=== PATIENT | female | born 1945 | race Caucasian/White ===

== ENCOUNTER 2020-03-12 11:27 | Outpatient (REF) | payer MEDICARE, MEDICAID, SELFPAY ==
--- NOTE | 2020-03-12 11:31 | MM_ITS ---
EXAMINATION: MM SCREENING DIGITAL BREAST TOMOSYNTHESIS, BILATERAL CLINICAL INFORMATION: Screening. Asymptomatic. The lifetime risk of breast cancer based on the Tyrer-Cuzick Model is 3.0%. COMPARISON: Mammography: March 07, 2019 and studies dating back to November 25, 2009 TECHNIQUE: Digital breast tomosynthesis is performed in both the craniocaudal and mediolateral oblique views along with computer-aided detection (CAD). Synthesized 2D images are generated from the tomosynthesis. FINDINGS: There are scattered areas of fibroglandular density (ACR BI-RADS breast composition Category b). No new abnormal dominant mass or suspicious grouping of microcalcifications identified. Postsurgical changes seen about the upper outer aspect of the left breast. A few stable densities are noted within the right breast. MM/MM tomosynthesis screening BI IMPRESSION: There are no significant changes from prior study. ASSESSMENT: BI-RADS 2: Benign RECOMMENDATION: Routine annual mammography screening. This patient's information was entered into a reminder system with a target due date for their next mammogram.
== END 2020-03-12 11:28 | disposition home or self-care (01) ==
LOC: HO.MAMMO 11:27
PROVIDERS: Visit Provider Internal Medicine
DX: Z12.31 Encounter for screening mammogram for malignant neoplasm of breast (principal)
CPT/HCPCS: 77063; 77067

== ENCOUNTER 2020-04-02 09:04 | Outpatient (REF) | payer MEDICARE, MEDICAID, SELFPAY ==
[2020-04-02 11:41] LABS: Anion Gap 12 (12-20); Blood Urea Nitrogen 16 mg/dL (9-16); Calcium 8.9 mg/dL (8.4-10.2); Carbon Dioxide 30 mmol/L (22-29); Chloride 102 mmol/L (96-108); Estimated Glomerular Filt Rate > 60; Glucose Random 88 mg/dL (60-115); Potassium 4.3 mmol/l (3.3-5.1); Sodium 140 mmol/L (135-145)
== END 2020-04-02 09:05 | disposition home or self-care (01) ==
LOC: HO.HMGCLDS 09:04
PROVIDERS: PCP Internal Medicine; Visit Provider Internal Medicine
DX: E66.9 Obesity, unspecified (principal); I10 Essential (primary) hypertension; K21.9 Gastro-esophageal reflux disease without esophagitis
CPT/HCPCS: 80048

== ENCOUNTER 2020-04-12 11:23 | Outpatient (REF) | payer MEDICARE, MEDICAID, SELFPAY ==
--- NOTE | 2020-04-12 11:23 | XR_ITS ---
EXAMINATION: XR PELVIS CLINICAL INFORMATION: Pelvis and right hip. COMPARISON: 12/14/2019 and 02/06/2019. TECHNIQUE: AP pelvis and single view of the right hip. FINDINGS: There is no evidence of acute fracture or diastasis of the pelvis. Patient is status post right total hip arthroplasty with femoral and acetabular components in position and unchanged since study of 12/14/2019. No acute fracture is appreciated. Left hip joint space unremarkable. A surgical suture line is seen about the left lower quadrant. Degenerative disc disease is seen at the L5-S1 level. XR/XR pelvis 1-2V IMPRESSION: No change in appearance of right total hip arthroplasty. No evidence of acute fracture or diastasis of the pelvis.
== END 2020-04-12 11:24 | disposition home or self-care (01) ==
LOC: HO.HOSX 11:23
PROVIDERS: Visit Provider Orthopaedic Surgery
DX: M25.551 Pain in right hip (principal); Z79.899 Other long term (current) drug therapy; Z87.891 Personal history of nicotine dependence
CPT/HCPCS: 72170; 99212

== ENCOUNTER 2020-08-20 10:01 | Outpatient (REF) | payer MEDICARE, MEDICAID, SELFPAY | END 2020-08-20 10:02 | disposition home or self-care (01) | LOC: HO.HMGCLDS 10:01 | PROVIDERS: Visit Provider Internal Medicine | DX: Z20.822 Contact with and (suspected) exposure to COVID-19 (principal) | CPT/HCPCS: C9803; U0003; U0005 ==

== ENCOUNTER 2021-01-16 06:05 | Outpatient (REF) | payer MEDICARE, MEDICAID, SELFPAY ==
[2021-01-16 11:10] LABS: MANUAL DIFF FLAG NO
[2021-01-16 11:11] LABS: Basophils Percent Auto 0.6 % (0-2); Eosinophils Absolute Auto 0.2 X10*3/uL (0.0-0.4); Eosinophils Percent Auto 2.8 % (0-4); Hematocrit 38.9 % (37-47); Hemoglobin 12.3 g/dl (12.0-16.0); Imm Gran Abs Auto 0.04 X10*3/uL (0.00-0.03); Imm Gran Pct Auto 0.6 % (0.0-0.4); Lymphocytes Absolute Auto 1.3 X10*3/uL (1.2-4.9); Lymphocytes Percent Auto 18.5 % (20-40); Mean Corpuscular HGB Conc 31.6 g/dl (31.0-35.0); Mean Corpuscular Hemoglobin 30.1 pg (27.0-33.0); Mean Corpuscular Volume 95.1 fL (80-98); Monocytes Absolute Auto 0.5 X10*3/uL (0.1-1.2); Neutrophils Absolute Auto 4.7 X10*3/uL (2.0-8.3); Neutrophils Percent Auto 69.5 % (45-73); Platelet Count 322 X10*3/uL (160-400); Red Blood Count 4.09 X10*6/uL (4.20-5.50); Red Cell Distribution Width 13.4 % (11.0-16.0); White Blood Count 6.8 X10*3/uL (4.8-10.8)
[2021-01-16 11:58] LABS: Alanine Aminotransferase < 6 U/L (0-31); Alkaline Phosphatase 112 U/L (39-117); Anion Gap 12 (12-20); Aspartate Amino Transferase 13 U/L (5-31); Bilirubin Total 0.3 mg/dL (0.0-1.0); Blood Urea Nitrogen 15 mg/dL (9-16); Calcium 8.6 mg/dL (8.4-10.2); Carbon Dioxide 30 mmol/L (22-29); Chloride 102 mmol/L (96-108); Estimated Glomerular Filt Rate > 60; Glucose Random 83 mg/dL (60-115); Potassium 3.4 mmol/L (3.3-5.1); Sodium 141 mmol/L (135-145); Total Protein 6.4 g/dL (6.5-8.0)
== END 2021-01-16 06:06 | disposition home or self-care (01) ==
LOC: HO.HMGCLDS 06:05
PROVIDERS: PCP Internal Medicine; Visit Provider Internal Medicine
DX: Z01.818 Encounter for other preprocedural examination (principal); K21.9 Gastro-esophageal reflux disease without esophagitis; I10 Essential (primary) hypertension
CPT/HCPCS: 36415; 80053; 85025

== ENCOUNTER 2021-01-20 07:02 | Day surgery (SDC) | payer MEDICARE, MEDICAID, SELFPAY ==
[2021-01-14 16:27] VITALS: BMI 46.8
--- NOTE | 2021-01-16 07:49 | MHC.SHP ---
Pre-Procedural Eval Section A Date of Service: 01/16/21 The patient is an INPATIENT: No Changes since office visit: No Cold of Flu in the past 2 weeks, No New Medical Problems, No Changes in Medication and No Patient answered all questions The History & Physical has been completed within 30 days and I have reviewed it.: Yes Section B Chief Complaint: Cataract Right Eye Allergies: Allergies Allergy/AdvReac Type Severity Reaction Status Date / Time sucralfate [Carafate] Allergy Unknown hives Verified 01/14/21 16:25 Plan Diagnosis/Plan: Unchanged I have reviewed the history and physical and performed a pertinent physical examination on my patient. No changes have occurred unless specified.
--- NOTE | 2021-01-17 08:20 | P.CONAN_ITS ---
Documented by User: Rosario Ramirez NP 01/17/21 08:21 HPI - Anesthesia Eval Consult details Narrative: 75yo F for Right Cataract Extraction IOL Insertion PCP cleared No previous cataract on record PMFSH Active Problems Active Problems: All Active Problems (Updated 01/14/21 @ 15:25 by Kayla Smith MD) Morbid obesity due to excess calories (Acute) Pre-op evaluation (Acute) Hip pain, right (Acute) Nail fungus (Acute) Obesity (Acute) Chronic GERD (Acute) Depression, major, recurrent (Acute) Hypertension, essential (Acute) Past Medical History Medical History Chronic GERD Depression, major, recurrent Hip pain, right Hypertension, essential Nail fungus Family History Family History Father No problems noted. Mother Alzheimer's disease Maternal Grandmother Cancer Maternal Grandfather No problems noted. Paternal Grandfather No problems noted. Paternal Grandmother No problems noted. Maternal Aunt Cancer Sister No problems noted. Son No problems noted. Daughter No problems noted. Surgical History Surgical History History of bilateral tubal ligation History of tonsillectomy History of total hip arthroplasty Social History Social History Housing: Other (mobile home) Housing Other:: Mobile Home Are you a primary adult live in caregiver to a significant other at home: No Do you presently have visiting nurse or other home services: No Alcohol intake: never Patient Tobacco Use Status: Former Tobacco user Quit Date: 10 yrs ago Tobacco use type: Cigarette Years Smoked: 40 years Use of substances other than those prescribed or required for medical reasons: No Have you been hit, kicked, punched, or otherwise hurt by someone within the past year? If so, by whom?: No Are you DNR?: No Advance Directives: No Advance Directives Information Provided: No Advance Directives on File: No Recently lost weight without trying: No Eating poorly because of decreased appetite: No Nutrition Risks: No Nutritional Risk Patient : No Current occupational status: retired and other Current occupation: right handed Meds Allergies Allergy/AdvReac Type Severity Reaction Status Date / Time sucralfate [Carafate] Allergy Unknown hives Verified 01/14/21 16:25 Home Medications Medication Instructions Recorded Confirmed Last Taken Type aripiprazole 10 mg tablet (Abilify) 10 mg PO DAILY 04/02/20 01/14/21 01/20/21 History ascorbic acid (vitamin C) 1,000 mg 2 g PO DAILY tab 04/02/20 01/14/21 Unknown History tablet bupropion HCl 300 mg 24 hr tablet, 300 mg PO QAM 04/02/20 01/14/21 01/20/21 History extended release (Wellbutrin XL) calcium [calcium citrate] PO DAILY 04/02/20 01/14/21 Unknown History cholecalciferol (vitamin D3) 50 50 mcg PO DAILY 04/02/20 01/14/21 Unknown History mcg (2,000 unit) capsule ferrous sulfate 325 mg (65 mg 325 mg PO DAILY 04/02/20 01/14/21 Unknown History iron) tablet (Feosol) multivitamin (Daily Multi-Vitamin) 1 tab PO DAILY 04/02/20 01/14/21 Unknown History pantoprazole 40 mg tablet,delayed 40 mg PO DAILY 04/02/20 01/14/21 Unknown History release primidone 50 mg tablet 50 mg PO BEDTIME 04/02/20 01/14/21 Unknown History escitalopram oxalate 20 mg tablet 20 mg PO DAILY 07/30/20 01/14/21 01/20/21 History (Lexapro) Exam Exam Date and Time: January 17, 2021 0820 Height,Weight and Vital Signs: Height 5 ft Weight 108.862 kg Assessment and Plan Assessment Anesthesia Assessment: Chart Reviewed Documented by User: Carmen Higuera MD 01/20/21 08:52 [facility] Past Medical History Medical History Chronic GERD Depression, major, recurrent Hip pain, right Hypertension, essential Nail fungus Family History Family History Father No problems noted. Mother Alzheimer's disease Maternal Grandmother Cancer Maternal Grandfather No problems noted. Paternal Grandfather No problems noted. Paternal Grandmother No problems noted. Maternal Aunt Cancer Sister No problems noted. Son No problems noted. Daughter No problems noted. Family history of problems with anesthesia: No Surgical History Surgical History History of bilateral tubal ligation History of tonsillectomy History of total hip arthroplasty History of Problems with Anesthesia: No Social History Social History Housing: Other (mobile home) Housing Other:: Mobile Home Are you a primary adult live in caregiver to a significant other at home: No Do you presently have visiting nurse or other home services: No Alcohol intake: never Patient Tobacco Use Status: Former Tobacco user Quit Date: 10 yrs ago Tobacco use type: Cigarette Years Smoked: 40 years Use of substances other than those prescribed or required for medical reasons: No Have you been hit, kicked, punched, or otherwise hurt by someone within the past year? If so, by whom?: No Are you DNR?: No Advance Directives: No Advance Directives Information Provided: No Advance Directives on File: No Recently lost weight without trying: No Eating poorly because of decreased appetite: No Nutrition Risks: No Nutritional Risk Patient : No Current occupational status: retired and other Current occupation: right handed Meds Allergies Allergy/AdvReac Type Severity Reaction Status Date / Time sucralfate [Carafate] Allergy Unknown hives Verified 01/14/21 16:25 Home Medications Medication Instructions Recorded Confirmed Last Taken Type aripiprazole 10 mg tablet (Abilify) 10 mg PO DAILY 04/02/20 01/14/21 01/20/21 History ascorbic acid (vitamin C) 1,000 mg 2 g PO DAILY tab 04/02/20 01/14/21 Unknown History tablet bupropion HCl 300 mg 24 hr tablet, 300 mg PO QAM 04/02/20 01/14/21 01/20/21 History extended release (Wellbutrin XL) calcium [calcium citrate] PO DAILY 04/02/20 01/14/21 Unknown History cholecalciferol (vitamin D3) 50 50 mcg PO DAILY 04/02/20 01/14/21 Unknown History mcg (2,000 unit) capsule ferrous sulfate 325 mg (65 mg 325 mg PO DAILY 04/02/20 01/14/21 Unknown History iron) tablet (Feosol) multivitamin (Daily Multi-Vitamin) 1 tab PO DAILY 04/02/20 01/14/21 Unknown History pantoprazole 40 mg tablet,delayed 40 mg PO DAILY 04/02/20 01/14/21 Unknown History release primidone 50 mg tablet 50 mg PO BEDTIME 04/02/20 01/14/21 Unknown History escitalopram oxalate 20 mg tablet 20 mg PO DAILY 07/30/20 01/14/21 01/20/21 History (Lexapro) Exam Height,Weight and Vital Signs: Height 5 ft Weight 108.862 kg Vital Signs Temp Pulse Resp BP Pulse Ox 01/20/21 08:03 97.7 F 57 18 173/65 H 96 Airway Mallampati Class: II TM Dist: >3cm Neck ROM: Full Loose/Missing/Broken Teeth: Yes (No teeth) Heart: RRR Lungs: CTAB Assessment and Plan Assessment Anesthesia Assessment: Anesthesia Plan Discussed Final Anesthetic Review Family History of Problems with Anesthesia: No History of Problems with Anesthesia: No NPO: Yes ASA Class: III Final Preanesthetic Review: No Changes in Pt Med Stat, Meds/Allgs Chart Reviewed, Consent Obtained/Reviewed and Anes Risks/Benef Reviewed Patient Risk: Intermediate Procedure Risk: Low Assessment/Block/Sedation in SS: Assess/Block/Sedation-SS Anesthetic Plan Anesthetic Plan: MAC: Disposition: Standard PACU
[2021-01-20 08:03] VITALS: BP 173/65; PULSE 57; RESP 18; TEMP 36.5; O2SAT 96
[2021-01-20] MEDS: Tetracaine HCl/PF 0.5% Oph Sol 4 ML DROPS 1 DROP EYE-RIGHT (08:06)
[2021-01-20] MEDS: Tropicamide 1 % Ophth Sol 3 ML BTL 1 DROP EYE-RIGHT ×3 (08:07→08:14)
[2021-01-20] MEDS: Phenylephrine HCL 2.5% Oph SoL 2 ML BOTTLE 1 DROP EYE-RIGHT ×3 (08:10→08:16)
[2021-01-20] MEDS: Lactated Ringers 500 ML 50 ML IV (08:21)
--- NOTE | 2021-01-20 09:07 | HO.PNOPHT ---
Ophthalmology Procedure Procedure Date of Service: 01/20/21 Ophthalmology Viscoelastic: Ubaldo Mejiat Dual Pack Pro Ophthalmology Lenses: TECBECCA [id number] (21) Procedure Notes: PREOPERATIVE DIAGNOSIS: Decreased visual acuity right eye secondary to cataract POSTOPERATIVE DIAGNOSIS: Same PROCEDURE: Right cataract extraction with intraocular lens insertion SURGEON: Kirk Melara M.D. ANESTHESIA: Topical/MAC ESTIMATED BLOOD LOSS: None COMPLICATIONS: None After obtaining informed consent, the patient was brought to the operating room suite and placed in the supine position. After adequate sedation per anesthesia, topical drops of Tetracaine were given to the right eye. The eye was then prepped and draped in the usual sterile fashion. The operating room microscope was then positioned over the operative eye and a lid speculum placed. A paracentesis was created. Viscoelastic was then instilled into the anterior chamber. A three plane incision was then created temporally, utilizing a 2.85 mm keratome. Capsulotomy forceps were then utilized to create a circular tear capsulotomy. Hydrodissection and hydrodelineation were carried out until adequate mobilization of the nucleus occurred. Phacoemulsification was then utilized to remove the dense central nucleus followed by removal of the cortical material utilizing the automated aspiration irrigation unit. Viscoelastic was instilled into the posterior capsular bag followed by placement of a posterior chamber intraocular lens without difficulty. The residual Viscoelastic was then removed utilizing the automated IA machine. The wound was checked and found to be watertight. The patient tolerated the procedure well and the lid speculum was removed. Intracameral injection of Vigamox 0.1 mL followed by a subtenon injection of Kenalog-40 0.2 mL were administered. The patient will be seen in the a.m.
[2021-01-20 09:30] VITALS: BP 136/71; PULSE 55; RESP 16; TEMP 36.2; O2SAT 96
== END 2021-01-20 09:37 | disposition home or self-care (01) ==
PROVIDERS: PCP Internal Medicine; Visit Provider Ophthalmology
PROC: (CPT 66985; principal; 2021-01-20 09:10)
DX: H25.11 Age-related nuclear cataract, right eye (principal); H52.4 Presbyopia; I10 Essential (primary) hypertension; F32.9 Major depressive disorder, single episode, unspecified; Z87.891 Personal history of nicotine dependence; Z79.899 Other long term (current) drug therapy
CPT/HCPCS: 66984; J2250; J3010; J3300; V2632

== ENCOUNTER 2021-02-03 06:40 | Day surgery (SDC) | payer MEDICARE, MEDICAID, SELFPAY ==
[2021-01-14 16:30] VITALS: BMI 46.8
--- NOTE | 2021-01-29 13:17 | MHC.SHP ---
Pre-Procedural Eval Section A Date of Service: 01/29/21 The patient is an INPATIENT: No Changes since office visit: No Cold of Flu in the past 2 weeks, No New Medical Problems, No Changes in Medication and No Patient answered all questions The History & Physical has been completed within 30 days and I have reviewed it.: Yes Section B Chief Complaint: Cataract Left Eye Allergies: Allergies Allergy/AdvReac Type Severity Reaction Status Date / Time sucralfate [Carafate] Allergy Unknown hives Verified 01/14/21 16:25 Plan Diagnosis/Plan: Unchanged I have reviewed the history and physical and performed a pertinent physical examination on my patient. No changes have occurred unless specified.
--- NOTE | 2021-01-31 08:34 | P.CONAN_ITS ---
Documented by User: Rosario Ramirez NP 01/31/21 08:35 HPI - Anesthesia Eval Consult details Narrative: 75yo F for Left Cataract Extraction IOL Insertion PCP cleared R eye 01/20/21 with MAC: Fent 50, Midaz 2 PMFSH Active Problems Active Problems: All Active Problems (Updated 01/14/21 @ 15:25 by Kayla Smith MD) Obesity (Acute) Pre-op evaluation (Acute) Morbid obesity due to excess calories (Acute) Hip pain, right (Acute) Nail fungus (Acute) Chronic GERD (Acute) Depression, major, recurrent (Acute) Hypertension, essential (Acute) Past Medical History Medical History Chronic GERD Depression, major, recurrent Hip pain, right Hypertension, essential Nail fungus Family History Family History Father No problems noted. Mother Alzheimer's disease Maternal Grandmother Cancer Maternal Grandfather No problems noted. Paternal Grandfather No problems noted. Paternal Grandmother No problems noted. Maternal Aunt Cancer Sister No problems noted. Son No problems noted. Daughter No problems noted. Family history of problems with anesthesia: No Surgical History Surgical History (Updated 01/28/21 @ 15:11 by Shobha Barker RN) History of bilateral tubal ligation History of cataract extraction History of tonsillectomy History of total hip arthroplasty History of Problems with Anesthesia: No Social History Social History Housing: Other (mobile home) Housing Other:: Mobile Home Are you a primary progressive care unit registered nurse to a significant other at home: No Do you presently have visiting nurse or other home services: No Alcohol intake: never Patient Tobacco Use Status: Former Tobacco user Quit Date: 10 yrs ago Tobacco use type: Cigarette Years Smoked: 40 years Use of substances other than those prescribed or required for medical reasons: No Have you been hit, kicked, punched, or otherwise hurt by someone within the past year? If so, by whom?: No Are you DNR?: No Advance Directives: No Advance Directives Information Provided: No Advance Directives on File: No Recently lost weight without trying: No Eating poorly because of decreased appetite: No Nutrition Risks: No Nutritional Risk Patient : No Current occupational status: retired and other Current occupation: right handed Meds Allergies Allergy/AdvReac Type Severity Reaction Status Date / Time sucralfate [Carafate] Allergy Unknown hives Verified 01/14/21 16:25 Home Medications Medication Instructions Recorded Confirmed Last Taken Type aripiprazole 10 mg tablet (Abilify) 10 mg PO DAILY 04/02/20 01/14/21 01/20/21 History ascorbic acid (vitamin C) 1,000 mg 2 g PO DAILY tab 04/02/20 01/14/21 Unknown History tablet bupropion HCl 300 mg 24 hr tablet, 300 mg PO QAM 04/02/20 01/14/21 01/20/21 History extended release (Wellbutrin XL) calcium [calcium citrate] PO DAILY 04/02/20 01/14/21 Unknown History cholecalciferol (vitamin D3) 50 50 mcg PO DAILY 04/02/20 01/14/21 Unknown History mcg (2,000 unit) capsule ferrous sulfate 325 mg (65 mg 325 mg PO DAILY 04/02/20 01/14/21 Unknown History iron) tablet (Feosol) multivitamin (Daily Multi-Vitamin) 1 tab PO DAILY 04/02/20 01/14/21 Unknown History pantoprazole 40 mg tablet,delayed 40 mg PO DAILY 04/02/20 01/14/21 Unknown History release primidone 50 mg tablet 50 mg PO BEDTIME 04/02/20 01/14/21 Unknown History escitalopram oxalate 20 mg tablet 20 mg PO DAILY 07/30/20 01/14/21 01/20/21 History (Lexapro) Exam Exam Date and Time: January 31, 2021 0834 Height,Weight and Vital Signs: Height 5 ft Weight 108.862 kg Assessment and Plan Assessment Anesthesia Assessment: Chart Reviewed Final Anesthetic Review Family History of Problems with Anesthesia: No History of Problems with Anesthesia: No Documented by User: Jose Luis Elizabeth MD 02/03/21 07:07 [facility] Past Medical History Medical History Chronic GERD Depression, major, recurrent Hip pain, right Hypertension, essential Nail fungus Family History Family History Father No problems noted. Mother Alzheimer's disease Maternal Grandmother Cancer Maternal Grandfather No problems noted. Paternal Grandfather No problems noted. Paternal Grandmother No problems noted. Maternal Aunt Cancer Sister No problems noted. Son No problems noted. Daughter No problems noted. Surgical History Surgical History (Updated 01/28/21 @ 15:11 by Shobha Barker RN) History of bilateral tubal ligation History of cataract extraction History of tonsillectomy History of total hip arthroplasty Social History Social History Housing: Other (mobile home) Housing Other:: Mobile Home Are you a primary progressive care unit registered nurse to a significant other at home: No Do you presently have visiting nurse or other home services: No Alcohol intake: never Patient Tobacco Use Status: Former Tobacco user Quit Date: 10 yrs ago Tobacco use type: Cigarette Years Smoked: 40 years Use of substances other than those prescribed or required for medical reasons: No Have you been hit, kicked, punched, or otherwise hurt by someone within the past year? If so, by whom?: No Are you DNR?: No Advance Directives: No Advance Directives Information Provided: No Advance Directives on File: No Recently lost weight without trying: No Eating poorly because of decreased appetite: No Nutrition Risks: No Nutritional Risk Patient : No Current occupational status: retired and other Current occupation: right handed Meds Allergies Allergy/AdvReac Type Severity Reaction Status Date / Time sucralfate [Carafate] Allergy Unknown hives Verified 01/14/21 16:25 Home Medications Medication Instructions Recorded Confirmed Last Taken Type aripiprazole 10 mg tablet (Abilify) 10 mg PO DAILY 04/02/20 01/14/21 01/20/21 History ascorbic acid (vitamin C) 1,000 mg 2 g PO DAILY tab 04/02/20 01/14/21 Unknown History tablet bupropion HCl 300 mg 24 hr tablet, 300 mg PO QAM 04/02/20 01/14/21 01/20/21 History extended release (Wellbutrin XL) calcium [calcium citrate] PO DAILY 04/02/20 01/14/21 Unknown History cholecalciferol (vitamin D3) 50 50 mcg PO DAILY 04/02/20 01/14/21 Unknown History mcg (2,000 unit) capsule ferrous sulfate 325 mg (65 mg 325 mg PO DAILY 04/02/20 01/14/21 Unknown History iron) tablet (Feosol) multivitamin (Daily Multi-Vitamin) 1 tab PO DAILY 04/02/20 01/14/21 Unknown History pantoprazole 40 mg tablet,delayed 40 mg PO DAILY 04/02/20 01/14/21 Unknown History release primidone 50 mg tablet 50 mg PO BEDTIME 04/02/20 01/14/21 Unknown History escitalopram oxalate 20 mg tablet 20 mg PO DAILY 07/30/20 01/14/21 01/20/21 History (Lexapro) Exam Airway Mallampati Class: III TM Dist: >3cm Neck ROM: Full Denture: Upper and Lower Heart: [id number] Lungs: cta b/l Assessment and Plan Assessment Anesthesia Assessment: Anesthesia Plan Discussed Final Anesthetic Review NPO: Yes ASA Class: III Final Preanesthetic Review: No Changes in Pt Med Stat, Meds/Allgs Chart Reviewed, Consent Obtained/Reviewed and Anes Risks/Benef Reviewed Patient Risk: Intermediate Procedure Risk: Low Assessment/Block/Sedation in SS: Assess/Block/Sedation-SS Anesthetic Plan Anesthetic Plan: MAC: and Agree w/ Assess. and Plan Disposition: Standard PACU
[2021-02-03 06:59] VITALS: BP 160/68; PULSE 63; RESP 16; TEMP 36.1; O2SAT 98
[2021-02-03] MEDS: Tetracaine HCl/PF 0.5% Oph Sol 4 ML DROPS 1 DROP EYE-LEFT (07:05)
[2021-02-03] MEDS: Lactated Ringers 500 ML 50 ML IV (07:06)
[2021-02-03] MEDS: Tropicamide 1 % Ophth Sol 3 ML BTL 1 DROP EYE-LEFT ×3 (07:07→07:20)
[2021-02-03] MEDS: Phenylephrine HCL 2.5% Oph SoL 2 ML BOTTLE 1 DROP EYE-LEFT ×3 (07:11→07:23)
--- NOTE | 2021-02-03 08:24 | HO.PNOPHT ---
Ophthalmology Procedure Procedure Date of Service: 02/03/21 Ophthalmology Viscoelastic: Healon Duet Dual Pack Pro Ophthalmology Lenses: TECNIS [id number] (21.5) Procedure Notes: PREOPERATIVE DIAGNOSIS: Decreased visual acuity left eye secondary to cataract POSTOPERATIVE DIAGNOSIS: Same PROCEDURE: Left cataract extraction with intraocular lens insertion SURGEON: Kirk Melara M.D. ANESTHESIA: Topical/MAC ESTIMATED BLOOD LOSS: None COMPLICATIONS: None After obtaining informed consent, the patient was brought to the operation room suite and placed in the supine position. After adequate sedation per anesthesia, topical drops of Tetracaine were given to the left eye. The eye was then prepped and draped in the usual sterile fashion. The operating room microscope was then positioned over the operative eye and a lid speculum placed. A paracentesis was created. Viscoelastic was then instilled into the anterior chamber. A three plane incision was then created temporally, utilizing a 2.85 mm keratome. Capsulotomy forceps were then utilized to create a circular tear capsulotomy. Hydrodissection and hydrodelineation were carried out until adequate mobilization of the nucleus occurred. Phacoemulsification was then utilized to remove the dense central nucleus followed by removal of the cortical material utilizing the automated aspiration irrigation unit. Viscoat elastic was instilled into the posterior capsular bag followed by placement of a posterior chamber intraocular lens without difficulty. The residual Viscoat elastic was then removed utilizing the automated IA machine. The wound was check and found to be watertight. The patient tolerated the procedure well and the lid speculum was removed. Intracameral injection of Vigamox 0.1 mL followed by a subtenon injection of Kenalog-40 0.2 mL were administered. The patient will be seen in the a.m.
[2021-02-03 08:44] VITALS: BP 150/72; PULSE 53; RESP 12; TEMP 36.1; O2SAT 98
== END 2021-02-03 08:57 | disposition home or self-care (01) ==
PROVIDERS: PCP Internal Medicine; Visit Provider Ophthalmology
PROC: (CPT 66985; principal; 2021-02-03 08:20)
DX: H25.12 Age-related nuclear cataract, left eye (principal)
CPT/HCPCS: 66984; J2250; J3010; J3300; V2632

== ENCOUNTER 2021-03-14 07:16 | Outpatient (REF) | payer MEDICARE, MEDICAID, SELFPAY ==
--- NOTE | ~2021-03-14 | MM_ITS ---
EXAMINATION: MM SCREENING DIGITAL BREAST TOMOSYNTHESIS, BILATERAL CLINICAL INFORMATION: Screening. Asymptomatic. The lifetime risk of breast cancer based on the Tyrer-Cuzick Model is 2%. COMPARISON: Mammography: 03/12/2020, 03/07/2019, 02/26/2018 TECHNIQUE: Digital breast tomosynthesis is performed in both the craniocaudal and mediolateral oblique views along with computer-aided detection (CAD). Synthesized 2D images are generated from the tomosynthesis. FINDINGS: There are scattered areas of fibroglandular density (ACR BI-RADS breast composition Category b). There are no significant masses, abnormal calcifications, or other abnormalities. Parenchymal pattern is similar to prior studies. There is a biopsy clip marker again seen central lower left breast the axilla and skin contours are unremarkable. No significant changes. MM/MM tomosynthesis screening BI IMPRESSION: No mammographic evidence of malignancy. ASSESSMENT: BI-RADS 2: Benign RECOMMENDATION: Routine annual mammography screening. This patient's information was entered into a reminder system with a target due date for their next mammogram.
== END 2021-03-14 07:17 | disposition home or self-care (01) ==
LOC: HO.MAMMO 07:16
PROVIDERS: Visit Provider Internal Medicine
DX: Z12.31 Encounter for screening mammogram for malignant neoplasm of breast (principal)
CPT/HCPCS: 77063; 77067

== ENCOUNTER 2021-05-08 08:21 | Outpatient (REF) | payer MEDICARE, MEDICAID, SELFPAY | END 2021-05-08 08:22 | disposition home or self-care (01) | LOC: HO.HMGCLDS 08:21 | PROVIDERS: Visit Provider Internal Medicine | DX: Z20.822 Contact with and (suspected) exposure to COVID-19 (principal) | CPT/HCPCS: C9803; U0003; U0005 ==

== ENCOUNTER 2021-05-19 06:29 | Outpatient (REF) | payer MEDICARE, MEDICAID, SELFPAY ==
[2021-05-19 12:18] LABS: Anion Gap 11 (12-20); Blood Urea Nitrogen 19 mg/dL (9-16); Carbon Dioxide 32 mmol/L (22-29); Chloride 103 mmol/L (96-108); Estimated Glomerular Filt Rate > 60; Potassium 3.7 mmol/L (3.3-5.1); Sodium 142 mmol/L (135-145)
== END 2021-05-19 06:30 | disposition home or self-care (01) ==
LOC: HO.HMGCLDS 06:29
PROVIDERS: PCP Internal Medicine; Visit Provider Internal Medicine
DX: K21.9 Gastro-esophageal reflux disease without esophagitis (principal); E66.01 Morbid (severe) obesity due to excess calories; I10 Essential (primary) hypertension
CPT/HCPCS: 36415; 80051; 82565; 84520

== ENCOUNTER → 2021-09-11 10:41 | Outpatient (BNVA) | payer MEDICARE, MEDICAID, SELFPAY | PROVIDERS: PCP Internal Medicine; Visit Provider Physician Assistant | DX: E66.01 Morbid (severe) obesity due to excess calories (principal); Z98.84 Bariatric surgery status | CPT/HCPCS: 99212 ==

== ENCOUNTER 2021-09-15 06:35 | Outpatient (REF) | payer MEDICARE, MEDICAID, SELFPAY ==
[2021-09-15 11:20] LABS: MANUAL DIFF FLAG NO
[2021-09-15 11:28] LABS: Basophils Percent Auto 0.4 % (0-2); Eosinophils Absolute Auto 0.1 X10*3/uL (0.0-0.4); Eosinophils Percent Auto 0.9 % (0-4); Hematocrit 40.9 % (37.0-47.0); Hemoglobin 12.7 g/dl (12.0-16.0); Imm Gran Abs Auto 0.02 X10*3/uL (0.00-0.03); Imm Gran Pct Auto 0.4 % (0.0-0.4); Lymphocytes Absolute Auto 1.5 X10*3/uL (1.2-4.9); Lymphocytes Percent Auto 27.5 % (20-40); Mean Corpuscular HGB Conc 31.1 g/dl (31.0-35.0); Mean Corpuscular Hemoglobin 30.2 pg (27.0-33.0); Mean Corpuscular Volume 97.1 fL (80.0-98.0); Mean Platelet Volume 9.4 fL (9.4-12.3); Monocytes Absolute Auto 0.4 X10*3/uL (0.1-1.2); Neutrophils Absolute Auto 3.5 x10*3/uL (2.0-8.3); Neutrophils Percent Auto 62.8 % (45-73); Platelet Count 296 X10*3/uL (160-400); Red Blood Count 4.21 X10*6/uL (4.20-5.50); Red Cell Distribution Width 13.8 % (11.0-16.0); White Blood Count 5.5 X10*3/uL (4.8-10.8)
[2021-09-15 11:42] LABS: Estimated Average Glucose 103 mg/dL; Hemoglobin A1c % 5.2 %
[2021-09-15 11:50] LABS: Alanine Aminotransferase 11 U/L (0-31); Alkaline Phosphatase 99 U/L (39-117); Anion Gap 16 (12-20); Aspartate Amino Transferase 19 U/L (5-31); Bilirubin Total 0.3 mg/dL (0.0-1.0); Blood Urea Nitrogen 26 mg/dL (9-16); Calcium 9.4 mg/dL (8.4-10.2); Carbon Dioxide 30 mmol/L (22-29); Chloride 98 mmol/L (96-108); Cholesterol 175 mg/dL; Estimated Glomerular Filt Rate > 60; Glucose Fasting 88 mg/dL (60-99); HDL Cholesterol 55 mg/dL; Iron 42 mcg/dL (30-160); LDL Cholesterol Calculated 91 mg/dl; Percent Iron Saturation 14 % (15-50); Potassium 3.6 mmol/L (3.3-5.1); Sodium 140 mmol/L (135-145); Total Iron Binding Capacity 300 mcg/dL (228-428); Total Protein 6.7 g/dL (6.5-8.0); Triglycerides 148 mg/dL; Unsaturated Iron Binding 258 ug/dL
[2021-09-15 11:58] LABS: Ferritin 233 ng/mL (10-250); Insulin 6 uU/mL (2-29); TSH reflex Free T4 1.12 uIU/mL (0.32-4.0); Vitamin D 25-OH Total 20.6 ng/mL (>30)
[2021-09-15 12:18] LABS: Folate > 20.0 ng/mL (> or = 4.0); Vitamin B12 1052 pg/mL (200-900)
[2021-09-16 12:42] LABS: Calcium (PTHI) 9.1 mg/dL (8.6-10.4); PTHI 77 pg/mL (16-77)
[2021-09-18 00:03] LABS: Zinc 69 mcg/dL (60-130)
[2021-09-18 22:37] LABS: Vitamin A 65 mcg/dL (38-98)
[2021-09-22 04:41] LABS: Vitamin B1 34 nmol/L (8-30)
== END 2021-09-15 06:36 | disposition home or self-care (01) ==
LOC: HO.HMGCLDS 06:35
PROVIDERS: PCP Internal Medicine; Visit Provider Physician Assistant
DX: Z00.01 Encounter for general adult medical examination with abnormal findings (principal); E66.01 Morbid (severe) obesity due to excess calories; K21.9 Gastro-esophageal reflux disease without esophagitis; I10 Essential (primary) hypertension; F33.9 Major depressive disorder, recurrent, unspecified; Z98.84 Bariatric surgery status; Z91.14 Patient's other noncompliance with medication regimen
CPT/HCPCS: 36415; 80053; 80061; 82306; 82607; 82728; 82746; 83036; 83525; 83540; 83970; 84425; 84443; 84590; 84630; 85025; 86140

== ENCOUNTER → 2021-09-19 12:51 | Outpatient (BNVA) | payer MEDICARE, MEDICAID, SELFPAY | PROVIDERS: PCP Internal Medicine; Referring Provider Internal Medicine; Visit Provider Nurse Practitioner | DX: Z12.11 Encounter for screening for malignant neoplasm of colon (principal); Z80.0 Family history of malignant neoplasm of digestive organs | CPT/HCPCS: 99202 ==

== ENCOUNTER 2021-10-03 14:38 | Emergency (ER) | payer MEDICARE, MEDICAID, SELFPAY ==
[2021-10-03 16:06] VITALS: BP 138/61; PULSE 71; RESP 16; TEMP 36.8; O2SAT 96; BMI 41.0
--- NOTE | 2021-10-03 20:44 | PC.NURSE ---
Jerman ROCHA called for pt in the waiting room, but no response.
== END 2021-10-03 20:46 | disposition left against medical advice (07) ==
LOC: HO.ED 20:46
PROVIDERS: Emergency Provider Emergency Medicine; PCP Internal Medicine
DX: L02.415 Cutaneous abscess of right lower limb (principal)
CPT/HCPCS: 99281

== ENCOUNTER → 2021-10-10 09:57 | Outpatient (BNVA) | payer MEDICARE, MEDICAID, SELFPAY | PROVIDERS: PCP Internal Medicine; Visit Provider Physician Assistant | DX: E66.01 Morbid (severe) obesity due to excess calories (principal); Z68.42 Body mass index [BMI] 45.0-49.9, adult; Z98.84 Bariatric surgery status | CPT/HCPCS: 99212 ==

== ENCOUNTER 2021-10-14 13:55 | Outpatient (REF) | payer MEDICARE, MEDICAID, SELFPAY | END 2021-10-14 13:56 | disposition home or self-care (01) | LOC: HO.LNP 13:55 | PROVIDERS: Visit Provider Emergency Medicine | DX: T14.8XXA Other injury of unspecified body region, initial encounter (principal) | CPT/HCPCS: 87071; 87077; 87186; 87205 ==

== ENCOUNTER 2021-10-21 11:30 | Outpatient (REF) | payer MEDICARE, MEDICAID, SELFPAY ==
--- NOTE | ~2021-10-21 | XR_ITS ---
EXAMINATION: XR HIP, RIGHT CLINICAL INFORMATION: Pain right hip. COMPARISON: AP pelvis 04/12/2020 TECHNIQUE: Two views of the right hip. FINDINGS: There is a total right hip prosthesis with the prosthetic components in satisfactory alignment. No periprosthetic loosening or fracture seen. Rest the visualized right hip is normal. There is hypertrophic bony changes along the greater and lesser trochanter. XR/XR hip RT min 2V IMPRESSION: Total right hip arthroplasty with prosthetic components in satisfactory alignment. Hypertrophic bony changes are seen along the greater and lesser trochanter.
[2021-10-21 13:56] LABS: Cholesterol 172 mg/dL; Estimated Glomerular Filt Rate > 60; HDL Cholesterol 52 mg/dL; LDL Cholesterol Calculated 89 mg/dl; Triglycerides 155 mg/dL
[2021-10-21 14:12] LABS: TSH reflex Free T4 0.73 uIU/mL (0.32-4.0)
[2021-10-21 14:28] LABS: Vitamin B12 1269 pg/mL (200-900)
== END 2021-10-21 11:31 | disposition home or self-care (01) ==
LOC: HO.HMGCX 11:30
PROVIDERS: PCP Internal Medicine; Visit Provider Internal Medicine
DX: Z00.01 Encounter for general adult medical examination with abnormal findings (principal); M25.551 Pain in right hip; E66.01 Morbid (severe) obesity due to excess calories; F33.9 Major depressive disorder, recurrent, unspecified; I10 Essential (primary) hypertension; K21.9 Gastro-esophageal reflux disease without esophagitis
CPT/HCPCS: 36415; 73502; 80061; 82565; 82607; 84443

== ENCOUNTER → 2021-11-07 08:18 | Outpatient (BNVA) | payer MEDICARE, MEDICAID, SELFPAY | PROVIDERS: PCP Internal Medicine; Visit Provider Surgery | DX: M25.551 Pain in right hip (principal); E66.9 Obesity, unspecified; Z68.42 Body mass index [BMI] 45.0-49.9, adult | CPT/HCPCS: 99202 ==

== ENCOUNTER → 2021-11-14 09:16 | Outpatient (BNVA) | payer MEDICARE, MEDICAID, SELFPAY | PROVIDERS: PCP Internal Medicine; Visit Provider Physician Assistant | DX: E66.01 Morbid (severe) obesity due to excess calories (principal); Z68.41 Body mass index [BMI] 40.0-44.9, adult; Z98.84 Bariatric surgery status | CPT/HCPCS: 99212 ==

== ENCOUNTER 2021-11-18 09:33 | Outpatient (REF) | payer MEDICARE, MEDICAID, SELFPAY ==
--- NOTE | ~2021-11-18 | CT_ITS ---
EXAMINATION: CT PELVIS WITHOUT CONTRAST CLINICAL INFORMATION: Enterococcus as the cause of diseases classified elsewhere. COMPARISON: Prior CT from 2010. TECHNIQUE: Helical scanning was performed with submillimeter collimation through the pelvis. Sagittal and coronal multiplanar 2-D reconstructions were obtained. CONTRAST: None DLP: 1314 mGy-cm FINDINGS: PELVIC ORGANS: There is diverticulosis without CT evidence of acute diverticulitis. Rectal and perirectal fat are clear. Urinary bladder not well visualized, partially obscured by beam-hardening artifact from right hip prosthesis. There is diverticulosis of the sigmoid colon without evidence of acute diverticulitis. There are surgical suture lines. No CT evidence of obstruction or dehiscence. 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 Right hip prosthesis device in place causing metal artifact. Mild DJD left hip. No CT evidence of a fracture. There are compression fractures of lower lumbar vertebrae included at the margin of the study, indeterminate age. SOFT TISSUES: There is a small anterior abdominal wall hernia measuring 1.4 cm containing fat only. OTHERS: There are heavy vascular calcifications. Appendix visualized normal in diameter. There is no CT evidence of loculated fluid collection, abscess or other findings to explain patient's symptoms. CT/CT pelvis wo con IMPRESSION: *Right hip prosthesis device in place, there is metal artifact, image distortion by beam-hardening artifact, no evidence of volume forming fluid collection or abscess or other reason to explain patient's symptoms. *Diverticulosis without evidence of acute diverticulitis. *Partial compression fractures of L3, L4 and L5, indeterminate age, degenerative changes of the SI joints and left hip. *Suture line colonic anastomosis, no evidence of obstruction or dehiscence. *Normal appendix.
== END 2021-11-18 09:34 | disposition home or self-care (01) ==
LOC: HO.CT 09:33
PROVIDERS: Absent Provider Orthopaedic Surgery; PCP Internal Medicine; Visit Provider Surgery
DX: M25.551 Pain in right hip (principal); B95.2 Enterococcus as the cause of diseases classified elsewhere; E66.9 Obesity, unspecified
CPT/HCPCS: 72192

== ENCOUNTER → 2021-11-21 13:17 | Outpatient (BNVA) | payer MEDICARE, MEDICAID, SELFPAY | PROVIDERS: PCP Internal Medicine; Visit Provider Surgery | DX: M25.551 Pain in right hip (principal); B95.2 Enterococcus as the cause of diseases classified elsewhere; Z96.641 Presence of right artificial hip joint | CPT/HCPCS: 99212 ==

== ENCOUNTER 2021-11-28 07:45 | Outpatient (REF) | payer MEDICARE, MEDICAID, SELFPAY ==
--- NOTE | ~2021-11-28 | XR_ITS ---
EXAMINATION: XR HIP, RIGHT CLINICAL INFORMATION: Right hip pain. COMPARISON: None TECHNIQUE: AP pelvis and 2 views right hip. FINDINGS: AP PELVIS: There is a total right hip prosthesis. The left hip joint space is maintained. SI joints are symmetrical and normal. There is mild osteopenia. AP and frog-leg views right hip reveal right hip prosthesis in good alignment. There is no periprosthetic fracture seen. There is no periprosthetic loosening. The soft tissues are normal. XR/XR hip RT w PEL1V IMPRESSION: Total right hip prosthesis in satisfactory alignment. There is no periprosthetic fracture or loosening seen on this exam. The left hip joint and rest of the pelvis is unremarkable. There is mild osteopenia.
== END 2021-11-28 07:46 | disposition home or self-care (01) ==
LOC: HO.HOSX 07:45
PROVIDERS: Visit Provider Physician Assistant
DX: Z96.641 Presence of right artificial hip joint (principal); B95.2 Enterococcus as the cause of diseases classified elsewhere
CPT/HCPCS: 73502; 99212

== ENCOUNTER 2021-11-28 10:26 | Outpatient (REF) | payer MEDICARE, MEDICAID, SELFPAY ==
[2021-11-28 10:42] LABS: MANUAL DIFF FLAG NO
[2021-11-28 11:04] LABS: Basophils Percent Auto 0.4 % (0-2); Eosinophils Absolute Auto 0.1 X10*3/uL (0.0-0.4); Eosinophils Percent Auto 1.5 % (0-4); Hematocrit 40.5 % (37.0-47.0); Hemoglobin 12.6 g/dl (12.0-16.0); Imm Gran Abs Auto 0.01 X10*3/uL (0.00-0.03); Imm Gran Pct Auto 0.2 % (0.0-0.4); Lymphocytes Absolute Auto 1.5 X10*3/uL (1.2-4.9); Lymphocytes Percent Auto 28.2 % (20-40); Mean Corpuscular HGB Conc 31.1 g/dl (31.0-35.0); Mean Corpuscular Hemoglobin 30.2 pg (27.0-33.0); Mean Corpuscular Volume 97.1 fL (80.0-98.0); Mean Platelet Volume 8.8 fL (9.4-12.3); Monocytes Absolute Auto 0.5 X10*3/uL (0.1-1.2); Monocytes Percent Auto 9.4 % (2-11); Neutrophils Absolute Auto 3.2 x10*3/uL (2.0-8.3); Neutrophils Percent Auto 60.3 % (45-73); Platelet Count 265 X10*3/uL (160-400); Red Blood Count 4.17 X10*6/uL (4.20-5.50); Red Cell Distribution Width 13.3 % (11.0-16.0); White Blood Count 5.2 X10*3/uL (4.8-10.8)
[2021-11-28 11:45] LABS: Erythrocyte Sedimentation Rate 23 MM/HR (0-20)
[2021-12-01 14:32] LABS: CRP High Sensitivity >10.0 mg/L
== END 2021-11-28 10:27 | disposition home or self-care (01) ==
LOC: HO.LAB 10:26
PROVIDERS: PCP Internal Medicine; Visit Provider Physician Assistant
DX: Z96.649 Presence of unspecified artificial hip joint (principal); B95.2 Enterococcus as the cause of diseases classified elsewhere
CPT/HCPCS: 36415; 85025; 85652; 86141

== ENCOUNTER → 2021-12-02 09:19 | Outpatient (BNVA) | payer MEDICARE, MEDICAID, SELFPAY | PROVIDERS: PCP Internal Medicine; Visit Provider Physician Assistant | DX: Z96.649 Presence of unspecified artificial hip joint (principal); B95.2 Enterococcus as the cause of diseases classified elsewhere | CPT/HCPCS: 99212 ==

== ENCOUNTER → 2021-12-08 08:48 | Outpatient (BNVA) | payer MEDICARE, MEDICAID, SELFPAY | PROVIDERS: PCP Internal Medicine; Visit Provider Orthopaedic Surgery | DX: Z96.649 Presence of unspecified artificial hip joint (principal); S71.001A Unspecified open wound, right hip, initial encounter; S71.101A Unspecified open wound, right thigh, initial encounter | CPT/HCPCS: 99212 ==

== ENCOUNTER 2021-12-24 07:40 | Day surgery (SDC) | payer MEDICARE, MEDICAID, SELFPAY ==
--- NOTE | 2021-12-23 11:55 | P.CONAN_ITS ---
Documented by User: Rosario Ramirez NP 12/23/21 11:56 HPI - Anesthesia Eval Consult details Narrative: 76yo F for Right Debridement Soft Tissue of hip PMFSH Active Problems Active Problems: All Active Problems (Updated 12/08/21 @ 16:34 by Kishor Roldan MD) Open wound of right hip and thigh (Acute) Traumatic seroma of right thigh (Acute) Postprocedural seroma of skin and subcutaneous tissue following other procedure (Acute) History of total hip arthroplasty (Acute) Enterococcus faecalis infection (Acute) Abscess (Acute) Hip pain, right (Acute) Family history of colon cancer (Acute) S/P gastric bypass (Acute) Colon cancer screening (Acute) Encounter for general adult medical examination with abnormal findings (Acute) Obesity (Acute) Pre-op evaluation (Acute) Morbid obesity due to excess calories (Acute) Hip pain, right (Acute) Nail fungus (Acute) Chronic GERD (Acute) Depression, major, recurrent (Acute) Hypertension, essential (Acute) Past Medical History Medical History Chronic GERD Depression, major, recurrent Hip pain, right Hypertension, essential Nail fungus Family History Family History Father No problems noted. Mother Alzheimer's disease Maternal Grandmother Cancer Maternal Grandfather No problems noted. Paternal Grandfather No problems noted. Paternal Grandmother No problems noted. Maternal Aunt Cancer Sister Colon cancer Son No problems noted. Daughter No problems noted. Family history of problems with anesthesia: No Surgical History Surgical History History of bilateral tubal ligation History of cataract extraction History of tonsillectomy History of total hip arthroplasty History of Problems with Anesthesia: No Social History Social History Housing: Other (mobile home) Housing Other:: Mobile Home Are you a primary director of home care hospice to a significant other at home: No Do you presently have visiting nurse or other home services: No Alcohol intake: never Patient Tobacco Use Status: Former Tobacco user Quit Date: 10 yrs ago Tobacco use type: Cigarette Years Smoked: 40 years Current occupational status: retired and other Current occupation: right handed Cognitive needs: No Hearing needs: No Vision needs: No Meds Allergies Allergy/AdvReac Type Severity Reaction Status Date / Time sucralfate [Carafate] Allergy Unknown hives Verified 11/28/21 09:40 Home Medications Medication Instructions Recorded Confirmed Last Taken Type aripiprazole 10 mg tablet (Abilify) 10 mg PO DAILY 04/02/20 11/21/21 01/20/21 History ascorbic acid (vitamin C) 1,000 mg 2 g PO DAILY 04/02/20 11/21/21 Unknown History tablet bupropion HCl 300 mg 24 hr tablet, 300 mg PO QAM 04/02/20 11/21/21 01/20/21 History extended release (Wellbutrin XL) calcium [calcium citrate] PO DAILY 04/02/20 11/21/21 Unknown History cholecalciferol (vitamin D3) 50 50 mcg PO DAILY 04/02/20 11/21/21 Unknown History mcg (2,000 unit) capsule ferrous sulfate 325 mg (65 mg 325 mg PO DAILY 04/02/20 11/21/21 Unknown History iron) tablet (Feosol) multivitamin (Daily Multi-Vitamin 1 tab PO DAILY 04/02/20 11/21/21 Unknown History tablet) primidone 50 mg tablet 50 mg PO BEDTIME 04/02/20 11/21/21 Unknown History escitalopram oxalate 20 mg tablet 20 mg PO DAILY 07/30/20 11/21/21 01/20/21 History (Lexapro) bupropion HCl 150 mg 24 hr tablet, 150 mg PO QAM 08/06/21 11/21/21 Unknown History extended release metformin 500 mg tablet 500 mg PO DAILY 08/06/21 11/21/21 Unknown History propranolol 60 mg capsule,24 60 mg PO DAILY 09/19/21 11/21/21 Unknown History hr,extended release hydroxyzine HCl 25 mg tablet 25 mg PO BID 11/14/21 11/21/21 Unknown History Exam Exam Date and Time: December 23, 2021 1155 Pertinent Lab Results Pertinent Lab Results: Laboratory Tests 09/15/21 10/21/21 11/28/21 06:53 11:48 10:39 WBC 5.2 Hgb 12.6 Hct 40.5 Plt Count 265 Sodium 140 Potassium 3.6 Chloride 98 Carbon Dioxide 30 H BUN 26 H Creatinine 0.81 Assessment and Plan Assessment Anesthesia Assessment: Chart Reviewed Final Anesthetic Review Family History of Problems with Anesthesia: No History of Problems with Anesthesia: No Documented by User: Kishor Palomo MD 12/24/21 15:54 [facility] Past Medical History Medical History Chronic GERD Depression, major, recurrent Hip pain, right Hypertension, essential Nail fungus Functional capacity: independent ambulation Family History Family History Father No problems noted. Mother Alzheimer's disease Maternal Grandmother Cancer Maternal Grandfather No problems noted. Paternal Grandfather No problems noted. Paternal Grandmother No problems noted. Maternal Aunt Cancer Sister Colon cancer Son No problems noted. Daughter No problems noted. Surgical History Surgical History History of bilateral tubal ligation History of cataract extraction History of tonsillectomy History of total hip arthroplasty Social History Social History Housing: Other (mobile home) Housing Other:: Mobile Home Are you a primary director of home care hospice to a significant other at home: No Do you presently have visiting nurse or other home services: No Alcohol intake: never Patient Tobacco Use Status: Former Tobacco user Quit Date: 10 yrs ago Tobacco use type: Cigarette Years Smoked: 40 years Current occupational status: retired and other Current occupation: right handed Cognitive needs: No Hearing needs: No Vision needs: No Meds Allergies Allergy/AdvReac Type Severity Reaction Status Date / Time sucralfate [Carafate] Allergy Unknown hives Verified 11/28/21 09:40 Home Medications Medication Instructions Recorded Confirmed Last Taken Type aripiprazole 10 mg tablet (Abilify) 10 mg PO DAILY 04/02/20 11/21/21 01/20/21 History ascorbic acid (vitamin C) 1,000 mg 2 g PO DAILY 04/02/20 11/21/21 Unknown History tablet bupropion HCl 300 mg 24 hr tablet, 300 mg PO QAM 04/02/20 11/21/21 01/20/21 History extended release (Wellbutrin XL) calcium [calcium citrate] PO DAILY 04/02/20 11/21/21 Unknown History cholecalciferol (vitamin D3) 50 50 mcg PO DAILY 04/02/20 11/21/21 Unknown History mcg (2,000 unit) capsule ferrous sulfate 325 mg (65 mg 325 mg PO DAILY 04/02/20 11/21/21 Unknown History iron) tablet (Feosol) multivitamin (Daily Multi-Vitamin 1 tab PO DAILY 04/02/20 11/21/21 Unknown History tablet) primidone 50 mg tablet 50 mg PO BEDTIME 04/02/20 11/21/21 Unknown History escitalopram oxalate 20 mg tablet 20 mg PO DAILY 07/30/20 11/21/21 01/20/21 History (Lexapro) bupropion HCl 150 mg 24 hr tablet, 150 mg PO QAM 08/06/21 11/21/21 Unknown History extended release metformin 500 mg tablet 500 mg PO DAILY 08/06/21 11/21/21 Unknown History propranolol 60 mg capsule,24 60 mg PO DAILY 09/19/21 11/21/21 Unknown History hr,extended release hydroxyzine HCl 25 mg tablet 25 mg PO BID 11/14/21 11/21/21 Unknown History Exam Airway Mallampati Class: III TM Dist: >3cm Neck ROM: Full Loose/Missing/Broken Teeth: Yes Heart: S1,S2 Lungs: distant breath sounds Assessment and Plan Assessment Anesthesia Assessment: Anesthesia Plan Discussed Final Anesthetic Review NPO: Yes ASA Class: III Final Preanesthetic Review: Meds/Allgs Chart Reviewed, Consent Obtained/Reviewed and Anes Risks/Benef Reviewed Patient Risk: Intermediate Procedure Risk: Intermediate Anesthetic Plan Anesthetic Plan: GA Disposition: Standard PACU
[2021-12-24] VITALS (8 sets, daily range): BP systolic 101–149; BP diastolic 36–79; PULSE 49–63; RESP 16–19; TEMP 36.2–36.8; O2SAT 97–100; BMI 45.1
[2021-12-24] MEDS: Lactated Ringers 1,000 ML 100 ML IVCONT (08:16)
--- NOTE | 2021-12-24 09:33 | MHC.SHP ---
Pre-Procedural Eval Section A Date of Service: 12/24/21 The patient is an INPATIENT: No Changes since office visit: Yes Patient answered all questions; No Cold of Flu in the past 2 weeks, No New Medical Problems and No Changes in Medication The History & Physical has been completed within 30 days and I have reviewed it.: Yes Section B Chief Complaint: Unspecified open wound, right hip, initial encount Allergies: Allergies Allergy/AdvReac Type Severity Reaction Status Date / Time sucralfate [Carafate] Allergy Unknown hives Verified 11/28/21 09:40 Plan I have reviewed the history and physical and performed a pertinent physical examination on my patient. No changes have occurred unless specified.
--- NOTE | 2021-12-24 11:20 | PM.OP ---
Brief Operative Note Date of Service: 12/24/21 Pre-op diagnosis: right hip seroma Post-op diagnosis: same Procedure: Right hip seroma excision Implants: none Surgeon: Kishor Roldan MD Anesthesia: GETA and local Was an Welder Setter Resistance Machine used for this Procedure?: Yes Welder Setter Resistance Machine: Candelaria Mcintosh Estimated blood loss (mL): 100 IV fluids (mL): 1,000 Pathology: other Condition: stable Disposition: PACU
--- NOTE | 2021-12-30 09:40 | P.OP_ITS ---
Operative Note Operative Note Date of Service: 12/24/21 Narrative: Date of Service: 12/24/21 Pre-op diagnosis: right hip seroma Post-op diagnosis: same Procedure: Right hip seroma excision Implants: none Surgeon: Kishor Roldan MD Anesthesia: GETA and local Was an Outside Repairer Special used for this Procedure?: Yes Outside Repairer Special: Candelaria Mcintosh Estimated blood loss (mL): 100 IV fluids (mL): 1,000 Pathology: other Condition: stable Disposition: PACU Procedure in detail: Patient was brought to the operating room and placed in the left lateral position on the surgical table. She was prepped and draped in standard sterile fashion and a time out was called to identify proper site, proper procedure and IV antibiotics per weight were administered. I began by incising the sinus tract proximally and distally for a total inc length of 3-4 cm. I explored the sinus tract. There was necrotic fat expressed and it tracked posterior to the greater trochanter. The tensor fascia was intact. There was no joint fluid. There was no penetration into the joint. It did, however, track into the deep posterior c ompartment of the gluteus. I irrigated with 6 liters of saline. In the skin, superficial to the trochanter, I debrided with cautery and a sharp knife. I removed the skin superficially around the sinus tract. Once I was satisfied with the extent of debridement I closed the subcutaneous fat with absorbable suture and the skin with nylon. There was no evidence of infection and there was no evidence of joint involvement. Patient was placed in sterile dressing and extubated and brought to the recovery room in stable condition.
== END 2021-12-24 13:53 | disposition home or self-care (01) ==
PROVIDERS: PCP Internal Medicine; Visit Provider Orthopaedic Surgery
PROC: (CPT 11043; principal; 2021-12-24 09:30)
DX: S71.001A Unspecified open wound, right hip, initial encounter (principal); S71.101A Unspecified open wound, right thigh, initial encounter; L76.34 Postprocedural seroma of skin and subcutaneous tissue following other procedure; Y83.8 Other surgical procedures as the cause of abnormal reaction of the patient, or of later complication, without mention of misadventure at the time of the procedure; Y92.9 Unspecified place or not applicable; M25.551 Pain in right hip; Z96.641 Presence of right artificial hip joint; I10 Essential (primary) hypertension; K21.9 Gastro-esophageal reflux disease without esophagitis; F33.9 Major depressive disorder, recurrent, unspecified; Z79.899 Other long term (current) drug therapy; Z88.8 Allergy status to other drugs, medicaments and biological substances; Z87.891 Personal history of nicotine dependence; Z98.84 Bariatric surgery status
CPT/HCPCS: 11043; 87071; 87205; J0690; J2250; J2405; J2795; J3010

== ENCOUNTER → 2022-01-01 09:47 | Outpatient (BNVA) | payer MEDICARE, MEDICAID, SELFPAY | PROVIDERS: PCP Internal Medicine; Visit Provider Physician Assistant | DX: T81.30XA Disruption of wound, unspecified, initial encounter (principal); S71.001D Unspecified open wound, right hip, subsequent encounter; S71.101D Unspecified open wound, right thigh, subsequent encounter; Z96.641 Presence of right artificial hip joint | CPT/HCPCS: 12020; 99212 ==

== ENCOUNTER 2022-01-28 07:54 | Outpatient (RCR) | payer MEDICARE, SELFPAY | END 2022-02-05 11:10 | disposition home or self-care (01) | LOC: HO.WCC 07:54 | PROVIDERS: PCP Internal Medicine; Visit Provider Physician Assistant | DX: Z09 Encounter for follow-up examination after completed treatment for conditions other than malignant neoplasm (principal); Z96.641 Presence of right artificial hip joint; Z87.891 Personal history of nicotine dependence; Z87.2 Personal history of diseases of the skin and subcutaneous tissue | CPT/HCPCS: 99212 ==

== ENCOUNTER → 2022-02-12 08:48 | Outpatient (BNVA) | payer MEDICARE, SELFPAY | PROVIDERS: PCP Internal Medicine; Visit Provider Physician Assistant | DX: Z48.817 Encounter for surgical aftercare following surgery on the skin and subcutaneous tissue (principal); S71.001D Unspecified open wound, right hip, subsequent encounter; S71.101D Unspecified open wound, right thigh, subsequent encounter; Z96.649 Presence of unspecified artificial hip joint | CPT/HCPCS: 99212 ==

== ENCOUNTER 2022-03-24 07:16 | Outpatient (REF) | payer MEDICARE, SELFPAY ==
--- NOTE | ~2022-03-24 | MM_ITS ---
EXAMINATION: MM SCREENING DIGITAL BREAST TOMOSYNTHESIS, BILATERAL CLINICAL INFORMATION: Screening. Asymptomatic. COMPARISON: Mammography: 03/14/2021, 03/12/2020, 03/07/2019 TECHNIQUE: Digital breast tomosynthesis is performed in both the craniocaudal and mediolateral oblique views along with computer-aided detection (CAD). Synthesized 2D images are generated from the tomosynthesis. Additional right cleavage view is provided. FINDINGS: There are scattered areas of fibroglandular density (ACR BI-RADS breast composition Category b). Parenchymal pattern borders on predominantly fatty. Background stromal and fibroglandular densities are stable. There is no interval mass or developing density or architectural abnormality. No abnormal calcifications. Biopsy clip marker again seen mid central left breast. There are stable loosely grouped calcifications anterior upper outer left breast. The axilla are unremarkable. No significant changes. MM/MM tomosynthesis screening BI IMPRESSION: No mammographic evidence of malignancy. ASSESSMENT: BI-RADS 2: Benign RECOMMENDATION: Routine annual mammography screening. This patient's information was entered into a reminder system with a target due date for their next mammogram.
== END 2022-03-24 07:17 | disposition home or self-care (01) ==
LOC: HO.MAMMO 07:16
PROVIDERS: PCP Internal Medicine; Visit Provider Internal Medicine
DX: Z12.31 Encounter for screening mammogram for malignant neoplasm of breast (principal)
CPT/HCPCS: 77063; 77067

== ENCOUNTER → 2022-03-31 11:19 | Outpatient (BNVA) | payer MEDICARE, MEDICAID, SELFPAY | PROVIDERS: PCP Internal Medicine; Visit Provider Surgery Vascular Surgery | DX: I83.11 Varicose veins of right lower extremity with inflammation (principal) | CPT/HCPCS: 99202 ==

== ENCOUNTER 2022-05-02 01:47 | Emergency (ER) | payer MEDICARE, MEDICAID, SELFPAY ==
--- NOTE | 2022-05-02 | ECG_ITS ---
Test Reason : SOB Blood Pressure : / mmHG Vent. Rate : 085 BPM Atrial Rate : 085 BPM P-R Int : 156 ms QRS Dur : 124 ms QT Int : 360 ms P-R-T Axes : 052 095 020 degrees QTc Int : 428 ms Sinus rhythm with Premature atrial complexes Right bundle branch block Abnormal ECG When compared with ECG of 23-JUL-2017 08:01, Premature atrial complexes are now Present Right bundle branch block is now Present Referred By: Generic ED Physician Electronically Signed By:Eric Flores
[2022-05-02 01:53] VITALS: BP 152/55; PULSE 85; RESP 16; TEMP 36.7; O2SAT 95; BMI 51.7
[2022-05-02 02:00] VITALS: BP 149/81; PULSE 86; RESP 24; O2SAT 92
--- NOTE | 2022-05-02 02:07 | ED.SOB ---
HPI - SOB/Dyspnea General Chief Complaint: Dyspnea Stated Complaint: Sob Time Seen by Provider: 05/02/22 02:06 Source: patient Mode of arrival: ambulatory History of Present Illness HPI Narrative: Patient with no significant lung condition obese patient has been sick for last 5 days coughing mostly dry no fever wheezing on arrival saturating 91% at room air no fever no chills no other family member sick nasal congested. No chest pain or palpitation patient has chronic leg edema Related Data Home Medications Medication Instructions Recorded Confirmed aripiprazole 10 mg tablet (Abilify) 10 mg PO DAILY 04/02/20 01/28/22 ascorbic acid (vitamin C) 1,000 mg 2 g PO DAILY 04/02/20 01/28/22 tablet bupropion HCl 300 mg 24 hr tablet, 300 mg PO QAM 04/02/20 01/28/22 extended release (Wellbutrin XL) calcium [calcium citrate] PO DAILY 04/02/20 01/28/22 cholecalciferol (vitamin D3) 50 50 mcg PO DAILY 04/02/20 01/28/22 mcg (2,000 unit) capsule ferrous sulfate 325 mg (65 mg 325 mg PO DAILY 04/02/20 01/28/22 iron) tablet (Feosol) multivitamin (Daily Multi-Vitamin 1 tab PO DAILY 04/02/20 01/28/22 tablet) primidone 50 mg tablet 50 mg PO BEDTIME 04/02/20 01/28/22 escitalopram oxalate 20 mg tablet 20 mg PO DAILY 07/30/20 01/28/22 (Lexapro) bupropion HCl 150 mg 24 hr tablet, 150 mg PO QAM 08/06/21 01/28/22 extended release metformin 500 mg tablet 500 mg PO DAILY 08/06/21 01/28/22 propranolol 60 mg capsule,24 60 mg PO DAILY 09/19/21 01/28/22 hr,extended release hydroxyzine HCl 25 mg tablet 25 mg PO BID 11/14/21 01/28/22 Previous Rx's Medication Instructions Recorded pantoprazole 40 mg tablet,delayed 40 mg PO DAILY 90 days #90 tabs 10/20/21 release moxifloxacin 400 mg tablet 400 mg PO DAILY 7 days #7 tabs 10/21/21 hydrochlorothiazide 25 mg tablet 25 mg PO DAILY 90 days #90 tabs 10/27/21 albuterol sulfate 90 mcg/actuation 2 puff inhalation Q4-6H PRN 05/02/22 aerosol inhaler (ProAir HFA) shortness of breath or wheezing #8.5 grams codeine 10 mg-guaifenesin 100 mg/5 10 ml PO Q6H PRN cough #237 mL 05/02/22 mL oral liquid prednisone 20 mg tablet 40 mg PO DAILY #10 tabs 05/02/22 Allergies Allergy/AdvReac Type Severity Reaction Status Date / Time sucralfate [Carafate] Allergy Unknown hives Verified 03/31/22 11:26 Review of Systems Review of Systems: Yes all other systems are reviewed and are negative PMFSH Past Medical History Medical History Chronic GERD Depression, major, recurrent Hip pain, right Hypertension, essential Nail fungus Surgical History History of bilateral tubal ligation History of cataract extraction History of tonsillectomy History of total hip arthroplasty S/P gastric bypass Family History Family History Father No problems noted. Mother Alzheimer's disease Maternal Grandmother Cancer Maternal Grandfather No problems noted. Paternal Grandfather No problems noted. Paternal Grandmother No problems noted. Maternal Aunt Cancer Sister Colon cancer Son No problems noted. Daughter No problems noted. Social History Social History Housing: Other (mobile home) Housing Other:: Mobile Home Are you a primary director of career resources to a significant other at home: No Do you presently have visiting nurse or other home services: No Alcohol intake: never Patient Tobacco Use Status: Former Tobacco user Quit Date: 10 yrs ago Tobacco use type: Cigarette Years Smoked: 40 years Smoked in Last 30 Days: No e-Cigarette/Vaping Use: Never Used Use of substances other than those prescribed or required for medical reasons: No Advance Directives: No Advance Directives Information Provided: No Current occupational status: retired and other Current occupation: right handed Cognitive needs: No Hearing needs: No Vision needs: No Physical Exam Vital Signs: Vital Signs: Last Vital Signs Temp 99.0 F 05/02/22 04:00 Pulse 99 05/02/22 04:00 Resp 20 05/02/22 04:00 BP 151/83 H 05/02/22 04:00 Pulse Ox 91 L 05/02/22 04:00 O2 Del Method 05/02/22 04:00 BMI result Body Mass Index 51.7 Appearance: Alert. Oriented X3. Frequent cough obese Eyes: PERRLA, No Nystagmus ENT: Pharynx normal. Oral Mucosa moist Neck: Normal inspection. Neck supple. CVS: Normal heart rate and rhythm. Pulses normal. Respiratory: No respiratory distress. Equal air entry bilateral, prolonged expiration with rhonchi no rales Abdomen: Soft and nontender. Bowel sounds are present, no mass palpable, no CVA tenderness Skin: Skin warm and dry. Normal skin color. Normal skin turgor. Extremities: 3+ lower extremity edema. No calf tenderness Neuro: Oriented X 3. No motor deficit. No sensory deficit.No cerebellar signs , cranial nerves II-XII intact Medications Administered Discontinued Medications Generic Name Dose Route Start Last Admin Trade Name Freq PRN Reason Stop Dose Admin Albuterol Sulfate 2.5 mg/ 0 mg 05/02/22 02:15 05/02/22 02:23 Albuterol/Ipratropium 3 ml INHALE 05/02/22 02:16 1 each ONCE ONE Administration Methylprednisolone Sodium Succinate 125 mg 05/02/22 02:17 05/02/22 02:22 Methylprednisolone Sod Succ 125 Mg/2 Ml Vial IVPUSH 05/02/22 02:18 125 mg ONCE ONE Administration Medical Decision Making Medical Decision Making [facility] Narrative: Patient influenza a with bronchitis feeling much better after nebulizing treatment saturating 92% at room air will discharge patient home on albuterol prednisone and cough syrup Lab Data [facility] Lab Attestation statement: I reviewed the patient's lab results. Result Diagrams: 05/02/22 02:22 05/02/22 02:14 Labs: Lab Results 05/02/22 05/02/22 05/02/22 Range/Units 02:14 02:14 02:21 WBC (4.8-10.8) X10*3/uL RBC (4.20-5.50) X10*6/uL Hgb (12.0-16.0) g/dl Hct (37.0-47.0) % MCV (80.0-98.0) fL MCH (27.0-33.0) pg MCHC (31.0-35.0) g/dl RDW (11.0-16.0) % Plt Count (160-400) X10*3/uL MPV (9.4-12.3) fL Immature Gran % (Auto) (0.0-0.4) % Neut % (Auto) (45-73) % Lymph % (Auto) (20-40) % [place] % (Auto) (2-11) % Eos % (Auto) (0-4) % Baso % (Auto) (0-2) % Lymph # (Auto) (1.2-4.9) X10*3/uL [place] # (Auto) (0.1-1.2) X10*3/uL Eos # (Auto) (0.0-0.4) X10*3/uL Baso # (Auto) (0.0-0.2) X10*3/uL Abs Immat Gran (auto) (0.00-0.03) X10*3/uL Absolute Neuts (auto) (2.0-8.3) x10*3/uL Absolute Nucleated RBC (0.0-0.012) X10*3/uL Nucleated RBC % (auto) (0.0-0.2) /100WBC Sodium 142 (135-145) mmol/L Potassium 4.1 (3.3-5.1) mmol/L Chloride 102 (96-108) mmol/L Carbon Dioxide 32 H (22-29) mmol/L Anion Gap 12 (12-20) BUN 18 H (9-16) mg/dL Creatinine 0.78 (0.5-1.4) mg/dL Estim Creat Clear Calc 74.1 Estimated GFR > 60 Random Glucose 104 (60-115) mg/dL Calcium 8.8 D (8.4-10.2) mg/dL Total Bilirubin 0.5 (0.0-1.0) mg/dL AST 26 (5-31) U/L ALT 20 (0-31) U/L Alkaline Phosphatase 115 (39-117) U/L Troponin I High Sens 5.3 (<3.5-17.0) ng/L B-Natriuretic Peptide (<100) pg/mL Total Protein 6.8 (6.5-8.0) g/dL Albumin 4.1 (3.5-5.0) g/dL Influenza Type A (PCR) POSITIVE A (Negative) Influenza Type B (PCR) NEGATIVE (Negative) RSV RNA Qual (PCR) NEGATIVE (Negative) SARS-CoV-2 RNA (RT-PCR) NEGATIVE (Negative) 05/02/22 05/02/22 Range/Units 02:22 02:22 WBC 7.6 (4.8-10.8) X10*3/uL RBC 4.26 (4.20-5.50) X10*6/uL Hgb 12.6 (12.0-16.0) g/dl Hct 40.6 (37.0-47.0) % MCV 95.3 (80.0-98.0) fL MCH 29.6 (27.0-33.0) pg MCHC 31.0 (31.0-35.0) g/dl RDW 13.7 (11.0-16.0) % Plt Count 235 (160-400) X10*3/uL MPV 8.2 L (9.4-12.3) fL Immature Gran % (Auto) 0.4 (0.0-0.4) % Neut % (Auto) 81.4 H (45-73) % Lymph % (Auto) 12.1 L (20-40) % [place] % (Auto) 5.6 (2-11) % Eos % (Auto) 0.4 (0-4) % Baso % (Auto) 0.1 (0-2) % Lymph # (Auto) 0.9 L (1.2-4.9) X10*3/uL [place] # (Auto) 0.4 (0.1-1.2) X10*3/uL Eos # (Auto) 0.0 (0.0-0.4) X10*3/uL Baso # (Auto) 0.0 (0.0-0.2) X10*3/uL Abs Immat Gran (auto) 0.03 (0.00-0.03) X10*3/uL Absolute Neuts (auto) 6.2 (2.0-8.3) x10*3/uL Absolute Nucleated RBC 0.000 (0.0-0.012) X10*3/uL Nucleated RBC % (auto) 0.0 (0.0-0.2) /100WBC Sodium (135-145) mmol/L Potassium (3.3-5.1) mmol/L Chloride (96-108) mmol/L Carbon Dioxide (22-29) mmol/L Anion Gap (12-20) BUN (9-16) mg/dL Creatinine (0.5-1.4) mg/dL Estim Creat Clear Calc Estimated GFR Random Glucose (60-115) mg/dL Calcium (8.4-10.2) mg/dL Total Bilirubin (0.0-1.0) mg/dL AST (5-31) U/L ALT (0-31) U/L Alkaline Phosphatase (39-117) U/L Troponin I High Sens (<3.5-17.0) ng/L B-Natriuretic Peptide 89 (<100) pg/mL Total Protein (6.5-8.0) g/dL Albumin (3.5-5.0) g/dL Influenza Type A (PCR) (Negative) Influenza Type B (PCR) (Negative) RSV RNA Qual (PCR) (Negative) SARS-CoV-2 RNA (RT-PCR) (Negative) Discharge Plan Discharge Clinical Impression: Influenza A, Acute bronchitis Patient Disposition: Home, Self-Care Instructions: Influenza (ED), Acute Bronchitis (ED) Additional Instructions: Social distancing advise Inhaler and prednisone as prescribed Cough syrup as prescribed Follow-up with PCP if not better Prescriptions: New codeine-guaifenesin 10-100 mg/5 mL liquid 10 ml PO Q6H PRN (Reason: cough) Qty: 237 0RF prednisone 20 mg tablet 40 mg PO DAILY Qty: 10 0RF albuterol sulfate [ProAir HFA] 90 mcg/actuation HFA aerosol inhaler 2 puff inhalation Q4-6H PRN (Reason: shortness of breath or wheezing) Qty: 8.5 0RF No Action pantoprazole 40 mg tablet,delayed release (DR/EC) 40 mg PO DAILY 90 Days Qty: 90 1RF hydrochlorothiazide 25 mg tablet 25 mg PO DAILY 90 Days Qty: 90 1RF escitalopram oxalate [Lexapro] 20 mg tablet 20 mg PO DAILY bupropion HCl [Wellbutrin XL] 300 mg tablet extended release 24 hr 300 mg PO QAM aripiprazole [Abilify] 10 mg tablet 10 mg PO DAILY ascorbic acid (vitamin C) 1,000 mg tablet 2 g PO DAILY cholecalciferol (vitamin D3) 50 mcg (2,000 unit) capsule 50 mcg PO DAILY ferrous sulfate [Feosol] 325 mg (65 mg iron) tablet 325 mg PO DAILY calcium PO DAILY multivitamin [Daily Multi-Vitamin] Tablet 1 tab PO DAILY primidone 50 mg tablet 50 mg PO BEDTIME bupropion HCl 150 mg tablet extended release 24 hr 150 mg PO QAM metformin 500 mg tablet 500 mg PO DAILY moxifloxacin 400 mg tablet 400 mg PO DAILY 7 Days Qty: 7 0RF propranolol 60 mg capsule,extended release 24 hr 60 mg PO DAILY hydroxyzine HCl 25 mg tablet 25 mg PO BID
[2022-05-02 02:21] VITALS: PULSE 88; RESP 28; O2SAT 94
--- NOTE | 2022-05-02 02:25 | PC.NURSE ---
PT A&Ox4, reports increase SOB, non productive cough for five days now. Denies any pain. O2 sat 92% on RA, RR 24. LS wheezing. Respiratory at bedside. IV placed, meds given as documented, labs obtained and sent to lab.
[2022-05-02 02:26] LABS: MANUAL DIFF FLAG NO
[2022-05-02 02:27] LABS: Basophils Percent Auto 0.1 % (0-2); Eosinophils Percent Auto 0.4 % (0-4); Hematocrit 40.6 % (37.0-47.0); Hemoglobin 12.6 g/dl (12.0-16.0); Imm Gran Abs Auto 0.03 X10*3/uL (0.00-0.03); Imm Gran Pct Auto 0.4 % (0.0-0.4); Lymphocytes Absolute Auto 0.9 X10*3/uL (1.2-4.9); Lymphocytes Percent Auto 12.1 % (20-40); Mean Corpuscular Hemoglobin 29.6 pg (27.0-33.0); Mean Corpuscular Volume 95.3 fL (80.0-98.0); Mean Platelet Volume 8.2 fL (9.4-12.3); Monocytes Absolute Auto 0.4 X10*3/uL (0.1-1.2); Monocytes Percent Auto 5.6 % (2-11); Neutrophils Absolute Auto 6.2 x10*3/uL (2.0-8.3); Neutrophils Percent Auto 81.4 % (45-73); Platelet Count 235 X10*3/uL (160-400); Red Blood Count 4.26 X10*6/uL (4.20-5.50); Red Cell Distribution Width 13.7 % (11.0-16.0); White Blood Count 7.6 X10*3/uL (4.8-10.8)
[2022-05-02 02:37] LABS: Alanine Aminotransferase 20 U/L (0-31); Albumin Level 4.1 g/dL (3.5-5.0); Alkaline Phosphatase 115 U/L (39-117); Anion Gap 12 (12-20); Aspartate Amino Transferase 26 U/L (5-31); Bilirubin Total 0.5 mg/dL (0.0-1.0); Blood Urea Nitrogen 18 mg/dL (9-16); Calcium 8.8 mg/dL (8.4-10.2); Carbon Dioxide 32 mmol/L (22-29); Chloride 102 mmol/L (96-108); Creatinine Clr Calc Pharmacy 74.1; Estimated Glomerular Filt Rate > 60; Glucose Random 104 mg/dL (60-115); Potassium 4.1 mmol/L (3.3-5.1); Sodium 142 mmol/L (135-145); Total Protein 6.8 g/dL (6.5-8.0)
[2022-05-02 02:41] LABS: Troponin-I High Sensitivity 5.3 ng/L (<3.5-17.0)
[2022-05-02 02:47] LABS: B Type Natriuretic Peptide 89 pg/mL (<100)
[2022-05-02 03:06] LABS: Influenza A PCR POSITIVE (Negative); Influenza B PCR NEGATIVE (Negative); Resp Syncy Virus RNA Qual PCR NEGATIVE (Negative); SARS COV2 PCR INHOUSE NEGATIVE (Negative)
[2022-05-02 03:42] VITALS: PULSE 99; RESP 26; O2SAT 91
[2022-05-02 04:00] VITALS: BP 151/83; PULSE 99; RESP 20; TEMP 37.2; O2SAT 91
--- NOTE | 2022-05-02 04:12 | PC.NURSE ---
PT states she has a sore bottom, requested to sit at edge of stretcher with staff assist. PT states she wants to go home. Daughter at bedside.
== END 2022-05-02 04:48 | disposition home or self-care (01) ==
PROVIDERS: Emergency Provider Internal Medicine; PCP Internal Medicine
DX: J11.1 Influenza due to unidentified influenza virus with other respiratory manifestations (principal); J20.9 Acute bronchitis, unspecified; R06.02 Shortness of breath; R60.0 Localized edema; Z20.822 Contact with and (suspected) exposure to COVID-19; I10 Essential (primary) hypertension; Z79.84 Long term (current) use of oral hypoglycemic drugs; Z79.899 Other long term (current) drug therapy; Z87.891 Personal history of nicotine dependence
CPT/HCPCS: 0241U; 36415; 71045; 80053; 83880; 84484; 85025; 93005; 94640; 96374; 99284; 99285; J2930

== ENCOUNTER 2022-05-15 12:29 | Outpatient (REF) | payer MEDICARE, MEDICAID, SELFPAY ==
--- NOTE | ~2022-05-15 | US_ITS ---
EXAMINATION: US LOWER EXTREMITY VENOUS (REFLUX EXAM), BILATERAL CLINICAL INDICATION: Varicose vein COMPARISON: None. TECHNIQUE: Color flow triplex imaging and compression Doppler was performed to evaluate both the deep and the superficial systems bilaterally. To evaluate the superficial system, the examination was performed in the upright position. Color-flow Doppler ultrasound and compression ultrasound were utilized. In addition, maneuvers were utilized to demonstrate reflux. FINDINGS: 1. DEEP VENOUS ULTRASOUND OF THE RIGHT LOWER EXTREMITY: Common Femoral Vein: Compressible, normal respiratory variation and augmented flow. Femoral Vein: Compressible, normal color flow and augmentation. Popliteal Vein: Compressible, normal augmentation. Deep Reflux: There is no evidence of reflux in the deep system in either the common femoral vein or the popliteal vein. There is no evidence of a Rodríguez's cyst. 2. SUPERFICIAL ULTRASOUND WITH DOPPLER OF RIGHT LOWER EXTREMITY: GREAT SAPHENOUS VEIN: Saphenofemoral Junction: 0.6 cm; Reflux: 0 ms Proximal Thigh: 0.7 cm; Reflux: 0 ms Mid Thigh: 0.5 cm; Reflux: 0 ms Above Knee: 0.5 cm; Reflux: 0 ms At Knee: 0.5 cm; Reflux: 0 ms Below Knee: 0.4 cm; Reflux: 0 ms Mid Calf: 0.4 cm; Reflux: 736 ms Ankle: 0.4 cm; Reflux: 0 ms DUPLICATED MEDIAL GREAT SAPHENOUS VEIN: Diameter: None Imaged Reflux: NA DUPLICATED LATERAL GREAT SAPHENOUS VEIN: Diameter: None Imaged Reflux: NA SMALL SAPHENOUS VEIN: Proximal: 0.2 cm; Reflux: 0 ms Distal: 0.2 cm; Reflux: 0 ms VEIN OF GIACOMINI: None Imaged. PERFORATORS: Location: None Imaged Size: NA Reflux: NA VARICOSITIES: Location: None Imaged Size: NA Reflux: NA 3. DEEP VENOUS ULTRASOUND OF THE LEFT LOWER EXTREMITY: Common Femoral Vein: Compressible, normal respiratory variation and augmented flow. Femoral Vein: Compressible, normal color flow and augmentation. Popliteal Vein: Compressible, normal augmentation. Deep Reflux: There is no evidence of reflux in the deep system in either the common femoral vein or the popliteal vein. Incidental note is made of 5.2 cm complex fluid collection in the left popliteal fossa. 4. SUPERFICIAL ULTRASOUND WITH DOPPLER OF LEFT LOWER EXTREMITY: GREAT SAPHENOUS VEIN: Saphenofemoral Junction: 1.0 cm; Reflux: 0 ms Proximal Thigh: 0.5 cm; Reflux: 0 ms Mid Thigh: 0.4 cm; Reflux: 0 ms Above Knee: 0.4 cm; Reflux: 0 ms At Knee: 0.4 cm; Reflux: 0 ms Below Knee: 0.3 cm; Reflux: 0 ms Mid Calf: 0.3 cm; Reflux: 0 ms Ankle: 0.2 cm; Reflux: 0 ms DUPLICATED MEDIAL GREAT SAPHENOUS VEIN: Diameter: None Imaged Reflux: NA DUPLICATED LATERAL GREAT SAPHENOUS VEIN: Diameter: None Imaged Reflux: NA SMALL SAPHENOUS VEIN: Proximal: 0.4 cm; Reflux: 0 ms Distal: 0.3 cm; Reflux: 0 ms VEIN OF GIACOMINI: None Imaged. PERFORATORS: Location: None Imaged Size: NA Reflux: NA VARICOSITIES: Location: None Imaged Size: NA Reflux: NA US/US venous duplex LE BI IMPRESSION: 1. Right mid calf reflux. 2. No left lower extremity DVT. 3. No right small saphenous vein reflux. 4. Left popliteal fossa complex fluid collection.
== END 2022-05-15 12:30 | disposition home or self-care (01) ==
LOC: HO.US 12:29
PROVIDERS: PCP Internal Medicine; Visit Provider Surgery Vascular Surgery
DX: I83.11 Varicose veins of right lower extremity with inflammation (principal)
CPT/HCPCS: 93970

== ENCOUNTER → 2022-05-26 10:07 | Outpatient (BNVA) | payer MEDICARE, MEDICAID, SELFPAY | PROVIDERS: PCP Internal Medicine; Visit Provider Surgery Vascular Surgery | DX: I83.11 Varicose veins of right lower extremity with inflammation (principal); I89.0 Lymphedema, not elsewhere classified | CPT/HCPCS: 99212 ==

== ENCOUNTER → 2022-05-27 12:47 | Outpatient (REF) | payer MEDICARE, MEDICAID, SELFPAY ==
--- NOTE | 2022-05-27 12:51 | CA_ITS ---
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 Normal LV systolic function with grade 2 diastolic dysfunction 2. Moderate calcific aortic and moderate mitral and calcification noted with normal cardiac valvular Doppler 3. Upper limits of normal RV systolic pressure 4. No pericardial effusion Findings Left Ventricle Normal left ventricular size, thickness, and systolic function. The visually estimated ejection fraction is between 65-70%. Spectral Doppler is indicative of a pseudonormal filling pattern. E/E prime ratio is >15, consistent with elevated filling pressures. Evidence suggests grade II (moderate) diastolic dysfunction. Right Ventricle Normal right ventricular cavity size and systolic function. Atria The left atrium is likely dilated. Interatrial shunt cannot be excluded. The right atrium is normal in size. Aortic Valve There is moderate calcification of the aortic valve. There is mild thickening of the aortic valve. There is no aortic valve stenosis. There is no aortic valve regurgitation. Mitral Valve There is mild anterior and moderate posterior mitral leaflet thickening. There is moderate mitral annular calcification. There is trace mitral valve regurgitation. There is no mitral valve stenosis. Pulmonic Valve The pulmonic valve was not well visualized. Tricuspid Valve Likely normal tricuspid valve structure and function. There is mild tricuspid valve regurgitation. Normal right atrial pressure. There is no evidence of pulmonary hypertension. Great Vessels All visible segments of the aorta are normal in size. The pulmonary artery was not well visualized. Venous The inferior vena cava is normal in size and collapses greater than 50% with inspiration. Pericardium/Pleural There is no evidence of pericardial effusion. Prior Study Comparison No significant change compared to prior study dated: 09/19/2016. Measurements 2D Linear Measurements IVSd: 1.14 0.6-0.9/0.6-1.0 cm LVIDd: 4.48 3.9-5.3/4.2-5.9 cm LVIDd Index: 2.14 2.4-3.2/2.2-3.1 cm/m2 LVIDs: 2.86 2.0-3.6 cm LVPWd: 0.79 0.7-1.1 cm LA Diam: 4.20 2.7-3.8/3.0-4.0 cm LAIDs Index: 2.01 1.5-2.3 cm/m2 LV Mass: 180.53 67-162/88-224 g LV Mass Index: 86.38 43-95/49-115 g/m2 LVOT Diam: 2.10 3.0+(-)1.3 cm 2D Systolic Function EF 4C: 75.10 >55% EF 2C: 66.40 >55% EF BiP: 70.20 >55% Mitral Valve MV Pk E: 1.41 MV PK A: 0.98 MV Decel Time: 192.00 E/A: 1.40 E'Lateral: 8.49 E'Medial: 9.03 E/E' Med: 15.60 E/E' Lat: 16.60 PHT: 56.00 MVA PHT: 3.93 Decel [place]: 7.34 Aortic Valve AoV Pk Son: 1.78 AoV Mn Son: 1.23 AoV VTI: 0.38 AoV Pk Grad: 13.00 Aov Mn Grad: 7.00 KRISTOFER Cont.VTI: 2.77 LVOT LVOT Pk Son: 1.38 LVOT Mn Son: 0.94 LVOT VTI: 0.30 LVOT Pk Grad: 8.00 LVOT Mn Grad: 4.00 LVOT Diam: 2.10 LVOT Area: 3.46 Diastolic Function MV Pk E: 1.41 MV Pk A: 0.98 E/A: 1.40 E'Medial: 9.03 E/E' Med: 15.60 E' Laterial: 8.49 E/E' Lat: 16.60 Tricuspid Valve TR Pk Son: 2.86 TR Pk Grad: 33.00 RA Press: 3.00 RVSP: 36.00 Great Vessels Aorta Sinus of Valsalva: 3.20 2.0-3.5 cm Ao Asc: 3.60 2.1-3.4 cm Pulmonary Veins Pulm Vein S/D 1.20 Pulmonary Valve PV Pk Son: 0.83 Peak PV Grad: 3.00 Updated in Other Vendor System with Status of Final Edgar Payton MD electronically signed on 05/28/2022 9:08:47 AM with status of Final
== END ==
LOC: HO.CARD 12:47
PROVIDERS: PCP Internal Medicine; Visit Provider Internal Medicine
DX: I49.1 Atrial premature depolarization (principal); I45.10 Unspecified right bundle-branch block; I10 Essential (primary) hypertension
CPT/HCPCS: 93306

== ENCOUNTER 2022-06-08 12:51 | Emergency (ER) | payer MEDICARE, MEDICAID, SELFPAY ==
--- NOTE | 2022-06-08 13:59 | ED.SKABFB ---
HPI - Skin/Abscess/Foreign Bdy General Chief complaint: Extremity Problem <Maria Guadalupe Pisano NP - Last Filed: 06/08/22 14:02> Stated complaint: r leg infection <Maria Guadalupe Pisano NP - Last Filed: 06/08/22 14:02> Time Seen by Provider: 06/08/22 21:20 <Maria Guadalupe Pisano NP - Last Filed: 06/08/22 14:02> Source: patient <Royal Torres MD - Last Filed: 06/08/22 22:40> Mode of arrival: ambulatory <Royal Torres MD - Last Filed: 06/08/22 22:40> Limitations: no limitations <Royal Torres MD - Last Filed: 06/08/22 22:40> History of Present Illness HPI narrative: 76 yo female with history of COPD, lymphedema, HTN, GERD here with right leg swelling, pain, drainage x 3 weeks. Went to 3 days ago and started on cephalexin which she has been taking. Patient does have some slight swelling to the left leg but right is much more swollen and painful with drainage. Patient had a venous ultrasound on May 15 which was negative for DVT. Patient was seen by nurse today at home was cut to go to a hospital for further evaluation. Patient does have a scheduled with wound clinic next week no fever no chills according to patient her leg condition is same for long time but serous discharge is new <Royal Torres MD - Last Filed: 06/08/22 22:40> Related Data Home medications: Home Medications Medication Instructions Recorded Confirmed aripiprazole 10 mg tablet (Abilify) 10 mg PO DAILY 04/02/20 06/05/22 ascorbic acid (vitamin C) 1,000 mg 2 g PO DAILY 04/02/20 06/05/22 tablet bupropion HCl 300 mg 24 hr tablet, 300 mg PO QAM 04/02/20 06/05/22 extended release (Wellbutrin XL) calcium [calcium citrate] PO DAILY 04/02/20 06/05/22 cholecalciferol (vitamin D3) 50 50 mcg PO DAILY 04/02/20 06/05/22 mcg (2,000 unit) capsule ferrous sulfate 325 mg (65 mg 325 mg PO DAILY 04/02/20 06/05/22 iron) tablet (Feosol) multivitamin (Daily Multi-Vitamin 1 tab PO DAILY 04/02/20 06/05/22 tablet) primidone 50 mg tablet 50 mg PO BEDTIME 04/02/20 06/05/22 escitalopram oxalate 20 mg tablet 20 mg PO DAILY 07/30/20 06/05/22 (Lexapro) bupropion HCl 150 mg 24 hr tablet, 150 mg PO QAM 08/06/21 06/05/22 extended release metformin 500 mg tablet 500 mg PO DAILY 08/06/21 06/05/22 propranolol 60 mg capsule,24 60 mg PO DAILY 09/19/21 06/05/22 hr,extended release hydroxyzine HCl 25 mg tablet 25 mg PO BID 11/14/21 06/05/22 Previous Rx's Medication Instructions Recorded pantoprazole 40 mg tablet,delayed 40 mg PO DAILY 90 days #90 tabs 10/20/21 release furosemide 20 mg tablet (Lasix) 20 mg PO DAILY 10 days #10 tabs 06/02/22 cephalexin 500 mg capsule 500 mg PO TID #30 caps 06/05/22 doxycycline hyclate 100 mg tablet 100 mg PO BID #20 tabs 06/08/22 hydrochlorothiazide 25 mg tablet 25 mg PO DAILY 90 days #90 tabs 06/08/22 <Maria Guadalupe Pisano NP - Last Filed: 06/08/22 14:02> Allergies/Adverse reactions: Allergies Allergy/AdvReac Type Severity Reaction Status Date / Time sucralfate [Carafate] Allergy Unknown hives Verified 06/05/22 08:07 <Maria Guadalupe Pisano NP - Last Filed: 06/08/22 14:02> Review of Systems Review of Systems: Yes all other systems are reviewed and are negative <Royal Torres MD - Last Filed: 06/08/22 22:40> PMFSH Past Medical History Medical History: Medical History Chronic GERD Depression, major, recurrent Hip pain, right Hypertension, essential Nail fungus <Maria Guadalupe Pisano NP - Last Filed: 06/08/22 14:02> Surgical History: Surgical History History of bilateral tubal ligation History of cataract extraction History of tonsillectomy History of total hip arthroplasty S/P gastric bypass <Maria Guadalupe Pisano NP - Last Filed: 06/08/22 14:02> Family History Family History: Family History Father No problems noted. Mother Alzheimer's disease Maternal Grandmother Cancer Maternal Grandfather No problems noted. Paternal Grandfather No problems noted. Paternal Grandmother No problems noted. Maternal Aunt Cancer Sister Colon cancer Son No problems noted. Daughter No problems noted. <Maria Guadalupe Pisano NP - Last Filed: 06/08/22 14:02> Social History Social History: Social History Housing: Other Housing Other:: Mobile Home Are you a primary primary care nurse to a significant other at home: No Do you presently have visiting nurse or other home services: No Alcohol intake: never Patient Tobacco Use Status: Former Tobacco user Quit Date: 10 yrs ago Tobacco use type: Cigarette Years Smoked: 40 years Smoked in Last 30 Days: No e-Cigarette/Vaping Use: Currently Using Advance Directives: No Advance Directives Information Provided: Yes service: No Current occupational status: retired and other Current occupation: right handed Cognitive needs: No Hearing needs: No Vision needs: No <Maria Guadalupe Pisano NP - Last Filed: 06/08/22 14:02> Physical Exam Vital Signs: Vital Signs: Last Vital Signs Temp 98.2 F 06/08/22 22:31 Pulse 101 H 06/08/22 22:31 Resp 20 06/08/22 22:31 BP 151/70 H 06/08/22 22:31 Pulse Ox 96 06/08/22 22:31 O2 Del Method 06/08/22 22:31 BMI result Body Mass Index 54.3 <Maria Guadalupe Pisano NP - Last Filed: 06/08/22 14:02> Vital Signs: Last Vital Signs Temp 98.2 F 06/08/22 22:31 Pulse 101 H 06/08/22 22:31 Resp 20 06/08/22 22:31 BP 151/70 H 06/08/22 22:31 Pulse Ox 96 06/08/22 22:31 O2 Del Method 06/08/22 22:31 BMI result Body Mass Index 54.3 <Royal Torres MD - Last Filed: 06/08/22 22:40> Appearance: Alert. Oriented X3. No acute distress. ENT: Pharynx normal. Oral Mucosa moist Neck: Normal inspection. Neck supple. CVS: Normal heart rate and rhythm. Pulses normal. Respiratory: No respiratory distress. Equal air entry bilateral, no wheezing/rales/rhonchi Abdomen: Soft and nontender. Bowel sounds are present, no mass palpable, no CVA tenderness Skin: Skin warm and dry. Normal skin color. Normal skin turgor. Extremities: Nonpitting lymphedema with serous discharge No calf tenderness Neuro: Oriented X 3. No motor deficit. <Royal Torres MD - Last Filed: 06/08/22 22:40> Course Course Course Narrative: This is rapid medical exam. Deferred additional HPI, ROS, PE to primary provider. 76 yo female with history of COPD, lymphedema, HTN, GERD here with right leg swelling, pain, drainage x 3 weeks. Went to 3 days ago and started on cephalexin which she has been taking. Patient does have some slight swelling to the left leg but right is much more swollen and painful with drainage. Patient had a venous ultrasound on May 15 which was negative for DVT. Will need labs, covid screen. VSS <Maria Guadalupe Pisano NP - Last Filed: 06/08/22 14:02> Medical Decision Making Medical Decision Making [facility] Narrative: Patient with normal labs negative lactic acid level seems discharge no foul smelling need outpatient wound care patient has a scheduled visit with wound clinic this week. At this time there is no signs of significant increased infection will add doxycycline because of the serous discharge advised to follow with wound clinic <Royal Torres MD - Last Filed: 06/08/22 22:40> Lab Data [facility] Lab Attestation statement: I reviewed the patient's lab results. <Royal Torres MD - Last Filed: 06/08/22 22:40> Result Diagrams: 06/08/22 16:15 06/08/22 16:15 <Maria Guadalupe Pisano NP - Last Filed: 06/08/22 14:02> Labs: Lab Results 06/08/22 06/08/22 06/08/22 Range/Units 16:15 16:15 16:15 WBC 6.4 (4.8-10.8) X10*3/uL RBC 4.00 L (4.20-5.50) X10*6/uL Hgb 12.0 (12.0-16.0) g/dl Hct 39.1 (37.0-47.0) % MCV 97.8 (80.0-98.0) fL MCH 30.0 (27.0-33.0) pg MCHC 30.7 L (31.0-35.0) g/dl RDW 14.3 (11.0-16.0) % Plt Count 280 (160-400) X10*3/uL MPV 8.3 L (9.4-12.3) fL Immature Gran % (Auto) 0.3 (0.0-0.4) % Neut % (Auto) 70.1 (45-73) % Lymph % (Auto) 20.7 (20-40) % [place] % (Auto) 7.0 (2-11) % Eos % (Auto) 1.6 (0-4) % Baso % (Auto) 0.3 (0-2) % Lymph # (Auto) 1.3 (1.2-4.9) X10*3/uL [place] # (Auto) 0.5 (0.1-1.2) X10*3/uL Eos # (Auto) 0.1 (0.0-0.4) X10*3/uL Baso # (Auto) 0.0 (0.0-0.2) X10*3/uL Abs Immat Gran (auto) 0.02 (0.00-0.03) X10*3/uL Absolute Neuts (auto) 4.5 (2.0-8.3) x10*3/uL Absolute Nucleated RBC 0.000 (0.0-0.012) X10*3/uL Nucleated RBC % (auto) 0.0 (0.0-0.2) /100WBC Sodium 142 (135-145) mmol/L Potassium 4.2 (3.3-5.1) mmol/L Chloride 107 (96-108) mmol/L Carbon Dioxide 27 (22-29) mmol/L Anion Gap 12 (12-20) BUN 14 (9-16) mg/dL Creatinine 0.74 (0.5-1.4) mg/dL Estim Creat Clear Calc 74.3 Estimated GFR > 60 Random Glucose 91 (60-115) mg/dL Lactic Acid 0.9 (0.5-2.0) mmol/L Calcium 8.7 (8.4-10.2) mg/dL Total Bilirubin 0.4 (0.0-1.0) mg/dL Direct Bilirubin < 0.2 (0.0-0.5) mg/dL AST 14 (5-31) U/L ALT 9 (0-31) U/L Alkaline Phosphatase 100 (39-117) U/L Total Protein 6.8 (6.5-8.0) g/dL Albumin 3.9 (3.5-5.0) g/dL COVID-19 ([facility]) (Negative) COVID-19 Clin Com 06/08/22 Range/Units 16:15 WBC (4.8-10.8) X10*3/uL RBC (4.20-5.50) X10*6/uL Hgb (12.0-16.0) g/dl Hct (37.0-47.0) % MCV (80.0-98.0) fL MCH (27.0-33.0) pg MCHC (31.0-35.0) g/dl RDW (11.0-16.0) % Plt Count (160-400) X10*3/uL MPV (9.4-12.3) fL Immature Gran % (Auto) (0.0-0.4) % Neut % (Auto) (45-73) % Lymph % (Auto) (20-40) % [place] % (Auto) (2-11) % Eos % (Auto) (0-4) % Baso % (Auto) (0-2) % Lymph # (Auto) (1.2-4.9) X10*3/uL [place] # (Auto) (0.1-1.2) X10*3/uL Eos # (Auto) (0.0-0.4) X10*3/uL Baso # (Auto) (0.0-0.2) X10*3/uL Abs Immat Gran (auto) (0.00-0.03) X10*3/uL Absolute Neuts (auto) (2.0-8.3) x10*3/uL Absolute Nucleated RBC (0.0-0.012) X10*3/uL Nucleated RBC % (auto) (0.0-0.2) /100WBC Sodium (135-145) mmol/L Potassium (3.3-5.1) mmol/L Chloride (96-108) mmol/L Carbon Dioxide (22-29) mmol/L Anion Gap (12-20) BUN (9-16) mg/dL Creatinine (0.5-1.4) mg/dL Estim Creat Clear Calc Estimated GFR Random Glucose (60-115) mg/dL Lactic Acid (0.5-2.0) mmol/L Calcium (8.4-10.2) mg/dL Total Bilirubin (0.0-1.0) mg/dL Direct Bilirubin (0.0-0.5) mg/dL AST (5-31) U/L ALT (0-31) U/L Alkaline Phosphatase (39-117) U/L Total Protein (6.5-8.0) g/dL Albumin (3.5-5.0) g/dL COVID-19 ([facility]) Negative (Negative) COVID-19 Clin Com See Note <Maria Guadalupe Pisano, [employer] - Last Filed: 06/08/22 14:02> Lab Results 06/08/22 06/08/22 06/08/22 Range/Units 16:15 16:15 16:15 WBC 6.4 (4.8-10.8) X10*3/uL RBC 4.00 L (4.20-5.50) X10*6/uL Hgb 12.0 (12.0-16.0) g/dl Hct 39.1 (37.0-47.0) % MCV 97.8 (80.0-98.0) fL MCH 30.0 (27.0-33.0) pg MCHC 30.7 L (31.0-35.0) g/dl RDW 14.3 (11.0-16.0) % Plt Count 280 (160-400) X10*3/uL MPV 8.3 L (9.4-12.3) fL Immature Gran % (Auto) 0.3 (0.0-0.4) % Neut % (Auto) 70.1 (45-73) % Lymph % (Auto) 20.7 (20-40) % [place] % (Auto) 7.0 (2-11) % Eos % (Auto) 1.6 (0-4) % Baso % (Auto) 0.3 (0-2) % Lymph # (Auto) 1.3 (1.2-4.9) X10*3/uL [place] # (Auto) 0.5 (0.1-1.2) X10*3/uL Eos # (Auto) 0.1 (0.0-0.4) X10*3/uL Baso # (Auto) 0.0 (0.0-0.2) X10*3/uL Abs Immat Gran (auto) 0.02 (0.00-0.03) X10*3/uL Absolute Neuts (auto) 4.5 (2.0-8.3) x10*3/uL Absolute Nucleated RBC 0.000 (0.0-0.012) X10*3/uL Nucleated RBC % (auto) 0.0 (0.0-0.2) /100WBC Sodium 142 (135-145) mmol/L Potassium 4.2 (3.3-5.1) mmol/L Chloride 107 (96-108) mmol/L Carbon Dioxide 27 (22-29) mmol/L Anion Gap 12 (12-20) BUN 14 (9-16) mg/dL Creatinine 0.74 (0.5-1.4) mg/dL Estim Creat Clear Calc 74.3 Estimated GFR > 60 Random Glucose 91 (60-115) mg/dL Lactic Acid 0.9 (0.5-2.0) mmol/L Calcium 8.7 (8.4-10.2) mg/dL Total Bilirubin 0.4 (0.0-1.0) mg/dL Direct Bilirubin < 0.2 (0.0-0.5) mg/dL AST 14 (5-31) U/L ALT 9 (0-31) U/L Alkaline Phosphatase 100 (39-117) U/L Total Protein 6.8 (6.5-8.0) g/dL Albumin 3.9 (3.5-5.0) g/dL COVID-19 ([facility]) (Negative) COVID-19 Clin Com 06/08/22 Range/Units 16:15 WBC (4.8-10.8) X10*3/uL RBC (4.20-5.50) X10*6/uL Hgb (12.0-16.0) g/dl Hct (37.0-47.0) % MCV (80.0-98.0) fL MCH (27.0-33.0) pg MCHC (31.0-35.0) g/dl RDW (11.0-16.0) % Plt Count (160-400) X10*3/uL MPV (9.4-12.3) fL Immature Gran % (Auto) (0.0-0.4) % Neut % (Auto) (45-73) % Lymph % (Auto) (20-40) % [place] % (Auto) (2-11) % Eos % (Auto) (0-4) % Baso % (Auto) (0-2) % Lymph # (Auto) (1.2-4.9) X10*3/uL [place] # (Auto) (0.1-1.2) X10*3/uL Eos # (Auto) (0.0-0.4) X10*3/uL Baso # (Auto) (0.0-0.2) X10*3/uL Abs Immat Gran (auto) (0.00-0.03) X10*3/uL Absolute Neuts (auto) (2.0-8.3) x10*3/uL Absolute Nucleated RBC (0.0-0.012) X10*3/uL Nucleated RBC % (auto) (0.0-0.2) /100WBC Sodium (135-145) mmol/L Potassium (3.3-5.1) mmol/L Chloride (96-108) mmol/L Carbon Dioxide (22-29) mmol/L Anion Gap (12-20) BUN (9-16) mg/dL Creatinine (0.5-1.4) mg/dL Estim Creat Clear Calc Estimated GFR Random Glucose (60-115) mg/dL Lactic Acid (0.5-2.0) mmol/L Calcium (8.4-10.2) mg/dL Total Bilirubin (0.0-1.0) mg/dL Direct Bilirubin (0.0-0.5) mg/dL AST (5-31) U/L ALT (0-31) U/L Alkaline Phosphatase (39-117) U/L Total Protein (6.5-8.0) g/dL Albumin (3.5-5.0) g/dL COVID-19 ([facility]) Negative (Negative) COVID-19 Clin Com See Note <Royal Torres MD - Last Filed: 06/08/22 22:40> Discharge Plan Discharge Clinical Impression: Lymphedema <Maria Guadalupe Pisano NP - Last Filed: 06/08/22 14:02> Patient Disposition: Home, Self-Care <Maria Guadalupe Pisano NP - Last Filed: 06/08/22 14:02> Instructions: Lymphedema (ED) <Maria Guadalupe Pisano NP - Last Filed: 06/08/22 14:02> Additional Instructions: Continue Keflex start taking doxycycline 1 capsule twice a day Follow-up with wound clinic as scheduled next week dressing as adv <Maria Guadalupe Pisano NP - Last Filed: 06/08/22 14:02> Prescriptions: New doxycycline hyclate 100 mg tablet 100 mg PO BID Qty: 20 0RF No Action pantoprazole 40 mg tablet,delayed release (DR/EC) 40 mg PO DAILY 90 Days Qty: 90 1RF furosemide [Lasix] 20 mg tablet 20 mg PO DAILY 10 Days Qty: 10 0RF hydrochlorothiazide 25 mg tablet 25 mg PO DAILY 90 Days Qty: 90 1RF escitalopram oxalate [Lexapro] 20 mg tablet 20 mg PO DAILY bupropion HCl [Wellbutrin XL] 300 mg tablet extended release 24 hr 300 mg PO QAM aripiprazole [Abilify] 10 mg tablet 10 mg PO DAILY ascorbic acid (vitamin C) 1,000 mg tablet 2 g PO DAILY cholecalciferol (vitamin D3) 50 mcg (2,000 unit) capsule 50 mcg PO DAILY ferrous sulfate [Feosol] 325 mg (65 mg iron) tablet 325 mg PO DAILY calcium PO DAILY multivitamin [Daily Multi-Vitamin] Tablet 1 tab PO DAILY primidone 50 mg tablet 50 mg PO BEDTIME bupropion HCl 150 mg tablet extended release 24 hr 150 mg PO QAM metformin 500 mg tablet 500 mg PO DAILY cephalexin 500 mg capsule 500 mg PO TID Qty: 30 0RF propranolol 60 mg capsule,extended release 24 hr 60 mg PO DAILY hydroxyzine HCl 25 mg tablet 25 mg PO BID <Maria Guadalupe Pisano NP - Last Filed: 06/08/22 14:02> Interventions: ED Discharge Assessment Last Done: 06/08/22 22:35 <Maria Guadalupe Pisano NP - Last Filed: 06/08/22 14:02>
[2022-06-08 14:00] VITALS: BP 131/80; PULSE 83; RESP 18; TEMP 36.3; O2SAT 97
[2022-06-08 14:23] VITALS: BP 131/80; PULSE 83; RESP 18; TEMP 36.3; O2SAT 97; BMI 54.3
[2022-06-08 16:21] LABS: MANUAL DIFF FLAG NO
[2022-06-08 16:22] LABS: Basophils Percent Auto 0.3 % (0-2); Eosinophils Absolute Auto 0.1 X10*3/uL (0.0-0.4); Eosinophils Percent Auto 1.6 % (0-4); Hematocrit 39.1 % (37.0-47.0); Imm Gran Abs Auto 0.02 X10*3/uL (0.00-0.03); Imm Gran Pct Auto 0.3 % (0.0-0.4); Lymphocytes Absolute Auto 1.3 X10*3/uL (1.2-4.9); Lymphocytes Percent Auto 20.7 % (20-40); Mean Corpuscular HGB Conc 30.7 g/dl (31.0-35.0); Mean Corpuscular Volume 97.8 fL (80.0-98.0); Mean Platelet Volume 8.3 fL (9.4-12.3); Monocytes Absolute Auto 0.5 X10*3/uL (0.1-1.2); Neutrophils Absolute Auto 4.5 x10*3/uL (2.0-8.3); Neutrophils Percent Auto 70.1 % (45-73); Platelet Count 280 X10*3/uL (160-400); Red Cell Distribution Width 14.3 % (11.0-16.0); White Blood Count 6.4 X10*3/uL (4.8-10.8)
[2022-06-08 16:38] LABS: Lactic Acid 0.9 mmol/L (0.5-2.0)
[2022-06-08 16:39] LABS: Alanine Aminotransferase 9 U/L (0-31); Albumin Level 3.9 g/dL (3.5-5.0); Alkaline Phosphatase 100 U/L (39-117); Anion Gap 12 (12-20); Aspartate Amino Transferase 14 U/L (5-31); Bilirubin Direct < 0.2 mg/dL (0.0-0.5); Bilirubin Total 0.4 mg/dL (0.0-1.0); Blood Urea Nitrogen 14 mg/dL (9-16); Calcium 8.7 mg/dL (8.4-10.2); Carbon Dioxide 27 mmol/L (22-29); Chloride 107 mmol/L (96-108); Creatinine Clr Calc Pharmacy 74.3; Estimated Glomerular Filt Rate > 60; Glucose Random 91 mg/dL (60-115); Potassium 4.2 mmol/L (3.3-5.1); Sodium 142 mmol/L (135-145); Total Protein 6.8 g/dL (6.5-8.0)
[2022-06-08 16:40] LABS: COVID-19 Test Negative (Negative); IDNOW Serial# BCCEAD1C
[2022-06-08 22:31] VITALS: BP 151/70; PULSE 101; RESP 20; TEMP 36.8; O2SAT 96
== END 2022-06-08 22:36 | disposition home or self-care (01) ==
PROVIDERS: Nurse Practitioner Family; Emergency Provider Internal Medicine; PCP Internal Medicine
DX: I89.0 Lymphedema, not elsewhere classified (principal); Z20.822 Contact with and (suspected) exposure to COVID-19; Z20.828 Contact with and (suspected) exposure to other viral communicable diseases; Z79.899 Other long term (current) drug therapy
CPT/HCPCS: 80048; 80076; 83605; 85025; 87040; 87635; 99283; 99284

== ENCOUNTER → 2022-06-09 10:08 | Outpatient (BNVA) | payer MEDICARE, MEDICAID, SELFPAY | PROVIDERS: PCP Internal Medicine; Referring Provider Internal Medicine; Visit Provider Internal Medicine | DX: I45.10 Unspecified right bundle-branch block (principal); I89.0 Lymphedema, not elsewhere classified; I35.9 Nonrheumatic aortic valve disorder, unspecified; I34.81 Nonrheumatic mitral (valve) annulus calcification | CPT/HCPCS: 99202 ==

== ENCOUNTER 2022-06-11 12:33 | Outpatient (RCR) | payer MEDICARE, MEDICAID, SELFPAY | END 2022-07-16 16:00 | disposition home or self-care (01) | LOC: HO.WCC 12:33 | PROVIDERS: PCP Internal Medicine; Visit Provider Surgery | DX: I87.333 Chronic venous hypertension (idiopathic) with ulcer and inflammation of bilateral lower extremity (principal); L97.812 Non-pressure chronic ulcer of other part of right lower leg with fat layer exposed; L97.822 Non-pressure chronic ulcer of other part of left lower leg with fat layer exposed; Q82.0 Hereditary lymphedema; Z87.891 Personal history of nicotine dependence | CPT/HCPCS: 11042; 11045; 97597; 99212; 99213 ==

== ENCOUNTER → 2022-06-12 08:55 | Outpatient (REF) | payer MEDICARE, MEDICAID, SELFPAY | LOC: HO.SL 08:55 | PROVIDERS: PCP Internal Medicine; Visit Provider Internal Medicine | DX: G47.33 Obstructive sleep apnea (adult) (pediatric) (principal) | CPT/HCPCS: 95806 ==

== ENCOUNTER 2022-07-08 03:07 | Emergency (ER) | payer MEDICARE, MEDICAID, SELFPAY ==
--- NOTE | ~2022-07-08 | XR_ITS ---
EXAMINATION: XR CHEST CLINICAL INFORMATION: Shortness of breath COMPARISON: 05/02/2022 TECHNIQUE: Frontal view of the chest was obtained. FINDINGS: The lungs are clear with no focal consolidation. No evidence of pneumothorax, pulmonary edema, or pleural effusions. Cardiac size is within normal limits. Calcification is present at the aortic arch. No acute osseous findings are seen. XR/XR chest 1V IMPRESSION: No acute cardiopulmonary findings.
[2022-07-08 03:20] VITALS: BP 158/83; PULSE 62; RESP 20; O2SAT 95; BMI 50.8
[2022-07-08 04:14] LABS: Influenza A PCR NEGATIVE (Negative); Influenza B PCR NEGATIVE (Negative); Resp Syncy Virus RNA Qual PCR NEGATIVE (Negative); SARS COV2 PCR INHOUSE NEGATIVE (Negative)
--- NOTE | 2022-07-08 05:12 | ED.SOB ---
HPI - SOB/Dyspnea General Chief Complaint: Upper Respiratory Symptoms Stated Complaint: Sob Time Seen by Provider: 07/08/22 05:09 Source: patient Mode of arrival: ambulatory Limitations: no limitations History of Present Illness HPI Narrative: Patient 76 years old obese with history of hypertension no known coronary artery disease status post bariatric surgery in the past has been using CPAP many years for restless leg syndrome says test was negative for sleep studies comes here for increased shortness of breath and wheezing for last 4 5 days was seen [facility] who started her on prednisone patient is still wheezing and coughing. Patient has similar episode in April when she was given prednisone and inhaler at that. No history of asthma or COPD Related Data Home Medications Medication Instructions Recorded Confirmed aripiprazole 10 mg tablet (Abilify) 10 mg PO DAILY 04/02/20 06/19/22 ascorbic acid (vitamin C) 1,000 mg 2 g PO DAILY 04/02/20 06/19/22 tablet bupropion HCl 300 mg 24 hr tablet, 300 mg PO QAM 04/02/20 06/19/22 extended release (Wellbutrin XL) calcium [calcium citrate] PO DAILY 04/02/20 06/19/22 cholecalciferol (vitamin D3) 50 50 mcg PO DAILY 04/02/20 06/19/22 mcg (2,000 unit) capsule ferrous sulfate 325 mg (65 mg 325 mg PO DAILY 04/02/20 06/19/22 iron) tablet (Feosol) multivitamin (Daily Multi-Vitamin 1 tab PO DAILY 04/02/20 06/19/22 tablet) primidone 50 mg tablet 50 mg PO BEDTIME 04/02/20 06/19/22 escitalopram oxalate 20 mg tablet 20 mg PO DAILY 07/30/20 06/19/22 (Lexapro) bupropion HCl 150 mg 24 hr tablet, 150 mg PO QAM 08/06/21 06/19/22 extended release metformin 500 mg tablet 500 mg PO DAILY 08/06/21 06/19/22 propranolol 60 mg capsule,24 60 mg PO DAILY 09/19/21 06/19/22 hr,extended release lorazepam 0.5 mg tablet 0.5 mg PO ONCE PRN 06/24/22 Previous Rx's Medication Instructions Recorded pantoprazole 40 mg tablet,delayed 40 mg PO DAILY 90 days #90 tabs 06/13/22 release hydrochlorothiazide 25 mg tablet 25 mg PO DAILY 90 days #90 tabs 06/08/22 albuterol sulfate 90 mcg/actuation 1 inh inhalation QID PRN shortness 06/19/22 aerosol inhaler (ProAir HFA) of breath or wheezing 30 days #18 grams oxycodone-acetaminophen 5 mg-325 1 tab PO BID PRN pain 15 days #30 06/23/22 mg tablet (Percocet) tabs benzonatate 200 mg capsule 200 mg PO TID PRN cough #30 caps 07/08/22 cefpodoxime 200 mg tablet 200 mg PO BID #20 tabs 07/08/22 Allergies Allergy/AdvReac Type Severity Reaction Status Date / Time sucralfate [Carafate] Allergy Unknown hives Verified 06/19/22 15:10 Review of Systems Review of Systems: Yes all other systems are reviewed and are negative [facility] Past Medical History Medical History Chronic GERD Depression, major, recurrent Hip pain, right Hypertension, essential Nail fungus Surgical History History of bilateral tubal ligation History of cataract extraction History of tonsillectomy History of total hip arthroplasty S/P gastric bypass Family History Family History Father No problems noted. Mother Alzheimer's disease Maternal Grandmother Cancer Maternal Grandfather No problems noted. Paternal Grandfather No problems noted. Paternal Grandmother No problems noted. Maternal Aunt Cancer Sister Colon cancer Son No problems noted. Daughter No problems noted. Social History Social History Housing: Other Housing Other:: Mobile Home Are you a primary lead caregiver to a significant other at home: No Do you presently have visiting nurse or other home services: No Alcohol intake: never Patient Tobacco Use Status: Former Tobacco user Quit Date: 2012 Smoked: 40 +/- e-Cigarette/Vaping Use: Currently Using Advance Directives: No Advance Directives Information Provided: No service: No Current occupational status: retired and other Current occupation: right handed Cognitive needs: No Hearing needs: No Vision needs: No Physical Exam Vital Signs: Vital Signs: Last Vital Signs Temp 97.6 F 07/08/22 05:29 Pulse 74 07/08/22 05:41 Resp 22 H 07/08/22 05:41 BP 159/81 H 07/08/22 05:29 Pulse Ox 95 07/08/22 06:15 O2 Del Method 07/08/22 06:15 BMI result Body Mass Index 50.8 Appearance: Alert. Oriented X3. Obese Eyes: PERRLA, No Nystagmus ENT: Pharynx normal. Oral Mucosa moist Neck: Normal inspection. Neck supple. CVS: Normal heart rate and rhythm. Pulses normal. Respiratory: No respiratory distress. Equal air entry bilateral, bilateral wheezing crackles at bases Abdomen: Soft and nontender. Bowel sounds are present, no mass palpable, no CVA tenderness Skin: Skin warm and dry. Normal skin color. Normal skin turgor. Extremities: 2+ nonpitting lower extremity edema. No calf tenderness Neuro: Oriented X 3. No motor deficit. Medications Administered Discontinued Medications Generic Name Dose Route Start Last Admin Trade Name Mattiq PRN Reason Stop Dose Admin Albuterol Sulfate 2.5 mg/ 0 mg 07/08/22 05:19 07/08/22 05:[address] 0.5 mg INHALE 07/08/22 05:20 1 each ONCE ONE Administration Medical Decision Making Medical Decision Making [facility] Narrative: Patient with acute on chronic bronchitis sleep apnea been sick for last 2 months post COVID on prednisone and inhaler will add doxycycline will discharge patient home advised to follow with PCP patient is saturating 95% at room air Differential Diagnosis Pneumonia/sleep apnea/CHF Lab Data [facility] Lab Attestation statement: I reviewed the patient's lab results. 07/08/22 05:33 07/08/22 05:33 Labs: Lab Results 07/08/22 07/08/22 07/08/22 Range/Units 03:33 05:33 05:33 WBC 7.2 (4.8-10.8) X10*3/uL RBC 4.11 L (4.20-5.50) X10*6/uL Hgb 12.2 (12.0-16.0) g/dl Hct 39.5 (37.0-47.0) % MCV 96.1 (80.0-98.0) fL MCH 29.7 (27.0-33.0) pg MCHC 30.9 L (31.0-35.0) g/dl RDW 13.7 (11.0-16.0) % Plt Count 283 (160-400) X10*3/uL MPV 8.0 L (9.4-12.3) fL Immature Gran % (Auto) 0.7 H (0.0-0.4) % Neut % (Auto) 62.0 (45-73) % Lymph % (Auto) 29.9 (20-40) % [place] % (Auto) 6.1 (2-11) % Eos % (Auto) 1.0 (0-4) % Baso % (Auto) 0.3 (0-2) % Lymph # (Auto) 2.2 (1.2-4.9) X10*3/uL [place] # (Auto) 0.4 (0.1-1.2) X10*3/uL Eos # (Auto) 0.1 (0.0-0.4) X10*3/uL Baso # (Auto) 0.0 (0.0-0.2) X10*3/uL Abs Immat Gran (auto) 0.05 H (0.00-0.03) X10*3/uL Absolute Neuts (auto) 4.5 (2.0-8.3) x10*3/uL Absolute Nucleated RBC 0.000 (0.0-0.012) X10*3/uL Nucleated RBC % (auto) 0.0 (0.0-0.2) /100WBC Sodium 142 (135-145) mmol/L Potassium 3.6 (3.3-5.1) mmol/L Chloride 102 (96-108) mmol/L Carbon Dioxide 32 H (22-29) mmol/L Anion Gap 12 (12-20) BUN 20 H (9-16) mg/dL Creatinine 0.87 (0.5-1.4) mg/dL Estim Creat Clear Calc 65.6 Estimated GFR > 60 Random Glucose 87 (60-115) mg/dL Calcium 8.7 (8.4-10.2) mg/dL Total Bilirubin 0.4 (0.0-1.0) mg/dL AST 24 (5-31) U/L ALT 24 (0-31) U/L Alkaline Phosphatase 91 (39-117) U/L Troponin I High Sens (<3.5-17.0) ng/L B-Natriuretic Peptide (<100) pg/mL Total Protein 6.6 (6.5-8.0) g/dL Albumin 3.8 (3.5-5.0) g/dL Urine Color Urine Appearance Urine pH (5.0-9.0) Ur Specific Jesse (1.005-1.025) Urine Protein (Neg-Trace) mg/dL Urine Glucose (UA) (Negative) mg/dL Urine Ketones (Negative) mg/dL Urine Blood (Negative) Urine Nitrite (Negative) Ur Leukocyte Esterase (Negative) Urine RBC (0-2) /HPF Urine WBC (0-5) /HPF Ur Squamous Epith Cells (0-2) /HPF Urine Bacteria (None Seen) Hyaline Casts (0-2) /LPF Influenza Type A (PCR) NEGATIVE (Negative) Influenza Type B (PCR) NEGATIVE (Negative) RSV RNA Qual (PCR) NEGATIVE (Negative) SARS-CoV-2 RNA (RT-PCR) NEGATIVE (Negative) 07/08/22 07/08/22 07/08/22 Range/Units 05:33 05:33 05:38 WBC (4.8-10.8) X10*3/uL RBC (4.20-5.50) X10*6/uL Hgb (12.0-16.0) g/dl Hct (37.0-47.0) % MCV (80.0-98.0) fL MCH (27.0-33.0) pg MCHC (31.0-35.0) g/dl RDW (11.0-16.0) % Plt Count (160-400) X10*3/uL MPV (9.4-12.3) fL Immature Gran % (Auto) (0.0-0.4) % Neut % (Auto) (45-73) % Lymph % (Auto) (20-40) % [place] % (Auto) (2-11) % Eos % (Auto) (0-4) % Baso % (Auto) (0-2) % Lymph # (Auto) (1.2-4.9) X10*3/uL [place] # (Auto) (0.1-1.2) X10*3/uL Eos # (Auto) (0.0-0.4) X10*3/uL Baso # (Auto) (0.0-0.2) X10*3/uL Abs Immat Gran (auto) (0.00-0.03) X10*3/uL Absolute Neuts (auto) (2.0-8.3) x10*3/uL Absolute Nucleated RBC (0.0-0.012) X10*3/uL Nucleated RBC % (auto) (0.0-0.2) /100WBC Sodium (135-145) mmol/L Potassium (3.3-5.1) mmol/L Chloride (96-108) mmol/L Carbon Dioxide (22-29) mmol/L Anion Gap (12-20) BUN (9-16) mg/dL Creatinine (0.5-1.4) mg/dL Estim Creat Clear Calc Estimated GFR Random Glucose (60-115) mg/dL Calcium (8.4-10.2) mg/dL Total Bilirubin (0.0-1.0) mg/dL AST (5-31) U/L ALT (0-31) U/L Alkaline Phosphatase (39-117) U/L Troponin I High Sens < 3.5 (<3.5-17.0) ng/L B-Natriuretic Peptide 78 (<100) pg/mL Total Protein (6.5-8.0) g/dL Albumin (3.5-5.0) g/dL Urine Color Yellow Urine Appearance Clear Urine pH 5.5 (5.0-9.0) Ur Specific Jesse >= 1.030 H (1.005-1.025) Urine Protein Trace (Neg-Trace) mg/dL Urine Glucose (UA) Negative (Negative) mg/dL Urine Ketones Trace (Negative) mg/dL Urine Blood Negative (Negative) Urine Nitrite Negative (Negative) Ur Leukocyte Esterase Small (1+) H (Negative) Urine RBC 0-2 (0-2) /HPF Urine WBC 6-10 H (0-5) /HPF Ur Squamous Epith Cells 0-2 (0-2) /HPF Urine Bacteria None Seen (None Seen) Hyaline Casts 0-2 (0-2) /LPF Influenza Type A (PCR) (Negative) Influenza Type B (PCR) (Negative) RSV RNA Qual (PCR) (Negative) SARS-CoV-2 RNA (RT-PCR) (Negative) Discharge Plan Discharge Clinical Impression: Acute bronchitis Patient Disposition: Home, Self-Care Instructions: Acute Bronchitis (ED) Additional Instructions: Continue use inhaler every 4 hours as needed Continue prednisone as prescribed Antibiotics as prescribed Follow-up with PCP if not better Prescriptions: New cefpodoxime 200 mg tablet 200 mg PO BID Qty: 20 0RF Rx Instructions: must administer with a meal/food benzonatate 200 mg capsule 200 mg PO TID PRN (Reason: cough) Qty: 30 0RF No Action pantoprazole 40 mg tablet,delayed release (DR/EC) 40 mg PO DAILY 90 Days Qty: 90 1RF hydrochlorothiazide 25 mg tablet 25 mg PO DAILY 90 Days Qty: 90 1RF oxycodone-acetaminophen [Percocet] 5-325 mg tablet 1 tab PO BID PRN (Reason: pain) 15 Days Qty: 30 0RF Rx Instructions: Partial Fill upon patient request. escitalopram oxalate [Lexapro] 20 mg tablet 20 mg PO DAILY bupropion HCl [Wellbutrin XL] 300 mg tablet extended release 24 hr 300 mg PO QAM aripiprazole [Abilify] 10 mg tablet 10 mg PO DAILY ascorbic acid (vitamin C) 1,000 mg tablet 2 g PO DAILY cholecalciferol (vitamin D3) 50 mcg (2,000 unit) capsule 50 mcg PO DAILY ferrous sulfate [Feosol] 325 mg (65 mg iron) tablet 325 mg PO DAILY calcium PO DAILY multivitamin [Daily Multi-Vitamin] Tablet 1 tab PO DAILY primidone 50 mg tablet 50 mg PO BEDTIME bupropion HCl 150 mg tablet extended release 24 hr 150 mg PO QAM metformin 500 mg tablet 500 mg PO DAILY lorazepam 0.5 mg tablet 0.5 mg PO ONCE PRN albuterol sulfate [ProAir HFA] 90 mcg/actuation HFA aerosol inhaler 1 inh inhalation QID PRN (Reason: shortness of breath or wheezing) 30 Days Qty: 18 0RF propranolol 60 mg capsule,extended release 24 hr 60 mg PO DAILY
[2022-07-08 05:29] VITALS: BP 159/81; PULSE 69; RESP 18; TEMP 36.4; O2SAT 95
[2022-07-08 05:38] VITALS: PULSE 69; RESP 22; O2SAT 95
[2022-07-08 05:38] LABS: Basophils Percent Auto 0.3 % (0-2); Eosinophils Absolute Auto 0.1 X10*3/uL (0.0-0.4); Hematocrit 39.5 % (37.0-47.0); Hemoglobin 12.2 g/dl (12.0-16.0); Imm Gran Abs Auto 0.05 X10*3/uL (0.00-0.03); Imm Gran Pct Auto 0.7 % (0.0-0.4); Lymphocytes Absolute Auto 2.2 X10*3/uL (1.2-4.9); Lymphocytes Percent Auto 29.9 % (20-40); MANUAL DIFF FLAG NO; Mean Corpuscular HGB Conc 30.9 g/dl (31.0-35.0); Mean Corpuscular Hemoglobin 29.7 pg (27.0-33.0); Mean Corpuscular Volume 96.1 fL (80.0-98.0); Monocytes Absolute Auto 0.4 X10*3/uL (0.1-1.2); Monocytes Percent Auto 6.1 % (2-11); Neutrophils Absolute Auto 4.5 x10*3/uL (2.0-8.3); Platelet Count 283 X10*3/uL (160-400); Red Blood Count 4.11 X10*6/uL (4.20-5.50); Red Cell Distribution Width 13.7 % (11.0-16.0); White Blood Count 7.2 X10*3/uL (4.8-10.8)
[2022-07-08 05:41] VITALS: PULSE 74; RESP 22; O2SAT 95
--- NOTE | 2022-07-08 05:42 | PC.NURSE ---
pt is receiving a updraft at this time. sat wnl. vitals stable.
[2022-07-08 05:47] LABS: Appearance Urine Clear; Color Urine Yellow; Glucose Urine UA Negative (Negative); Leukocyte Esterase Urine Small (1+) (Negative); Nitrite Urine Negative (Negative); PH 5.5 (5.0-9.0); Specific Gravity - Urine >= 1.030 (1.005-1.025); UMIC TRIGGER UACC YES; Urine Blood Negative (Negative); Urine Ketones Trace mg/dL (Negative); Urine Protein Trace mg/dL (Neg-Trace)
[2022-07-08 05:52] LABS: Bacteria Urine None Seen (None Seen); Hyaline Casts Urine 0-2 /LPF (0-2); RBC Urine 0-2 /HPF (0-2); Squamous Epithelial Cell Urine 0-2 /HPF (0-2); UACC Culture Trigger YES
[2022-07-08 05:54] LABS: Alanine Aminotransferase 24 U/L (0-31); Albumin Level 3.8 g/dL (3.5-5.0); Alkaline Phosphatase 91 U/L (39-117); Anion Gap 12 (12-20); Aspartate Amino Transferase 24 U/L (5-31); Bilirubin Total 0.4 mg/dL (0.0-1.0); Blood Urea Nitrogen 20 mg/dL (9-16); Calcium 8.7 mg/dL (8.4-10.2); Carbon Dioxide 32 mmol/L (22-29); Chloride 102 mmol/L (96-108); Creatinine Clr Calc Pharmacy 65.6; Estimated Glomerular Filt Rate > 60; Glucose Random 87 mg/dL (60-115); Potassium 3.6 mmol/L (3.3-5.1); Sodium 142 mmol/L (135-145); Total Protein 6.6 g/dL (6.5-8.0)
[2022-07-08 05:59] LABS: Troponin-I High Sensitivity < 3.5 ng/L (<3.5-17.0)
[2022-07-08 06:00] LABS: B Type Natriuretic Peptide 78 pg/mL (<100)
[2022-07-08 06:15] VITALS: O2SAT 95
[2022-07-08] MEDS: guaiFEN/Codeine SF 200/20/10ML 10 ML LIQUID PO (06:50)
== END 2022-07-08 06:54 | disposition home or self-care (01) ==
PROVIDERS: Emergency Provider Internal Medicine; PCP Internal Medicine
DX: J42 Unspecified chronic bronchitis (principal); R06.02 Shortness of breath; Z20.822 Contact with and (suspected) exposure to COVID-19; Z20.828 Contact with and (suspected) exposure to other viral communicable diseases; I10 Essential (primary) hypertension; Z98.84 Bariatric surgery status; Z87.891 Personal history of nicotine dependence; Z79.899 Other long term (current) drug therapy; Z79.84 Long term (current) use of oral hypoglycemic drugs
CPT/HCPCS: 0241U; 36415; 71045; 80053; 81001; 83880; 84484; 85025; 87086; 94640; 99284

== ENCOUNTER → 2022-08-12 14:11 | Outpatient (BNVA) | payer MEDICARE, MEDICAID, SELFPAY | PROVIDERS: PCP Internal Medicine; Visit Provider Internal Medicine | DX: G47.34 Idiopathic sleep related nonobstructive alveolar hypoventilation (principal); J44.9 Chronic obstructive pulmonary disease, unspecified; J98.4 Other disorders of lung; I87.303 Chronic venous hypertension (idiopathic) without complications of bilateral lower extremity; I89.0 Lymphedema, not elsewhere classified; E66.01 Morbid (severe) obesity due to excess calories; Z68.43 Body mass index [BMI] 50.0-59.9, adult | CPT/HCPCS: 99202 ==

== ENCOUNTER 2022-08-14 08:39 | Day surgery (SDC) | payer MEDICARE, MEDICAID, SELFPAY ==
[2022-08-14 09:15] VITALS: BP 147/77; PULSE 66; RESP 18; TEMP 36.4; O2SAT 98; BMI 47.8
--- NOTE | 2022-08-14 09:50 | HO.ANESPROP2 ---
[facility] Active Problems Active Problems: All Active Problems (Updated 08/12/22 @ 17:06 by Oriana Smith MD) Nocturnal hypoxemia (Acute) COPD (chronic obstructive pulmonary disease) (Acute) Restrictive lung disease (Acute) Lymphedema (Acute) Stasis edema of both lower extremities (Acute) Pain management contract agreement (Acute) Open wound of right lower leg with complication (Acute) Post-COVID chronic dyspnea (Acute) Ex-smoker (Acute) Shortness of breath (Acute) Mitral annular calcification (Acute) Aortic valve calcification (Acute) Lymphedema (Acute) Morbid obesity due to excess calories (Acute) Right bundle branch block (Acute) Premature atrial contractions (Acute) Peripheral vascular disease (Acute) Cough (Acute) Influenza A H1N1 infection (Acute) Hospital discharge follow-up (Acute) Cellulitis of right leg (Acute) S/P gastric bypass (Acute) Varicose veins of right lower extremity with inflammation (Acute) Edema (Acute) Medicare annual wellness visit, subsequent (Acute) Open wound of right hip and thigh (Acute) Traumatic seroma of right thigh (Acute) Postprocedural seroma of skin and subcutaneous tissue following other procedure (Acute) History of total hip arthroplasty (Acute) Enterococcus faecalis infection (Acute) Abscess (Acute) Hip pain, right (Acute) Family history of colon cancer (Acute) Colon cancer screening (Acute) Encounter for general adult medical examination with abnormal findings (Acute) Obesity (Acute) Pre-op evaluation (Acute) Morbid obesity due to excess calories (Acute) Hip pain, right (Acute) Nail fungus (Acute) Chronic GERD (Acute) Depression, major, recurrent (Acute) Hypertension, essential (Acute) Past Medical History Medical History (Updated 08/12/22 @ 17:06 by Oriana Smith MD) Chronic GERD COPD (chronic obstructive pulmonary disease) Depression, major, recurrent Hip pain, right Hypertension, essential Lymphedema Nail fungus Nocturnal hypoxemia Restrictive lung disease Stasis edema of both lower extremities Family History Family History Father No problems noted. Mother Alzheimer's disease Maternal Grandmother Cancer Maternal Grandfather No problems noted. Paternal Grandfather No problems noted. Paternal Grandmother No problems noted. Maternal Aunt Cancer Sister Colon cancer Son No problems noted. Daughter No problems noted. Family history of problems with anesthesia: No Surgical History Surgical History History of bilateral tubal ligation History of cataract extraction History of tonsillectomy History of total hip arthroplasty S/P gastric bypass History of Problems with Anesthesia: No Social History Social History Housing: Other Housing Other:: Mobile Home Are you a primary animal care worker to a significant other at home: No Do you presently have visiting nurse or other home services: No Alcohol intake: never Patient Tobacco Use Status: Former Tobacco user Quit Date: 2012 Years Smoked: 40 +/- e-Cigarette/Vaping Use: Currently Using Are you DNR?: No Advance Directives: No Advance Directives Information Provided: Yes service: No Current occupational status: retired and other Current occupation: right handed Cognitive needs: No Hearing needs: No Vision needs: No Meds Allergies Allergy/AdvReac Type Severity Reaction Status Date / Time sucralfate [Carafate] Allergy Unknown hives Verified 08/12/22 16:37 Active Medications: Current Medications Lactated Ringer's (Lr) 1,000 mls @ 50 mls/hr IVCONT .Q20H [facility] Home Medications Medication Instructions Recorded Confirmed Last Taken Type aripiprazole 10 mg tablet (Abilify) 10 mg PO DAILY 04/02/20 08/14/22 01/20/21 History ascorbic acid (vitamin C) 1,000 mg 2 g PO DAILY 04/02/20 08/14/22 Unknown History tablet bupropion HCl 300 mg 24 hr tablet, 300 mg PO QAM 04/02/20 08/14/22 01/20/21 History extended release (Wellbutrin XL) calcium [calcium citrate] 1 tab PO DAILY 04/02/20 08/14/22 Unknown History cholecalciferol (vitamin D3) 50 50 mcg PO DAILY 04/02/20 08/14/22 Unknown History mcg (2,000 unit) capsule ferrous sulfate 325 mg (65 mg 325 mg PO DAILY 04/02/20 08/14/22 Unknown History iron) tablet (Feosol) multivitamin (Daily Multi-Vitamin 1 tab PO DAILY 04/02/20 08/14/22 Unknown History tablet) primidone 50 mg tablet 50 mg PO BEDTIME 04/02/20 08/14/22 Unknown History escitalopram oxalate 20 mg tablet 20 mg PO DAILY 07/30/20 08/14/22 01/20/21 History (Lexapro) bupropion HCl 150 mg 24 hr tablet, 150 mg PO QAM 08/06/21 08/14/22 Unknown History extended release metformin 500 mg tablet 500 mg PO DAILY 08/06/21 08/14/22 Unknown History propranolol 60 mg capsule,24 60 mg PO DAILY 09/19/21 08/14/22 Unknown History hr,extended release lorazepam 0.5 mg tablet 0.5 mg PO ONCE PRN Anxiety 06/24/22 08/14/22 Unknown History Exam Exam Date and Time: August 14, 2022 0950 Height,Weight and Vital Signs: Height 5 ft Weight 111.13 kg Last Vital Signs Temp 97.5 F 08/14/22 09:15 Pulse 66 08/14/22 09:15 Resp 18 08/14/22 09:15 BP 147/77 H 08/14/22 09:15 Pulse Ox 98 08/14/22 09:15 O2 Del Method Room Air 08/14/22 09:15 Airway Mallampati Class: II (edentulous) TM Dist: >3cm Neck ROM: Full Heart: rrr Lungs: cta Assessment and Plan Assessment Anesthesia Assessment: Anesthesia Plan Discussed and Chart Reviewed Final Anesthetic Review Family History of Problems with Anesthesia: No History of Problems with Anesthesia: No NPO: Yes ASA Class: III Final Preanesthetic Review: No Changes in Pt Med Stat, Meds/Allgs Chart Reviewed and Consent Obtained/Reviewed Patient Risk: Intermediate Procedure Risk: Intermediate Anesthetic Plan Anesthetic Plan: MAC: Disposition: Standard PACU
--- NOTE | 2022-08-14 09:51 | MHC.SHP ---
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 Relevant Family History (Specify if Yes): Yes Relevant Social History: Tobacco Use (Former smoker) Present Medications: see Short Stay Collaborative assessment Medical History: Significant History (Chronic GERD Depression, major, recurrent Hip pain, right Hypertension, essential Nail fungus) History of Previous Operations: Relevant previous surgery/procedure and date(s) (Chronic GERD Depression, major, recurrent Hip pain, right Hypertension, essential Nail fungus) Allergies: Allergies Allergy/AdvReac Type Severity Reaction Status Date / Time sucralfate [Carafate] Allergy Unknown hives Verified 08/12/22 16:37 Review of Systems Sugical H&P ROS: Negative: Constitution, Cardiovascular, Respiratory and Gastrointestinal Exam Surgical H&P Exam: Normal: Heart, Normal: Lungs, Normal: Extremities and Normal: Abdomen Plan Diagnosis/Plan: Unchanged I have reviewed the history and physical and performed a pertinent physical examination on my patient. No changes have occurred unless specified. Time Spent With Patient Time: Total time managing care of this patient today ____ minutes.
[2022-08-14] MEDS: Lactated Ringers 1,000 ML 50 ML IVCONT (09:56)
--- NOTE | 2022-08-14 11:54 | W.PM.OPN ---
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 Colon polyps, diverticulosis, hemorrhoids Endoscopist:? Paulo Gary MD Anesthesia:?MAC Consent: Indications for the procedure and potential complications of bleeding, perforation, reaction to medications and missed diagnosis were discussed with the patient and informed consent was obtained. Instrument: Olympus PCF H 190 L variable stiffness pediatric colonoscope Monitoring: Vital signs and clinical assessment, intermittent blood pressure monitoring, continuous EKG monitoring, Pulse oximetry and Carbon Dioxide monitoring were done throughout the procedure. Please see anesthesia flowsheet. Colon withdrawl time was 20 minutes. Procedure: The patient was placed in the left lateral decubitis position and pre-procedure medications were administered. After a digital rectal examination of the ano-rectum, the video colonoscope was inserted into the rectum and advanced through the colon to the cecum. The colonoscope was slowly withdrawn in a retrograde panoramic fashion and the colon mucosa was carefully examined including a retroflexed view of the rectum. Findings and interventions are described below. Procedure Difficulty: Without difficulty Findings: Terminal Ileum: Not evaluated Cecum: Normal Ascending Colon: A 10-12 mm sessile polyp in the proximal AC removed with a hot snare Transverse Colon: A 10-12 mm sessile polyp removed with a hot snare Descending Colon: Moderate diverticulosis Sigmoid Colon: A 10 mm sessile polyp - removed with a cold snare and polyp was not retrieved. Moderate diverticulosis Rectum: Normal Ano-rectum: Moderate internal hemorrhoids and perianal skin tags Colon preparation: Excellent Impression and Post Procedure Diagnosis: Colonoscopy Findings: Three medium sized polyps removed Moderate diverticulosis seen in the left colon Moderate hemorrhoids on retroflexed exam. Plan: Await pathology results Patient has an appointment on 08/28/22 in the GI [facility] with Jodie Brown NP. 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 Above findings were reviewed with the patient and colon polyps and diverticulosis handouts were given in the discharge area
[2022-08-14 11:59] VITALS: BP 100/75; PULSE 55; RESP 16; TEMP 36.6; O2SAT 95
[2022-08-14 12:14] VITALS: BP 124/66; PULSE 68; RESP 16; O2SAT 97
--- NOTE | 2022-08-14 12:14 | ECG_ITS ---
Test Reason : AFIB Blood Pressure : / mmHG Vent. Rate : 059 BPM Atrial Rate : 059 BPM P-R Int : 178 ms QRS Dur : 142 ms QT Int : 430 ms P-R-T Axes : 043 044 -17 degrees QTc Int : 425 ms Sinus bradycardia Right bundle branch block T wave abnormality, consider inferior ischemia Abnormal ECG When compared with ECG of 02-MAY-2022 02:03, Premature atrial complexes are no longer Present Referred By: Jose Luis Elizabeth Electronically Signed By:Eric Flores
--- NOTE | 2022-08-14 12:17 | PC.NURSE ---
appreciated irregularity in md mirza. Robiiri to bedside and see following ecg order. otherwise patient asymptomatic
[2022-08-14 12:29] VITALS: BP 128/59; PULSE 81; RESP 16; O2SAT 96
[2022-08-14 12:45] VITALS: BP 117/51; PULSE 60; RESP 20; TEMP 36.3; O2SAT 97
== END 2022-08-14 12:35 | disposition home or self-care (01) ==
PROVIDERS: PCP Internal Medicine; Visit Provider Internal Medicine Gastroenterology
PROC: 0DJD8ZZ Inspection of Lower Intestinal Tract, Via Natural or Artificial Opening Endoscopic (ICD-10-PCS; CPT 45378; principal; 2022-08-14 10:10)
DX: Z12.11 Encounter for screening for malignant neoplasm of colon (principal); Z80.0 Family history of malignant neoplasm of digestive organs; Z15.09 Genetic susceptibility to other malignant neoplasm; D12.2 Benign neoplasm of ascending colon; D12.3 Benign neoplasm of transverse colon; K63.5 Polyp of colon; K57.30 Diverticulosis of large intestine without perforation or abscess without bleeding; K64.8 Other hemorrhoids; K21.9 Gastro-esophageal reflux disease without esophagitis; I10 Essential (primary) hypertension; F33.9 Major depressive disorder, recurrent, unspecified; J44.9 Chronic obstructive pulmonary disease, unspecified; I89.0 Lymphedema, not elsewhere classified; J98.4 Other disorders of lung; E66.01 Morbid (severe) obesity due to excess calories; Z68.42 Body mass index [BMI] 45.0-49.9, adult; Z79.899 Other long term (current) drug therapy; Z88.8 Allergy status to other drugs, medicaments and biological substances; Z87.891 Personal history of nicotine dependence; Z98.84 Bariatric surgery status
CPT/HCPCS: 45385; 88305; 93005

== ENCOUNTER → 2022-08-20 07:50 | Outpatient (REF) | payer MEDICARE, MEDICAID, SELFPAY ==
--- NOTE | 2022-08-20 07:52 | CA_ITS ---
Acquisition Time: 2022-08-20 08:16:38 Total Exercise Time: 00:01:39 Test Indications: ABN EKG, RBBB Medications: SEE H Protocol: RIVKA Max HR: 162 BPM 111% of Pred: 145 BPM Max BP: 164/068 mmHG Max Work Load: 3.9 METS Exercise stress test exercise 1 min 39 sec of Rivka protocol, with request to stop due to moderate SOB, no chest discomfort, with freq PACs and short atrial runs and non-conductive PACs in recovery, with normotensive reponse to exercise, with non-diagnostic EKGs due to artifact and suboptimal heart rate. In recovery breathing improved Test reviewed with Dr. Payton. Will order a pharmacological stress test for further evaluation. Referred By: Bruce Jimenez Overread By: INEZ VUONG
== END ==
LOC: HO.CARD 07:50
PROVIDERS: PCP Internal Medicine; Visit Provider Internal Medicine
DX: I25.10 Atherosclerotic heart disease of native coronary artery without angina pectoris (principal)
CPT/HCPCS: 93017

== ENCOUNTER → 2022-08-28 08:01 | Outpatient (BNVA) | payer MEDICARE, MEDICAID, SELFPAY | PROVIDERS: PCP Internal Medicine; Visit Provider Nurse Practitioner | DX: D12.6 Benign neoplasm of colon, unspecified (principal) | CPT/HCPCS: 99212 ==

== ENCOUNTER 2022-09-11 13:45 | Outpatient (REF) | payer MEDICARE, MEDICAID, SELFPAY ==
--- NOTE | 2022-09-11 14:41 | PFT_ITS ---
Forced vital capacity 64%, FEV1 73%, FEV1/FVC ratio is 84. [id number] 93%. MVV 75%. Post bronchodilator therapy, there is no change. Total lung capacity 84% and residual volume 90%. Diffusion capacity 87% CONCLUSION: Based on the decreased FVC and FEV1 volumes, there is indication of [id number] restrictive pattern. However, the total lung capacity and residual volume are normal and diffusion capacity is normal. So decreased flow volumes may be just due to decreased effort. Except for possible mild to moderate restrictive disorder, there is no other significant abnormality. Clinical correlation should be used. MD DORON [place]/MODL / [id number]
== END 2022-09-11 13:46 | disposition home or self-care (01) ==
LOC: HO.RESP 13:45
PROVIDERS: PCP Internal Medicine; Visit Provider Internal Medicine
DX: G47.34 Idiopathic sleep related nonobstructive alveolar hypoventilation (principal); J44.9 Chronic obstructive pulmonary disease, unspecified; J98.4 Other disorders of lung; I87.303 Chronic venous hypertension (idiopathic) without complications of bilateral lower extremity
CPT/HCPCS: 94010; 94727; 94729

== ENCOUNTER → 2022-09-17 09:14 | Outpatient (REF) | payer MEDICARE, MEDICAID, SELFPAY ==
--- NOTE | ~2022-09-17 | NM_ITS ---
Lexiscan Myocardial perfusion study Indication: Abnormal echocardiogram, RBBB, assess for ischemia Technique: The patient was brought in for a Lexiscan perfusion study on 09/17/2022 and was injected 0.4 mg of Lexiscan intravenously. Within a minute of this injection 40 mCi of sestamibi was given intravenously. Images were obtained using the SPECT gamma camera interlaced with the gating device. Images were obtained in supine position. Resting perfusion study was performed on 09/18/2022. Patient was administered 40 mCi of sestamibi intravenously at rest. Images were then obtained in supine position. Images were processed with the software and compared side to side in short axis, horizontal long axis and vertical long axis views. Total DLP 136mGy-cm. Findings: Raw acquisition reviewed. The stress perfusion study showed no significant perfusion abnormality. Both uncorrected as well as CT attenuation corrected images were reviewed. The gated study shows normal LV systolic function with calculated LVEF of 73%. LV cavity is normal in size. The gated study shows normal wall thickening and contraction of segments. Resting study shows no significant perfusion abnormality. Gating at rest reveals normal wall motion with ejection fraction at 71%. The findings are consistent with no clear reversible or fixed perfusion defects. NM/NM cardiolite stress test Impression: 1. Myocardial perfusion imaging study shows likely normal myocardial perfusion. 2. Gated LVEF is > 70% during stress and rest. 3. Transient ischemic dilatation not present. EKG component of the test reported separately.
--- NOTE | 2022-09-17 09:20 | CA_ITS ---
Acquisition Time: 2022-09-17 09:46:23 Total Exercise Time: 00:02:00 Test Indications: Abnormal ECG, ABN ECHO, SOB Medications: Protocol: LEXISCAN Max HR: 104 BPM 71% of Pred: 145 BPM Max BP: 136/058 mmHG Max Work Load: 1.0 METS Pharmacological stress test with Lexiscan injection while sitting and kicking her legs, without anginal sympotoms, with isolated PVCs and PACs and short atrial runs, with normotensive response to injection, with nondiagnostic EKG for ischemia. Nuclear images pending. Test reviewed with Dr. Jimenez. Referred By: Sandrita Gomez Overread By: SANDRITA GOMEZ
== END ==
LOC: HO.CARD 09:14
PROVIDERS: PCP Internal Medicine; Visit Provider Nurse Practitioner Family
DX: R94.39 Abnormal result of other cardiovascular function study (principal)
CPT/HCPCS: 78452; 93017; A9500; J0280; J2785

== ENCOUNTER → 2022-10-08 08:39 | Outpatient (BNVA) | payer MEDICARE, MEDICAID, SELFPAY | PROVIDERS: PCP Internal Medicine; Referring Provider Internal Medicine; Visit Provider Internal Medicine | DX: I45.10 Unspecified right bundle-branch block (principal); I89.0 Lymphedema, not elsewhere classified; I35.9 Nonrheumatic aortic valve disorder, unspecified; I34.81 Nonrheumatic mitral (valve) annulus calcification; E66.01 Morbid (severe) obesity due to excess calories; Z68.42 Body mass index [BMI] 45.0-49.9, adult | CPT/HCPCS: 99212 ==

== ENCOUNTER 2022-10-16 09:00 | Outpatient (RCR) | payer MEDICARE, MEDICAID, SELFPAY | END 2023-01-25 16:00 | disposition home or self-care (01) | LOC: HO.WCC 09:00 | PROVIDERS: PCP Internal Medicine; Visit Provider Surgery | DX: L97.112 Non-pressure chronic ulcer of right thigh with fat layer exposed (principal); Q82.0 Hereditary lymphedema; Z79.84 Long term (current) use of oral hypoglycemic drugs; Z79.899 Other long term (current) drug therapy; Z87.891 Personal history of nicotine dependence; Z96.641 Presence of right artificial hip joint | CPT/HCPCS: 11043; 17250; 87070; 87073; 87205; 97597; 99212; 99213 ==

== ENCOUNTER → 2022-10-27 08:51 | Outpatient (BNVA) | payer MEDICARE, MEDICAID, SELFPAY | PROVIDERS: PCP Internal Medicine; Visit Provider Internal Medicine | DX: J98.4 Other disorders of lung (principal); G47.34 Idiopathic sleep related nonobstructive alveolar hypoventilation | CPT/HCPCS: 94618; 99212 ==

== ENCOUNTER 2022-11-16 10:14 | Outpatient (AMB) | payer MEDICARE, MEDICAID, SELFPAY ==
--- NOTE | 2022-11-16 10:44 | MHC.OFFVIS ---
Intake Intake Visit Reasons: OV-RT hip Debridement check Intake Note: Mayra is a 77 year old female who presents today for a follow up of her right hip. Right ANASTACIO I&D 12/24/21. Patient reports that she has an open wound on the right hip since september. She reports that she is having draining from the the wound as well, the fluid has been clear but today it appeared brown in color. She has been seen at wound care where she has had the wound packed. She is not currently on any ABX. Allergies sucralfate [Carafate] Allergy (Unknown, Verified 10/27/22 09:08) hives HPI OV-RT hip Debridement check HPI Details Mayra is a 77 year old woman who presents for a wound check of her right hip. She has a Hx of right ANASTACIO I&D, DOS: 12/24/21. She says in 09/2022 she developed an open wound on her hip that has been draining clear fluid. She denies ay hip pain. She denies any fever or chills. She is not taking Abx at this time. [facility] Medical History Chronic GERD COPD (chronic obstructive pulmonary disease) Depression, major, recurrent Hip pain, right Hypertension, essential Lymphedema Nail fungus Nocturnal hypoxemia Restrictive lung disease Stasis edema of both lower extremities Surgical History History of bilateral tubal ligation History of cataract extraction History of tonsillectomy History of total hip arthroplasty S/P gastric bypass Family History Father No problems noted. Mother Alzheimer's disease Maternal Grandmother Cancer Maternal Grandfather No problems noted. Paternal Grandfather No problems noted. Paternal Grandmother No problems noted. Maternal Aunt Cancer Sister Colon cancer Son No problems noted. Daughter No problems noted. Social History Housing: Other Housing Other:: Mobile Home Are you a primary patient centered care specialist to a significant other at home: No Do you presently have visiting nurse or other home services: No Alcohol intake: never Patient Tobacco Use Status: Former Tobacco user Quit Date: 2012 Years Smoked: 40 +/- e-Cigarette/Vaping Use: Currently Using service: No Current occupational status: retired and other Current occupation: right handed Cognitive needs: No Hearing needs: No Vision needs: No Review of Systems Const All systems reviewed & are unremarkable except as noted in HPI and below Physical Exam Const General: no acute distress and alert Orientation/consciousness: patient oriented x3 Neuro General: patient oriented x3 Extrem Other: Right Hip: Dime-sized seroma over right hip, continues to drain Psych Appearance: grossly normal Affect: normal affect Attitude: cooperative Assessment & Plan Assessment & Plan (1) Open wound of right hip and thigh: Code(s): S71.001A - Unspecified open wound, right hip, initial encounter; S71.101A - Unspecified open wound, right thigh, initial encounter Plan: This is a 77 year old woman with a right hip seroma, S/P right ANASTACIO I&D, DOS: 12/24/21. This continues to drain but she has no signs or symptoms of infection. This is chronic and I operated on this once without sustained benefit although at the time it seemed like it was helpful. I think the most appropriate next step would be to have general surgery involvement to treat this seroma. Intraoperatively I can aspirate the hip to ensure no ongoing infection but this has not and is not presenting as an infection would. I discussed this with her. I will reach out of my general surgery colleagues and contact the patient with a timeline. I did discuss the risks of surgery as well as the benefits and alternatives. She expressed understanding. (2) History of total hip arthroplasty: Comment: 02/26/15 right total hip - dr roldan, 03/15/2015 R hip ANASTACIO revision Code(s): Z96.649 - Presence of unspecified artificial hip joint Plan Scribed for Kishor Roldan MD by Max Antoine, medical dosimetrist, on 11/16/22 at 11:00 AM, EST. Coding Level of Care Code Est Pt Level 4 (80567) Diagnoses Open wound of right hip and thigh S71.001A; S71.101A History of total hip arthroplasty Z96.649
== END 2022-11-16 11:02 | disposition home or self-care (01) ==
PROVIDERS: PCP Internal Medicine; Visit Provider Orthopaedic Surgery
DX: S71.001A Unspecified open wound, right hip, initial encounter (principal); S71.101A Unspecified open wound, right thigh, initial encounter; Z96.649 Presence of unspecified artificial hip joint
CPT/HCPCS: 99214

== ENCOUNTER → 2022-11-16 10:14 | Outpatient (BNVA) | payer MEDICARE, MEDICAID, SELFPAY | PROVIDERS: PCP Internal Medicine; Visit Provider Orthopaedic Surgery | DX: S71.001A Unspecified open wound, right hip, initial encounter (principal); X58.XXXA Exposure to other specified factors, initial encounter; Y93.9 Activity, unspecified; Y92.9 Unspecified place or not applicable; Y99.8 Other external cause status; M25.551 Pain in right hip; Z96.641 Presence of right artificial hip joint | CPT/HCPCS: 99212 ==

== ENCOUNTER 2022-12-11 09:43 | Outpatient (AMB) | payer MEDICARE, MEDICAID, SELFPAY ==
[2022-12-11 09:57] VITALS: BMI 47.3
--- NOTE | 2022-12-11 09:57 | MHC.OFFVIS ---
Intake Vital Signs 12/11/22 09:57 Height 5 ft Weight 242 lb BMI 47.3 Intake Visit Reasons: OV - Right ANASTACIO I&D 12/24/21 - Gen Surg Discussion Intake Note: Mayra is a 77 year old female who presents today for a follow up of her right hip. Right ANASTACIO I&D 12/24/21. At patients last appointment treatment for seroma was to refer to general surgery. States she has been seen with general surgery due to no one reaching out to her . She presents today to discuss further care. Allergies sucralfate [Carafate] Allergy (Unknown, Verified 12/11/22 10:03) hives HPI OV - Right ANASTACIO I&D 12/24/21 - Gen Surg Discussion HPI Details Mayra is a 77 year old woman who presents for a wound check of her right hip. She has a Hx of right ANASTACIO I&D, DOS: 12/24/21. At her last appointment we discussed having general surgery involvement to treat this seroma, while intraoperatively I can aspirate the hip to ensure no ongoing infection. She says she has not been seen or contacted by general surgery since her last appointment. She says her wound continues to drain She denies any hip pain. She denies any fever or chills. She is not taking Abx at this time. [facility] Medical History Chronic GERD COPD (chronic obstructive pulmonary disease) Depression, major, recurrent Hip pain, right Hypertension, essential Lymphedema Nail fungus Nocturnal hypoxemia Restrictive lung disease Stasis edema of both lower extremities Surgical History History of bilateral tubal ligation History of cataract extraction History of tonsillectomy History of total hip arthroplasty S/P gastric bypass Family History Father No problems noted. Mother Alzheimer's disease Maternal Grandmother Cancer Maternal Grandfather No problems noted. Paternal Grandfather No problems noted. Paternal Grandmother No problems noted. Maternal Aunt Cancer Sister Colon cancer Son No problems noted. Daughter No problems noted. Social History Housing: Other Housing Other:: Mobile Home Are you a primary adult caregiver to a significant other at home: No Do you presently have visiting nurse or other home services: No Alcohol intake: never Patient Tobacco Use Status: Former Tobacco user Quit Date: 2012 Years Smoked: 40 +/- e-Cigarette/Vaping Use: Currently Using service: No Current occupational status: retired and other Current occupation: right handed Cognitive needs: No Hearing needs: No Vision needs: No Review of Systems Const All systems reviewed & are unremarkable except as noted in HPI and below Physical Exam Vital Signs: BMI result Body Mass Index 47.3 Const General: no acute distress and alert Orientation/consciousness: patient oriented x3 Neuro General: patient oriented x3 Extrem Other: Right Hip: Dime-sized seroma over right hip, continues to drain Psych Appearance: grossly normal Affect: normal affect Attitude: cooperative Assessment & Plan Assessment & Plan (1) Open wound of right hip and thigh: Code(s): S71.001A - Unspecified open wound, right hip, initial encounter; S71.101A - Unspecified open wound, right thigh, initial encounter Plan: This is a 77 year old woman with a right hip seroma, S/P right ANASTACIO I&D, DOS: 12/24/21. This continues to drain but she has no signs or symptoms of infection. This is chronic and I operated on this once without sustained benefit although at the time it seemed like it was helpful. I have spoken with my colleagues in general surgery and she should be seen by Dr. Mosquera sometime next week. Intraoperatively I can aspirate the hip to ensure no ongoing infection but this has not and is not presenting as an infection would. I discussed this with her, and she is in agreement. She will continue to follow with wound care. She can contact the clinic if she is not contacted by general surgery in the next few days. (2) History of total hip arthroplasty: Comment: 02/26/15 right total hip - dr rodlan, 03/15/2015 R hip ANASTACIO revision Code(s): Z96.649 - Presence of unspecified artificial hip joint Plan Scribed for Kishor Roldan MD by Max Antoine, medical research assistant, on 12/11/22 at 10:15 AM, EST. Coding Level of Care Code Est Pt Level 3 (68586) Diagnoses Open wound of right hip and thigh S71.001A; S71.101A History of total hip arthroplasty Z96.649
== END 2022-12-11 10:22 | disposition home or self-care (01) ==
PROVIDERS: PCP Internal Medicine; Visit Provider Orthopaedic Surgery
DX: S71.001A Unspecified open wound, right hip, initial encounter (principal); S71.101A Unspecified open wound, right thigh, initial encounter; Z96.641 Presence of right artificial hip joint
CPT/HCPCS: 99213

== ENCOUNTER → 2022-12-11 09:43 | Outpatient (BNVA) | payer MEDICARE, MEDICAID, SELFPAY | PROVIDERS: PCP Internal Medicine; Visit Provider Orthopaedic Surgery | DX: S71.001D Unspecified open wound, right hip, subsequent encounter (principal); S71.101D Unspecified open wound, right thigh, subsequent encounter; Z96.649 Presence of unspecified artificial hip joint | CPT/HCPCS: 99212 ==

== ENCOUNTER 2022-12-17 10:18 | Outpatient (AMB) | payer MEDICARE, MEDICAID, SELFPAY ==
--- NOTE | 2022-12-17 10:33 | A.OFFVIS_ITS ---
Intake Vital Signs 12/17/22 10:39 Height 5 ft Weight 245 lb BMI 47.8 BP 153/71 H Blood Pressure Location Lt brachial Position Sitting Pulse 73 Intake Visit Reasons: seroma right hip Intake Note: Patient is seen in office for evaluation and treatment of a seroma of the right hip. Patient c/o: had hip replacement 8 yrs ago, started leaking on 09/29 is seen wound care one a week, has nurse come in and change dressing/packing every other day, denies redness, nausea, vomit, or other concerns, currently not on antibiotics Implementation Manager Required: No Accompanied by: Self / Same As Patient Allergies sucralfate [Carafate] Allergy (Unknown, Verified 12/17/22 10:33) hives Medication List - Last Reconciled 12/17/22 by Vini Mosquera MD albuterol sulfate 90 mcg/actuation (ProAir HFA) 1 inh inhalation QID PRN 30 days aripiprazole 10 mg PO DAILY ascorbic acid (vitamin C) 2 grams PO DAILY bupropion HCl (Wellbutrin XL) 300 mg PO QAM bupropion HCl 150 mg PO QAM calcium (calcium citrate) 1 tab PO DAILY cholecalciferol (vitamin D3) 50 mcg PO DAILY escitalopram oxalate (Lexapro) 20 mg PO DAILY ferrous sulfate (Feosol) 325 mg PO DAILY hydrochlorothiazide 25 mg PO DAILY 90 days lorazepam 0.5 mg PO ONCE PRN metformin 500 mg PO DAILY multivitamin (Daily Multi-Vitamin tablet) 1 tab PO DAILY pantoprazole 40 mg PO DAILY 90 days primidone 50 mg PO BEDTIME propranolol ER 60 mg PO DAILY HPI HPI Comments History of Present Illness Details 77-year-old female patient status post right hip replacement approximately 8 years ago presenting now with a chronic wound of the right hip approximately 4-5 months duration. This was previously debrided by Dr. Roldan last year breast subsequently returned. She is currently [facility] with [facility] nurses changing the dressings on a daily basis. Current dressings include silver alginate and ABD dressings. She feels the wound has not improved in several months. [facility] Medical History Chronic GERD COPD (chronic obstructive pulmonary disease) Depression, major, recurrent Hip pain, right Hypertension, essential Lymphedema Nail fungus Nocturnal hypoxemia Restrictive lung disease Stasis edema of both lower extremities Surgical History History of bilateral tubal ligation History of cataract extraction History of tonsillectomy History of total hip arthroplasty S/P gastric bypass Family History Father No problems noted. Mother Alzheimer's disease Maternal Grandmother Cancer Maternal Grandfather No problems noted. Paternal Grandfather No problems noted. Paternal Grandmother No problems noted. Maternal Aunt Cancer Sister Colon cancer Son No problems noted. Daughter No problems noted. Social History Housing: Other Housing Other:: Mobile Home Are you a primary dog day care attendant to a significant other at home: No Do you presently have visiting nurse or other home services: No Alcohol intake: never Patient Tobacco Use Status: Former Tobacco user Quit Date: 2012 Years Smoked: 40 +/- e-Cigarette/Vaping Use: Currently Using service: No Current occupational status: retired and other Current occupation: right handed Cognitive needs: No Hearing needs: No Vision needs: No Review of Systems Const All systems reviewed & are unremarkable except as noted in HPI and below Musc Reports joint swelling Skin/Breast Reports skin ulcer and Reports sores Physical Exam Vital Signs: Last Vital Signs Pulse 73 12/17/22 10:39 BP 153/71 H 12/17/22 10:39 BMI result Body Mass Index 47.8 Const General: no acute distress Nutritional Appearance: well nourished Orientation/consciousness: patient oriented x3 Limitations: no limitations HEENT Head: Yes normocephalic and Yes atraumatic Ears: hearing grossly normal bilaterally Resp Effort & Inspection: normal respiratory effort, no audible wheezes, no cough and no respiratory distress GI Inspection: Yes normal to inspection and Yes Abdominal panniculus present Palpation (GI): Soft to palpation Skin Other: Warm, dry, no rashes Neuro General: patient oriented x3 Extrem Other: Right hip with an open wound measuring approximately 1.5 cm in diameter with granulation tissue noted at the surface. Gentle probing with a cotton swab reveals a tract which extends upward and slightly anterior measured 6 cm deep. The track appears narrow and no foreign body is palpable at the base. Upper/lower leg/hip images: 1. Site of open wound right hip Assessment & Plan Assessment & Plan (1) Open wound of right lower leg with complication: Code(s): S81.801A - Unspecified open wound, right lower leg, initial encounter Plan 77-year-old female patient with a persistently draining ulcer of the right hip not responding to local wound care. Patient has previously undergone debridement with some healing however the wound subsequently returned at the same location. Hip infection is not a consideration at this time. I discussed the options including wide debridement with wound VAC placement to allow healing from the bottom up. She would require admission to the hospital for several days following the surgery. She was subsequently be discharged to home with a portable unit. Dressings were need to be changed 3 times weekly with visiting nurses. After discussion of the procedure, risks, and alternatives, she consents to debridement of right hip wound and wound VAC placement. This will be scheduled at her earliest convenience. Coding Level of Care Code New Pt Level 4 (34754) Diagnoses Open wound of right lower leg with complication S81.801A
[2022-12-17 10:39] VITALS: BP 153/71; PULSE 73; BMI 47.8
== END 2022-12-17 11:27 | disposition home or self-care (01) ==
PROVIDERS: PCP Internal Medicine; Referring Provider Orthopaedic Surgery; Visit Provider Surgery
DX: S81.801A Unspecified open wound, right lower leg, initial encounter (principal); L89.219 Pressure ulcer of right hip, unspecified stage
CPT/HCPCS: 99214

== ENCOUNTER → 2022-12-17 10:18 | Outpatient (BNVA) | payer MEDICARE, MEDICAID, SELFPAY | PROVIDERS: PCP Internal Medicine; Referring Provider Orthopaedic Surgery; Visit Provider Surgery ==

== ENCOUNTER 2023-01-25 06:17 | Inpatient (IN) | payer MEDICARE, MEDICAID, SELFPAY ==
[2023-01-18 12:07] VITALS: BP 143/66; PULSE 61; RESP 18; O2SAT 96; BMI 47.6
--- NOTE | 2023-01-18 12:16 | P.CONAN_ITS ---
Documented by User: Rosario Ramirez NP 01/18/23 12:31 HPI - Anesthesia Eval Consult details Narrative: 77yo F for Right Debridement of hip wound w/ wound vac placement s/p Total Hip 2014 and revision s/p hip debridement 2021 with GA-ETT 7 Cardiology eval 10/2022 post testing. Stable for 2 year f/u. Pulmo eval 10/2022 for SOB. R/t deconditioning. PFT and 6 min walk test WNL. PRN f/u only No recent illness No CP. SOB at baseline r/t weight/deconditioning GERD well controlled on ppi Non nicotine vape daily PMFSH Active Problems Active Problems: All Active Problems (Updated 01/18/23 @ 11:58 by Azalia Paiz RN) Tubular adenoma of colon (Acute) Abnormal stress ECG with treadmill (Acute) Pain management contract agreement (Acute) Open wound of right lower leg with complication (Acute) Post-COVID chronic dyspnea (Acute) Ex-smoker (Acute) Shortness of breath (Acute) Mitral annular calcification (Acute) Aortic valve calcification (Acute) Lymphedema (Acute) Morbid obesity due to excess calories (Acute) Right bundle branch block (Acute) Premature atrial contractions (Acute) Peripheral vascular disease (Acute) Cough (Acute) Influenza A H1N1 infection (Acute) Hospital discharge follow-up (Acute) Cellulitis of right leg (Acute) Varicose veins of right lower extremity with inflammation (Acute) Edema (Acute) Medicare annual wellness visit, subsequent (Acute) Open wound of right hip and thigh (Acute) Traumatic seroma of right thigh (Acute) Postprocedural seroma of skin and subcutaneous tissue following other procedure (Acute) Enterococcus faecalis infection (Acute) Abscess (Acute) Hip pain, right (Acute) Family history of colon cancer (Acute) Colon cancer screening (Acute) Encounter for general adult medical examination with abnormal findings (Acute) Morbid obesity due to excess calories (Acute) Pre-op evaluation (Acute) Obesity (Acute) Nocturnal hypoxemia (Acute) COPD (chronic obstructive pulmonary disease) (Acute) Restrictive lung disease (Acute) Lymphedema (Acute) Stasis edema of both lower extremities (Acute) S/P gastric bypass (Acute) History of total hip arthroplasty (Acute) Hip pain, right (Acute) Nail fungus (Acute) Chronic GERD (Acute) Depression, major, recurrent (Acute) Hypertension, essential (Acute) Past Medical History Medical History (Updated 01/18/23 @ 11:58 by Azalia Paiz RN) Arthritis Renal calculi Post-influenza syndrome Tremor Peripheral vascular disease Right bundle branch block (RBBB) Aortic valve calcification Mitral annular calcification Nocturnal hypoxemia COPD (chronic obstructive pulmonary disease) Restrictive lung disease Lymphedema Stasis edema of both lower extremities Hip pain, right Nail fungus Chronic GERD Depression, major, recurrent Hypertension, essential Family History Family History Father No problems noted. Mother Alzheimer's disease Maternal Grandmother Cancer Maternal Grandfather No problems noted. Paternal Grandfather No problems noted. Paternal Grandmother No problems noted. Maternal Aunt Cancer Sister Colon cancer Son No problems noted. Daughter No problems noted. Family history of problems with anesthesia: No (Sister long to wake) Surgical History Surgical History (Updated 01/18/23 @ 11:59 by Azalia Paiz RN) History of surgery H/O colonoscopy S/P gastric bypass History of cataract extraction History of total hip arthroplasty History of bilateral tubal ligation History of tonsillectomy History of Problems with Anesthesia: No Social History Social History Household Members Other:: daughter Housing: Other Housing Other:: mobile home Are you a primary healthcare representative to a significant other at home: No Do you presently have visiting nurse or other home services: Yes (VNA, fuel assistance) Alcohol intake: never Patient Tobacco Use Status: Former Tobacco user Quit Date: age 67 Tobacco use type: Cigarette Years Smoked: 38 e-Cigarette/Vaping Use: Currently Using Use of substances other than those prescribed or required for medical reasons: No Have you been hit, kicked, punched, or otherwise hurt by someone within the past year? If so, by whom?: No Are you DNR?: No Advance Directives: Yes Advance Directives Information Provided: Yes Advance Directives on File: Yes Advance Directives Date on File: 03/13/15 Recently lost weight without trying: No Eating poorly because of decreased appetite: No Nutrition Risks: Surgical patient >75years Poor oral hygiene: No (edentulous-no dentures) service: No Current occupational status: retired and other Current occupation: right handed Cognitive needs: No Hearing needs: No Vision needs: No Meds Allergies Allergy/AdvReac Type Severity Reaction Status Date / Time sucralfate [Carafate] Allergy Intermediate hives Verified 01/18/23 12:06 NSAIDS (Non-Steroidal AdvReac Intermediate cannot Verified 01/18/23 12:32 Anti-Inflamma take due to gastric bypass history Home Medications Medication Instructions Recorded Confirmed Last Taken Type ascorbic acid (vitamin C) 1,000 mg 1,000 mg PO QAM 04/02/20 01/18/23 01/24/23 History tablet bupropion HCl 300 mg 24 hr tablet, 300 mg PO QAM 04/02/20 01/18/23 01/24/23 History extended release (Wellbutrin XL) cholecalciferol (vitamin D3) 50 50 mcg PO QPM 04/02/20 01/18/23 01/24/23 History mcg (2,000 unit) capsule ferrous sulfate 325 mg (65 mg 325 mg PO QPM 04/02/20 01/18/23 Unknown History iron) tablet (Feosol) multivitamin (Daily Multi-Vitamin 1 tab PO QPM 04/02/20 01/18/23 01/24/23 History tablet) primidone 50 mg tablet 50 mg PO BEDTIME 04/02/20 01/18/23 01/24/23 History escitalopram oxalate 20 mg tablet 20 mg PO QAM 07/30/20 01/18/23 01/24/23 History (Lexapro) bupropion HCl 150 mg 24 hr tablet, 150 mg PO QAM 08/06/21 01/18/23 01/24/23 History extended release metformin 500 mg tablet 500 mg PO QPM weight loss 08/06/21 01/18/23 01/24/23 History propranolol 60 mg capsule,24 60 mg PO BEDTIME 09/19/21 01/18/23 01/24/23 History hr,extended release lorazepam 0.5 mg tablet 0.5 mg PO DAILY PRN Anxiety 06/24/22 01/18/23 01/24/23 History aripiprazole 10 mg tablet 10 mg PO QAM 12/17/22 01/18/23 01/24/23 History calcium cit 250 mg-mag 40 mg-D3 1 tab PO QAM 01/18/23 01/18/23 01/24/23 History 125 unit-zinc 3.75 mg-copra processor-fortino tablet (Calcium Citrate Plus) hydrochlorothiazide 25 mg tablet 25 mg PO QAM 01/18/23 01/18/23 01/24/23 History pantoprazole 40 mg tablet,delayed 40 mg PO QPM 01/18/23 01/18/23 01/24/23 History release Exam Exam Date and Time: January 18, 2023 1216 Height,Weight and Vital Signs: Height 5 ft Weight 110.677 kg Last Vital Signs Pulse 61 01/18/23 12:07 Resp 18 01/18/23 12:07 BP 143/66 H 01/18/23 12:07 Pulse Ox 96 01/18/23 12:07 O2 Del Method Room Air 01/18/23 12:07 Narrative Narrative: Per 10/2022 Cardiac Office visit Note: Recent EKG with sinus rhythm at 85/Min; premature atrial complexes; right bundle-branch block pattern. In the prior EKG from 2018, no clear evidence of right bundle-branch block. Echocardiogram with LVEF of 65-70%; grade 2 diastolic dysfunction; moderate aortic valve calcification but no significant dysfunction; moderate mitral annular calcification. Myocardial perfusion imaging study shows likely normal perfusion. Gated LVEF > 70% during stress and rest. Home sleep study is negative for SOULEYMANE. PFT 09/2022 Forced vital capacity 64%, FEV1 73%, FEV1/FVC ratio is 84. SAY07-75 93%. MVV 75%. Post bronchodilator therapy, there is no change. Total lung capacity 84% and residual volume 90%. Diffusion capacity 87% CONCLUSION: Based on the decreased FVC and FEV1 volumes, there is indication of [id number] restrictive pattern. However, the total lung capacity and residual volume are normal and diffusion capacity is normal. So decreased flow volumes may be just due to decreased effort. Except for possible mild to moderate restrictive disorder, there is no other significant abnormality. Clinical correlation should be used. Airway Mallampati Class: I TM Dist: >3cm Neck ROM: Full Loose/Missing/Broken Teeth: Yes (endentulous) Heart: RRR Lungs: CTAB Assessment and Plan Assessment Anesthesia Assessment: Anesthesia Plan Discussed and PAT Visit Final Anesthetic Review Family History of Problems with Anesthesia: No (Sister long to wake) History of Problems with Anesthesia: No Documented by User: Sandip Cowart MD 01/25/23 07:25 [facility] Past Medical History Medical History (Updated 01/18/23 @ 11:58 by Azalia Paiz RN) Arthritis Renal calculi Post-influenza syndrome Tremor Peripheral vascular disease Right bundle branch block (RBBB) Aortic valve calcification Mitral annular calcification Nocturnal hypoxemia COPD (chronic obstructive pulmonary disease) Restrictive lung disease Lymphedema Stasis edema of both lower extremities Hip pain, right Nail fungus Chronic GERD Depression, major, recurrent Hypertension, essential Family History Family History Father No problems noted. Mother Alzheimer's disease Maternal Grandmother Cancer Maternal Grandfather No problems noted. Paternal Grandfather No problems noted. Paternal Grandmother No problems noted. Maternal Aunt Cancer Sister Colon cancer Son No problems noted. Daughter No problems noted. Surgical History Surgical History (Updated 01/18/23 @ 11:59 by Azalia Paiz RN) History of surgery H/O colonoscopy S/P gastric bypass History of cataract extraction History of total hip arthroplasty History of bilateral tubal ligation History of tonsillectomy Social History Social History Household Members Other:: daughter Housing: Other Housing Other:: mobile home Are you a primary healthcare representative to a significant other at home: No Do you presently have visiting nurse or other home services: Yes (VNA, fuel assistance) Alcohol intake: never Patient Tobacco Use Status: Former Tobacco user Quit Date: age 67 Tobacco use type: Cigarette Years Smoked: 38 e-Cigarette/Vaping Use: Currently Using Use of substances other than those prescribed or required for medical reasons: No Have you been hit, kicked, punched, or otherwise hurt by someone within the past year? If so, by whom?: No Are you DNR?: No Advance Directives: Yes Advance Directives Information Provided: Yes Advance Directives on File: Yes Advance Directives Date on File: 03/13/15 Recently lost weight without trying: No Eating poorly because of decreased appetite: No Nutrition Risks: Surgical patient >75years Poor oral hygiene: No (edentulous-no dentures) service: No Current occupational status: retired and other Current occupation: right handed Cognitive needs: No Hearing needs: No Vision needs: No Meds Allergies Allergy/AdvReac Type Severity Reaction Status Date / Time sucralfate [Carafate] Allergy Intermediate hives Verified 01/18/23 12:06 NSAIDS (Non-Steroidal AdvReac Intermediate cannot Verified 01/18/23 12:32 Anti-Inflamma take due to gastric bypass history Home Medications Medication Instructions Recorded Confirmed Last Taken Type ascorbic acid (vitamin C) 1,000 mg 1,000 mg PO QAM 04/02/20 01/18/23 01/24/23 History tablet bupropion HCl 300 mg 24 hr tablet, 300 mg PO QAM 04/02/20 01/18/23 01/24/23 History extended release (Wellbutrin XL) cholecalciferol (vitamin D3) 50 50 mcg PO QPM 04/02/20 01/18/23 01/24/23 History mcg (2,000 unit) capsule ferrous sulfate 325 mg (65 mg 325 mg PO QPM 04/02/20 01/18/23 Unknown History iron) tablet (Feosol) multivitamin (Daily Multi-Vitamin 1 tab PO QPM 04/02/20 01/18/23 01/24/23 History tablet) primidone 50 mg tablet 50 mg PO BEDTIME 04/02/20 01/18/23 01/24/23 History escitalopram oxalate 20 mg tablet 20 mg PO QAM 07/30/20 01/18/23 01/24/23 History (Lexapro) bupropion HCl 150 mg 24 hr tablet, 150 mg PO QAM 08/06/21 01/18/23 01/24/23 History extended release metformin 500 mg tablet 500 mg PO QPM weight loss 08/06/21 01/18/23 01/24/23 History propranolol 60 mg capsule,24 60 mg PO BEDTIME 09/19/21 01/18/23 01/24/23 History hr,extended release lorazepam 0.5 mg tablet 0.5 mg PO DAILY PRN Anxiety 06/24/22 01/18/23 01/24/23 History aripiprazole 10 mg tablet 10 mg PO QAM 12/17/22 01/18/23 01/24/23 History calcium cit 250 mg-mag 40 mg-D3 1 tab PO QAM 01/18/23 01/18/23 01/24/23 History 125 unit-zinc 3.75 mg-copra processor-fortino tablet (Calcium Citrate Plus) hydrochlorothiazide 25 mg tablet 25 mg PO QAM 01/18/23 01/18/23 01/24/23 History pantoprazole 40 mg tablet,delayed 40 mg PO QPM 01/18/23 01/18/23 01/24/23 History release Assessment and Plan Final Anesthetic Review NPO: Yes ASA Class: IV Final Preanesthetic Review: No Changes in Pt Med Stat, Meds/Allgs Chart Reviewed, Consent Obtained/Reviewed and Anes Risks/Benef Reviewed Patient Risk: High Procedure Risk: Intermediate Anesthetic Plan Anesthetic Plan: GA and Agree w/ Assess. and Plan Disposition: Standard PACU
[2023-01-18 13:34] LABS: Hematocrit 37.4 % (37.0-47.0); Hemoglobin 11.6 g/dl (12.0-16.0); Mean Corpuscular Hemoglobin 30.1 pg (27.0-33.0); Mean Corpuscular Volume 96.9 fL (80.0-98.0); Mean Platelet Volume 8.7 fL (9.4-12.3); Platelet Count 308 X10*3/uL (160-400); Red Blood Count 3.86 X10*6/uL (4.20-5.50); Red Cell Distribution Width 13.4 % (11.0-16.0); White Blood Count 7.3 X10*3/uL (4.8-10.8)
[2023-01-18 14:48] LABS: Anion Gap 13 (12-20); Blood Urea Nitrogen 12 mg/dL (9-16); Calcium 9.5 mg/dL (8.4-10.2); Carbon Dioxide 30 mmol/L (22-29); Chloride 103 mmol/L (96-108); Creatinine Clr Calc Pharmacy 72.1; Estimated Glomerular Filt Rate > 60; Glucose Random 92 mg/dL (60-115); Potassium 4.5 mmol/L (3.3-5.1); Sodium 141 mmol/L (135-145)
[2023-01-25] VITALS (12 sets, daily range): BP systolic 114–148; BP diastolic 46–70; PULSE 47–75; RESP 16–20; TEMP 36.1–36.5; O2SAT 94–100; BMI 50.4
--- OUTSIDE RECORDS SUMMARY | 2023-01-25 06:20 | XMS_ITS | Continuity of Care Document ---
Author Name Unknown Organization [facility] Address [address] [place] [address]- Care Team Providers Care Correctional Counselor Name Role Phone Luis SHELDON, Kayla Primary Care Physician [phone] Encounter [facility] [place] Date(s): 07/10/22 - 12/07/[address] [address]- Encounter Diagnosis Hereditary lymphedema(Final) - Discharge Disposition: A-D/C Home Attending Physician: Kayla Smith MD Admitting Physician: Kayla Smith MD Referring Physician: Kayla Smith MD Patient Care team information Care Team Personnel Name: Kayla Smith MD Position: [facility] Physician - Primary Care Member Role: PCP Address: Address: [address] [place] [address]- Care Team Related Persons Name: VAN DIETZ Address: home [address] [place] [address]
--- OUTSIDE RECORDS SUMMARY | 2023-01-25 06:20 | XMS_ITS | Continuity of Care Document ---
Author Name Unknown Organization [facility] Address [address] [place] [address]- Care Team Providers Care Rolling Machine Operator Name Role Phone Luis SHELDON, Kayla Primary Care Physician Encounter [facility] [place] Date(s): 07/10/22 - 08/09/[address] [address]- Attending Physician: Admtr, Ar8 Admitting Physician: Admtr, Ar8 Referring Physician: Admtr, Ar8 Patient Care team information Care Team Personnel Name: Kalya Smith MD Position: [facility] Physician (General Medicine) Member Role: PCP Address: Address: [address] [place] [address]- Care Team Related Persons Name: VAN DIETZ Address: home [address] [place] [id number]
--- OUTSIDE RECORDS SUMMARY | 2023-01-25 06:20 | XMS_ITS | Continuity of Care Document ---
Author Name Unknown Organization [facility] Address [address] [place] [address]- Care Team Providers Care Global Compensation Manager Name Role Phone Luis SHELDON, Kayla Primary Care Physician [place] [facility] [place] 10/07/22 - 11/06/[address] [address]- Attending Physician: Ramon Reyna Admitting Physician: Admanita, Ar8 Referring Physician: Admtr, Ar8 Patient Care team information Care Team Personnel Name: Kayla Smith MD Position: [facility] Physician - Primary Care Member Role: PCP Address: Address: [address] [place] [address]- Care Team Related Persons Name: VAN DIETZ Address: home [address] [place] [id number]
--- OUTSIDE RECORDS SUMMARY | 2023-01-25 06:20 | XMS_ITS | Continuity of Care Document ---
Author Name Unknown Organization [facility] Address [address] [address]- Care Team Providers Care Coat Checker Name Role Phone Luis SHELDON, Kayla Primary Care Physician [phone] Encounter [facility] Date(s): 06/18/22 - 07/18/22 [facility] [address] [place] [address]- Patient Care team information Care Team Personnel Name: Luis SHELDON, Kayla Position: [facility] Physician (General Medicine) Member Role: PCP Address: Address: [address] [place] [address]- Care Team Related Persons Name: VAN DIETZ Address: home [address] [place] [address]
--- OUTSIDE RECORDS SUMMARY | 2023-01-25 06:20 | XMS_ITS | Continuity of Care Document ---
Author Name Unknown Organization [facility] Address [address] [place] [address]- Care Team Providers Care Electrical Assembler Name Role Phone Luis SHELDON, Kayla Primary Care Physician En[place] [facility] [place] Date(s): 08/26/22 - 09/25/[address] [address]- Attending Physician: Ramon Reyna Admitting Physician: Ramon Reyna Referring Physician: Admtr, Ar8 Patient Care team information Care Team Personnel Name: Luis SHELDON, Kayla Position: [facility] Physician (General Medicine) Member Role: PCP Address: Address: [address] [place] [address]- Care Team Related Persons Name: VAN DIETZ Address: home [address] [place] [id number]
--- NOTE | 2023-01-25 06:24 | ECG_ITS ---
Test Reason : PRE OP Blood Pressure : / mmHG Vent. Rate : 054 BPM Atrial Rate : 054 BPM P-R Int : 176 ms QRS Dur : 138 ms QT Int : 442 ms P-R-T Axes : 040 051 000 degrees QTc Int : 419 ms Sinus bradycardia Right bundle branch block Abnormal ECG When compared with ECG of 14-AUG-2022 12:27, No significant change was found Referred By: Jose Luis Elizabeth Electronically Signed By:NATHALIA GARZA
--- NOTE | 2023-01-25 06:25 | PHA.MEDREC ---
Pharmacy Consult ? Medication Reconciliation Pharmacy has completed the medication reconciliation. Reviewed med rec done by nursing
[2023-01-25] MEDS: Lactated Ringers 1,000 ML 100 ML IVCONT ×3 (06:52→22:28)
--- NOTE | 2023-01-25 07:23 | P.CONAN_ITS ---
[facility] Active Problems Active Problems: All Active Problems (Updated 01/18/23 @ 11:58 by Azalia Paiz RN) Tubular adenoma of colon (Acute) Abnormal stress ECG with treadmill (Acute) Pain management contract agreement (Acute) Open wound of right lower leg with complication (Acute) Post-COVID chronic dyspnea (Acute) Ex-smoker (Acute) Shortness of breath (Acute) Mitral annular calcification (Acute) Aortic valve calcification (Acute) Lymphedema (Acute) Morbid obesity due to excess calories (Acute) Right bundle branch block (Acute) Premature atrial contractions (Acute) Peripheral vascular disease (Acute) Cough (Acute) Influenza A H1N1 infection (Acute) Hospital discharge follow-up (Acute) Cellulitis of right leg (Acute) Varicose veins of right lower extremity with inflammation (Acute) Edema (Acute) Medicare annual wellness visit, subsequent (Acute) Open wound of right hip and thigh (Acute) Traumatic seroma of right thigh (Acute) Postprocedural seroma of skin and subcutaneous tissue following other procedure (Acute) Enterococcus faecalis infection (Acute) Abscess (Acute) Hip pain, right (Acute) Family history of colon cancer (Acute) Colon cancer screening (Acute) Encounter for general adult medical examination with abnormal findings (Acute) Morbid obesity due to excess calories (Acute) Pre-op evaluation (Acute) Obesity (Acute) Nocturnal hypoxemia (Acute) COPD (chronic obstructive pulmonary disease) (Acute) Restrictive lung disease (Acute) Lymphedema (Acute) Stasis edema of both lower extremities (Acute) S/P gastric bypass (Acute) History of total hip arthroplasty (Acute) Hip pain, right (Acute) Nail fungus (Acute) Chronic GERD (Acute) Depression, major, recurrent (Acute) Hypertension, essential (Acute) Past Medical History Medical History Arthritis Renal calculi Post-influenza syndrome Tremor Peripheral vascular disease Right bundle branch block (RBBB) Aortic valve calcification Mitral annular calcification Nocturnal hypoxemia COPD (chronic obstructive pulmonary disease) Restrictive lung disease Lymphedema Stasis edema of both lower extremities Hip pain, right Nail fungus Chronic GERD Depression, major, recurrent Hypertension, essential Family History Family History Father No problems noted. Mother Alzheimer's disease Maternal Grandmother Cancer Maternal Grandfather No problems noted. Paternal Grandfather No problems noted. Paternal Grandmother No problems noted. Maternal Aunt Cancer Sister Colon cancer Son No problems noted. Daughter No problems noted. Family history of problems with anesthesia: No (Sister long to wake) Surgical History Surgical History History of surgery H/O colonoscopy S/P gastric bypass History of cataract extraction History of total hip arthroplasty History of bilateral tubal ligation History of tonsillectomy History of Problems with Anesthesia: No Social History Social History Household Members Other:: daughter Housing: Other Housing Other:: mobile home Are you a primary animal care technician to a significant other at home: No Do you presently have visiting nurse or other home services: Yes ([facility], fuel assistance) Alcohol intake: never Patient Tobacco Use Status: Former Tobacco user Quit Date: age 67 Tobacco use type: Cigarette Years Smoked: 38 e-Cigarette/Vaping Use: Currently Using Use of substances other than those prescribed or required for medical reasons: No Have you been hit, kicked, punched, or otherwise hurt by someone within the past year? If so, by whom?: No Are you DNR?: No Advance Directives: Yes Advance Directives Information Provided: Yes Advance Directives on File: Yes Advance Directives Date on File: 03/13/15 Recently lost weight without trying: No Eating poorly because of decreased appetite: No Nutrition Risks: Surgical patient >75years Poor oral hygiene: No (edentulous-no dentures) service: No Current occupational status: retired and other Current occupation: right handed Cognitive needs: No Hearing needs: No Vision needs: No Meds Allergies Allergy/AdvReac Type Severity Reaction Status Date / Time sucralfate [Carafate] Allergy Intermediate hives Verified 01/18/23 12:06 NSAIDS (Non-Steroidal AdvReac Intermediate cannot Verified 01/18/23 12:32 Anti-Inflamma take due to gastric bypass history Active Medications: Current Medications Albuterol Sulfate (Albuterol Sulfate (0.083%) 2.5 Mg/3 Ml Vial.Neb) 2.5 mg INHALE ONCE PRN PRN Reason: Shortness of Breath/Wheezing Lactated Ringer's (Lr) 1,000 mls @ 100 mls/hr IVCONT .Q10H [facility] Last Admin: 01/25/23 06:52 Dose: 100 mls/hr Home Medications Medication Instructions Recorded Confirmed Last Taken Type ascorbic acid (vitamin C) 1,000 mg 1,000 mg PO QAM 04/02/20 01/18/23 01/24/23 Hi story tablet bupropion HCl 300 mg 24 hr tablet, 300 mg PO QAM 04/02/20 01/18/23 01/24/23 History extended release (Wellbutrin XL) cholecalciferol (vitamin D3) 50 50 mcg PO QPM 04/02/20 01/18/23 01/24/23 History mcg (2,000 unit) capsule ferrous sulfate 325 mg (65 mg 325 mg PO QPM 04/02/20 01/18/23 Unknown History iron) tablet (Feosol) multivitamin (Daily Multi-Vitamin 1 tab PO QPM 04/02/20 01/18/23 01/24/23 History tablet) primidone 50 mg tablet 50 mg PO BEDTIME 04/02/20 01/18/23 01/24/23 History escitalopram oxalate 20 mg tablet 20 mg PO QAM 07/30/20 01/18/23 01/24/23 History (Lexapro) bupropion HCl 150 mg 24 hr tablet, 150 mg PO QAM 08/06/21 01/18/23 01/24/23 History extended release metformin 500 mg tablet 500 mg PO QPM weight loss 08/06/21 01/18/23 01/24/23 History propranolol 60 mg capsule,24 60 mg PO BEDTIME 09/19/21 01/18/23 01/24/23 History hr,extended release lorazepam 0.5 mg tablet 0.5 mg PO DAILY PRN Anxiety 06/24/22 01/18/23 01/24/23 History aripiprazole 10 mg tablet 10 mg PO QAM 12/17/22 01/18/23 01/24/23 History calcium cit 250 mg-mag 40 mg-D3 1 tab PO QAM 01/18/23 01/18/23 01/24/23 History 125 unit-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 tablet (Calcium Citrate Plus) hydrochlorothiazide 25 mg tablet 25 mg PO QAM 01/18/23 01/18/2323 History pantoprazole 40 mg tablet,delayed 40 mg PO QPM 01/18/23 01/18/23 01/24/23 History release Exam Exam Date and Time: January 25, 2023722 Height,Weight and Vital Signs: Height 5 ft Weight 110.677 kg Last Vital Signs Temp 96.9 F 01/25/23 06:51 Pulse 51 01/25/23 06:51 Resp 16 01/25/23 06:51 BP 148/60 H 01/25/23 06:51 Pulse Ox 97 01/25/23 06:51 O2 Del Method Room Air 01/25/23 06:51 Pertinent Lab Results Pertinent Lab Results: Laboratory Tests 01/18/23 12:52 WBC 7.3 RBC 3.86 L Hgb 11.6 L Hct 37.4 MCV 96.9 MCH 30.1 MCHC 31.0 RDW 13.4 Plt Count 308 MPV 8.7 L Absolute Nucleated RBC 0.000 Nucleated RBC % (auto) 0.0 Sodium 141 Potassium 4.5 D Chloride 103 Carbon Dioxide 30 H Anion Gap 13 BUN 12 Creatinine 0.75 Estim Creat Clear Calc 72.1 Estimated GFR > 60 Random Glucose 92 Calcium 9.5 D Airway Mallampati Class: I TM Dist: >3cm Neck ROM: Full Denture: Upper and Lower Heart: RRR Lungs: CTA Assessment and Plan Final Anesthetic Review Family History of Problems with Anesthesia: No (Sister long to wake) History of Problems with Anesthesia: No ASA Class: III Final Preanesthetic Review: Meds/Allgs Chart Reviewed, Consent Obtained/Reviewed and Anes Risks/Benef Reviewed Patient Risk: Intermediate Procedure Risk: Low Anesthetic Plan Anesthetic Plan: GA Disposition: Standard PACU
--- NOTE | 2023-01-25 07:29 | P.HPSUR_ITS ---
Pre-Procedural Eval Section A Date of Service: 01/25/23 The patient is an INPATIENT: No Changes since office visit: Yes Patient answered all questions; No Cold of Flu in the past 2 weeks, No New Medical Problems and No Changes in Medication The History & Physical has been completed within 30 days and I have reviewed it.: No Section B Chief Complaint: Unspecified open wound, right lower leg, initial e Details of Present Illness: no change in right hip wound Relevant Family History (Specify if Yes): No Relevant Social History: None Present Medications: see Short Stay Collaborative assessment Medical History: Significant History ( COPD, lymphedema, restrictive lung disease, status post total hip arthroplasty right) History of Previous Operations: Relevant previous surgery/procedure and date(s) ( total hip arthroplasty) Allergies: Allergies Allergy/AdvReac Type Severity Reaction Status Date / Time sucralfate [Carafate] Allergy Intermediate hives Verified 01/18/23 12:06 NSAIDS (Non-Steroidal AdvReac Intermediate cannot Verified 01/18/23 12:32 Anti-Inflamma take due to gastric bypass history Review of Systems Sugical H&P ROS: Negative: Constitution, Cardiovascular, Respiratory, Neurological, Psychiatric, Hem-Onc, Allergic/Immunologic, Gastrointestinal, Genitourinary, Musculoskeletal, Integumentary, Endocrine and Eyes/Ears/N ose/Throat Exam Surgical H&P Exam: Normal: HEENT, Normal: Heart, Normal: Lungs, Normal: Extremities, Normal: Abdomen and Normal: Neurological and Significant Findings: Skin ( open wound right hip) Plan Diagnosis/Plan: Unchanged I have reviewed the history and physical and performed a pertinent physical examination on my patient. No changes have occurred unless specified. Time Spent With Patient Time: Total time managing care of this patient today ____ minutes.
[2023-01-25] MEDS: ceFAZolin Sodium/Dextrose,Iso 2 GM/50 ML PIGGYBACK IV (07:32)
[2023-01-25] MEDS: Acetaminophen 1,000 MG/100 ML PIGGYBACK 400 MG IV ×3 (08:00→17:29)
--- NOTE | 2023-01-25 08:50 | P.OP_ITS ---
Operative Note Operative Note Date of Service: 01/25/23 Narrative: Preoperative diagnosis:Nonhealing wound right hip Postoperative diagnosis: same Procedure: wide debridement nonhealing wound right hip, wound VAC placement Surgeon: Vini Mosquera MD Dean Of Graduate Studies: RYAN Thomas Anesthesia: general endotracheal Indications for procedure: 77-year-old female patient with a prior history of right hip replacement now with a nonhealing wound of the right hip. Patient was found to have a deep wound extending approximately 15 cm into this deep subcutaneous tissue heading towards the right hip. No foreign body could be identified within the open wound. Operative findings: Deep nonhealing ulcer with the apparent fistulous track extending towards hip but without any fragment of bone or foreign body at base. Specimen: Skin ulceration right hip Estimated blood loss: 25 mL Complications: none Procedure details: patient was brought to the OR placed in a supine position. After administering general anesthesia patient's right hip was prepped with Betadine and draped in a sterile fashion. A surgical time-out was called the consent confirmed. Patient received preoperative antibiotics and Venodyne boots were in place. Local anesthesia was infiltrated around the previous open wound. Elliptical incision was then created with a scalpel carried out through subcutaneous tissue. Electrocautery was then used to dissect around the fistulous track extending down approximately 15 cm into the deep subcutaneous tissue towards the right hip. A curette was then used to clean any non vital tissue within the fistulous track. This was then suctioned and irrigated with copious amounts of saline solution. Stasis was assured using electrocautery. A 15 cm long by 7 cm wide and 3 cm deep black sponge was then created and inserted into the deep ulcer. The op site was then covered over the spine and this was connected to the wound VAC with continuous 125 mmHg suction. Patient tolerated the procedure well presented sponge, instrument, needle counts reported as correct. The patient was transferred to PACU in stable condition.
[2023-01-25 11:50] LABS: Glucose, Whole Blood 117 mg/dL (60-115)
--- NOTE | 2023-01-25 12:25 | HO.PM.IMCN ---
History of Present Illness Data of Consult Service Date: 01/25/23 Requesting physician: Vini Mosquera Primary Care Provider: MD TARUN Valverde Reason for consult: medical management 77 year old female with history of COPD, restrictive lung disease secondary to morbid obesty with BMI >50, htn, mood disorder, chronic venous stasis dermatitis, lymphedema, PVD, RBBB, admitted to general surgery with consult placed to hospitalist service for medical H&P. The patient is s/p debridement of nonhealing wound of the right hip. She reports pain is well controlled and has no complaints at this time. She is a former smoker quit 10 years ago and denies any alcohol use or illicit drug use. Vital stable at this time, no hypoxia. Review of Systems Review of Systems: General: No fevers, malaise, unintentional weight loss HEENT: No blurred vision, diplopia. No sore throat, nasal congestion, rhinorrhea, sinus pain, ear pain Cardiovascular: No chest pain, palpitations, or leg edema Respiratory: No shortness of breath, wheezing, cough GI: No abdominal pain, nausea, vomiting, diarrhea, constipation, melena, hematochezia : No dysuria, hematuria, increased urinary frequency, decreased urinary output MSK: No myalgia, back pain Neuro: No headaches, weakness, paresthesias Skin: No rashes or lesions [facility] Medical History Arthritis Renal calculi Post-influenza syndrome Tremor Peripheral vascular disease Right bundle branch block (RBBB) Aortic valve calcification Mitral annular calcification Nocturnal hypoxemia COPD (chronic obstructive pulmonary disease) Restrictive lung disease Lymphedema Stasis edema of both lower extremities Hip pain, right Nail fungus Chronic GERD Depression, major, recurrent Hypertension, essential Family History Father No problems noted. Mother Alzheimer's disease Maternal Grandmother Cancer Maternal Grandfather No problems noted. Paternal Grandfather No problems noted. Paternal Grandmother No problems noted. Maternal Aunt Cancer Sister Colon cancer Son No problems noted. Daughter No problems noted. Surgical History History of surgery H/O colonoscopy S/P gastric bypass History of cataract extraction History of total hip arthroplasty History of bilateral tubal ligation History of tonsillectomy Social History Household Members: Children Household Members Other:: daughter Housing: House Housing Other:: mobile home Are you a primary healthcare network pricing consultant to a significant other at home: No Do you presently have visiting nurse or other home services: Yes Alcohol intake: never Patient Tobacco Use Status: Former Tobacco user Quit Date: age 67 Tobacco use type: Cigarette Years Smoked: 38 Smoked in Last 30 Days: No e-Cigarette/Vaping Use: Currently Using Patient Interested in Nicotine Replacement: No Patient Given Instructions on How to Stop Smoking: No Second Hand Smoke Exposure: No Use of substances other than those prescribed or required for medical reasons: No Currently Displaying Signs/Symptoms of Drug Intoxication Withdrawal: No Any prior treatment program specific to substance use: No Have you been hit, kicked, punched, or otherwise hurt by someone within the past year? If so, by whom?: No Do you feel safe in your current relationship?: Yes Is there a partner from a previous relationship who is making you feel unsafe now?: No Are you made to feel afraid or neglected: No Are you DNR?: No Advance Directives: Yes Advance Directives Information Provided: Yes Advance Directives on File: Yes Advance Directives Date on File: 03/13/15 Do you have thoughts of harming others: None Do you have a plan to hurt others: No Plan Recently lost weight without trying: No Eating poorly because of decreased appetite: No Nutrition Risks: No Nutritional Risk Patient : No : No Poor oral hygiene: No service: No Current occupational status: retired and other Current occupation: right handed Cognitive needs: No Hearing needs: No Vision needs: No Meds Allergies Allergy/AdvReac Type Severity Reaction Status Date / Time sucralfate [Carafate] Allergy Intermediate hives Verified 01/18/23 12:06 NSAIDS (Non-Steroidal AdvReac Intermediate cannot Verified 01/18/23 12:32 Anti-Inflamma take due to gastric bypass history Active Medications: Current Medications Albuterol Sulfate (Albuterol Sulfate 90 Mcg 8 Gm Inhaler) 1 puff INHALE QID PRN PRN Reason: shortness of breath or wheezing Aripiprazole (Aripiprazole 10 Mg Tablet) 10 mg PO DAILY [facility] Bupropion HCl (Bupropion Hcl Xl 150 Mg Tab.Er.24h) 150 mg PO DAILY [facility] Bupropion HCl (Bupropion Hcl Xl 300 Mg Tab.Er.24h) 300 mg PO DAILY [facility] Dextrose (Dextrose 50 % 25 Gm/50 Ml Syringe) 25 gm IVPUSH Q15M PRN; Protocol PRN Reason: per Hypoglycemia Standing Ord. Escitalopram Oxalate (Escitalopram Oxalate 20 Mg Tablet) 20 mg PO DAILY [facility] Glucose (Glucose Gel 15 Gm Gel..Gram.) 15 gm PO Q15M PRN; Protocol PRN Reason: per Hypoglycemia Standing Ord. Hydrochlorothiazide (Hydrochlorothiazide 25 Mg Tablet) 25 mg PO DAILY [facility]; Protocol Hydromorphone HCl (Hydromorphone Hcl 0.5 Mg/0.5 Ml Syringe) 0.5 mg IVPUSH Q3H PRN; Protocol PRN Reason: Pain, Severe (Pain Scale 7-10) Lactated Ringer's (Lr) 1,000 mls @ 100 mls/hr IVCONT .Q10H [facility] Last Admin: 01/25/23 06:52 Dose: 100 mls/hr Acetaminophen (Ofirmev) 1,000 mg in 100 mls @ 400 mls/hr IV Q6H [facility] Stop: 01/26/23 05:38 Insulin Human Lispro (Insulin Lispro 100 Unit/Ml 3 Ml Vial) 0 unit SUBCUT QIDACHS [facility]; Protocol Stop: 01/26/23 07:52 Last Admin: 01/25/23 11:54 Dose: Not Given Lorazepam (Lorazepam 0.5 Mg Tablet) 0.5 mg PO DAILY PRN PRN Reason: Anxiety Multivitamins/Vitamin C (Multivitamin Tablet) 1 tab PO BEDTIME [facility] Omeprazole (Omeprazole 20 Mg Capsule.Dr) 20 mg PO DAILY@1630 [facility] Ondansetron HCl (Ondansetron Hcl 4 Mg/2 Ml Vial) 4 mg IVPUSH QID PRN PRN Reason: Nausea Oxycodone HCl (Oxycodone Hcl Immed Release 5 Mg Tablet) 5 mg PO Q6H PRN PRN Reason: Pain, Moderate(Pain Scale 4-6) Primidone (Primidone 50 Mg Tablet) 50 mg PO BEDTIME [facility] Propranolol HCl (Propranolol Hcl La 60 Mg Cap.Sa.24h) 60 mg PO BEDTIME [facility]; Protocol Vitamin D (Cholecalciferol (Vitamin D3) 25 Mcg Tablet) 50 mcg PO BEDTIME [facility] Home Medications Medication Instructions Recorded Confirmed Last Taken Type ascorbic acid (vitamin C) 1,000 mg 1,000 mg PO QAM 04/02/20 01/18/23 01/24/23 History tablet bupropion HCl 300 mg 24 hr tablet, 300 mg PO QAM 04/02/20 01/18/23 01/24/23 History extended release (Wellbutrin XL) cholecalciferol (vitamin D3) 50 50 mcg PO QPM 04/02/20 01/18/23 01/24/23 History mcg (2,000 unit) capsule ferrous sulfate 325 mg (65 mg 325 mg PO QPM 04/02/20 01/18/23 Unknown History iron) tablet (Feosol) multivitamin (Daily Multi-Vitamin 1 tab PO QPM 04/02/20 01/18/23 01/24/23 History tablet) primidone 50 mg tablet 50 mg PO BEDTIME 04/02/20 01/18/23 01/24/23 History escitalopram oxalate 20 mg tablet 20 mg PO QAM 07/30/20 01/18/23 01/24/23 History (Lexapro) bupropion HCl 150 mg 24 hr tablet, 150 mg PO QAM 08/06/21 01/18/23 01/24/23 History extended release metformin 500 mg tablet 500 mg PO QPM weight loss 08/06/21 01/18/23 01/24/23 History propranolol 60 mg capsule,24 60 mg PO BEDTIME 09/19/21 01/18/23 01/24/23 History hr,extended release lorazepam 0.5 mg tablet 0.5 mg PO DAILY PRN Anxiety 06/24/22 01/18/23 01/24/23 History aripiprazole 10 mg tablet 10 mg PO QAM 12/17/22 01/18/23 01/24/23 History calcium cit 250 mg-mag 40 mg-D3 1 tab PO QAM 01/18/23 01/18/23 01/24/23 History 125 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 (Calcium Citrate Plus) hydrochlorothiazide 25 mg tablet 25 mg PO QAM 01/18/23 01/18/23 01/24/23 History pantoprazole 40 mg tablet,delayed 40 mg PO QPM 01/18/23 01/18/23 01/24/23 History release Physical Exam Vital Signs and Narrative: Vital Signs: Last Vital Signs Temp 97.2 F 01/25/23 10:05 Pulse 50 01/25/23 10:35 Resp 20 01/25/23 10:35 BP 128/57 L 01/25/23 10:35 Pulse Ox 100 01/25/23 10:35 O2 Del Method Room Air 01/25/23 10:35 O2 Flow Rate 2 01/25/23 09:35 BMI result Body Mass Index 50.4 Constitutional - Awake and Alert, No apparent distress Eyes - PERRLA, EOMI Cardiovascular - S1S2, RRR, No edema Respiratory - Normal lung expansion, Normal respiratory effort, No respiratory distress, CTA bilaterally Gastrointestinal - NT / ND; +BS; No rebound or guarding Extremities - no calf tenderness bilaterally, no swelling Skin - Warm/Dry. Chronic venous stasis dermatitis bilateral lower extremities Neurological - Alert & oriented x3 Psychological - Appropriate affect Results Labs 01/18/23 12:52 01/18/23 12:52 Labs: Laboratory Results - last 24 hr 01/25/23 11:39 POC Glucose 117 H Assessment and Plan (1) Open wound of right lower leg with complication: Status: Acute Plan 77 year old female with history of COPD, restrictive lung disease secondary to morbid obesty with BMI >50, htn, mood disorder, chronic venous stasis dermatitis, lymphedema, PVD, RBBB, admitted to general surgery with consult placed to hospitalist service for medical H&P. # nonhealing wound right hip -plan per General surgery # COPD/RLD -no acute exacerbation, no hypoxia postoperatively -continue albuterol p.r.n., not on maintenance medications -Encourage IS # mood disorder unspecified -no SI/HI -continue home meds # lymphedema/chronic venous stasis dermatitis -requesting Kunal stockings which are ordered # hypertension -blood pressure stable -resume antihypertensives # morbid obesity with BMI greater than 50 -weight loss efforts encouraged with healthy diet and regular exercise as tolerated -hold metformin, resume on dc (on to manage weight gain r/t psychiatric meds, not diabetic) Thank you for allowing me to participate in this consult. Signing off at this time. Please do not hesitate to call for further questions. Time Spent With Patient Time: Total time managing care of this patient today ____ minutes.
[2023-01-25] MEDS: hydroCHLOROthiazide 25 MG TABLET PO (12:44)
--- NOTE | 2023-01-25 13:40 | MHC.CM.PN ---
PT REPORTS SHE LIVES WITH HER DAUGHTER AND IS INDEPENDENT WITH CARE PT HAS A CANE FOR DME AND SAYS SHE IS ACTIVE WITH [facility] FOR PENITENTIARY/WOUND CARE PT SAYS SHE HAS A HCP SHE COMPLETED WITH AN ATTY NAMING HER DAUGHTER, [id number], HER PRIMARY AGENT PCP: [facility] DELIVERED DCP: HOME RESUME [facility] VIA [facility]SP[facility]
[2023-01-25 17:03] LABS: Glucose, Whole Blood 83 mg/dL (60-115)
[2023-01-25] MEDS: Omeprazole 20 MG CAPSULE.DR PO (17:29)
[2023-01-25] MEDS: Propranolol HCL LA 60 MG CAP.SA.24H PO (19:17)
[2023-01-25] MEDS: Multivitamin TABLET 1 TAB PO (19:17)
[2023-01-25] MEDS: Primidone 50 MG TABLET PO (19:17)
[2023-01-25] MEDS: Cholecalciferol (Vitamin D3) 25 MCG TABLET 50 MCG PO (19:17)
[2023-01-25 21:28] LABS: Glucose, Whole Blood 123 mg/dL (60-115)
[2023-01-26 03:30] VITALS: BP 138/62; PULSE 54; RESP 18; TEMP 36.2; O2SAT 93
[2023-01-26 07:12] VITALS: BP 157/89; PULSE 69; RESP 18; TEMP 36.1; O2SAT 96
[2023-01-26 07:22] LABS: MANUAL DIFF FLAG NO
[2023-01-26 07:26] LABS: Basophils Percent Auto 0.4 % (0-2); Eosinophils Absolute Auto 0.1 X10*3/uL (0.0-0.4); Eosinophils Percent Auto 1.3 % (0-4); Hematocrit 35.5 % (37.0-47.0); Hemoglobin 10.9 g/dl (12.0-16.0); Imm Gran Abs Auto 0.01 X10*3/uL (0.00-0.03); Imm Gran Pct Auto 0.2 % (0.0-0.4); Lymphocytes Absolute Auto 1.5 X10*3/uL (1.2-4.9); Lymphocytes Percent Auto 28.8 % (20-40); Mean Corpuscular HGB Conc 30.7 g/dl (31.0-35.0); Mean Corpuscular Hemoglobin 29.8 pg (27.0-33.0); Mean Platelet Volume 8.9 fL (9.4-12.3); Monocytes Absolute Auto 0.4 X10*3/uL (0.1-1.2); Neutrophils Absolute Auto 3.3 x10*3/uL (2.0-8.3); Neutrophils Percent Auto 62.3 % (45-73); Platelet Count 240 X10*3/uL (160-400); Red Blood Count 3.66 X10*6/uL (4.20-5.50); Red Cell Distribution Width 13.7 % (11.0-16.0); White Blood Count 5.3 X10*3/uL (4.8-10.8)
[2023-01-26 07:40] LABS: Glucose, Whole Blood 101 mg/dL (60-115)
--- NOTE | 2023-01-26 07:48 | PM.PNGS ---
Subjective Subjective Date of Service: 01/26/23 Interval history: Feels well ; denies pain in the right hip. Wound vac in place without airleak. Physical Exam Vital Signs: Vital Signs: Last Vital Signs Temp 97.0 F 01/26/23 07:12 Pulse 69 01/26/23 07:12 Resp 18 01/26/23 07:12 BP 157/89 H 01/26/23 07:12 Pulse Ox 96 01/26/23 07:12 O2 Del Method Room Air 01/26/23 07:12 O2 Flow Rate 2 01/25/23 09:35 BMI result Body Mass Index 50.4 Const: General: comfortable Nutritional Appearance: well nourished Orientation/consciousness: patient oriented x3 Limitations: no limitations Resp: Effort & Inspection: normal respiratory effort Neuro: General: patient oriented x3 Extrem: Other: Right hip wound vac dressing remains intact without leak. Small amount of bloody discharge noted in chamber. Objective Data Active Medications Albuterol Sulfate (Albuterol Sulfate 90 Mcg 8 Gm Inhaler) 1 puff INHALE QID PRN PRN Reason: shortness of breath or wheezing Aripiprazole (Aripiprazole 10 Mg Tablet) 10 mg PO DAILY [facility] Last Admin: 01/25/23 12:44 Dose: Not Given Documented By: DARSHAN Non-Admin Reason: pt took at home Bupropion HCl (Bupropion Hcl Xl 150 Mg Tab.Er.24h) 150 mg PO DAILY [facility] Last Admin: 01/25/23 12:44 Dose: Not Given Documented By: COTLILLIE Non-Admin Reason: pt took at home Bupropion HCl (Bupropion Hcl Xl 300 Mg Tab.Er.24h) 300 mg PO DAILY [facility] Last Admin: 01/25/23 12:44 Dose: Not Given Documented By: COTLILLIE Non-Admin Reason: pt took at home Dextrose (Dextrose 50 % 25 Gm/50 Ml Syringe) 25 gm IVPUSH Q15M PRN; Protocol PRN Reason: per Hypoglycemia Standing Ord. Escitalopram Oxalate (Escitalopram Oxalate 20 Mg Tablet) 20 mg PO DAILY [facility] Last Admin: 01/25/23 12:43 Dose: Not Given Documented By: COTEMA Non-Admin Reason: pt took at home Glucose (Glucose Gel 15 Gm Gel..Gram.) 15 gm PO Q15M PRN; Protocol PRN Reason: per Hypoglycemia Standing Ord. Hydrochlorothiazide (Hydrochlorothiazide 25 Mg Tablet) 25 mg PO DAILY [facility]; Protocol Last Admin: 01/25/23 12:44 Dose: 25 mg Documented By: DARSHAN Hydromorphone HCl (Hydromorphone Hcl 0.5 Mg/0.5 Ml Syringe) 0.5 mg IVPUSH Q3H PRN; Protocol PRN Reason: Pain, Severe (Pain Scale 7-10) Insulin Human Lispro (Insulin Lispro 100 Unit/Ml 3 Ml Vial) 0 unit SUBCUT QIDACHS [facility]; Protocol Stop: 01/26/23 07:52 Last Admin: 01/26/23 07:47 Dose: Not Given Documented By: DARSHAN Non-Admin Reason: No Insulin Coverage Lorazepam (Lorazepam 0.5 Mg Tablet) 0.5 mg PO DAILY PRN PRN Reason: Anxiety Multivitamins/Vitamin C (Multivitamin Tablet) 1 tab PO BEDTIME [facility] Last Admin: 01/25/23 19:17 Dose: 1 tab Documented By: TAMAR Omeprazole (Omeprazole 20 Mg Capsule.Dr) 20 mg PO DAILY@1630 [facility] Last Admin: 01/25/23 17:29 Dose: 20 mg Documented By: DARSHAN Ondansetron HCl (Ondansetron Hcl 4 Mg/2 Ml Vial) 4 mg IVPUSH QID PRN PRN Reason: Nausea Oxycodone HCl (Oxycodone Hcl Immed Release 5 Mg Tablet) 5 mg PO Q6H PRN PRN Reason: Pain, Moderate(Pain Scale 4-6) Primidone (Primidone 50 Mg Tablet) 50 mg PO BEDTIME [facility] Last Admin: 01/25/23 19:17 Dose: 50 mg Documented By: TAMAR Propranolol HCl (Propranolol Hcl La 60 Mg Cap.Sa.24h) 60 mg PO BEDTIME [facility]; Protocol Last Admin: 01/25/23 19:17 Dose: 60 mg Documented By: TAMAR Vitamin D (Cholecalciferol (Vitamin D3) 25 Mcg Tablet) 50 mcg PO BEDTIME [facility] Last Admin: 01/25/23 19:17 Dose: 50 mcg Documented By: TAMAR Labs 01/26/23 06:01 01/18/23 12:52 Labs: Laboratory Results - last 24 hr 01/25/23 01/25/23 01/25/23 11:39 16:51 21:22 MCV MCH MCHC RDW Plt Count MPV Immature Gran % (Auto) Neut % (Auto) Lymph % (Auto) [place]ade % (Auto) Eos % (Auto) Baso % (Auto) Lymph # (Auto) [place] # (Auto) Eos # (Auto) Baso # (Auto) Abs Immat Gran (auto) Absolute Neuts (auto) Absolute Nucleated RBC Nucleated RBC % (auto) POC Glucose 117 H 83 123 H 01/26/23 01/26/23 06:01 07:14 MCV 97.0 MCH 29.8 MCHC 30.7 L RDW 13.7 Plt Count 240 MPV 8.9 L Immature Gran % (Auto) 0.2 Neut % (Auto) 62.3 Lymph % (Auto) 28.8 Meade % (Auto) 7.0 Eos % (Auto) 1.3 Baso % (Auto) 0.4 Lymph # (Auto) 1.5 Meade # (Auto) 0.4 Eos # (Auto) 0.1 Baso # (Auto) 0.0 Abs Immat Gran (auto) 0.01 Absolute Neuts (auto) 3.3 Absolute Nucleated RBC 0.000 Nucleated RBC % (auto) 0.0 POC Glucose 101 Procedures Date of Service Date of Service: 01/26/23 Progress Note: A&P Assessment and plan (1) Open wound of right hip and thigh: Status: Acute Plan Patient tolerated the right hip wound debridement well and the wound vac dressing remains intact without leak. Plan dressing change tomorrow with possible discharge to home. She will need portable wound vac for home with planned vac change on Wednesday, Wednesday, and Fridays with VNA. Time Spent With Patient Time: Total time managing care of this patient today ____ minutes. Quality Stroke Does the patient have a stroke diagnosis?: No VTE Prior VTE?: No VTE Risk Level:: Surgical - moderate VTE Device Contraindication: N/A - Device Ordered VTE Drug Contraindication: Treatment Not Indicated (bloody discharge from wound vac. )
[2023-01-26 07:56] LABS: Anion Gap 12 (12-20); Blood Urea Nitrogen 11 mg/dL (9-16); Calcium 8.6 mg/dL (8.4-10.2); Carbon Dioxide 30 mmol/L (22-29); Chloride 104 mmol/L (96-108); Creatinine Clr Calc Pharmacy 82.3; Estimated Glomerular Filt Rate > 60; Glucose Random 89 mg/dL (60-115); Potassium 3.8 mmol/L (3.3-5.1); Sodium 142 mmol/L (135-145)
[2023-01-26] MEDS: ARIPiprazole 10 MG TABLET PO (08:03)
[2023-01-26] MEDS: hydroCHLOROthiazide 25 MG TABLET PO (08:03)
[2023-01-26] MEDS: Escitalopram Oxalate 20 MG TABLET PO (08:03)
[2023-01-26] MEDS: buPROPion HCl XL 300 MG TAB.ER.24H PO (08:03)
[2023-01-26] MEDS: buPROPion HCl XL 150 MG TAB.ER.24H PO (08:03)
[2023-01-26 11:36] LABS: Glucose, Whole Blood 112 mg/dL (60-115)
--- NOTE | 2023-01-26 11:54 | HO.POSTANES ---
Post Anesthesia Evaluation Post Anesthesia Evaluation Date of Service: 01/26/23 Vital Signs: Vital Signs Temp Pulse Resp BP Pulse Ox O2 Del Method 01/26/23 07:12 97.0 F 69 18 157/89 H 96 Room Air 01/26/23 03:30 97.2 F 54 18 138/62 93 Room Air Anesthesia: General Mental Status: Awake Pain Control: Satisfactory Nausea/Vomiting: None Hydration: Adequate Anesthesia-Related Issues: No Anes. Related Issues
--- NOTE | 2023-01-26 12:51 | MHC.CM.PN ---
DP Wound vac at home. A referral has been sent to [facility]. The Surgical PA is completing the Order form. NA has been sent updated clinical information for [facility]. Discharge is anticipated tomorrow. A family member will provide transport home at discharge.
[2023-01-26 16:00] VITALS: BP 124/60; PULSE 77; RESP 18; TEMP 36.7; O2SAT 95
[2023-01-26] MEDS: Omeprazole 20 MG CAPSULE.DR PO (16:08)
[2023-01-26 16:44] LABS: Glucose, Whole Blood 95 mg/dL (60-115)
[2023-01-26 20:00] VITALS: BP 129/58; PULSE 83; RESP 18; TEMP 36.3; O2SAT 94
[2023-01-26] MEDS: Primidone 50 MG TABLET PO (20:06)
[2023-01-26] MEDS: Multivitamin TABLET 1 TAB PO (20:06)
[2023-01-26] MEDS: Propranolol HCL LA 60 MG CAP.SA.24H PO (20:06)
[2023-01-26] MEDS: Cholecalciferol (Vitamin D3) 25 MCG TABLET 50 MCG PO (20:06)
[2023-01-26 21:22] LABS: Glucose, Whole Blood 97 mg/dL (60-115)
[2023-01-27 03:24] VITALS: BP 120/57; PULSE 70; RESP 16; TEMP 36.1; O2SAT 95
[2023-01-27 07:11] LABS: Glucose, Whole Blood 93 mg/dL (60-115)
[2023-01-27 07:23] VITALS: BP 132/60; PULSE 73; RESP 18; TEMP 36.8; O2SAT 96
[2023-01-27] MEDS: buPROPion HCl XL 150 MG TAB.ER.24H PO (08:19)
[2023-01-27] MEDS: ARIPiprazole 10 MG TABLET PO (08:19)
[2023-01-27] MEDS: hydroCHLOROthiazide 25 MG TABLET PO (08:19)
[2023-01-27] MEDS: buPROPion HCl XL 300 MG TAB.ER.24H PO (08:19)
[2023-01-27] MEDS: Escitalopram Oxalate 20 MG TABLET PO (08:19)
[2023-01-27 11:19] LABS: Glucose, Whole Blood 87 mg/dL (60-115)
--- NOTE | 2023-01-27 11:27 | PM.PNGS ---
Subjective Subjective Date of Service: 01/27/23 Interval history: Feels well. Denies pain. Want to go home. Physical Exam Vital Signs: Vital Signs: Last Vital Signs Temp 98.3 F 01/27/23 07:23 Pulse 73 01/27/23 07:23 Resp 18 01/27/23 07:23 BP 132/60 01/27/23 07:23 Pulse Ox 96 01/27/23 07:23 O2 Del Method Room Air 01/27/23 07:23 O2 Flow Rate 2 01/25/23 09:35 BMI result Body Mass Index 50.4 Const: General: comfortable, no acute distress and alert Orientation/consciousness: patient oriented x3 Resp: Effort & Inspection: normal respiratory effort Skin: Other: right hip wound clean with small amount of granulation at base Neuro: General: patient oriented x3 and moves all extremities Objective Data Active Medications Albuterol Sulfate (Albuterol Sulfate 90 Mcg 8 Gm Inhaler) 1 puff INHALE QID PRN PRN Reason: shortness of breath or wheezing Aripiprazole (Aripiprazole 10 Mg Tablet) 10 mg PO DAILY [facility] Last Admin: 01/27/23 08:19 Dose: 10 mg Documented By: ALEXANDRO Bupropion HCl (Bupropion Hcl Xl 150 Mg Tab.Er.24h) 150 mg PO DAILY [facility] Last Admin: 01/27/23 08:19 Dose: 150 mg Documented By: ALEXANDRO Bupropion HCl (Bupropion Hcl Xl 300 Mg Tab.Er.24h) 300 mg PO DAILY [facility] Last Admin: 01/27/23 08:19 Dose: 300 mg Documented By: ALEXANDRO Dextrose (Dextrose 50 % 25 Gm/50 Ml Syringe) 25 gm IVPUSH Q15M PRN; Protocol PRN Reason: per Hypoglycemia Standing Ord. Escitalopram Oxalate (Escitalopram Oxalate 20 Mg Tablet) 20 mg PO DAILY [facility] Last Admin: 01/27/23 08:19 Dose: 20 mg Documented By: ALEXANDRO Glucose (Glucose Gel 15 Gm Gel..Gram.) 15 gm PO Q15M PRN; Protocol PRN Reason: per Hypoglycemia Standing Ord. Hydrochlorothiazide (Hydrochlorothiazide 25 Mg Tablet) 25 mg PO DAILY [facility]; Protocol Last Admin: 01/27/23 08:19 Dose: 25 mg Documented By: ALEXANDRO Hydromorphone HCl (Hydromorphone Hcl 0.5 Mg/0.5 Ml Syringe) 0.5 mg IVPUSH Q3H PRN; Protocol PRN Reason: Pain, Severe (Pain Scale 7-10) Lorazepam (Lorazepam 0.5 Mg Tablet) 0.5 mg PO DAILY PRN PRN Reason: Anxiety Multivitamins/Vitamin C (Multivitamin Tablet) 1 tab PO BEDTIME [facility] Last Admin: 01/26/23 20:06 Dose: 1 tab Documented By: MAIK Omeprazole (Omeprazole 20 Mg Capsule.Dr) 20 mg PO DAILY@1630 [facility] Last Admin: 01/26/23 16:08 Dose: 20 mg Documented By: COTEMA Ondansetron HCl (Ondansetron Hcl 4 Mg/2 Ml Vial) 4 mg IVPUSH QID PRN PRN Reason: Nausea Oxycodone HCl (Oxycodone Hcl Immed Release 5 Mg Tablet) 5 mg PO Q6H PRN PRN Reason: Pain, Moderate(Pain Scale 4-6) Primidone (Primidone 50 Mg Tablet) 50 mg PO BEDTIME [facility] Last Admin: 01/26/23 20:06 Dose: 50 mg Documented By: MAIK Propranolol HCl (Propranolol Hcl La 60 Mg Cap.Sa.24h) 60 mg PO BEDTIME [facility]; Protocol Last Admin: 01/26/23 20:06 Dose: 60 mg Documented By: MAIK Vitamin D (Cholecalciferol (Vitamin D3) 25 Mcg Tablet) 50 mcg PO BEDTIME [facility] Last Admin: 01/26/23 20:06 Dose: 50 mcg Documented By: MAIK Labs 01/26/23 06:01 01/26/23 06:01 Labs: Laboratory Results - last 24 hr 01/26/23 01/26/23 01/26/23 11:31 16:40 20:43 POC Glucose 112 95 97 01/27/23 01/27/23 07:03 11:14 POC Glucose 93 87 Procedures Date of Service Date of Service: 01/27/23 Progress Note: A&P Assessment and plan (1) Open wound of right lower leg with complication: Status: Acute Plan Wound vac with serosanguineous drainage. Wound vac dressing changed; wound clean and beginning to granulate. Stable for dc to home with home unit, VNA services for MWF dressing changes. Patient comfortable with plan. F/u in office in 1-2 weeks. Time Spent With Patient Time: Total time managing care of this patient today ____ minutes. Quality Stroke Does the patient have a stroke diagnosis?: No VTE Prior VTE?: No VTE Risk Level:: Surgical - moderate VTE Device Contraindication: N/A - Device Ordered VTE Drug Contraindication: Treatment Not Indicated (bloody discharge from wound vac. )
--- NOTE | 2023-01-27 11:30 | P.F2F_ITS ---
Service Date Service Date: 01/27/23 Encounter Date of encounter: 01/27/23 Reasons for Services Signs and symptoms assessed: right hip wound appearance, wound vac drainage, hip pain Reason for penitentiary: wound care Homebound: Leaving the home is medically contraindicated at this time without the asist of a device and/or another person due th the listed conditions above and below. Reason homebound: weakness related to hospital stay and unable to drive Homebound supporting statement: Ms. Rodriguez is s/p wide debridement of non healing right hip wound with wound vac placement. The wound remains clean and is beginning to granulate. She will need wound vac dressing changes MWF. Certification: Based on the above findings, I certify that this patient is confined to the home and needs intermittent penitentiary care, physical therapy and/or speech therapy, or continues to need occupational therapy. The patient is under my care, and I have initiated the establishment of the plan of care. The patient will be followed by a physician who will periodically review the plan of care. Time Spent With Patient Time: Total time managing care of this patient today ____ minutes.
--- NOTE | 2023-01-27 13:10 | MHC.CM.PN ---
IMM 01/25/23 Patient with non healing rt hip wound is discharged today with a wound vac from [facility]. [facility] will provide home services. The patient will be seen Wednesday for next VAC change. Patient has arranged for family to provide transport home.
--- NOTE | 2023-01-27 13:59 | P.DS_ITS ---
DS: Providers Provider Date of Service: 01/27/23 Date of admission: 01/25/23 06:17 Date of discharge: 01/27/23 Primary care physician: Kayla Smith MD Attending physician on admission: Vini Mosquera Consults: 01/25/23 11:24 Consult to Hospitalist Routine Comment: Consulting Provider: Hospitalist Reason For Exam: Diabetes, COPD Med management Attending physician on discharge: Vini Mosquera DS: Diagnosis Discharge Diagnosis (1) Open wound of right lower leg with complication: Status: Acute DS: Summary Hospital Course Hospital Course: HPI AT ADMISSION: 77-year-old female patient with a prior history of right hip replacement now with a nonhealing wound of the right hip. Patient was found to have a deep wound extending approximately 15 cm into this deep subcutaneous tissue heading towards the right hip. No foreign body could be identified within the open wound. She now presents for debridement and wound vac placement. HOSPITAL COURSE: oN 01/25/23, wide debridement nonhealing wound right hip, wound VAC placement by Dr. Mosquera without complication. She was found to have a deep nonhealing ulcer with the apparent fistulous track extending towards hip but without any fragment of bone or foreign body at base. She tolerated the procedure well. She was admitted post operatively. She was doing well and remain ed hemodynamically stable post op and had minimal pain. The wound vac dressing was changed on POD #2 and the wound was clean and beginning to granulate. She tolerated the dressing change well. Arrangements were made for home VNA for dressing changes MWF. She was stable for discharge to home on 01/27/23 with VNA services for wound vac dressing changes. She is to follow up in the office in 1- 2 weeks. Status at Discharge Functional status at discharge: independent ambulation Overall status at discharge: patient is progressing back to baseline Time Spent with Patient Time attestation: Total time managing care of this patient today ____ minutes. Discharge coordination time: Less than 30 minutes Quality: Safe Use of Opioids Does Pt have an Active Cancer Diagnosis on the Problem List?: No Quality: Stroke Does the patient have a stroke diagnosis?: No Physical Exam Vital Signs: Vital Signs: Last Vital Signs Temp 98.3 F 01/27/23 07:23 Pulse 73 01/27/23 07:23 Resp 18 09/20/23 07:23 BP 132/60 01/27/23 07:23 Pulse Ox 96 01/27/23 07:23 O2 Del Method Room Air 01/27/23 07:23 O2 Flow Rate 2 01/25/23 09:35 BMI result Body Mass Index 50.4 Const: General: no acute distress and alert Orientation/consciousness: patient oriented x3 Resp: Effort & Inspection: normal respiratory effort Skin: Other: right hip wound clean, some granulation tissue of wound base Neuro: General: patient oriented x3 DS: Data Data Completed and Pending Completed studies during hospitalization [Text1]: 01/25/23 08:38 Surgical [PTH] Routine Skin and subcutaneous tissue, right hip, excision: Skin and subcutaneous tissue with robust granulation tissue formation, focal ulceration, abscess formation and fibrosis; negative for malignancy. Labs on day of discharge: Laboratory Results - last 24 hr 01/26/23 01/26/23 01/27/23 16:40 20:43 07:03 POC Glucose 95 97 93 01/27/23 11:14 POC Glucose 87 Discharge Plan Discharge Anticipated Discharge Date/Time: 01/27/23 12:40 Patient Disposition: Home Health Service Discharge Diagnosis: non healing wound right hip, s/p wide debridement Referrals: [facility] [Outside] - 1 Week Kayla Smith MD [Primary Care Provider] - 1 Week Vini Mosquera MD [Physician] - 1 Week Discharge Medications: Continued albuterol sulfate [ProAir HFA] 90 mcg/actuation HFA aerosol inhaler 1 inh inhalation QID PRN (Reason: shortness of breath or wheezing) 30 Days Qty: 18 2RF Calcium Citrate Plus [id number] [id number] Tablet 1 tab PO QAM pantoprazole 40 mg tablet,delayed release (DR/EC) 40 mg PO QPM hydrochlorothiazide 25 mg tablet 25 mg PO QAM escitalopram oxalate [Lexapro] 20 mg tablet 20 mg PO QAM bupropion HCl [Wellbutrin XL] 300 mg tablet extended release 24 hr 300 mg PO QAM ascorbic acid (vitamin C) 1,000 mg tablet 1,000 mg PO QAM cholecalciferol (vitamin D3) 50 mcg (2,000 unit) capsule 50 mcg PO QPM ferrous sulfate [Feosol] 325 mg (65 mg iron) tablet 325 mg PO QPM multivitamin [Daily Multi-Vitamin] Tablet 1 tab PO QPM primidone 50 mg tablet 50 mg PO BEDTIME bupropion HCl 150 mg tablet extended release 24 hr 150 mg PO QAM metformin 500 mg tablet 500 mg PO QPM lorazepam 0.5 mg tablet 0.5 mg PO DAILY PRN (Reason: Anxiety) propranolol 60 mg capsule,extended release 24 hr 60 mg PO BEDTIME aripiprazole 10 mg tablet 10 mg PO QAM Discharge Orders: Discharge Order (Routine); Ordered 01/27/23 Ordered By: Lorin Love Diet: Advance to usual diet Activity on Discharge: As tolerated Stand Alone Forms: Patient Portal Discharge page Activity Restrictions/Additional Instructions: Follow up in office in a week. ([phone]) Wound vac: dressing change three times a week; M W and as needed. Call Your Doctor If: ? ? -Your temperature exceeds 101.5? F? ? ? -You experience excessive pain or swelling ? ? -You have an unexpected reaction to medication ? ? -You experience continued vomiting/nausea Care Plan Goals: Wound healing Health Concerns: non healing wound right hip s/p wide excisional debridement, wound vac placement Plan of Treatment: wound vac therapy office follow up in 1 week Assessment: Doing well Discharge Date/Time: 01/27/23 14:04
== END 2023-01-27 14:04 | disposition home health service (06) | DRG 902 ==
LOC: HO.SSSA 06:18 → HO.S3 10:37
PROVIDERS: Nurse Practitioner; Admitting Provider Surgery; PCP Internal Medicine; Visit Provider Surgery
PROC: 0JBL0ZZ Excision of Right Upper Leg Subcutaneous Tissue and Fascia, Open Approach (ICD-10-PCS; principal; 2023-01-25 07:30)
DX: T81.31XA Disruption of external operation (surgical) wound, not elsewhere classified, initial encounter (principal); L97.819 Non-pressure chronic ulcer of other part of right lower leg with unspecified severity; Z68.43 Body mass index [BMI] 50.0-59.9, adult; E66.01 Morbid (severe) obesity due to excess calories; I87.2 Venous insufficiency (chronic) (peripheral); F39 Unspecified mood [affective] disorder; I10 Essential (primary) hypertension; J44.9 Chronic obstructive pulmonary disease, unspecified; Y83.8 Other surgical procedures as the cause of abnormal reaction of the patient, or of later complication, without mention of misadventure at the time of the procedure; Z87.891 Personal history of nicotine dependence; Z98.84 Bariatric surgery status; Z79.84 Long term (current) use of oral hypoglycemic drugs; Z79.899 Other long term (current) drug therapy
CPT/HCPCS: 36415; 80048; 82947; 85025; 85027; 88304; 88305; 93005; J0131; J0690

== ENCOUNTER → 2023-01-25 06:17 | Outpatient (BNV) | payer MEDICARE, MEDICAID, SELFPAY | PROVIDERS: Admitting Provider Surgery; PCP Internal Medicine; Visit Provider Surgery | DX: S81.801A Unspecified open wound, right lower leg, initial encounter (principal); Z48.00 Encounter for change or removal of nonsurgical wound dressing | CPT/HCPCS: 11042; 11045; 99232; 99238; G0180 ==

== ENCOUNTER → 2023-01-25 06:17 | Outpatient (BNV) | payer MEDICARE, MEDICAID, SELFPAY | PROVIDERS: Admitting Provider Surgery; PCP Internal Medicine; Visit Provider Physician Assistant | DX: S81.801A Unspecified open wound, right lower leg, initial encounter (principal) | CPT/HCPCS: 99222 ==

== ENCOUNTER 2023-02-02 08:45 | Outpatient (AMB) | payer MEDICARE, SELFPAY ==
--- NOTE | 2023-02-02 08:47 | MHC.PC.OV ---
Vital Signs 02/02/23 08:56 Height 5 ft Weight 248 lb BMI 48.4 BP 138/66 Blood Pressure Location Rt brachial Position Sitting Pulse 83 Pulse Source Pulse Oximeter Pulse Oximetry (%) 93 Oxygen Delivery Method Room Air Intake Visit Reasons: Annual Physical Allergies sucralfate [Carafate] Allergy (Intermediate, Verified 02/02/23 08:57) hives NSAIDS (Non-Steroidal Anti-Inflamma Adverse Reaction (Intermediate, Verified 02/02/23 08:57) cannot take due to gastric bypass history Medication List - Last Reconciled 02/02/23 by Kayla Smith MD aripiprazole 10 mg PO QAM ascorbic acid (vitamin C) 1,000 mg PO QAM bupropion HCl (Wellbutrin XL) 300 mg PO QAM bupropion HCl 150 mg PO QAM calcium gqo-rsx-V5-Zn-door puller-fortino [id number] ms-mt-tbqq-mg (Calcium Citrate Plus) 1 tab PO QAM cholecalciferol (vitamin D3) 50 mcg PO QPM escitalopram oxalate (Lexapro) 20 mg PO QAM ferrous sulfate (Feosol) 325 mg PO QPM hydrochlorothiazide 25 mg PO QAM lorazepam 0.5 mg PO DAILY PRN metformin 500 mg PO QPM multivitamin (Daily Multi-Vitamin tablet) 1 tab PO QPM oxycodone-acetaminophen 5-325 mg (Percocet) 1 tab PO Q8H PRN 7 days pantoprazole 40 mg PO QPM primidone 50 mg PO BEDTIME propranolol ER 60 mg PO BEDTIME Tobacco use date assessed: 02/02/23 Fall risk assessment: No Falls in past year Last assessed Fall Risk: 02/02/23 Dental Screening Dental Screen Date: 02/02/23 Did you have a dental visit in the last 12 months?: No Did you have a dental problem in the last 6 months where you did not have access to dental care?: No Was dental information given to patient?: Patient declined HPI Annual Physical HPI Details Patient is 77-year-old female came in today for physical examination Recently patient had wound VAC placed right hip area due to nonhealing 15 cm long wound which was oozing clear fluid. She is now caring the VAC machine with her everywhere. Patient says that we in his coming 3 times a week to change the sponge which is extremely painful. She has no pain medication for that. I have prescribed Percocet for the patient she may take that an hour before her VNA visit. Patient is seeing a psychiatrist for her psychiatric care She has seen Dr. Luna for peripheral vascular disease and currently using leg pumps which is helping her with her lymphedema She is seeing a specialist periodically for that management. Which is a lymphedema specialist She is also seeing neurologist for her chronic tremors and is taking primidone and propranolol through their office. Currently patient is taking iron supplement she is to continue that. Hydrochlorothiazide and pantoprazole is from PCP office for blood pressure and GERD management. Mammogram appointment is coming in March Colonoscopy was 2 months ago, she has a sister who because of colon cancer. Last hemoglobin was 10.9 checked on January 26 2023. BMI is elevated at 48.4, patient is morbidly obese and is trying to lose weight which is very difficult for her. She says metformin was prescribed by her psychiatrist as the antidepressant it she is taking causes weight gain. But it has not helped her she will talk to them to stop that medication. Follow-up 3 months [facility] Medical History Arthritis Renal calculi Post-influenza syndrome Tremor Peripheral vascular disease Right bundle branch block (RBBB) Aortic valve calcification Mitral annular calcification Nocturnal hypoxemia COPD (chronic obstructive pulmonary disease) Restrictive lung disease Lymphedema Stasis edema of both lower extremities Hip pain, right Nail fungus Chronic GERD Depression, major, recurrent Hypertension, essential Surgical History History of surgery H/O colonoscopy S/P gastric bypass History of cataract extraction History of total hip arthroplasty History of bilateral tubal ligation History of tonsillectomy Family History Father No problems noted. Mother Alzheimer's disease Maternal Grandmother Cancer Maternal Grandfather No problems noted. Paternal Grandfather No problems noted. Paternal Grandmother No problems noted. Maternal Aunt Cancer Sister Colon cancer Son No problems noted. Daughter No problems noted. Social History Household Members: Children Household Members Other:: daughter Housing: House Housing Other:: mobile home Are you a primary career development director to a significant other at home: No Do you presently have visiting nurse or other home services: Yes Alcohol intake: never Patient Tobacco Use Status: Former Tobacco user Quit Date: age 67 Tobacco use type: Cigarette Years Smoked: 38 e-Cigarette/Vaping Use: Currently Using Second Hand Smoke Exposure: No Advance Directives Date on File: 03/13/15 service: No Current occupational status: retired and other Current occupation: right handed Cognitive needs: No Hearing needs: No Vision needs: No Questionnaire Thrive Questionnaire Date Thrive assessed: 01/25/23 AUDIT C Alcohol Use Questionnaire (AUDIT-C) 1. How often do you have a drink containing alcohol?: Never 3. How often do you have six or more drinks on one occasion?: Never Total Score: 0 Score Reviewed/Action Taken: Yes GERMÁN-7 AMB Questionnaire GERMÁN-7 Date GERMÁN - 7 assessed: 06/19/22 Source: Developed by Drs. Francisco Mendoza, Edyta Moctezuma, Kam Mills and colleagues, with an educational desi from [employer]. Review of Systems Const Denies chills, Denies fever(s) and Denies headache(s) Eyes Denies blurry vision ENT Denies headache(s), Denies nasal discharge, Denies nasal obstruction, Denies odynophagia and Denies sinus pain Card Denies chest pain at rest and Denies chest pain with activity Resp Denies cough and Denies hemoptysis GI Denies diarrhea, Denies odynophagia, Denies vomiting and Denies hematemesis Reports as per HPI Skin/Breast Reports as per HPI Neuro Denies Neuro-related abnormal movements, Denies Abnormal speech present and Denies headache(s) Psych Denies mood swings and Denies paranoia Endo Reports as per HPI Valeriy/Lymph Reports as per HPI Aller/Immun Reports as per HPI Physical exam (Primary Care) Vital Signs: Last Vital Signs Pulse 83 02/02/23 08:56 BP 138/66 02/02/23 08:56 Pulse Ox 93 02/02/23 08:56 Oxygen Delivery Method Room Air 02/02/23 08:56 BMI result Body Mass Index 48.4 Tobacco/Smoking Status: Tobacco use Status Tobacco use date assessed 02/02/23 02/02/23 08:59 Patient Tobacco Use Status Former Tobacco user 02/02/23 08:47 Tobacco use type Cigarette 02/02/23 08:47 e-Cigarette/Vaping Use Currently Using 02/02/23 08:47 Thrive Assessment: Date of Thrive Assessment Date Thrive assessed 01/25/23 02/02/23 08:47 Const General: cooperative, comfortable and no acute distress Orientation/consciousness: patient oriented x3 HENMT Head: Yes normocephalic and Yes atraumatic Eyes General: appearance normal, both eyes and all related structures Pupils: Equal, round and reactive pupils present EOM: EOMs intact bilaterally Neck Neck: Yes supple and No lymphadenopathy Thyroid: Thyroid normal Lymphatic: no lymphadenopathy noted Resp Effort & Inspection: normal respiratory effort and able to speak in complete sentences Auscultation: clear to auscultation bilaterally Cardio Heart sounds: S1 normal heart sound present and S2 normal heart sound present GI Palpation (GI): Soft to palpation and nontender Auscultation: normal bowel sounds Skin General skin exam: elasticity normal and turgor normal Neuro General: patient oriented x3 Cranial nerves: Yes Equal, round and reactive pupils present Speech: No Abnormal speech present Extrem General: Yes normal exam except as noted and No edema Assessment and Plan Assessment & Plan (1) Encounter for general adult medical examination with abnormal findings: Code(s): Z00.01 - Encounter for general adult medical examination with abnormal findings (2) COPD (chronic obstructive pulmonary disease): Comment: PATIENT DOES HAVE HISTORY OF INTERMITTENT COUGH AND WHEEZING. DUE TO HER PAST HISTORY OF SMOKING I THINK SHE IS GOOD CANDIDATE FOR HAVING COPD. THAT MAY EXPLAIN MILD NOCTURNAL HYPOXEMIA . PATIENT IS SCHEDULED FOR COMPLETE PULMONARY FUNCTION TEST. TX ; SHE DOES HAVE ALBUTEROL INHALER ON HAND ADVISE THAT SHE MAY USE 2 PUFFS Q 4-6 HOURS P.R.N.. Code(s): J44.9 - Chronic obstructive pulmonary disease, unspecified Qualifiers: COPD type: emphysema Emphysema type: other Qualified Code(s): J43.8 - Other emphysema (3) Lymphedema: Comment: CHRONIC LYMPHEDEMA OF THE LOWER EXTREMITIES ALONG WITH CHRONIC VENOUS STASIS OF LOWER EXTREMITIES. Code(s): I89.0 - Lymphedema, not elsewhere classified (4) Depression, major, recurrent: Code(s): F33.9 - Major depressive disorder, recurrent, unspecified Qualifiers: Active/Remission status: in partial remission Qualified Code(s): F33.41 - Major depressive disorder, recurrent, in partial remission (5) Hypertension, essential: Code(s): I10 - Essential (primary) hypertension (6) Chronic GERD: Code(s): K21.9 - Gastro-esophageal reflux disease without esophagitis (7) Peripheral vascular disease: Code(s): I73.9 - Peripheral vascular disease, unspecified (8) Morbid obesity due to excess calories: Code(s): E66.01 - Morbid (severe) obesity due to excess calories (9) Anemia: Code(s): D64.9 - Anemia, unspecified Qualifiers: Anemia type: iron deficiency Iron deficiency anemia type: chronic blood loss Qualified Code(s): D50.0 - Iron deficiency anemia secondary to blood loss (chronic) Plan Patient is 77-year-old female came in today for physical examination Recently patient had wound VAC placed right hip area due to nonhealing 15 cm long wound which was oozing clear fluid. She is now caring the VAC machine with her everywhere. Patient says that we in his coming 3 times a week to change the sponge which is extremely painful. She has no pain medication for that. I have prescribed Percocet for the patient she may take that an hour before her VNA visit. Patient is seeing a psychiatrist for her psychiatric care She has seen Dr. Luna for peripheral vascular disease and currently using leg pumps which is helping her with her lymphedema She is seeing a specialist periodically for that management. Which is a lymphedema specialist She is also seeing neurologist for her chronic tremors and is taking primidone and propranolol through their office. Currently patient is taking iron supplement she is to continue that. Hydrochlorothiazide and pantoprazole is from PCP office for blood pressure and GERD management. Mammogram appointment is coming in March Colonoscopy was 2 months ago, she has a sister who because of colon cancer. Last hemoglobin was 10.9 checked on January 26 2023. BMI is elevated at 48.4, patient is morbidly obese and is trying to lose weight which is very difficult for her. She says metformin was prescribed by her psychiatrist as the antidepressant it she is taking causes weight gain. But it has not helped her she will talk to them to stop that medication. Follow-up 3 months Orders: Orders Complete Blood Count Auto Diff Today D64.9 - Anemia, unspecified, E66.01 - Morbid (severe) obesity due to excess calories, F33.9 - Major depressive disorder, recurrent, unspecified, I10 - Essential (primary) hypertension, I73.9 - Peripheral vascular disease, unspecified, I89.0 - Lymphedema, not elsewhere classified, J44.9 - Chronic obstructive pulmonary disease, unspecified, K21.9 - Gastro-esophageal reflux disease without esophagitis, Z00.01 - Encounter for general adult medical examination with abnormal findings Comprehensive Met. Panel Today D64.9 - Anemia, unspecified, E66.01 - Morbid (severe) obesity due to excess calories, F33.9 - Major depressive disorder, recurrent, unspecified, I10 - Essential (primary) hypertension, I73.9 - Peripheral vascular disease, unspecified, I89.0 - Lymphedema, not elsewhere classified, J44.9 - Chronic obstructive pulmonary disease, unspecified, K21.9 - Gastro-esophageal reflux disease without esophagitis, Z00.01 - Encounter for general adult medical examination with abnormal findings Medications: New oxycodone-acetaminophen 5-325 mg (Percocet) Partial Fill upon patient request. 1 tab PO Q8H PRN 21 tabs 0RF pain 7 days Coding Level of Care Code Est Pt Prev Care >65y(14320) Diagnoses Encounter for general adult medical examination with abnormal findings Z00.01 Other emphysema J43.8 COPD type: emphysema Emphysema type: other Lymphedema I89.0 Recurrent major depressive disorder, in partial remission F33.41 Active/Remission status: in partial remission Hypertension, essential I10 Chronic GERD K21.9 Peripheral vascular disease I73.9 Morbid obesity due to excess calories E66.01 Iron deficiency anemia due to chronic blood loss D50.0 Anemia type: iron deficiency Iron deficiency anemia type: chronic blood loss
[2023-02-02 08:56] VITALS: BP 138/66; PULSE 83; O2SAT 93; BMI 48.4
== END 2023-02-02 09:25 | disposition home or self-care (01) ==
PROVIDERS: Visit Provider Internal Medicine
DX: Z00.01 Encounter for general adult medical examination with abnormal findings (principal); J43.8 Other emphysema; F33.41 Major depressive disorder, recurrent, in partial remission; I10 Essential (primary) hypertension; K21.9 Gastro-esophageal reflux disease without esophagitis; I73.9 Peripheral vascular disease, unspecified; E66.01 Morbid (severe) obesity due to excess calories; I89.0 Lymphedema, not elsewhere classified; D50.0 Iron deficiency anemia secondary to blood loss (chronic)
CPT/HCPCS: 99397

== ENCOUNTER 2023-02-05 09:39 | Outpatient (AMB) | payer MEDICARE, MEDICAID, SELFPAY ==
--- NOTE | 2023-02-05 09:56 | MHC.OFFVIS ---
Intake Vital Signs 02/05/23 10:13 Height 5 ft Weight 245 lb 8 oz BMI 47.9 BP 179/78 H Blood Pressure Location Lt brachial Position Sitting Pulse 83 Intake Visit Reasons: S/P debridement Rt hip wound w/wound vac placement Intake Note: Patient is seen in office for debridement of right hip wound vac placement. Patient c/o: has nurse coming in 3 times a day to change the wound vac, some redness around the area, denies pain Roof Designer Required: No Accompanied by: Self / Same As Patient Allergies sucralfate [Carafate] Allergy (Intermediate, Verified 02/05/23 10:13) hives NSAIDS (Non-Steroidal Anti-Inflamma Adverse Reaction (Intermediate, Verified 02/05/23 10:13) cannot take due to gastric bypass history Medication List - Last Reconciled 02/05/23 by Vini Mosquera MD aripiprazole 10 mg PO QAM ascorbic acid (vitamin C) 1,000 mg PO QAM bupropion HCl (Wellbutrin XL) 300 mg PO QAM bupropion HCl 150 mg PO QAM calcium lva-mke-O1-Zn-copying machine repairer-fortino [id number] mi-di-xass-mg (Calcium Citrate Plus) 1 tab PO QAM cholecalciferol (vitamin D3) 50 mcg PO QPM escitalopram oxalate (Lexapro) 20 mg PO QAM ferrous sulfate (Feosol) 325 mg PO QPM hydrochlorothiazide 25 mg PO QAM lorazepam 0.5 mg PO DAILY PRN metformin 500 mg PO QPM multivitamin (Daily Multi-Vitamin tablet) 1 tab PO QPM oxycodone-acetaminophen 5-325 mg (Percocet) 1 tab PO Q8H PRN 7 days pantoprazole 40 mg PO QPM primidone 50 mg PO BEDTIME propranolol ER 60 mg PO BEDTIME HPI HPI Comments History of Present Illness Details 77-year-old female patient with a nonhealing wound of the right hip status post wide debridement and wound VAC placement returning today for wound check. She feels well and is tolerating the wound VAC without significant problems. She is ambulating well and denies any fever or chills. [facility] Medical History (Updated 02/05/23 @ 11:30 by Vini Mosquera MD) Arthritis Renal calculi Post-influenza syndrome Tremor Peripheral vascular disease Right bundle branch block (RBBB) Aortic valve calcification Mitral annular calcification Nocturnal hypoxemia COPD (chronic obstructive pulmonary disease) Restrictive lung disease Lymphedema Stasis edema of both lower extremities Hip pain, right Nail fungus Chronic GERD Depression, major, recurrent Hypertension, essential Surgical History History of surgery on lower extremity (01/25/23) History of surgery H/O colonoscopy S/P gastric bypass History of cataract extraction History of total hip arthroplasty History of bilateral tubal ligation History of tonsillectomy Family History Father No problems noted. Mother Alzheimer's disease Maternal Grandmother Cancer Maternal Grandfather No problems noted. Paternal Grandfather No problems noted. Paternal Grandmother No problems noted. Maternal Aunt Cancer Sister Colon cancer Son No problems noted. Daughter No problems noted. Social History Household Members: Children Household Members Other:: daughter Housing: House Housing Other:: mobile home Are you a primary healthcare advisory services manager to a significant other at home: No Do you presently have visiting nurse or other home services: Yes Alcohol intake: never Patient Tobacco Use Status: Former Tobacco user Quit Date: age 67 Tobacco use type: Cigarette Years Smoked: 38 e-Cigarette/Vaping Use: Currently Using Second Hand Smoke Exposure: No Advance Directives Date on File: 03/13/15 service: No Current occupational status: retired and other Current occupation: right handed Cognitive needs: No Hearing needs: No Vision needs: No Physical Exam Vital Signs: Last Vital Signs Pulse 83 02/05/23 10:13 BP 179/78 H 02/05/23 10:13 BMI result Body Mass Index 47.9 Const General: comfortable Nutritional Appearance: well nourished Orientation/consciousness: patient oriented x3 Limitations: no limitations Resp Effort & Inspection: normal respiratory effort Neuro General: patient oriented x3 Extrem Other: Right hip wound VAC dressing was changed. The current ulcer measures 7 cm high x 3 cm wide x 9 cm deep, with excellent granulation tissue noted throughout the wound. The wound VAC was reapplied with the black sponge and connected to 125 mmHg suction continuous. She tolerated the dressing change very well. No debridement was required. Assessment & Plan Assessment & Plan (1) Open wound of right lower leg with complication: Code(s): S81.801A - Unspecified open wound, right lower leg, initial encounter Plan 77-year-old female patient with a nonhealing wound of the right hip. Current measurements are 7 x 3 x 9 cm. There is excellent granulation tissue noted at the wound base. She will continue with the wound VAC dressing changes performed by VNA return approximately 2 weeks for reexamination. Coding Level of Care Code Est Pt Level 3 (84115) Diagnoses Open wound of right lower leg with complication S81.801A
[2023-02-05 10:13] VITALS: BP 179/78; PULSE 83; BMI 47.9
== END 2023-02-05 10:31 | disposition home or self-care (01) ==
PROVIDERS: PCP Internal Medicine; Visit Provider Surgery
DX: S81.801A Unspecified open wound, right lower leg, initial encounter (principal)
CPT/HCPCS: 97605; 99213

== ENCOUNTER → 2023-02-05 09:39 | Outpatient (BNVA) | payer MEDICARE, MEDICAID, SELFPAY | PROVIDERS: PCP Internal Medicine; Visit Provider Surgery | DX: S81.801D Unspecified open wound, right lower leg, subsequent encounter (principal) | CPT/HCPCS: 97605; 99212 ==

== ENCOUNTER 2023-02-24 14:21 | Outpatient (AMB) | payer MEDICARE, MEDICAID, SELFPAY ==
[2023-02-24 14:31] VITALS: BP 134/66; PULSE 76; O2SAT 96; BMI 48.5
--- NOTE | 2023-02-24 14:31 | A.OFFPC_ITS ---
Vital Signs 02/24/23 14:31 Height 5 ft Weight 248 lb 4 oz BMI 48.5 BP 134/66 Blood Pressure Location Rt brachial Position Sitting Pulse 76 Pulse Source Pulse Oximeter Pulse Oximetry (%) 96 Oxygen Delivery Method Room Air Intake Visit Reasons: Discuss Pain~ Allergies sucralfate [Carafate] Allergy (Intermediate, Verified 02/24/23 14:31) hives NSAIDS (Non-Steroidal Anti-Inflamma Adverse Reaction (Intermediate, Verified 02/24/23 14:31) cannot take due to gastric bypass history Medication List - Last Reconciled 02/24/23 by Kayla Smith MD aripiprazole 10 mg PO QAM ascorbic acid (vitamin C) 1,000 mg PO QAM bupropion HCl (Wellbutrin XL) 300 mg PO QAM bupropion HCl 150 mg PO QAM calcium xzv-tga-I8-Zn-helicopter specialist-fortino [id number] hz-cj-qova-mg (Calcium Citrate Plus) 1 tab PO QAM cholecalciferol (vitamin D3) 50 mcg PO QPM escitalopram oxalate (Lexapro) 20 mg PO QAM ferrous sulfate (Feosol) 325 mg PO QPM hydrochlorothiazide 25 mg PO QAM lorazepam 0.5 mg PO DAILY PRN multivitamin (Daily Multi-Vitamin tablet) 1 tab PO QPM oxycodone-acetaminophen 5-325 mg (Percocet) 1 tab PO Q8H PRN 7 days pantoprazole 40 mg PO QPM primidone 50 mg PO BEDTIME propranolol ER 60 mg PO BEDTIME Tobacco use date assessed: 02/24/23 Fall risk assessment: No Falls in past year Last assessed Fall Risk: 02/24/23 Dental Screening Dental Screen Date: 02/24/23 Did you have a dental visit in the last 12 months?: No Did you have a dental problem in the last 6 months where you did not have access to dental care?: No Was dental information given to patient?: Patient declined HPI Discuss Pain~ HPI Details Patient is 77-year-old female came in today to talk about pain management Patient has severe pain the regular lumbar area for the past 5 days She is having difficulty laying down flat, she has visiting nurses come over 3 times a day to change the drain right hip area and they are having difficulty as patient is not able to lay down. I have prescribed Percocet to be taken especially when the nurses are coming, she may take that at night as well to sleep Twenty-one tablets sent , she is already aware of side effects and has taken it in the past. Baclofen 10 mg sent to be taken up to 2 times a day, patient was notified that medication will make her very tired and if she feels dizzy and weak she should stop the medication. She has to be very careful ambulating use the walker if possible. [facility] Medical History Arthritis Renal calculi Post-influenza syndrome Tremor Peripheral vascular disease Right bundle branch block (RBBB) Aortic valve calcification Mitral annular calcification Nocturnal hypoxemia COPD (chronic obstructive pulmonary disease) Restrictive lung disease Lymphedema Stasis edema of both lower extremities Hip pain, right Nail fungus Chronic GERD Depression, major, recurrent Hypertension, essential Surgical History History of surgery on lower extremity (01/25/23) History of surgery H/O colonoscopy S/P gastric bypass History of cataract extraction History of total hip arthroplasty History of bilateral tubal ligation History of tonsillectomy Family History Father No problems noted. Mother Alzheimer's disease Maternal Grandmother Cancer Maternal Grandfather No problems noted. Paternal Grandfather No problems noted. Paternal Grandmother No problems noted. Maternal Aunt Cancer Sister Colon cancer Son No problems noted. Daughter No problems noted. Social History Household Members: Children Household Members Other:: daughter Housing: House Housing Other:: mobile home Are you a primary home care scheduler to a significant other at home: No Do you presently have visiting nurse or other home services: Yes Alcohol intake: never Patient Tobacco Use Status: Former Tobacco user Quit Date: age 67 Tobacco use type: Cigarette Years Smoked: 38 e-Cigarette/Vaping Use: Currently Using Second Hand Smoke Exposure: No Advance Directives Date on File: 03/13/15 service: No Current occupational status: retired and other Current occupation: right handed Cognitive needs: No Hearing needs: No Vision needs: No Questionnaire Thrive Questionnaire Date Thrive assessed: 01/25/23 AUDIT C Alcohol Use Questionnaire (AUDIT-C) 1. How often do you have a drink containing alcohol?: Never 3. How often do you have six or more drinks on one occasion?: Never Total Score: 0 Score Reviewed/Action Taken: Yes GERMÁN-7 AMB Questionnaire GERMÁN-7 Date GERMÁN - 7 assessed: 06/19/22 Source: Developed by Drs. Francisco Mendoza, Edyta Moctezuma, Kam Mills and colleagues, with an educational desi from [employer]. Review of Systems Const Denies chills and Denies fever(s) ENT Denies epistaxis and Denies nasal discharge Card Denies chest pain Resp Denies chest congestion, Denies cough and Denies hemoptysis GI Denies diarrhea and Denies nausea Skin/Breast Denies rash Neuro Reports no additional complaints Psych Reports no additional complaints Endo Reports no additional complaints Physical exam (Primary Care) Vital Signs: Last Vital Signs Pulse 76 02/24/23 14:31 BP 134/66 02/24/23 14:31 Pulse Ox 96 02/24/23 14:31 Oxygen Delivery Method Room Air 02/24/23 14:31 BMI result Body Mass Index 48.5 Tobacco/Smoking Status: Tobacco use Status Tobacco use date assessed 02/24/23 02/24/23 14:32 Patient Tobacco Use Status Former Tobacco user 02/24/23 14:32 Tobacco use type Cigarette 02/24/23 14:32 e-Cigarette/Vaping Use Currently Using 02/24/23 14:32 Thrive Assessment: Date of Thrive Assessment Date Thrive assessed 01/25/23 02/24/23 14:32 Const Other: Patient looks uncomfortable, sitting leaning to 1 side General: cooperative Orientation/consciousness: patient oriented x3 HENMT Head: Yes normocephalic Neck Neck: Yes supple Resp Effort & Inspection: normal respiratory effort, no cough and no stridor Cardio Rhythm: regular rhythm Heart sounds: S1 normal heart sound present and S2 normal heart sound present Skin General skin exam: turgor normal Neuro General: patient oriented x3, tone normal and moves all extremities Assessment and Plan Assessment & Plan (1) Thoracolumbar back pain: Code(s): M54.50 - Low back pain, unspecified; M54.6 - Pain in thoracic spine (2) Morbid obesity due to excess calories: Code(s): E66.01 - Morbid (severe) obesity due to excess calories (3) Open wound of right lower leg with complication: Code(s): S81.801A - Unspecified open wound, right lower leg, initial encounter Qualifiers: Encounter type: sequela Qualified Code(s): S81.801S - Unspecified open wound, right lower leg, sequela (4) Pain management: Code(s): R52 - Pain, unspecified Plan Patient is 77-year-old female came in today to talk about pain management Patient has severe pain the regular lumbar area for the past 5 days It started when patient tried to sit down in her daughter's car which is very low, currently patient's car has broke down and she is waiting for repair Patient is morbidly obese and it is difficult for her to carry her weight She is having difficulty laying down flat, she has visiting nurses come over 3 times a day to change the drain right hip area and they are having difficulty as patient is not able to lay down. I have prescribed Percocet to be taken especially when the nurses are coming, she may take that at night as well to sleep Twenty-one tablets sent , she is already aware of side effects and has taken it in the past. Baclofen 10 mg sent to be taken up to 2 times a day, patient was notified that medication will make her very tired and if she feels dizzy and weak she should stop the medication. She has to be very careful ambulating use the walker if possible. Medications: New baclofen 10 mg PO BID 15 days 30 tabs 0RF Refilled oxycodone-acetaminophen 5-325 mg (Percocet) Partial Fill upon patient request. 1 tab PO Q8H 7 days PRN 21 tabs 0RF pain Coding Level of Care Code Est Pt Level 3 (49561) Diagnoses Thoracolumbar back pain M54.50; M54.6 Morbid obesity due to excess calories E66.01 Open wound of right lower leg with complication, sequela S81.801S Encounter type: sequela Pain management R52
== END 2023-02-24 15:50 | disposition home or self-care (01) ==
PROVIDERS: PCP Internal Medicine; Visit Provider Internal Medicine
DX: M54.50 Low back pain, unspecified (principal); M54.6 Pain in thoracic spine; E66.01 Morbid (severe) obesity due to excess calories; Z68.42 Body mass index [BMI] 45.0-49.9, adult; S81.801S Unspecified open wound, right lower leg, sequela; R52 Pain, unspecified
CPT/HCPCS: 99213

== ENCOUNTER 2023-03-09 06:37 | Outpatient (REF) | payer MEDICARE, MEDICAID, SELFPAY ==
[2023-03-09 11:10] LABS: MANUAL DIFF FLAG NO
[2023-03-09 11:27] LABS: Basophils Percent Auto 0.5 % (0-2); Eosinophils Absolute Auto 0.2 X10*3/uL (0.0-0.4); Eosinophils Percent Auto 2.6 % (0-4); Hematocrit 38.8 % (37.0-47.0); Hemoglobin 11.8 g/dl (12.0-16.0); Imm Gran Abs Auto 0.03 X10*3/uL (0.00-0.03); Imm Gran Pct Auto 0.5 % (0.0-0.4); Lymphocytes Absolute Auto 1.3 X10*3/uL (1.2-4.9); Lymphocytes Percent Auto 22.9 % (20-40); Mean Corpuscular HGB Conc 30.4 g/dl (31.0-35.0); Mean Corpuscular Hemoglobin 29.8 pg (27.0-33.0); Mean Platelet Volume 8.9 fL (9.4-12.3); Monocytes Absolute Auto 0.4 X10*3/uL (0.1-1.2); Monocytes Percent Auto 6.9 % (2-11); Neutrophils Absolute Auto 3.8 x10*3/uL (2.0-8.3); Neutrophils Percent Auto 66.6 % (45-73); Platelet Count 345 X10*3/uL (160-400); Red Blood Count 3.96 X10*6/uL (4.20-5.50); Red Cell Distribution Width 14.1 % (11.0-16.0); White Blood Count 5.7 X10*3/uL (4.8-10.8)
[2023-03-09 11:34] LABS: Alanine Aminotransferase 7 U/L (0-31); Albumin Level 3.9 g/dL (3.5-5.0); Alkaline Phosphatase 105 U/L (39-117); Anion Gap 15 (12-20); Aspartate Amino Transferase 16 U/L (5-31); Bilirubin Total 0.2 mg/dL (0.0-1.0); Blood Urea Nitrogen 14 mg/dL (9-16); Calcium 9.5 mg/dL (8.4-10.2); Carbon Dioxide 29 mmol/L (22-29); Chloride 101 mmol/L (96-108); Estimated Glomerular Filt Rate > 60; Glucose Random 92 mg/dL (60-115); Potassium 4.3 mmol/L (3.3-5.1); Sodium 141 mmol/L (135-145)
== END 2023-03-09 06:38 | disposition home or self-care (01) ==
LOC: HO.HMGCLDS 06:37
PROVIDERS: PCP Internal Medicine; Visit Provider Internal Medicine
DX: Z00.01 Encounter for general adult medical examination with abnormal findings (principal); J44.9 Chronic obstructive pulmonary disease, unspecified; I89.0 Lymphedema, not elsewhere classified; F33.9 Major depressive disorder, recurrent, unspecified; I10 Essential (primary) hypertension; K21.9 Gastro-esophageal reflux disease without esophagitis; I73.9 Peripheral vascular disease, unspecified; E66.01 Morbid (severe) obesity due to excess calories; D64.9 Anemia, unspecified
CPT/HCPCS: 36415; 80053; 85025

== ENCOUNTER 2023-03-11 13:23 | Outpatient (AMB) | payer MEDICARE, MEDICAID, SELFPAY ==
--- NOTE | 2023-03-11 13:28 | A.OFFVIS_ITS ---
Intake Vital Signs 3 03/11/23 13:47 Height 5 ft Weight 248 lb 2 oz BMI 48.5 BP 195/88 H Blood Pressure Location Lt brachial Position Sitting Pulse 87 Intake Visit Reasons: Follow up debridement Rt hip wound w/wound vac Intake Note: Patient is seen in office for follow up visit, post debridement of the right hip/wound vac change. Patient c/o: VNA coming in 3 times a day, incision is smaller Produce Team Member Required: No Accompanied by: Self / Same As Patient Allergies sucralfate [Carafate] Allergy (Intermediate, Verified 03/11/23 13:47) hives NSAIDS (Non-Steroidal Anti-Inflamma Adverse Reaction (Intermediate, Verified 03/11/23 13:47) cannot take due to gastric bypass history Medication List - Last Reconciled 03/11/23 by Vini Mosquera MD aripiprazole 10 mg PO QAM ascorbic acid (vitamin C) 1,000 mg PO QAM baclofen 10 mg PO BID 15 days bupropion HCl (Wellbutrin XL) 300 mg PO QAM bupropion HCl 150 mg PO QAM calcium uib-kdm-T2-Zn-copyist-fortino [phone] im-px-zlos-mg (Calcium Citrate Plus) 1 tab PO QAM cholecalciferol (vitamin D3) 50 mcg PO QPM escitalopram oxalate (Lexapro) 20 mg PO QAM ferrous sulfate (Feosol) 325 mg PO QPM hydrochlorothiazide 25 mg PO QAM lorazepam 0.5 mg PO DAILY PRN multivitamin (Daily Multi-Vitamin tablet) 1 tab PO QPM oxycodone-acetaminophen 5-325 mg (Percocet) 1 tab PO Q8H PRN 7 days pantoprazole 40 mg PO QPM primidone 50 mg PO BEDTIME propranolol ER 60 mg PO BEDTIME sennosides-docusate sodium 8.6-50 mg (Senna Plus) 2 tab-caps (2 x 8.6-50 mg) PO BEDTIME PRN 90 days HPI HPI Comments 2 History of Present Illness0 Details 77-year-old female patient with a nonhea ling wound of the right hip status post wide debridement and wound VAC placement returning today for wound check. She feels well and is tolerating the wound VAC without significant problems. She is ambulating well and denies any fever or chills. She feels the wound VAC is working well and the wounds are nearly closed. [facility] Medical History Arthritis Renal calculi Post-influenza syndrome Tremor Peripheral vascular disease Right bundle branch block (RBBB) Aortic valve calcification Mitral annular calcification Nocturnal hypoxemia COPD (chronic obstructive pulmonary disease) Restrictive lung disease Lymphedema Stasis edema of both lower extremities Hip pain, right Nail fungus Chronic GERD Depression, major, recurrent Hypertension, essential Surgical History History of surgery on lower extremity (01/25/23) History of surgery H/O colonoscopy S/P gastric bypass History of cataract extraction History of total hip arthroplasty History of bilateral tubal ligation History of tonsillectomy Family History Father No problems noted. Mother Alzheimer's disease Maternal Grandmother Cancer Maternal Grandfather No problems noted. Paternal Grandfather No problems noted. Paternal Grandmother No problems noted. Maternal Aunt Cancer Sister Colon cancer Son No problems noted. Daughter No problems noted. Social History Household Members: Children Household Members Other:: daughter Housing: House Housing Other:: mobile home Are you a primary lawn care professional to a significant other at home: No Do you presently have visiting nurse or other home services: Yes Alcohol intake: never Patient Tobacco Use Status: Former Tobacco user Quit Date: age 67 Tobacco use type: Cigarette Years Smoked: 38 e-Cigarette/Vaping Use: Currently Using Second Hand Smoke Exposure: No Advance Directives Date on File: 03/13/15 service: No Current occupational status: retired and other Current occupation: right handed Cognitive needs: No Hearing needs: No Vision needs: No Physical Exam Const General: comfortable Nutritional Appearance: well nourished Orientation/consciousness: patient oriented x3 Limitations: no limitations Resp Effort & Inspection: normal respiratory effort Neuro General: patient oriented x3 Extrem Other: Right hip wound VAC dressing was changed. The current ulcer measures 2 x 2 by 1 cm deep with excellent granulation tissue noted throughout the wound. Probing of the wound with a cotton swab reveals no deeper track. The wound VAC was reapplied with the black sponge and connected to 125 mmHg suction continuous. She tolerated the dressing change very well. No debridement was required. Upper/lower leg/hip images: 2 1. Wound VAC site Assessment & Plan Assessment & Plan (1) Open wound of right lower leg with complication: Code(s): S81.801A - Unspecified open wound, right lower leg, initial encounter Qualifiers: Encounter type: sequela Qualified Code(s): S81.801S - Unspecified open wound, right lower leg, sequela Plan 77-year-old female patient with a nonhealing wound of the right hip. Current measurements are 2 x 2 x 1 cm. There is excellent granulation tissue noted at the wound base. She will continue with the wound VAC dressing changes performed by VNA return approximately 3 weeks for reexamination. Coding Level of Care Code Est Pt Level 3 (90117) Diagnoses Open wound of right lower leg with complication, sequela S81.801S Encounter type: sequela
[2023-03-11 13:47] VITALS: BP 195/88; PULSE 87; BMI 48.5
== END 2023-03-11 13:51 | disposition home or self-care (01) ==
PROVIDERS: PCP Internal Medicine; Visit Provider Surgery
DX: S81.801A Unspecified open wound, right lower leg, initial encounter (principal)
CPT/HCPCS: 97605; 99213

== ENCOUNTER → 2023-03-11 13:23 | Outpatient (BNVA) | payer MEDICARE, MEDICAID, SELFPAY | PROVIDERS: PCP Internal Medicine; Visit Provider Surgery | DX: L97.819 Non-pressure chronic ulcer of other part of right lower leg with unspecified severity (principal) | CPT/HCPCS: 97605; 99212 ==

== ENCOUNTER 2023-03-24 08:00 | Outpatient (AMB) | payer MEDICARE, MEDICAID, SELFPAY ==
[2023-03-24 08:13] VITALS: BP 120/78; PULSE 66; O2SAT 95
--- NOTE | 2023-03-24 08:13 | AM.OFFWIN_ITS ---
Intake Vital Signs 03/24/23 08:13 Weight 240 lb BP 120/78 Blood Pressure Location Lt brachial Position Sitting Pulse 66 Pulse Source Pulse Oximeter Pulse Oximetry (%) 95 Oxygen Delivery Method Room Air Intake Visit Reasons: EST/right side cracked ribs (lobby) Intake Note: Patient here for possible right rib crack. she states she turned and moved the wrong way two days ago and has been in pain since. Patient Tobacco Use Status: Former Tobacco user Quit Date: age 67 Allergies sucralfate [Carafate] Allergy (Intermediate, Verified 03/24/23 08:23) hives NSAIDS (Non-Steroidal Anti-Inflamma Adverse Reaction (Intermediate, Verified 03/24/23 08:23) cannot take due to gastric bypass history Medication List - Last Reconciled 03/24/23 by Pardeep Omalley MD aripiprazole 10 mg PO QAM ascorbic acid (vitamin C) 1,000 mg PO QAM baclofen 10 mg PO BID 15 days bupropion HCl (Wellbutrin XL) 300 mg PO QAM bupropion HCl 150 mg PO QAM calcium pzm-wkd-O6-Zn-helicopter dispatcher-fortino [id number] mv-fe-xbbg-mg (Calcium Citrate Plus) 1 tab PO QAM cholecalciferol (vitamin D3) 50 mcg PO QPM escitalopram oxalate (Lexapro) 20 mg PO QAM ferrous sulfate (Feosol) 325 mg PO QPM hydrochlorothiazide 25 mg PO QAM lorazepam 0.5 mg PO DAILY PRN multivitamin (Daily Multi-Vitamin tablet) 1 tab PO QPM oxycodone-acetaminophen 5-325 mg (Percocet) 1 tab PO Q8H PRN 7 days pantoprazole 40 mg PO QPM primidone 50 mg PO BEDTIME propranolol ER 60 mg PO BEDTIME sennosides-docusate sodium 8.6-50 mg (Senna Plus) 2 tab-caps (2 x 8.6-50 mg) PO BEDTIME PRN 90 days Do you need a note to return to daycare/school/sports/work: No HPI EST/right side cracked ribs (lobby) HPI Details 77-year-old female presents to the [facility] for a sick visit. Patient is reporting pain on the right side of her chest. Symptoms started after she bumped a large box that she was carrying to the door. This happened a few days ago. Pain on taking a deep breath. No visible bruising. [facility] Medical History Arthritis Renal calculi Post-influenza syndrome Tremor Peripheral vascular disease Right bundle branch block (RBBB) Aortic valve calcification Mitral annular calcification Nocturnal hypoxemia COPD (chronic obstructive pulmonary disease) Restrictive lung disease Lymphedema Stasis edema of both lower extremities Hip pain, right Nail fungus Chronic GERD Depression, major, recurrent Hypertension, essential Surgical History History of surgery on lower extremity (01/25/23) History of surgery H/O colonoscopy S/P gastric bypass History of cataract extraction History of total hip arthroplasty History of bilateral tubal ligation History of tonsillectomy Family History Father No problems noted. Mother Alzheimer's disease Maternal Grandmother Cancer Maternal Grandfather No problems noted. Paternal Grandfather No problems noted. Paternal Grandmother No problems noted. Maternal Aunt Cancer Sister Colon cancer Son No problems noted. Daughter No problems noted. Social History Household Members: Children Household Members Other:: daughter Housing: House Housing Other:: mobile home Are you a primary career development counselor to a significant other at home: No Do you presently have visiting nurse or other home services: Yes Alcohol intake: never Patient Tobacco Use Status: Former Tobacco user Quit Date: age 67 Tobacco use type: Cigarette Years Smoked: 38 e-Cigarette/Vaping Use: Currently Using Second Hand Smoke Exposure: No Advance Directives Date on File: 03/13/15 service: No Current occupational status: retired and other Current occupation: right handed Cognitive needs: No Hearing needs: No Vision needs: No Physical Exam Vital Signs: Last Vital Signs Pulse 66 03/24/23 08:13 BP 120/78 03/24/23 08:13 Pulse Ox 95 03/24/23 08:13 Oxygen Delivery Method Room Air 03/24/23 08:13 Const General: cooperative and healthy appearing Nutritional Appearance: well nourished Orientation/consciousness: patient oriented x3 Limitations: no limitations HEENT Head: Yes normal to inspection Eyes General: appearance normal, both eyes and all related structures Neck Neck: Yes normal visual inspection Chest Other: Discomfort on palpation over the right side of the chest. No specific tender area. Resp Effort & Inspection: normal respiratory effort Neuro General: patient oriented x3 Assessment & Plan Assessment & Plan (1) Contusion of rib: Code(s): S20.219A - Contusion of unspecified front wall of thorax, initial encounter Plan X-ray images were personally reviewed by me. No fractures noted. Fyzs-naz-dsyt ter anti-inflammatories suggested. Reassurance. Orders: Orders XR ribs RT min 3V w CXR1V Today S20.219A - Contusion of unspecified front wall of thorax, initial encounter Coding Level of Care Code Est Pt Level 4 (73414) Diagnoses Contusion of rib S20.219A
== END 2023-03-24 08:59 | disposition home or self-care (01) ==
PROVIDERS: PCP Internal Medicine; Visit Provider Internal Medicine
DX: S20.219A Contusion of unspecified front wall of thorax, initial encounter (principal)
CPT/HCPCS: 99214

== ENCOUNTER 2023-03-24 08:23 | Outpatient (REF) | payer MEDICARE, MEDICAID, SELFPAY ==
--- NOTE | ~2023-03-24 | XR_ITS ---
EXAMINATION: XR RIBS, RIGHT CLINICAL INFORMATION: Contusion of unspecified front wall of thorax, initial encounter COMPARISON: Chest radiograph 07/08/2022 TECHNIQUE: Single view chest and 3 views of the right ribs were obtained. FINDINGS: Lungs are clear. No consolidation, pneumothorax, or pleural effusion. The cardiomediastinal silhouette and pulmonary vasculature are normal. The aorta is unfolded. Old healed left-sided rib fractures are seen. No right-sided rib fractures are identified.. XR/XR ribs RT min 3V w CXR1V IMPRESSION: No acute intrathoracic disease. Old healed left-sided rib fractures.
== END 2023-03-24 08:24 | disposition home or self-care (01) ==
LOC: HO.HMGCX 08:23
PROVIDERS: PCP Internal Medicine; Visit Provider Internal Medicine
DX: S20.211A Contusion of right front wall of thorax, initial encounter (principal)
CPT/HCPCS: 71101

== ENCOUNTER 2023-03-30 07:20 | Outpatient (REF) | payer MEDICARE, MEDICAID, SELFPAY ==
--- NOTE | ~2023-03-30 | MM_ITS ---
EXAMINATION: MM SCREENING DIGITAL BREAST TOMOSYNTHESIS, BILATERAL CLINICAL INFORMATION: Screening. Asymptomatic. COMPARISON: Mammography: 03/24/2022, 03/14/2021, 03/12/2020, 03/07/2019 TECHNIQUE: Digital breast tomosynthesis is performed in both the craniocaudal and mediolateral oblique views along with computer-aided detection (CAD). Synthesized 2D images are generated from the tomosynthesis. FINDINGS: There are scattered areas of fibroglandular density (ACR BI-RADS breast composition Category b). Biopsy clip marker again seen mid central left breast. There are stable loosely grouped calcifications anterior upper outer left breast. There are no suspicious masses, suspicious grouped calcifications, or areas of architectural distortion in either breast. The parenchymal pattern is stable from prior exams. MM/MM tomosynthesis screening BI IMPRESSION: No mammographic evidence of malignancy. ASSESSMENT: BI-RADS BI-RADS 2 - Benign Findings RECOMMENDATION: Routine annual mammography screening. 1 year F/U This examination should not preclude the clinical evaluation of a suspicious palpable abnormality. This patient's information was entered into a reminder system with a target due date for their next mammogram.
== END 2023-03-30 07:21 | disposition home or self-care (01) ==
LOC: HO.MAMMO 07:20
PROVIDERS: PCP Internal Medicine; Visit Provider Internal Medicine
DX: Z12.31 Encounter for screening mammogram for malignant neoplasm of breast (principal)
CPT/HCPCS: 77063; 77067

== ENCOUNTER → 2023-03-30 07:30 | Outpatient (BNV) | payer MEDICARE, MEDICAID, SELFPAY | PROVIDERS: PCP Internal Medicine; Visit Provider Radiology Diagnostic Radiology | DX: Z12.31 Encounter for screening mammogram for malignant neoplasm of breast (principal) | CPT/HCPCS: 77063; 77067 ==

== ENCOUNTER → 2023-04-08 09:34 | Outpatient (BNVA) | payer MEDICARE, MEDICAID, SELFPAY | PROVIDERS: PCP Internal Medicine; Visit Provider Surgery | DX: Z48.00 Encounter for change or removal of nonsurgical wound dressing (principal); T14.8XXD Other injury of unspecified body region, subsequent encounter | CPT/HCPCS: 99211 ==

== ENCOUNTER 2023-05-13 09:25 | Outpatient (AMB) | payer MEDICARE, MEDICAID, SELFPAY ==
--- NOTE | 2023-05-13 09:34 | MHC.OFFVIS ---
Intake Vital Signs 05/13/23 09:36 Height 5 ft Weight 233 lb 2 oz BMI 45.5 BP 146/84 H Blood Pressure Location Lt brachial Position Sitting Pulse 78 Intake Visit Reasons: 4 wk follow up debridement Intake Note: Patient is seen in office for one month follow up visit, following open wound right lower leg. Pt c/o: no longer has a wound vac for aprox one month, wound is complete healed, denies any concerns or changes VNA notes:05/11/23 Ground Support Agent Required: No Accompanied by: Self / Same As Patient Allergies sucralfate [Carafate] Allergy (Intermediate, Verified 05/13/23 09:35) hives NSAIDS (Non-Steroidal Anti-Inflamma Adverse Reaction (Intermediate, Verified 05/13/23 09:35) cannot take due to gastric bypass history Medication List - Last Reconciled 05/13/23 by Vini Mosquera MD aripiprazole 10 mg PO QAM ascorbic acid (vitamin C) 1,000 mg PO QAM bupropion HCl (Wellbutrin XL) 300 mg PO QAM bupropion HCl 150 mg PO QAM calcium iyr-djl-A9-Zn-copper roller handler printing-fortino [id number] gu-it-qeai-mg (Calcium Citrate Plus) 1 tab PO QAM cholecalciferol (vitamin D3) 50 mcg PO QPM escitalopram oxalate (Lexapro) 20 mg PO QAM ferrous sulfate (Feosol) 325 mg PO QPM hydrochlorothiazide 25 mg PO QAM lorazepam 0.5 mg PO DAILY PRN multivitamin (Daily Multi-Vitamin tablet) 1 tab PO QPM pantoprazole 40 mg PO QPM primidone 50 mg PO BEDTIME propranolol ER 60 mg PO BEDTIME sennosides-docusate sodium 8.6-50 mg (Senna Plus) 2 tab-caps (2 x 8.6-50 mg) PO BEDTIME PRN 90 days HPI HPI Comments History of Present Illness Details Patient returns for final wound check of her right hip. She has been discharge from the VNA as the wound has completely closed and there are is no longer an open wound. She denies any pain redness or discharge from the wound. [facility] Medical History Arthritis Renal calculi Post-influenza syndrome Tremor Peripheral vascular disease Right bundle branch block (RBBB) Aortic valve calcification Mitral annular calcification Nocturnal hypoxemia COPD (chronic obstructive pulmonary disease) Restrictive lung disease Lymphedema Stasis edema of both lower extremities Hip pain, right Nail fungus Chronic GERD Depression, major, recurrent Hypertension, essential Surgical History History of surgery on lower extremity (01/25/23) History of surgery H/O colonoscopy S/P gastric bypass History of cataract extraction History of total hip arthroplasty History of bilateral tubal ligation History of tonsillectomy Family History Father No problems noted. Mother Alzheimer's disease Maternal Grandmother Cancer Maternal Grandfather No problems noted. Paternal Grandfather No problems noted. Paternal Grandmother No problems noted. Maternal Aunt Cancer Sister Colon cancer Son No problems noted. Daughter No problems noted. Social History Household Members: Children Household Members Other:: daughter Housing: House Housing Other:: mobile home Are you a primary geriatric personal care aide to a significant other at home: No Do you presently have visiting nurse or other home services: Yes Alcohol intake: never Patient Tobacco Use Status: Former Tobacco user Quit Date: age 67 Tobacco use type: Cigarette Years Smoked: 38 e-Cigarette/Vaping Use: Currently Using Second Hand Smoke Exposure: No Advance Directives Date on File: 03/13/15 service: No Current occupational status: retired and other Current occupation: right handed Cognitive needs: No Hearing needs: No Vision needs: No Review of Systems Const All systems reviewed & are unremarkable except as noted in HPI and below Physical Exam Vital Signs: Last Vital Signs Pulse 78 05/13/23 09:36 BP 146/84 H 05/13/23 09:36 BMI result Body Mass Index 45.5 Const General: comfortable Nutritional Appearance: well nourished Orientation/consciousness: patient oriented x3 Limitations: no limitations Resp Effort & Inspection: normal respiratory effort Neuro General: patient oriented x3 Extrem Other: Right hip wound is now completely closed with some skin retraction noted at the previous wound site. No ulceration discharge is appreciated. There is no tenderness to palpation. Assessment & Plan Assessment & Plan (1) Open wound of right lower leg with complication: Code(s): S81.801A - Unspecified open wound, right lower leg, initial encounter Qualifiers: Encounter type: sequela Qualified Code(s): S81.801S - Unspecified open wound, right lower leg, sequela Plan Patient returns following debridement of a large area of ulceration of the right hip. Wounds are now completely healed. She should follow up as needed. Coding Level of Care Code Est Pt Level 3 (12902) Diagnoses Open wound of right lower leg with complication, sequela S81.801S Encounter type: sequela
[2023-05-13 09:36] VITALS: BP 146/84; PULSE 78; BMI 45.5
== END 2023-05-13 09:38 | disposition home or self-care (01) ==
PROVIDERS: PCP Internal Medicine; Visit Provider Surgery
DX: S81.801A Unspecified open wound, right lower leg, initial encounter (principal)
CPT/HCPCS: 99213

== ENCOUNTER → 2023-05-13 09:25 | Outpatient (BNVA) | payer MEDICARE, MEDICAID, SELFPAY | PROVIDERS: PCP Internal Medicine; Visit Provider Surgery | DX: S81.801S Unspecified open wound, right lower leg, sequela (principal) | CPT/HCPCS: 99212 ==

== ENCOUNTER 2023-05-18 09:30 | Outpatient (AMB) | payer MEDICARE, MEDICAID, SELFPAY ==
[2023-05-18 09:41] VITALS: BP 128/76; PULSE 62; O2SAT 93; BMI 46.5
--- NOTE | 2023-05-18 09:41 | A.OFFPC_ITS ---
Vital Signs 05/18/23 09:41 Height 5 ft Weight 238 lb 4 oz BMI 46.5 BP 128/76 Blood Pressure Location Lt brachial Position Sitting Pulse 62 Pulse Source Pulse Oximeter Pulse Oximetry (%) 93 Oxygen Delivery Method Room Air Intake Visit Reasons: 3 month fu Allergies sucralfate [Carafate] Allergy (Intermediate, Verified 05/18/23 09:57) hives NSAIDS (Non-Steroidal Anti-Inflamma Adverse Reaction (Intermediate, Verified 05/18/23 09:57) cannot take due to gastric bypass history Medication List - Last Reconciled 05/18/23 by Kayla Smith MD aripiprazole 10 mg PO QAM ascorbic acid (vitamin C) 1,000 mg PO QAM bupropion HCl (Wellbutrin XL) 300 mg PO QAM bupropion HCl 150 mg PO QAM calcium acs-uch-Z5-Zn-type copyist-fortino [phone] id-xo-qooa-mg (Calcium Citrate Plus) 1 tab PO QAM cholecalciferol (vitamin D3) 50 mcg PO QPM escitalopram oxalate (Lexapro) 20 mg PO QAM ferrous sulfate (Feosol) 325 mg PO QPM hydrochlorothiazide 25 mg PO QAM lorazepam 0.5 mg PO DAILY PRN multivitamin (Daily Multi-Vitamin tablet) 1 tab PO QPM pantoprazole 40 mg PO QPM propranolol ER 60 mg PO BEDTIME Tobacco use date assessed: 05/18/23 Fall risk assessment: No Falls in past year Last assessed Fall Risk: 05/18/23 Dental Screening Dental Screen Date: 05/18/23 Did you have a dental visit in the last 12 months?: No Did you have a dental problem in the last 6 months where you did not have access to dental care?: No Was dental information given to patient?: No HPI 3 month fu HPI Details Patient is 77-year-old female came in today for regular follow-up appointment on blood pressure. Her blood pressure is 128/76 patient is taking hydrochlorothiazide 25 mg and tolerating. She is also on pantoprazole 40 mg for chronic GERD. Symptoms are stable She is also seeing neurologist and is taking primidone and propranolol through their office for tremors. Metformin is through her psychiatrist to aid as a weight loss medication Patient also suffer from major depression and bipolar disorder, taking Abilify and Wellbutrin She says that she has been taking this medication for years and usually have a virtual visit with the psych med prescriber. She recently had right multiple rib fracture I see that she is due for bone density which I have ordered She continued to feel difficulty breathing patient has seen Dr. Smith last year in summer but does not have any follow-up appointment She does have COPD and sleep apnea but does not want to take the CPAP machine. I have encouraged her to call Dr. Smith's office and book a follow-up appointment. I have ordered chest x-ray to follow-up on the rib fracture. Labs are needed before next visit patient already have appointment in August Only medication from PCP office is hydrochlorothiazide and pantoprazole. Patient is morbidly obese and having difficulty losing weight REPLACED BY [facility] Medical History Arthritis Renal calculi Post-influenza syndrome Tremor Peripheral vascular disease Right bundle branch block (RBBB) Aortic valve calcification Mitral annular calcification Nocturnal hypoxemia COPD (chronic obstructive pulmonary disease) Restrictive lung disease Lymphedema Stasis edema of both lower extremities Hip pain, right Nail fungus Chronic GERD Depression, major, recurrent Hypertension, essential Surgical History History of surgery on lower extremity (01/25/23) History of surgery H/O colonoscopy S/P gastric bypass History of cataract extraction History of total hip arthroplasty History of bilateral tubal ligation History of tonsillectomy Family History Father No problems noted. Mother Alzheimer's disease Maternal Grandmother Cancer Maternal Grandfather No problems noted. Paternal Grandfather No problems noted. Paternal Grandmother No problems noted. Maternal Aunt Cancer Sister Colon cancer Son No problems noted. Daughter No problems noted. Social History Household Members: Children Household Members Other:: daughter Housing: House Housing Other:: mobile home Are you a primary personal care service provider to a significant other at home: No Do you presently have visiting nurse or other home services: Yes Alcohol intake: never Patient Tobacco Use Status: Former Tobacco user Quit Date: age 67 Tobacco use type: Cigarette Years Smoked: 38 e-Cigarette/Vaping Use: Currently Using Second Hand Smoke Exposure: No Advance Directives Date on File: 03/13/15 service: No Current occupational status: retired and other Current occupation: right handed Cognitive needs: No Hearing needs: No Vision needs: No Questionnaire Thrive Questionnaire Date Thrive assessed: 01/25/23 AUDIT C Alcohol Use Questionnaire (AUDIT-C) 1. How often do you have a drink containing alcohol?: Never 3. How often do you have six or more drinks on one occasion?: Never Total Score: 0 Score Reviewed/Action Taken: Yes GERMÁN-7 AMB Questionnaire GERMÁN-7 Date GERMÁN - 7 assessed: 06/19/22 Feeling nervous, anxious, or on edge: 0 = Not at all Not being able to stop or control worryin = Not at all Worrying too much about different things: 0 = Not at all Trouble relaxin = Not at all Being so restless that it is hard to sit still: 0 = Not at all Becoming easily annoyed or irritable: 0 = Not at all Feeling afraid as if something awful might happen: 0 = Not at all Total GERMÁN-7 score (0-4 normal; 5-9 mild; 10-14 moderate; 15-21 severe): 0 Source: Developed by Drs. Francisco Mendoza, Edyta Moctezuma, Kam Mills and colleagues, with an educational desi from [employer]. GERMÁN-7 Assessment Billing GERMÁN-7 Assessment Tool: GERMÁN-7 Assessment 49029 Review of Systems Const Denies chills and Denies fever(s) ENT Denies epistaxis and Denies nasal discharge Card Denies chest pain Resp Denies chest congestion, Denies cough and Denies hemoptysis GI Denies diarrhea and Denies nausea Skin/Breast Denies rash Neuro Reports no additional complaints Psych Reports no additional complaints Endo Reports no additional complaints Physical exam (Primary Care) Vital Signs: Last Vital Signs Pulse 62 05/18/23 09:41 BP 128/76 05/18/23 09:41 Pulse Ox 93 05/18/23 09:41 Oxygen Delivery Method Room Air 05/18/23 09:41 BMI result Body Mass Index 46.5 Tobacco/Smoking Status: Tobacco use Status Tobacco use date assessed 05/18/23 05/18/23 09:42 Patient Tobacco Use Status Former Tobacco user 05/18/23 09:42 Tobacco use type Cigarette 05/18/23 09:42 e-Cigarette/Vaping Use Currently Using 05/18/23 09:42 Thrive Assessment: Date of Thrive Assessment Date Thrive assessed 01/25/23 05/18/23 09:42 Const General: cooperative, comfortable and no acute distress Orientation/consciousness: patient oriented x3 HENMT Head: Yes normocephalic Eyes General: appearance normal, both eyes and all related structures Neck Neck: Yes supple Resp Effort & Inspection: normal respiratory effort, no cough and no stridor Cardio Rhythm: regular rhythm Heart sounds: S1 normal heart sound present and S2 normal heart sound present Skin General skin exam: turgor normal Neuro General: patient oriented x3, tone normal and moves all extremities Extrem Right lower extremity: no edema Left lower extremity: no edema Assessment and Plan Assessment & Plan (1) Hypertension, essential: Code(s): I10 - Essential (primary) hypertension (2) COPD (chronic obstructive pulmonary disease): Comment: PATIENT DOES HAVE HISTORY OF INTERMITTENT COUGH AND WHEEZING. DUE TO HER PAST HISTORY OF SMOKING I THINK SHE IS GOOD CANDIDATE FOR HAVING COPD. THAT MAY EXPLAIN MILD NOCTURNAL HYPOXEMIA . PATIENT IS SCHEDULED FOR COMPLETE PULMONARY FUNCTION TEST. TX ; SHE DOES HAVE ALBUTEROL INHALER ON HAND ADVISE THAT SHE MAY USE 2 PUFFS Q 4-6 HOURS P.R.N.. Code(s): J44.9 - Chronic obstructive pulmonary disease, unspecified Qualifiers: COPD type: emphysema Emphysema type: other Qualified Code(s): J43.8 - Other emphysema (3) Lymphedema: Comment: CHRONIC LYMPHEDEMA OF THE LOWER EXTREMITIES ALONG WITH CHRONIC VENOUS STASIS OF LOWER EXTREMITIES. Code(s): I89.0 - Lymphedema, not elsewhere classified (4) Right rib fracture: Code(s): S22.31XA - Fracture of one rib, right side, initial encounter for closed fracture Qualifiers: Encounter type: sequela Rib fracture type: multiple ribs Fracture type: closed Qualified Code(s): S22.41XS - Multiple fractures of ribs, right side, sequela (5) Morbid obesity due to excess calories: Comment: THIS HAS BEEN A CHRONIC PROBLEM IN HER CASE, HE IS TRYING TO LOSE WEIGHT SLOWLY. MOST OF HER OBESITY IS DUE TO STASIS EDEMA AND LYMPHEDEMA OF THE LOWER EXTREMITIES. Code(s): E66.01 - Morbid (severe) obesity due to excess calories (6) Menopause: Code(s): Z78.0 - Asymptomatic menopausal state (7) Peripheral vascular disease: Code(s): I73.9 - Peripheral vascular disease, unspecified (8) Anemia: Code(s): D64.9 - Anemia, unspecified Qualifiers: Anemia type: iron deficiency Iron deficiency anemia type: chronic blood loss Qualified Code(s): D50.0 - Iron deficiency anemia secondary to blood loss (chronic) (9) Depression, major, recurrent: Code(s): F33.9 - Major depressive disorder, recurrent, unspecified Qualifiers: Active/Remission status: in partial remission Qualified Code(s): F33.41 - Major depressive disorder, recurrent, in partial remission (10) Chronic GERD: Code(s): K21.9 - Gastro-esophageal reflux disease without esophagitis Plan Patient is 77-year-old female came in today for regular follow-up appointment on blood pressure. Her blood pressure is 128/76 patient is taking hydrochlorothiazide 25 mg and tolerating. She is also on pantoprazole 40 mg for chronic GERD. Symptoms are stable She is also seeing neurologist and is taking primidone and propranolol through their office for tremors. Metformin is through her psychiatrist to aid as a weight loss medication Patient also suffer from major depression and bipolar disorder, taking Abilify and Wellbutrin She says that she has been taking this medication for years and usually have a virtual visit with the psych med prescriber. She recently had right multiple rib fracture I see that she is due for bone density which I have ordered She continued to feel difficulty breathing patient has seen Dr. Smith last year in summer but does not have any follow-up appointment She does have COPD and sleep apnea but does not want to take the CPAP machine. I have encouraged her to call Dr. Smith's office and book a follow-up appointment. I have ordered chest x-ray to follow-up on the rib fracture. Labs are needed before next visit patient already have appointment in August Only medication from PCP office is hydrochlorothiazide and pantoprazole. Patient is morbidly obese and having difficulty losing weight Orders: Orders XR DEXA axial skeleton Today Z78.0 - Asymptomatic menopausal state Comprehensive Met. Panel Today D64.9 - Anemia, unspecified, E66.01 - Morbid (severe) obesity due to excess calories, I10 - Essential (primary) hypertension, I73.9 - Peripheral vascular disease, unspecified, I89.0 - Lymphedema, not elsewhere classified, J44.9 - Chronic obstructive pulmonary disease, unspecified XR chest 2V Today S22.31XA - Fracture of one rib, right side, initial encounter for closed fracture Complete Blood Count Auto Diff Today D64.9 - Anemia, unspecified, E66.01 - Morbid (severe) obesity due to excess calories, I10 - Essential (primary) hypertension, I73.9 - Peripheral vascular disease, unspecified, I89.0 - Lymphedema, not elsewhere classified, J44.9 - Chronic obstructive pulmonary disease, unspecified LDL Cholesterol Direct Today D64.9 - Anemia, unspecified, E66.01 - Morbid (severe) obesity due to excess calories, I10 - Essential (primary) hypertension, I73.9 - Peripheral vascular disease, unspecified, I89.0 - Lymphedema, not elsewhere classified, J44.9 - Chronic obstructive pulmonary disease, unspecified Coding Level of Care Code Est Pt Level 4 (13146) Diagnoses Hypertension, essential I10 Other emphysema J43.8 COPD type: emphysema Emphysema type: other Lymphedema I89.0 Closed fracture of multiple ribs of right side, sequela S22.41XS Encounter type: sequela Rib fracture type: multiple ribs Fracture type: closed Morbid obesity due to excess calories E66.01 Menopause Z78.0 Peripheral vascular disease I73.9 Iron deficiency anemia due to chronic blood loss D50.0 Anemia type: iron deficiency Iron deficiency anemia type: chronic blood loss Recurrent major depressive disorder, in partial remission F33.41 Active/Remission status: in partial remission Chronic GERD K21.9 Additional Codes GERMÁN-7 Assessment Billing - GERMÁN-7 Assessment Tool: GERMÁN-7 Assessment [id number] ([id number])
== END 2023-05-18 12:36 | disposition home or self-care (01) ==
PROVIDERS: PCP Internal Medicine; Visit Provider Internal Medicine
DX: J43.8 Other emphysema (principal); E66.01 Morbid (severe) obesity due to excess calories; I73.9 Peripheral vascular disease, unspecified; F33.41 Major depressive disorder, recurrent, in partial remission; Z68.42 Body mass index [BMI] 45.0-49.9, adult; I10 Essential (primary) hypertension; I89.0 Lymphedema, not elsewhere classified; S22.41XS Multiple fractures of ribs, right side, sequela; Z78.0 Asymptomatic menopausal state; D50.0 Iron deficiency anemia secondary to blood loss (chronic); K21.9 Gastro-esophageal reflux disease without esophagitis
CPT/HCPCS: 99214

== ENCOUNTER 2023-05-18 10:18 | Outpatient (REF) | payer MEDICARE, MEDICAID, SELFPAY ==
--- NOTE | ~2023-05-18 | XR_ITS ---
EXAMINATION: XR CHEST CLINICAL INFORMATION: Fracture of one right rib. COMPARISON: Chest x-ray 03/24/2023 TECHNIQUE: 2 views of the chest were obtained. FINDINGS: The lungs are well-expanded and clear of acute pneumonic process. There is soft tissue density along the left lateral chest wall from healed fourth and fifth left rib fractures. No additional bony abnormality seen. There is exaggerated thoracic kyphosis with old compressed T8 fracture. XR/XR chest 2V IMPRESSION: 1. No acute cardiopulmonary process seen. 2. Old healed left fourth and fifth rib fractures. Exaggerated thoracic kyphosis with likely old compressed T8 fracture. The compression fracture is new since 01/28/2018. If patient has back pain this could be followed with a bone scan.
== END 2023-05-18 10:19 | disposition home or self-care (01) ==
LOC: HO.HMGCX 10:18
PROVIDERS: PCP Internal Medicine; Visit Provider Internal Medicine
DX: S22.31XA Fracture of one rib, right side, initial encounter for closed fracture (principal)
CPT/HCPCS: 71046

== ENCOUNTER 2023-05-24 13:30 | Outpatient (AMB) | payer MEDICARE, MEDICAID, SELFPAY ==
[2023-05-24 13:47] VITALS: BP 140/82; PULSE 73; O2SAT 96; BMI 46.3
--- NOTE | 2023-05-24 13:47 | MHC.OFFVIS ---
Intake Vital Signs 05/24/23 13:47 Height 5 ft Weight 236 lb 15.951 oz BMI 46.3 BP 140/82 H Blood Pressure Location Lt brachial Position Sitting Pulse 73 Pulse Source Pulse Oximeter Pulse Oximetry (%) 96 Oxygen Delivery Method Room Air Intake Visit Reasons: shortness of breath Intake Note: pt is here for follow up and states she has been short of breath about a week, ago, but she is having issues with pulled muscles and this is causing her difficulty with coughing hard. Compressor Battery Pellets Required: No Allergies sucralfate [Carafate] Allergy (Intermediate, Verified 05/24/23 14:38) hives NSAIDS (Non-Steroidal Anti-Inflamma Adverse Reaction (Intermediate, Verified 05/24/23 14:38) cannot take due to gastric bypass history Medication List - Last Reconciled 05/24/23 by Oriana Smith MD aripiprazole 10 mg PO QAM ascorbic acid (vitamin C) 1,000 mg PO QAM bupropion HCl (Wellbutrin XL) 300 mg PO QAM bupropion HCl 150 mg PO QAM calcium dcv-seo-Q4-Zn-photocopier technician-fortino [id number] op-rs-cpux-mg (Calcium Citrate Plus) 1 tab PO QAM cholecalciferol (vitamin D3) 50 mcg PO QPM escitalopram oxalate (Lexapro) 20 mg PO QAM ferrous sulfate (Feosol) 325 mg PO QPM hydrochlorothiazide 25 mg PO QAM lorazepam 0.5 mg PO DAILY PRN multivitamin (Daily Multi-Vitamin tablet) 1 tab PO QPM pantoprazole 40 mg PO QPM propranolol ER 60 mg PO BEDTIME ropinirole 0.25 mg PO BEDTIME sennosides-docusate sodium 8.6-50 mg (Senexon-S) 2 tabs PO BEDTIME PRN Do you need a note to return to daycare/school/sports/work: No HPI shortness of breath HPI Details 77 years old very pleasant female, who is morbidly obese, Comes in for follow-up after 6 months. Main complaint is getting short of breath on walking in the house. Denies wheezing but does get intermittent bouts of cough. She has had low back strain , with tightness of the back and chest which makes her breathing somewhat worse. Patient does have mild nocturnal hypoxemia but did not want to use oxygen. On her last visit 6 minutes walk test in the office was normal. [facility] Medical History Arthritis Renal calculi Post-influenza syndrome Tremor Peripheral vascular disease Right bundle branch block (RBBB) Aortic valve calcification Mitral annular calcification Nocturnal hypoxemia COPD (chronic obstructive pulmonary disease) Restrictive lung disease Lymphedema Stasis edema of both lower extremities Hip pain, right Nail fungus Chronic GERD Depression, major, recurrent Hypertension, essential Surgical History History of surgery on lower extremity (01/25/23) History of surgery H/O colonoscopy S/P gastric bypass History of cataract extraction History of total hip arthroplasty History of bilateral tubal ligation History of tonsillectomy Family History Father No problems noted. Mother Alzheimer's disease Maternal Grandmother Cancer Maternal Grandfather No problems noted. Paternal Grandfather No problems noted. Paternal Grandmother No problems noted. Maternal Aunt Cancer Sister Colon cancer Son No problems noted. Daughter No problems noted. Social History Household Members: Children Household Members Other:: daughter Housing: House Housing Other:: mobile home Are you a primary home care companion to a significant other at home: No Do you presently have visiting nurse or other home services: Yes Alcohol intake: never Patient Tobacco Use Status: Former Tobacco user Quit Date: age 67 Tobacco use type: Cigarette Years Smoked: 38 e-Cigarette/Vaping Use: Currently Using Second Hand Smoke Exposure: No Advance Directives Date on File: 03/13/15 service: No Current occupational status: retired and other Current occupation: right handed Cognitive needs: No Hearing needs: No Vision needs: No Review of Systems Const All systems reviewed & are unremarkable except as noted in HPI and below Eyes Reports no additional complaints ENT Reports no additional complaints Card Reports leg edema and Reports dyspnea Resp Reports as per HPI and Reports dyspnea GI Reports no additional complaints Reports no additional complaints Musc Reports back pain and Reports arthralgias (Mild) Skin/Breast Reports system reviewed and no additional complaints, except as documented Neuro Reports no additional complaints Psych Reports anxiety Endo Reports no additional complaints Valeriy/Lymph Reports no additional complaints Physical Exam Vital Signs: Last Vital Signs Pulse 73 05/24/23 13:47 BP 140/82 H 05/24/23 13:47 Pulse Ox 96 05/24/23 13:47 Oxygen Delivery Method Room Air 05/24/23 13:47 BMI result Body Mass Index 46.3 Const Other: Patient is grossly obese. Her obesity is mainly abdominal and of lower extremities. General: comfortable, no acute distress, alert and awake Orientation/consciousness: patient oriented x3 HEENT Head: Yes normal to inspection General nose exam: No nasal polyps present and No nasal discharge present Face and sinus: Yes sinuses nontender Mouth: oropharynx normal Throat: Yes posterior oropharynx normal (Oropharynx is only slightly crowded, Mallampati class 2) Eyes General: appearance normal, both eyes and all related structures Neck Neck: Yes normal visual inspection, Yes no lymphadenopathy, Yes trachea midline and Yes no JVD Thyroid: Thyroid normal Chest Chest palpation & inspection: normal inspection of the chest, normal palpation of entire chest wall and no tenderness Resp Effort & Inspection: normal respiratory effort Auscultation: clear to auscultation bilaterally, no crackles and no wheezes Percussion: other (Breath sounds are slightly distant but no wheezes or rhonchi are heard) Cardio Palpation: PMI not normal (PMI is not palpable) Rate: regular rate Rhythm: regular rhythm Heart sounds: no gallops and no murmurs GI Palpation (GI): Soft to palpation, Tenderness to palpation present (GI), No hepatosplenomegaly present and Palpable mass present Auscultation: normal bowel sounds Back/Spine/Pelvis Thoracic/Lumbar Spine: thoracic and lumbar spine normal to inspection and thoraco-lumbar ROM limited Neuro General: patient oriented x3 and no focal motor deficits Cranial nerves: Yes CN's II-XII intact bilaterally Extrem General: Yes normal to inspection, Yes no calf tenderness and Yes edema (There is massive edema of both lower extremities. Has compressive stockings) Psych Appearance: grossly normal and well kempt Speech and movement: Normal speech and movement present Assessment & Plan Assessment & Plan (1) Morbid obesity due to excess calories: Comment: THIS HAS BEEN A CHRONIC PROBLEM IN HER CASE, HE IS TRYING TO LOSE WEIGHT SLOWLY. MOST OF HER OBESITY IS DUE TO STASIS EDEMA AND LYMPHEDEMA OF THE LOWER EXTREMITIES. Code(s): E66.01 - Morbid (severe) obesity due to excess calories Plan: Again talked about her weight issue, She has not in any position to lose weight. (2) Nocturnal hypoxemia: Comment: MINIMAL NOCTURNAL HYPOXEMIA WAS RECORDED ON HOME-BASED SLEEP STUDY. O2 SAT BELOW 88% FOR 8 MINUTES. 6 MINUTE WALK TEST WAS DONE ON LAST VIST . RESTING O2 SAT 96% LOWEST O2 SAT AFTER WALKING 92%. SO SHE DOES NOT HAVE EXERCISE INDUCED HYPOXEMIA. Code(s): G47.34 - Idiopathic sleep related nonobstructive alveolar hypoventilation Plan: DOES NOT NEED TO USE PORTABLE OXYGEN. ALSO SHE DOES NOT WANT TO USE O2 AT NIGHT (3) Restrictive lung disease: Comment: BECAUSE OF HER MORBID OBESITY , SHE HAS A MINIMAL DEGREE OF RESTRICTIVE PATTERN, OTHERWISE PULMONARY FUNCTION TEXT IS BASICALLY NORMAL. TX : ADVISED TO DO DEEP BREATHING EXERCISES 2 TO 3 TIMES A DAY, ADVISED TO LOSE WEIGHT SLOWLY. DOES NOT NEED TO USE ANY BD INHALORS REVISIT TO ME ONLY P.R.N.. Code(s): J98.4 - Other disorders of lung Plan: AGAIN EXPLAINED ABOUT DOING DEEP BREATHING EXERCISES. I HAVE GIVEN HER INCENTIVE SPIROMETRY DEVICE AND INSTRUCTED HER TO DO DEEP BREATHING EXERCISES 10 EFFORTS AT LEAST 3 TIMES A DAY. (4) COPD (chronic obstructive pulmonary disease): Comment: PATIENT DOES HAVE HISTORY OF INTERMITTENT COUGH AND WHEEZING. DUE TO HER PAST HISTORY OF SMOKING I THINK SHE IS GOOD CANDIDATE FOR HAVING COPD. THAT MAY EXPLAIN MILD NOCTURNAL HYPOXEMIA . PATIENT WAS SCHEDULED FOR COMPLETE PULMONARY FUNCTION TEST, BUT DID NOT COME FOR THE TEST. TX ; SHE DOES HAVE ALBUTEROL INHALER ON HAND ADVISE THAT SHE MAY USE 2 PUFFS Q 4-6 HOURS P.R.N.. Code(s): J44.9 - Chronic obstructive pulmonary disease, unspecified Qualifiers: COPD type: emphysema Emphysema type: other Qualified Code(s): J43.8 - Other emphysema Plan: ABOVE (5) Stasis edema of both lower extremities: Comment: CHRONIC STASIS EDEMA OF LOWER EXTREMITIES. HAS HAD CHRONIC SEEPING OF FLUID FROM THE LEGS, WHICH IS NOW CONTROLLED WITH USE OF COMPRESSIVE STOCKINGS. Code(s): I87.303 - Chronic venous hypertension (idiopathic) without complications of bilateral lower extremity Plan: CONTINUE TO USE COMPRESSIVE STOCKINGS. Coding Level of Care Code Est Pt Level 3 (16789) Diagnoses Morbid obesity due to excess calories E66.01 Nocturnal hypoxemia G47.34 Restrictive lung disease J98.4 Other emphysema J43.8 COPD type: emphysema Emphysema type: other Stasis edema of both lower extremities I87.303
== END 2023-05-24 14:21 | disposition home or self-care (01) ==
PROVIDERS: PCP Internal Medicine; Visit Provider Internal Medicine
DX: E66.01 Morbid (severe) obesity due to excess calories (principal); G47.34 Idiopathic sleep related nonobstructive alveolar hypoventilation; J98.4 Other disorders of lung; J43.8 Other emphysema; I87.303 Chronic venous hypertension (idiopathic) without complications of bilateral lower extremity
CPT/HCPCS: 99213

== ENCOUNTER → 2023-05-24 13:30 | Outpatient (BNVA) | payer MEDICARE, MEDICAID, SELFPAY | PROVIDERS: PCP Internal Medicine; Visit Provider Internal Medicine | DX: G47.34 Idiopathic sleep related nonobstructive alveolar hypoventilation (principal); J98.4 Other disorders of lung; J43.8 Other emphysema; E66.01 Morbid (severe) obesity due to excess calories; I87.303 Chronic venous hypertension (idiopathic) without complications of bilateral lower extremity | CPT/HCPCS: 99212 ==

== ENCOUNTER 2023-06-03 08:56 | Outpatient (REF) | payer MEDICARE, MEDICAID, SELFPAY ==
--- NOTE | ~2023-06-03 | MM_ITS ---
EXAMINATION: BONE DENSITOMETRY CLINICAL INDICATION: Asymptomatic menopausal state. COMPARISON: Baseline BD dated 10/13/2012. TECHNIQUE: Using a [employer] DXA System (software version: 13.1) manufactured by [employer], dual-energy x-ray absorptiometry was performed of the lumbar spine and left hip. The images are of good technical quality. Summary results are attached. FINDINGS: AP SPINE L1-L4: Current: BMD 0.893 g/cm2, Z-score -1.8, T-score -2.4, osteopenia, 8.6% decrease from baseline (<5% change is not significant). Baseline: BMD 0.977 g/cm2. LEFT FEMUR, NECK: Current: BMD 0.609 g/cm2, Z-score -1.9, T-score -3.1, osteoporosis. Baseline: BMD 0.650 g/cm2. LEFT FEMUR, TOTAL: Current: BMD 0.601 g/cm2, Z-score -2.3, T-score -3.2, osteoporosis, 21.6% decrease from baseline (<5% change is not significant). Baseline: BMD 0.767 g/cm2. IDENTIFIED RISK FACTORS: History of adult fracture. Osteoporosis. Height loss. Menopause. HISTORY OF FRACTURE: Other. MEDICATIONS: Calcium supplement and/or multivitamin. Vitamin D. MM/XR DEXA axial skeleton IMPRESSION: 1. DIAGNOSIS: Osteoporosis based on the lowest T-score value of -3.2 in the total femur applying World Health Organization criteria. 2. 10-YEAR FRACTURE RISK PREDICTION, FRAX: According to the guidelines, FRAX calculation should only be performed on patients in the osteopenia bone density category.?Therefore, FRAX was not performed on this patient.? 3. Treatment Recommendations: NOF guidelines recommend consideration for treatment in postmenopausal women and men age 50 and older presenting with the following: -A hip or vertebral (clinical or morphometric) fracture. -T-score less than or equal to -2.5 at the femoral neck or spine after appropriate evaluation to exclude secondary causes. -Low bone mass at the hip or spine and a 10-year fracture probability by FRAX of greater than or equal to 3% for hip fracture or greater than or equal to 20% for major osteoporotic fracture based on the [place] adapted WHO algorithm. 4. Other Recommendations: All treatment decisions require clinical judgment and consideration of individual patient factors, including patient preferences, comorbidities, previous drug use, risk factors not captured in the FRAX model (e.g. frailty, falls, vitamin D deficiency, increased bone turnover, interval significant decline in bone density) and possible under or overestimation of fracture risk by FRAX. Additional medical evaluation for secondary cause of low bone mineral density may be appropriate. FUTURE SCAN RECOMMENDATION: People with diagnosed cases of osteoporosis or at high risk for fracture should have regular bone mineral density tests. For patients eligible for Medicare, routine testing is allowed once every 2 years. The testing frequency can be increased to one year for patients who have rapidly progressing disease, those who are receiving or discontinuing medical therapy to restore bone mass, or have additional risk factors.
== END 2023-06-03 08:57 | disposition home or self-care (01) ==
LOC: HO.MAMMO 08:56
PROVIDERS: PCP Internal Medicine; Visit Provider Internal Medicine
DX: Z13.820 Encounter for screening for osteoporosis (principal); Z78.0 Asymptomatic menopausal state
CPT/HCPCS: 77080

== ENCOUNTER 2023-08-02 11:35 | Outpatient (REF) | payer MEDICARE, MEDICAID, SELFPAY ==
[2023-08-02 13:55] LABS: MANUAL DIFF FLAG NO
[2023-08-02 14:02] LABS: Basophils Percent Auto 0.3 % (0-2); Eosinophils Absolute Auto 0.1 X10*3/uL (0.0-0.4); Eosinophils Percent Auto 1.5 % (0-4); Hematocrit 41.5 % (37.0-47.0); Imm Gran Abs Auto 0.02 X10*3/uL (0.00-0.03); Imm Gran Pct Auto 0.3 % (0.0-0.4); Lymphocytes Absolute Auto 1.6 X10*3/uL (1.2-4.9); Lymphocytes Percent Auto 26.4 % (20-40); Mean Corpuscular HGB Conc 31.3 g/dl (31.0-35.0); Mean Corpuscular Volume 98.8 fL (80.0-98.0); Mean Platelet Volume 9.8 fL (9.4-12.3); Monocytes Absolute Auto 0.4 X10*3/uL (0.1-1.2); Monocytes Percent Auto 6.6 % (2-11); Neutrophils Absolute Auto 3.8 x10*3/uL (2.0-8.3); Neutrophils Percent Auto 64.9 % (45-73); Platelet Count 257 X10*3/uL (160-400); Red Cell Distribution Width 12.9 % (11.0-16.0); White Blood Count 5.9 X10*3/uL (4.8-10.8)
[2023-08-02 14:09] LABS: Alanine Aminotransferase 13 U/L (0-31); Albumin Level 4.1 g/dL (3.5-5.0); Alkaline Phosphatase 112 U/L (39-117); Anion Gap 12 (12-20); Aspartate Amino Transferase 17 U/L (5-31); Bilirubin Total 0.2 mg/dL (0.0-1.0); Blood Urea Nitrogen 17 mg/dL (9-16); Calcium 9.2 mg/dL (8.4-10.2); Carbon Dioxide 32 mmol/L (22-29); Chloride 102 mmol/L (96-108); Estimated Glomerular Filt Rate > 60; Glucose Random 95 mg/dL (60-115); Potassium 4.3 mmol/L (3.3-5.1); Sodium 142 mmol/L (135-145); Total Protein 7.1 g/dL (6.5-8.0)
[2023-08-03 12:38] LABS: LDL Cholesterol Direct 51 mg/dL (<100)
== END 2023-08-02 11:36 | disposition home or self-care (01) ==
LOC: HO.HMGCLDS 11:35
PROVIDERS: PCP Internal Medicine; Visit Provider Internal Medicine
DX: D64.9 Anemia, unspecified (principal); I73.9 Peripheral vascular disease, unspecified; E66.01 Morbid (severe) obesity due to excess calories; J44.9 Chronic obstructive pulmonary disease, unspecified; I89.0 Lymphedema, not elsewhere classified; I10 Essential (primary) hypertension
CPT/HCPCS: 36415; 80053; 83721; 85025

== ENCOUNTER 2023-08-10 08:33 | Outpatient (AMB) | payer MEDICARE, MEDICAID, SELFPAY ==
[2023-08-10 08:39] VITALS: BP 132/78; PULSE 54; O2SAT 100; BMI 43.4
--- NOTE | 2023-08-10 08:39 | A.OFFPC_ITS ---
Vital Signs 08/10/23 08:39 Height 5 ft Weight 222 lb 6 oz BMI 43.4 BP 132/78 Blood Pressure Location Lt brachial Position Sitting Pulse 54 Pulse Source Pulse Oximeter Pulse Oximetry (%) 100 Oxygen Delivery Method Room Air Intake Visit Reasons: 4 month follow up Allergies sucralfate [Carafate] Allergy (Intermediate, Verified 08/10/23 08:39) hives NSAIDS (Non-Steroidal Anti-Inflamma Adverse Reaction (Intermediate, Verified 08/10/23 08:39) cannot take due to gastric bypass history Medication List - Last Reconciled 08/10/23 by Kayla Smith MD alendronate (Fosamax) 70 mg PO QWEEK 90 days aripiprazole 10 mg PO QAM ascorbic acid (vitamin C) 1,000 mg PO QAM bupropion HCl (Wellbutrin XL) 300 mg PO QAM bupropion HCl 150 mg PO QAM calcium gpg-[id number]-Zn-electron microscopist-fortino [id number] aa-ts-pvqq-mg (Calcium Citrate Plus) 1 tab PO QAM cholecalciferol (vitamin D3) 50 mcg PO QPM escitalopram oxalate (Lexapro) 20 mg PO QAM ferrous sulfate (Feosol) 325 mg PO QPM hydrochlorothiazide 25 mg PO QAM lorazepam 0.5 mg PO DAILY PRN multivitamin (Daily Multi-Vitamin tablet) 1 tab PO QPM pantoprazole 40 mg PO QPM propranolol ER 60 mg PO BEDTIME ropinirole 0.25 mg PO BEDTIME sennosides-docusate sodium 8.6-50 mg (Senexon-S) 2 tabs PO BEDTIME PRN Tobacco use date assessed: 08/10/23 Fall risk assessment: No Falls in past year Last assessed Fall Risk: 08/10/23 Dental Screening Dental Screen Date: 08/10/23 Did you have a dental visit in the last 12 months?: No Did you have a dental problem in the last 6 months where you did not have access to dental care?: No Was dental information given to patient?: No HPI 4 month follow up HPI Details Patient is 77-year-old female came in today for follow-up appointment Sister had Merino syndrome she has Patient is wondering if she has a gene, she is having difficulty moving her bowel for the past 1 month there is a change in bowel consistency. She does not know when she had last colonoscopy Referral placed to gastroenterology urgently Labs were done recently patient is no longer anemic Ribs have healed Her chest is clear on examination today Hypertension: patient is taking hydrochlorothiazide 25 mg and tolerating. She is on pantoprazole 40 mg for chronic GERD. Symptoms are stable She is seeing neurologist and is taking primidone and propranolol through their office for tremors. Metformin is through her psychiatrist to aid as a weight loss medication Patient also suffer from major depression and bipolar disorder, taking Abilify and Wellbutrin She says that she has been taking this medication for years and usually have a virtual visit with the psych med prescriber. Sleep apnea and COPD management through usability specialist Dr. Smith Only medication from PCP office is hydrochlorothiazide and pantoprazole. Patient is morbidly obese and having difficulty losing weight She has annual checkup scheduled for February she will return then or earlier if needed [facility] Medical History Arthritis Renal calculi Post-influenza syndrome Tremor Peripheral vascular disease Right bundle branch block (RBBB) Aortic valve calcification Mitral annular calcification Nocturnal hypoxemia COPD (chronic obstructive pulmonary disease) Restrictive lung disease Lymphedema Stasis edema of both lower extremities Hip pain, right Nail fungus Chronic GERD Depression, major, recurrent Hypertension, essential Surgical History History of surgery on lower extremity (01/25/23) History of surgery H/O colonoscopy S/P gastric bypass History of cataract extraction History of total hip arthroplasty History of bilateral tubal ligation History of tonsillectomy Family History Father No problems noted. Mother Alzheimer's disease Maternal Grandmother Cancer Maternal Grandfather No problems noted. Paternal Grandfather No problems noted. Paternal Grandmother No problems noted. Maternal Aunt Cancer Sister Colon cancer Son No problems noted. Daughter No problems noted. Social History Household Members: Children Household Members Other:: daughter Housing: House Housing Other:: mobile home Are you a primary acute care nurse practitioner to a significant other at home: No Do you presently have visiting nurse or other home services: Yes Alcohol intake: never Patient Tobacco Use Status: Former Tobacco user Quit Date: age 67 Tobacco use type: Cigarette Years Smoked: 38 e-Cigarette/Vaping Use: Currently Using Second Hand Smoke Exposure: No Advance Directives Date on File: 03/13/15 service: No Current occupational status: retired and other Current occupation: right handed Cognitive needs: No Hearing needs: No Vision needs: No Questionnaire PHQ-9 Over the last 2 weeks, how often have you been bothered by any of the following problems? 1. Little interest or pleasure in doing things: not at all 2. Feeling down, depressed, or hopeless: not at all 3. Trouble falling or staying asleep, or sleeping too much: several days 4. Feeling tired or having little energy: not at all 5. Poor appetite or overeating: several days 6. Feeling bad about yourself - or that you are a failure or have let yourself or your family down: not at all 7. Trouble concentrating on things, such as reading the newspaper or watching television: not at all 8. Moving or speaking so slowly that other people could have noticed. Or the opposite - being so fidgety or restless that you have been moving around a lot more than usual: not at all 9. Thoughts that you would be better off or of hurting yourself in some way: not at all Total score: 2 Depression Screening Interpretation: Negative Depression Screening Done: Yes 73419 - PHQ-9 Billing: Yes Source: Developed by Drs. Francisco Mendoza, Edyta Moctezuma, Kam Mills and colleagues, with an educational desi from [employer]. Thrive Questionnaire Date Thrive assessed: 08/10/23 I am a: Patient What is your living situation today?: I have a steady place to live Within the past 12 months, did the food you bought not last and you didn't have the money to get more?: Never true Within the past 12 months, did you worry whether your food would run out before you got money to buy more?: Never true Do you have trouble paying for medicines?: No Do you have trouble getting transportation to medical appointments?: No Do you have trouble paying your heating and electricity bill?: No Do you have trouble taking care of your child, family member or friend?: No Do you have trouble with day-to-day activities such as bathing, preparing meals, shopping, managing finances, etc.?: No Are you currently unemployed and looking for a job?: No Are you interested in more education?: No Please select the resources that you would like help with: None Currently or been in a relationship where the following occur: no concerns reported THRIVE Score: 0 AUDIT C Alcohol Use Questionnaire (AUDIT-C) 1. How often do you have a drink containing alcohol?: Never 3. How often do you have six or more drinks on one occasion?: Never Total Score: 0 Score Reviewed/Action Taken: Yes GERMÁN-7 AMB Questionnaire GERMÁN-7 Date GERMÁN - 7 assessed: 08/10/23 Feeling nervous, anxious, or on edge: 0 = Not at all Not being able to stop or control worryin = Not at all Worrying too much about different things: 0 = Not at all Trouble relaxin = Not at all Being so restless that it is hard to sit still: 0 = Not at all Becoming easily annoyed or irritable: 0 = Not at all Feeling afraid as if something awful might happen: 0 = Not at all Total GERMÁN-7 score (0-4 normal; 5-9 mild; 10-14 moderate; 15-21 severe): 0 Source: Developed by Drs. Francisco Mendoza, Edyta Moctezuma, Kam Mills and colleagues, with an educational desi from [employer]. GERMÁN-7 Assessment Billing GERMÁN-7 Assessment Tool: GERMÁN-7 Assessment 92646 Review of Systems Const Denies chills and Denies fever(s) ENT Denies epistaxis and Denies nasal discharge Card Denies chest pain Resp Denies chest congestion, Denies cough and Denies hemoptysis GI Denies diarrhea and Denies nausea Skin/Breast Denies rash Neuro Reports no additional complaints Psych Reports no additional complaints Endo Reports no additional complaints Physical exam (Primary Care) Vital Signs: Last Vital Signs Pulse 54 08/10/23 08:39 BP 132/78 08/10/23 08:39 Pulse Ox 100 08/10/23 08:39 Oxygen Delivery Method Room Air 08/10/23 08:39 BMI result Body Mass Index 43.4 Tobacco/Smoking Status: Tobacco use Status Tobacco use date assessed 08/10/23 08/10/23 08:43 Patient Tobacco Use Status Former Tobacco user 08/10/23 08:43 Tobacco use type Cigarette 08/10/23 08:43 e-Cigarette/Vaping Use Currently Using 08/10/23 08:43 PHQ-9: PHQ-9 Score PHQ-9: Total score 2 08/10/23 11:23 Depression Screening Interpretation: Negative Thrive Assessment: Date of Thrive Assessment Date Thrive assessed 08/10/23 08/10/23 11:23 Currently or been in a relationship where the following occur: no concerns reported Const General: cooperative, comfortable and no acute distress Orientation/consciousness: patient oriented x3 HENMT Head: Yes normocephalic Eyes General: appearance normal, both eyes and all related structures Neck Neck: Yes supple Resp Effort & Inspection: normal respiratory effort, no cough and no stridor Cardio Rhythm: regular rhythm Heart sounds: S1 normal heart sound present and S2 normal heart sound present Skin General skin exam: turgor normal Neuro General: patient oriented x3, tone normal and moves all extremities Assessment and Plan Assessment & Plan (1) Hypertension, essential: Code(s): I10 - Essential (primary) hypertension (2) COPD (chronic obstructive pulmonary disease): Comment: PATIENT DOES HAVE HISTORY OF INTERMITTENT COUGH AND WHEEZING. DUE TO HER PAST HISTORY OF SMOKING I THINK SHE IS GOOD CANDIDATE FOR HAVING COPD. THAT MAY EXPLAIN MILD NOCTURNAL HYPOXEMIA . PATIENT WAS SCHEDULED FOR COMPLETE PULMONARY FUNCTION TEST, BUT DID NOT COME FOR THE TEST. TX ; SHE DOES HAVE ALBUTEROL INHALER ON HAND ADVISE THAT SHE MAY USE 2 PUFFS Q 4-6 HOURS P.R.N.. Code(s): J44.9 - Chronic obstructive pulmonary disease, unspecified Qualifiers: COPD type: emphysema Emphysema type: other Qualified Code(s): J43.8 - Other emphysema (3) Lymphedema: Comment: CHRONIC LYMPHEDEMA OF THE LOWER EXTREMITIES ALONG WITH CHRONIC VENOUS STASIS OF LOWER EXTREMITIES. Code(s): I89.0 - Lymphedema, not elsewhere classified (4) Morbid obesity due to excess calories: Comment: THIS HAS BEEN A CHRONIC PROBLEM IN HER CASE, HE IS TRYING TO LOSE WEIGHT SLOWLY. MOST OF HER OBESITY IS DUE TO STASIS EDEMA AND LYMPHEDEMA OF THE LOWER EXTREMITIES. Code(s): E66.01 - Morbid (severe) obesity due to excess calories (5) Menopause: Code(s): Z78.0 - Asymptomatic menopausal state (6) Peripheral vascular disease: Code(s): I73.9 - Peripheral vascular disease, unspecified (7) Anemia: Code(s): D64.9 - Anemia, unspecified Qualifiers: Anemia type: iron deficiency Iron deficiency anemia type: chronic blood loss Qualified Code(s): D50.0 - Iron deficiency anemia secondary to blood loss (chronic) (8) Depression, major, recurrent: Code(s): F33.9 - Major depressive disorder, recurrent, unspecified Qualifiers: Active/Remission status: in partial remission Qualified Code(s): F33.41 - Major depressive disorder, recurrent, in partial remission (9) Chronic GERD: Code(s): K21.9 - Gastro-esophageal reflux disease without esophagitis (10) Change in bowel movement: Code(s): R19.8 - Other specified symptoms and signs involving the digestive system and ab domen Plan Patient is 77-year-old female came in today for follow-up appointment Sister had Merino syndrome she has Patient is wondering if she has a gene, she is having difficulty moving her bowel for the past 1 month there is a change in bowel consistency. She does not know when she had last colonoscopy Referral placed to gastroenterology urgently Labs were done recently patient is no longer anemic Ribs have healed Her chest is clear on examination today Hypertension: patient is taking hydrochlorothiazide 25 mg and tolerating. She is on pantoprazole 40 mg for chronic GERD. Symptoms are stable She is seeing neurologist and is taking primidone and propranolol through their office for tremors. Metformin is through her psychiatrist to aid as a weight loss medication Patient also suffer from major depression and bipolar disorder, taking Abilify and Wellbutrin She says that she has been taking this medication for years and usually have a virtual visit with the psych med prescriber. Sleep apnea and COPD management through usability specialist Dr. Smith Only medication from PCP office is hydrochlorothiazide and pantoprazole. Patient is morbidly obese and having difficulty losing weight She has annual checkup scheduled for February she will return then or earlier if needed Orders: Referrals Gastroenterology Referral R19.8 - Other specified symptoms and signs involving the digestive system and abdomen Coding Level of Care Code Est Pt Level 4 (05916) Diagnoses Hypertension, essential I10 Other emphysema J43.8 COPD type: emphysema Emphysema type: other Lymphedema I89.0 Morbid obesity due to excess calories E66.01 Menopause Z78.0 Peripheral vascular disease I73.9 Iron deficiency anemia due to chronic blood loss D50.0 Anemia type: iron deficiency Iron deficiency anemia type: chronic blood loss Recurrent major depressive disorder, in partial remission F33.41 Active/Remission status: in partial remission Chronic GERD K21.9 Change in bowel movement R19.8 Additional Codes GERMÁN-7 Assessment Billing - GERMÁN-7 Assessment Tool: GERMÁN-7 Assessment [id number] ([id number])
== END 2023-08-10 09:43 | disposition home or self-care (01) ==
PROVIDERS: PCP Internal Medicine; Visit Provider Internal Medicine
DX: I73.9 Peripheral vascular disease, unspecified (principal); Z68.41 Body mass index [BMI] 40.0-44.9, adult; J43.8 Other emphysema; E66.01 Morbid (severe) obesity due to excess calories; F33.41 Major depressive disorder, recurrent, in partial remission; I10 Essential (primary) hypertension; I89.0 Lymphedema, not elsewhere classified; Z78.0 Asymptomatic menopausal state; D50.0 Iron deficiency anemia secondary to blood loss (chronic); K21.9 Gastro-esophageal reflux disease without esophagitis; R19.8 Other specified symptoms and signs involving the digestive system and abdomen
CPT/HCPCS: 99214

== ENCOUNTER 2023-08-12 09:21 | Outpatient (AMB) | payer MEDICARE, MEDICAID, SELFPAY ==
[2023-08-12 09:24] VITALS: BP 132/51; PULSE 51; BMI 43.1
--- NOTE | 2023-08-12 09:24 | MHC.OFFVIS ---
Intake Vital Signs 08/12/23 09:24 Height 5 ft Weight 220 lb 7.396 oz BMI 43.1 BP 132/51 L Blood Pressure Location Rt brachial Position Sitting Pulse 51 Intake Visit Reasons: Constipation Intake Note: Mayra presents to in office visit today for constipation. CC: Patient returns to office today referred by PCP for bowel changes for the past 1 month, having difficulty moving bowel. Patient states that she has to push really hard and still get very small amount of stool out, which is also thin stringy ribbon like. She states that she sometimes take stool softener or laxative but still has to strain really hard to have a BM. Urgent Care Physician Required: No Accompanied by: Self / Same As Patient Allergies sucralfate [Carafate] Allergy (Intermediate, Verified 08/12/23 09:30) hives NSAIDS (Non-Steroidal Anti-Inflamma Adverse Reaction (Intermediate, Verified 08/12/23 09:30) cannot take due to gastric bypass history HPI Constipation HPI Details Assessment & Plan (1) Tubular adenoma of colon: Comment: 2022= 2 large TA is repeat in 3 years Code(s): D12.6 - Benign neoplasm of colon, unspecified Plan: Procedure needs to be repeated in 3 years due the size of the tubular adenomas. Also because of sister of colorectal cancer. The procedure was well tolerated. The results were explained and the patient is agreeable to the follow-up interval as stated. The bowel pattern has returned to normal. Education was provided to tell any 1st degree relatives about their findings to be sure that they are screened by age 45. Educated that they will be put on a recall list when it is time for their repeat scope but should they move out of state or away from the hospital they will need to remember along with their primary to repeat the procedure in a timely fashion to avoid any adverse complicatio TODAYS VISIT She was fearful that this was r/t CRC given her sisters hx of Bowling. This started about a month ago with severe CIC and she has to strain hard to push it out. She has tried colace and exlax but still has to strain to pass soft stool. She admits that when she uses these laxatives her stool is softer but it was never hard to start with an this does not seem to improve her evacuation. Her prior BM's were normal and formed and daily. About the same time she started wt watchers, but she is eating more fiber with the zero point foods. She is s/p gastric bypass. Her mother had thyroid problems. Started Fosamax at the same time and this could be the cause, or illness preceding this. No recent surgeries. She is not a good fluid drinker but this is not changed. She drinks 4 c coffee a day caffeine. I did educate her that this could be dehydrated her. Getting TSH, abd XR, small bowel follow through and trial of motegrity as she has failed prune juice, miralax, senna, lactulose, ex lax, fiber and colace. ROV 3 weeks. [facility] Medical History Arthritis Renal calculi Post-influenza syndrome Tremor Peripheral vascular disease Right bundle branch block (RBBB) Aortic valve calcification Mitral annular calcification Nocturnal hypoxemia COPD (chronic obstructive pulmonary disease) Restrictive lung disease Lymphedema Stasis edema of both lower extremities Hip pain, right Nail fungus Chronic GERD Depression, major, recurrent Hypertension, essential Surgical History History of surgery on lower extremity (01/25/23) History of surgery H/O colonoscopy S/P gastric bypass History of cataract extraction History of total hip arthroplasty History of bilateral tubal ligation History of tonsillectomy Family History Father No problems noted. Mother Alzheimer's disease Maternal Grandmother Cancer Maternal Grandfather No problems noted. Paternal Grandfather No problems noted. Paternal Grandmother No problems noted. Maternal Aunt Cancer Sister Colon cancer Son No problems noted. Daughter No problems noted. Social History Household Members: Children Household Members Other:: daughter Housing: House Housing Other:: mobile home Are you a primary ambulatory care to a significant other at home: No Do you presently have visiting nurse or other home services: Yes Alcohol intake: never Patient Tobacco Use Status: Former Tobacco user Quit Date: age 67 Tobacco use type: Cigarette Years Smoked: 38 e-Cigarette/Vaping Use: Currently Using Second Hand Smoke Exposure: No Advance Directives Date on File: 03/13/15 service: No Current occupational status: retired and other Current occupation: right handed Cognitive needs: No Hearing needs: No Vision needs: No Review of Systems Const Denies fatigue, Denies fever(s), Denies night sweats, Denies poor appetite and Denies weight loss ENT Reports Normal hearing present, Denies dental pain, Denies dysphagia, Denies hearing loss, Denies mouth pain, Denies odynophagia, Denies throat swelling, Denies tongue swelling and Reports other (Dentition adequate) Card Reports no additional complaints Resp Reports no additional complaints GI Details: Denies abdominal pain, Denies melena, Denies bloating, Denies hematochezia, Reports constipation, Denies GI cramping, Denies dysphagia, Denies excessive flatus, Denies early satiety, Denies heartburn, Denies diarrhea, Denies nausea, Denies odynophagia, Denies vomiting and Denies hematemesis Skin/Breast Denies pruritus, Denies lesions, Denies rash and Denies jaundice Neuro Reports Normal hearing present and Denies Abnormal speech present Endo Denies fatigue Aller/Immun Denies throat swelling and Denies tongue swelling Physical Exam Vital Signs: Last Vital Signs Pulse 51 08/12/23 09:24 BP 132/51 L 08/12/23 09:24 BMI result Body Mass Index 43.1 Const General: cooperative, no acute distress, well developed and well groomed Nutritional Appearance: well nourished and obese morbidly obese Orientation/consciousness: oriented to person, oriented to place and oriented to time Limitations: No language barrier HEENT Head: Yes normocephalic and Yes atraumatic Eyes General: appearance normal, both eyes and all related structures Pupils: Equal, round and reactive pupils present Neck Neck: Yes normal visual inspection and Yes no lymphadenopathy Thyroid: Thyroid normal Resp Effort & Inspection: normal respiratory effort and able to speak in complete sentences Auscultation: clear to auscultation bilaterally Cardio Rate: regular rate Rhythm: regular rhythm Heart sounds: Normal, physiologic split S2 sound present Peripheral pulses: radial pulses present and posterior tibial pulses present GI Inspection: No distended, Yes Abdominal panniculus present and Yes obesity Palpation (GI): Soft to palpation, nontender, no guarding, not rigid and No hepatosplenomegaly present Percussion: Yes normal to percussion Auscultation: normal bowel sounds Rectal Exam - Female: deferred Skin General skin exam: no rashes or lesions noted, turgor normal, skin not dry, no jaundice, No spider nevi and no striae Rashes: no rashes Nails: normal Neuro General: oriented to person, oriented to place and oriented to time Cranial nerves: Yes Equal, round and reactive pupils present and Yes Normal hearing present Speech: No Abnormal speech present Extrem General: Yes normal to inspection, No clubbing, No cyanosis and No edema Psych Appearance: grossly normal and well kempt Mental Status: mental status grossly normal Speech and movement: Normal speech and movement present Affect: normal affect Attitude: cooperative Thought process: Normal thought process present and not confabulating Thought content: Normal thought content present Insight: Fair insight present (Psych) Judgement: Fair judgement present (Psych) Assessment & Plan Assessment & Plan (1) Constipation: Code(s): K59.00 - Constipation, unspecified Plan She was fearful that this was r/t CRC given her sisters hx of Bowling. This started about a month ago with severe CIC and she has to strain hard to push it out. She has tried colace and exlax but still has to strain to pass soft stool. She admits that when she uses these laxatives her stool is softer but it was never hard to start with an this does not seem to improve her evacuation. Her prior BM's were normal and formed and daily. About the same time she started wt watchers, but she is eating more fiber with the zero point foods. She is s/p gastric bypass. Her mother had thyroid problems. Started Fosamax at the same time and this could be the cause, or illness preceding this. No recent surgeries. She is not a good fluid drinker but this is not changed. She drinks 4 c coffee a day caffeine. I did educate her that this could be dehydrated her. Getting TSH, abd XR, small bowel follow through and trial of motegrity as she has failed prune juice, miralax, senna, lactulose, ex lax, fiber and colace. ROV 3 weeks. Orders: Orders XR abdomen w decubitus Today K59.00 - Constipation, unspecified TSH reflex Free T4 Today K59.00 - Constipation, unspecified FL upper GI small bowel Today K59.00 - Constipation, unspecified Medications: New prucalopride (Motegrity) 1 mg PO DAILY 30 tabs 3RF K59.00 - Constipation, unspecified Coding Level of Care Code Est Pt Level 3 (93026) Diagnoses Constipation K59.00
== END 2023-08-12 09:59 | disposition home or self-care (01) ==
PROVIDERS: PCP Internal Medicine; Visit Provider Nurse Practitioner
DX: K59.00 Constipation, unspecified (principal)
CPT/HCPCS: 99213

== ENCOUNTER 2023-08-12 09:21 | Outpatient (REF) | payer MEDICARE, MEDICAID, SELFPAY ==
--- NOTE | ~2023-08-12 | XR_ITS ---
EXAMINATION: XR ABDOMEN WITH DECUBITUS VIEWS CLINICAL INDICATION: Constipation COMPARISON: None available. TECHNIQUE: 4 views FINDINGS: Numerous clips to the upper abdomen and central abdomen consistent previous surgery. The bowel gas pattern is notable for top normal small bowel loops centrally without bowel wall thickening or air fluid levels. No evidence for any ileus or obstruction. No unusual soft tissue calcifications are noted. The bones are unremarkable. Right hip arthroplasty changes noted. XR/XR abdomen w decubitus IMPRESSION: Nonspecific bowel gas pattern as above. No evidence for obstruction.
[2023-08-12 11:52] LABS: TSH reflex Free T4 0.65 uIU/mL (0.32-4.0)
== END 2023-08-12 09:22 | disposition home or self-care (01) ==
LOC: HO.XRAY 09:21
PROVIDERS: PCP Internal Medicine; Visit Provider Nurse Practitioner
DX: K59.00 Constipation, unspecified (principal)
CPT/HCPCS: 36415; 74021; 84443; 99212

== ENCOUNTER 2023-09-01 08:39 | Outpatient (AMB) | payer MEDICARE, MEDICAID, SELFPAY ==
[2023-09-01 08:41] VITALS: BP 143/69; PULSE 80; BMI 42.5
--- NOTE | 2023-09-01 08:41 | MHC.OFFVIS ---
Vital Signs 09/01/23 08:41 Height 5 ft Weight 217 lb 13.067 oz BMI 42.5 BP 143/69 H Blood Pressure Location Rt brachial Position Sitting Pulse 80 Intake Visit Reasons: 3 weeks CIC Intake Note: Mayra presents to in office visit today in follow up off constipation, lab, anc X-ray. CC: Patient states that she is doing better and not having to strain as much to have a BM. Denies any new Gi concerns today. Lubricating Machine Tender Required: No Accompanied by: Self / Same As Patient Allergies sucralfate [Carafate] Allergy (Intermediate, Verified 09/01/23 08:48) hives NSAIDS (Non-Steroidal Anti-Inflamma Adverse Reaction (Intermediate, Verified 09/01/23 08:48) cannot take due to gastric bypass history HPI HPI 3 weeks CIC: Details: Assessment & Plan (1) Constipation: Code(s): K59.00 - Constipation, unspecified Plan She was fearful that this was r/t CRC given her sisters hx of Bowling. This started about a month ago with severe CIC and she has to strain hard to push it out. She has tried colace and exlax but still has to strain to pass soft stool. She admits that when she uses these laxatives her stool is softer but it was never hard to start with an this does not seem to improve her evacuation. Her prior BM's were normal and formed and daily. About the same time she started wt watchers, but she is eating more fiber with the zero point foods. She is s/p gastric bypass. Her mother had thyroid problems. Started Fosamax at the same time and this could be the cause, or illness preceding this. No recent surgeries. She is not a good fluid drinker but this is not changed. She drinks 4 c coffee a day caffeine. I did educate her that this could be dehydrated her. Getting TSH, abd XR, small bowel follow through and trial of motegrity as she has failed prune juice, miralax, senna, lactulose, ex lax, fiber and colace. ROV 3 weeks. Orders: Orders XR abdomen w decubitus Today K59.00 - Constipation, unspecified TSH reflex Free T4 Today K59.00 - Constipation, unspecified FL upper GI small bowel Today K59.00 - Constipation, unspecified Medications: New prucalopride (Motegrity) 1 mg PO DAILY 30 tabs 3RF K59.00 - Constipation, unspecified Laboratory Tests 08/12/23 10:16 TSH 0.65 LABS: X-RAY OF THE ABDOMEN 08/12/23 FINDINGS: Numerous clips to the upper abdomen and central abdomen consistent previous surgery. The bowel gas pattern is notable for top normal small bowel loops centrally without bowel wall thickening or air fluid levels. No evidence for any ileus or obstruction. No unusual soft tissue calcifications are noted. The bones are unremarkable. Right hip arthroplasty changes noted. XR/XR abdomen w decubitus IMPRESSION: Nonspecific bowel gas pattern as above. No evidence for obstruction. UPPER GI WITH SMALL-BOWEL FOLLOW-THROUGH October 12, 2023 scheduled TODAY'S VISIT She is doing better with the motegrity, but still has to push. Will increase from 1mg to 2mg. She has the barium swallow scheduled in October, and I will see her after this study to go over it and to evaluate the increased dose. ROV after barium swallow. [facility] Medical History Arthritis Renal calculi Post-influenza syndrome Tremor Peripheral vascular disease Right bundle branch block (RBBB) Aortic valve calcification Mitral annular calcification Nocturnal hypoxemia COPD (chronic obstructive pulmonary disease) Restrictive lung disease Lymphedema Stasis edema of both lower extremities Hip pain, right Nail fungus Chronic GERD Depression, major, recurrent Hypertension, essential Surgical History History of surgery on lower extremity (01/25/23) History of surgery H/O colonoscopy S/P gastric bypass History of cataract extraction History of total hip arthroplasty History of bilateral tubal ligation History of tonsillectomy Family History Father No problems noted. Mother Alzheimer's disease Maternal Grandmother Cancer Maternal Grandfather No problems noted. Paternal Grandfather No problems noted. Paternal Grandmother No problems noted. Maternal Aunt Cancer Sister Colon cancer Son No problems noted. Daughter No problems noted. Social History Household Members: Children Household Members Other:: daughter Housing: House Housing Other:: mobile home Are you a primary managed care analyst to a significant other at home: No Do you presently have visiting nurse or other home services: Yes Alcohol intake: never Patient Tobacco Use Status: Former Tobacco user Quit Date: age 67 Tobacco use type: Cigarette Years Smoked: 38 e-Cigarette/Vaping Use: Currently Using Second Hand Smoke Exposure: No Advance Directives Date on File: 03/13/15 service: No Current occupational status: retired and other Current occupation: right handed Cognitive needs: No Hearing needs: No Vision needs: No Review of Systems ENT Reports Normal hearing present Neuro Reports Normal hearing present and Denies Abnormal speech present Physical Exam Vital Signs: Last Vital Signs Pulse 80 09/01/23 08:41 BP 143/69 H 09/01/23 08:41 BMI result Body Mass Index 42.5 Const General: cooperative, no acute distress, well developed and well groomed Nutritional Appearance: well nourished and obese Orientation/consciousness: oriented to person, oriented to place and oriented to time Limitations: No language barrier HEENT Head: Yes normocephalic and Yes atraumatic Eyes General: appearance normal, both eyes and all related structures Pupils: Equal, round and reactive pupils present Neck Neck: Yes normal visual inspection and Yes no lymphadenopathy Thyroid: Thyroid normal Resp Effort & Inspection: normal respiratory effort and able to speak in complete sentences Auscultation: clear to auscultation bilaterally Cardio Rate: regular rate Rhythm: regular rhythm Heart sounds: Normal, physiologic split S2 sound present Peripheral pulses: radial pulses present and posterior tibial pulses present GI Inspection: No distended, Yes Abdominal panniculus present and Yes obesity Palpation (GI): Soft to palpation, nontender, no guarding, not rigid and No hepatosplenomegaly present Percussion: Yes normal to percussion Auscultation: normal bowel sounds Rectal Exam - Female: deferred Skin General skin exam: no rashes or lesions noted, turgor normal, skin not dry, no jaundice, No spider nevi and no striae Rashes: no rashes Nails: normal Neuro General: oriented to person, oriented to place and oriented to time Cranial nerves: Yes Equal, round and reactive pupils present and Yes Normal hearing present Speech: No Abnormal speech present Extrem General: Yes normal to inspection, No clubbing, No cyanosis and No edema Psych Thought process: Normal thought process present and not confabulating Thought content: Normal thought content present Insight: Good insight present (Psych) Judgement: Good judgement present (Psych) Results Reviewed Results Reviewed: 08/12/23 10:16 TSH 0.65 LABS: X-RAY OF THE ABDOMEN 08/12/23 FINDINGS: Numerous clips to the upper abdomen and central abdomen consistent previous surgery. The bowel gas pattern is notable for top normal small bowel loops centrally without bowel wall thickening or air fluid levels. No evidence for any ileus or obstruction. No unusual soft tissue calcifications are noted. The bones are unremarkable. Right hip arthroplasty changes noted. XR/XR abdomen w decubitus IMPRESSION: Nonspecific bowel gas pattern as above. No evidence for obstruction. Assessment & Plan Assessment & Plan (1) Constipation: Code(s): K59.00 - Constipation, unspecified Category: Medical Plan She is doing better with the motegrity, but still has to push. Will increase from 1mg to 2mg. She has the barium swallow scheduled in October, and I will see her after this study to go over it and to evaluate the increased dose. ROV after barium swallow. She continues on her pantoprazole 40 mg once a day and this seems to be controlling her GERD. Medications: New prucalopride (Motegrity) 2 mg PO DAILY 30 tabs 6RF K59.00 - Constipation, unspecified Discontinued prucalopride (Motegrity) Discontinued Reason: Doctor's Order 1 mg PO DAILY 30 tabs 3RF K59.00 - Constipation, unspecified Coding Level of Care Code Est Pt Level 3 (83742) Diagnoses Constipation K59.00
== END 2023-09-01 09:04 | disposition home or self-care (01) ==
PROVIDERS: PCP Internal Medicine; Visit Provider Nurse Practitioner
DX: K59.00 Constipation, unspecified (principal)
CPT/HCPCS: 99213

== ENCOUNTER → 2023-09-01 08:39 | Outpatient (BNVA) | payer MEDICARE, MEDICAID, SELFPAY | PROVIDERS: PCP Internal Medicine; Visit Provider Nurse Practitioner | DX: K59.00 Constipation, unspecified (principal) | CPT/HCPCS: 99212 ==

== ENCOUNTER 2023-09-03 10:53 | Outpatient (AMB) | payer MEDICARE, MEDICAID, SELFPAY ==
--- NOTE | 2023-09-03 11:17 | A.OFFVIS_ITS ---
Vital Signs 3 09/03/23 11:26 Height 5 ft Weight 218 lb 4 oz BMI 42.6 BP 197/88 H Blood Pressure Location Lt brachial Position Sitting Pulse 76 Intake Visit Reasons: wound is leaking Intake Note: Patient is seen in office for wound check , post right lower leg debridment. Patient c/o: leaking for the past 4 days, changing dressing 3 times daily, is on antbx since Wednesday, redness, painful when pressing on it Health Information Internship Required: No Accompanied by: Self / Same As Patient Allergies sucralfate [Carafate] Allergy (Intermediate, Verified 09/03/23 11:22) hives NSAIDS (Non-Steroidal Anti-Inflamma Adverse Reaction (Intermediate, Verified 09/03/23 11:22) cannot take due to gastric bypass history Medication List - Last Reconciled 09/03/23 by Vini Mosquera MD [2 inch cloth tape As directed] [4x4 sterile gauze pads As directed] alendronate (Fosamax) 70 mg PO QWEEK 90 days aripiprazole 10 mg PO QAM ascorbic acid (vitamin C) 1,000 mg PO QAM bupropion HCl XL (Wellbutrin XL) 300 mg PO QAM bupropion HCl XL 150 mg PO QAM calcium lbx-mit-H4-Zn-[employer] helicopter-fortino [id number] ln-cy-tefm-mg (Calcium Citrate Plus) 1 tab PO QAM cephalexin 500 mg PO BID cholecalciferol (vitamin D3) 50 mcg PO QPM escitalopram oxalate (Lexapro) 20 mg PO QAM ferrous sulfate (Feosol) 325 mg PO QPM hydrochlorothiazide 25 mg PO QAM lorazepam 0.5 mg PO DAILY PRN multivitamin (Daily Multi-Vitamin tablet) 1 tab PO QPM pantoprazole 40 mg PO QPM propranolol ER 60 mg PO BEDTIME prucalopride (Motegrity) 2 mg PO DAILY ropinirole 0.25 mg PO BEDTIME sennosides-docusate sodium 8.6-50 mg (Senexon-S) 2 tabs PO BEDTIME PRN HPI Comments Details: 77-year-old female patient returning for re-evaluation of a right hip lesion. She reports that the lesion was healed until approximately 4 days ago when she began to swelling and pain. She initially thought it was due to sitting on a chair with an arm rest which was rubbing against her hip. She has had discharge for the past 4 days which requires dressing changes approximately 4 times daily. Discharge is mainly clear liquid. She denies any fever or chills. [facility] Medical History Arthritis Renal calculi Post-influenza syndrome Tremor Peripheral vascular disease Right bundle branch block (RBBB) Aortic valve calcification Mitral annular calcification Nocturnal hypoxemia COPD (chronic obstructive pulmonary disease) Restrictive lung disease Lymphedema Stasis edema of both lower extremities Hip pain, right Nail fungus Chronic GERD Depression, major, recurrent Hypertension, essential Surgical History History of surgery on lower extremity (01/25/23) History of surgery H/O colonoscopy S/P gastric bypass History of cataract extraction History of total hip arthroplasty History of bilateral tubal ligation History of tonsillectomy Family History Father No problems noted. Mother Alzheimer's disease Maternal Grandmother Cancer Maternal Grandfather No problems noted. Paternal Grandfather No problems noted. Paternal Grandmother No problems noted. Maternal Aunt Cancer Sister Colon cancer Son No problems noted. Daughter No problems noted. Social History Household Members: Children Household Members Other:: daughter Housing: House Housing Other:: mobile home Are you a primary long term acute care registered nurse to a significant other at home: No Do you presently have visiting nurse or other home services: Yes Alcohol intake: never Patient Tobacco Use Status: Former Tobacco user Quit Date: age 67 Tobacco use type: Cigarette Years Smoked: 38 e-Cigarette/Vaping Use: Currently Using Second Hand Smoke Exposure: No Advance Directives Date on File: 03/13/15 service: No Current occupational status: retired and other Current occupation: right handed Cognitive needs: No Hearing needs: No Vision needs: No Review of Systems Const All systems reviewed & are unremarkable except as noted in HPI and below Physical Exam Const General: comfortable Nutritional Appearance: well nourished Orientation/consciousness: patient oriented x3 Limitations: no limitations Resp Effort & Inspection: normal respiratory effort Neuro General: patient oriented x3 Extrem Other: Right hip wound is now open in the central portion of the scar tissue. There is extensive amount of scar noted. Gentle probing with a cotton swab reveals approximately 2 cm deep wound. No deeper tract could be identified. No evidence of an underlying abscess. Wound was packed with a 2 x 2 gauze followed by fluff gauze and paper tape. Upper/lower leg/hip images: 2 1. Site of open wound Assessment & Plan Assessment & Plan (1) Wound, open, hip or thigh with complication: Code(s): S71.009A - Unspecified open wound, unspecified hip, initial encounter; S71.109A - Unspecified open wound, unspecified thigh, initial encounter Category: Medical Qualifiers: Encounter type: initial encounter Laterality: right Qualified Code(s): S71.001A - Unspecified open wound, right hip, initial encounter; S71.101A - Unspecified open wound, right thigh, initial encounter Plan Patient with an open wound which developed in the site of previously healed right hip wound. There was extensive scar tissue in this location and it may have been irritated by her chair rubbing against the scar tissue. Probing of the wound reveals a 2 cm deep pocket. This was packed with gauze and covered with dry sterile dressings. She will return in 2 weeks for reassessment. If there remains an open pocket she may require returned to the OR for further debridement. Patient expressed understanding and agrees with the plan. She will need dressing change material including 4 x 4 gauze and tape. Medications: New 2 [4x4 sterile gauze pads] As directed 1 ea 0RF S71.001A - Unspecified open wound, right hip, initial encounter [2 inch cloth tape] As directed 1 ea 0RF S71.001A - Unspecified open wound, right hip, initial encounter Coding Level of Care Code Est Pt Level 3 (42356) Diagnoses Open wound of right hip and thigh with complication, initial encounter S71.001A; S71.101A Encounter type: initial encounter Laterality: right
[2023-09-03 11:26] VITALS: BP 197/88; PULSE 76; BMI 42.6
== END 2023-09-03 11:35 | disposition home or self-care (01) ==
PROVIDERS: PCP Internal Medicine; Visit Provider Surgery
DX: S71.001A Unspecified open wound, right hip, initial encounter (principal); S71.101A Unspecified open wound, right thigh, initial encounter
CPT/HCPCS: 99214

== ENCOUNTER → 2023-09-03 10:53 | Outpatient (BNVA) | payer MEDICARE, MEDICAID, SELFPAY | PROVIDERS: PCP Internal Medicine; Visit Provider Surgery | DX: S71.001D Unspecified open wound, right hip, subsequent encounter (principal); S71.101D Unspecified open wound, right thigh, subsequent encounter; X58.XXXD Exposure to other specified factors, subsequent encounter | CPT/HCPCS: 99212 ==

== ENCOUNTER 2023-09-21 08:54 | Outpatient (AMB) | payer MEDICARE, MEDICAID, SELFPAY ==
--- NOTE | 2023-09-21 09:01 | A.OFFVIS_ITS ---
Vital Signs 09/21/23 09:08 Height 5 ft Weight 212 lb 15.465 oz BMI 41.6 BP 130/80 Blood Pressure Location Lt brachial Position Sitting Intake Visit Reasons: 2 week follow up wound is leaking Intake Note: Patient is seen in office for 2 weeks follow up visit, post right lower leg debridment. Patient c/o: continued discharge, less than last visit, changind dressing 3 times a day, redness around the area Associate Veterinarian Required: No Accompanied by: Self / Same As Patient Allergies sucralfate [Carafate] Allergy (Intermediate, Verified 09/21/23 09:07) hives NSAIDS (Non-Steroidal Anti-Inflamma Adverse Reaction (Intermediate, Verified 09/21/23 09:07) cannot take due to gastric bypass history Medication List - Last Reconciled 09/21/23 by Vini Mosquera MD [2 inch cloth tape As directed] [4x4 sterile gauze pads As directed] alendronate (Fosamax) 70 mg PO QWEEK 90 days aripiprazole 10 mg PO QAM ascorbic acid (vitamin C) 1,000 mg PO QAM bupropion HCl XL (Wellbutrin XL) 300 mg PO QAM bupropion HCl XL 150 mg PO QAM calcium rxc-hrl-P5-Zn-music copyist-fortino [phone] ig-rq-dcfx-mg (Calcium Citrate Plus) 1 tab PO QAM cephalexin 500 mg PO BID cholecalciferol (vitamin D3) 50 mcg PO QPM escitalopram oxalate (Lexapro) 20 mg PO QAM ferrous sulfate (Feosol) 325 mg PO QPM hydrochlorothiazide 25 mg PO QAM lorazepam 0.5 mg PO DAILY PRN multivitamin (Daily Multi-Vitamin tablet) 1 tab PO QPM pantoprazole 40 mg PO QPM propranolol ER 60 mg PO BEDTIME prucalopride (Motegrity) 2 mg PO DAILY ropinirole 0.25 mg PO BEDTIME sennosides-docusate sodium 8.6-50 mg (Senexon-S) 2 tabs PO BEDTIME PRN HPI Comments Details: 77-year-old female patient returning for re-evaluation of a right hip lesion. She reports that the lesion was healed until approximately 2 weeks ago when she began to swelling and pain. She initially thought it was due to sitting on a c hair with an arm rest which was rubbing against her hip. She was evaluated and found to have a small tract below the skin with surrounding scar tissue. No deep tract could be identified. The wound was packed with gauze dry sterile dressings. No deeper infection could be identified. Since her last visit the pocket seems smaller with the overlying skin is more excoriated from moisture. She denies any fever or chills. Discharge is clear to brownish in color. [facility] Medical History Arthritis Renal calculi Post-influenza syndrome Tremor Peripheral vascular disease Right bundle branch block (RBBB) Aortic valve calcification Mitral annular calcification Nocturnal hypoxemia COPD (chronic obstructive pulmonary disease) Restrictive lung disease Lymphedema Stasis edema of both lower extremities Hip pain, right Nail fungus Chronic GERD Depression, major, recurrent Hypertension, essential Surgical History History of surgery on lower extremity (01/25/23) History of surgery H/O colonoscopy S/P gastric bypass History of cataract extraction History of total hip arthroplasty History of bilateral tubal ligation History of tonsillectomy Family History Father No problems noted. Mother Alzheimer's disease Maternal Grandmother Cancer Maternal Grandfather No problems noted. Paternal Grandfather No problems noted. Paternal Grandmother No problems noted. Maternal Aunt Cancer Sister Colon cancer Son No problems noted. Daughter No problems noted. Social History Household Members: Children Household Members Other:: daughter Housing: House Housing Other:: mobile home Are you a primary special needs caregiver to a significant other at home: No Do you presently have visiting nurse or other home services: Yes Alcohol intake: never Patient Tobacco Use Status: Former Tobacco user Quit Date: age 67 Tobacco use type: Cigarette Years Smoked: 38 e-Cigarette/Vaping Use: Currently Using Second Hand Smoke Exposure: No Advance Directives Date on File: 03/13/15 service: No Current occupational status: retired and other Current occupation: right handed Cognitive needs: No Hearing needs: No Vision needs: No Review of Systems Const All systems reviewed & are unremarkable except as noted in HPI and below Physical Exam Vital Signs: Last Vital Signs BP 130/80 09/21/23 09:08 BMI result Body Mass Index 41.6 Const General: comfortable Nutritional Appearance: well nourished Orientation/consciousness: patient oriented x3 Limitations: no limitations Resp Effort & Inspection: normal respiratory effort Neuro General: patient oriented x3 Extrem Other: Right hip wound is now open in the central portion of the scar tissue. There is extensive amount of scar noted. Gentle probing with a cotton swab reveals approximately 1.5 cm deep wound. No deeper tract could be identified. No evidence of an underlying abscess. Wound was packed with a 2 x 2 gauze followed by fluff gauze and paper tape. Assessment & Plan Assessment & Plan (1) Wound, open, hip or thigh with complication: Code(s): S71.009A - Unspecified open wound, unspecified hip, initial encounter; S71.109A - Unspecified open wound, unspecified thigh, initial encounter Category: Medical Qualifiers: Encounter type: initial encounter Laterality: right Qualified Code(s): S71.001A - Unspecified open wound, right hip, initial encounter; S71.101A - Unspecified open wound, right thigh, initial encounter Plan 77-year-old female patient with a chronic wound of the right hip which was previouslysed until approximately 2 weeks ago when once again opened. She has continue drainage with extensive scar tissue noted. I recommended a wide local excision of the scar tissue with primary closure of the wound. After a di scussion of the procedure, alternatives and risks, she consents to the surgery. Coding Level of Care Code Est Pt Level 3 (33579) Diagnoses Open wound of right hip and thigh with complication, initial encounter S71.001A; S71.101A Encounter type: initial encounter Laterality: right
[2023-09-21 09:08] VITALS: BP 130/80; BMI 41.6
== END 2023-09-21 09:14 | disposition home or self-care (01) ==
PROVIDERS: PCP Internal Medicine; Visit Provider Surgery
DX: S71.001A Unspecified open wound, right hip, initial encounter (principal); S71.101A Unspecified open wound, right thigh, initial encounter
CPT/HCPCS: 99213

== ENCOUNTER → 2023-09-21 08:54 | Outpatient (BNVA) | payer MEDICARE, MEDICAID, SELFPAY | PROVIDERS: PCP Internal Medicine; Visit Provider Surgery | DX: S71.101A Unspecified open wound, right thigh, initial encounter (principal); S71.001A Unspecified open wound, right hip, initial encounter | CPT/HCPCS: 99212 ==

== ENCOUNTER 2023-09-22 08:54 | Outpatient (AMB) | payer MEDICARE, MEDICAID, SELFPAY ==
[2023-09-22 09:13] VITALS: BP 120/70; PULSE 55; O2SAT 98; BMI 41.3
--- NOTE | 2023-09-22 09:13 | A.OFFVIS_ITS ---
Vital Signs 09/22/23 09:13 Height 5 ft Weight 211 lb 10.3 oz BMI 41.3 BP 120/70 Blood Pressure Location Lt brachial Position Sitting Pulse 55 Pulse Source Monitor Pulse Oximetry (%) 98 Oxygen Delivery Method Room Air Intake Visit Reasons: Pre-op/Wide excision Rt hip scar/Dr. Mosquera 10/19 Allergies sucralfate [Carafate] Allergy (Intermediate, Verified 09/21/23 09:07) hives NSAIDS (Non-Steroidal Anti-Inflamma Adverse Reaction (Intermediate, Verified 09/21/23 09:07) cannot take due to gastric bypass history Medication List - Last Reconciled 09/22/23 by Bruce Jimenez MD [2 inch cloth tape As directed] [4x4 sterile gauze pads As directed] alendronate (Fosamax) 70 mg PO QWEEK 90 days aripiprazole 10 mg PO QAM ascorbic acid (vitamin C) 1,000 mg PO QAM bupropion HCl XL (Wellbutrin XL) 300 mg PO QAM bupropion HCl XL 150 mg PO QAM calcium [id number]-Zn-fluoroscope operator-fortino [id number] fp-au-[id number]-mg (Calcium Citrate Plus) 1 tab PO QAM cholecalciferol (vitamin D3) 50 mcg PO QPM escitalopram oxalate (Lexapro) 20 mg PO QAM ferrous sulfate (Feosol) 325 mg PO QPM hydrochlorothiazide 25 mg PO QAM lorazepam 0.5 mg PO DAILY PRN multivitamin (Daily Multi-Vitamin tablet) 1 tab PO QPM pantoprazole 40 mg PO QPM propranolol ER 60 mg PO BEDTIME prucalopride (Motegrity) 2 mg PO DAILY ropinirole 0.25 mg PO BEDTIME sennosides-docusate sodium 8.6-50 mg (Senexon-S) 2 tabs PO BEDTIME PRN HPI Comments Details: Mayra returns for follow up. Seen last year regarding an abnormal EKG/echocardiogram. No history of any coronary artery disease or myocardial infarction or cardiomyopathy or in fact any cardiac issues whatsoever. She does not get any clear-cut anginal-type symptoms. Some shortness of breath with activity but she is also overweight. It seems that she has lymphedema issues. Otherwise, there is a history of bariatric surgery in the past. Also she was apparently using CPAP many years ago for restless leg syndrome. Since last seen, no new concerns. She plans to go for excision of right hip scar under general anesthesia and hence here for preoperative evaluation. [facility] Medical History Arthritis Renal calculi Post-influenza syndrome Tremor Peripheral vascular disease Right bundle branch block (RBBB) Aortic valve calcification Mitral annular calcification Nocturnal hypoxemia COPD (chronic obstructive pulmonary disease) Restrictive lung disease Lymphedema Stasis edema of both lower extremities Hip pain, right Nail fungus Chronic GERD Depression, major, recurrent Hypertension, essential Surgical History History of surgery on lower extremity (01/25/23) History of surgery H/O colonoscopy S/P gastric bypass History of cataract extraction History of total hip arthroplasty History of bilateral tubal ligation History of tonsillectomy Family History Father No problems noted. Mother Alzheimer's disease Maternal Grandmother Cancer Maternal Grandfather No problems noted. Paternal Grandfather No problems noted. Paternal Grandmother No problems noted. Maternal Aunt Cancer Sister Colon cancer Son No problems noted. Daughter No problems noted. Social History Household Members: Children Household Members Other:: daughter Housing: House Housing Other:: mobile home Are you a primary healthcare manager to a significant other at home: No Do you presently have visiting nurse or other home services: Yes Alcohol intake: never Patient Tobacco Use Status: Former Tobacco user Quit Date: age 67 Tobacco use type: Cigarette Years Smoked: 38 e-Cigarette/Vaping Use: Currently Using Second Hand Smoke Exposure: No Advance Directives Date on File: 03/13/15 service: No Current occupational status: retired and other Current occupation: right handed Cognitive needs: No Hearing needs: No Vision needs: No Review of Systems Const Denies weakness ENT Denies dizziness Card Denies chest pain, Denies chest pain with activity, Denies syncope, Denies rapid heart rate, Denies pedal edema, Denies edema, Denies leg edema, Denies ligh theadedness, Denies palpitations, Denies dyspnea, Denies dyspnea on exertion and Denies orthopnea Resp Denies cough, Denies dyspnea and Denies dyspnea on exertion GI Denies hematochezia and Denies change in stool character Musc Denies abnormal gait, Denies muscle cramps, Denies muscle weakness, Denies numbness, Denies radiating pain into limb and Denies tingling Neuro Denies Abnormal speech present, Denies abnormal gait, Denies dizziness, Denies syncope, Denies numbness, Denies tingling and Denies weakness Endo Denies palpitations Physical Exam Vital Signs: Last Vital Signs Pulse 55 09/22/23 09:13 BP 120/70 09/22/23 09:13 Pulse Ox 98 09/22/23 09:13 Oxygen Delivery Method Room Air 09/22/23 09:13 BMI result Body Mass Index 41.3 Const General: comfortable and no acute distress Orientation/consciousness: patient oriented x3 HEENT Other: Unremarkable Head: Yes normal to inspection Neck Neck: Yes normal visual inspection Chest Chest palpation & inspection: normal inspection of the chest Resp Auscultation: clear to auscultation bilaterally Cardio Palpation: normal PMI Heart sounds: S1 normal heart sound present, S2 normal heart sound present, no gallops, Murmur heart sound present systolic early, I/ and at the right sternal border and no rubs GI Palpation (GI): Soft to palpation Back/Spine/Pelvis Other: unremarkable Skin General skin exam: no rashes or lesions noted Neuro General: patient oriented x3 Speech: No Abnormal speech present Extrem Other: 3+ edema lower extremities with chronic changes General: Yes normal to inspection Psych Mental Status: mental status grossly normal Office Procedures EKG Details: EKG with sinus bradycardia at 55/Min; right bundle-branch block pattern. [id number], Complete Assessment & Plan Assessment & Plan (1) Right bundle branch block: Code(s): I45.10 - Unspecified right bundle-branch block Category: Medical (2) Morbid obesity due to excess calories: Code(s): E66.01 - Morbid (severe) obesity due to excess calories Category: Medical (3) Lymphedema: Code(s): I89.0 - Lymphedema, not elsewhere classified Category: Medical (4) Aortic valve calcification: Code(s): I35.9 - Nonrheumatic aortic valve disorder, unspecified Category: Medical (5) Mitral annular calcification: Code(s): I34.81 - Nonrheumatic mitral (valve) annulus calcification Category: Medical (6) Preoperative cardiovascular examination: Code(s): Z01.810 - Encounter for preprocedural cardiovascular examination Category: Medical Plan Cardiac studies reviewed. Echocardiogram with LVEF of 65-70%; grade 2 diastolic dysfunction; moderate aortic valve calcification but no significant dysfunction; moderate mitral annular calcification. Myocardial perfusion imaging study shows likely normal perfusion. Gated LVEF > 70% during stress and rest. Home sleep study is negative for SOULEYMANE. In the absence of any symptoms, no specific management. Risk factor modification as much able. Doubt if she can lose any weight. Otherwise, blood pressure seems stable today. With regard to planned surgery, may proceed as planned. Intermediate risk. Follow-up in 1 year. Orders: Orders CA echo transthoracic complete 1 Year I35.9 - Nonrheumatic aortic valve disorder, unspecified Coding Level of Care Code Est Pt Level 4 (49733) Diagnoses Right bundle branch block I45.10 Morbid obesity due to excess calories E66.01 Lymphedema I89.0 Aortic valve calcification I35.9 Mitral annular calcification I34.81 Preoperative cardiovascular examination Z01.810 CPT Codes EKG - CPT: 72035-[id number], Complete ([id number])
== END 2023-09-22 09:35 | disposition home or self-care (01) ==
PROVIDERS: PCP Internal Medicine; Visit Provider Internal Medicine
DX: I45.10 Unspecified right bundle-branch block (principal); E66.01 Morbid (severe) obesity due to excess calories; I89.0 Lymphedema, not elsewhere classified; I35.9 Nonrheumatic aortic valve disorder, unspecified; I34.81 Nonrheumatic mitral (valve) annulus calcification; Z01.810 Encounter for preprocedural cardiovascular examination
CPT/HCPCS: 93010; 99214

== ENCOUNTER → 2023-09-22 08:54 | Outpatient (BNVA) | payer MEDICARE, MEDICAID, SELFPAY | PROVIDERS: PCP Internal Medicine; Visit Provider Internal Medicine | DX: Z01.810 Encounter for preprocedural cardiovascular examination (principal); I45.10 Unspecified right bundle-branch block; I89.0 Lymphedema, not elsewhere classified; I35.9 Nonrheumatic aortic valve disorder, unspecified; I34.81 Nonrheumatic mitral (valve) annulus calcification; E66.01 Morbid (severe) obesity due to excess calories; Z68.41 Body mass index [BMI] 40.0-44.9, adult | CPT/HCPCS: 93005; 99212 ==

== ENCOUNTER 2023-10-12 08:10 | Outpatient (REF) | payer MEDICARE, MEDICAID, SELFPAY ==
--- NOTE | ~2023-10-12 | FL_ITS ---
EXAMINATION: XR UPPER GI SERIES WITH SMALL BOWEL FOLLOW-THROUGH CLINICAL INFORMATION: Constipation. History of gastric bypass. COMPARISON: Upper GI 2018. TECHNIQUE: Fluoroscopic air contrast upper GI examination was performed utilizing standard techniques with thin and thick barium and effervescent granules. Numerous spot images were obtained. This was followed by small bowel follow-through using overhead images. 30 minutes, with intermittent fluoroscopic visualization and spotting of the terminal ileum and any suspicious areas. FINDINGS: UPPER GI EXAMINATION: Dual and single contrast images of the esophagus demonstrate normal caliber, contour, and mucosal pattern. No evidence of stricture, mass, or ulcerations identified. Esophageal peristalsis is moderately disorganized. Mild cricopharyngeal achalasia present. There is mild to moderate narrowing of the GE junction above the hiatal hernia. A small type I hiatal hernia is present. No significant gastroesophageal reflux was seen during the course of the examination and on reflux views. Dual contrast and single contrast images of the stomach demonstrated a contour consistent with prior history of a Mario Alberto-en-Y gastric bypass. The gastrojejunostomy is widely patent. No evidence of mass or ulcerations. Contrast freely passed into the Mario Alberto limb without difficulty. No reflux into the excluded stomach or duodenal sweep. SMALL BOWEL FOLLOW-THROUGH: Manager Military supine abdomen in radiograph demonstrates right hip replacement which appears to have been revised for loosening. No current acute finding. Enthesophyte atrophic changes are present throughout the bilateral greater trochanters and iliac wings. Arthritic changes are present throughout the spine, most severe in the lumbar region. There are several chronic appearing compression deformities. There are surgical clips in the left lower quadrant and left upper quadrant. Mild linear scarring is noted in both lung bases. The heart is prominent and may be enlarged.1 The are no dilated small bowel segments. Contrast is seen in the colon up to the splenic flexure at the end of the examination, by 10 minutes. No masses or strictures are seen. No significant thickening of the valvulae conniventes. Normal peristalsis of the small bowel is evident. There is a small ileal diverticulum in the terminal ileal region. TI otherwise has a normal appearance. FLUOROSCOPY TIME: 4 minutes 12 seconds Number of Spot Images: 10 Number of Cine: 8 DOSE AREA PRODUCT: 3253 uGy-m2 (microgray-meter squared) FL/FL upper GI w air w SBFT IMPRESSION: 1. Mild cricopharyngeal achalasia. 2. Esophageal dysmotility, rather marked. 3. Mild to moderate narrowing of the GE junction above the hiatal hernia that may represents achalasia. A benign short segment stricture cannot be ruled out. Recommend correlation with EGD. 4. Small type I hiatal hernia. 5. Status post Mario Alberto-en-Y gastric bypass. The gastrojejunostomy is widely patent. No complication evident. No reflux into the excluded duodenum or stomach 6. No dilated small bowel segments. No masses or strictures are seen. 7. Contrast is seen in the colon up to the splenic flexure within 10 minutes. This is slightly more brisk than would be expected, although of unsure etiology in the setting of gastric bypass. This procedure was performed by Terrence Stephens PA-C, and supervised by Dr. Em
== END 2023-10-12 08:11 | disposition home or self-care (01) ==
LOC: HO.XRAY 08:10
PROVIDERS: PCP Internal Medicine; Visit Provider Nurse Practitioner
DX: K59.00 Constipation, unspecified (principal)
CPT/HCPCS: 74246; 74248

== ENCOUNTER → 2023-10-12 08:12 | Outpatient (BNV) | payer MEDICARE, MEDICAID, SELFPAY | PROVIDERS: PCP Internal Medicine; Visit Provider Physician Assistant Surgical | DX: K59.00 Constipation, unspecified (principal); Z98.84 Bariatric surgery status | CPT/HCPCS: 74246 ==

== ENCOUNTER 2023-10-19 08:27 | Outpatient (AMB) | payer MEDICARE, MEDICAID, SELFPAY ==
--- NOTE | 2023-10-19 08:33 | MHC.OFFVIS ---
Vital Signs 10/19/23 08:34 Height 5 ft Weight 205 lb BMI 40.0 BP 108/48 L Blood Pressure Location Rt brachial Position Sitting Respiration 66 H Intake Visit Reasons: 2 month follow up Intake Note: Mayra returns to in office 2 months follow up of constipation. CC: Patient states that she is doing better and that the Motegrity has been working. Per patient is not normal but it's close . 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 Will increase from 1mg to 2mg. She has the barium swallow scheduled in October, and I will see her after this study to go over it and to evaluate the increased dose. ROV after barium swallow. She continues on her pantoprazole 40 mg once a day and this seems to be controlling her GERD. Medications: New prucalopride (Motegrity) 2 mg PO DAILY 30 tabs 6RF K59.00 - Constipation, unspecified Discontinued prucalopride (Motegrity) Discontinued Reason: Doctor's Order 1 mg PO DAILY 30 tabs 3RF K59.00 - Constipation, unspecified UPPER GI WITH SMALL-BOWEL FOLLOW-THROUGH 10/15/23 FINDINGS: UPPER GI EXAMINATION: Dual and single contrast images of the esophagus demonstrate normal caliber, contour, and mucosal pattern. No evidence of stricture, mass, or ulcerations identified. Esophageal peristalsis is moderately disorganized. Mild cricopharyngeal achalasia present. There is mild to moderate narrowing of the GE junction above the hiatal hernia. A small type I hiatal hernia is present. No significant gastroesophageal reflux was seen during the course of the examination and on reflux views. Dual contrast and single contrast images of the stomach demonstrated a contour consistent with prior history of a Mario Alberto-en-Y gastric bypass. The gastrojejunostomy is widely patent. No evidence of mass or ulcerations. Contrast freely passed into the Mario Alberto limb without difficulty. No reflux into the excluded stomach or duodenal sweep. SMALL BOWEL FOLLOW-THROUGH: Straight Pin Making Machine Operator supine abdomen in radiograph demonstrates right hip replacement which appears to have been revised for loosening. No current acute finding. Enthesophyte atrophic changes are present throughout the bilateral greater trochanters and iliac wings. Arthritic changes are present throughout the spine, most severe in the lumbar region. There are several chronic appearing compression deformities. There are surgical clips in the left lower quadrant and left upper quadrant. Mild linear scarring is noted in both lung bases. The heart is prominent and may be enlarged.1 The are no dilated small bowel segments. Contrast is seen in the colon up to the splenic flexure at the end of the examination, by 10 minutes. No masses or strictures are seen. No significant thickening of the valvulae conniventes. Normal peristalsis of the small bowel is evident. There is a small ileal diverticulum in the terminal ileal region. TI otherwise has a normal appearance. FLUOROSCOPY TIME: 4 minutes 12 seconds Number of Spot Images: 10 Number of Cine: 8 DOSE AREA PRODUCT: 3253 uGy-m2 (microgray-meter squared) FL/FL upper GI w air w SBFT IMPRESSION: 1. Mild cricopharyngeal achalasia. 2. Esophageal dysmotility, rather marked. 3. Mild to moderate narrowing of the GE junction above the hiatal hernia that may represents achalasia. A benign short segment stricture cannot be ruled out. Recommend correlation with EGD. 4. Small type I hiatal hernia. 5. Status post Mario Alberto-en-Y gastric bypass. The gastrojejunostomy is widely patent. No complication evident. No reflux into the excluded duodenum or stomach 6. No dilated small bowel segments. No masses or strictures are seen. 7. Contrast is seen in the colon up to the splenic flexure within 10 minutes. This is slightly more brisk than would be expected, although of unsure etiology in the setting of gastric bypass. TODAY'S VISIT She finds she is having some more trouble swallowing things tend to get hung up right above the sternal notch which correlates well with the question of cricopharyngeal achalasia on the barium swallow. I think were going to get an endoscopy because there also was a question some thickening at the GE junction. She does not have any problems with subjective heartburn, but it is possible she has a stricture that needs dilation. It is also possible that this is a variant of presbyesophagus which would be more difficult to treat. We reviewed safe swallowing precautions which she generally follows because she does not have any teeth. She finds the Motegrity 2 mg has made her stooling ?almost normal. ? this is the best result we have had so far so she is happy with continuing this treatment. She also occasionally uses her senna which is acceptable. She continues on her pantoprazole 40 mg once a day. Return office visit in 6 months and of course I will see her after the endoscopy. [facility] Medical History Preoperative cardiovascular examination Change in bowel movement Traumatic seroma of right thigh Hip pain, right Postprocedural seroma of skin and subcutaneous tissue following other procedure Open wound of right hip and thigh Peripheral vascular disease Right rib fracture Menopause Pain management Pain management contract agreement Open wound of right lower leg with complication Shortness of breath Cough Edema Influenza A H1N1 infection Hospital discharge follow-up Cellulitis of right leg Varicose veins of right lower extremity with inflammation Enterococcus faecalis infection Abscess Hip pain, right Obesity Lymphedema Morbid obesity due to excess calories Pre-op evaluation Colon cancer screening Encounter for general adult medical examination with abnormal findings Medicare annual wellness visit, subsequent Family history of anesthesia complication Back pain Arthritis Renal calculi Post-influenza syndrome Tremor Peripheral vascular disease Right bundle branch block (RBBB) Aortic valve calcification Mitral annular calcification Nocturnal hypoxemia COPD (chronic obstructive pulmonary disease) Restrictive lung disease Stasis edema of both lower extremities Nail fungus Chronic GERD Depression, major, recurrent Hypertension, essential Surgical History History of total hip arthroplasty S/P gastric bypass History of surgery on lower extremity (01/25/23) History of surgery H/O colonoscopy History of cataract extraction History of bilateral tubal ligation History of tonsillectomy Family History Father No problems noted. Mother Alzheimer's disease Maternal Grandmother Cancer Maternal Grandfather No problems noted. Paternal Grandfather No problems noted. Paternal Grandmother No problems noted. Maternal Aunt Cancer Sister Colon cancer Son No problems noted. Daughter No problems noted. Social History Household Members: Children Household Members Other:: daughter Housing: House Housing Other:: mobile home Are you a primary resident care spec to a significant other at home: No Do you presently have visiting nurse or other home services: No Alcohol intake: never Patient Tobacco Use Status: Former Tobacco user Tobacco use type: Cigarette Years Smoked: 40 e-Cigarette/Vaping Use: Currently Using Second Hand Smoke Exposure: No Advance Directives Date on File: 03/13/15 service: No Current occupational status: retired and other Current occupation: right handed Cognitive needs: No Hearing needs: No Vision needs: No Review of Systems Const Denies fatigue, Denies fever(s), Denies night sweats, Denies poor appetite and Denies weight loss ENT Reports Normal hearing present, Denies dental pain, Reports dysphagia, Denies hearing loss, Denies mouth pain, Denies odynophagia, Denies throat swelling, Denies tongue swelling and Reports other (Dentition adequate) Card Reports no additional complaints Resp Reports no additional complaints GI Details: Denies abdominal pain, Denies melena, Denies bloating, Denies hematochezia, Reports constipation, Denies GI cramping, Reports dysphagia, Denies excessive flatus, Denies early satiety, Reports heartburn, Denies diarrhea, Denies nausea, Denies odynophagia, Denies vomiting and Denies hematemesis Skin/Breast Denies pruritus, Denies lesions, Denies rash and Denies jaundice Neuro Reports Normal hearing present and Denies Abnormal speech present Endo Denies fatigue Aller/Immun Denies throat swelling and Denies tongue swelling Physical Exam Vital Signs: Last Vital Signs Resp 66 H 10/19/23 08:34 BP 108/48 L 10/19/23 08:34 BMI result Body Mass Index 40.0 Const General: cooperative, no acute distress, well developed and well groomed Nutritional Appearance: well nourished and obese Orientation/consciousness: oriented to person, oriented to place and oriented to time Limitations: No language barrier HEENT Head: Yes normocephalic and Yes atraumatic Eyes General: appearance normal, both eyes and all related structures Pupils: Equal, round and reactive pupils present Neck Neck: Yes normal visual inspection and Yes no lymphadenopathy Thyroid: Thyroid normal Resp Effort & Inspection: normal respiratory effort and able to speak in complete sentences Auscultation: clear to auscultation bilaterally Cardio Rate: regular rate Rhythm: regular rhythm Heart sounds: Normal, physiologic split S2 sound present Peripheral pulses: radial pulses present and posterior tibial pulses present GI Inspection: No distended, Yes Abdominal panniculus present and Yes obesity Palpation (GI): Soft to palpation, nontender, no guarding, not rigid and No hepatosplenomegaly present Percussion: Yes normal to percussion Auscultation: normal bowel sounds Rectal Exam - Female: deferred Skin General skin exam: no rashes or lesions noted, turgor normal, skin not dry, no jaundice, No spider nevi and no striae Rashes: no rashes Nails: normal Neuro General: oriented to person, oriented to place and oriented to time Cranial nerves: Yes Equal, round and reactive pupils present and Yes Normal hearing present Speech: No Abnormal speech present Extrem General: Yes normal to inspection, No clubbing, No cyanosis and No edema Psych Appearance: grossly normal and well kempt Mental Status: mental status grossly normal Speech and movement: Normal speech and movement present Affect: normal affect Attitude: cooperative Thought process: Normal thought process present and not confabulating Thought content: Normal thought content present Insight: Fair insight present (Psych) and Limited insight present (Psych) Judgement: Fair judgement present (Psych) and Limited judgement present (Psych) Results Reviewed Results Reviewed: UPPER GI WITH SMALL-BOWEL FOLLOW-THROUGH 10/15/23 FINDINGS: UPPER GI EXAMINATION: Dual and single contrast images of the esophagus demonstrate normal caliber, contour, and mucosal pattern. No evidence of stricture, mass, or ulcerations identified. Esophageal peristalsis is moderately disorganized. Mild cricopharyngeal achalasia present. There is mild to moderate narrowing of the GE junction above the hiatal hernia. A small type I hiatal hernia is present. No significant gastroesophageal reflux was seen during the course of the examination and on reflux views. Dual contrast and single contrast images of the stomach demonstrated a contour consistent with prior history of a Mario Alberto-en-Y gastric bypass. The gastrojejunostomy is widely patent. No evidence of mass or ulcerations. Contrast freely passed into the Mario Alberto limb without difficulty. No reflux into the excluded stomach or duodenal sweep. SMALL BOWEL FOLLOW-THROUGH: Straight Pin Making Machine Operator supine abdomen in radiograph demonstrates right hip replacement which appears to have been revised for loosening. No current acute finding. Enthesophyte atrophic changes are present throughout the bilateral greater trochanters and iliac wings. Arthritic changes are present throughout the spine, most severe in the lumbar region. There are several chronic appearing compression deformities. There are surgical clips in the left lower quadrant and left upper quadrant. Mild linear scarring is noted in both lung bases. The heart is prominent and may be enlarged.1 The are no dilated small bowel segments. Contrast is seen in the colon up to the splenic flexure at the end of the examination, by 10 minutes. No masses or strictures are seen. No significant thickening of the valvulae conniventes. Normal peristalsis of the small bowel is evident. There is a small ileal diverticulum in the terminal ileal region. TI otherwise has a normal appearance. FLUOROSCOPY TIME: 4 minutes 12 seconds Number of Spot Images: 10 Number of Cine: 8 DOSE AREA PRODUCT: 3253 uGy-m2 (microgray-meter squared) FL/FL upper GI w air w SBFT IMPRESSION: 1. Mild cricopharyngeal achalasia. 2. Esophageal dysmotility, rather marked. 3. Mild to moderate narrowing of the GE junction above the hiatal hernia that may represents achalasia. A benign short segment stricture cannot be ruled out. Recommend correlation with EGD. 4. Small type I hiatal hernia. 5. Status post Mario Alberto-en-Y gastric bypass. The gastrojejunostomy is widely patent. No complication evident. No reflux into the excluded duodenum or stomach 6. No dilated small bowel segments. No masses or strictures are seen. 7. Contrast is seen in the colon up to the splenic flexure within 10 minutes. This is slightly more brisk than would be expected, although of unsure etiology in the setting of gastric bypass. Assessment & Plan Assessment & Plan (1) Constipation: Code(s): K59.00 - Constipation, unspecified Category: Medical (2) Oropharyngeal dysphagia: Code(s): R13.12 - Dysphagia, oropharyngeal phase Category: Medical (3) Chronic GERD: Code(s): K21.9 - Gastro-esophageal reflux disease without esophagitis Category: Medical Plan She finds she is having some more trouble swallowing things tend to get hung up right above the sternal notch which correlates well with the question of cricopharyngeal achalasia on the barium swallow. I think were going to get an endoscopy because there also was a question some thickening at the GE junction. She does not have any problems with subjective heartburn, but it is possible she has a stricture that needs dilation. It is also possible that this is a variant of presbyesophagus which would be more difficult to treat. We reviewed safe swallowing precautions which she generally follows because she does not have any teeth. She finds the Motegrity 2 mg has made her stooling ?almost normal. ? this is the best result we have had so far so she is happy with continuing this treatment. She also occasionally uses her senna which is acceptable. She continues on her pantoprazole 40 mg once a day. Return office visit in 6 months and of course I will see her after the endoscopy. Orders: Orders EGD with [facility]ouch - GI Use Only Today R13.12 - Dysphagia, oropharyngeal phase Medications: New pantoprazole 40 mg PO QAM 30 tabs 6RF K21.9 - Gastro-esophageal reflux disease without esophagitis Refilled prucalopride (Motegrity) 2 mg PO DAILY 30 tabs 6RF K59.00 - Constipation, unspecified sennosides-docusate sodium 8.6-50 mg (Senexon-S) 2 tabs PO BEDTIME PRN 180 tabs 0RF constipation Coding Level of Care Code Est Pt Level 3 (51056) Diagnoses Constipation K59.00 Oropharyngeal dysphagia R13.12 Chronic GERD K21.9
[2023-10-19 08:34] VITALS: BP 108/48; RESP 66; BMI 40.0
== END 2023-10-19 09:31 | disposition home or self-care (01) ==
PROVIDERS: PCP Internal Medicine; Visit Provider Nurse Practitioner
DX: K59.00 Constipation, unspecified (principal); R13.12 Dysphagia, oropharyngeal phase; K21.9 Gastro-esophageal reflux disease without esophagitis
CPT/HCPCS: 99213

== ENCOUNTER → 2023-10-19 08:27 | Outpatient (BNVA) | payer MEDICARE, MEDICAID, SELFPAY | PROVIDERS: PCP Internal Medicine; Visit Provider Nurse Practitioner | DX: K59.00 Constipation, unspecified (principal); K21.9 Gastro-esophageal reflux disease without esophagitis; R13.12 Dysphagia, oropharyngeal phase | CPT/HCPCS: 99212 ==

== ENCOUNTER 2023-10-20 05:44 | Day surgery (SDC) | payer MEDICARE, MEDICAID, SELFPAY ==
[2023-10-12 12:06] VITALS: BMI 43.3
[2023-10-12 12:09] VITALS: BP 123/58; PULSE 66; RESP 20; O2SAT 97
--- NOTE | 2023-10-12 12:18 | P.CONAN_ITS ---
Documented by User: Rosario Ramirez NP 10/12/23 12:24 HPI - Anesthesia Eval Consult details Narrative: 77yo F for Right Wide Local Excision of hip scar s/p hip debridement 01/2023 with GA-ETT 7 s/p Total Hip 2014 and revision Cardiology optimized 09/2023. Follows [facility] cardiology Pulmo eval 05/2023 for f/u. PFT and 6 min walk test WNL at previous visit. No recent illness No CP. SOB at baseline r/t weight/deconditioning GERD well controlled on ppi Non nicotine vape daily PMFSH Active Problems Active Problems: All Active Problems Preoperative cardiovascular examination (Acute) Wound, open, hip or thigh with complication (Acute) Constipation (Acute) Change in bowel movement (Acute) Right rib fracture (Acute) Menopause (Acute) Pain management (Acute) Thoracolumbar back pain (Acute) Anemia (Acute) Tubular adenoma of colon (Acute) Abnormal stress ECG with treadmill (Acute) Pain management contract agreement (Acute) Open wound of right lower leg with complication (Acute) Post-COVID chronic dyspnea (Acute) Ex-smoker (Acute) Shortness of breath (Acute) Mitral annular calcification (Acute) Aortic valve calcification (Acute) Lymphedema (Acute) Morbid obesity due to excess calories (Acute) Right bundle branch block (Acute) Premature atrial contractions (Acute) Peripheral vascular disease (Acute) Cough (Acute) Influenza A H1N1 infection (Acute) Hospital discharge follow-up (Acute) Cellulitis of right leg (Acute) Varicose veins of right lower extremity with inflammation (Acute) Edema (Acute) Medicare annual wellness visit, subsequent (Acute) Open wound of right hip and thigh (Acute) Traumatic seroma of right thigh (Acute) Postprocedural seroma of skin and subcutaneous tissue following other procedure (Acute) Enterococcus faecalis infection (Acute) Abscess (Acute) Hip pain, right (Acute) Family history of colon cancer (Acute) Colon cancer screening (Acute) Encounter for general adult medical examination with abnormal findings (Acute) Morbid obesity due to excess calories (Acute) Pre-op evaluation (Acute) Obesity (Acute) Nocturnal hypoxemia (Acute) COPD (chronic obstructive pulmonary disease) (Acute) Restrictive lung disease (Acute) Lymphedema (Acute) Stasis edema of both lower extremities (Acute) S/P gastric bypass (Acute) History of total hip arthroplasty (Acute) Hip pain, right (Acute) Nail fungus (Acute) Chronic GERD (Acute) Depression, major, recurrent (Acute) Hypertension, essential (Acute) Past Medical History Medical History Preoperative cardiovascular examination Change in bowel movement Traumatic seroma of right thigh Hip pain, right Postprocedural seroma of skin and subcutaneous tissue following other procedure Open wound of right hip and thigh Peripheral vascular disease Right rib fracture Menopause Pain management Pain management contract agreement Open wound of right lower leg with complication Shortness of breath Cough Edema Influenza A H1N1 infection Hospital discharge follow-up Cellulitis of right leg Varicose veins of right lower extremity with inflammation Enterococcus faecalis infection Abscess Hip pain, right Obesity Lymphedema Morbid obesity due to excess calories Pre-op evaluation Colon cancer screening Encounter for general adult medical examination with abnormal findings Medicare annual wellness visit, subsequent Family history of anesthesia complication Back pain Arthritis Renal calculi Post-influenza syndrome Tremor Peripheral vascular disease Right bundle branch block (RBBB) Aortic valve calcification Mitral annular calcification Nocturnal hypoxemia COPD (chronic obstructive pulmonary disease) Restrictive lung disease Stasis edema of both lower extremities Nail fungus Chronic GERD Depression, major, recurrent Hypertension, essential Family History Family History Father No problems noted. Mother Alzheimer's disease Maternal Grandmother Cancer Maternal Grandfather No problems noted. Paternal Grandfather No problems noted. Paternal Grandmother No problems noted. Maternal Aunt Cancer Sister Colon cancer Son No problems noted. Daughter No problems noted. Family history of problems with anesthesia: No (Sister long to wake) Surgical History Surgical History History of total hip arthroplasty S/P gastric bypass History of surgery on lower extremity (01/25/23) History of surgery H/O colonoscopy History of cataract extraction History of bilateral tubal ligation History of tonsillectomy History of Problems with Anesthesia: No Social History Social History Household Members: Children Household Members Other:: daughter Housing: House Housing Other:: mobile home Are you a primary health care marketing manager to a significant other at home: No Do you presently have visiting nurse or other home services: No Alcohol intake: never Patient Tobacco Use Status: Former Tobacco user Tobacco use type: Cigarette Years Smoked: 40 e-Cigarette/Vaping Use: Currently Using Second Hand Smoke Exposure: No Have you been hit, kicked, punched, or otherwise hurt by someone within the past year? If so, by whom?: No Are you DNR?: No Advance Directives: No Advance Directives Information Provided: Yes Advance Directives on File: Yes Advance Directives Date on File: 03/13/15 Recently lost weight without trying: No Eating poorly because of decreased appetite: No Nutrition Risks: No Nutritional Risk Poor oral hygiene: No (edentulous) service: No Current occupational status: retired and other Current occupation: right handed Cognitive needs: No Hearing needs: No Vision needs: No Meds Allergies Allergy/AdvReac Type Severity Reaction Status Date / Time sucralfate [Carafate] Allergy Intermediate hives Verified 10/19/23 08:39 NSAIDS (Non-Steroidal AdvReac Intermediate cannot Verified 10/19/23 08:39 Anti-Inflamma take due to gastric bypass history Home Medications ?Medication ?Instructions ?Recorded ?Confirmed ?Last Taken ?Type ascorbic acid (vitamin C) 1,000 mg 1,000 mg PO QAM 04/02/20 10/12/23 01/24/23 History tablet bupropion HCl 300 mg 24 hr tablet, 300 mg PO QAM 04/02/20 10/12/23 01/24/23 History extended release (Wellbutrin XL) cholecalciferol (vitamin D3) 50 50 mcg PO QPM 04/02/20 10/12/23 01/24/23 History mcg (2,000 unit) capsule ferrous sulfate 325 mg (65 mg 325 mg PO QPM 04/02/20 10/12/23 Unknown History iron) tablet (Feosol) multivitamin (Daily Multi-Vitamin 1 tab PO QPM 04/02/20 10/12/23 01/24/23 History tablet) escitalopram oxalate 20 mg tablet 20 mg PO QAM 07/30/20 10/12/23 01/24/23 History (Lexapro) bupropion HCl 150 mg 24 hr tablet, 150 mg PO QAM 08/06/21 10/12/23 01/24/23 History extended release propranolol 60 mg capsule,24 60 mg PO BEDTIME 05/10/12/23 01/24/23 History hr,extended release lorazepam 0.5 mg tablet 0.5 mg PO DAILY PRN Anxiety 06/24/22 10/12/23 01/24/23 History aripiprazole 10 mg tablet 10 mg PO QAM 12/17/22 10/12/23 01/24/23 History calcium cit 250 mg-mag 40 mg-D3 1 tab PO QAM 01/18/23 10/12/23 01/24/23 History 125 unit-zinc 3.75 mg-manager copy-fortino tablet (Calcium Citrate Plus) ropinirole 0.25 mg tablet 0.25 mg PO BEDTIME 05/24/23 10/12/23 Unknown History primidone 50 mg tablet 50 mg PO BEDTIME 10/12/23 10/12/23 Unknown History Exam Height,Weight and Vital Signs: Height 4 ft 10 in Weight 93.894 kg Last Vital Signs Pulse 66 10/12/23 12:09 Resp 20 10/12/23 12:09 BP 123/58 L 10/12/23 12:09 Pulse Ox 97 10/12/23 12:09 O2 Del Method Room Air 10/12/23 12:09 Pertinent Lab Results Pertinent Lab Results: Laboratory Tests 08/02/23 11:40 WBC 5.9 Hgb 13.0 Hct 41.5 Plt Count 257 D Sodium 142 Potassium 4.3 Chloride 102 Carbon Dioxide 32 H BUN 17 H Creatinine 0.79 Narrative Narrative: EKG 09/2023 sinus bradycardia at 55/Min; right bundle-branch block pattern Echocardiogram 2022 LVEF of 65-70%; grade 2 diastolic dysfunction; moderate aortic valve calcification but no significant dysfunction; moderate mitral annular calcification. Myocardial perfusion imaging study 2022 likely normal perfusion. Gated LVEF > 70% during stress and rest. Home sleep study is negative for SOULEYMANE. PFT 09/2022 Forced vital capacity 64%, FEV1 73%, FEV1/FVC ratio is 84. FEE64-99 93%. MVV 75%. Post bronchodilator therapy, there is no change. Total lung capacity 84% and residual volume 90%. Diffusion capacity 87% CONCLUSION: Based on the decreased FVC and FEV1 volumes, there is indication of [id number] restrictive pattern. However, the total lung capacity and residual volume are normal and diffusion capacity is normal. So decreased flow volumes may be just due to decreased effort. Except for possible mild to moderate restrictive disorder, there is no other significant abnormality. Airway Mallampati Class: I TM Dist: >3cm Neck ROM: Full Loose/Missing/Broken Teeth: Yes (endentulous) Heart: RRR Lungs: CTAB Assessment and Plan Assessment Anesthesia Assessment: Anesthesia Plan Discussed and PAT Visit Final Anesthetic Review Family History of Problems with Anesthesia: No (Sister long to wake) History of Problems with Anesthesia: No Documented by User: José Maldonado MD 10/20/23 07:35 [facility] Past Medical History Medical History Preoperative cardiovascular examination Change in bowel movement Traumatic seroma of right thigh Hip pain, right Postprocedural seroma of skin and subcutaneous tissue following other procedure Open wound of right hip and thigh Peripheral vascular disease Right rib fracture Menopause Pain management Pain management contract agreement Open wound of right lower leg with complication Shortness of breath Cough Edema Influenza A H1N1 infection Hospital discharge follow-up Cellulitis of right leg Varicose veins of right lower extremity with inflammation Enterococcus faecalis infection Abscess Hip pain, right Obesity Lymphedema Morbid obesity due to excess calories Pre-op evaluation Colon cancer screening Encounter for general adult medical examination with abnormal findings Medicare annual wellness visit, subsequent Family history of anesthesia complication Back pain Arthritis Renal calculi Post-influenza syndrome Tremor Peripheral vascular disease Right bundle branch block (RBBB) Aortic valve calcification Mitral annular calcification Nocturnal hypoxemia COPD (chronic obstructive pulmonary disease) Restrictive lung disease Stasis edema of both lower extremities Nail fungus Chronic GERD Depression, major, recurrent Hypertension, essential Family History Family History Father No problems noted. Mother Alzheimer's disease Maternal Grandmother Cancer Maternal Grandfather No problems noted. Paternal Grandfather No problems noted. Paternal Grandmother No problems noted. Maternal Aunt Cancer Sister Colon cancer Son No problems noted. Daughter No problems noted. Surgical History Surgical History History of total hip arthroplasty S/P gastric bypass History of surgery on lower extremity (01/25/23) History of surgery H/O colonoscopy History of cataract extraction History of bilateral tubal ligation History of tonsillectomy Social History Social History Household Members: Children Household Members Other:: daughter Housing: House Housing Other:: mobile home Are you a primary health care marketing manager to a significant other at home: No Do you presently have visiting nurse or other home services: No Alcohol intake: never Patient Tobacco Use Status: Former Tobacco user Tobacco use type: Cigarette Years Smoked: 40 e-Cigarette/Vaping Use: Currently Using Second Hand Smoke Exposure: No Have you been hit, kicked, punched, or otherwise hurt by someone within the past year? If so, by whom?: No Are you DNR?: No Advance Directives: No Advance Directives Information Provided: Yes Advance Directives on File: Yes Advance Directives Date on File: 03/13/15 Recently lost weight without trying: No Eating poorly because of decreased appetite: No Nutrition Risks: No Nutritional Risk Poor oral hygiene: No (edentulous) service: No Current occupational status: retired and other Current occupation: right handed Cognitive needs: No Hearing needs: No Vision needs: No Meds Allergies Allergy/AdvReac Type Severity Reaction Status Date / Time sucralfate [Carafate] Allergy Intermediate hives Verified 10/19/23 08:39 NSAIDS (Non-Steroidal AdvReac Intermediate cannot Verified 10/19/23 08:39 Anti-Inflamma take due to gastric bypass history Home Medications ?Medication ?Instructions ?Recorded ?Confirmed ?Last Taken ?Type ascorbic acid (vitamin C) 1,000 mg 1,000 mg PO QAM 04/02/20 10/12/23 01/24/23 History tablet bupropion HCl 300 mg 24 hr tablet, 300 mg PO QAM 04/02/20 10/12/23 01/24/23 History extended release (Wellbutrin XL) cholecalciferol (vitamin D3) 50 50 mcg PO QPM 04/02/20 10/12/23 01/24/23 History mcg (2,000 unit) capsule ferrous sulfate 325 mg (65 mg 325 mg PO QPM 04/02/20 10/12/23 Unknown History iron) tablet (Feosol) multivitamin (Daily Multi-Vitamin 1 tab PO QPM 04/02/20 10/12/23 01/24/23 History tablet) escitalopram oxalate 20 mg tablet 20 mg PO QAM 07/30/20 10/12/23 01/24/23 History (Lexapro) bupropion HCl 150 mg 24 hr tablet, 150 mg PO QAM 08/06/21 10/12/23 01/24/23 History extended release propranolol 60 mg capsule,24 60 mg PO BEDTIME 09/19/21 10/12/23 01/24/23 History hr,extended release lorazepam 0.5 mg tablet 0.5 mg PO DAILY PRN Anxiety 06/24/22 10/12/23 01/24/23 History aripiprazole 10 mg tablet 10 mg PO QAM 12/17/22 10/12/23 01/24/23 History calcium cit 250 mg-mag 40 mg-D3 1 tab PO QAM 01/18/23 10/12/23 01/24/23 History 125 unit-zinc 3.75 mg-manager copy-fortino tablet (Calcium Citrate Plus) ropinirole 0.25 mg tablet 0.25 mg PO BEDTIME 05/24/23 10/12/23 Unknown History primidone 50 mg tablet 50 mg PO BEDTIME 10/12/23 10/12/23 Unknown History Exam Airway Denture: Upper and Lower Assessment and Plan Final Anesthetic Review NPO: Yes ASA Class: III Final Preanesthetic Review: No Changes in Pt Med Stat, Meds/Allgs Chart Reviewed, Consent Obtained/Reviewed and Anes Risks/Benef Reviewed Patient Risk: Intermediate Procedure Risk: Low Anesthetic Plan Anesthetic Plan: GA Disposition: Standard PACU
--- OUTSIDE RECORDS SUMMARY | 2023-10-20 05:46 | XMS_ITS | Continuity of Care Document ---
Author Organization [facility] Address [address] [place] [id number]- Care Team Providers Care Bank Representative Name Role Phone Luis SHELDON, Kayla Primary Care Physician Encounter [facility] Date(s): 04/07/23 - 05/07/[address] [address]- Attending Physician: Axel Ar8 Admitting Physician: Admtr, Ar8 Referring Physician: Admtr, Ar8 Patient Care team information Care Team Personnel Name: Kayla Smith MD Position: [facility] Physician - Primary Care Member Role: PCP Address: Address: [address] [place] [address]- Care Team Related Persons Name: VAN DIETZ Address: home [address] [place] [id number]
--- OUTSIDE RECORDS SUMMARY | 2023-10-20 05:46 | XMS_ITS | Continuity of Care Document ---
Author Organization [facility] Address [address] [place] [id number]- Care Team Providers Care Beauty Culturist Apprentice Name Role Phone Luis SHELDON, Kayla Primary Care Physician [phone] [id number] Date(s): 03/29/23 - 05/07/[address] [address]- Attending Physician: Kayla Smith MD Admitting Physician: Kayla Smith MD Referring Physician: Kayla Smith MD Patient Care team information Care Team Personnel Name: Kayla Smith MD Position: [facility] Physician - Primary Care Member Role: PCP Address: Address: [address] [place] [address]- Care Team Related Persons Name: VAN DIETZ Address: home [address] [place] [id number]
[2023-10-20 06:07] VITALS: BP 162/70; PULSE 67; RESP 17; TEMP 36.9; O2SAT 96
[2023-10-20 06:20] VITALS: BMI 43.6
[2023-10-20] MEDS: Lactated Ringers 1,000 ML 100 ML IVCONT (06:30)
--- NOTE | 2023-10-20 07:20 | MHC.SHP ---
Pre-Procedural Eval Section A - 24 Hr Update-Section A only Date of Service: 10/20/23 The patient is an INPATIENT: No Changes since office visit: Yes Patient answered all questions; No Cold of Flu in the past 2 weeks, No New Medical Problems and No Changes in Medication The patient has been examined within 24 hours of the surgical procedure. The History & Physical has been completed within 30 days and I have reviewed it.: Yes Section B - Complete if H&P > 30 days Chief Complaint: open wound right hip and thigh Allergies: Allergies Allergy/AdvReac Type Severity Reaction Status Date / Time sucralfate [Carafate] Allergy Intermediate hives Verified 10/19/23 08:39 NSAIDS (Non-Steroidal AdvReac Intermediate cannot Verified 10/19/23 08:39 Anti-Inflamma take due to gastric bypass history Plan Diagnosis/Plan: Unchanged I have reviewed the history and physical and performed a pertinent physical examination on my patient. No changes have occurred unless specified. Time Spent With Patient Time: Total time managing care of this patient today ____ minutes.
--- NOTE | 2023-10-20 08:59 | P.OP_ITS ---
Operative Note Operative Note Date of Service: 10/20/23 Narrative: Preoperative diagnosis: Non-healing wound right hip Postoperative diagnosis: Same Procedure: Wide excision nonhealing wound right hip Surgeon: Vini Mosquera MD Arcade Game Technician: Lorin Love PA-C Anesthesia: General LMA Indications for procedure: 77-year-old female patient with prior right hip replacement now with a nonhealing wound previously excised and with wound VAC. Patient has a small sinus which remains. She presents today for wide excision. Operative findings: Wide and deep area of granulation extending into the hip measuring approximately 10 cm deep by 3 cm wide. This was widely excised. Granulation tissue to the margins was removed with curette. A large 10 Sebastian- Colon drain was placed at the base of the wound. This was brought out through a separate stab incision. Specimen: Wound culture, scar right hip Estimated blood loss: 20 mL Complications: None Drains: SHANTELL large to bulb suction Procedure details: Patient was brought to the OR placed in a supine position. After administering general anesthesia she was placed on a left lateral decubitus position. The patient's right hip was prepped with Betadine and draped in a sterile fashion. A surgical time-out was called the consent confirmed. Patient received preoperative antibiotics and Venodyne boots were in place. Local anesthesia was infiltrated circumferentially around the scar oriented obliquely to include the draining sinus. Incision measured 10 by 5 cm. This was carried out through subcutaneous tissue using electrocautery. Hemostasis was assured at all times using electrocautery and free ties of 3-0 Polysorb. Incision was carried down into the deep subcutaneous tissue has muscle fascia and muscle and just adjacent to the prior hip replacement. At no point was the hardware identified in the wound. A small fluid collection was noted adjacent to this sinus with clear/yellow fluid suggestive of an area of fat necrosis. A culture of this fluid was obtained. The entire specimen was removed and sent to pathology for further examination. Wounds were then irrigated with saline mixed with Betadine solution and suctioned dry. A large Sebastian-Colon drain was placed through a separate ant erior stab wound and secured using a nylon suture. This was placed at the base of the excision site. Muscular tissue was then reapproximated using interrupted 3-0 Polysorb sutures. Dermis was reapproximated using interrupted 3-0 Polysorb sutures. Skin was closed using interrupted 3-0 nylon sutures. Sterile dressings were then applied. The patient tolerated the procedure well. Sponge, instrument, needle counts reported as correct. The patient was transferred to PACU in stable condition.
[2023-10-20 09:05] VITALS: BP 155/64; PULSE 76; RESP 18; TEMP 36.4; O2SAT 98
[2023-10-20 09:10] VITALS: BP 147/65; PULSE 72; RESP 18; O2SAT 99
[2023-10-20 09:15] VITALS: BP 147/65; PULSE 83; RESP 18; O2SAT 96
[2023-10-20 09:20] VITALS: BP 131/52; PULSE 77; RESP 16; O2SAT 96
[2023-10-20 09:35] VITALS: BP 121/48; PULSE 86; RESP 16; TEMP 36.1; O2SAT 95
--- NOTE | 2023-10-20 09:56 | HO.INF ---
PATIENT WITH DRAIN..... NOT SEEN IN DC AREA.
== END 2023-10-20 09:59 | disposition home or self-care (01) ==
PROVIDERS: PCP Internal Medicine; Visit Provider Surgery
PROC: (CPT 11043; principal; 2023-10-20 07:30)
DX: S71.001A Unspecified open wound, right hip, initial encounter (principal); L90.5 Scar conditions and fibrosis of skin; I10 Essential (primary) hypertension; I73.9 Peripheral vascular disease, unspecified; J44.9 Chronic obstructive pulmonary disease, unspecified; Z79.899 Other long term (current) drug therapy; Z96.641 Presence of right artificial hip joint; Z88.8 Allergy status to other drugs, medicaments and biological substances; X58.XXXA Exposure to other specified factors, initial encounter; Y93.9 Activity, unspecified; Y92.9 Unspecified place or not applicable; Y99.9 Unspecified external cause status
CPT/HCPCS: 11043; 11046; 87070; 87147; 87205; 88304; 88305; 88311; J0690; J2371; J2704; J3010

== ENCOUNTER → 2023-10-20 05:44 | Outpatient (BNV) | payer MEDICARE, MEDICAID, SELFPAY | PROVIDERS: PCP Internal Medicine; Visit Provider Surgery | DX: S71.101A Unspecified open wound, right thigh, initial encounter (principal); S71.001A Unspecified open wound, right hip, initial encounter | CPT/HCPCS: 11044; 11047 ==

== ENCOUNTER 2023-10-29 09:13 | Outpatient (AMB) | payer MEDICARE, MEDICAID, SELFPAY ==
--- NOTE | 2023-10-29 09:19 | A.OFFVIS_ITS ---
Vital Signs 3 10/29/23 09:30 Height 4 ft 10 in Weight 207 lb 3.752 oz BMI 43.3 BP 132/65 Blood Pressure Location Lt brachial Position Sitting Pulse 73 Intake Visit Reasons: S/P wide excision Rt hip scar Intake Note: Patient is seen in office for post op assessment post wide excision nonhealing wound right hip. Pt c/o: admits to healing as expected, carmen are at 2onz daily Op: 10/20/23 Dialer Required: No Accompanied by: Self / Same As Patient Allergies sucralfate [Carafate] Allergy (Intermediate, Verified 10/29/23 09:30) hives NSAIDS (Non-Steroidal Anti-Inflamma Adverse Reaction (Intermediate, Verified 10/29/23 09:30) cannot take due to gastric bypass history Medication List - Last Reconciled 10/29/23 by Vini Mosquera MD [2 inch cloth tape As directed] [4x4 sterile gauze pads As directed] alendronate (Fosamax) 70 mg PO QWEEK 90 days aripiprazole 10 mg PO QAM ascorbic acid (vitamin C) 1,000 mg PO QAM bupropion HCl XL (Wellbutrin XL) 300 mg PO QAM bupropion HCl XL 150 mg PO QAM calcium srb-qlq-D9-Zn-electron microscopist-fortino [id number] yh-bn-xmcs-mg (Calcium Citrate Plus) 1 tab PO QAM cholecalciferol (vitamin D3) 50 mcg PO QPM escitalopram oxalate (Lexapro) 20 mg PO QAM ferrous sulfate (Feosol) 325 mg PO QPM hydrochlorothiazide 25 mg PO QAM lorazepam 0.5 mg PO DAILY PRN multivitamin (Daily Multi-Vitamin tablet) 1 tab PO QPM oxycodone 5 mg PO Q6H PRN pantoprazole 40 mg PO QAM primidone 50 mg PO BEDTIME propranolol ER 60 mg PO BEDTIME prucalopride (Motegrity) 2 mg PO DAILY ropinirole 0.25 mg PO BEDTIME sennosides-docusate sodium 8.6-50 mg (Senexon-S) 2 tabs PO BEDTIME PRN HPI Comments Details: 77-year-old female patient returning following a wide excision of a draining tract in the right hip on 10/20/2023. Sebastian-Colon drain remains intact and has been draining between 2-3 oz daily. The output is been serous mainly. No bleeding is identified. She returns today for wound check. [facility] Medical History Preoperative cardiovascular examination Change in bowel movement Traumatic seroma of right thigh Hip pain, right Postprocedural seroma of skin and subcutaneous tissue following other procedure Open wound of right hip and thigh Peripheral vascular disease Right rib fracture Menopause Pain management Pain management contract agreement Open wound of right lower leg with complication Shortness of breath Cough Edema Influenza A H1N1 infection Hospital discharge follow-up Cellulitis of right leg Varicose veins of right lower extremity with inflammation Enterococcus faecalis infection Abscess Hip pain, right Obesity Lymphedema Morbid obesity due to excess calories Pre-op evaluation Colon cancer screening Encounter for general adult medical examination with abnormal findings Medicare annual wellness visit, subsequent Family history of anesthesia complication Back pain Arthritis Renal calculi Post-influenza syndrome Tremor Peripheral vascular disease Right bundle branch block (RBBB) Aortic valve calcification Mitral annular calcification Nocturnal hypoxemia COPD (chronic obstructive pulmonary disease) Restrictive lung disease Stasis edema of both lower extremities Nail fungus Chronic GERD Depression, major, recurrent Hypertension, essential Surgical History History of excision of lesion (10/20/23) History of total hip arthroplasty S/P gastric bypass History of surgery on lower extremity (01/25/23) History of surgery H/O colonoscopy History of cataract extraction History of bilateral tubal ligation History of tonsillectomy Family History Father No problems noted. Mother Alzheimer's disease Maternal Grandmother Cancer Maternal Grandfather No problems noted. Paternal Grandfather No problems noted. Paternal Grandmother No problems noted. Maternal Aunt Cancer Sister Colon cancer Son No problems noted. Daughter No problems noted. Social History Household Members: Children Household Members Other:: daughter Housing: House Housing Other:: mobile home Are you a primary skin care instructor to a significant other at home: No Do you presently have visiting nurse or other home services: No Alcohol intake: never Patient Tobacco Use Status: Former Tobacco user Tobacco use type: Cigarette Years Smoked: 40 e-Cigarette/Vaping Use: Currently Using Second Hand Smoke Exposure: No Advance Directives Date on File: 03/13/15 service: No Current occupational status: retired and other Current occupation: right handed Cognitive needs: No Hearing needs: No Vision needs: No Physical Exam Vital Signs: Last Vital Signs Pulse 73 10/29/23 09:30 BP 132/65 10/29/23 09:30 BMI result Body Mass Index 43.3 Const General: no acute distress Extrem Other: Right hip incision is clean, dry, and intact without redness or discharge. SHANTELL drain is intact. A proximally 1/2 of the sutures were removed. We will keep SHANTELL in for another week. Upper/lower leg/hip images: 2 1. Incision right hip Assessment & Plan Assessment & Plan (1) Wound, open, hip or thigh with complication: Code(s): S71.009A - Unspecified open wound, unspecified hip, initial encounter; S71.109A - Unspecified open wound, unspecified thigh, initial encounter Category: Medical Qualifiers: Encounter type: initial encounter Laterality: right Qualified Code(s): S71.001A - Unspecified open wound, right hip, initial encounter; S71.101A - Unspecified open wound, right thigh, initial encounter Plan Overall the patient is much improved and the incision is healing nicely. We will continue with the SHANTELL drainage and have the patient return approximately 1 week to remove the remaining sutures and SHANTELL drain. Coding Level of Care Code Global (00001) Diagnoses Open wound of right hip and thigh with complication, initial encounter S71.001A; S71.101A Encounter type: initial encounter Laterality: right
[2023-10-29 09:30] VITALS: BP 132/65; PULSE 73; BMI 43.3
== END 2023-10-29 09:39 | disposition home or self-care (01) ==
PROVIDERS: PCP Internal Medicine; Visit Provider Surgery
DX: S71.001A Unspecified open wound, right hip, initial encounter (principal); S71.101A Unspecified open wound, right thigh, initial encounter
CPT/HCPCS: 99024

== ENCOUNTER → 2023-10-29 09:13 | Outpatient (BNVA) | payer MEDICARE, MEDICAID, SELFPAY | PROVIDERS: PCP Internal Medicine; Visit Provider Surgery | DX: S71.101A Unspecified open wound, right thigh, initial encounter (principal); S71.001A Unspecified open wound, right hip, initial encounter; X58.XXXA Exposure to other specified factors, initial encounter; Y93.9 Activity, unspecified; Y92.9 Unspecified place or not applicable; Y99.9 Unspecified external cause status | CPT/HCPCS: 99212 ==

== ENCOUNTER 2023-11-04 13:37 | Outpatient (AMB) | payer MEDICARE, MEDICAID, SELFPAY ==
--- NOTE | 2023-11-04 13:42 | A.OFFVIS_ITS ---
Vital Signs 11/04/23 13:47 Height 4 ft 10 in Weight 207 lb 3.752 oz BMI 43.3 BP 122/80 Blood Pressure Location Lt brachial Position Sitting Intake Visit Reasons: 1 wk S/P wide excision Rt hip scar Intake Note: Patient is seen in office for one week follow up visit, post wide excision of right hip scar. Pt c/o: here to have drains removed output is 1 onz Allergies sucralfate [Carafate] Allergy (Intermediate, Verified 10/29/23 09:30) hives NSAIDS (Non-Steroidal Anti-Inflamma Adverse Reaction (Intermediate, Verified 10/29/23 09:30) cannot take due to gastric bypass history Medication List - Last Reconciled 11/04/23 by Vini Mosquera MD [2 inch cloth tape As directed] [4x4 sterile gauze pads As directed] alendronate (Fosamax) 70 mg PO QWEEK 90 days aripiprazole 10 mg PO QAM ascorbic acid (vitamin C) 1,000 mg PO QAM bupropion HCl XL (Wellbutrin XL) 300 mg PO QAM bupropion HCl XL 150 mg PO QAM calcium nxx-lgr-F1-Zn-atomic spectroscopist-fortino [phone] vw-rt-kkei-mg (Calcium Citrate Plus) 1 tab PO QAM cholecalciferol (vitamin D3) 50 mcg PO QPM escitalopram oxalate (Lexapro) 20 mg PO QAM ferrous sulfate (Feosol) 325 mg PO QPM hydrochlorothiazide 25 mg PO QAM lorazepam 0.5 mg PO DAILY PRN multivitamin (Daily Multi-Vitamin tablet) 1 tab PO QPM oxycodone 5 mg PO Q6H PRN pantoprazole 40 mg PO QAM primidone 50 mg PO BEDTIME propranolol ER 60 mg PO BEDTIME prucalopride (Motegrity) 2 mg PO DAILY ropinirole 0.25 mg PO BEDTIME sennosides-docusate sodium 8.6-50 mg (Senexon-S) 2 tabs PO BEDTIME PRN HPI Comments Details: 77-year-old female patient returning following a wide excision of a draining tract in the right hip on 10/20/2023. Sebastian-Colon drain remains intact and has been draining 1 oz daily. She continues to report clear discharge she denies any pain in the incision and generally feels well.. No bleeding is identified. She returns today for wound check. [facility] Medical History Preoperative cardiovascular examination Change in bowel movement Traumatic seroma of right thigh Hip pain, right Postprocedural seroma of skin and subcutaneous tissue following other procedure Open wound of right hip and thigh Peripheral vascular disease Right rib fracture Menopause Pain management Pain management contract agreement Open wound of right lower leg with complication Shortness of breath Cough Edema Influenza A H1N1 infection Hospital discharge follow-up Cellulitis of right leg Varicose veins of right lower extremity with inflammation Enterococcus faecalis infection Abscess Hip pain, right Obesity Lymphedema Morbid obesity due to excess calories Pre-op evaluation Colon cancer screening Encounter for general adult medical examination with abnormal findings Medicare annual wellness visit, subsequent Family history of anesthesia complication Back pain Arthritis Renal calculi Post-influenza syndrome Tremor Peripheral vascular disease Right bundle branch block (RBBB) Aortic valve calcification Mitral annular calcification Nocturnal hypoxemia COPD (chronic obstructive pulmonary disease) Restrictive lung disease Stasis edema of both lower extremities Nail fungus Chronic GERD Depression, major, recurrent Hypertension, essential Surgical History History of excision of lesion (10/20/23) History of total hip arthroplasty S/P gastric bypass History of surgery on lower extremity (01/25/23) History of surgery H/O colonoscopy History of cataract extraction History of bilateral tubal ligation History of tonsillectomy Family History Father No problems noted. Mother Alzheimer's disease Maternal Grandmother Cancer Maternal Grandfather No problems noted. Paternal Grandfather No problems noted. Paternal Grandmother No problems noted. Maternal Aunt Cancer Sister Colon cancer Son No problems noted. Daughter No problems noted. Social History Household Members: Children Household Members Other:: daughter Housing: House Housing Other:: mobile home Are you a primary small animal caretaker to a significant other at home: No Do you presently have visiting nurse or other home services: No Alcohol intake: never Patient Tobacco Use Status: Former Tobacco user Tobacco use type: Cigarette Years Smoked: 40 e-Cigarette/Vaping Use: Currently Using Second Hand Smoke Exposure: No Advance Directives Date on File: 03/13/15 service: No Current occupational status: retired and other Current occupation: right handed Cognitive needs: No Hearing needs: No Vision needs: No Physical Exam Vital Signs: Last Vital Signs BP 122/80 11/04/23 13:47 BMI result Body Mass Index 43.3 Const General: no acute distress Extrem Other: Right hip incision is clean, dry, and intact without redness or discharge. SHANTELL drain is intact. The remaining sutures were removed and the wounds found to be well healed. Clean dressing was applied. Assessment & Plan Assessment & Plan (1) Wound, open, hip or thigh with complication: Code(s): S71.009A - Unspecified open wound, unspecified hip, initial encounter; S71.109A - Unspecified open wound, unspecified thigh, initial encounter Category: Medical Qualifiers: Encounter type: initial encounter Laterality: right Qualified Code(s): S71.001A - Unspecified open wound, right hip, initial encounter; S71.101A - Unspecified open wound, right thigh, initial encounter Plan Patient continues to do well and her wounds are well healed. The remaining sutures were removed today. I recommended keeping the SHANTELL in for 1 more week. She will return in 1 week for wound check. Coding Level of Care Code Global (11794) Diagnoses Open wound of right hip and thigh with complication, initial encounter S71.001A; S71.101A Encounter type: initial encounter Laterality: right
[2023-11-04 13:47] VITALS: BP 122/80; BMI 43.3
== END 2023-11-04 14:01 | disposition home or self-care (01) ==
PROVIDERS: PCP Internal Medicine; Visit Provider Surgery
DX: S71.001A Unspecified open wound, right hip, initial encounter (principal); S71.101A Unspecified open wound, right thigh, initial encounter
CPT/HCPCS: 99024

== ENCOUNTER → 2023-11-04 13:37 | Outpatient (BNVA) | payer MEDICARE, MEDICAID, SELFPAY | PROVIDERS: PCP Internal Medicine; Visit Provider Surgery | DX: S71.001D Unspecified open wound, right hip, subsequent encounter (principal); S71.101D Unspecified open wound, right thigh, subsequent encounter | CPT/HCPCS: 99212 ==

== ENCOUNTER 2023-11-16 10:44 | Outpatient (AMB) | payer MEDICARE, MEDICAID, SELFPAY ==
--- NOTE | 2023-11-16 11:01 | MHC.OFFVIS ---
Vital Signs 11/16/23 11:05 Height 4 ft 10 in Weight 207 lb 3.752 oz BMI 43.3 BP 145/68 H Blood Pressure Location Rt brachial Position Sitting Pulse 69 Intake Visit Reasons: 1 wk S/P wide excision Rt hip scar Intake Note: This patient presents for a one week follow-up status post excision right hip scar. Patient c/o; reports output from drain has been over 1 oz. Licensing Specialist Required: No Accompanied by: Self / Same As Patient Allergies sucralfate [Carafate] Allergy (Intermediate, Verified 11/16/23 11:07) hives NSAIDS (Non-Steroidal Anti-Inflamma Adverse Reaction (Intermediate, Verified 11/16/23 11:07) cannot take due to gastric bypass history Medication List - Last Reconciled 11/16/23 by Vini Mosquera MD [2 inch cloth tape As directed] [4x4 sterile gauze pads As directed] alendronate (Fosamax) 70 mg PO QWEEK 90 days aripiprazole 10 mg PO QAM ascorbic acid (vitamin C) 1,000 mg PO QAM bupropion HCl XL (Wellbutrin XL) 300 mg PO QAM bupropion HCl XL 150 mg PO QAM calcium egq-djr-X6-Zn-molecular spectroscopist-fortino [phone] nb-su-oieu-mg (Calcium Citrate Plus) 1 tab PO QAM cholecalciferol (vitamin D3) 50 mcg PO QPM escitalopram oxalate (Lexapro) 20 mg PO QAM ferrous sulfate (Feosol) 325 mg PO QPM hydrochlorothiazide 25 mg PO QAM lorazepam 0.5 mg PO DAILY PRN multivitamin (Daily Multi-Vitamin tablet) 1 tab PO QPM oxycodone 5 mg PO Q6H PRN pantoprazole 40 mg PO QAM primidone 50 mg PO BEDTIME propranolol ER 60 mg PO BEDTIME prucalopride (Motegrity) 2 mg PO DAILY ropinirole 0.25 mg PO BEDTIME sennosides-docusate sodium 8.6-50 mg (Senexon-S) 2 tabs PO BEDTIME PRN HPI Comments Details: Patient returns for follow-up examination after debridement of her right hip wound. She returns today for wound check and possible SHANTELL drain removal. SHANTELL is producing a proximally 1 cc of fluid daily. The fluid is clear yellow in color. She otherwise feels well. [facility] Medical History Preoperative cardiovascular examination Change in bowel movement Traumatic seroma of right thigh Hip pain, right Postprocedural seroma of skin and subcutaneous tissue following other procedure Open wound of right hip and thigh Peripheral vascular disease Right rib fracture Menopause Pain management Pain management contract agreement Open wound of right lower leg with complication Shortness of breath Cough Edema Influenza A H1N1 infection Hospital discharge follow-up Cellulitis of right leg Varicose veins of right lower extremity with inflammation Enterococcus faecalis infection Abscess Hip pain, right Obesity Lymphedema Morbid obesity due to excess calories Pre-op evaluation Colon cancer screening Encounter for general adult medical examination with abnormal findings Medicare annual wellness visit, subsequent Family history of anesthesia complication Back pain Arthritis Renal calculi Post-influenza syndrome Tremor Peripheral vascular disease Right bundle branch block (RBBB) Aortic valve calcification Mitral annular calcification Nocturnal hypoxemia COPD (chronic obstructive pulmonary disease) Restrictive lung disease Stasis edema of both lower extremities Nail fungus Chronic GERD Depression, major, recurrent Hypertension, essential Surgical History History of excision of lesion (10/20/23) History of total hip arthroplasty S/P gastric bypass History of surgery on lower extremity (01/25/23) History of surgery H/O colonoscopy History of cataract extraction History of bilateral tubal ligation History of tonsillectomy Family History Father No problems noted. Mother Alzheimer's disease Maternal Grandmother Cancer Maternal Grandfather No problems noted. Paternal Grandfather No problems noted. Paternal Grandmother No problems noted. Maternal Aunt Cancer Sister Colon cancer Son No problems noted. Daughter No problems noted. Social History Household Members: Children Household Members Other:: daughter Housing: House Housing Other:: mobile home Are you a primary student career development specialist to a significant other at home: No Do you presently have visiting nurse or other home services: No Alcohol intake: never Patient Tobacco Use Status: Former Tobacco user Tobacco use type: Cigarette Years Smoked: 40 e-Cigarette/Vaping Use: Currently Using Second Hand Smoke Exposure: No Advance Directives Date on File: 03/13/15 service: No Current occupational status: retired and other Current occupation: right handed Cognitive needs: No Hearing needs: No Vision needs: No Physical Exam Vital Signs: Last Vital Signs Pulse 69 11/16/23 11:05 BP 145/68 H 11/16/23 11:05 BMI result Body Mass Index 43.3 Const General: comfortable Skin Other: Right hip wound is clean, dry, and intact without redness or discharge. SHANTELL was removed and dry sterile dressings applied. Assessment & Plan Assessment & Plan (1) Wound, open, hip or thigh with complication: Code(s): S71.009A - Unspecified open wound, unspecified hip, initial encounter; S71.109A - Unspecified open wound, unspecified thigh, initial encounter Category: Medical Qualifiers: Encounter type: initial encounter Laterality: right Qualified Code(s): S71.001A - Unspecified open wound, right hip, initial encounter; S71.101A - Unspecified open wound, right thigh, initial encounter Plan Overall patient is much improved and her wounds are now completely healed. SHANTELL was removed without difficulty. She should continue to apply dry sterile dressing until the dressing is dry. She will return in proximally 2 weeks for wound check. Coding Level of Care Code Est Pt Level 3 (43678) Diagnoses Open wound of right hip and thigh with complication, initial encounter S71.001A; S71.101A Encounter type: initial encounter Laterality: right
[2023-11-16 11:05] VITALS: BP 145/68; PULSE 69; BMI 43.3
== END 2023-11-16 11:14 | disposition home or self-care (01) ==
PROVIDERS: PCP Internal Medicine; Visit Provider Surgery
DX: S71.001A Unspecified open wound, right hip, initial encounter (principal); S71.101A Unspecified open wound, right thigh, initial encounter
CPT/HCPCS: 99213

== ENCOUNTER → 2023-11-16 10:44 | Outpatient (BNVA) | payer MEDICARE, MEDICAID, SELFPAY | PROVIDERS: PCP Internal Medicine; Visit Provider Surgery | DX: S71.101D Unspecified open wound, right thigh, subsequent encounter (principal); S71.001D Unspecified open wound, right hip, subsequent encounter | CPT/HCPCS: 99212 ==

== ENCOUNTER 2023-11-22 09:44 | Outpatient (AMB) | payer MEDICARE, MEDICAID, SELFPAY ==
--- NOTE | 2023-11-22 09:55 | A.OFFVIS_ITS ---
Vital Signs 11/22/23 09:56 Height 4 ft 10 in Weight 197 lb 5.019 oz BMI 41.2 BP 122/68 Blood Pressure Location Lt brachial Position Sitting Pulse 66 Pulse Source Pulse Oximeter Pulse Oximetry (%) 97 Oxygen Delivery Method Room Air Intake Visit Reasons: shortness of breath Intake Note: pt is here for follow up and states she is stable with her breathing, still using incentive spriometer Electrical And Instrument Technician Required: No Allergies sucralfate [Carafate] Allergy (Intermediate, Verified 11/22/23 10:11) hives NSAIDS (Non-Steroidal Anti-Inflamma Adverse Reaction (Intermediate, Verified 11/22/23 10:11) cannot take due to gastric bypass history Medication List - Last Reconciled 11/22/23 by Oriana Smith MD [2 inch cloth tape As directed] [4x4 sterile gauze pads As directed] alendronate (Fosamax) 70 mg PO QWEEK 90 days aripiprazole 10 mg PO QAM ascorbic acid (vitamin C) 1,000 mg PO QAM bupropion HCl XL (Wellbutrin XL) 300 mg PO QAM bupropion HCl XL 150 mg PO QAM calcium jxy-hau-K4-Zn-copy writer-fortino [id number] na-kg-mmgl-mg (Calcium Citrate Plus) 1 tab PO QAM cholecalciferol (vitamin D3) 50 mcg PO QPM escitalopram oxalate (Lexapro) 20 mg PO QAM ferrous sulfate (Feosol) 325 mg PO QPM hydrochlorothiazide 25 mg PO QAM lorazepam 0.5 mg PO DAILY PRN multivitamin (Daily Multi-Vitamin tablet) 1 tab PO QPM oxycodone 5 mg PO Q6H PRN pantoprazole 40 mg PO QAM primidone 50 mg PO BEDTIME propranolol ER 60 mg PO BEDTIME prucalopride (Motegrity) 2 mg PO DAILY ropinirole 0.25 mg PO BEDTIME sennosides-docusate sodium 8.6-50 mg (Senexon-S) 2 tabs PO BEDTIME PRN Do you need a note to return to daycare/school/sports/work: No HPI HPI shortness of breath: Details: This 78 years old very pleasant female comes after 6 months for follow-up. Her main complaint is just getting short of breath when she walks fast or climbing stairs. This is relatively normal for her, as she is grossly overweight. She does not have any intrinsic lung disease, just has restrictive disorder due to obesity. She has been advised to do deep breathing exercises with incentive spirometry device which she does 3 times a day very regularly. She does not need to use any bronchodilators. She has had no respiratory infection. She walks around in the house without any difficulty. Has no cough or wheezing. [facility], [facility] Medical History Preoperative cardiovascular examination Change in bowel movement Traumatic seroma of right thigh Hip pain, right Postprocedural seroma of skin and subcutaneous tissue following other procedure Open wound of right hip and thigh Peripheral vascular disease Right rib fracture Menopause Pain management Pain management contract agreement Open wound of right lower leg with complication Shortness of breath Cough Edema Influenza A H1N1 infection Hospital discharge follow-up Cellulitis of right leg Varicose veins of right lower extremity with inflammation Enterococcus faecalis infection Abscess Hip pain, right Obesity Lymphedema Morbid obesity due to excess calories Pre-op evaluation Colon cancer screening Encounter for general adult medical examination with abnormal findings Medicare annual wellness visit, subsequent Family history of anesthesia complication Back pain Arthritis Renal calculi Post-influenza syndrome Tremor Peripheral vascular disease Right bundle branch block (RBBB) Aortic valve calcification Mitral annular calcification Nocturnal hypoxemia COPD (chronic obstructive pulmonary disease) Restrictive lung disease Stasis edema of both lower extremities Nail fungus Chronic GERD Depression, major, recurrent Hypertension, essential Surgical History History of excision of lesion (10/20/23) History of total hip arthroplasty S/P gastric bypass History of surgery on lower extremity (01/25/23) History of surgery H/O colonoscopy History of cataract extraction History of bilateral tubal ligation History of tonsillectomy Family History Father No problems noted. Mother Alzheimer's disease Maternal Grandmother Cancer Maternal Grandfather No problems noted. Paternal Grandfather No problems noted. Paternal Grandmother No problems noted. Maternal Aunt Cancer Sister Colon cancer Son No problems noted. Daughter No problems noted. Social History Household Members: Children Household Members Other:: daughter Housing: House Housing Other:: mobile home Are you a primary director of health care marketing to a significant other at home: No Do you presently have visiting nurse or other home services: No Alcohol intake: never Patient Tobacco Use Status: Former Tobacco user Tobacco use type: Cigarette Years Smoked: 40 e-Cigarette/Vaping Use: Currently Using Second Hand Smoke Exposure: No Advance Directives Date on File: 03/13/15 service: No Current occupational status: retired and other Current occupation: right handed Cognitive needs: No Hearing needs: No Vision needs: No Review of Systems Const All systems reviewed & are unremarkable except as noted in HPI and below Eyes Reports no additional complaints ENT Reports no additional complaints Card Reports leg edema and Reports dyspnea Resp Reports as per HPI and Reports dyspnea GI Reports no additional complaints Reports no additional complaints Musc Reports back pain and Reports arthralgias (Mild) Skin/Breast Reports system reviewed and no additional complaints, except as documented Neuro Reports no additional complaints Psych Reports anxiety Endo Reports no additional complaints Valeriy/Lymph Reports no additional complaints Physical Exam Vital Signs: Last Vital Signs Pulse 66 11/22/23 09:56 BP 122/68 11/22/23 09:56 Pulse Ox 97 11/22/23 09:56 Oxygen Delivery Method Room Air 11/22/23 09:56 BMI result Body Mass Index 41.2 Const Other: Patient is grossly obese. Her obesity is mainly abdominal and of lower extremities. General: comfortable, no acute distress, alert and awake Orientation/consciousness: patient oriented x3 HEENT Head: Yes normal to inspection General nose exam: No nasal polyps present and No nasal discharge present Face and sinus: Yes sinuses nontender Mouth: oropharynx normal Throat: Yes posterior oropharynx normal (Oropharynx is only slightly crowded, Mallampati class 2) Eyes General: appearance normal, both eyes and all related structures Neck Neck: Yes normal visual inspection, Yes no lymphadenopathy, Yes trachea midline and Yes no JVD Thyroid: Thyroid normal Chest Chest palpation & inspection: normal inspection of the chest, normal palpation of entire chest wall and no tenderness Resp Effort & Inspection: normal respiratory effort Auscultation: clear to auscultation bilaterally, no crackles and no wheezes Percussion: other (Breath sounds are slightly distant but no wheezes or rhonchi are heard) Cardio Palpation: PMI not normal (PMI is not palpable) Rate: regular rate Rhythm: regular rhythm Heart sounds: no gallops and no murmurs GI Palpation (GI): Soft to palpation, Tenderness to palpation present (GI), No hepatosplenomegaly present and Palpable mass present Auscultation: normal bowel sounds Back/Spine/Pelvis Thoracic/Lumbar Spine: thoracic and lumbar spine normal to inspection and thoraco-lumbar ROM limited Neuro General: patient oriented x3 and no focal motor deficits Cranial nerves: Yes CN's II-XII intact bilaterally Extrem General: Yes normal to inspection, Yes no calf tenderness and Yes edema (There is massive edema of both lower extremities. Has compressive stockings) Psych Appearance: grossly normal and well kempt Speech and movement: Normal speech and movement present Assessment & Plan Assessment & Plan (1) Restrictive lung disease: Comment: BECAUSE OF HER MORBID OBESITY , SHE HAS A MINIMAL DEGREE OF RESTRICTIVE PATTERN, OTHERWISE PULMONARY FUNCTION TEXT WAS BASICALLY NORMAL. Code(s): J98.4 - Other disorders of lung Category: Medical Plan: TX : ADVISED TO DO DEEP BREATHING EXERCISES 2 TO 3 TIMES A DAY, DOES HAVE INCENTIVE SPIROMETRY DEVICE AT HOME. ADVISED TO LOSE WEIGHT SLOWLY. DOES NOT NEED TO USE ANY BD INHALORS REVISIT TO ME ONLY P.R.N.. (2) COPD (chronic obstructive pulmonary disease): Comment: SHE DOES HAVE HISTORY. OF SMOKING IN THE PAST HAS OCCASIONAL COUGH AND SHORTNESS OF BREATH ON WALKING FAST. HOWEVER DOES NOT HAVE ANY WHEEZING ATTACKS. CLINICALLY I DO NOT THINK SHE HAS ANY SIGNIFICANT DEGREE OF COPD Code(s): J44.9 - Chronic obstructive pulmonary disease, unspecified Category: Medical Qualifiers: COPD type: emphysema Emphysema type: other Qualified Code(s): J43.8 - Other emphysema Plan: DOES NOT NEED TO USE ANY BRONCHODILATORS (3) Nocturnal hypoxemia: Comment: MINIMAL NOCTURNAL HYPOXEMIA WAS RECORDED ON HOME-BASED SLEEP STUDY. O2 SAT BELOW 88% FOR 8 MINUTES. 6 MINUTE WALK TEST WAS NORMAL Code(s): G47.34 - Idiopathic sleep related nonobstructive alveolar hypoventilation Category: Medical Plan: NO NEED OF USING OXYGEN (4) Stasis edema of both lower extremities: Comment: CHRONIC STASIS EDEMA OF LOWER EXTREMITIES. HAS HAD CHRONIC SEEPING OF FLUID FROM THE LEGS, WHICH IS NOW CONTROLLED WITH USE OF COMPRESSIVE STOCKINGS. Code(s): I87.303 - Chronic venous hypertension (idiopathic) without complications of bilateral lower extremity Category: Medical Plan: CONTINUE TO USE COMPRESSIVE STOCKINGS ON A REGULAR BASIS. Coding Level of Care Code Est Pt Level 3 (57847) Diagnoses Restrictive lung disease J98.4 Other emphysema J43.8 COPD type: emphysema Emphysema type: other Nocturnal hypoxemia G47.34 Stasis edema of both lower extremities I87.303
[2023-11-22 09:56] VITALS: BP 122/68; PULSE 66; O2SAT 97; BMI 41.2
== END 2023-11-22 11:39 | disposition home or self-care (01) ==
PROVIDERS: PCP Internal Medicine; Visit Provider Internal Medicine
DX: J98.4 Other disorders of lung (principal); J43.8 Other emphysema; G47.34 Idiopathic sleep related nonobstructive alveolar hypoventilation; I87.303 Chronic venous hypertension (idiopathic) without complications of bilateral lower extremity
CPT/HCPCS: 99213

== ENCOUNTER → 2023-11-22 09:44 | Outpatient (BNVA) | payer MEDICARE, MEDICAID, SELFPAY | PROVIDERS: PCP Internal Medicine; Visit Provider Internal Medicine | DX: J98.4 Other disorders of lung (principal); J43.8 Other emphysema; G47.34 Idiopathic sleep related nonobstructive alveolar hypoventilation; I87.303 Chronic venous hypertension (idiopathic) without complications of bilateral lower extremity | CPT/HCPCS: 99212 ==

== ENCOUNTER 2023-11-30 10:34 | Outpatient (AMB) | payer MEDICARE, MEDICAID, SELFPAY ==
--- NOTE | 2023-11-30 10:39 | A.OFFVIS_ITS ---
Vital Signs 11/30/23 10:40 Height 4 ft 10 in Weight 197 lb 5.019 oz BMI 41.2 Pulse 62 Intake Visit Reasons: 2wk S/P wide excision Rt hip scar Intake Note: Patient is seen in office for 2 weeks follow up visit, post wide excision of right hip scar. Pt c/o: denies discharge, redness, or any other concerns Seamer Elastic Band Required: No Manufacturing Process Technician: Manufacturing Process Technician Present Accompanied by: Self / Same As Patient Allergies sucralfate [Carafate] Allergy (Intermediate, Verified 11/30/23 10:40) hives NSAIDS (Non-Steroidal Anti-Inflamma Adverse Reaction (Intermediate, Verified 11/30/23 10:40) cannot take due to gastric bypass history Medication List - Last Reconciled 11/30/23 by Vini Mosquera MD [2 inch cloth tape As directed] [4x4 sterile gauze pads As directed] alendronate (Fosamax) 70 mg PO QWEEK 90 days aripiprazole 10 mg PO QAM ascorbic acid (vitamin C) 1,000 mg PO QAM bupropion HCl XL (Wellbutrin XL) 300 mg PO QAM bupropion HCl XL 150 mg PO QAM calcium kzy-lff-L3-Zn-marketing copywriter-fortino [id number] vw-pn-fito-mg (Calcium Citrate Plus) 1 tab PO QAM cholecalciferol (vitamin D3) 50 mcg PO QPM escitalopram oxalate (Lexapro) 20 mg PO QAM ferrous sulfate (Feosol) 325 mg PO QPM hydrochlorothiazide 25 mg PO QAM lorazepam 0.5 mg PO DAILY PRN multivitamin (Daily Multi-Vitamin tablet) 1 tab PO QPM oxycodone 5 mg PO Q6H PRN pantoprazole 40 mg PO QAM primidone 50 mg PO BEDTIME propranolol ER 60 mg PO BEDTIME prucalopride (Motegrity) 2 mg PO DAILY ropinirole 0.25 mg PO BEDTIME sennosides-docusate sodium 8.6-50 mg (Senexon-S) 2 tabs PO BEDTIME PRN HPI Comments Details: Patient returns for final wound check. She reports no pain, redness or discharge from the incision. She feels well with no new complaints. [facility] Medical History Preoperative cardiovascular examination Change in bowel movement Traumatic seroma of right thigh Hip pain, right Postprocedural seroma of skin and subcutaneous tissue following other procedure Open wound of right hip and thigh Peripheral vascular disease Right rib fracture Menopause Pain management Pain management contract agreement Open wound of right lower leg with complication Shortness of breath Cough Edema Influenza A H1N1 infection Hospital discharge follow-up Cellulitis of right leg Varicose veins of right lower extremity with inflammation Enterococcus faecalis infection Abscess Hip pain, right Obesity Lymphedema Morbid obesity due to excess calories Pre-op evaluation Colon cancer screening Encounter for general adult medical examination with abnormal findings Medicare annual wellness visit, subsequent Family history of anesthesia complication Back pain Arthritis Renal calculi Post-influenza syndrome Tremor Peripheral vascular disease Right bundle branch block (RBBB) Aortic valve calcification Mitral annular calcification Nocturnal hypoxemia COPD (chronic obstructive pulmonary disease) Restrictive lung disease Stasis edema of both lower extremities Nail fungus Chronic GERD Depression, major, recurrent Hypertension, essential Surgical History History of excision of lesion (10/20/23) History of total hip arthroplasty S/P gastric bypass History of surgery on lower extremity (01/25/23) History of surgery H/O colonoscopy History of cataract extraction History of bilateral tubal ligation History of tonsillectomy Family History Father No problems noted. Mother Alzheimer's disease Maternal Grandmother Cancer Maternal Grandfather No problems noted. Paternal Grandfather No problems noted. Paternal Grandmother No problems noted. Maternal Aunt Cancer Sister Colon cancer Son No problems noted. Daughter No problems noted. Social History Household Members: Children Household Members Other:: daughter Housing: House Housing Other:: mobile home Are you a primary post anesthesia care unit nurse to a significant other at home: No Do you presently have visiting nurse or other home services: No Alcohol intake: never Patient Tobacco Use Status: Former Tobacco user Tobacco use type: Cigarette Years Smoked: 40 e-Cigarette/Vaping Use: Currently Using Second Hand Smoke Exposure: No Advance Directives Date on File: 03/13/15 service: No Current occupational status: retired and other Current occupation: right handed Cognitive needs: No Hearing needs: No Vision needs: No Physical Exam Vital Signs: Last Vital Signs Pulse 62 11/30/23 10:40 BMI result Body Mass Index 41.2 Const General: comfortable Nutritional Appearance: well nourished Orientation/consciousness: patient oriented x3 Resp Effort & Inspection: normal respiratory effort Neuro General: patient oriented x3 Extrem Other: Right hip incision is clean, dry and intact without fluctuance or tenderness. Discharge could be expressed. Wounds are now well healed. Assessment & Plan Assessment & Plan (1) Wound, open, hip or thigh with complication: Code(s): S71.009A - Unspecified open wound, unspecified hip, initial encounter; S71.109A - Unspecified open wound, unspecified thigh, initial encounter Category: Medical Qualifiers: Encounter type: initial encounter Laterality: right Qualified Code(s): S71.001A - Unspecified open wound, right hip, initial encounter; S71.101A - Unspecified open wound, right thigh, initial encounter Plan Patient returns for final postoperative visit. Her wounds are now well healed without any redness or discharge. She should follow up as needed. Coding Level of Care Code Global (94382) Diagnoses Open wound of right hip and thigh with complication, initial encounter S71.001A; S71.101A Encounter type: initial encounter Laterality: right
[2023-11-30 10:40] VITALS: PULSE 62; BMI 41.2
== END 2023-11-30 10:42 | disposition home or self-care (01) ==
PROVIDERS: PCP Internal Medicine; Visit Provider Surgery
DX: S71.001A Unspecified open wound, right hip, initial encounter (principal); S71.101A Unspecified open wound, right thigh, initial encounter
CPT/HCPCS: 99024

== ENCOUNTER → 2023-11-30 10:34 | Outpatient (BNVA) | payer MEDICARE, MEDICAID, SELFPAY | PROVIDERS: PCP Internal Medicine; Visit Provider Surgery | DX: Z09 Encounter for follow-up examination after completed treatment for conditions other than malignant neoplasm (principal) | CPT/HCPCS: 99212 ==

== ENCOUNTER 2023-12-10 07:00 | Outpatient (RCR) | payer MEDICARE, MEDICAID, SELFPAY ==
--- NOTE | 2023-11-10 07:36 | MHC.PT.EP ---
[facility] [place] Office [place] Office [place] Office [address] Iwona Kirk [address] [phone] F: [phone] F: [phone] F: [phone] F: [phone] Physical Therapy Plan of Care Date of Evaluation: 11/10/23 Date of Surgery: n/a Diagnosis: cervicalgia Assessment: Patient is a 78 year old female presenting to PT with complaints of pulling in her neck. Pt reports onset of pulling began worsening about 1 month ago due to insidious onset. She presents today with impairments in posture and forward head positioning. Pt's current occupation is none but enjoys crafting, with baseline physical activities including crafting. 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 Clinical presentation today is most consistent with signs and sx associated with postural neck impairments and pt will benefit from skilled PT 2 x week x 4 weeks to address the following problems and impairments noted upon evaluation: posture and forward head positioning. These problems limit the patient with the following functional activities: driving, ADLs, crafting. The prescribed treatment plan of care is medically necessary. Co-morbidities of lymphedema, tremor, COPD, has a drain in R hip from operation were identified and taken into considerations of plan of care. Pt was educated on HEP, role of PT, prognosis, POC. Frequency and Duration: The patient will be seen 2 x week x 4 weeks Short Term Goals: Pt will demonstrate less cues during exercises to keep upright posture with neutral gaze in 2 weeks. Pt will demonstrate reports of less pulling in the posterior neck in 2 weeks. Snf Goals: Pt will demonstrate compliance with HEP for fci management of posture in 4 weeks. Pt will report less feelings of being unable to lift her head in 4 weeks for improved tolerance to ADLs. Treatment Plan: Modalities to reduce pain, spasms and effusion. Manual therapy to restore motion and function. Therapeutic exercise to improve strength and flexibility. Neuromuscular re-education for posture and balance. Therapeutic activities to return to functional activities of daily living. Electronically signed by: Betty Whitaker, PT, DPT, ATC Please sign and return to therapist. Thank you for your referral.
--- NOTE | 2023-12-10 07:40 | MHC.PT.DC ---
[facility] [place] [facility] [place] [facility] [address] [phone] F: [phone] F: [phone] F: [phone] F: [phone] Physical Therapy Discharge Report Diagnosis: cervicalgia Date of Surgery: n/a Date of Evaluation: 11/10/23 Date of Discharge: 12/10/23 Treatments to Date: 9 Cancellations to Date: 0 No Shows to Date: 0 Discharge Status: Achieved Goals Improved Function Independent with HEP Discharge Summary: 12/10/2023: Pt has made good progress since start of care in terms of the pulling that she was previously experiencing. She still has no pain. She feels the exercises have helped her and she is motivated to continue with them. We discussed that due to the nature of her posture it will take continuation of her HEP to avoid reverting back to the pulling sensations that she was previously having. At this time max benefits of PT have been provided and skilled PT is no longer indicated. She is in agreement with d/c today. Electronically signed by: Betty Whitaker, PT, DPT, ATC Please sign and return to therapist. Thank you for your referral.
== END 2023-12-10 07:40 | disposition home or self-care (01) ==
LOC: HO.PTCHIC 07:00
PROVIDERS: PCP Internal Medicine; Visit Provider Internal Medicine
DX: M54.2 Cervicalgia (principal)
CPT/HCPCS: 97110; 97162

== ENCOUNTER 2024-01-31 06:13 | Outpatient (REF) | payer MEDICARE, MEDICAID, SELFPAY ==
[2024-01-31 10:29] LABS: MANUAL DIFF FLAG NO
[2024-01-31 10:35] LABS: Basophils Percent Auto 0.5 % (0-2); Eosinophils Absolute Auto 0.2 X10*3/uL (0.0-0.4); Eosinophils Percent Auto 2.7 % (0-4); Hematocrit 36.6 % (37.0-47.0); Hemoglobin 11.6 g/dl (12.0-16.0); Imm Gran Abs Auto 0.01 X10*3/uL (0.00-0.03); Imm Gran Pct Auto 0.2 % (0.0-0.4); Lymphocytes Absolute Auto 1.6 X10*3/uL (1.2-4.9); Lymphocytes Percent Auto 29.5 % (20-40); Mean Corpuscular HGB Conc 31.7 g/dl (31.0-35.0); Mean Corpuscular Hemoglobin 31.9 pg (27.0-33.0); Mean Corpuscular Volume 100.5 fL (80.0-98.0); Mean Platelet Volume 9.6 fL (9.4-12.3); Monocytes Absolute Auto 0.4 X10*3/uL (0.1-1.2); Monocytes Percent Auto 7.6 % (2-11); Neutrophils Absolute Auto 3.3 x10*3/uL (2.0-8.3); Neutrophils Percent Auto 59.5 % (45-73); Platelet Count 230 X10*3/uL (160-400); Red Blood Count 3.64 X10*6/uL (4.20-5.50); White Blood Count 5.5 X10*3/uL (4.8-10.8)
[2024-01-31 11:32] LABS: Alanine Aminotransferase 13 U/L (0-31); Alkaline Phosphatase 79 U/L (39-117); Anion Gap 11 (12-20); Aspartate Amino Transferase 17 U/L (5-31); Bilirubin Total 0.4 mg/dL (0.0-1.0); Blood Urea Nitrogen 19 mg/dL (9-16); Calcium 8.9 mg/dL (8.4-10.2); Carbon Dioxide 31 mmol/L (22-29); Chloride 102 mmol/L (96-108); Cholesterol 172 mg/dL (<200); Estimated Glomerular Filt Rate 50; Glucose Fasting 89 mg/dL (60-99); HDL Cholesterol 49 mg/dL (>40); LDL Cholesterol Calculated 92 mg/dL (<100); Potassium 4.1 mmol/L (3.3-5.1); Sodium 140 mmol/L (135-145); Total Protein 6.9 g/dL (6.5-8.0); Triglycerides 157 mg/dL (<150)
== END 2024-01-31 06:14 | disposition home or self-care (01) ==
LOC: HO.HMGCLDS 06:13
PROVIDERS: PCP Internal Medicine; Visit Provider Internal Medicine
DX: I10 Essential (primary) hypertension (principal); F33.41 Major depressive disorder, recurrent, in partial remission; K21.9 Gastro-esophageal reflux disease without esophagitis; E66.01 Morbid (severe) obesity due to excess calories
CPT/HCPCS: 36415; 80053; 80061; 84443; 85025

== ENCOUNTER 2024-02-22 10:11 | Outpatient (AMB) | payer MEDICARE, MEDICAID, SELFPAY ==
[2024-02-22 10:16] VITALS: BP 132/80; PULSE 65; O2SAT 93; BMI 39.2
--- NOTE | 2024-02-22 10:16 | MHC.PC.OV ---
Vital Signs 02/22/24 10:16 Height 4 ft 10 in Weight 187 lb 6 oz BMI 39.2 BP 132/80 Blood Pressure Location Rt brachial Position Sitting Pulse 65 Pulse Source Pulse Oximeter Pulse Oximetry (%) 93 Oxygen Delivery Method Room Air Intake Visit Reasons: Annual PE Allergies sucralfate [Carafate] Allergy (Intermediate, Verified 02/22/24 10:17) hives NSAIDS (Non-Steroidal Anti-Inflamma Adverse Reaction (Intermediate, Verified 02/22/24 10:17) cannot take due to gastric bypass history Medication List - Last Reconciled 02/22/24 by Kayla Smith MD [2 inch cloth tape As directed] [4x4 sterile gauze pads As directed] alendronate (Fosamax) 70 mg PO QWEEK 90 days aripiprazole 10 mg PO QAM ascorbic acid (vitamin C) 1,000 mg PO QAM bupropion HCl XL (Wellbutrin XL) 300 mg PO QAM bupropion HCl XL 150 mg PO QAM calcium [id number]-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 [phone] am-rl-aufu-mg (Calcium Citrate Plus) 1 tab PO QAM cholecalciferol (vitamin D3) 50 mcg PO QPM escitalopram oxalate (Lexapro) 20 mg PO QAM ferrous sulfate (Feosol) 325 mg PO QPM hydrochlorothiazide 25 mg PO QAM lorazepam 0.5 mg PO DAILY PRN multivitamin (Daily Multi-Vitamin tablet) 1 tab PO QPM oxycodone 5 mg PO Q6H PRN pantoprazole 40 mg PO QAM primidone 50 mg PO BEDTIME propranolol ER 60 mg PO BEDTIME prucalopride (Motegrity) 2 mg PO DAILY ropinirole 0.25 mg PO BEDTIME sennosides-docusate sodium 8.6-50 mg (Senexon-S) 2 tabs PO BEDTIME PRN Tobacco use date assessed: 02/22/24 Fall risk assessment: No Falls in past year Last assessed Fall Risk: 02/22/24 Dental Screening Dental Screen Date: 02/22/24 Did you have a dental visit in the last 12 months?: Yes Did you have a dental problem in the last 6 months where you did not have access to dental care?: No Was dental information given to patient?: Patient has dentist HPI Annual PE HPI Details Patient is 78-year-old female came in today for physical exam appointment Patient have abnormal skin growth dorsal aspect of left hand for years She feels as if it is getting bigger, she need to see a transportation design engineer for biopsy Patient has already seen Gastroenterology, colonoscopy [facility] done recently reviewed with the patient GFR has reduced to 50 we will continue to monitor Electrolytes and creatinine is within normal limit Patient was instructed not to take any NSAIDs which she is not taking as she has history of gastric bypass Patient is trying to lose weight and has been able to do so by walking She is complaining of right hip/groin pain which is off and on when she walks a lot She has a history of total right hip arthroplasty Hypertension: patient is taking hydrochlorothiazide 25 mg and tolerating. She is on pantoprazole 40 mg for chronic GERD. Symptoms are stable this medication is through Gastroenterology She is seeing neurologist and is taking primidone and propranolol through their office for tremors. Metformin is through her psychiatrist to aid as a weight loss medication Patient also suffer from major depression and bipolar disorder, taking Abilify and Wellbutrin She says that she has been taking this medication for years and usually have a virtual visit with the psych med prescriber. Sleep apnea and COPD management through hearing specialist Dr. Smith Only medication from PCP office is hydrochlorothiazide and Fosamax now for osteoporosis She will need repeat bone density May of 2025 Follow-up six-month, labs are needed before visit [facility] Medical History Encounter for general adult medical examination with abnormal findings Hip pain, right Preoperative cardiovascular examination Change in bowel movement Traumatic seroma of right thigh Postprocedural seroma of skin and subcutaneous tissue following other procedure Open wound of right hip and thigh Peripheral vascular disease Right rib fracture Menopause Pain management Pain management contract agreement Open wound of right lower leg with complication Shortness of breath Cough Edema Influenza A H1N1 infection Hospital discharge follow-up Cellulitis of right leg Varicose veins of right lower extremity with inflammation Enterococcus faecalis infection Abscess Hip pain, right Obesity Lymphedema Morbid obesity due to excess calories Pre-op evaluation Colon cancer screening Medicare annual wellness visit, subsequent Family history of anesthesia complication Back pain Arthritis Renal calculi Post-influenza syndrome Tremor Peripheral vascular disease Right bundle branch block (RBBB) Aortic valve calcification Mitral annular calcification Nocturnal hypoxemia COPD (chronic obstructive pulmonary disease) Restrictive lung disease Stasis edema of both lower extremities Nail fungus Chronic GERD Depression, major, recurrent Hypertension, essential Surgical History History of excision of lesion (10/20/23) History of total hip arthroplasty S/P gastric bypass History of surgery on lower extremity (01/25/23) History of surgery H/O colonoscopy History of cataract extraction History of bilateral tubal ligation History of tonsillectomy Family History Father No problems noted. Mother Alzheimer's disease Maternal Grandmother Cancer Maternal Grandfather No problems noted. Paternal Grandfather No problems noted. Paternal Grandmother No problems noted. Maternal Aunt Cancer Sister Colon cancer Son No problems noted. Daughter No problems noted. Social History Household Members: Children Household Members Other:: daughter Housing: House Housing Other:: mobile home Are you a primary care trainer to a significant other at home: No Do you presently have visiting nurse or other home services: No Alcohol intake: never Patient Tobacco Use Status: Former Tobacco user Tobacco use type: Cigarette Years Smoked: 40 e-Cigarette/Vaping Use: Currently Using Second Hand Smoke Exposure: No Advance Directives Date on File: 03/13/15 service: No Current occupational status: retired and other Current occupation: right handed Cognitive needs: No Hearing needs: No Vision needs: No Questionnaire PHQ-9 Over the last 2 weeks, how often have you been bothered by any of the following problems? 1. Little interest or pleasure in doing things: not at all 2. Feeling down, depressed, or hopeless: not at all 3. Trouble falling or staying asleep, or sleeping too much: several days 4. Feeling tired or having little energy: not at all 5. Poor appetite or overeating: not at all 6. Feeling bad about yourself - or that you are a failure or have let yourself or your family down: not at all 7. Trouble concentrating on things, such as reading the newspaper or watching television: not at all 8. Moving or speaking so slowly that other people could have noticed. Or the opposite - being so fidgety or restless that you have been moving around a lot more than usual: not at all 9. Thoughts that you would be better off or of hurting yourself in some way: not at all Total score: 1 Depression Screening Interpretation: Negative Depression Screening Done: Yes [id number] - PHQ-9 Billing: Yes Source: Developed by Drs. Francisco Mendoza, Edyta Moctezuma, Kam Mills and colleagues, with an educational desi from [employer]. Thrive Questionnaire Date Thrive assessed: 02/22/24 I am a: Patient What is your living situation today?: I have a steady place to live Within the past 12 months, did the food you bought not last and you didn't have the money to get more?: Never true Within the past 12 months, did you worry whether your food would run out before you got money to buy more?: Sometimes True Do you have trouble paying for medicines?: No Do you have trouble getting transportation to medical appointments?: No Do you have trouble paying your heating and electricity bill?: No Do you have trouble taking care of your child, family member or friend?: No Do you have trouble with day-to-day activities such as bathing, preparing meals, shopping, managing finances, etc.?: No Are you currently unemployed and looking for a job?: No Are you interested in more education?: No Please select the resources that you would like help with: None Currently or been in a relationship where the following occur: No concerns reported THRIVE Score: 1 AUDIT C Alcohol Use Questionnaire (AUDIT-C) 1. How often do you have a drink containing alcohol?: Never 3. How often do you have six or more drinks on one occasion?: Never Total Score: 0 Score Reviewed/Action Taken: Yes GERMÁN-7 AMB Questionnaire GERMÁN-7 Date GERMÁN - 7 assessed: 02/22/24 Feeling nervous, anxious, or on edge: 1 = Several days Not being able to stop or control worryin = Not at all Worrying too much about different things: 1 = Several days Trouble relaxin = Not at all Being so restless that it is hard to sit still: 0 = Not at all Becoming easily annoyed or irritable: 0 = Not at all Feeling afraid as if something awful might happen: 0 = Not at all Total GERMÁN-7 score (0-4 normal; 5-9 mild; 10-14 moderate; 15-21 severe): 2 Source: Developed by Drs. Francisco Mendoza, Edyta Moctezuma, Kam Mills and colleagues, with an educational desi from [employer]. GERMÁN-7 Assessment Billing GERMÁN-7 Assessment Tool: GERMÁN-7 Assessment 66709 Review of Systems Const Denies chills, Denies fever(s) and Denies headache(s) Eyes Denies blurry vision ENT Denies headache(s), Denies nasal discharge, Denies nasal obstruction, Denies odynophagia and Denies sinus pain Card Denies chest pain at rest and Denies chest pain with activity Resp Denies cough and Denies hemoptysis GI Denies diarrhea, Denies odynophagia, Denies vomiting and Denies hematemesis Reports as per HPI Skin/Breast Reports as per HPI Neuro Denies Neuro-related abnormal movements, Denies Abnormal speech present, Denies headache(s) and Denies Sensory deficit (Neuro) Psych Denies mood swings and Denies paranoia Endo Reports as per HPI Valeriy/Lymph Reports as per HPI Aller/Immun Reports as per HPI Physical exam (Primary Care) Vital Signs: Last Vital Signs Pulse 65 02/22/24 10:16 BP 132/80 02/22/24 10:16 Pulse Ox 93 02/22/24 10:16 Oxygen Delivery Method Room Air 02/22/24 10:16 BMI result Body Mass Index 39.2 Tobacco/Smoking Status: Tobacco use Status Tobacco use date assessed 02/22/24 02/22/24 10:20 Patient Tobacco Use Status Former Tobacco user 02/22/24 10:20 Tobacco use type Cigarette 02/22/24 10:20 e-Cigarette/Vaping Use Currently Using 02/22/24 10:20 PHQ-9: PHQ-9 Score PHQ-9: Total score 1 02/22/24 11:03 Depression Screening Interpretation: Negative Thrive Assessment: Date of Thrive Assessment Date Thrive assessed 02/22/24 02/22/24 10:20 Currently or been in a relationship where the following occur: No concerns reported Const General: cooperative, comfortable and no acute distress Orientation/consciousness: patient oriented x3 HENMT Head: Yes normocephalic and Yes atraumatic Eyes General: appearance normal, both eyes and all related structures Pupils: Equal, round and reactive pupils present EOM: EOMs intact bilaterally Neck Neck: Yes supple and No lymphadenopathy Thyroid: Thyroid normal Lymphatic: no lymphadenopathy noted Chest Breast/axilla palpation: normal palpation of the breasts Resp Effort & Inspection: normal respiratory effort and able to speak in complete sentences Auscultation: clear to auscultation bilaterally Cardio Heart sounds: S1 normal heart sound present and S2 normal heart sound present GI Palpation (GI): Soft to palpation and nontender Auscultation: normal bowel sounds General: Yes no CVA tenderness Back/Spine/Pelvis Other: Kyphosis present age and posture related Back: no CVA tenderness Skin General skin exam: elasticity normal and turgor normal Full body images: 1. Raised scaly growth size of almond Neuro Other: Uses cane for ambulation, however she has passed Romberg and tandem walk today General: patient oriented x3 Cranial nerves: Yes Equal, round and reactive pupils present Speech: No Abnormal speech present Sensory Exam: No Sensory deficit (Neuro) Coordination: tandem gait normal and Romberg test negative Extrem General: Yes normal exam except as noted and No edema Coding Level of Care Code Est Pt Level 4 (18009) Est Pt Prev Care >65y(84329) Diagnoses Encounter for general adult medical examination with abnormal findings Z00.01 Abnormal skin growth D49.2 Decreased GFR R94.4 Age-related osteoporosis without current pathological fracture M81.0 Osteoporosis type: age-related Presence of current pathological fracture: without current pathological fracture Hypertension, essential I10 Recurrent major depressive disorder, in partial remission F33.41 Active/Remission status: in partial remission Chronic GERD K21.9 Hip pain, right M25.551 Morbid obesity due to excess calories E66.01 Other emphysema J43.8 COPD type: emphysema Emphysema type: other Slow transit constipation K59.01 Constipation type: slow transit constipation S/P total right hip arthroplasty Z96.641 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 Kyphosis type: postural Spinal region: cervicothoracic Use of cane as ambulatory aid Z99.89 Additional Codes GERMÁN-7 Assessment Billing - GERMÁN-7 Assessment Tool: GERMÁN-7 Assessment 15240 ([id number]) Assessment & Plan Assessment & Plan (1) Encounter for general adult medical examination with abnormal findings: Code(s): Z00.01 - Encounter for general adult medical examination with abnormal findings Category: Medical (2) Abnormal skin growth: Code(s): D49.2 - Neoplasm of unspecified behavior of bone, soft tissue, and skin Category: Medical (3) Decreased GFR: Code(s): R94.4 - Abnormal results of kidney function studies Category: Medical (4) Osteoporosis: Code(s): M81.0 - Age-related osteoporosis without current pathological fracture Category: Medical Qualifiers: Osteoporosis type: age-related Presence of current pathological fracture: without current pathological fracture Qualified Code(s): M81.0 - Age-related osteoporosis without current pathological fracture (5) Hypertension, essential: Code(s): I10 - Essential (primary) hypertension Category: Medical (6) Depression, major, recurrent: Code(s): F33.9 - Major depressive disorder, recurrent, unspecified Category: Medical Qualifiers: Active/Remission status: in partial remission Qualified Code(s): F33.41 - Major depressive disorder, recurrent, in partial remission (7) Chronic GERD: Code(s): K21.9 - Gastro-esophageal reflux disease without esophagitis Category: Medical (8) Hip pain, right: Code(s): M25.551 - Pain in right hip Category: Medical (9) Morbid obesity due to excess calories: Code(s): E66.01 - Morbid (severe) obesity due to excess calories Category: Medical (10) COPD (chronic obstructive pulmonary disease): Comment: SHE DOES HAVE HISTORY. OF SMOKING IN THE PAST HAS OCCASIONAL COUGH AND SHORTNESS OF BREATH ON WALKING FAST. HOWEVER DOES NOT HAVE ANY WHEEZING ATTACKS. CLINICALLY I DO NOT THINK SHE HAS ANY SIGNIFICANT DEGREE OF COPD Code(s): J44.9 - Chronic obstructive pulmonary disease, unspecified Category: Medical Qualifiers: COPD type: emphysema Emphysema type: other Qualified Code(s): J43.8 - Other emphysema (11) Constipation: Code(s): K59.00 - Constipation, unspecified Category: Medical Qualifiers: Constipation type: slow transit constipation Qualified Code(s): K59.01 - Slow transit constipation (12) S/P total right hip arthroplasty: Code(s): Z96.641 - Presence of right artificial hip joint Category: Surgical (13) Kyphosis: Code(s): M40.209 - Unspecified kyphosis, site unspecified Category: Medical Qualifiers: Kyphosis type: postural Spinal region: cervicothoracic Qualified Code(s): M40.03 - Postural kyphosis, cervicothoracic region (14) Use of cane as ambulatory aid: Code(s): Z99.89 - Dependence on other enabling machines and devices Category: Medical Plan Patient is 78-year-old female came in today for physical exam appointment Patient have abnormal skin growth dorsal aspect of left hand for years She feels as if it is getting bigger, she need to see a transportation design engineer for biopsy Patient has already seen Gastroenterology, colonoscopy through [facility] done recently reviewed with the patient GFR has reduced to 50 we will continue to monitor Electrolytes and creatinine is within normal limit Patient was instructed not to take any NSAIDs which she is not taking as she has history of gastric bypass Patient is trying to lose weight and has been able to do so by walking She is complaining of right hip/groin pain which is off and on when she walks a lot She has a history of total right hip arthroplasty Hypertension: patient is taking hydrochlorothiazide 25 mg and tolerating. She is on pantoprazole 40 mg for chronic GERD. Symptoms are stable this medication is through Gastroenterology She is seeing neurologist and is taking primidone and propranolol through their office for tremors. Metformin is through her psychiatrist to aid as a weight loss medication Patient also suffer from major depression and bipolar disorder, taking Abilify and Wellbutrin She says that she has been taking this medication for years and usually have a virtual visit with the psych med prescriber. Sleep apnea and COPD management through hearing specialist Dr. Smith Only medication from PCP office is hydrochlorothiazide and Fosamax now for osteoporosis She will need repeat bone density May of 2025 Follow-up six-month, labs are needed before visit Orders: Orders Comprehensive Met. Panel 5 Months D49.2 - Neoplasm of unspecified behavior of bone, soft tissue, and skin, E66.01 - Morbid (severe) obesity due to excess calories, F33.41 - Major depressive disorder, recurrent, in partial remission, I10 - Essential (primary) hypertension, J43.8 - Other emphysema, K21.9 - Gastro-esophageal reflux disease without esophagitis, K59.00 - Constipation, unspecified, M25.551 - Pain in right hip, Z00.01 - Encounter for general adult medical examination with abnormal findings, Z96.641 - Presence of right artificial hip joint Complete Blood Count Auto Diff 5 Months D49.2 - Neoplasm of unspecified behavior of bone, soft tissue, and skin, E66.01 - Morbid (severe) obesity due to excess calories, F33.41 - Major depressive disorder, recurrent, in partial remission, I10 - Essential (primary) hypertension, J43.8 - Other emphysema, K21.9 - Gastro-esophageal reflux disease without esophagitis, K59.00 - Constipation, unspecified, M25.551 - Pain in right hip, Z00.01 - Encounter for general adult medical examination with abnormal findings, Z96.641 - Presence of right artificial hip joint Referrals Dermatology Referral D49.2 - Neoplasm of unspecified behavior of bone, soft tissue, and skin
== END 2024-02-22 13:02 | disposition home or self-care (01) ==
PROVIDERS: PCP Internal Medicine; Visit Provider Internal Medicine
DX: Z00.00 Encounter for general adult medical examination without abnormal findings (principal); F33.41 Major depressive disorder, recurrent, in partial remission; E66.812 Obesity, class 2; J43.8 Other emphysema; Z68.39 Body mass index [BMI] 39.0-39.9, adult; D49.2 Neoplasm of unspecified behavior of bone, soft tissue, and skin; R94.4 Abnormal results of kidney function studies; M81.0 Age-related osteoporosis without current pathological fracture; I10 Essential (primary) hypertension; K21.9 Gastro-esophageal reflux disease without esophagitis; M25.551 Pain in right hip; K59.01 Slow transit constipation

== ENCOUNTER → 2024-02-22 10:11 | Outpatient (BNVA) | payer MEDICARE, MEDICAID, SELFPAY | PROVIDERS: PCP Internal Medicine; Visit Provider Internal Medicine | DX: Z00.01 Encounter for general adult medical examination with abnormal findings (principal); D49.2 Neoplasm of unspecified behavior of bone, soft tissue, and skin; R94.4 Abnormal results of kidney function studies; M81.0 Age-related osteoporosis without current pathological fracture; I10 Essential (primary) hypertension; F33.41 Major depressive disorder, recurrent, in partial remission; K21.9 Gastro-esophageal reflux disease without esophagitis; M25.551 Pain in right hip; E66.01 Morbid (severe) obesity due to excess calories; J43.8 Other emphysema; K59.01 Slow transit constipation; M40.03 Postural kyphosis, cervicothoracic region; Z96.641 Presence of right artificial hip joint; Z99.89 Dependence on other enabling machines and devices | CPT/HCPCS: 96127; 99397 ==

== ENCOUNTER 2024-04-04 07:28 | Outpatient (REF) | payer MEDICARE, SELFPAY ==
--- NOTE | ~2024-04-04 | MM_ITS ---
EXAMINATION: MM SCREENING DIGITAL BREAST TOMOSYNTHESIS, BILATERAL CLINICAL INFORMATION: Screening. Asymptomatic. COMPARISON: Mammography: Comparison is made with available priors TECHNIQUE: Digital breast mammography with tomosynthesis is performed in both the craniocaudal and mediolateral oblique views along with computer-aided detection (CAD). FINDINGS: There are scattered areas of fibroglandular density (ACR BI-RADS breast composition Category b). Left: There are no significant masses, abnormal calcifications, or other abnormalities. Marker clip from previous needle core biopsy. Right: Grouped calcifications upper central breast anterior to middle depth. Developing focal asymmetry lower inner breast middle depth. No other suspicious abnormal findings. MM/MM tomosynthesis screening BI IMPRESSION: Additional imaging is recommended ASSESSMENT: BI-RADS BI-RADS 0 - Incomplete: Needs additional Imaging. RECOMMENDATION: 1. Additional views of the right breast 2. Targeted ultrasound if warranted after review of the additional views. 3. Radiology department staff will contact the patient for additional imaging. Additional Imaging required This examination should not preclude the clinical evaluation of a suspicious palpable abnormality. This patient's information was entered into a reminder system with a target due date for their next mammogram. Electronically signed by: Diane Pillai DO 04/13/2024 09:38 AM EWA
== END 2024-04-04 07:29 | disposition home or self-care (01) ==
LOC: HO.MAMMO 07:28
PROVIDERS: PCP Internal Medicine; Visit Provider Internal Medicine
DX: Z12.31 Encounter for screening mammogram for malignant neoplasm of breast (principal)
CPT/HCPCS: 77063; 77067

== ENCOUNTER → 2024-04-04 07:45 | Outpatient (BNV) | payer MEDICARE, SELFPAY | PROVIDERS: PCP Internal Medicine; Visit Provider Internal Medicine | DX: Z12.31 Encounter for screening mammogram for malignant neoplasm of breast (principal) | CPT/HCPCS: 77063; 77067 ==

== ENCOUNTER 2024-04-13 08:52 | Outpatient (AMB) | payer MEDICARE, SELFPAY ==
--- NOTE | 2024-04-13 10:05 | A.OFFPC_ITS ---
Intake Visit Reasons: pain management Allergies sucralfate [Carafate] Allergy (Intermediate, Verified 04/13/24 10:05) hives NSAIDS (Non-Steroidal Anti-Inflamma Adverse Reaction (Intermediate, Verified 04/13/24 10:05) cannot take due to gastric bypass history Medication List - Last Reconciled 04/13/24 by Kayla Smith MD [2 inch cloth tape As directed] [4x4 sterile gauze pads As directed] alendronate (Fosamax) 70 mg PO QWEEK 90 days aripiprazole 10 mg PO QAM ascorbic acid (vitamin C) 1,000 mg PO QAM bupropion HCl XL (Wellbutrin XL) 300 mg PO QAM bupropion HCl XL 150 mg PO QAM calcium ikr-[id number]-T3-Zn-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-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 250 mg-40 mg- 125 unit-3.75mg (Calcium Citrate Plus) 1 tab PO QAM cholecalciferol (vitamin D3) 50 mcg PO QPM escitalopram oxalate (Lexapro) 20 mg PO QAM ferrous sulfate (Feosol) 325 mg PO QPM hydrochlorothiazide 25 mg PO QAM lorazepam 0.5 mg PO DAILY PRN multivitamin (Daily Multi-Vitamin tablet) 1 tab PO QPM oxycodone 5 mg PO Q6H PRN pantoprazole 40 mg PO QAM primidone 50 mg PO BEDTIME propranolol ER 60 mg PO BEDTIME prucalopride (Motegrity) 2 mg PO DAILY ropinirole 0.25 mg PO BEDTIME sennosides-docusate sodium 8.6-50 mg (Senexon-S) 2 tabs PO BEDTIME PRN Tobacco use date assessed: 04/13/24 Fall risk assessment: 1 Fall in past year Last assessed Fall Risk: 04/13/24 Dental Screening Dental Screen Date: 02/22/24 HPI pain management HPI Details Chief Complaint - Pain in the right hip post-hip replace ment, exacerbated by movement Assessment and Plan 78-year-old female with a history of rig ht hip replacement presenting with right hip pain. The pain occurs when lifting the leg to put on a shoe and while seated. The patient has previously consulted with orthopedics for similar symptoms, which were not deemed significant. Pain management has not been previously pursued. Currently achieving pain relief with Tylenol. Consideration for referral to pain management shows patient interest following online research. 1. Right Hip Pain Patient reports persistent pain in the right hip area following a hip replacement. Pain exacerbates with movement such as lifting the leg. Previous orthopedic evaluations indicated non-concerning findings. Tylenol has been effective in managing the pain, and the patient wishes to continue its use. Discussed the potential for a pain management consultation, and the patient expressed interest after researching options at the [facility]. Arrangements will be made for an appointment with pain management. Advised the patient to contact me if pain increases or if Tylenol no longer provides relief. Problem List - Right Hip Pain Patient Instructions - Continue taking Tylenol as needed for pain management. - Attend the scheduled pain management c onsultation. - Monitor pain symptoms and contact me i f there is an increase in severity or if current pain relief methods cease to be effective. - Report any new symptoms or concerns th at arise before the pain management a ppointment. [facility] Medical History Encounter for general adult medical examination with abnormal findings Hip pain, right Preoperative cardiovascular examination Change in bowel movement Traumatic seroma of right thigh Postprocedural seroma of skin and subcutaneous tissue following other procedure Open wound of right hip and thigh Peripheral vascular disease Right rib fracture Menopause Pain management Pain management contract agreement Open wound of right lower leg with complication Shortness of breath Cough Edema Influenza A H1N1 infection Hospital discharge follow-up Cellulitis of right leg Varicose veins of right lower extremity with inflammation Enterococcus faecalis infection Abscess Hip pain, right Obesity Lymphedema Morbid obesity due to excess calories Pre-op evaluation Colon cancer screening Medicare annual wellness visit, subsequent Family history of anesthesia complication Back pain Arthritis Renal calculi Post-influenza syndrome Tremor Peripheral vascular disease Right bundle branch block (RBBB) Aortic valve calcification Mitral annular calcification Nocturnal hypoxemia COPD (chronic obstructive pulmonary disease) Restrictive lung disease Stasis edema of both lower extremities Nail fungus Chronic GERD Depression, major, recurrent Hypertension, essential Surgical History History of excision of lesion (10/20/23) History of total hip arthroplasty S/P gastric bypass History of surgery on lower extremity (01/25/23) History of surgery H/O colonoscopy History of cataract extraction History of bilateral tubal ligation History of tonsillectomy Family History Father No problems noted. Mother Alzheimer's disease Maternal Grandmother Cancer Maternal Grandfather No problems noted. Paternal Grandfather No problems noted. Paternal Grandmother No problems noted. Maternal Aunt Cancer Sister Colon cancer Son No problems noted. Daughter No problems noted. Social History Household Members: Children Household Members Other:: daughter Housing: House Housing Other:: mobile home Are you a primary home care rn to a significant other at home: No Do you presently have visiting nurse or other home services: No Alcohol intake: never Patient Tobacco Use Status: Former Tobacco user Tobacco use type: Cigarette Years Smoked: 40 e-Cigarette/Vaping Use: Currently Using Second Hand Smoke Exposure: No Use of substances other than those prescribed or required for medical reasons: No Advance Directives: No Advance Directives Information Provided: Yes Advance Directives Date on File: 03/13/15 Nutrition Risks: No Nutritional Risk service: No Current occupational status: retired and other Current occupation: right handed Cognitive needs: No Hearing needs: No Vision needs: No Questionnaire Thrive Questionnaire Date Thrive assessed: 02/15/24 GERMÁN-7 AMB Questionnaire GERMÁN-7 Date GERMÁN - 7 assessed: 02/22/24 Source: Developed by Drs. Francisco Mendoza, Edyta Moctezuma, Kam Mills and colleagues, with an educational desi from [employer]. Review of Systems Const All systems reviewed & are unremarkable except as noted in HPI and below Physical exam (Primary Care) Tobacco/Smoking Status: Tobacco use Status Tobacco use date assessed 04/13/24 04/13/24 10:06 Patient Tobacco Use Status Former Tobacco user 04/13/24 10:06 Tobacco use type Cigarette 04/13/24 10:06 e-Cigarette/Vaping Use Currently Using 04/13/24 10:06 Thrive Assessment: Date of Thrive Assessment Date Thrive assessed 02/15/24 04/13/24 10:06 Telehealth Telehealth Telehealth Platform: [facility] Location of provider rendering services: practice address Location of patient: address on file Patient Identification confirmed using: Name, : Yes Telehealth method: voice only Patient verbally consented to treatment: Yes Patient verbally consented to billing insurance company: Yes Patient informed of any privacy concerns related to visit: Yes Minutes spent on Phone/Video with Pt.: 12 Coding Level of Care Code Tele Est Pt Level 3 (10239) Diagnoses Hip pain, right M25.551 S/P total right hip arthroplasty Z96.641 Assessment & Plan Assessment & Plan (1) Hip pain, right: Code(s): M25.551 - Pain in right hip Category: Medical (2) S/P total right hip arthroplasty: Code(s): Z96.641 - Presence of right artificial hip joint Category: Surgical Plan Chief Complaint - Pain in the right hip post-hip replacement, exacerbated by movement Assessment and Plan 78-year-old female with a history of right hip replacement presenting with right hip pain. The pain occurs when lifting the leg to put on a shoe and while seated. The patient has previously consulted with orthopedics for similar symptoms, which were not deemed significant. Pain management has not been previously pursued. Currently achieving pain relief with Tylenol. Consideration for referral to pain management shows patient interest following online research. 1. Right Hip Pain Patient reports persistent pain in the right hip area following a hip replacement. Pain exacerbates with movement such as lifting the leg. Previous orthopedic evaluations indicated non-concerning findings. Tylenol has been effective in managing the pain, and the patient wishes to continue its use. Discussed the potential for a pain management consultation, and the patient ex pressed interest after researching options at the [facility]. Arrangements will be made for an appointment with pain management. Advised the patient to contact me if pain increases or if Tylenol no longer provides relief. Problem List - Right Hip Pain Patient Instructions - Continue taking Tylenol as needed for pain management. - Attend the scheduled pain management consultation. - Monitor pain symptoms and contact me if there is an increase in severity or if current pain relief methods cease to be effective. - Report any new symptoms or concerns that arise before the pain management leyla ointment. Orders: Referrals Pain Management Referral M25.551 - Pain in right hip, Z96.641 - Presence of right artificial hip joint
== END 2024-04-13 11:27 | disposition home or self-care (01) ==
LOC: HO.HMCC 08:52
PROVIDERS: PCP Internal Medicine; Visit Provider Internal Medicine
DX: M25.551 Pain in right hip (principal); Z96.641 Presence of right artificial hip joint

== ENCOUNTER 2024-04-14 09:01 | Day surgery (SDC) | payer MEDICARE, SELFPAY ==
[2024-04-12 14:55] VITALS: BMI 40.0
--- NOTE | 2024-04-13 10:08 | HO.ANESPROP2 ---
HPI - Anesthesia Eval Consult details Narrative: 78yo F for ?Upper Endoscopy s/p hip scar excision 10/2023 with GA-LMA 4 PMFSH Active Problems Active Problems: All Active Problems Osteoporosis (Acute) Decreased GFR (Acute) Use of cane as ambulatory aid (Acute) Kyphosis (Acute) S/P total right hip arthroplasty (Acute) Hip pain, right (Acute) Abnormal skin growth (Acute) Encounter for general adult medical examination with abnormal findings (Acute) Cervicalgia (Acute) Oropharyngeal dysphagia (Acute) Constipation (Acute) Thoracolumbar back pain (Acute) Anemia (Acute) Tubular adenoma of colon (Acute) Abnormal stress ECG with treadmill (Acute) Post-COVID chronic dyspnea (Acute) Ex-smoker (Acute) Mitral annular calcification (Acute) Aortic valve calcification (Acute) Lymphedema (Acute) Morbid obesity due to excess calories (Acute) Right bundle branch block (Acute) Premature atrial contractions (Acute) Family history of colon cancer (Acute) Nocturnal hypoxemia (Acute) COPD (chronic obstructive pulmonary disease) (Acute) Restrictive lung disease (Acute) Stasis edema of both lower extremities (Acute) Nail fungus (Acute) Chronic GERD (Acute) Depression, major, recurrent (Acute) Hypertension, essential (Acute) Past Medical History Medical History Encounter for general adult medical examination with abnormal findings Hip pain, right Preoperative cardiovascular examination Change in bowel movement Traumatic seroma of right thigh Postprocedural seroma of skin and subcutaneous tissue following other procedure Open wound of right hip and thigh Peripheral vascular disease Right rib fracture Menopause Pain management Pain management contract agreement Open wound of right lower leg with complication Shortness of breath Cough Edema Influenza A H1N1 infection Hospital discharge follow-up Cellulitis of right leg Varicose veins of right lower extremity with inflammation Enterococcus faecalis infection Abscess Hip pain, right Obesity Lymphedema Morbid obesity due to excess calories Pre-op evaluation Colon cancer screening Medicare annual wellness visit, subsequent Family history of anesthesia complication Back pain Arthritis Renal calculi Post-influenza syndrome Tremor Peripheral vascular disease Right bundle branch block (RBBB) Aortic valve calcification Mitral annular calcification Nocturnal hypoxemia COPD (chronic obstructive pulmonary disease) Restrictive lung disease Stasis edema of both lower extremities Nail fungus Chronic GERD Depression, major, recurrent Hypertension, essential Family History Family History Father No problems noted. Mother Alzheimer's disease Maternal Grandmother Cancer Maternal Grandfather No problems noted. Paternal Grandfather No problems noted. Paternal Grandmother No problems noted. Maternal Aunt Cancer Sister Colon cancer Son No problems noted. Daughter No problems noted. Family history of problems with anesthesia: No (Sister long to [facility]) Surgical History Surgical History History of excision of lesion (10/20/23) History of total hip arthroplasty S/P gastric bypass History of surgery on lower extremity (01/25/23) History of surgery H/O colonoscopy History of cataract extraction History of bilateral tubal ligation History of tonsillectomy History of Problems with Anesthesia: No Social History Social History Household Members: Children Household Members Other:: daughter Housing: House Housing Other:: mobile home Are you a primary managed care specialist to a significant other at home: No Do you presently have visiting nurse or other home services: No Alcohol intake: never Patient Tobacco Use Status: Former Tobacco user Tobacco use type: Cigarette Years Smoked: 40 e-Cigarette/Vaping Use: Currently Using Second Hand Smoke Exposure: No Advance Directives Date on File: 03/13/15 service: No Current occupational status: retired and other Current occupation: right handed Cognitive needs: No Hearing needs: No Vision needs: No Meds Allergies Allergy/AdvReac Type Severity Reaction Status Date / Time sucralfate [Carafate] Allergy Intermediate hives Verified 04/13/24 10:05 NSAIDS (Non-Steroidal AdvReac Intermediate cannot Verified 04/13/24 10:05 Anti-Inflamma take due to gastric bypass history Home Medications ?Medication ?Instructions ?Recorded ?Confirmed ?Last Taken ?Type ascorbic acid (vitamin C) 1,000 mg 1,000 mg PO QAM 04/02/20 04/12/24 01/24/23 History tablet bupropion HCl 300 mg 24 hr tablet, 300 mg PO QAM 04/02/20 04/12/24 01/24/23 History extended release (Wellbutrin XL) cholecalciferol (vitamin D3) 50 50 mcg PO QPM 04/02/20 04/12/24 01/24/23 History mcg (2,000 unit) capsule ferrous sulfate 325 mg (65 mg 325 mg PO QPM 04/02/20 04/12/24 Unknown History iron) tablet (Feosol) multivitamin (Daily Multi-Vitamin 1 tab PO QPM 04/02/20 04/12/24 01/24/23 History tablet) escitalopram oxalate 20 mg tablet 20 mg PO QAM 07/30/20 04/12/24 01/24/23 History (Lexapro) bupropion HCl 150 mg 24 hr tablet, 150 mg PO QAM 08/06/21 04/12/24 01/24/23 History extended release propranolol 60 mg capsule,24 60 mg PO BEDTIME 09/19/21 04/12/24 01/24/23 History hr,extended release lorazepam 0.5 mg tablet 0.5 mg PO DAILY PRN Anxiety 06/24/22 04/12/24 01/24/23 History aripiprazole 10 mg tablet 10 mg PO QAM 12/17/22 04/12/24 01/24/23 History calcium 250 mg-magnesium 40 mg-D3 1 tab PO QAM 01/18/23 04/12/24 01/24/23 History 125 unit-zinc [id number]-[id number] tablet (Calcium Citrate Plus) ropinirole 0.25 mg tablet 0.25 mg PO BEDTIME 05/24/23 04/12/24 Unknown History primidone 50 mg tablet 50 mg PO BEDTIME 10/12/23 04/12/24 Unknown History Exam Height,Weight and Vital Signs: Height 5 ft Weight 92.986 kg Pertinent Lab Results Pertinent Lab Results: Laboratory Tests 01/31/24 06:42 WBC 5.5 Hgb 11.6 L Hct 36.6 L Plt Count 230 Sodium 140 Potassium 4.1 Chloride 102 Carbon Dioxide 31 H BUN 19 H Creatinine 1.07 Narrative Narrative: EKG 09/2023 sinus bradycardia at 55/Min; right bundle-branch block pattern Echocardiogram 2022 LVEF of 65-70%; grade 2 diastolic dysfunction; moderate aortic valve calcification but no significant dysfunction; moderate mitral annular calcification. Myocardial perfusion imaging study 2022 likely normal perfusion. Gated LVEF > 70% during stress and rest. Home sleep study is negative for SOULEYMANE. PFT 09/2022 Forced vital capacity 64%, FEV1 73%, FEV1/FVC ratio is 84. [id number] 93%. MVV 75%. Post bronchodilator therapy, there is no change. Total lung capacity 84% and residual volume 90%. Diffusion capacity 87% CONCLUSION: Based on the decreased FVC and FEV1 volumes, there is indication of [id number] restrictive pattern. However, the total lung capacity and residual volume are normal and diffusion capacity is normal. So decreased flow volumes may be just due to decreased effort. Except for possible mild to moderate restrictive disorder, there is no other significant abnormality. Assessment and Plan Assessment Anesthesia Assessment: Chart Reviewed Final Anesthetic Review Family History of Problems with Anesthesia: No (Sister long to wake) History of Problems with Anesthesia: No
[2024-04-14 09:55] VITALS: BMI 34.4
[2024-04-14 10:16] VITALS: BP 144/80; PULSE 88; RESP 16; TEMP 36.8; O2SAT 95
[2024-04-14] MEDS: Lactated Ringers 1,000 ML 100 ML IVCONT (10:28)
--- NOTE | 2024-04-14 10:43 | MHC.SHP ---
Pre-Procedural Eval Section A - 24 Hr Update-Section A only Date of Service: 04/14/24 Section B - Complete if H&P > 30 days Chief Complaint: Dysphagia, oropharyngeal phase Relevant Family History (Specify if Yes): No Relevant Social History: None Present Medications: see Short Stay Collaborative assessment Medical History: Significant History (Change in bowel movement Traumatic seroma of right thigh Hip pain, right Postprocedural seroma of skin and subcutaneous tissue following other procedure Open wound of right hip and thigh Peripheral vascular disease Right rib fracture Menopause Pain management Pain management contract agreement Open ) History of Previous Operations: Relevant previous surgery/procedure and date(s) (History of total hip arthroplasty S/P gastric bypass History of surgery on lower extremity (01/25/23) History of surgery H/O colonoscopy History of cataract extraction History of bilateral tubal ligation History of tonsillectomy) Allergies: Allergies Allergy/AdvReac Type Severity Reaction Status Date / Time sucralfate [Carafate] Allergy Intermediate hives Verified 04/13/24 10:05 NSAIDS (Non-Steroidal AdvReac Intermediate cannot Verified 04/13/24 10:05 Anti-Inflamma take due to gastric bypass history Review of Systems Sugical H&P ROS: Negative: Constitution, Cardiovascular, Respiratory, Neurological, Psychiatric, Hem-Onc, Allergic/Immunologic, Gastrointestinal, Genitourinary, Musculoskeletal, Integumentary, Endocrine and Eyes/Ears/Nose/Throat Exam Surgical H&P Exam: Normal: HEENT, Normal: Heart, Normal: Lungs, Normal: Extremities, Normal: Abdomen, Normal: Skin and Normal: Neurological Plan Diagnosis/Plan: Unchanged I have reviewed the history and physical and performed a pertinent physical examination on my patient. No changes have occurred unless specified. Time Spent With Patient Time: Total time managing care of this patient today ____ minutes.
--- NOTE | 2024-04-14 11:15 | W.PM.OPN ---
Operative Note Operative Note Date of Service: 04/14/24 Narrative: Procedure Description: EGD Indication: dysphagia Anesthesia: MAC FLEXIBLE TRANSORAL UPPER GASTROINTESTINAL ENDOSCOPY UPPER ENDOSCOPY Consent: Indications for the procedure and potential complications of bleeding, perforation, reaction to medications and missed diagnosis were discussed with the patient and informed consent was obtained. Instrument: Olympus GIF H 190 J mid size upper endoscope Monitoring: Vital signs and clinical assessment, continuous EKG monitoring, Pulse oximetry, Carbon Dioxide monitoring and blood pressure monitoring were done throughout the procedure. Procedure: The patient was placed in the left lateral decubitis position and pre-procedure medications were administered and a bite block was placed. The endoscope was inserted into the mouth and advanced under direct vision to the jejunum. A careful inspection was made as the upper endoscope was withdrawn including a retroflexed examination of the proximal stomach; Findings and interventions are described below. Findings: Larynx:normal Esophagus: GE junction at 35 cm, diaphragm hiatus at 37 cm, consistent with 2 cm sliding hiatal hernia, with mild esophagitis, bx taken from GEJ, distal and proximal areas, balloon dilaiton to 18 mm at UES and LES-no tears seen -shcatzki ring noted Stomach pouch: normal . Grade 2 flap valve on retroflexed examination of the cardia. retained sutures noted x 5 removed with cold forceps Jejunum: Normal Intervention: Biopsies as noted above, ballon dilation, foreign body removal Impression/Findings: hiatal hernia schatzki ring esophagitis retained sutures PLAN: change to omeprazole capsules, open capsule and mix granules with apple sauce and take GERD precautions
[2024-04-14 11:25] VITALS: BP 143/51; PULSE 63; RESP 12; TEMP 36.1; O2SAT 95
[2024-04-14 11:40] VITALS: BP 101/71; PULSE 81; RESP 16; TEMP 36.2; O2SAT 98
== END 2024-04-14 12:15 | disposition home or self-care (01) ==
PROVIDERS: PCP Internal Medicine; Visit Provider Internal Medicine Gastroenterology
PROC: 0DJ08ZZ Inspection of Upper Intestinal Tract, Via Natural or Artificial Opening Endoscopic (ICD-10-PCS; CPT 43235; principal; 2024-04-14 11:50)
DX: K22.2 Esophageal obstruction (principal); M79.5 Residual foreign body in soft tissue; K20.80 Other esophagitis without bleeding; K44.9 Diaphragmatic hernia without obstruction or gangrene; R13.12 Dysphagia, oropharyngeal phase; K21.9 Gastro-esophageal reflux disease without esophagitis; K59.00 Constipation, unspecified; I10 Essential (primary) hypertension; J44.9 Chronic obstructive pulmonary disease, unspecified; I45.10 Unspecified right bundle-branch block; Z87.891 Personal history of nicotine dependence
CPT/HCPCS: 43249; 43239; 43247; 88305; 88313; C1726; J2003; J2250; J2704

== ENCOUNTER → 2024-04-14 09:01 | Outpatient (BNV) | payer MEDICARE, SELFPAY | PROVIDERS: PCP Internal Medicine; Visit Provider Internal Medicine Gastroenterology | DX: R13.10 Dysphagia, unspecified (principal); K20.90 Esophagitis, unspecified without bleeding; K22.2 Esophageal obstruction; T18.2XXA Foreign body in stomach, initial encounter | CPT/HCPCS: 43239; 43247; 43249 ==

== ENCOUNTER 2024-04-20 10:14 | Outpatient (AMB) | payer MEDICARE, MEDICAID, SELFPAY ==
--- NOTE | 2024-04-20 10:31 | A.OFFVIS_ITS ---
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 Past medical history significant for osteoporosis, kyphosis, right hip arthroplasty, dysphagia, anemia, tubular adenoma of the colon, mitral annular calcification, lymphedema, obesity, right bundle branch block, nocturnal hypoxemia, COPD, GERD, depression and hypertension Patient has been suffering with this pain for approximately 1 year. She is status post right hip replacement approximately 10 years ago Denies inciting injury, fall, trauma 1 year ago she was re-evaluated by orthopedics, pain improved on its own. She states she had an x-ray at that time with no acute findings. Pain returned approximately 3 months ago without inciting injury. Pain is worse with movement and walking. She ambulates with use of a cane. Pain today is rated as a 5/10 Pain is slightly improved with rest and Tylenol. Endorses anterior right hip pain with some radiation to the groin and right thigh. Patient is unable to take nonsteroidal anti-inflammatory medications due to history of gastric bypass. She has not attempted physical therapy, acupuncture or massage In terms of muscle damage condition is described as dull, sore, tight, squeezing, pulling Pain is negatively impacting patient's enjoyment of life, general activity, ambulation, activity, ability to perform activities of daily living Denies current use of anticoagulants Denies implantable devices, pacemaker defibrillator [facility] Medical History Encounter for general adult medical examination with abnormal findings Hip pain, right Preoperative cardiovascular examination Change in bowel movement Traumatic seroma of right thigh Postprocedural seroma of skin and subcutaneous tissue following other procedure Open wound of right hip and thigh Peripheral vascular disease Right rib fracture Menopause Pain management Pain management contract agreement Open wound of right lower leg with complication Shortness of breath Cough Edema Influenza A H1N1 infection Hospital discharge follow-up Cellulitis of right leg Varicose veins of right lower extremity with inflammation Enterococcus faecalis infection Abscess Hip pain, right Obesity Lymphedema Morbid obesity due to excess calories Pre-op evaluation Colon cancer screening Medicare annual wellness visit, subsequent Family history of anesthesia complication Back pain Arthritis Renal calculi Post-influenza syndrome Tremor Peripheral vascular disease Right bundle branch block (RBBB) Aortic valve calcification Mitral annular calcification Nocturnal hypoxemia COPD (chronic obstructive pulmonary disease) Restrictive lung disease Stasis edema of both lower extremities Nail fungus Chronic GERD Depression, major, recurrent Hypertension, essential Surgical History History of excision of lesion (10/20/23) History of total hip arthroplasty S/P gastric bypass History of surgery on lower extremity (01/25/23) History of surgery H/O colonoscopy History of cataract extraction History of bilateral tubal ligation History of tonsillectomy Family History Father No problems noted. Mother Alzheimer's disease Maternal Grandmother Cancer Maternal Grandfather No problems noted. Paternal Grandfather No problems noted. Paternal Grandmother No problems noted. Maternal Aunt Cancer Sister Colon cancer Son No problems noted. Daughter No problems noted. Social History Household Members: Children Household Members Other:: daughter Housing: House Housing Other:: mobile home Are you a primary healthcare business analyst to a significant other at home: No Do you presently have visiting nurse or other home services: No Alcohol intake: never Patient Tobacco Use Status: Former Tobacco user Tobacco use type: Cigarette Years Smoked: 40 e-Cigarette/Vaping Use: Currently Using Second Hand Smoke Exposure: No Advance Directives Date on File: 03/13/15 service: No Current occupational status: retired and other Current occupation: right handed Cognitive needs: No Hearing needs: No Vision needs: No Review of Systems Const All systems reviewed & are unremarkable except as noted in HPI and below Physical Exam Vital Signs: Last Vital Signs Pulse 67 04/20/24 10:32 BP 156/70 H 04/20/24 10:32 Pulse Ox 98 04/20/24 10:32 Oxygen Delivery Method Room Air 04/20/24 10:32 BMI result Body Mass Index 34.6 General: awake, alert, oriented. Answers questions appropriately. Fully engaged in examination. Skin: warm, dry, intact HEENT: Normocephalic. Hearing intact. Cardiac: External chest normal in appearance. Respiratory: No cough, audible wheezing or stridor. Abdomen: without gross distension. MS: No obvious swelling or deformities. Able to transition from sit to stand unassisted. Ambulates with bilaterally normal heel strike and toe off Right hip: Pain anteriorly with internal/external rotation. Nontender to palpation. Neurological: Oriented to person, place, time and situation. Thought process intact. Ambulates with the use of a cane Psychiatric: Appropriate mood and affect. Good judgment and insight. Assessment & Plan Assessment & Plan (1) Hip pain, right: Code(s): M25.551 - Pain in right hip Category: Medical (2) S/P total right hip arthroplasty: Code(s): Z96.641 - Presence of right artificial hip joint Category: Surgical Plan X-ray right hip ordered for evaluation Order placed for PT eval treat Diclofenac topical, apply to most painful area twice daily as needed. All questions and concerns were answered, patient agrees with plan. Follow up after PT, sooner if needed Orders: Orders PT Evaluation and Treatment Today M25.551 - Pain in right hip XR hip RT min 2V Today M25.551 - Pain in right hip Medications: New diclofenac sodium 3% apply to most painful area twice daily as needed for pain 1 appl topical BID 100 grams 0RF Coding Level of Care Code New Pt Level 4 (93027) Complex EM visit Add On G2211 Diagnoses Hip pain, right M25.551 S/P total right hip arthroplasty Z96.641
[2024-04-20 10:32] VITALS: BP 156/70; PULSE 67; O2SAT 98; BMI 34.6
== END 2024-04-20 11:00 | disposition home or self-care (01) ==
PROVIDERS: PCP Internal Medicine; Visit Provider Registered Nurse Emergency
DX: M25.551 Pain in right hip (principal); Z96.641 Presence of right artificial hip joint
CPT/HCPCS: 99204; G2211

== ENCOUNTER 2024-04-25 08:46 | Outpatient (AMB) | payer MEDICARE, MEDICAID, SELFPAY ==
[2024-04-25 08:48] VITALS: BP 148/86; BMI 35.2
--- NOTE | 2024-04-25 08:48 | A.OFFPC_ITS ---
Vital Signs 04/25/24 08:48 Height 5 ft Weight 180 lb 2 oz BMI 35.2 BP 148/86 H Blood Pressure Location Lt brachial Position Sitting Intake Visit Reasons: Issues with sleeping Allergies sucralfate [Carafate] Allergy (Intermediate, Verified 04/25/24 08:53) hives NSAIDS (Non-Steroidal Anti-Inflamma Adverse Reaction (Intermediate, Verified 04/25/24 08:53) cannot take due to gastric bypass history Medication List - Last Reconciled 04/25/24 by Kayla Smith MD [2 inch cloth tape As directed] [4x4 sterile gauze pads As directed] alendronate (Fosamax) 70 mg PO QWEEK 90 days aripiprazole 10 mg PO QAM ascorbic acid (vitamin C) 1,000 mg PO QAM bupropion HCl XL (Wellbutrin XL) 300 mg PO QAM bupropion HCl XL 150 mg PO QAM calcium bkj-[id number]-Zn-copper tapper-fortino 250 mg-40 mg- 125 unit-3.75mg (Calcium Citrate Plus) 1 tab PO QAM cholecalciferol (vitamin D3) 50 mcg PO QPM diclofenac sodium 3% 1 appl topical BID escitalopram oxalate (Lexapro) 20 mg PO QAM ferrous sulfate (Feosol) 325 mg PO QPM hydrochlorothiazide 25 mg PO QAM lorazepam 0.5 mg PO DAILY PRN multivitamin (Daily Multi-Vitamin tablet) 1 tab PO QPM naloxegol (Movantik) 25 mg PO QAM omeprazole 40 mg PO DAILY pantoprazole 40 mg PO QAM primidone 50 mg PO BEDTIME propranolol ER 60 mg PO BEDTIME prucalopride (Motegrity) 2 mg PO DAILY ropinirole 0.25 mg PO BEDTIME sennosides-docusate sodium 8.6-50 mg (Senexon-S) 2 tabs PO BEDTIME PRN Tobacco use date assessed: 04/25/24 Fall risk assessment: 1 Fall in past year Last assessed Fall Risk: 04/25/24 Dental Screening Dental Screen Date: 04/25/24 Did you have a dental visit in the last 12 months?: No Did you have a dental problem in the last 6 months where you did not have access to dental care?: No Was dental information given to patient?: No HPI Issues with sleeping HPI Details Chief Complaint Inadequate sleep with excessive daytime sleepiness. Assessment and Plan 78 year old female with a history of khalif mors presenting with sleep disturbances characterized by difficulty maintaining sleep, leading to excessive daytime sleepiness and episodes of unintentional sleep. She reports falling asleep abruptly during relaxing activities, notably while sitting at her computer. A sleep study conducted approximately one to two years ago ruled out sleep apnea, but raised concerns about decreased breath rates during sleep. Recent history includes significant weight loss attributed to participation in a weight management program. The patient has had several falls in the past six months, raising safety concerns. I am considering a possible diagnosis of circadian rhythm sleep disorder, though further evaluation to rule out narcolepsy or other sleep-related disorders is warranted. Current management includes a pending outpatient sleep study and referral to a sleep specialist. The patient also continues neurological follow-up for tremors. 1. Daytime Somnolence The patient experiences episodes of sleep during sedentary activities, which may represent sleep disorder-related symptoms or narcolepsy. An urgent sleep study is planned, and consultation with a sleep specialist has been initiated to assess for other possible causes. Despite current neurological care for tremors, the timing of a follow-up visit has been accelerated due to new symptomatology. 2. Insomnia The patient reports an ongoing pattern of disrupted sleep, characterized by early awakenings and inadequate total sleep duration. A follow-up sleep study is planned to evaluate sleep architecture and to rule out other sleep disorders. Referral to a sleep specialist is advised for further evaluation. Exploration of non-pharmacological interventions such as sleep hygiene measures may be beneficial. Diagnostic results - Home sleep study (performed 1?2 years ago): No significant apnea; noted decrease in breathing during sleep. Problem List - Insomnia - Daytime Somnolence - Tremors (under neurology management) - History of Weight Loss Health Maintenance - Discussion of weight management, inclu ding the patient's engagement in a structured program. - Sleep health education and the importa nce of sleep hygiene. [place] [facility] Seen regularly by a neurologist Dr Vasu Smith, for tremor management. Patient Instructions - Await contact from the sleep lab for jed odonnell. - Plan to see the neurologist sooner josep n scheduled due to new symptoms. - Continue with weight management and mo nitor for any new sleep-related issues. - Avoid activities that could result in harm if somnolence occurs; seek immediate help if falls or unexpected sleep episodes increase. [facility] Medical History Encounter for general adult medical examination with abnormal findings Hip pain, right Preoperative cardiovascular examination Change in bowel movement Traumatic seroma of right thigh Postprocedural seroma of skin and subcutaneous tissue following other procedure Open wound of right hip and thigh Peripheral vascular disease Right rib fracture Menopause Pain management Pain management contract agreement Open wound of right lower leg with complication Shortness of breath Cough Edema Influenza A H1N1 infection Hospital discharge follow-up Cellulitis of right leg Varicose veins of right lower extremity with inflammation Enterococcus faecalis infection Abscess Hip pain, right Obesity Lymphedema Morbid obesity due to excess calories Pre-op evaluation Colon cancer screening Medicare annual wellness visit, subsequent Family history of anesthesia complication Back pain Arthritis Renal calculi Post-influenza syndrome Tremor Peripheral vascular disease Right bundle branch block (RBBB) Aortic valve calcification Mitral annular calcification Nocturnal hypoxemia COPD (chronic obstructive pulmonary disease) Restrictive lung disease Stasis edema of both lower extremities Nail fungus Chronic GERD Depression, major, recurrent Hypertension, essential Surgical History History of excision of lesion (10/20/23) History of total hip arthroplasty S/P gastric bypass History of surgery on lower extremity (01/25/23) History of surgery H/O colonoscopy History of cataract extraction History of bilateral tubal ligation History of tonsillectomy Family History Father No problems noted. Mother Alzheimer's disease Maternal Grandmother Cancer Maternal Grandfather No problems noted. Paternal Grandfather No problems noted. Paternal Grandmother No problems noted. Maternal Aunt Cancer Sister Colon cancer Son No problems noted. Daughter No problems noted. Social History Household Members: Children Household Members Other:: daughter Housing: House Housing Other:: mobile home Are you a primary direct care professional to a significant other at home: No Do you presently have visiting nurse or other home services: No Alcohol intake: never Patient Tobacco Use Status: Former Tobacco user Tobacco use type: Cigarette Years Smoked: 40 e-Cigarette/Vaping Use: Currently Using Second Hand Smoke Exposure: No Advance Directives Date on File: 03/13/15 service: No Current occupational status: retired and other Current occupation: right handed Cognitive needs: No Hearing needs: No Vision needs: No Questionnaire Thrive Questionnaire Date Thrive assessed: 02/15/24 I am a: Patient What is your living situation today?: I have a steady place to live Within the past 12 months, did the food you bought not last and you didn't have the money to get more?: Never true Within the past 12 months, did you worry whether your food would run out before you got money to buy more?: Sometimes True Do you have trouble paying for medicines?: No Do you have trouble getting transportation to medical appointments?: No Do you have trouble paying your heating and electricity bill?: No Do you have trouble taking care of your child, family member or friend?: No Do you have trouble with day-to-day activities such as bathing, preparing meals, shopping, managing finances, etc.?: No Are you currently unemployed and looking for a job?: No Are you interested in more education?: No Please select the resources that you would like help with: None Currently or been in a relationship where the following occur: No concerns reported THRIVE Score: 1 GERMÁN-7 AMB Questionnaire GERMÁN-7 Date GERMÁN - 7 assessed: 02/22/24 Source: Developed by Drs. Francisco Mendoza, Edyta Moctezuma, Kam Mills and colleagues, with an educational desi from [employer]. Review of Systems Const Denies chills and Denies fever(s) ENT Denies epistaxis and Denies nasal discharge Card Denies chest pain Resp Denies chest congestion, Denies cough and Denies hemoptysis GI Denies diarrhea and Denies nausea Skin/Breast Denies rash Neuro Reports no additional complaints Psych Reports no additional complaints Endo Reports no additional complaints Physical exam (Primary Care) Vital Signs: Last Vital Signs BP 148/86 H 04/25/24 08:48 BMI result Body Mass Index 35.2 Tobacco/Smoking Status: Tobacco use Status Tobacco use date assessed 04/25/24 04/25/24 08:54 Patient Tobacco Use Status Former Tobacco user 04/25/24 08:51 Tobacco use type Cigarette 04/25/24 08:51 e-Cigarette/Vaping Use Currently Using 04/25/24 08:51 Thrive Assessment: Date of Thrive Assessment Date Thrive assessed 02/15/24 04/25/24 08:51 Currently or been in a relationship where the following occur: No concerns reported Const General: cooperative, comfortable and no acute distress Orientation/consciousness: patient oriented x3 HENMT Head: Yes normocephalic Eyes General: appearance normal, both eyes and all related structures Neck Neck: Yes supple Resp Effort & Inspection: normal respiratory effort, no cough and no stridor Cardio Heart sounds: S1 normal heart sound present and S2 normal heart sound present Skin General skin exam: turgor normal Neuro General: patient oriented x3, tone normal and moves all extremities Coding Level of Care Code Est Pt Level 4 (19991) Diagnoses Sleep disorder G47.9 Assessment & Plan Assessment & Plan (1) Sleep disorder: Code(s): G47.9 - Sleep disorder, unspecified Category: Medical Plan Chief Complaint Inadequate sleep with excessive daytime sleepiness. Assessment and Plan 78 year old female with a history of tremors presenting with sleep disturbances characterized by difficulty maintaining sleep, leading to excessive daytime sleepiness and episodes of unintentional sleep. She reports falling asleep abruptly during relaxing activities, notably while sitting at her computer. A sleep study conducted approximately one to two years ago ruled out sleep apnea, but raised concerns about decreased breath rates during sleep. Recent history includes significant weight loss attributed to participation in a weight management program. The patient has had several falls in the past six months, raising safety concerns. I am considering a possible diagnosis of circadian rhythm sleep disorder, though further evaluation to rule out narcolepsy or other sleep-related disorders is warranted. Current management includes a pending outpatient sleep study and referral to a sleep specialist. The patient also continues neurological follow-up for tremors. 1. Daytime Somnolence The patient experiences episodes of sleep during sedentary activities, which may represent sleep disorder-related symptoms or narcolepsy. An urgent sleep study is planned, and consultation with a sleep specialist has been initiated to assess for other possible causes. Despite current neurological care for tremors, the timing of a follow-up visit has been accelerated due to new symptomatology. 2. Insomnia The patient reports an ongoing pattern of disrupted sleep, characterized by early awakenings and inadequate total sleep duration. A follow-up sleep study is planned to evaluate sleep architecture and to rule out other sleep disorders. Referral to a sleep specialist is advised for further evaluation. Exploration of non-pharmacological interventions such as sleep hygiene measures may be beneficial. Diagnostic results - Home sleep study (performed 1?2 years ago): No significant apnea; noted decrease in breathing during sleep. Problem List - Insomnia - Daytime Somnolence - Tremors (under neurology management) - History of Weight Loss Health Maintenance - Discussion of weight management, including the patient's engagement in a structured program. - Sleep health education and the importance of sleep hygiene. [place] [facility] Seen regularly by a neurologist Dr Vasu Smith, for tremor management. Patient Instructions - Await contact from the sleep lab for scheduling. - Plan to see the neurologist sooner than scheduled due to new symptoms. - Continue with weight management and monitor for any new sleep-related issues. - Avoid activities that could result in harm if somnolence occurs; seek immediate help if falls or unexpected sleep episodes increase. Orders: Orders RT home sleep study Today G47.9 - Sleep disorder, unspecified Referrals Neurology Referral G47.9 - Sleep disorder, unspecified
== END 2024-04-25 09:37 | disposition home or self-care (01) ==
PROVIDERS: PCP Internal Medicine; Visit Provider Internal Medicine
DX: G47.9 Sleep disorder, unspecified (principal)

== ENCOUNTER → 2024-04-25 08:46 | Outpatient (BNVA) | payer MEDICARE, MEDICAID, SELFPAY | PROVIDERS: PCP Internal Medicine; Visit Provider Internal Medicine | DX: G47.9 Sleep disorder, unspecified (principal) | CPT/HCPCS: 99212 ==

== ENCOUNTER 2024-04-28 10:41 | Outpatient (AMB) | payer MEDICARE, MEDICAID, SELFPAY ==
--- NOTE | 2024-04-28 10:46 | A.OFFVIS_ITS ---
Vital Signs 04/28/24 10:47 Height 5 ft Weight 178 lb 9.191 oz BMI 34.9 BP 139/64 Blood Pressure Location Rt brachial Position Sitting Pulse 83 Intake Visit Reasons: S/P EGD Intake Note: Patient in office today in follow up s/p EGD. CC: Patient c/o constipation and abdominal bloating. Denies other GI symptoms. Manager Floor Required: No Accompanied by: Self / Same As Patient Allergies sucralfate [Carafate] Allergy (Intermediate, Verified 04/28/24 10:57) hives NSAIDS (Non-Steroidal Anti-Inflamma Adverse Reaction (Intermediate, Verified 04/28/24 10:57) cannot take due to gastric bypass history HPI HPI S/P EGD: Details: Assessment & Plan (1) Constipation: Code(s): K59.00 - Constipation, unspecified Category: Medical (2) Oropharyngeal dysphagia: Code(s): R13.12 - Dysphagia, oropharyngeal phase Category: Medical (3) Chronic GERD: Code(s): K21.9 - Gastro-esophageal reflux disease without esophagitis Category: Medical Plan She finds she is having some more trouble swallowing things tend to get hung up right above the sternal notch which correlates well with the question of cricopharyngeal achalasia on the barium swallow. I think were going to get an endoscopy because there also was a question some thickening at the GE junction. She does not have any problems with subjective heartburn, but it is possible she has a stricture that needs dilation. It is also possible that this is a variant of presbyesophagus which would be more difficult to treat. We reviewed safe swallowing precautions which she generally follows because she does not have any teeth. She finds the Motegrity 2 mg has made her stooling ?almost normal. ? this is the best result we have had so far so she is happy with continuing this treatment. She also occasionally uses her senna which is acceptable. She continues on her pantoprazole 40 mg once a day. Return office visit in 6 months and of course I will see her after the endoscopy. Orders: Orders EGD with Couch - GI Use Only Today R13.12 - Dysphagia, oropharyngeal phase Medications: New pantoprazole 40 mg PO QAM 30 tabs 6RF K21.9 - Gastro-esophageal reflux disease without esophagitis Refilled prucalopride (Motegrity) 2 mg PO DAILY 30 tabs 6RF K59.00 - Constipation, unspecified sennosides-docusate sodium 8.6-50 mg (Senexon-S) 2 tabs PO BEDTIME PRN 180 tabs 0RF constipation CORRESPONDENCE On 04/13/24 @ 11:50 Jodie Brown Wrote To StephanieAugust (2) I am sending a medicine called [employer] for her to use along with her Motegrity until I can see her please advise the patient On 04/13/24 @ 07:55 Quyen Whitt Wrote To Stephanie Patient had appt that we needed to reschedule today - she wanted me to let you know that she is back to having constipation and her motegrity has stopped working 3 weeks ago. She has procedure and follow up 04/28 EGD 04/14/24 Findings: Larynx:normal Esophagus: GE junction at 35 cm, diaphragm hiatus at 37 cm, consistent with 2 cm sliding hiatal hernia, with mild esophagitis, bx taken from GEJ, distal and proximal areas, balloon dilaiton to 18 mm at UES and LES-no tears seen -shcatzki ring noted Stomach pouch: normal . Grade 2 flap valve on retroflexed examination of the cardia. retained sutures noted x 5 removed with cold forceps Jejunum: Normal mpression/Findings: hiatal hernia schatzki ring esophagitis retained sutures PLAN: change to omeprazole capsules, open capsule and mix granules with apple sauce and take GERD precautions BIOPSY Received: 04/14/24 ADDENDUM REPORT Addendum Addendum #1 Additional level with AB/PAS on A is negative for intestinal metaplasia. Control stains appropriately. Electronically Signed By: Zamzam Rivera 04/19/24 0324 Diagnosis A. Gastroesophageal junction, biopsy: Squamous mucosa with reactive changes, spongiosis and few intraepithelial eosinophils (up to 3 per high-power field) and columnar mucosa with mild inflammation, consistent with esophagitis; no intestinal metaplasia seen on initial levels; negative for dysplasia. B. Esophagus, distal, biopsy: Squamous mucosa with no specific change; no columnar mucosa present. C. Esophagus, proximal, biopsy: Squamous mucosa with no specific change; no columnar mucosa present. Comment: (A): Additional level with AB/PAS stain pending; addendum to follow TODAY'S VISIT SHE TOLERATED THE PROCEDURE WELL and the upper dilation at least mildly improved her swallowing. Because of the esophagitis, although there was no dysplasia or metaplasia Has son has her opening capsules of omeprazole instead of taking pantoprazole. She did not have any trouble swallowing the pantoprazole but there was some thought that maybe her gastric bypass is interfering with absorption of the PPI. This is of course is fine. She continues to struggle with constipation. Her stools are mostly formed but she does have trouble evacuating when they are soft. This is why we went to Motegrity as I did not want to give her diarrhea. Ordinarily she utilizes senna with this but I think we need to progress to something stronger and I will try putting her on Dulcolax and will titrate this to affect her side effect. It is also possible that we should move on to something like Linzess, Amitiza, or Ibsrela. She did not have any response with Motegrity. Return office visit 8 weeks. [facility] Medical History (Updated 04/28/24 @ 11:17 by DELORES Pérez) Wound, open, hip or thigh with complication Encounter for general adult medical examination with abnormal findings Hip pain, right Preoperative cardiovascular examination Change in bowel movement Traumatic seroma of right thigh Postprocedural seroma of skin and subcutaneous tissue following other procedure Open wound of right hip and thigh Peripheral vascular disease Right rib fracture Menopause Pain management Pain management contract agreement Open wound of right lower leg with complication Shortness of breath Cough Edema Influenza A H1N1 infection Hospital discharge follow-up Cellulitis of right leg Varicose veins of right lower extremity with inflammation Enterococcus faecalis infection Abscess Hip pain, right Obesity Lymphedema Morbid obesity due to excess calories Pre-op evaluation Colon cancer screening Medicare annual wellness visit, subsequent Family history of anesthesia complication Back pain Arthritis Renal calculi Post-influenza syndrome Tremor Peripheral vascular disease Right bundle branch block (RBBB) Aortic valve calcification Mitral annular calcification Nocturnal hypoxemia COPD (chronic obstructive pulmonary disease) Restrictive lung disease Stasis edema of both lower extremities Nail fungus Chronic GERD Depression, major, recurrent Hypertension, essential Surgical History History of excision of lesion (10/20/23) History of total hip arthroplasty S/P gastric bypass History of surgery on lower extremity (01/25/23) History of surgery H/O colonoscopy History of cataract extraction History of bilateral tubal ligation History of tonsillectomy Family History Father No problems noted. Mother Alzheimer's disease Maternal Grandmother Cancer Maternal Grandfather No problems noted. Paternal Grandfather No problems noted. Paternal Grandmother No problems noted. Maternal Aunt Cancer Sister Colon cancer Son No problems noted. Daughter No problems noted. Social History Household Members: Children Household Members Other:: daughter Housing: House Housing Other:: mobile home Are you a primary assistant child care teacher to a significant other at home: No Do you presently have visiting nurse or other home services: No Alcohol intake: never Patient Tobacco Use Status: Former Tobacco user Tobacco use type: Cigarette Years Smoked: 40 e-Cigarette/Vaping Use: Currently Using Second Hand Smoke Exposure: No Advance Directives Date on File: 03/13/15 service: No Current occupational status: retired and other Current occupation: right handed Cognitive needs: No Hearing needs: No Vision needs: No Review of Systems Const Denies fatigue, Denies fever(s), Denies night sweats, Denies poor appetite and Denies weight loss ENT Reports Normal hearing present, Denies dental pain, Reports dysphagia, Denies hearing loss, Denies mouth pain, Denies odynophagia, Denies throat swelling, Denies tongue swelling and Reports other (Dentition adequate) Card Reports no additional complaints Resp Reports no additional complaints GI Details: Denies abdominal pain, Denies melena, Reports bloating, Denies hematochezia, Reports constipation, Denies GI cramping, Reports dysphagia, Denies excessive flatus, Denies early satiety, Reports heartburn, Denies diarrhea, Denies nausea, Denies odynophagia, Denies vomiting and Denies hematemesis Musc Reports abnormal gait, Reports back pain, Reports deformity and Reports arthralgias Skin/Breast Denies pruritus, Denies lesions, Denies rash and Denies jaundice Neuro Reports Normal hearing present, Denies Abnormal speech present and Reports abnormal gait Endo Denies fatigue Aller/Immun Denies throat swelling and Denies tongue swelling Physical Exam Vital Signs: Last Vital Signs Pulse 83 04/28/24 10:47 BP 139/64 04/28/24 10:47 BMI result Body Mass Index 34.9 Const General: cooperative, no acute distress, well developed and well groomed Nutritional Appearance: well nourished and obese Orientation/consciousness: oriented to person, oriented to place and oriented to time Limitations: No language barrier HEENT Head: Yes normocephalic and Yes atraumatic Eyes General: appearance normal, both eyes and all related structures Pupils: Equal, round and reactive pupils present Neck Neck: Yes normal visual inspection and Yes no lymphadenopathy Thyroid: Thyroid normal Resp Effort & Inspection: normal respiratory effort and able to speak in complete sentences Auscultation: clear to auscultation bilaterally Cardio Rate: regular rate Rhythm: regular rhythm Heart sounds: Normal, physiologic split S2 sound present Peripheral pulses: radial pulses present and posterior tibial pulses present GI Inspection: No distended, Yes Abdominal panniculus present and Yes obesity Palpation (GI): Soft to palpation, nontender, no guarding, not rigid and No hepatosplenomegaly present Percussion: Yes normal to percussion Auscultation: normal bowel sounds Rectal Exam - Female: deferred Skin General skin exam: no rashes or lesions noted, turgor normal, skin not dry, no jaundice, No spider nevi and no striae Rashes: no rashes Nails: normal Neuro General: oriented to person, oriented to place and oriented to time Cranial nerves: Yes Equal, round and reactive pupils present and Yes Normal hearing present Speech: No Abnormal speech present Extrem General: Yes normal to inspection, No clubbing, No cyanosis and No edema Psych Appearance: grossly normal and well kempt Mental Status: mental status grossly normal Speech and movement: Normal speech and movement present Affect: normal affect Attitude: cooperative Thought process: Normal thought process present and not confabulating Thought content: Normal thought content present Insight: Fair insight present (Psych) Judgement: Fair judgement present (Psych) Results Reviewed Results Reviewed: EGD 04/14/24 Findings: Larynx:normal Esophagus: GE junction at 35 cm, diaphragm hiatus at 37 cm, consistent with 2 cm sliding hiatal hernia, with mild esophagitis, bx taken from GEJ, distal and proximal areas, balloon dilaiton to 18 mm at UES and LES-no tears seen -shcatzki ring noted Stomach pouch: normal . Grade 2 flap valve on retroflexed examination of the cardia. retained sutures noted x 5 removed with cold forceps Jejunum: Normal mpression/Findings: hiatal hernia schatzki ring esophagitis retained sutures PLAN: change to omeprazole capsules, open capsule and mix granules with apple sauce and take GERD precautions BIOPSY Received: 04/14/24 ADDENDUM REPORT Addendum Addendum #1 Additional level with AB/PAS on A is negative for intestinal metaplasia. Control stains appropriately. Electronically Signed By: Zamzam Rivera 04/19/24 3386 Diagnosis A. Gastroesophageal junction, biopsy: Squamous mucosa with reactive changes, spongiosis and few intraepithelial eosinophils (up to 3 per high-power field) and columnar mucosa w ith mild inflammation, consistent with esophagitis; no intestinal metaplasia seen on initial levels; negative for dysplasia. B. Esophagus, distal, biopsy: Squamous mucosa with no specific change; no c olumnar mucosa present. C. Esophagus, proximal, biopsy: Squamous mucosa with no specific change; no columnar mucosa present. Comment: (A): Additional level with AB/PAS stain pending; addendum to follow Assessment & Plan Assessment & Plan (1) Constipation: Code(s): K59.00 - Constipation, unspecified Category: Medical Qualifiers: Constipation type: slow transit constipation Qualified Code(s): K59.01 - Slow transit constipation (2) Oropharyngeal dysphagia: Code(s): R13.12 - Dysphagia, oropharyngeal phase Category: Medical (3) GERD with esophagitis: Code(s): K21.00 - Gastro-esophageal reflux disease with esophagitis, without bleeding Category: Medical Plan SHE TOLERATED THE PROCEDURE WELL and the upper dilation at least mildly improved her swallowing. Because of the esophagitis, although there was no dysplasia or metaplasia Has son has her opening capsules of omeprazole instead of taking pantoprazole. She did not have any trouble swallowing the pantoprazole but there was some thought that maybe her gastric bypass is interfering with absorption of the PPI. This is of course is fine. She continues to struggle with constipation. Her stools are mostly formed but she does have trouble evacuating when they are soft. This is why we went to Motegrity as I did not want to give her diarrhea. Ordinarily she utilizes senna with this but I think we need to progress to something stronger and I will try putting her on Dulcolax and will titrate this to affect her side effect. It is also possible that we should move on to something like Linzess, Amitiza, or Ibsrela. She did not have any response with Motegrity. Return office visit 8 weeks. Medications: New bisacodyl (Dulcolax (bisacodyl)) 10 mg (2 x 5 mg) PO BEDTIME 180 tabs 0RF 90 days Refilled omeprazole open capsule and mix granules with apple sauce 40 mg PO DAILY 90 caps 1RF sennosides-docusate sodium 8.6-50 mg (Senexon-S) 2 tabs PO BEDTIME PRN 180 tabs 0RF constipation Discontinued pantoprazole Discontinued Reason: Doctor's Order 40 mg PO QAM 30 tabs 6RF K21.9 - Gastro-esophageal reflux disease without esophagitis naloxegol (Movantik) must be taken on empty stomach; no food 1 hr after or 2-3 hrs before dose Discontinued Reason: Doctor's Order 25 mg PO QAM 30 tabs 0RF Coding Level of Care Code Est Pt Level 3 (67731) Diagnoses Slow transit constipation K59.01 Constipation type: slow transit constipation Oropharyngeal dysphagia R13.12 GERD with esophagitis K21.00
[2024-04-28 10:47] VITALS: BP 139/64; PULSE 83; BMI 34.9
== END 2024-04-28 11:24 | disposition home or self-care (01) ==
PROVIDERS: PCP Internal Medicine; Visit Provider Nurse Practitioner
DX: K59.01 Slow transit constipation (principal); R13.12 Dysphagia, oropharyngeal phase; K21.00 Gastro-esophageal reflux disease with esophagitis, without bleeding
CPT/HCPCS: 99213

== ENCOUNTER → 2024-04-28 10:41 | Outpatient (BNVA) | payer MEDICARE, MEDICAID, SELFPAY | PROVIDERS: PCP Internal Medicine; Visit Provider Nurse Practitioner | DX: K59.01 Slow transit constipation (principal); K21.00 Gastro-esophageal reflux disease with esophagitis, without bleeding; R13.12 Dysphagia, oropharyngeal phase | CPT/HCPCS: 99212 ==

== ENCOUNTER → 2024-05-01 12:50 | Outpatient (REF) | payer MEDICARE, MEDICAID, SELFPAY | LOC: HO.SL 12:50 | PROVIDERS: PCP Internal Medicine; Visit Provider Internal Medicine | DX: G47.9 Sleep disorder, unspecified (principal); G47.10 Hypersomnia, unspecified; R40.0 Somnolence | CPT/HCPCS: 95806 ==

== ENCOUNTER → 2024-05-01 13:01 | Outpatient (BNV) | payer MEDICARE, MEDICAID, SELFPAY | PROVIDERS: PCP Internal Medicine; Visit Provider Internal Medicine | DX: G47.33 Obstructive sleep apnea (adult) (pediatric) (principal) | CPT/HCPCS: 95806 ==

== ENCOUNTER 2024-05-11 12:49 | Outpatient (REF) | payer MEDICARE, MEDICAID, SELFPAY ==
--- NOTE | ~2024-05-11 | MM_ITS ---
EXAMINATION: MM DIAGNOSTIC DIGITAL BREAST TOMOSYNTHESIS, RIGHT Limited right breast ultrasound. CLINICAL INFORMATION: Call back from screening for grouped calcifications in the upper outer right breast and developing focal asymmetry in the lower inner right breast. COMPARISON: Mammography: Prior available examinations. TECHNIQUE: Digital breast tomosynthesis is performed in both the craniocaudal and mediolateral oblique views along with computer-aided detection (CAD). Synthesized 2D images are generated from the tomosynthesis. Limited right breast ultrasound. FINDINGS: There are scattered areas of fibroglandular density (ACR BI-RADS breast composition Category b). There are grouped coarse heterogeneous calcifications in the upper outer quadrant are increased from prior. There is a circumscribed oval mass in the lower inner breast increased from prior's. No suspicious other abnormal findings. Limited right breast ultrasound: Targeted color Doppler ultrasound scanning in the medial right breast from 1-5 o'clock demonstrates a heterogeneous hyperechoic oval solid mass at 3:00 7 cm from the nipple measuring 8 x 5 x 8 mm which is a questionable correlate for the focal asymmetry on mammography. MM/MM tomosynthesis added views R IMPRESSION: Right: 1. Grouped developing calcifications in the upper outer breast. Recommend stereotactic core needle biopsy at this time for confirmation. 2. Oval mass in the lower inner right breast anterior to middle depth increased from prior's. Recommend stereotactic core needle biopsy at this time for confirmation. 3. Hyperechoic mass at 3:00 7 cm from the nipple which is a questionable correlate for the focal asymmetry on mammography. Stereotactic biopsy of the focal asymmetry on mammography is recommended and will be performed. Pending pathology 6 month follow-up of this area is recommended for further evaluation. If the clip is within this area on follow-up then no further follow-up be indicated. ASSESSMENT: BI-RADS BI-RADS 4 - Suspicious finding RECOMMENDATION: Biopsy recommended Results were discussed with the patient at time of visit. This patient's information was entered into a reminder system with a target due date for their next mammogram. Electronically signed by: Diane Pillai DO 05/11/2024 02:25 PM [facility]
== END 2024-05-11 12:50 | disposition home or self-care (01) ==
LOC: HO.MAMMO 12:49
PROVIDERS: PCP Internal Medicine; Visit Provider Internal Medicine
DX: R92.321 Mammographic fibroglandular density, right breast (principal); R92.331 Mammographic heterogeneous density, right breast; N64.89 Other specified disorders of breast; N63.11 Unspecified lump in the right breast, upper outer quadrant
CPT/HCPCS: 76642; 77061; 77065

== ENCOUNTER → 2024-05-11 13:30 | Outpatient (BNV) | payer MEDICARE, MEDICAID, SELFPAY | PROVIDERS: PCP Internal Medicine; Visit Provider Internal Medicine | DX: R92.1 Mammographic calcification found on diagnostic imaging of breast (principal) | CPT/HCPCS: 76642; 77065; G0279 ==

== ENCOUNTER 2024-05-30 12:54 | Outpatient (AMB) | payer MEDICARE, MEDICAID, SELFPAY ==
--- NOTE | 2024-05-30 13:06 | MHC.OFFVIS ---
Vital Signs 05/30/24 13:13 Height 5 ft Weight 180 lb 12.465 oz BMI 35.3 Respiration 16 Pulse 82 Intake Visit Reasons: Stereo biopsy rt brst 3:00 density, 10:00 calcifi Intake Note: Patient is seen in office for stereo biopsy consult following right breast 3 o'clock density, 10 o'clock calcifications. Pt c/o: does not have any concerns regarding the breast, has bx sched for , had bx for left breast in the past (Dx calcifications). 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 Required: No Photographic Process Worker: Photographic Process Worker Present Accompanied by: Self / Same As Patient Allergies sucralfate [Carafate] Allergy (Intermediate, Verified 05/30/24 13:12) hives NSAIDS (Non-Steroidal Anti-Inflamma Adverse Reaction (Intermediate, Verified 05/30/24 13:12) cannot take due to gastric bypass history HPI Comments Details: 78-year-old female patient well known to me with a prior history of an infected right hip now presenting for evaluation of a recent screening ultrasound performed on 04/04/2024 with follow-up images on 05/11/2024 and ultrasound also performed on 05/11/2024. This revealed a evolving cluster of calcifications in the right 10 o'clock position as well as a new density located in the 3 o'clock position felt to be suspicious for malignancy. She is scheduled for a stereotactic guided core biopsy x2 of the right breast. She reports a previous stereotactic guided core biopsy performed on the left side for calcifications which was benign. She denies a family history of breast or ovarian cancer. Menarche was the age of 13. She is 2 para 2 (a 3rd child is adopted). Her 1st child was born when she was 21. Her last menstrual period was at the age of 51. She denied using hormone replacement. She denies previous genetic testing. She denies Ashkenazi Muslim heritage. Tyrer-Cuzick remaining lifetime risk of breast cancer is 1.8%. [facility] Medical History Wound, open, hip or thigh with complication Encounter for general adult medical examination with abnormal findings Hip pain, right Preoperative cardiovascular examination Change in bowel movement Traumatic seroma of right thigh Postprocedural seroma of skin and subcutaneous tissue following other procedure Open wound of right hip and thigh Peripheral vascular disease Right rib fracture Menopause Pain management Pain management contract agreement Open wound of right lower leg with complication Shortness of breath Cough Edema Influenza A H1N1 infection Hospital discharge follow-up Cellulitis of right leg Varicose veins of right lower extremity with inflammation Enterococcus faecalis infection Abscess Hip pain, right Obesity Lymphedema Morbid obesity due to excess calories Pre-op evaluation Colon cancer screening Medicare annual wellness visit, subsequent Family history of anesthesia complication Back pain Arthritis Renal calculi Post-influenza syndrome Tremor Peripheral vascular disease Right bundle branch block (RBBB) Aortic valve calcification Mitral annular calcification Nocturnal hypoxemia COPD (chronic obstructive pulmonary disease) Restrictive lung disease Stasis edema of both lower extremities Nail fungus Chronic GERD Depression, major, recurrent Hypertension, essential Surgical History History of excision of lesion (10/20/23) History of total hip arthroplasty S/P gastric bypass History of surgery on lower extremity (01/25/23) History of surgery H/O colonoscopy History of cataract extraction History of bilateral tubal ligation History of tonsillectomy Family History Father No problems noted. Mother Alzheimer's disease Maternal Grandmother Cancer Maternal Grandfather No problems noted. Paternal Grandfather No problems noted. Paternal Grandmother No problems noted. Maternal Aunt Cancer Sister Colon cancer Son No problems noted. Daughter No problems noted. Social History Household Members: Children Household Members Other:: daughter Housing: House Housing Other:: mobile home Are you a primary wound care coordinator to a significant other at home: No Do you presently have visiting nurse or other home services: No Alcohol intake: never Patient Tobacco Use Status: Former Tobacco user Tobacco use type: Cigarette Years Smoked: 40 e-Cigarette/Vaping Use: Currently Using Second Hand Smoke Exposure: No Advance Directives Date on File: 03/13/15 service: No Current occupational status: retired and other Current occupation: right handed Cognitive needs: No Hearing needs: No Vision needs: No Female Reproductive History Menstrual Age of Menarche: 13 Age of menopause: 51 Total pregnancies: 2 Number of Living Children: 2 Review of Systems Const All systems reviewed & are unremarkable except as noted in HPI and below Physical Exam Vital Signs: Last Vital Signs Pulse 82 05/30/24 13:13 Resp 16 05/30/24 13:13 BMI result Body Mass Index 35.3 Const General: no acute distress Nutritional Appearance: well nourished Orientation/consciousness: patient oriented x3 Limitations: no limitations HEENT Head: Yes normocephalic and Yes atraumatic Chest Other: Left breast: No skin change, no nipple retraction, no nipple discharge, no palpable mass, no enlarged lymph nodes. Right breast: No skin change, no nipple retraction, no nipple discharge, no palpable mass, no enlarged lymph nodes Resp Effort & Inspection: normal respiratory effort, no audible wheezes, no cough and no respiratory distress GI Inspection: Yes normal to inspection Skin Other: Warm, dry, no rashes Neuro Other: Mobility Assessment: 1. 3 meter assessment time (seconds) 7 2. Gait observations: slow tentative pace General: patient oriented x3 Extrem General: Yes no clubbing, cyanosis or edema Assessment & Plan Assessment & Plan (1) Abnormal mammogram of right breast: Code(s): R92.8 - Other abnormal and inconclusive findings on diagnostic imaging of breast Category: Medical Plan 78-year-old female patient presenting with a recent mammogram and ultrasound which revealed 2 areas of concern including density in the 3 o'clock position and calcifications in the 10 o'clock position both of which stereotactic guided core biopsy is recommended. Previous biopsy of the left breast was benign for calcifications. Examination today revealed no suspicious findings in either breast. She was scheduled for the stereotactic guided core biopsy at the [facility] on 06/01/2024. I recommended a follow-up examination next week to review the results and discuss treatment options. She expressed understanding and agrees with the plan. Coding Level of Care Code New Pt Level 4 (35922) Diagnoses Abnormal mammogram of right breast R92.8
[2024-05-30 13:13] VITALS: PULSE 82; RESP 16; BMI 35.3
== END 2024-05-30 13:35 | disposition home or self-care (01) ==
PROVIDERS: PCP Internal Medicine; Visit Provider Surgery
DX: R92.8 Other abnormal and inconclusive findings on diagnostic imaging of breast (principal)
CPT/HCPCS: 99214

== ENCOUNTER → 2024-05-30 12:54 | Outpatient (BNVA) | payer MEDICARE, MEDICAID, SELFPAY | PROVIDERS: PCP Internal Medicine; Visit Provider Surgery | DX: R92.1 Mammographic calcification found on diagnostic imaging of breast (principal); R92.8 Other abnormal and inconclusive findings on diagnostic imaging of breast | CPT/HCPCS: 99212 ==

== ENCOUNTER 2024-06-01 07:46 | Outpatient (REF) | payer MEDICARE, MEDICAID, SELFPAY ==
--- NOTE | ~2024-06-01 | MM_ITS ---
EXAMINATION: STEREOTACTICALLY-GUIDED RIGHT BREAST BIOPSY CLINICAL INFORMATION: Suspicious right breast calcifications and right focal asymmetry. COMPARISON: Comparison is made with available prior examinations. INFORMED CONSENT: After the details of the procedure, as well as the risks (including, but not limited to, bleeding, hematoma formation, and infection), benefits and alternatives (including doing nothing, short-interval follow up, and surgery) to the procedure were explained to the patient in detail and all of her questions were answered, informed written consent was obtained. TECHNIQUE/FINDINGS: A timeout was performed Site 1: Grouped calcifications upper central breast. The calcifications intended for biopsy was identified stereotactically and targeted. The skin of the right breast was then cleansed with sterile solution. Using stereotactic guidance, aseptic technique, and 1% lidocaine with and without epinephrine for local anesthesia, a total of 14 cores were obtained through the targeted area with a 9-gauge vacuum-assisted Eviva core biopsy device from a superior approach. Specimen radiography reveals the targeted calcifications in the sampled tissue. At the completion of tissue sampling, a single mini cork:-shaped metallic clip was deposited at the biopsy site. Site 2: Focal asymmetry . The focal asymmetry central inner breast intended for biopsy was identified stereotactically and targeted. The skin of the right breast was then cleansed with sterile solution. Using stereotactic guidance, aseptic technique, and 1% lidocaine with and without epinephrine for local anesthesia, a total of 14 cores were obtained through the targeted area with a 9-gauge vacuum-assisted Eviva core biopsy device from a inferior approach. At the completion of tissue sampling, a single top hat-shaped metallic clip was deposited at the biopsy site. Adequate sampling was achieved. The postprocedure 2-view direct hilary synthesis mammogram reveals satisfactory positioning of the biopsy clip. 2-D images were not performed the patient left therefore it is difficult to determine clips and placement. 6 month follow-up recommended as clip placement does not correlate with the focal asymmetry in the lower inner right breast. The patient tolerated the procedure well and, after assuring adequate hemostasis, was discharged in good condition after reviewing postbiopsy breast care instructions. Final pathology results are pending. MM/MM stereotactic biopsy ea add IMPRESSION: 1. Uncomplicated stereotactically-guided core biopsy of the right breast at 2 sites. The 2-view direct digital postprocedure mammogram reveals satisfactory positioning of the marker clip for the calcifications in the upper outer breast however the clip for the focal asymmetry in the lower inner right breast does not correlate therefore follow-up 2D right breast mammogram is recommended for further evaluation which should be performed within 3 months. 2. Final pathology results are pending. A separate report with final recommendations will be issued once these results are made available. Electronically signed by: Diane Pillai DO 06/02/2024 12:28 PM EWA
[2024-06-01] MEDS: Sodium Bicarbonate 8.4% 50 MEQ/50 ML VIAL 6 MEQ SUBCUT (13:15)
[2024-06-01] MEDS: Lidocaine HCl 1 % 20 ML VIAL 8 ML SUBCUT (13:17)
[2024-06-01] MEDS: Lidocaine HCl 1%/Epi 1:100,000 10 ML VIAL 22 ML SUBCUT (13:18)
== END 2024-06-01 07:47 | disposition home or self-care (01) ==
LOC: HO.MAMMO 07:46
PROVIDERS: PCP Internal Medicine; Visit Provider Surgery
DX: R92.8 Other abnormal and inconclusive findings on diagnostic imaging of breast (principal)
CPT/HCPCS: 19081; 19082; 88305; A4648; J2003; J2004

== ENCOUNTER → 2024-06-01 08:00 | Outpatient (BNV) | payer MEDICARE, MEDICAID, SELFPAY | PROVIDERS: PCP Internal Medicine; Visit Provider Internal Medicine | DX: R92.8 Other abnormal and inconclusive findings on diagnostic imaging of breast (principal) | CPT/HCPCS: 19081; 19082 ==

== ENCOUNTER 2024-06-02 06:00 | Outpatient (RCR) | payer MEDICARE, MEDICAID, SELFPAY ==
--- NOTE | 2024-05-02 07:56 | MHC.PT.EP ---
[facility] [place] [facility] [place] Office [place] Office [address] Iwona Kirk [address] [phone] F: [phone] F: [phone] F: [phone] F: [phone] Physical Therapy Plan of Care Date of Evaluation: 05/02/24 Date of Surgery: 10 years ago Diagnosis: This is a 78 yo female presenting to skilled PT with a script for pain in R hip. Assessment: This is a 78 yo female presenting to skilled PT with a script for pain in R hip. Patient reporting a R THR about [address] Roldan. She reports that a week after the surgery she stepped up onto her 4 inch step and twisted her limb and then had increased pain that resolved afterwards. However, after a few days it was harder and harder for her to walk and she ended up with a fracture in the hip and had to have a new surgery to increase the length of the lever arm of the implant. She also does endorse a wound vac at the incision as well and then a secondary infection another time but no wound vac needed for a second round. She has since been back to see ortho but is now being followed by pain management (ordered updated x-ray and PT). The patient states that when ortho saw her he thought there was increased bony growth over the implant and she might need to be referred to an ortho in [place]. All in all since her original hip replacement, the hip has bothered her on and off. Today is is achy like a tooth ache and located at anterior aspect of the hip. Pain increases with lifting her leg for ADLs, walking and transfers. She reports decreased balance. Assessment reveals pain that ranges from up to a 4-10/10 at the worst. Patient demos decreased R hip ROM, strength of R LE, core and back, TTP at lateral and anterior hip joint, decreased gait pattern and impaired balance as well as impaired posture with forward flexed trunk, lateral trunk sway, very forward head and rounded shoulders. Based on functional limitations, impaired QOL and pain tolerance patient is a good candidate for skilled PT 2x/wk for 5wks. Frequency and Duration: The patient will be seen 2x/wk for 5 wks Short Term Goals: Pt will demonstrate improved postural awareness and understanding of core engagement, quad set and glut set with supine and standing tasks without cues throughout session to improve overall back safety in 2 weeks. Pt will continue to reinforce precautions, sitting, standing and ADL modifications with proper body mechanics in 2 wks. Penitentiary Goals: Pt will demonstrate improved outcome measure by 5 points in 4 weeks for improved functional mobility. Pt will demonstrate ability to bend and lift WNL min to no pain for household tasks in 5 wks. Pt will be I in HEP and compliant in 5wks Pt will report 75% in pain as noted with improvement in transfers in/out of the car in 5 wks Pt will be able to perform stairs with normal reciprocal gait in 5 wks Treatment Plan: Modalities to reduce pain, spasms and effusion. Manual therapy to restore motion and function. Therapeutic exercise to improve strength and flexibility. Neuromuscular re-education for posture and balance. Therapeutic activities to return to functional activities of daily living. Electronically signed by: Michelle Armstrong PT Please sign and return to therapist. Thank you for your referral.
--- NOTE | 2024-06-30 07:50 | MHC.PT.DC ---
[facility] [place] [facility] [place] [facility] [address] [phone] F: [phone] F: [phone] F: [phone] F: [phone] Physical Therapy Discharge Report Diagnosis: This is a 78 yo female presenting to skilled PT with a script for pain in R hip. Date of Surgery: 10 years ago Date of Evaluation: 05/02/24 Date of Discharge: 06/30/24 Treatments to Date: 9 Cancellations to Date: 0 No Shows to Date: 0 Discharge Status: Independent with HEP Patient Elected to Stop Recommend MD Follow-up Discharge Summary: 06/02: Patient has come to 9 visits on PT. She has improved her strength however reports ongoing pain and symptoms that limit her functionally and throughout her day. She would benefit from continued HEP on her own but also following up with referring MD for further assessment on pain relief options. DC to HEP. Electronically signed by: Michelle Armstrong PT Please sign and return to therapist. Thank you for your referral.
== END 2024-06-30 07:50 | disposition home or self-care (01) ==
LOC: HO.PTCHIC 06:00
PROVIDERS: PCP Internal Medicine; Visit Provider Registered Nurse Emergency
DX: M25.561 Pain in right knee (principal)
CPT/HCPCS: 97110; 97162

== ENCOUNTER 2024-06-06 13:42 | Outpatient (AMB) | payer MEDICARE, MEDICAID, SELFPAY ==
[2024-06-06 14:01] VITALS: BP 132/72; PULSE 70; O2SAT 96; BMI 35.3
--- NOTE | 2024-06-06 14:01 | MHC.OFFVIS ---
Vital Signs 06/06/24 14:01 Height 5 ft Weight 180 lb 12.465 oz BMI 35.3 BP 132/72 Blood Pressure Location Lt brachial Position Sitting Pulse 70 Pulse Source Pulse Oximeter Pulse Oximetry (%) 96 Oxygen Delivery Method Room Air Intake Visit Reasons: Nocturnal Hypoxemia Intake Note: pt is here for follow up sleep study done in April, she states she does not sleep, up all night, she can fall asleep quickly and fall if she does not catch herself. 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 Allergies sucralfate [Carafate] Allergy (Intermediate, Verified 06/06/24 14:29) hives NSAIDS (Non-Steroidal Anti-Inflamma Adverse Reaction (Intermediate, Verified 06/06/24 14:29) cannot take due to gastric bypass history Medication List - Last Reconciled 06/06/24 by Oriana Smith MD [2 inch cloth tape As directed] [4x4 sterile gauze pads As directed] alendronate (Fosamax) 70 mg PO QWEEK 90 days aripiprazole 10 mg PO QAM ascorbic acid (vitamin C) 1,000 mg PO QAM bisacodyl (Dulcolax (bisacodyl)) 10 mg (2 x 5 mg) PO BEDTIME 90 days bupropion HCl XL (Wellbutrin XL) 300 mg PO QAM bupropion HCl XL 150 mg PO QAM calcium [id number]-Zn-copy writer-fortino 250 mg-40 mg- 125 unit-3.75mg (Calcium Citrate Plus) 1 tab PO QAM cholecalciferol (vitamin D3) 50 mcg PO QPM escitalopram oxalate (Lexapro) 20 mg PO QAM ferrous sulfate (Feosol) 325 mg PO QPM hydrochlorothiazide 25 mg PO QAM lorazepam 0.5 mg PO DAILY PRN multivitamin (Daily Multi-Vitamin tablet) 1 tab PO QPM omeprazole 40 mg PO DAILY primidone 50 mg PO BEDTIME propranolol ER 60 mg PO BEDTIME prucalopride (Motegrity) 2 mg PO DAILY ropinirole 0.25 mg PO BEDTIME sennosides-docusate sodium 8.6-50 mg (Senexon-S) 2 tabs PO BEDTIME PRN Do you need a note to return to daycare/school/sports/work: No HPI HPI Nocturnal Hypoxemia: Details: This 78 years old very pleasant female comes after 6 months for follow-up. Her main complaint is just getting short of breath when she walks fast or on climbing stairs . This is relatively normal for her, as she is grossly overweight. She has moderate degree of kyphosis, and has restrictive lung disease, but does not have asthma or COPD. She has history of obstructive sleep apnea in the past, but stopped using CPAP about 6 years ago. She has chronic sleep disorder. Does not sleep well at night, after she wakes up after the 1st few hours of sleep then she can not go back to sleep. She say she always sleeps in the recliner. She does have some degree of daytime sleepiness. Recently she had home-based sleep study, and it shows obstructive sleep apnea, mild with total sleep time AHI 6.8, But there is nocturnal hypoxemia with O2 sat below 88% for 24 minutes. This is significant. [facility] Medical History (Updated 06/06/24 @ 14:43 by Oriana Smith MD) SOULEYMANE (obstructive sleep apnea) Wound, open, hip or thigh with complication Encounter for general adult medical examination with abnormal findings Hip pain, right Preoperative cardiovascular examination Change in bowel movement Traumatic seroma of right thigh Postprocedural seroma of skin and subcutaneous tissue following other procedure Open wound of right hip and thigh Peripheral vascular disease Right rib fracture Menopause Pain management Pain management contract agreement Open wound of right lower leg with complication Shortness of breath Cough Edema Influenza A H1N1 infection Hospital discharge follow-up Cellulitis of right leg Varicose veins of right lower extremity with inflammation Enterococcus faecalis infection Abscess Hip pain, right Obesity Lymphedema Morbid obesity due to excess calories Pre-op evaluation Colon cancer screening Medicare annual wellness visit, subsequent Family history of anesthesia complication Back pain Arthritis Renal calculi Post-influenza syndrome Tremor Peripheral vascular disease Right bundle branch block (RBBB) Aortic valve calcification Mitral annular calcification Nocturnal hypoxemia COPD (chronic obstructive pulmonary disease) Restrictive lung disease Stasis edema of both lower extremities Nail fungus Chronic GERD Depression, major, recurrent Hypertension, essential Surgical History History of excision of lesion (10/20/23) History of total hip arthroplasty S/P gastric bypass History of surgery on lower extremity (01/25/23) History of surgery H/O colonoscopy History of cataract extraction History of bilateral tubal ligation History of tonsillectomy Family History Father No problems noted. Mother Alzheimer's disease Maternal Grandmother Cancer Maternal Grandfather No problems noted. Paternal Grandfather No problems noted. Paternal Grandmother No problems noted. Maternal Aunt Cancer Sister Colon cancer Son No problems noted. Daughter No problems noted. Social History Household Members: Children Household Members Other:: daughter Housing: House Housing Other:: mobile home Are you a primary field care advocate to a significant other at home: No Do you presently have visiting nurse or other home services: No Alcohol intake: never Patient Tobacco Use Status: Former Tobacco user Tobacco use type: Cigarette Years Smoked: 40 e-Cigarette/Vaping Use: Currently Using Second Hand Smoke Exposure: No Advance Directives Date on File: 03/13/15 service: No Current occupational status: retired and other Current occupation: right handed Cognitive needs: No Hearing needs: No Vision needs: No Female Reproductive History Menstrual Age of Menarche: 13 Review of Systems Const All systems reviewed & are unremarkable except as noted in HPI and below Eyes Reports no additional complaints ENT Reports no additional complaints Card Reports leg edema and Reports dyspnea Resp Reports as per HPI and Reports dyspnea GI Reports no additional complaints Reports no additional complaints Musc Reports back pain and Reports arthralgias (Mild) Skin/Breast Reports system reviewed and no additional complaints, except as documented Neuro Reports no additional complaints Psych Reports anxiety Endo Reports no additional complaints Valeriy/Lymph Reports no additional complaints Physical Exam Vital Signs: Last Vital Signs Pulse 70 06/06/24 14:01 BP 132/72 06/06/24 14:01 Pulse Ox 96 06/06/24 14:01 Oxygen Delivery Method Room Air 06/06/24 14:01 BMI result Body Mass Index 35.3 Const Other: Patient is grossly obese. Her obesity is mainly abdominal and of lower extremities. General: comfortable, no acute distress, alert and awake Orientation/consciousness: patient oriented x3 HEENT Head: Yes normal to inspection General nose exam: No nasal polyps present and No nasal discharge present Face and sinus: Yes sinuses nontender Mouth: oropharynx normal Throat: Yes posterior oropharynx normal (Oropharynx is only slightly crowded, Mallampati class 2) Eyes General: appearance normal, both eyes and all related structures Neck Neck: Yes normal visual inspection, Yes no lymphadenopathy, Yes trachea midline and Yes no JVD Thyroid: Thyroid normal Chest Chest palpation & inspection: normal inspection of the chest, normal palpation of entire chest wall and no tenderness Resp Effort & Inspection: normal respiratory effort Auscultation: clear to auscultation bilaterally, no crackles and no wheezes Percussion: other (Breath sounds are slightly distant but no wheezes or rhonchi are heard) Cardio Palpation: PMI not normal (PMI is not palpable) Rate: regular rate Rhythm: regular rhythm Heart sounds: no gallops and no murmurs GI Palpation (GI): Soft to palpation, Tenderness to palpation present (GI), No hepatosplenomegaly present and Palpable mass present Auscultation: normal bowel sounds Back/Spine/Pelvis Thoracic/Lumbar Spine: thoracic and lumbar spine normal to inspection and thoraco-lumbar ROM limited Neuro General: patient oriented x3 and no focal motor deficits Cranial nerves: Yes CN's II-XII intact bilaterally Extrem General: Yes normal to inspection, Yes no calf tenderness and Yes edema (There is massive edema of both lower extremities. Has compressive stockings) Psych Appearance: grossly normal and well kempt Speech and movement: Normal speech and movement present Results Reviewed Results Reviewed: Home-based sleep study on 05/01/2024 is reviewed. Total sleep time AHI 6.8 and most of the sleep was in supine position snoring for 21% of the sleep time and O2 sat below 88% for 24 minutes Assessment & Plan Assessment & Plan (1) COPD (chronic obstructive pulmonary disease): Comment: SHE DOES HAVE HISTORY OF SMOKING IN THE PAST HAS OCCASIONAL COUGH AND SHORTNESS OF BREATH ON WALKING FAST. HOWEVER DOES NOT HAVE ANY WHEEZING ATTACKS. CLINICALLY I DO NOT THINK SHE HAS ANY SIGNIFICANT DEGREE OF COPD Code(s): J44.9 - Chronic obstructive pulmonary disease, unspecified Category: Medical Qualifiers: COPD type: emphysema Emphysema type: other Qualified Code(s): J43.8 - Other emphysema Plan: Does not need to use any bronchodilators (2) Restrictive lung disease: Comment: BECAUSE OF HER MORBID OBESITY AND DORSAL KYPHOSIS , SHE DOES MILD TO MODERATE DEGREE OF RESTRICTIVE LUNG DISEASE. Code(s): J98.4 - Other disorders of lung Category: Medical Plan: ENCOURAGED TO KEEP ON DOING DEEP BREATHING EXERCISES 2 OR 3 TIMES A DAY (3) Stasis edema of both lower extremities: Comment: CHRONIC STASIS EDEMA OF LOWER EXTREMITIES. HAS HAD CHRONIC SEEPING OF FLUID FROM THE LEGS, WHICH IS NOW CONTROLLED WITH USE OF COMPRESSIVE STOCKINGS. THERE IS NO ACTIVE SEEPING OF THE FLUID. Code(s): I87.303 - Chronic venous hypertension (idiopathic) without complications of bilateral lower extremity Category: Medical Plan: ENCOURAGED TO KEEP ON USING THE COMPRESSIVE STOCKINGS OVER BOTH LEGS DAILY (4) SOULEYMANE (obstructive sleep apnea): Comment: PATIENT HAS PAST HISTORY OF OBSTRUCTIVE SLEEP APNEA AND STOPPED USING THE CPAP ABOUT 6 YEARS AGO. SHE REMAINS MODERATELY OBESE. SHE HAD A HOME-BASED SLEEP STUDY WHICH CONFIRMS THE DIAGNOSIS OF SLEEP APNEA. EVEN THOUGH IT IS MILD BUT SHE HAS ASSOCIATED NOCTURNAL HYPOXEMIA. Code(s): G47.33 - Obstructive sleep apnea (adult) (pediatric) Category: Medical Plan: BECAUSE OF ASSOCIATED NOCTURNAL HYPOXEMIA IT WILL BE WORTHWHILE TO TREAT OBSTRUCTIVE SLEEP APNEA EVEN THOUGH IT IS MILD. AFTER FULL DISCUSSION WITH THE PATIENT WE HAVE AGREED THAT SHE SHOULD BE STARTED ON CPAP THERAPY WITH AUTO PAP MODE PRESSURE SETTING 6-20 CM. USING FULLFACE MASK. SHE WOULD NEED CLOSE MONITORING FOR COMPLIANCE AND BENEFITS. ONCE SHE STARTS USING CPAP REGULARLY I WOULD ORDER OVERNIGHT OXIMETRY RECORDING TO MAKE SURE THAT HYPOXEMIA IS ALSO CORRECTED (5) Kyphosis: Comment: THIS IS HER CHRONIC DEFORMITY OF THE SPINE, THAT IS NOT PAINFUL, HAS CAUSED MILD RESTRICTIVE DISORDER. Code(s): M40.209 - Unspecified kyphosis, site unspecified Category: Medical Qualifiers: Kyphosis type: postural Spinal region: cervicothoracic Qualified Code(s): M40.03 - Postural kyphosis, cervicothoracic region Plan: NO ACTIVE TREATMENT FOR KYPHOSIS. BUT BECAUSE OF COMFORT SHE SLEEPS MOSTLY IN THE RECLINER. Coding Level of Care Code Est Pt Level 4 (63618) Diagnoses Other emphysema J43.8 COPD type: emphysema Emphysema type: other Restrictive lung disease J98.4 Stasis edema of both lower extremities I87.303 SOULEYMANE (obstructive sleep apnea) G47.33 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 Kyphosis type: postural Spinal region: cervicothoracic
== END 2024-06-06 14:29 | disposition home or self-care (01) ==
PROVIDERS: PCP Internal Medicine; Visit Provider Internal Medicine
DX: J43.8 Other emphysema (principal); J98.4 Other disorders of lung; I87.303 Chronic venous hypertension (idiopathic) without complications of bilateral lower extremity; G47.33 Obstructive sleep apnea (adult) (pediatric); M40.03 Postural kyphosis, cervicothoracic region
CPT/HCPCS: 99214

== ENCOUNTER → 2024-06-06 13:42 | Outpatient (BNVA) | payer MEDICARE, MEDICAID, SELFPAY | PROVIDERS: PCP Internal Medicine; Visit Provider Internal Medicine | DX: J43.8 Other emphysema (principal); J98.4 Other disorders of lung; G47.33 Obstructive sleep apnea (adult) (pediatric); I87.303 Chronic venous hypertension (idiopathic) without complications of bilateral lower extremity; M40.03 Postural kyphosis, cervicothoracic region | CPT/HCPCS: 99212 ==

== ENCOUNTER 2024-06-09 08:44 | Outpatient (AMB) | payer MEDICARE, MEDICAID, SELFPAY ==
[2024-06-09 08:46] VITALS: BMI 35.3
--- NOTE | 2024-06-09 08:46 | A.OFFVIS_ITS ---
Vital Signs 06/09/24 08:46 Height 5 ft Weight 180 lb 12.465 oz BMI 35.3 Intake Visit Reasons: s/p Stereo biopsy rt brst 3:00 density, 10:00 Intake Note: Patient is seen in office for stereo biopsy results, following right breast 3 o'clock density. Pt c/o: no concerns. Speaking Unit Assembler Required: No Accompanied by: Self / Same As Patient Allergies sucralfate [Carafate] Allergy (Intermediate, Verified 06/09/24 08:50) hives NSAIDS (Non-Steroidal Anti-Inflamma Adverse Reaction (Intermediate, Verified 06/09/24 08:50) cannot take due to gastric bypass history HPI Comments Details: 78-year-old female patient well known to me with a prior history of an infected right hip now presenting for evaluation of a recent screening ultrasound performed on 04/04/2024 with follow-up images on 05/11/2024 and ultrasound also performed on 05/11/2024. This revealed a evolving cluster of calcifications in the right 10 o'clock position as well as a new density located in the 3 o'clock position felt to be suspicious for malignancy. She is scheduled for a stereotactic guided core biopsy x2 of the right breast. She reports a previous stereotactic guided core biopsy performed on the left side for calcifications which was benign. She denies a family history of breast or ovarian cancer. Menarche was the age of 13. She is 2 para 2 (a 3rd child is adopted). Her 1st child was born when she was 21. Her last menstrual period was at the age of 51. She denied using hormone replacement. She denies previous genetic testing. She denies Ashkenazi Gnosticism heritage. [facility] remaining lifetime risk of breast cancer is 1.8%. She underwent stereotactic guided core biopsy x2. Pathology results revealed benign results however the marking clip for the 2nd lesion is not in the expected location. Follow-up diagnostic mammography is recommended. The patient tolerated the procedure well but does report complaints of itchiness in the skin. [facility] Medical History SOULEYMANE (obstructive sleep apnea) Wound, open, hip or thigh with complication Encounter for general adult medical examination with abnormal findings Hip pain, right Preoperative cardiovascular examination Change in bowel movement Traumatic seroma of right thigh Postprocedural seroma of skin and subcutaneous tissue following other procedure Open wound of right hip and thigh Peripheral vascular disease Right rib fracture Menopause Pain management Pain management contract agreement Open wound of right lower leg with complication Shortness of breath Cough Edema Influenza A H1N1 infection Hospital discharge follow-up Cellulitis of right leg Varicose veins of right lower extremity with inflammation Enterococcus faecalis infection Abscess Hip pain, right Obesity Lymphedema Morbid obesity due to excess calories Pre-op evaluation Colon cancer screening Medicare annual wellness visit, subsequent Family history of anesthesia complication Back pain Arthritis Renal calculi Post-influenza syndrome Tremor Peripheral vascular disease Right bundle branch block (RBBB) Aortic valve calcification Mitral annular calcification Nocturnal hypoxemia COPD (chronic obstructive pulmonary disease) Restrictive lung disease Stasis edema of both lower extremities Nail fungus Chronic GERD Depression, major, recurrent Hypertension, essential Surgical History History of excision of lesion (10/20/23) History of total hip arthroplasty S/P gastric bypass History of surgery on lower extremity (01/25/23) History of surgery H/O colonoscopy History of cataract extraction History of bilateral tubal ligation History of tonsillectomy Family History Father No problems noted. Mother Alzheimer's disease Maternal Grandmother Cancer Maternal Grandfather No problems noted. Paternal Grandfather No problems noted. Paternal Grandmother No problems noted. Maternal Aunt Cancer Sister Colon cancer Son No problems noted. Daughter No problems noted. Social History Household Members: Children Household Members Other:: daughter Housing: House Housing Other:: mobile home Are you a primary acute care nurse to a significant other at home: No Do you presently have visiting nurse or other home services: No Alcohol intake: never Patient Tobacco Use Status: Former Tobacco user Tobacco use type: Cigarette Years Smoked: 40 e-Cigarette/Vaping Use: Currently Using Second Hand Smoke Exposure: No Advance Directives Date on File: 03/13/15 service: No Current occupational status: retired and other Current occupation: right handed Cognitive needs: No Hearing needs: No Vision needs: No Female Reproductive History Menstrual Age of Menarche: 13 Physical Exam Vital Signs: BMI result Body Mass Index 35.3 Const General: no acute distress Nutritional Appearance: well nourished Orientation/consciousness: patient oriented x3 Chest Other: Biopsy site with some ecchymosis and surrounding erythema suggestive of a allergic reaction to the tape. No hematoma or seroma is appreciated. Resp Effort & Inspection: normal respiratory effort Skin Other: Warm, dry, no rash Neuro General: patient oriented x3 Assessment & Plan Assessment & Plan (1) Abnormal mammogram of right breast: Code(s): R92.8 - Other abnormal and inconclusive findings on diagnostic imaging of breast Category: Medical Plan Preliminary pathology results revealed benign breast tissue although there is some concern about the 2nd lesion not being at the right location. She is scheduled for follow-up diagnostic mammogram of the right breast in 1 month. Further follow-up will be determined by the results of this study. Orders: Orders MM diagnostic mammo unilat RT Today R92.8 - Other abnormal and inconclusive findings on diagnostic imaging of breast Coding Level of Care Code Est Pt Level 3 (50710) Diagnoses Abnormal mammogram of right breast R92.8
== END 2024-06-09 08:58 | disposition home or self-care (01) ==
PROVIDERS: PCP Internal Medicine; Visit Provider Surgery
DX: R92.8 Other abnormal and inconclusive findings on diagnostic imaging of breast (principal)
CPT/HCPCS: 99213

== ENCOUNTER → 2024-06-09 08:44 | Outpatient (BNVA) | payer MEDICARE, MEDICAID, SELFPAY | PROVIDERS: PCP Internal Medicine; Visit Provider Surgery | DX: M25.551 Pain in right hip (principal); R92.8 Other abnormal and inconclusive findings on diagnostic imaging of breast; Z96.641 Presence of right artificial hip joint | CPT/HCPCS: 99212 ==

== ENCOUNTER 2024-06-09 10:34 | Outpatient (AMB) | payer MEDICARE, MEDICAID, SELFPAY ==
--- NOTE | 2024-06-09 10:40 | A.OFFVIS_ITS ---
Vital Signs 06/09/24 10:44 Height 5 ft Weight 178 lb BMI 34.8 BP 159/72 H Blood Pressure Location Rt brachial Position Sitting Pulse 77 Pulse Source Pulse Oximeter Intake Visit Reasons: Follow UP After PT Intake Note: Pain today 0/10 Biostatistics Manager Required: No Accompanied by: Self / Same As Patient Allergies sucralfate [Carafate] Allergy (Intermediate, Verified 06/09/24 10:45) hives NSAIDS (Non-Steroidal Anti-Inflamma Adverse Reaction (Intermediate, Verified 06/09/24 10:45) cannot take due to gastric bypass history HPI Comments Details: Patient presents back to the office today for follow-up, review a recent x-ray X-ray reviewed, results as per below Patient continues with anterior right hip pain with movement, leg raise, walking. No pain at rest. She has completed physical therapy with no improvement Prior: Mayra is a very pleasant 78-year-old female who presents to the office today for evaluation management of her right hip pain. Past medical history significant for osteoporosis, kyphosis, right hip arthroplasty, dysphagia, anemia, tubular adenoma of the colon, mitral annular calcification, lymphedema, obesity, right bundle branch block, nocturnal hypoxemia, COPD, GERD, depression and hypertension Patient has been suffering with this pain for approximately 1 year. She is status post right hip replacement approximately 10 years ago Denies inciting injury, fall, trauma 1 year ago she was re-evaluated by orthopedics, pain improved on its own. She states she had an x-ray at that time with no acute findings. Pain returned approximately 3 months ago without inciting injury. Pain is worse with movement and walking. She ambulates with use of a cane. Pain today is rated as a 5/10 Pain is slightly improved with rest and Tylenol. Endorses anterior right hip pain with some radiation to the groin and right thigh. Patient is unable to take nonsteroidal anti-inflammatory medications due to history of gastric bypass. She has not attempted physical therapy, acupuncture or massage In terms of muscle damage condition is described as dull, sore, tight, squeezing, pulling Pain is negatively impacting patient's enjoyment of life, general activity, ambulation, activity, ability to perform activities of daily living Denies current use of anticoagulants Denies implantable devices, pacemaker defibrillator [facility] Medical History SOULEYMANE (obstructive sleep apnea) Wound, open, hip or thigh with complication Encounter for general adult medical examination with abnormal findings Hip pain, right Preoperative cardiovascular examination Change in bowel movement Traumatic seroma of right thigh Postprocedural seroma of skin and subcutaneous tissue following other procedure Open wound of right hip and thigh Peripheral vascular disease Right rib fracture Menopause Pain management Pain management contract agreement Open wound of right lower leg with complication Shortness of breath Cough Edema Influenza A H1N1 infection Hospital discharge follow-up Cellulitis of right leg Varicose veins of right lower extremity with inflammation Enterococcus faecalis infection Abscess Hip pain, right Obesity Lymphedema Morbid obesity due to excess calories Pre-op evaluation Colon cancer screening Medicare annual wellness visit, subsequent Family history of anesthesia complication Back pain Arthritis Renal calculi Post-influenza syndrome Tremor Peripheral vascular disease Right bundle branch block (RBBB) Aortic valve calcification Mitral annular calcification Nocturnal hypoxemia COPD (chronic obstructive pulmonary disease) Restrictive lung disease Stasis edema of both lower extremities Nail fungus Chronic GERD Depression, major, recurrent Hypertension, essential Surgical History History of excision of lesion (10/20/23) History of total hip arthroplasty S/P gastric bypass History of surgery on lower extremity (01/25/23) History of surgery H/O colonoscopy History of cataract extraction History of bilateral tubal ligation History of tonsillectomy Family History Father No problems noted. Mother Alzheimer's disease Maternal Grandmother Cancer Maternal Grandfather No problems noted. Paternal Grandfather No problems noted. Paternal Grandmother No problems noted. Maternal Aunt Cancer Sister Colon cancer Son No problems noted. Daughter No problems noted. Social History Household Members: Children Household Members Other:: daughter Housing: House Housing Other:: mobile home Are you a primary career technical counselor to a significant other at home: No Do you presently have visiting nurse or other home services: No Alcohol intake: never Patient Tobacco Use Status: Former Tobacco user Tobacco use type: Cigarette Years Smoked: 40 e-Cigarette/Vaping Use: Currently Using Second Hand Smoke Exposure: No Advance Directives Date on File: 03/13/15 service: No Current occupational status: retired and other Current occupation: right handed Cognitive needs: No Hearing needs: No Vision needs: No Female Reproductive History Menstrual Age of Menarche: 13 Review of Systems Const All systems reviewed & are unremarkable except as noted in HPI and below Physical Exam Vital Signs: Last Vital Signs Pulse 77 06/09/24 10:44 BP 159/72 H 06/09/24 10:44 BMI result Body Mass Index 34.8 General: awake, alert, oriented. Answers questions appropriately. Fully engaged in examination. Skin: warm, dry, intact HEENT: Normocephalic. Hearing intact. Cardiac: External chest normal in appearance. Respiratory: No cough, audible wheezing or stridor. Abdomen: without gross distension. MS: No obvious swelling or deformities. Right hip: Pain anteriorly with seated leg raise, internal/external rotation. Nontender to palpation. Neurological: Oriented to person, place, time and situation. Thought process intact. Ambulates with the use of a cane Psychiatric: Appropriate mood and affect. Good judgment and insight. Results Reviewed Results Reviewed: 04/20/24 XR/XR hip RT min 2V FINDINGS: Total right hip arthroplasty in expected anatomic alignment. No hardware or osseous fracture. No dislocation. No concerning lytic or blastic osseous lesion. Cortical irregularity at the proximal head, unchanged and consistent with postsurgical change versus a remote, healed fracture. No concerning lytic or blastic osseous lesion. Atherosclerotic calcifications. IMPRESSION: 1. Total right hip arthroplasty without evidence of complication. 2. No acute osseous abnormality. Assessment & Plan Assessment & Plan (1) Hip pain, right: Code(s): M25.551 - Pain in right hip Category: Medical (2) S/P total right hip arthroplasty: Code(s): Z96.641 - Presence of right artificial hip joint Category: Surgical Plan X-rays reviewed, results as per above Patient has exhausted conservative therapy including PT, home exercise program, topical nonsteroidal anti-inflammatory medication Will schedule for right hip ultrasound exam to be completed in the office with Dr. Sosa All questions and concerns were answered, patient agrees with plan. Follow up after for ultrasound exam, sooner if needed Coding Level of Care Code Est Pt Level 3 (37917) Complex EM visit Add On G2211 Diagnoses Hip pain, right M25.551 S/P total right hip arthroplasty Z96.641
[2024-06-09 10:44] VITALS: BP 159/72; PULSE 77; BMI 34.8
== END 2024-06-09 11:15 | disposition home or self-care (01) ==
PROVIDERS: PCP Internal Medicine; Visit Provider Registered Nurse Emergency
DX: M25.551 Pain in right hip (principal); Z96.641 Presence of right artificial hip joint
CPT/HCPCS: 99213; G2211

== ENCOUNTER 2024-06-12 09:21 | Outpatient (AMB) | payer MEDICARE, MEDICAID, SELFPAY ==
--- NOTE | 2024-06-12 09:28 | A.OFFVIS_ITS ---
Vital Signs 06/12/24 09:30 Height 5 ft Weight 174 lb BMI 34.0 BP 128/60 Blood Pressure Location Rt brachial Position Sitting Respiration 16 Pulse 84 Pulse Source Pulse Oximeter Pulse Oximetry (%) 92 Oxygen Delivery Method Room Air Intake Visit Reasons: Right Hip Ultrasound Exam (Per Gabbi) Senior Water/Wastewater Engineer Required: No Gumming Machine Operator: Gumming Machine Operator Present Accompanied by: Kapil Miller Allergies sucralfate [Carafate] Allergy (Intermediate, Verified 06/12/24 09:31) hives NSAIDS (Non-Steroidal Anti-Inflamma Adverse Reaction (Intermediate, Verified 06/12/24 09:31) cannot take due to gastric bypass history Medication List - Last Reconciled 06/12/24 by Darshana Mantilla LPN [2 inch cloth tape As directed] [4x4 sterile gauze pads As directed] alendronate (Fosamax) 70 mg PO QWEEK 90 days aripiprazole 10 mg PO QAM ascorbic acid (vitamin C) 1,000 mg PO QAM bisacodyl (Dulcolax (bisacodyl)) 10 mg (2 x 5 mg) PO BEDTIME 90 days bupropion HCl XL (Wellbutrin XL) 300 mg PO QAM bupropion HCl XL 150 mg PO QAM calcium arp-cbz-[id number]-Zn-hat copyist-fortino 250 mg-40 mg- 125 unit-3.75mg (Calcium Citrate Plus) 1 tab PO QAM cholecalciferol (vitamin D3) 50 mcg PO QPM escitalopram oxalate (Lexapro) 20 mg PO QAM ferrous sulfate (Feosol) 325 mg PO QPM hydrochlorothiazide 25 mg PO QAM lorazepam 0.5 mg PO DAILY PRN multivitamin (Daily Multi-Vitamin tablet) 1 tab PO QPM omeprazole 40 mg PO DAILY primidone 50 mg PO BEDTIME propranolol ER 60 mg PO BEDTIME prucalopride (Motegrity) 2 mg PO DAILY ropinirole 0.25 mg PO BEDTIME HPI HPI Right Hip Ultrasound Exam (Per Gabbi): Details: History of Present Illness The patient is a 78-year-old female presenting with persistent right hip pain. She is status post right hip arthroplasty performed ten years ago. Since the procedure, she has experienced ongoing pain in the right lateral and anterior hip region. Previous evaluations noted tenderness over the right greater trochanteric area. The goal of today's visit is further evaluation and management of her hip pain, including consideration of a hip injection. Pain Description - Right hip pain with lateral and anterior localization. - Tenderness noted over the right greater trochanteric region. - Pain exacerbated by certain movements, without specific relieving factors discussed. Physical Exam - Musculoskeletal- Tenderness over right greater trochanteric area [facility] Medical History SOULEYMANE (obstructive sleep apnea) Wound, open, hip or thigh with complication Encounter for general adult medical examination with abnormal findings Hip pain, right Preoperative cardiovascular examination Change in bowel movement Traumatic seroma of right thigh Postprocedural seroma of skin and subcutaneous tissue following other procedure Open wound of right hip and thigh Peripheral vascular disease Right rib fracture Menopause Pain management Pain management contract agreement Open wound of right lower leg with complication Shortness of breath Cough Edema Influenza A H1N1 infection Hospital discharge follow-up Cellulitis of right leg Varicose veins of right lower extremity with inflammation Enterococcus faecalis infection Abscess Hip pain, right Obesity Lymphedema Morbid obesity due to excess calories Pre-op evaluation Colon cancer screening Medicare annual wellness visit, subsequent Family history of anesthesia complication Back pain Arthritis Renal calculi Post-influenza syndrome Tremor Peripheral vascular disease Right bundle branch block (RBBB) Aortic valve calcification Mitral annular calcification Nocturnal hypoxemia COPD (chronic obstructive pulmonary disease) Restrictive lung disease Stasis edema of both lower extremities Nail fungus Chronic GERD Depression, major, recurrent Hypertension, essential Surgical History History of excision of lesion (10/20/23) History of total hip arthroplasty S/P gastric bypass History of surgery on lower extremity (01/25/23) History of surgery H/O colonoscopy History of cataract extraction History of bilateral tubal ligation History of tonsillectomy Family History Father No problems noted. Mother Alzheimer's disease Maternal Grandmother Cancer Maternal Grandfather No problems noted. Paternal Grandfather No problems noted. Paternal Grandmother No problems noted. Maternal Aunt Cancer Sister Colon cancer Son No problems noted. Daughter No problems noted. Social History Household Members: Children Household Members Other:: daughter Housing: House Housing Other:: mobile home Are you a primary career technology teacher to a significant other at home: No Do you presently have visiting nurse or other home services: No Alcohol intake: never Patient Tobacco Use Status: Former Tobacco user Tobacco use type: Cigarette Years Smoked: 40 e-Cigarette/Vaping Use: Currently Using Second Hand Smoke Exposure: No Advance Directives Date on File: 03/13/15 service: No Current occupational status: retired and other Current occupation: right handed Cognitive needs: No Hearing needs: No Vision needs: No Female Reproductive History Menstrual Age of Menarche: 13 Physical Exam Vital Signs: Last Vital Signs Pulse 84 06/12/24 09:30 Resp 16 06/12/24 09:30 BP 128/60 06/12/24 09:30 Pulse Ox 92 06/12/24 09:30 Oxygen Delivery Method Room Air 06/12/24 09:30 BMI result Body Mass Index 34.0 Office Procedures AMB Joint Injection/Aspiration Joint Injection/Aspiration Details: Greater Trochanteric Bursa Injection, Right, US guided After informed written consent was obtained, the patient was placed in the supine position. Pre-procedure oxygen saturation, heart rate, and blood pressure were recorded. The skin was prepped with Chloroprep, and draped in a sterile fashion. With the use of ultrasound the greater trochanter was identified. 22 gauge needle was then advanced toward the trochanteric bursa. Once in position, and after negative aspiration 20mg kenalog mixed with 0.5% ropivcaine (5 mL total). There was no evidence of paresthesias throughout needle placement. The patient tolerated the procedure well and there was no evidence of procedural complications. The patient was observed in the procedure room for 20 minutes, vitals were stable, and discharged in stable condition. Coding Details: [place] record [id number] - Glenohumeral/Tronchanteric Bursa/Intraarticular Procedure code (CPT) selection complete Assessment & Plan Assessment & Plan (1) Greater trochanteric pain syndrome: Code(s): M25.559 - Pain in unspecified hip Category: Medical Plan: Plan - S/p right greater trochanteric injection under ultrasound guidance. - Monitor patient's response to the injection for future follow-up as needed. Patient was informed and verbally consented to the use of an ambient scribe for clinic note documentation during this visit. Discussion Notes I discussed with the patient the plan to proceed with an injection to alleviate her right hip pain. I explained the procedure, including using ultrasound guidance for injection precise placement. I informed her of the potential benefits, such as pain relief, and discussed any risks associated with the injection. The patient consented to proceed with the injection. We will monitor her response to determine further follow-up. Patient Instructions - Follow up as needed based on the response to the injection. - Report immediately if there are any adverse reactions or worsening pain. Coding Level of Care Code Est Pt Level 3 (48409) Diagnoses Greater trochanteric pain syndrome M25.559 CPT Codes Coding - Joint 7: 71882 - Glenohumeral/Tronchanteric Bursa/Intraarticular ([id number])
[2024-06-12 09:30] VITALS: BP 128/60; PULSE 84; RESP 16; O2SAT 92; BMI 34.0
== END 2024-06-12 09:57 | disposition home or self-care (01) ==
PROVIDERS: PCP Internal Medicine; Visit Provider Internal Medicine
DX: M25.559 Pain in unspecified hip (principal)
CPT/HCPCS: 20611; 99213

== ENCOUNTER → 2024-06-12 09:21 | Outpatient (BNVA) | payer MEDICARE, MEDICAID, SELFPAY | PROVIDERS: PCP Internal Medicine; Visit Provider Internal Medicine | DX: M25.551 Pain in right hip (principal) | CPT/HCPCS: 20611; 99212 ==

== ENCOUNTER 2024-06-23 08:48 | Outpatient (REF) | payer MEDICARE, MEDICAID, SELFPAY ==
--- NOTE | ~2024-06-23 | MM_ITS ---
EXAMINATION: MM DIAGNOSTIC DIGITAL BREAST TOMOSYNTHESIS, RIGHT CLINICAL INFORMATION: Post procedure mammogram patient does not have 2-D imaging and the clips were difficult to interpret. Return for 2-D imaging for 2 areas of benign pathology status post stereotactic core needle biopsy. COMPARISON: Mammography: Comparison is made with available prior examinations. TECHNIQUE: Digital breast tomosynthesis is performed in both the craniocaudal and mediolateral oblique views along with computer-aided detection (CAD). Synthesized 2D images are generated from the tomosynthesis. FINDINGS: There are scattered areas of fibroglandular density (ACR BI-RADS breast composition Category b). Marker clips in the upper outer breast and central inner right breast from benign needle core biopsies are appropriately located post procedures. There are no significant masses, abnormal calcifications, or other abnormalities. MM/MM tomosynthesis diagnostic RT IMPRESSION: There are no significant changes from prior study. ASSESSMENT: BI-RADS BI-RADS 1 - Negative RECOMMENDATION: 1 year F/U Results were provided to the patient at time of visit by the technologist. This patient's information was entered into a reminder system with a target due date for their next mammogram. Electronically signed by: Diane Pillai DO 06/23/2024 09:36 AM EST
--- OUTSIDE RECORDS SUMMARY | 2024-06-23 09:03 | XMS_ITS | Data Portability ---
Author Organization [place] [facility] Address [address] [place] [address] Care Team Providers Care Clinical Program Manager Name Role Phone STEPHANIE MARIE Primary Care Provider [phone] [facility] OTHER [phone] Assessment Encounter Date Assessment Date Assessment LastModified by Organization Details LastModified Time 10/04/2021 10/04/2021 Overview/History : 75 YO F new to DH and new to provider She is being seen today for some Rt hip redness, it has been going on for months on and off She thinks it started oozing now and that is why she is requesting it get looked She reports the drainage is clear, no exudative drainage No other skin issues, no hx DM, no PVD No fever, chills, non-painful except when she touches it. She does have hx of operation to her hip on this side but this was 7 years ago, nothing recent She denies any cp, lightheadedness/d izziness, weakness, numbness/tingling , hip pain, decreased ROM, fever/chills. There are no other reported sx's today. Of note does reports she went to ther ER last night to get this looked at and she left after the wait was going to be 10+ hours, this was [facility] [place]. Exam: Vitals: VSS and afebrile Constitutional: 75 yo Well developed, well nourished, pleasant patient in no apparent distress. Comfortbale nad nontoxic appearing. Eyes: No swelling, no discharge, sclera / conjunctiva clear CV: RRR, 2+ radial pulses bilaterally, no edema Pulm: Speaks in full sentences, no increased work of breathing. MS: Self ambulatory patient, moves all limbs without deficit, no evidence of trauma, full AROM noted throughout Neuro: No focal deficits, A&O x4, gait is not ataxic, no tremors noted during visit Skin: Small open wound noted to Rt hip. Mild amount of serosanguinous drainage. No bleeding. No exudative drainage. Tracks into subcutaneous tissue about 0.3 cm at deepest point. Wound itself is round and about 0.75cm in diameter. Some surrounding pink tissue, no fluctuance, no tenderness, no spreading erythema. No other skin issues noted to visible skin. Psych: Calm, cooperative, non-manic. Pleasant. DDx considered, but not limited to: Wound Cellulitis - possible d/t some redness surrounding small open wound, will tx w/ Keflex osteomyelitis - considered d/t open wound to the hipe area however there is no systemic s/s of infx and the wound is fairly superficial tracking 0.3 cm at deepest point only in subcutaneous tissue. She has no risk factors ie DM. Doubt this diagnosis heavily Septic Arthritis - considered d/t wound proximity to previously replaced joint. As above wound is fairly superficial and does not track very deeply. No joint pain, diff ambulating, loss of ROM, or fever. Heavily doubt this at this time Necrotizing fascitis - no rapid progression, no fever, VSS, no sig pain, no Sub Q emphysema Work up/Results: N/a Plan/Discussion: Wound cellulitis: -Some redness surrounding open wound. No exudative drainage and no systsmeic signs of infx -She has no risk factors for severe infx such as PVD and/or DM -The wound is directly on pressure point of lateral hip where she reports her pants and seat-belt can rub a lot. She also is obese w/ skin fold sin the area and it is possible there could be some skin breakdown from poor hygiene ie moisture -The wound currently tracks ~0.3 cm at max depth and only involve subQ tissue. -I performed basic wound care, covered wound w/ bacitracin an abd pada dn gauze to catch drianage, and covered w/ tape. She can redress wound daily in similar fashion (explained in detail to patient what I have done and she fully understands this and will re dress wound daily) she has dtr in home that will help with this and keep eye on it as well. -I will tx for presumed cellulitis w/ Keflex x 5 days, first dose given on scene and no issues w/ 15 min obs -She is to f/u for any worsening -She is educated on importance of f/u with PCP for probably wound care/clinic referral given her wound. She will call their office on Wednesday when they open and as always PCP shall get copy of this note for review -She is to f/u emergently w/ any sig hip pain, any hip redness, decreased ROM, fever > 101.5 F, new wounds, spreading redness, sig pain, weakness, lethargy, numbness/tingling , progression of wound rena rapid progression Pt is on agreement and verbalizes understanding with the above plans at this time. Pt has no other questions or concerns at this time. All questiosn are answered to the best of my ability. Pt thanks us for our visit today. [email or web address] Not available 10/04/2021 11:18:54 01/03/2022 01/03/2022 Overview/History : 76 yo female known to and new to this provider with PMH of Depression and left Hip replacement with recent debridement of a wound over the left hip who is being seen today for redness under her lower abdomen fold x 3 days. Exam: Alert, Well appearing morbidly obese female, HEENT unremarkable, Lungs CTA, unlabored, RRR no MGR, no peripheral edema, peripheral pulses 2+, Abdomen nondistended soft nontender, moving all extremities, speech clear, normal steady gait, Skin under right lower fold is beefy red in appearance and intact, with no drainage, nontender. Vital Signs: Afebrile, VS stable DDx considered, but not limited to: cellulitis, dermatitis, candidiasis Work up/Results: exam Plan/Discussion: - Patient appears well, is afebrile and VSS. - Reports pruritic rash within skin fold similar to rashes she has had in the past. - She recently was outdoors for a number of hours and was sweating and since then developed this rash. - She has no pain, fever, chills, drainage or weakness or malaise. - She is eating and drinking well and reports feeling well overall. - No evidence of local bacterial or systemic infection. - Likely mar intertrigo In order to obtain further information and compare any laboratory results/values, I have accessed old patient records. This information was pertinent in my medical decision making today. [email or web address] Not available 01/03/2022 13:02:59 05/07/2022 05/07/2022 Brief Overview:[age] yo female who is established with and is new to this provider with tremors, depression, LE edema being seen for cough, congestion, shortness of breath and not feeling well for the past 10 days. I have reviewed the old records from (hospital system/practice) , on this date of service _01/03/2022 . Specifically, the data/test result/record I reviewed was: visit notes. Vital Signs:VSS with RR slightly evelated initially. Improved with neb treatment Exam:NAD, pleasant and interactive, tachypnic with exertion, recovers after approx 1 min, RRR, lungs with obvious rhonchi and congestion on right, congestion improved post neb but rhonchi remained, bilateral LE pitting edema 2+ DDx considered, with rationale: -pneumonia: most likely given hx of recent flu A with increased shortness of breath, continue coughing and congestion -Flu: primary dx with secondary pneumonia -COVID: neg COVID test five days ago at ED. Current COVID infection possible but pneumonia secondary to fluA more likely -URI:Possible but pneumonia more likely given lung exam and hx of flu A -CHF: possible but BNP at ED was 89 (normal). Has ongoing swelling in LE for the past three months. Has additional work up of LE swelling scheduled Time On Scene with Patient: 00:42:25 [email or web address] Not available 05/07/2022 10:35:29 07/04/2022 07/04/2022 Brief Overview: 76 y/o female known to new to provider with hx of HTN, depression, lymphedema. pt reports she has been scheduled to see pulmonology in August as her pcp suspects she may have COPD. pt reports on 07/02 she developed cough, wheezing and sob. cough is productive at times with yellow sputum. she has runny nose also with clear/ yellow drainage. pt is a former smoker. she reports she had a similar episode back in april she was tx for bronchitis. states she does not want to wait like she did before as that caused her breathing to get bad. she denies any fever or known sick contacts. no prior hx of covid. she denies cp, dizziness, weakness, JOHNSTON, body aches. no skin rash. no abdominal pain, nausea, vomiting or diarrhea. Vital Signs: BP 128/78, HR 90, RR 18, T 97.5, O2 95% RA Exam: 76 y/o female well appearing, alert, NAD. eyes: no injection icterus or discharge. nose: nares patent no discharge. ears: TMs and EACs clear. mouth: moist mucous membranes, no erythema, uvula is midline. no cervical lymphadenopathy. lungs: expiratory wheezing noted bilaterally. no rales or rhonchi. heart: RRR no murmur rubs or gallops. no peripheral edema. chronic lymphedema bilateral legs- lower legs are wrapped. abdomen: obese, soft, normal bowel sounds, non tender. skin: no rashes or lesions. strength is normal and equal bilaterally. gait and stance is normal. DDx considered, with rationale: Pneumonia: considered but she is afebrile and has bilateral wheezing. CHF: considered but no peripheral edema or reported weight gain. Covid: considered but rapid is negative. Results/ work up: Rapid covid was negative. Duoneb given on scene see procedure note. symptoms improved after tx. Plan: Acute Bronchitis: rest and keep hydrated. recommend use of humidifier in her room. continue using your rescue inhaler as prescribed by pcp. ok to take OTC plain mucinex as directed on the package. Start RX Prednisone 20 mg take 2 tabs PO daily x 5 days. take with food. monitor your blood sugar level while taking this med as prednisone can cause your blood sugar reading to be elevated. notify pcp if glucose 200 or above. follow up with pcp in 3-5 days or sooner pnr. go to the ER with any new or worsening symptoms cp, increased sob, wheezing, tightness, edema, fever, dizziness, weakness. HTN: currently controlled. follow up with pcp as scheduled. go to the ER with worsening symptoms cp, sob, edema, dizziness, JOHNSTON. Proper Personal Protective Equipment (PPE), including gloves, eye protection and masks were donned and doffed appropriately and all equipment cleaned using approved technique with germicidal disposable wipes prior to and after care of this patient according to [facility] infection prevention protocols. [email or web address] Not available 07/04/2022 12:44:13 10/06/2022 10/06/2022 Brief Overview: 76 year old F with previous medical history of depression, htn, COPD, obesity with cc today of drainage from right hip wound. Pt states had hip replacement 7 years ago to right hip where she initially had seroma that needed drains. Last year with similar episode as now where she started to have drainage of right hip wound and needed surgical debridement. Does have orthopedic doc that she has not yet contacted. Has wound care follow up on october 16, 2022. Denies fevers, hip pain, surrounding erythema or edema. New to provider. Not new to DH. Vital Signs: 124/68, HR 65, T 98.2, RR 18, O2 97% Exam: R hip with wound. Diameter measures 3 cm. Tunnels 8 cm with q tip no purulent drainage with q tip probing, only sanguinous drainage noted. Surface lesion with hyper granulation tissue, stringy drainage. No surrounding erythema or edema. Full ROM of hip. No pain with palpation of wound. DDx considered, with rationale: Seroma- likely with c/o serous drainage less likely in patient 7 years post op prosthetic joint infection/ osteomyelitis- low suspicion without fevers, pain, erythema but will obtain XR to rule out cellulitis- likely with presenting sx SIRS/ sepsis- not likely with normal VS, no pain with movement No emergent indications for escalation based off vital sign review and exam. Handwritten discharge papers completed and provided to patient. All questions answered. wound care [phone] - wound care states that they have no apts sooner than but will place pt on cancellation list Not available 10/06/2022 12:38:07 Plan of Treatment Reminders Order Date Submit Date Provider Last Modified By Organization Details Last Modified Time Details Appointments None recorded. Lab rapid SARS CoV 2 Ag, QL IA, respiratory specimen 2022 023 [email or web address] 5 [facility], [address] [place] [address], [id number], 12:38:31 Referral None recorded. Procedures None recorded. Surgeries None recorded. Imaging XR, pelvis, 3 or more view - rule out osteomyelit is. tunneling wound over [facility] [address], [place], [address], 3 11:01:28 XR, chest, 2 view 2021 022 [facility] [address], [place], [address], 2 11:58:06 Medication Orders doxycycline hyclate 100 mg capsule 2022 023 [facility] #[id number], [address] [place], [address], 3 12:35:07 albuterol sulfate concentrate 2.5 mg/0.5 mL solution for nebulizatio n 2022 023 [email or web address] 5 [facility]/Pharmacy #[id number], [address] [place], [address], 3 12:38:23 ipratropium bromide 0.02 % solution for inhalation 2022 023 [email or web address] 5 [facility]/Pharmacy #[id number], [address] [place], [address], 3 12:38:34 prednisone 20 mg tablet 2022 023 [email or web address] [facility]acy #[id number], [address] [place], [address], 3 12:02:14 prednisone 10 mg tablet 2022 023 maury [facility]/Pharmacy #[id number], [address] [place], [address], 3 12:02:10 amoxicillin 875 mg-potassiu m clavulanate 125 mg tablet 2021 022 [email or web address] 5 [facility]/Pharmacy #[id number], [address] [place], [address], 3 11:35:26 azithromyci n 250 mg tablet 2021 022 [email or web address] 5 [facility]/Pharmacy #[id number], [address] [facility] [place], [address], 3 11:35:33 albuterol sulfate concentrate 2.5 mg/0.5 mL solution for nebulizatio n [address]/Pharmacy #[id number], [address] [facility] [place], [address], 2 10:12:45 ipratropium bromide 0.02 % solution for inhalation [address]/Pharmacy #[id number], [address] [facility] [place], [address], 2 10:12:42 nystatin 100,000 unit/gram topical cream [address]/Pharmacy #[id number], [address] [facility] [place], [address], 2 09:43:56 cephalexin 500 mg capsule 2021 022 [email or web address] 5 [facility]/Pharmacy #[id number], [address] [facility] [place], [address], 3 11:35:49 cephalexin 500 mg capsule 2021 022 [email or web address] 5 [facility]/Pharmacy #[id number], [address] [facility] [place], [address], 3 11:35:49 Patient TargetsNo targets recorded. Patient Instructions Encounter Date Encounter Id Patient Instructions Last Modified By Organization Details Last Modified Time 01/03/2022 [id number] candidiasis: car e instructions [email or web address] Not available 01/03/2022 12:34:09 You were seen today for an itchy rash under your abdomen fold for the past 3 days, similar to one you have had in the past. This rash appears to be a yeast infection of the skin. We recommend Nystatin cream to be applied to the area 2 times per day over the affected area. Keep the area clean and dry. You may eat live culture yogurt or take a probiotic which may help. Please review the candidiasis instructions provided to you. If the rash does not improve in 3-4 days, please call your PCP for follow up. If the redness increases, or you have any drainage or pain, please call your PCP or [facility] sooner to recheck your rash. Call 911 if any weakness, fatigue, fever or chills or severe or persistent pain. [email or web address] Not available 01/03/2022 13:03:10 05/07/2022 [id number] start mucinex as directed to help thin mucous drink plenty of fluids continue humidifier/steam rest continue albuterol inhaler four times per day for cough/breathing can use peppermints for cough can use honey for cough *[facility] will call to schedule chest xray. Should be complete within the next 24hrs [facility] on Wednesday for recheck Please get to the ER if you are feeling worse [email or web address] Not available 05/07/2022 10:16:40 10/06/2022 [id number] Thank you for yo ur visit with [facility] today. You were seen today for treatment of a wound. Please seek immediate medical attention if you develop increased pain, redness, or swelling of your wound. Also, you should be evaluated if the wound becomes warm to the touch, or if there is a cloudy, yellow-brown discharge from the wound. There is always the possibility of a hidden tendon injury or foreign object in the wound. If you have problems moving your arm or leg, or if you see red streaks up the arm or leg, seek immediate medical attention. If you develop any new or worsening symptoms and need after hours care, please go to nearest ER and/or call 911. If you have additional concerns or develop a change in your condition between 8am-10pm, please call [facility] at [phone] to help navigate your care. Not available 10/06/2022 12:03:22 Reason for Referral None Reported. Results Created Date Observation Date Name Description Value Unit Range Abnormal Flag Note LastModifiedBy Organization Detail LastModifiedTime 07/04/19 23 07/04/2022 rapid SARS CoV 2 Ag, QL IA, respi rator y speci men Covid-19 (ref: neg) negati ve Not Available [facility] [address], [place], [address], 07/04/2022 11:44:48 07/04/19 23 07/04/2022 rapid SARS CoV 2 Ag, QL IA, respi rator y speci men Control Visual ized/V alid Not Available [facility] [address], [place], [address], 07/04/2022 11:44:48 07/04/19 23 07/04/2022 rapid SARS CoV 2 Ag, QL IA, respi rator y speci men Location [facility], [facility], [address], [place] [address], [id number] Not Available [facility] [address], [place], [address], 07/04/2022 11:44:48 05/08/20 22 05/08/2022 XR, chest , 2 view XRAY CHEST 2 VIEW FINDIN GS: There is mild cardio megaly . The medias tinal struct ures are within normal limits in size. The lungs demons trate no consol idatio n, masses or effusi ons. There is no eviden ce of signif icant pneumo thorax in this portab le exam. Osseou s struct ures are show no acute abnorm ality. No foreig n body. CONCLU EJ: Mild cardio megaly . No focal airspa ce diseas e. ELECTR ONICAL LY SIGNED BY MARTIN Leone M.D. 2021 11:53: 41 AM EST. XRAY CHEST 2 VIEW Result s: There is mild cardio megaly . The medias tinal struct ures are within normal limits in size. The lungs demons trate no consol idatio n, masses or effusi ons. There is no eviden ce of signif icant pneumo thorax in this portab le exam. Osseou s struct ures are show no acute abnorm ality. No foreig n body. Conclu ej: Mild cardio megaly . No focal airspa ce diseas e. Electr onical ly signed by MARTIN Leone M.D. 2021 11:53: 41 AM EST. [email or web address] [employer] [address] [facility] [facility] [address], [place], [address], 08/06/2022 12:49:04 10/08/19 23 10/07/2022 XR, pelvi s, 3 or more view PELVIS COMPLE TE, MIN 3V FINDIN GS: The study is techni lauren diffic ult due to patien t's body habitu s, with signif icant soft tissue attenu ation. Bony ossifi cation patter n is normal . Bilate ral sacroi liac joints and hip joints show modest degene rative change s. Iliac wings and pubic rami are intact . No defini te pelvic or hip fractu re seen. CONCLU EJ: Modest osteoa rthrit is, but no defini te pelvic or hip fractu re. ELECTR ONICAL LY SIGNED BY VON NGUYEN M.D. 023 10:47: 33 AM EDT. [email or web address] [employer] [address] [address], [place], [address], 10/07/2022 18:32:41 10/08/1910/07/2022 hip uni W or w/o pelvi s 1 view HIP UNI W OR W/O PELVIS 1 VIEW, RIGHT FINDIN GS: The study is techni lauren diffic ult due to patien t's body habitu s, with signif icant soft tissue attenu ation. There is prosth etic right femora l head in proper alignm ent with respec t to the acetab ulum. There is no fractu re or acute disloc ation. The prosth esis is proper ly situat ed withou t any loosen ing. Pubic rami are normal . CONCLU EJ: Intact right hip arthro plasty . If there is concer n for absces s or cellul itis, CT is recomm ended for furthe r evalua tion. ELECTR ONICAL LY SIGNED BY VON NGUYEN M.D. 023 10:47: 33 AM EDT. PELVIS COMPLE TE, MIN 3V Result s: The study is techni lauren diffic ult due to patien t's body habitu s, with signif icant soft tissue attenu ation. Bony ossifi cation patter n is normal . Bilate ral sacroi liac joints and hip joints show modest degene rative change s. Iliac wings and pubic rami are intact . No defini te pelvic or hip fractu re seen. Conclu ej: Modest osteoa rthrit is, but no defini te pelvic or hip fractu re. Electr onical ly signed by VON NGUYEN M.D. 023 10:47: 33 AM EDT. HIP UNI W OR W/O PELVIS 1 VIEW, RIGHT Result s: The study is techni lauren diffic ult due to patien t's body habitu s, with signif icant soft tissue attenu ation. There is prosth etic right femora l head in proper alignm ent with respec t to the acetab ulum. There is no fractu re or acute disloc ation. The prosth esis is proper ly situat ed withou t any loosen ing. Pubic rami are normal . Conclu ej: Intact right hip arthro plasty . If there is concer n for absces s or cellul itis, CT is recomm ended for furthe r evalua tion. Electr onical ly signed by VON NGUYEN M.D. 023 10:47: 33 AM EDT. [email or web address] [facility] [address] [facility] [address], [place], [address], 10/07/2022 18:32:16 Result Notes None recorded. Procedures Surgical History Date Name Laterality Status Provider Name and Address Organization Details Recorded Time 07/04/19 23 Nebulizer treatment - completed FADI Clemens [address] [place], [address], [place] [facility] 07/04/2022 12:38:06 05/07/20 22 Nebulizer treatment - [facility] completed FADI NASCIMENTO [address], [place], [address], [place] [facility] 05/07/2022 10:29:59 total replacement of right hip joint completed FADI Young [address], [place], [address], [place] [facility] 10/04/2021 10:27:45 Gastric bypass for obesity completed FADI Young [address], [place], [address], [place] [facility] 10/04/2021 10:28:00 bilateral extraction of cataracts completed FADI Young [address], [place], [address], [place] [facility] 10/04/2021 10:28:07 biopsy of breast completed FADI Young [address], [place], [address], [place] [facility] 10/04/2021 10:28:14 tonsilectomy/a denoids completed FADI Young [address], [place], [address], [place] [facility] 10/04/2021 10:29:26 Imaging Results Imaging Date Name Status LastModified by Organiz ation Details LastModified Time 05/08/2022 XR, chest, 2 view completed [employer] [address] [facility] [address], [place], [address], 08/06/2022 12:49:04 10/07/2022 XR, pelvis, 3 or more view completed [employer] [address], [place], [address], 10/07/2022 18:32:41 10/07/2022 hip uni W or w/o pelvis 1 view completed [employer] [address], [place], [address], 10/07/2022 18:32:16 Procedure Notes None recorded. Medical Equipment None Reported. Allergies Allergen ID Allergen Name Allergen Category Reaction Reaction Severity Criticality Documentation Date Start Date Code Code System Note Provider Name and Address Organization Details Recorded Time 228812 Non-stero idal anti-infl ammatory agent (product) medicatio n Not available Not available Not available 10/04/2021 42427 005 SNOMED FADI Santiago [address], [place], [address], [place] [facility] 2 10:52:20 [id number] sucralfat e medicatio n Not available Not available Not available 10/06/2022 41619 RxNorm Holliejunaid Jiang, JEAN [address], [place], [address], [place] [facility] 3 12:01:45 Medications Name Sig Start Date Stop Date Status Note LastModified by Organization Details LastModified Time metformin 500 mg tablet TAKE 1 TABLET BY MOUTH EVERY NIGHT AT BEDTIME. active Not Available Not Available No t Available primidone 50 mg tablet TAKE 1 TABLET BY MOUTH EVERY DAY FOR 90 DAYS active Not Available Not Available No t Available prednisone 10 mg tablet 60 mg PO administe red on scene. Time administe red: 12:37pm 10/06 completed Not Available Not Available Not Available doxycycline hyclate 100 mg capsule TAKE 1 CAPSULE BY MOUTH TWICE A DAY WITH MEALS FOR 7 DAYS active Not Available Not Available No t Available cefpodoxime 200 mg tablet TAKE 1 TABLET BY MOUTH TWICE DAILY WITH A MEAL/FOOD . 10/06 completed Not Available Not Available Not Available azithromyci n 250 mg tablet TAKE 2 TABLETS BY MOUTH TODAY, THEN TAKE 1 TABLET DAILY FOR 4 DAYS 07/04 completed Not Available Not Available Not Available prednisone 20 mg tablet TAKE 2 TABLETS BY MOUTH EVERY DAY DIRECTED FOR 5 DAYS 10/06 completed Not Available Not Available Not Available propranolol ER 60 mg capsule,24 hr,extended release TAKE 1 CAPSULE BY MOUTH ONCE DAILY. active Not Available Not Available No t Available moxifloxaci n 400 mg tablet TAKE 1 TABLET BY MOUTH EVERY DAY FOR 7 DAYS 01/03 completed Not Available Not Available Not Available oxycodone-a cetaminophe n 5 mg-325 mg tablet TAKE 1 TABLET BY MOUTH 2 TIMES DAILY NEEDED FOR PAIN X15 DAYS 10/06 completed Not Available Not Available Not Available amoxicillin 875 mg tablet TAKE 1 TABLET BY MOUTH TWICE A DAY FOR 7 DAYS 01/03 completed Not Available Not Available Not Available lorazepam 0.5 mg tablet TAKE 1/2 TO 1 TABLET 2 TIMES A DAY BY MOUTH NEEDED active Not Available Not Available No t Available cephalexin 500 mg capsule TAKE 1 CAPSULE BY MOUTH TWICE A DAY 07/04 completed Not Available Not Available Not Available pantoprazol e 40 mg tablet,santana yed release active Not Available Not Available Not Available nystatin 100,000 unit/gram topical cream APPLY TO AFFECTED AREA TWICE A DAY 05/07 completed Not Available Not Available Not Available hydroxyzine HCl 25 mg tablet TAKE 1 TO 2 TABLETS BY MOUTH AT BEDTIME NEEDED active Not Available Not Available No t Available hydrochloro thiazide 25 mg tablet TAKE 1 TABLET BY MOUTH EVERY DAY active Not Available Not Available No t Available furosemide 20 mg tablet TAKE 1 TABLET BY MOUTH EVERY DAY IN THE MORNING FOR 7 DAYS 07/04 completed Not Available Not Available Not Available albuterol sulfate HFA 90 mcg/actuati on aerosol inhaler INHALE 1 PUFF 4 TIMES A DAY NEEDED FOR SHORTNESS OF BREATH OR WHEEZING FOR 30 DAYS active Not Available Not Available No t Available doxycycline hyclate 100 mg tablet TAKE 1 TAB ORALLY 2 TIMES A DAY 07/04 completed Not Available Not Available Not Available ipratropium bromide 0.02 % solution for inhalation Atrovent 0.5 mg solution nebulized on scene. Time administe red:11:50 am 2022 active Not Available Not Available Not Avai lable amoxicillin 875 mg-potassiu m clavulanate 125 mg tablet TAKE 1 TABLET BY MOUTH EVERY 12 HOURS FOR 5 DAYS 07/04 completed Not Available Not Available Not Available escitalopra m 20 mg tablet active Not Available Not Available Not Available aripiprazol e 10 mg tablet TAKE 1 TABLET BY MOUTH EVERY DAY IN THE MORNING active Not Available Not Available No t Available bupropion HCl XL 300 mg 24 hr tablet, extended release active Not Available Not Available Not Available bupropion HCl XL 150 mg 24 hr tablet, extended release TAKE 1 TABLET BY MOUTH IN THE MORNING EVERY DAY WITH THE 300MG TABLETS active Not Available Not Available No t Available albuterol sulfate concentrate 2.5 mg/0.5 mL solution for nebulizatio n Albuterol 2.5 mg solution nebulized on scene. Time administe red:11:50 am 2022 active Not Available Not Available Not Avai lable magnesium active Not Available Not Jo Ann ilable Not Available Vitamin C active Not Available Not Jo Ann ilable Not Available iron active Not Available Not Availa ble Not Available Vitamin D active Not Available Not Jo Ann ilable Not Available GaviLyte-G 236 gram-22.74 gram-6.74 gram-5.86 gram oral solution TAKE 240ML BY MOUTH EVERY 10MIN UNTIL FECAL EFFLUENT IS CLEAR DONT EXCEED 2000ML active Not Available Not Available No t Available Vitals Date Recorded Respiratory rate Body temperature Oxygen saturation Oxygen saturation in Arterial blood by Pulse oximetry Heart rate Systolic blood pressure Diastolic blood pressure Provider Name and Address Organization Details Last Updated DateTime 2 18 /min 98.4 [degF] 95 % 95 % 60 /min 108 mm[Hg] 62 mm[Hg] Not Available [facility] 10:29:44 Date Recorded Body temperature Oxygen saturation Oxygen saturation in Arterial blood by Pulse oximetry Respiratory rate Heart rate Systolic blood pressure Diastolic blood pressure Provider Name and Address Organization Details Last Updated DateTime 2 98.3 [degF] 98 % 98 % 16 /min 82 /min 126 mm[Hg] 74 mm[Hg] Not Available [facility] 12:32:06 Date Recorded Body temperature Respiratory rate Oxygen saturation Oxygen saturation in Arterial blood by Pulse oximetry Heart rate Heart rate Oxygen saturation Oxygen saturation in Arterial blood by Pulse oximetry Systolic blood pressure Diastolic blood pressure Provider Name and Address Organization Details Last Updated DateTime 2 97.8 [degF] 26 /min 95 % 95 % 84 /min 68 /min 96 % 96 % 110 mm[Hg] 72 mm[Hg] Not Available [facility] 09:48:07 Date Recorded Respiratory rate Provider Name a nd Address Organization Details Last Updated DateTime 05/07/2022 20 /min FADI NASCIMENTO [address], [place], [address], [place] [facility] 05/07/2022 10:29:35 Date Recorded Body temperature Respiratory rate Oxygen saturation Oxygen saturation in Arterial blood by Pulse oximetry Heart rate Systolic blood pressure Diastolic blood pressure Provider Name and Address Organization Details Last Updated DateTime 3 97.5 [degF] 18 /min 95 % 95 % 90 /min 128 mm[Hg] 78 mm[Hg] Not Available [facility] 3 11:37:17 Date Recorded Oxygen saturation Oxygen saturation in Arterial blood by Pulse oximetry Body temperature Respiratory rate Heart rate Systolic blood pressure Diastolic blood pressure Provider Name and Address Organization Details Last Updated DateTime 3 97 % 97 % 98.2 [degF] 18 /min 65 /min 124 mm[Hg] 68 mm[Hg] Not Available [facility] 12:06:44 Social History Question Answer Notes LastModified by Organizat ion Details LastModified Time Tobacco Smoking Status Former Smoker FADI Young [address] [place], [address], [place] [facility] 10/04/2021 10:29:06 Do You Have An Advance Directive? Yes [email or web address] Information not available 10/06/2022 What Is Your Level Of Alcohol Consumption? None Information not available 10/04/2021 What Is Your Code Status? Full Code [email or web address] Information not available 10/06/2022 Within The Past 12 Months, Has It Happened That The Food You Bought Just Didn't Last And You Didn't Have Money To Get More. Never True [email or web address] Information not available 10/06/2022 Within The Past 12 Months, Have You Worried That Your Food Would Run Out Before You Got Money To Buy More. Never True [email or web address] Information not available 10/06/2022 Fall Risk: Do You Feel Unsteady When Standing Or Walking? No [email or web address] Information not available 10/06/2022 Excessive Alcohol Or Drug Use No [email or web address] Information not available 10/06/2022 Does This Patient Have A PCP? Yes [email or web address] Information not available 10/06/2022 ADL: Do You Need Help With Daily Activities Such As Bathing, Preparing Meals, Dressing, Or Cleaning? No [email or web address] Information not available 10/06/2022 What Is Your Current Pack Years? 10-19packye ars Information not available 10/06/2022 Do You Use Any Illicit Or Recreational Drugs? No Information not available 10/04/2021 Do You Or Have You Ever Used Any Other Forms Of Tobacco Or Nicotine? No Information not available 10/04/2021 Sex: Unknown Functional Status None recorded. Mental Status None recorded. Family History Relationship Description Onset Age of this Age Resolved Age Notes LastModified by Organization Details LastModified Time Sister Malignant tumor of colon [email or web address] Not available 2021 10:28:51 Medical History Condition Response Diabetes N Coronary Artery Disease N CHF N Parkinson's Disease N Cancer N Stroke N Dementia N Hypothyroidism N COPD N Asthma N Depression Y High Cholesterol N Rheumatoid Arthritis N Pulmonary Embolism N Hypertension Y A-fib N Osteoporosis N Kidney Disease N Gynecological HistoryNo gynecological history recorded. Obstetrics History GPAL:G 0 P 0 0 0 0 Past Encounters Encounter ID Performer Location Encounter Start Date Encounter Closed Date Diagnosis/Indication Diagnosis SNOMED-CT Code Diagnosis ICD10 Code Diagnosis Note [id number] F[facility] Arevalo [facility] [address] [place] [address] 10/04/2021 09:57:17 10/09/2021 09:37:20 Wound cellulitis 732307524 L03.90 [id number] ASIF LOVELL NP [facility] [address] [place] [address] 01/03/2022 12:26:14 01/05/2022 09:24:30 Candidal intertrigo 705652677 B37.2 [id number] [facility] NAS[facility]ENTO [facility] [address] [place] [address] 05/07/2022 09:43:13 05/10/2022 20:18:20 Community acquired pneumonia [id number] J18.9 Status of condition: {{Acute* C hronic Sta ble Worsen ing Uncont rolled Cri tical: Warrants escalation to ED. Undete rmined: Unclear staging of condition. Needs further evaluation and management by PCP and/or Specialist }}. Testing/Re sults:CXR Discussion :Likely pneumonia at time of visit. Considered treatment alone however pt is having difficulty breathing with exertion. Will eval further and confirm pneumonia to avoid missing ddx such as CHF, effusion, mass etc. Plan, Medication Management & Follow-up recommenda tions:Will start augmentin and zpack to cover for suspected pneumonia. reviewed supportive care and follow up precaution s Bilateral lower limb edema 731642259 R60.0 Status of condition: {{Acute Ch ronic* Sta ble Worsen ing Uncont rolled Cri tical: Warrants escalation to ED. Undete rmined: Unclear staging of condition. Needs further evaluation and management by PCP and/or Specialist }}. Testing/Re sults:none Discussion :ddx includes CHF, PVD, DVT Plan, Medication Management & Follow-up recommenda tions:Cont inue eval and work up with pcp [id number] F[facility] Clemens [facility] [address] [place] [address] 07/04/2022 11:34:05 07/06/2022 08:32:25 Acute bronchitis 82009038 J20.9 Essential hypertension [id number] I10 [id number] Hollie Jiang NP [facility] [address] [place] [address] 10/06/2022 11:52:31 10/08/2022 18:44:12 Wound cellulitis [id number] L03.90 Status of condition: {{Acute Ex acerbation /Acute on chronic* C hronic Sta ble Worsen ing/Progre ssion Unco ntrolled C ritical: Warrants escalation to ED. Undete rmined: Unclear staging of condition. Needs further evaluation and management by PCP and/or Specialist }}. Testing/Re sults: Discussion :Low likelihood of infection progressin g to bone but possible. Will obtain XR to rule out. Pt instructed to call ortho doc that completed debridemen t last year today for immediate apt. Pt has significan t tunneling of wound and needs wound care sooner than October 16, 2022. Attempted myself to call wound care for sooner apt several times message left. will start doxycyline to cover purulent drainage staph/ mrsa with instructio ns for patient to call for follow up red. Plan, Medication Management & Follow-up recommenda tions:Doxy cyline twice daily for 7 days, take with food avoid sunXR to rule out osteomyeli tisCall ortho today for red aptED with fevers, redness, pain of the right hip No emergent indication s for escalation based off vital sign review and exam. Handwritte n discharge papers completed and provided to patient. All questions answered. Health Concerns Section Related Observation LastModified by Organization Detai ls LastModified Time None Recorded Concern Status LastModified by Organization Details LastModified Time None Recorded Advance Directives Directive Y: Payers Encounter Date Sequence Insurance Name Policy Number Policy Hall Covered Member ID Hall Member ID Guarantor Name 10/04/2021 2 [place] [facility] Mayra Hernandez [place] [id number] [facility] 10/04/2021 1 [facility] (MEDICARE REPLACEMENT/A DVANTAGE - HMO) [id number] [place] [address] [id number] [facility] 01/03/2022 2 [place] [facility] Mayra Hernandez [place] [id number] [facility] 01/03/2022 1 [facility] (MEDICARE REPLACEMENT/A DVANTAGE - PPO) [id number] [place] [address] [id number] [facility] 05/07/2022 2 [place] [facility] Mayra Hernandez [place] [id number] [facility] 05/07/2022 1 [facility] (MEDICARE REPLACEMENT/A DVANTAGE - PPO) [id number] [place] [address] [id number] [facility] 07/04/2022 2 [place] [facility] Mayra Hernandez [place] [id number] [facility] 07/04/2022 1 [facility] (MEDICARE REPLACEMENT/A DVANTAGE - PPO) [id number] [place] [address] [id number] [facility] 10/06/2022 2 [place] [facility] Mayra Hernandez [place] [id number] [facility] 10/06/2022 1 [facility] (MEDICARE REPLACEMENT/A DVANTAGE - PPO) [id number] [place] [address] [id number] [facility] Notes Date Note Type Note Provider Name and Address Organization Details Recorded Time 10/04/2021 text/html 75 YO F new to D H and new to providerShe is being seen today for some Rt hip redness, it has been going on for months on and offShe thinks it started oozing now and that is why she is requesting it get lookedShe reports the drainage is clear, no exudative drainageNo other skin issues, no hx DM, no PVDNo fever, chills, non-painful except when she touches it.She does have hx of operation to her hip on this side but this was 7 years ago, nothing recentShe denies any cp, lightheadedness/d izziness, weakness, numbness/tingling , hip pain, decreased ROM, fever/chills. There are no other reported sx's today.Of note does reports she went to [facility] ER last night to get this looked at and she left after the wait was going to be 10+ hours, this was [facility] [place]. FADI Young [address], [place], [address], [place] [facility] 10/04/2021 11:19:03 01/03/2022 text/html 76 yo female known to and new to this provider with PMH of Depression and left Hip replacement with recent debridement of a wound over the left hip who is being seen today for redness under her lower abdomen fold x 3 days.She reports a history of this in the past.She states she was an outdoor craft fair a few days ago when it was hot and she was sweating.She has been using an antifungal cream over the counter and Vagisil with no improvement.No recent antibiotics.She reports area is very itchy.No drainage.Denies any fever or chills.Denies any pain.Reports eating and drinking well. ASIF LOVELL NP [address], [place], [address], [place] [facility] 01/03/2022 13:03:27 05/07/2022 text/html 76 yo female wit h cough, congestion, fatigue, shortness of breath, and not feeling well for the past 10 days. Pt was diagnosed with flu and bronchitis five days ago. was given prednisone and albuterol inhaler but is feeling worse now. No known fever. No chest pain. Has ongoing LE swelling since 01/2022. No recent weight gain. CXR at ER on 05/02/2022 show right basilar atelectasis, other nicole normal. BNP was 89. EKG showed RBBB. FADI NASCIMENTO [address], [place], [address], [place] [facility] 05/07/2022 10:38:42 07/04/2022 text/html 76 y/o female known to DH new to provider with hx of HTN, depression, lymphedema. pt reports she has been scheduled to see pulmonology in August as her pcp suspects she may have COPD. pt reports on 07/02 she developed cough, wheezing and sob. cough is productive at times with yellow sputum. she states cough is worse at night and with lots of talking or laughing or deep breaths, than can trigger coughing fits too. she has runny nose also with clear/ yellow drainage. pt is a former smoker. she reports she had a similar episode back in april she was tx for bronchitis. states she does not want to wait like she did before as that caused her breathing to get bad. she denies any fever or known sick contacts. no prior hx of covid. she denies cp, dizziness, weakness, [place], body aches. no skin rash. no abdominal pain, nausea, vomiting or diarrhea. states in the past she has done nebulizer txs and that has been very helpful. she has been using her rescue inhaler but does not feel it has been helping. FADI Clemens [address], [place], [address], [place] [facility] 07/04/2022 12:45:03 10/06/2022 text/html R hip replacemen t 7 years ago and at that time had seroma where had to have drains due to fluid. R hip with yellow fluid leaking with odor. Area is not painful. Sx started 5 days ago. Ambulatory with steady gait. History of seroma in similar spot, last year had same issue and needed surgical debridement. Is covering the area due to drainage. No recent abx. Wound care apt is on October 16, 2022. Denies fevers, pain, difficulty with ambulation, surrounding erythema or edema. Hollie Jiang NP [address], [place], [address], [place] [facility] 10/06/2022 12:38:29 OBGyn Episode No OBEpisode recorded.
== END 2024-06-23 08:49 | disposition home or self-care (01) ==
LOC: HO.MAMMO 08:48
PROVIDERS: PCP Internal Medicine; Visit Provider Surgery
DX: R92.8 Other abnormal and inconclusive findings on diagnostic imaging of breast (principal)
CPT/HCPCS: 77061; 77065

== ENCOUNTER → 2024-06-23 09:00 | Outpatient (BNV) | payer MEDICARE, MEDICAID, SELFPAY | PROVIDERS: PCP Internal Medicine; Visit Provider Internal Medicine | DX: R92.1 Mammographic calcification found on diagnostic imaging of breast (principal) | CPT/HCPCS: 77065; G0279 ==

== ENCOUNTER 2024-06-30 09:00 | Outpatient (AMB) | payer MEDICARE, MEDICAID, SELFPAY ==
--- NOTE | 2024-06-30 09:10 | MHC.OFFVIS ---
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 She endorses pain only with lifting her right leg. She does not feel any improvement after the injection Prior: Patient presents back to the office today for follow-up, review a recent x-ray X-ray reviewed, results as per below Patient continues with anterior right hip pain with movement, leg raise, walking. No pain at rest. She has completed physical therapy with no improvement Prior: Mayra is a very pleasant 78-year-old female who presents to the office today for evaluation management of her right hip pain. Past medical history significant for osteoporosis, kyphosis, right hip arthroplasty, dysphagia, anemia, tubular adenoma of the colon, mitral annular calcification, lymphedema, obesity, right bundle branch block, nocturnal hypoxemia, COPD, GERD, depression and hypertension Patient has been suffering with this pain for approximately 1 year. She is status post right hip replacement approximately 10 years ago Denies inciting injury, fall, trauma 1 year ago she was re-evaluated by orthopedics, pain improved on its own. She states she had an x-ray at that time with no acute findings. Pain returned approximately 3 months ago without inciting injury. Pain is worse with movement and walking. She ambulates with use of a cane. Pain today is rated as a 5/10 Pain is slightly improved with rest and Tylenol. Endorses anterior right hip pain with some radiation to the groin and right thigh. Patient is unable to take nonsteroidal anti-inflammatory medications due to history of gastric bypass. She has not attempted physical therapy, acupuncture or massage In terms of muscle damage condition is described as dull, sore, tight, squeezing, pulling Pain is negatively impacting patient's enjoyment of life, general activity, ambulation, activity, ability to perform activities of daily living Denies current use of anticoagulants Denies implantable devices, pacemaker defibrillator [facility] Medical History SOULEYMANE (obstructive sleep apnea) Wound, open, hip or thigh with complication Encounter for general adult medical examination with abnormal findings Hip pain, right Preoperative cardiovascular examination Change in bowel movement Traumatic seroma of right thigh Postprocedural seroma of skin and subcutaneous tissue following other procedure Open wound of right hip and thigh Peripheral vascular disease Right rib fracture Menopause Pain management Pain management contract agreement Open wound of right lower leg with complication Shortness of breath Cough Edema Influenza A H1N1 infection Hospital discharge follow-up Cellulitis of right leg Varicose veins of right lower extremity with inflammation Enterococcus faecalis infection Abscess Hip pain, right Obesity Lymphedema Morbid obesity due to excess calories Pre-op evaluation Colon cancer screening Medicare annual wellness visit, subsequent Family history of anesthesia complication Back pain Arthritis Renal calculi Post-influenza syndrome Tremor Peripheral vascular disease Right bundle branch block (RBBB) Aortic valve calcification Mitral annular calcification Nocturnal hypoxemia COPD (chronic obstructive pulmonary disease) Restrictive lung disease Stasis edema of both lower extremities Nail fungus Chronic GERD Depression, major, recurrent Hypertension, essential Surgical History History of excision of lesion (10/20/23) History of total hip arthroplasty S/P gastric bypass History of surgery on lower extremity (01/25/23) History of surgery H/O colonoscopy History of cataract extraction History of bilateral tubal ligation History of tonsillectomy Family History Father No problems noted. Mother Alzheimer's disease Maternal Grandmother Cancer Maternal Grandfather No problems noted. Paternal Grandfather No problems noted. Paternal Grandmother No problems noted. Maternal Aunt Cancer Sister Colon cancer Son No problems noted. Daughter No problems noted. Social History Household Members: Children Household Members Other:: daughter Housing: House Housing Other:: mobile home Are you a primary field care coordinator to a significant other at home: No Do you presently have visiting nurse or other home services: No Alcohol intake: never Patient Tobacco Use Status: Former Tobacco user Tobacco use type: Cigarette Years Smoked: 40 e-Cigarette/Vaping Use: Currently Using Second Hand Smoke Exposure: No Advance Directives Date on File: 03/13/15 service: No Current occupational status: retired and other Current occupation: right handed Cognitive needs: No Hearing needs: No Vision needs: No Female Reproductive History Menstrual Age of Menarche: 13 Review of Systems Const All systems reviewed & are unremarkable except as noted in HPI and below Physical Exam Vital Signs: Last Vital Signs Pulse 77 06/30/24 09:16 BP 175/76 H 06/30/24 09:16 Pulse Ox 98 06/30/24 09:16 Oxygen Delivery Method Room Air 06/30/24 09:16 BMI result Body Mass Index 34.1 General: awake, alert, oriented. Answers questions appropriately. Fully engaged in examination. Skin: warm, dry, intact HEENT: Normocephalic. Hearing intact. Cardiac: External chest normal in appearance. Respiratory: No cough, audible wheezing or stridor. Abdomen: without gross distension. MS: No obvious swelling or deformities. Right hip: Pain anteriorly with seated leg raise. Minimal discomfort with internal/external rotation. Neurological: Oriented to person, place, time and situation. Thought process intact. Ambulates with the use of a cane Psychiatric: Appropriate mood and affect. Good judgment and insight. Results Reviewed Results Reviewed: 04/20/24 XR/XR hip RT min 2V FINDINGS: Total right hip arthroplasty in expected anatomic alignment. No hardware or osseous fracture. No dislocation. No concerning lytic or blastic osseous lesion. Cortical irregularity at the proximal head, unchanged and consistent with postsurgical change versus a remote, healed fracture. No concerning lytic or blastic osseous lesion. Atherosclerotic calcifications. IMPRESSION: 1. Total right hip arthroplasty without evidence of complication. 2. No acute osseous abnormality. Assessment & Plan Assessment & Plan (1) Hip pain, right: Code(s): M25.551 - Pain in right hip Category: Medical (2) Greater trochanteric pain syndrome: Code(s): M25.559 - Pain in unspecified hip Category: Medical (3) S/P total right hip arthroplasty: Code(s): Z96.641 - Presence of right artificial hip joint Category: Surgical Plan Patient presented to the office today for follow-up, three weeks status post right greater trochanteric injection She reports no improvement in pain, function or mobility since the injection. Patient has exhausted conservative therapy including PT, home exercise program, topical nonsteroidal anti-inflammatory medication Referral placed to physiatry. All questions and concerns were answered, patient agrees with plan. Follow up after physiatry eval, sooner if needed Orders: Referrals Physiatry Referral M25.551 - Pain in right hip, M25.559 - Pain in unspecified hip Coding Level of Care Code Est Pt Level 3 (36771) Complex EM visit Add On G2211 Diagnoses Hip pain, right M25.551 Greater trochanteric pain syndrome M25.559 S/P total right hip arthroplasty Z96.641
[2024-06-30 09:16] VITALS: BP 175/76; PULSE 77; O2SAT 98; BMI 34.1
== END 2024-06-30 09:31 | disposition home or self-care (01) ==
PROVIDERS: PCP Internal Medicine; Visit Provider Registered Nurse Emergency
DX: M25.551 Pain in right hip (principal); Z96.641 Presence of right artificial hip joint
CPT/HCPCS: 99213; G2211

== ENCOUNTER → 2024-06-30 09:00 | Outpatient (BNVA) | payer MEDICARE, MEDICAID, SELFPAY | PROVIDERS: PCP Internal Medicine; Visit Provider Registered Nurse Emergency | DX: M25.551 Pain in right hip (principal); Z96.641 Presence of right artificial hip joint | CPT/HCPCS: 99212 ==

== ENCOUNTER 2024-07-13 08:15 | Outpatient (AMB) | payer MEDICARE, MEDICAID, SELFPAY ==
[2024-07-13 08:20] VITALS: BMI 33.7
--- NOTE | 2024-07-13 08:20 | MHC.OFFVIS ---
Vital Signs 07/13/24 08:20 Height 5 ft Weight 172 lb 6 oz BMI 33.7 Intake Visit Reasons: wound on hip reopening and leaking Intake Note: Patient is seen in office for wound check, reopening and leaking of the hip lesion. Pt c/o: reports she is here for a wound check, the hip lesion is reopening and leaking. 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: No Accompanied by: Self / Same As Patient Allergies sucralfate [Carafate] Allergy (Intermediate, Verified 07/13/24 08:27) hives NSAIDS (Non-Steroidal Anti-Inflamma Adverse Reaction (Intermediate, Verified 07/13/24 08:27) cannot take due to gastric bypass history Medication List - Last Reconciled 07/13/24 by Vini Mosquera MD [2 inch cloth tape As directed] [4x4 sterile gauze pads As directed] alendronate (Fosamax) 70 mg PO QWEEK 90 days aripiprazole 10 mg PO QAM ascorbic acid (vitamin C) 1,000 mg PO QAM bisacodyl (Dulcolax (bisacodyl)) 10 mg (2 x 5 mg) PO BEDTIME 90 days bupropion HCl XL (Wellbutrin XL) 300 mg PO QAM bupropion HCl XL 150 mg PO QAM calcium rhc-[id number]-[id number]-Zn-helicopter utility 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 She initially had some pain and redness in the skin but now the wound has reopened. She reports clear drainage from the wound and needs to change the dressings at least twice daily. She denies any fever or chills. The pain is improved. She denies any fever or chills. [facility] Medical History SOULEYMANE (obstructive sleep apnea) Wound, open, hip or thigh with complication Encounter for general adult medical examination with abnormal findings Hip pain, right Preoperative cardiovascular examination Change in bowel movement Traumatic seroma of right thigh Postprocedural seroma of skin and subcutaneous tissue following other procedure Open wound of right hip and thigh Peripheral vascular disease Right rib fracture Menopause Pain management Pain management contract agreement Open wound of right lower leg with complication Shortness of breath Cough Edema Influenza A H1N1 infection Hospital discharge follow-up Cellulitis of right leg Varicose veins of right lower extremity with inflammation Enterococcus faecalis infection Abscess Hip pain, right Obesity Lymphedema Morbid obesity due to excess calories Pre-op evaluation Colon cancer screening Medicare annual wellness visit, subsequent Family history of anesthesia complication Back pain Arthritis Renal calculi Post-influenza syndrome Tremor Peripheral vascular disease Right bundle branch block (RBBB) Aortic valve calcification Mitral annular calcification Nocturnal hypoxemia COPD (chronic obstructive pulmonary disease) Restrictive lung disease Stasis edema of both lower extremities Nail fungus Chronic GERD Depression, major, recurrent Hypertension, essential Surgical History History of excision of lesion (10/20/23) History of total hip arthroplasty S/P gastric bypass History of surgery on lower extremity (01/25/23) History of surgery H/O colonoscopy History of cataract extraction History of bilateral tubal ligation History of tonsillectomy Family History Father No problems noted. Mother Alzheimer's disease Maternal Grandmother Cancer Maternal Grandfather No problems noted. Paternal Grandfather No problems noted. Paternal Grandmother No problems noted. Maternal Aunt Cancer Sister Colon cancer Son No problems noted. Daughter No problems noted. Social History Household Members: Children Household Members Other:: daughter Housing: House Housing Other:: mobile home Are you a primary healthcare manager to a significant other at home: No Do you presently have visiting nurse or other home services: No Alcohol intake: never Patient Tobacco Use Status: Former Tobacco user Tobacco use type: Cigarette Years Smoked: 40 e-Cigarette/Vaping Use: Currently Using Second Hand Smoke Exposure: No Advance Directives Date on File: 03/13/15 service: No Current occupational status: retired and other Current occupation: right handed Cognitive needs: No Hearing needs: No Vision needs: No Female Reproductive History Menstrual Age of Menarche: 13 Review of Systems Const All systems reviewed & are unremarkable except as noted in HPI and below Physical Exam Vital Signs: BMI result Body Mass Index 33.7 Const General: no acute distress Nutritional Appearance: well nourished Orientation/consciousness: patient oriented x3 Resp Effort & Inspection: normal respiratory effort, no audible wheezes, no cough and no respiratory distress Skin Other: Right hip posteriorly is an open wound measuring approximately 1 cm in diameter with a depth of 3 cm. Wound is draining clear fluid without any surrounding erythema or undrained abscess appreciated. Neuro General: patient oriented x3 Assessment & Plan Assessment & Plan (1) Unspecified open wound, right hip, initial encounter: Code(s): S71.001A - Unspecified open wound, right hip, initial encounter Category: Medical Plan Patient again returns with an open wound of the right hip. This was previously widely excised treated with a wound VAC with good wound healing. Unfortunately the wound has reopened once again. I suggested evaluation by wound care; she expressed understanding and agrees with the plan. Orders: Referrals Wound Care Referral S71.001A - Unspecified open wound, right hip, initial encounter Coding Level of Care Code Est Pt Level 3 (09481) Diagnoses Unspecified open wound, right hip, initial encounter S71.001A
--- OUTSIDE RECORDS SUMMARY | 2024-07-13 08:34 | XMS_ITS | Data Portability ---
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 Exam: Vitals: VSS and afebrile Constitutional: 74 [...] scheduled Time On Scene with Patient: 00:42:25 Not available 05/07/2022 10:35:29 07/04/2022 07/04/2022 Brief [...] after care of this [facility]. [email or web address] Not available 07/04/2022 12:44:13 10/06/2022 10/06/2022 Brief [...] to patient. All questions answered. wound care [phone] - wound care states that they have no apts sooner than but will place pt on cancellation list [email or web address] Not available 10/06/2022 12:38:07 Plan of Treatment Reminders Order Date Submit Date Provider Last Modified By Organization Details Last Modified Time Details Appointments None recorded. Lab rapid SARS CoV 2 Ag, QL IA, respiratory specimen 2022 023 [email or web address] 5 [facility], [address] [place] [address], [id number], 12:38:31 Referral None recorded. Procedures None recorded. Surgeries None recorded. Imaging XR, pelvis, 3 or more view - rule out osteomyelit is. tunneling wound over prosthetic hip joint 2022 023 [facility] ([facility]), [address] [facility], [place], [address], 3 11:01:28 XR, chest, 2 view 2021 022 [facility] [address], [place], [address], 2 11:58:06 Medication Orders doxycycline hyclate 100 mg capsule 2022 023 [facility]armacy #0693, [address] [place], [address], 3 12:35:07 albuterol sulfate concentrate 2.5 mg/0.5 mL solution for nebulizatio n 2022 023 [email or web address] 5 [facility]/Pharmacy #0693, [address] [place], [address], 3 12:38:23 ipratropium bromide 0.02 % solution for inhalation 2022 023 [email or web address] 5 [facility]/Pharmacy #0693, [address] [place], [address], 3 12:38:34 prednisone 20 mg tablet 2022 023 [email or web address] [facility]0693, [address] [place], [address], 3 12:02:14 prednisone 10 mg tablet 2022 023 maury [facility]/Pharmacy #0693, [address] [place], [address], 3 12:02:10 amoxicillin 875 mg-potassiu m clavulanate 125 mg tablet 2021 022 [email or web address] 5 [facility]/Pharmacy #0693, [address] [place], [address], 3 11:35:26 azithromyci n 250 mg tablet 2021 022 [email or web address] 5 [facility]/Pharmacy #0693, [address] [facility] [place], [address], 3 11:35:33 albuterol sulfate concentrate 2.5 mg/0.5 mL solution for nebulizatio n [address]/Pharmacy #0693, [address] [facility] [place], [address], 2 10:12:45 ipratropium bromide 0.02 % solution for inhalation [address]/Pharmacy #0693, [address] [facility] [place], [address], 2 10:12:42 nystatin 100,000 unit/gram topical cream [address]/Pharmacy #0693, [address] [facility] [place], [address], 2 09:43:56 cephalexin 500 mg capsule 2021 022 [email or web address] 5 [facility]/Pharmacy #0693, [address] [facility], [address], 3 11:35:49 cephalexin 500 mg capsule 2021 022 [email or web address] 5 [facility]/Pharmacy #0693, [address] [facility], [address], 3 11:35:49 Patient TargetsNo targets recorded. Patient Instructions Encounter Date Encounter Id Patient Instructions Last Modified By Organization Details Last Modified Time 01/03/2022 [id number] candidiasis: car e instructions [email or web address] Not available [...] pain. [email or web address] Not available 01/03/2022 13:03:10 05/07/2022 [id number] start mucinex as directed to help thin mucous drink plenty of fluids continue humidifier/steam rest continue albuterol inhaler four times per day for cough/breathing can use peppermints for cough can use honey for cough *[facility] will call to schedule chest xray. Should be complete within the next 24hrs *[facility] will follow up on Wednesday for recheck Please get to the ER if you are feeling worse [email or web address] Not available 05/07/2022 10:16:40 10/06/2022 [id number] Thank you for yo ur visit with [facility] [place] today. You were seen today for treatment [...] in your condition between 8am-10pm, please call [facility] [place] at [phone] to help navigate your care. [email or web address] Not available 10/06/2022 12:03:22 Reason for Referral None Reported. Results Created Date Observation Date Name Description Value Unit Range Abnormal Flag Note LastModifiedBy Organization Detail LastModifiedTime 07/04/19 23 07/04/2022 rapid SARS CoV 2 Ag, QL IA, respi rator y speci men Covid-19 (ref: neg) negati ve Not Available [facility] [address], [place], [address], 07/04/2022 11:44:48 07/04/19 23 07/04/2022 rapid SARS CoV 2 Ag, QL IA, respi rator y speci men Control Visual ized/V alid Not Available [facility] [address], [place], [address], 07/04/2022 11:44:48 07/04/19 23 07/04/2022 rapid SARS CoV 2 Ag, QL IA, respi rator y speci men Location [facility], [facility], [address], [place] [address], [id number] Not Available [facility] [address], [place], [address], 07/04/2022 11:44:48 05/08/20 22 05/08/2022 XR, chest [...] Leone M.D. 2021 11:53: 41 AM EST. [employer] [place] [address] [facility] [address], [place], [address], 08/06/2022 12:49:04 10/08/19 23 10/07/2022 XR, pelvi [...] NGUYEN M.D. 023 10:47: 33 AM EDT. [employer] [address] [address], [place], [address], 10/07/2022 18:32:41 10/08/1910/07/2022 hip uni W or [...] NGUYEN M.D. 023 10:47: 33 AM EDT. [email or web address] [address] [facility] [address], [place], [address], 10/07/2022 18:32:16 Result Notes None recorded. Procedures Surgical History Date Name Laterality Status Provider Name and Address Organization Details Recorded Time 07/04/19 23 Nebulizer treatment - completed FADI Clemens [address] [place], [address], [place] [facility] 07/04/2022 12:38:06 05/07/20 22 Nebulizer treatment - DH completed FADI NASCIMENTO [address], [place], [address], [place] [facility] 05/07/2022 10:29:59 total replacement of right hip joint completed FADI Young [address], [place], [address], [place] [facility] 10/04/2021 10:27:45 Gastric bypass for obesity completed FADI Young [address], [place], [address], [place] [facility] 10/04/2021 10:28:00 bilateral extraction of cataracts completed FADI Young [address], [place], [address], [place] [facility] 10/04/2021 10:28:07 biopsy of breast completed FADI Young [address], [place], [address], [place] [facility] 10/04/2021 10:28:14 tonsilectomy/a denoids completed FADI Young [address], [place], [address], [place] [facility] 10/04/2021 10:29:26 Imaging Results Imaging Date Name Status LastModified by Organiz ation Details LastModified Time 05/08/2022 XR, chest, 2 view completed [employer] [place] [address] [facility] [address], [place], [address], 08/06/2022 12:49:04 10/07/2022 XR, pelvis, 3 or more view completed [employer] [address], [place], [address], 10/07/2022 18:32:41 10/07/2022 hip uni W or w/o pelvis 1 view completed [employer] [address], [place], [address], 10/07/2022 18:32:16 Procedure Notes None recorded. Medical Equipment None Reported. Allergies Allergen ID Allergen Name Allergen Category Reaction Reaction Severity Criticality Documentation Date Start Date Code Code System Note Provider Name and Address Organization Details Recorded Time 379496 Non-stero idal anti-infl ammatory agent (product) medicatio n Not available Not available Not available 10/04/2021 33515 005 SNOMED FADI Santiago [address], [place], [address], [place] [facility] 2 10:52:20 [id number] sucralfat e medicatio n Not available Not available Not available 10/06/2022 39120 RxNorm Holliejunaid Jiang, JEAN [address], [place], [address], [place] [facility] [...] /min 108 mm[Hg] 62 mm[Hg] Not Available [facility] 10:29:44 Date Recorded Body temperature Oxygen saturation Oxygen saturation in Arterial blood by Pulse oximetry Respiratory rate Heart rate Systolic blood pressure Diastolic blood pressure Provider Name and Address Organization Details Last Updated DateTime 2 98.3 [degF] 98 % 98 % 16 /min 82 /min 126 mm[Hg] 74 mm[Hg] Not Available [facility] 12:32:06 Date Recorded Body temperature Respiratory [...] % 110 mm[Hg] 72 mm[Hg] Not Available [facility] 09:48:07 Date Recorded Respiratory rate Provider Name a nd Address Organization Details Last Updated DateTime 05/07/2022 20 /min FADI NASCIMENTO [address], [place], [address], [place] [facility] 05/07/2022 10:29:35 Date Recorded [...] /min 124 mm[Hg] 68 mm[Hg] Not Available [facility] 3 12:06:44 Social History Question Answer Notes LastModified by Organizat ion Details LastModified Time Tobacco Smoking Status Former Smoker FADI Young [address] [place], [address], [place] [facility] 10/04/2021 10:29:06 Do You Have An Advance Directive? Yes [email or web address] Information not available 10/06/2022 What Is Your Level Of Alcohol Consumption? None Information not available 10/04/2021 What Is Your Code Status? Full Code [email or web address] Information not available 10/06/2022 Within The Past 12 Months, Has It Happened That The Food You Bought Just Didn't Last And You Didn't Have Money To Get More. Never True [email or web address] Information not available 10/06/2022 Within The Past 12 Months, Have You Worried That Your Food Would Run Out Before You Got Money To Buy More. Never True [email or web address] Information not available 10/06/2022 Fall Risk: Do You Feel Unsteady When Standing Or Walking? No Information not available 10/06/2022 Excessive Alcohol Or Drug Use No [email or web address] Information not available 10/06/2022 Does This Patient Have A PCP? Yes [email or web address] Information not available 10/06/2022 ADL: Do You Need Help With Daily Activities Such As Bathing, Preparing Meals, Dressing, Or Cleaning? No [email or web address] Information not available 10/06/2022 What Is Your Current Pack Years? 10-19packye ars [email or web address] Information not available 10/06/2022 Do You Use [...] CHF N Parkinson's Disease N Cancer N Dementia N Stroke N Asthma N COPD N Depression Y Hypothyroidism N High Cholesterol N Rheumatoid Arthritis N Pulmonary Embolism N Hypertension Y Osteoporosis N A-fib N Kidney Disease N Gynecological HistoryNo gynecological history recorded. Obstetrics History GPAL:G 0 P 0 0 0 0 Past Encounters Encounter ID Performer Location Encounter Start Date Encounter Closed Date Diagnosis/Indication Diagnosis SNOMED-CT Code Diagnosis ICD10 Code Diagnosis Note [id number] FADI Arevalo [facility] [address] [place] [address] 10/04/2021 09:57:17 10/09/2021 09:37:20 Wound cellulitis 889339989 L03.90 [id number] ASIF LOVELL NP [facility] [address] [place] [address] 01/03/2022 12:26:14 01/05/2022 09:24:30 Candidal intertrigo 996734007 B37.2 [id number] FADI NASCIMENTO [facility] [place] [address] [place] [address] 05/07/2022 09:43:13 05/10/2022 20:18:20 Community acquired pneumonia 196895667 J18.9 Status of condition: {{Acute* C hronic [...] up precaution s Bilateral lower limb edema 152214930 R60.0 Status of condition: {{Acute Ch ronic* Sta ble Worsen ing Uncont rolled Cri tical: Warrants escalation to ED. Undete rmined: Unclear staging of condition. Needs further evaluation and management by PCP and/or Specialist }}. Testing/Re sults:none Discussion :ddx includes CHF, PVD, DVT Plan, Medication Management & Follow-up recommenda tions:Cont inue eval and work up with pcp [id number] FADI Clemens [facility] [address] [facility] [place] [address] 07/04/2022 11:34:05 07/06/2022 08:32:25 Acute bronchitis 47137458 J20.9 Essential hypertension 04510233 I10 [id number] Hollie Jiang NP [facility] [address] [facility] [place] [address] 10/06/2022 11:52:31 10/08/2022 18:44:12 Wound cellulitis [id number] L03.90 Status of condition: {{Acute Ex acerbation [...] Member ID Guarantor Name 10/04/2021 2 [place] [facility] Mayra Hernandez Griffith [id number] [facility] 10/04/2021 1 [facility] (MEDICARE REPLACEMENT/A DVANTAGE - HMO) [id number] [place] [address] [id number] [facility] 01/03/2022 2 [place] [facility] Mayra Hernandez Griffith [id number] [facility] 01/03/2022 1 [facility] (MEDICARE REPLACEMENT/A DVANTAGE - PPO) [id number] [place] [address] [id number] [facility] 05/07/2022 2 [place] [facility] Mayra Hernandez Griffith [id number] [facility] 05/07/2022 1 [facility] (MEDICARE REPLACEMENT/A DVANTAGE - PPO) [id number] [place] [address] [id number] [facility] 07/04/2022 2 [place] [facility] Mayra Hernandez Griffith [id number] [facility] 07/04/2022 1 [facility] (MEDICARE REPLACEMENT/A DVANTAGE - PPO) [id number] [place] [address] [id number] [facility] 10/06/2022 2 [place] [facility] Mayra Hernandez Griffith [id number] [facility] 10/06/2022 1 [facility] (MEDICARE REPLACEMENT/A DVANTAGE - PPO) [id number] [place] [address] [id number] [facility] Notes Date Note Type Note Provider Name [...] today.Of note does reports she went to [facility] ER last night to get this looked at and she left after the wait was going to be 10+ hours, this was [facility]. FADI Young [address], [place], [address], [place] [facility] 10/04/2021 11:19:03 01/03/2022 text/html [...] well. ASIF LOVELL NP [address], [place], [address], [place] [facility] 01/03/2022 13:03:27 05/07/2022 text/html [...] showed RBBB. FADI NASCIMENTO [address], [place], [address], [place] [facility] 05/07/2022 10:38:42 07/04/2022 text/html [...] been helping. FADI Clemens [address], [place], [address], [place] [facility] 07/04/2022 12:45:03 10/06/2022 text/html [...] edema. Hollie Jiang NP [address], [place], [address], [place] [facility] 10/06/2022 12:38:29 OBGyn Episode No OBEpisode recorded.
== END 2024-07-13 08:34 | disposition home or self-care (01) ==
PROVIDERS: PCP Internal Medicine; Visit Provider Surgery
DX: S71.001A Unspecified open wound, right hip, initial encounter (principal)
CPT/HCPCS: 99213

== ENCOUNTER → 2024-07-13 08:15 | Outpatient (BNVA) | payer MEDICARE, MEDICAID, SELFPAY | PROVIDERS: PCP Internal Medicine; Visit Provider Surgery | DX: S71.001A Unspecified open wound, right hip, initial encounter (principal); X58.XXXA Exposure to other specified factors, initial encounter; Y93.9 Activity, unspecified; Y92.9 Unspecified place or not applicable; Y99.9 Unspecified external cause status | CPT/HCPCS: 99212 ==

== ENCOUNTER 2024-07-26 09:29 | Outpatient (AMB) | payer MEDICARE, MEDICAID, SELFPAY ==
[2024-07-26 09:41] VITALS: BP 132/60; PULSE 62; O2SAT 97; BMI 33.4
--- NOTE | 2024-07-26 09:41 | A.OFFVIS_ITS ---
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 Required: No Allergies sucralfate [Carafate] Allergy (Intermediate, Verified 07/26/24 10:04) hives NSAIDS (Non-Steroidal Anti-Inflamma Adverse Reaction (Intermediate, Verified 07/26/24 10:04) cannot take due to gastric bypass history Medication List - Last Reconciled 07/26/24 by Oriana Smith MD [2 inch cloth tape As directed] [4x4 sterile gauze pads As directed] alendronate (Fosamax) 70 mg PO QWEEK 90 days aripiprazole 10 mg PO QAM ascorbic acid (vitamin C) 1,000 mg PO QAM bisacodyl (Dulcolax (bisacodyl)) 10 mg (2 x 5 mg) PO BEDTIME 90 days bupropion HCl XL (Wellbutrin XL) 300 mg PO QAM bupropion HCl XL 150 mg PO QAM calcium [id number]-electron microscopist-fortino 250 mg-40 mg- 125 unit-3.75mg (Calcium Citrate Plus) 1 tab PO QAM cholecalciferol (vitamin D3) 50 mcg PO QPM escitalopram oxalate (Lexapro) 20 mg PO QAM ferrous sulfate (Feosol) 325 mg PO QPM hydrochlorothiazide 25 mg PO QAM lorazepam 0.5 mg PO DAILY PRN Motegrity (prucalopride) 2 mg PO DAILY NS multivitamin (Daily Multi-Vitamin tablet) 1 tab PO QPM omeprazole 40 mg PO DAILY primidone 50 mg PO BEDTIME propranolol ER 60 mg PO BEDTIME ropinirole 0.25 mg PO BEDTIME Do you need a note to return to daycare/school/sports/work: No HPI HPI Shortness of breath: Details: This 78 years old very pleasant female is here for follow-up after starting on the CPAP. She has moderate dorsal kyphosis. She does have chronic anxiety/mild depression which is controlled with meds She is nonsmoker. She has mild obstructive sleep apnea along with nocturnal hypoxemia, and thus she was started on CPAP therapy. She uses her CPAP regularly every night. The amount of sleep per night has increased from few hours to about 5-6 hours every night. There is no in convenience from use of CPAP. She is fairly active during the daytime and walks around daily. ON LICENSE OF [facility] Medical History SOULEYMANE (obstructive sleep apnea) Wound, open, hip or thigh with complication Encounter for general adult medical examination with abnormal findings Hip pain, right Preoperative cardiovascular examination Change in bowel movement Traumatic seroma of right thigh Postprocedural seroma of skin and subcutaneous tissue following other procedure Open wound of right hip and thigh Peripheral vascular disease Right rib fracture Menopause Pain management Pain management contract agreement Open wound of right lower leg with complication Shortness of breath Cough Edema Influenza A H1N1 infection Hospital discharge follow-up Cellulitis of right leg Varicose veins of right lower extremity with inflammation Enterococcus faecalis infection Abscess Hip pain, right Obesity Lymphedema Morbid obesity due to excess calories Pre-op evaluation Colon cancer screening Medicare annual wellness visit, subsequent Family history of anesthesia complication Back pain Arthritis Renal calculi Post-influenza syndrome Tremor Peripheral vascular disease Right bundle branch block (RBBB) Aortic valve calcification Mitral annular calcification Nocturnal hypoxemia COPD (chronic obstructive pulmonary disease) Restrictive lung disease Stasis edema of both lower extremities Nail fungus Chronic GERD Depression, major, recurrent Hypertension, essential Surgical History History of excision of lesion (10/20/23) History of total hip arthroplasty S/P gastric bypass History of surgery on lower extremity (01/25/23) History of surgery H/O colonoscopy History of cataract extraction History of bilateral tubal ligation History of tonsillectomy Family History Father No problems noted. Mother Alzheimer's disease Maternal Grandmother Cancer Maternal Grandfather No problems noted. Paternal Grandfather No problems noted. Paternal Grandmother No problems noted. Maternal Aunt Cancer Sister Colon cancer Son No problems noted. Daughter No problems noted. Social History Household Members: Children Household Members Other:: daughter Housing: House Housing Other:: mobile home Are you a primary managed care provider to a significant other at home: No Do you presently have visiting nurse or other home services: No Alcohol intake: never Patient Tobacco Use Status: Former Tobacco user Tobacco use type: Cigarette Years Smoked: 40 e-Cigarette/Vaping Use: Currently Using Second Hand Smoke Exposure: No Advance Directives Date on File: 03/13/15 service: No Current occupational status: retired and other Current occupation: right handed Cognitive needs: No Hearing needs: No Vision needs: No Female Reproductive History Menstrual Age of Menarche: 13 Review of Systems Const All systems reviewed & are unremarkable except as noted in HPI and below Eyes Reports no additional complaints ENT Reports no additional complaints Card Reports leg edema and Reports dyspnea Resp Reports as per HPI and Reports dyspnea GI Reports no additional complaints Reports no additional complaints Musc Reports back pain and Reports arthralgias (Mild) Skin/Breast Reports system reviewed and no additional complaints, except as documented Neuro Reports no additional complaints Psych Reports anxiety Endo Reports no additional complaints Valeriy/Lymph Reports no additional complaints Physical Exam Vital Signs: Last Vital Signs Pulse 62 07/26/24 09:41 BP 132/60 07/26/24 09:41 Pulse Ox 97 07/26/24 09:41 Oxygen Delivery Method Room Air 07/26/24 09:41 BMI result Body Mass Index 33.4 Const Other: Patient is grossly obese. Her obesity is mainly abdominal and of lower extremities. General: comfortable, no acute distress, alert and awake Orientation/consciousness: patient oriented x3 HEENT Head: Yes normal to inspection General nose exam: No nasal polyps present and No nasal discharge present Face and sinus: Yes sinuses nontender Mouth: oropharynx normal Throat: Yes posterior oropharynx normal (Oropharynx is only slightly crowded, Mallampati class 2) Eyes General: appearance normal, both eyes and all related structures Neck Neck: Yes normal visual inspection, Yes no lymphadenopathy, Yes trachea midline and Yes no JVD Thyroid: Thyroid normal Chest Chest palpation & inspection: normal inspection of the chest, normal palpation of entire chest wall and no tenderness Resp Effort & Inspection: normal respiratory effort Auscultation: clear to auscultation bilaterally, no crackles and no wheezes Percussion: other (Breath sounds are slightly distant but no wheezes or rhonchi are heard) Cardio Palpation: PMI not normal (PMI is not palpable) Rate: regular rate Rhythm: regular rhythm Heart sounds: no gallops and no murmurs GI Palpation (GI): Soft to palpation, Tenderness to palpation present (GI), No hepatosplenomegaly present and Palpable mass present Auscultation: normal bowel sounds Back/Spine/Pelvis Thoracic/Lumbar Spine: thoracic and lumbar spine normal to inspection and thoraco-lumbar ROM limited Neuro General: patient oriented x3 and no focal motor deficits Cranial nerves: Yes CN's II-XII intact bilaterally Extrem General: Yes normal to inspection, Yes no calf tenderness and Yes edema (There is massive edema of both lower extremities. Has compressive stockings) Psych Appearance: grossly normal and well kempt Speech and movement: Normal speech and movement present Results Reviewed Results Reviewed: Compliance report for the last 30 nights reviewed. She has used CPAP 30/30 nights., 100% Average use it per night 5 hours 17 minutes. Residual AHI 2.8 Assessment & Plan Assessment & Plan (1) COPD (chronic obstructive pulmonary disease): Comment: SHE DOES HAVE HISTORY OF SMOKING IN THE PAST HAS OCCASIONAL COUGH AND SHORTNESS OF BREATH ON WALKING FAST. HOWEVER DOES NOT HAVE ANY WHEEZING ATTACKS. CLINICALLY I DO NOT THINK SHE HAS ANY SIGNIFICANT DEGREE OF COPD Code(s): J44.9 - Chronic obstructive pulmonary disease, unspecified Category: Medical Qualifiers: COPD type: emphysema Emphysema type: other Qualified Code(s): J43.8 - Other emphysema Plan: Does not need to use any bronchodilator inhalers (2) Restrictive lung disease: Comment: BECAUSE OF HER MORBID OBESITY AND DORSAL KYPHOSIS , SHE DOES HAVE MILD TO MODERATE DEGREE OF RESTRICTIVE LUNG DISEASE. Code(s): J98.4 - Other disorders of lung Category: Medical Plan: Advised to do deep breathing exercises 3 times a day regularly. (3) Nocturnal hypoxemia: Comment: MINIMAL NOCTURNAL HYPOXEMIA WAS RECORDED ON HOME-BASED SLEEP STUDY. O2 SAT BELOW 88% FOR 8 MINUTES. 6 MINUTE WALK TEST WAS NORMAL NOCTURNAL HYPOXEMIA IS EXPECTED TO HAVE CORRECTED WITH THE USE OF CPAP. Code(s): G47.34 - Idiopathic sleep related nonobstructive alveolar hypoventilation Category: Medical Plan: EXPLAINED TO THE PATIENT THAT WITH THE USE OF CPAP,, HYPOXEMIA SHOULD BE CORRECTED. (4) SOULEYMANE (obstructive sleep apnea): Comment: PATIENT HAS PAST HISTORY OF OBSTRUCTIVE SLEEP APNEA AND STOPPED USING THE CPAP ABOUT 6 YEARS AGO. SHE REMAINS MODERATELY OBESE. SHE HAD A HOME-BASED SLEEP STUDY WHICH CONFIRMED THE DIAGNOSIS OF SLEEP APNEA. EVEN THOUGH IT WAS MILD . SHE HAD ASSOCIATED NOCTURNAL HYPOXEMIA, THUS SHE WAS STARTED ON CPAP THERAPY. SHE IS VERY COMPLIANT AND CLAIMS THAT SHE IS SLEEPING BETTER THAN BEFORE. SHE USES CPAP AT LEAST FOR 5-6 HOURS EVERY NIGHT, Code(s): G47.33 - Obstructive sleep apnea (adult) (pediatric) Category: Medical Plan: COMMENDED FOR GOOD COMPLIANCE ADVISED TO KEEP ON USING CPAP EVERY NIGHT. Coding Level of Care Code Est Pt Level 3 (69171) Diagnoses Other emphysema J43.8 COPD type: emphysema Emphysema type: other Restrictive lung disease J98.4 Nocturnal hypoxemia G47.34 SOULEYMANE (obstructive sleep apnea) G47.33
--- OUTSIDE RECORDS SUMMARY | 2024-07-26 10:29 | XMS_ITS | Data Portability ---
Author Organization [place] [facility] Address [address] [place] [address] Care Team Providers Care Casino Attendant Name Role Phone STEPHANIE MARIE Primary Care Provider [phone] [facility] OTHER Assessment Encounter Date Assessment Date Assessment [...] going to be 10+ hours, [place] [facility]am: Vitals: VSS and afebrile Constitutional: 74 [...] after care of this patient [facility] to [facility]. [email or web address] Not available 07/04/2022 12:44:13 10/06/2022 10/06/2022 Brief [...] to patient. All questions answered. wound care [phone] - wound care states that they have no apts sooner than but will place pt on cancellation list [email or web address] Not available 10/06/2022 12:38:07 Plan of Treatment Reminders Order Date Submit Date Provider Last Modified By Organization Details Last Modified Time Details Appointments None recorded. Lab rapid SARS CoV 2 Ag, QL IA, respiratory specimen 2022 023 [email or web address] 5 [facility], [address] [place] [address], [address], 12:38:31 Referral None recorded. Procedures None recorded. Surgeries None recorded. Imaging XR, pelvis, 3 or more view - rule out osteomyelit is. tunneling wound over prosthetic hip joint [address] [address] [facility], [place], [address], 3 11:01:28 XR, chest, 2 view [address] [facility] [address] [facility], [place], [address], 2 11:58:06 Medication Orders doxycycline hyclate 100 mg capsule 2022 023 [facility]acy #0693, [address] [place], [address], 3 12:35:07 albuterol sulfate concentrate 2.5 mg/0.5 mL solution for nebulizatio n 2022 023 [email or web address] [facility]/Pharmacy #0693, [address] [place], [address], 3 12:38:23 ipratropium bromide 0.02 % solution for inhalation 2022 023 [email or web address] 5 [facility]/Pharmacy #0693, [address] [place], [address], 3 12:38:34 prednisone 20 mg tablet 2022 023 [email or web address] [facility], [address] [place], [address], 3 12:02:14 prednisone 10 mg tablet 2022 023 maury [facility]/Pharmacy #0693, [address] [place], [address], 3 12:02:10 amoxicillin 875 mg-potassiu m clavulanate 125 mg tablet 2021 022 [email or web address] 5 [facility]/Pharmacy #0693, [address] [place], [address], 3 11:35:26 azithromyci n 250 mg tablet 2021 022 [email or web address] 5 [facility]/Pharmacy #0693, [address] [facility] [place], [address], 3 11:35:33 albuterol sulfate concentrate 2.5 mg/0.5 mL solution for nebulizatio n [address]/Pharmacy #0693, [address] [facility] [place], [address], 2 10:12:45 ipratropium bromide 0.02 % solution for inhalation [address]/Pharmacy #0693, [address] [facility] [place], [address], 2 10:12:42 nystatin 100,000 unit/gram topical cream [address]/Pharmacy #0693, [address] [facility] [place], [address], 2 09:43:56 cephalexin 500 mg capsule 2021 022 [email or web address] 5 [facility]/Pharmacy #0693, [address] [facility] [place], [address], 3 11:35:49 cephalexin 500 mg capsule 2021 022 [email or web address] 5 [facility]/Pharmacy #0693, [address] [facility] [place], [address], 3 11:35:49 Patient TargetsNo targets recorded. Patient Instructions Encounter Date Encounter Id Patient Instructions Last Modified By Organization Details Last Modified Time 01/03/2022 [id number] candidiasis: car e instructions [email or web address] Not available [...] pain. [email or web address] Not available 01/03/2022 13:03:10 05/07/2022 [id number] start mucinex as directed to help thin mucous drink plenty of fluids continue humidifier/steam rest continue albuterol inhaler four times per day for cough/breathing can use peppermints for cough can use honey for cough *[facility] will call to schedule chest xray. Should be complete within the next 24hrs *[facility] will follow up on Wednesday for recheck Please get to the ER if you are feeling worse [email or web address] Not available 05/07/2022 10:16:40 10/06/2022 [id number] Thank you for yo ur visit with [facility] today. You were seen today for treatment [...] condition between 8am-10pm, please call [facility] at [phone] to help navigate your care. Not available 10/06/2022 12:03:22 Reason for Referral None Reported. Results Created Date Observation Date Name Description Value Unit Range Abnormal Flag Note LastModifiedBy Organization Detail LastModifiedTime 07/04/19 23 07/04/2022 rapid SARS CoV 2 Ag, QL IA, respi rator y speci men Covid-19 (ref: neg) negati ve Not Available [facility] [address], [place], [address], 07/04/2022 11:44:48 07/04/19 23 07/04/2022 rapid SARS CoV 2 Ag, QL IA, respi rator y speci men Control Visual ized/V alid Not Available [facility] [address], [place], [address], 07/04/2022 11:44:48 07/04/19 23 07/04/2022 rapid SARS CoV 2 Ag, QL IA, respi rator y speci men Location [facility], [email or web address], [address] [facility], [place] [address], [phone] Not Available [facility] [address] [facility], [place], [address], 07/04/2022 11:44:48 05/08/20 22 05/08/2022 XR, chest [...] diseas e. Electr onical ly signed by MARITN Leone M.D. 2021 11:53: 41 AM EST. [email or web address] [employer] [facility] [address] [facility] [address], [place], [address], 08/06/2022 12:49:04 10/08/19 23 10/07/2022 XR, pelvi [...] NGUYEN M.D. 023 10:47: 33 AM EDT. [email or web address] [facility] [address] [address], [place], [address], 10/07/2022 18:32:41 10/08/1910/07/2022 hip uni W or [...] NGUYEN M.D. 023 10:47: 33 AM EDT. [email or web address] [facility] [address] [facility] [address], [place], [address], 10/07/2022 18:32:16 Result Notes None recorded. 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 FADI Young [address], [place], [address], [place] [facility] 10/04/2021 10:27:45 Gastric bypass for obesity completed FADI Young [address], [place], [address], [place] [facility] 10/04/2021 10:28:00 bilateral extraction of cataracts completed FADI Young [address], [place], [address], [place] [facility] 10/04/2021 10:28:07 biopsy of breast completed FADI Young [address], [place], [address], [place] [facility] 10/04/2021 10:28:14 tonsilectomy/a denoids completed FADI Young [address], [place], [address], [place] [facility] 10/04/2021 10:29:26 Imaging Results Imaging Date Name Status LastModified by Organiz ation Details LastModified Time 05/08/2022 XR, chest, 2 view completed [employer] [facility] [address] [facility] [address], [place], [address], 08/06/2022 12:49:04 10/07/2022 XR, pelvis, 3 or more view completed [facility] [address] [facility] [address], [place], [address], 10/07/2022 18:32:41 10/07/2022 hip uni W or w/o pelvis 1 view completed [facility] [address] [facility] [address], [place], [address], 10/07/2022 18:32:16 Procedure Notes None recorded. Medical Equipment None Reported. Allergies Allergen ID Allergen Name Allergen Category Reaction Reaction Severity Criticality Documentation Date Start Date Code Code System Note Provider Name and Address Organization Details Recorded Time [id number] Non-stero idal anti-infl ammatory agent (product) medicatio n Not available Not available Not available 10/04/2021 51505 005 SNOMED FADI Santiago [address], [place], [address], [place] [facility] 2 10:52:20 842709 sucralfat e medicatio n Not available Not available Not available 10/06/2022 36278 [facility] Holliejunaid Jiang, JEAN [address], [place], [address], [place] [facility] [...] /min 108 mm[Hg] 62 mm[Hg] Not Available [facility] 10:29:44 Date Recorded Body temperature Oxygen saturation Oxygen saturation in Arterial blood by Pulse oximetry Respiratory rate Heart rate Systolic blood pressure Diastolic blood pressure Provider Name and Address Organization Details Last Updated DateTime 2 98.3 [degF] 98 % 98 % 16 /min 82 /min 126 mm[Hg] 74 mm[Hg] Not Available [facility] 12:32:06 Date Recorded Body [...] % 110 mm[Hg] 72 mm[Hg] Not Available [facility] 09:48:07 Date Recorded Respiratory rate Provider Name a nd Address Organization Details Last Updated DateTime 05/07/2022 20 /min FADI NASCIMENTO [address], [place], [address], [place] [facility] 05/07/2022 10:29:35 Date Recorded [...] /min 124 mm[Hg] 68 mm[Hg] Not Available [facility] 12:06:44 Social History Question Answer Notes LastModified by Organizat ion Details LastModified Time Tobacco Smoking Status Former Smoker FADI Young [address] [place], [address], [place] [facility] 10/04/2021 10:29:06 Do You Have An Advance Directive? Yes [email or web address] Information not available 10/06/2022 What Is Your Level Of Alcohol Consumption? None Information not available 10/04/2021 What Is Your Code Status? Full Code Information not available 10/06/2022 Within The Past 12 Months, Has It Happened That The Food You Bought Just Didn't Last And You Didn't Have Money To Get More. Never True [email or web address] Information not available 10/06/2022 Within The Past 12 Months, Have You Worried That Your Food Would Run Out Before You Got Money To Buy More. Never True [email or web address] Information not available 10/06/2022 Fall Risk: Do You Feel Unsteady When Standing Or Walking? No [email or web address] Information not available 10/06/2022 Excessive Alcohol Or Drug Use No [email or web address] Information not available 10/06/2022 Does This Patient Have A PCP? Yes [email or web address] Information not available 10/06/2022 ADL: Do You Need Help With Daily Activities Such As Bathing, Preparing Meals, Dressing, Or Cleaning? No [email or web address] Information not available 10/06/2022 What Is Your Current Pack Years? 10-19packye ars [email or web address] Information not available 10/06/2022 Do You Use [...] available 2021 10:28:51 Medical History Condition Response Coronary Artery Disease N Depression Y COPD N Hypothyroidism N A-fib N Cancer N Stroke N High Cholesterol N Rheumatoid Arthritis N Kidney Disease N Parkinson's Disease N Diabetes N CHF N Dementia N Asthma N Pulmonary Embolism N Hypertension Y Osteoporosis N Gynecological HistoryNo gynecological history recorded. Obstetrics History GPAL:G 0 P 0 0 0 0 Past Encounters Encounter ID Performer Location Encounter Start Date Encounter Closed Date Diagnosis/Indication Diagnosis SNOMED-CT Code Diagnosis ICD10 Code Diagnosis Note [id number] F[facility]I Arevalo [facility] [address] [place] [address] 10/04/2021 09:57:17 10/09/2021 09:37:20 Wound cellulitis 577812880 L03.90 [id number] ASIF LOVELL NP [facility] [address] [place] [address] 01/03/2022 12:26:14 01/05/2022 09:24:30 Candidal intertrigo 287303256 B37.2 [id number] FADI NASCIMENTO [facility] [place] [address] [place] [address] 05/07/2022 09:43:13 05/10/2022 20:18:20 Community acquired pneumonia 368893285 J18.9 Status of condition: {{Acute* C hronic [...] up precaution s Bilateral lower limb edema 081257315 R60.0 Status of condition: {{Acute Ch ronic* Sta ble Worsen ing Uncont rolled Cri tical: Warrants escalation to ED. Undete rmined: Unclear staging of condition. Needs further evaluation and management by PCP and/or Specialist }}. Testing/Re sults:none Discussion :ddx includes CHF, PVD, DVT Plan, Medication Management & Follow-up recommenda tions:Cont inue eval and work up with pcp [id number] FADI Clemens [facility] [address] [place] [address] 07/04/2022 11:34:05 07/06/2022 08:32:25 Acute bronchitis 78291448 J20.9 Essential hypertension 01292647 I10 [id number] Hollie Jiang NP [facility] [address] [place] [address] 10/06/2022 11:52:31 10/08/2022 18:44:12 Wound cellulitis 684403539 L03.90 Status of condition: {{Acute Ex acerbation [...] Member ID Guarantor Name 10/04/2021 2 [place] [facility] Ennis [id number] [facility] 10/04/2021 1 [facility] (MEDICARE REPLACEMENT/A DVANTAGE - HMO) [id number] [place] [address] [id number] [facility] 01/03/2022 2 [place] [facility] May[facility] Hernandez Ennis [id number] [facility] 01/03/2022 1 [facility] (MEDICARE REPLACEMENT/A DVANTAGE - PPO) [id number] [place] [address] [id number] [facility] 05/07/2022 2 [place] [facility] Mayra Hernandez Ennis [id number] [facility] 05/07/2022 1 [facility] (MEDICARE REPLACEMENT/A DVANTAGE - PPO) [id number] [place] [address] [id number] [facility] 07/04/2022 2 [place] [facility] Mayra Hernandez Ennis [id number] [facility] 07/04/2022 1 [facility] (MEDICARE REPLACEMENT/A DVANTAGE - PPO) [id number] [place] [address] [id number] [facility] 10/06/2022 2 [place] [facility] Mayra Hernandez Ennis [id number] [facility] 10/06/2022 1 [facility] (MEDICARE REPLACEMENT/A DVANTAGE - PPO) [id number] [place] [address] [id number] [facility] Notes Date Note Type Note Provider Name [...] today.Of note does reports she went to [facility] ER last night to get this looked at and she left after the wait was going to be 10+ hours, this [place] [facility] FADI Young [address], [place], [address], [place] [facility] 10/04/2021 11:19:03 01/03/2022 text/html [...] well. ASIF LOVELL NP [address], [place], [address], [place] [facility] 01/03/2022 13:03:27 05/07/2022 text/html [...] showed RBBB. FADI NASCIMENTO [address], [place], [address], [place] [facility] 05/07/2022 10:38:42 07/04/2022 text/html [...] been helping. FADI Clemens [address], [place], [address], [place] [facility] 07/04/2022 12:45:03 10/06/2022 text/html [...] edema. Hollie Jiang NP [address], [place], [address], [place] [facility] 10/06/2022 12:38:29 OBGyn Episode No OBEpisode recorded.
== END 2024-07-26 10:05 | disposition home or self-care (01) ==
LOC: HO.HPS 09:29
PROVIDERS: PCP Internal Medicine; Visit Provider Internal Medicine
DX: J43.8 Other emphysema (principal); J98.4 Other disorders of lung; G47.34 Idiopathic sleep related nonobstructive alveolar hypoventilation; G47.33 Obstructive sleep apnea (adult) (pediatric)
CPT/HCPCS: 99213

== ENCOUNTER → 2024-07-26 09:29 | Outpatient (BNVA) | payer MEDICARE, MEDICAID, SELFPAY | PROVIDERS: PCP Internal Medicine; Visit Provider Internal Medicine | DX: J43.8 Other emphysema (principal); J98.4 Other disorders of lung; G47.34 Idiopathic sleep related nonobstructive alveolar hypoventilation; G47.33 Obstructive sleep apnea (adult) (pediatric) | CPT/HCPCS: 99212 ==

== ENCOUNTER 2024-08-17 14:16 | Inpatient (IN) | payer MEDICARE, MEDICAID, SELFPAY ==
[2024-08-17] VITALS (37 sets, daily range): BP systolic 55–129; BP diastolic 28–63; PULSE 58–115; RESP 13–29; TEMP 36.1–36.8; O2SAT 94–97; BMI 34.7; BMI 38.5
--- NOTE | ~2024-08-17 | CT_ITS ---
EXAMINATION: CT CERVICAL SPINE WITHOUT CONTRAST CLINICAL INFORMATION: COMPARISON: None available. TECHNIQUE: Spiral CT imaging of the cervical spine performed in axial plane without contrast. Multiplanar reformatted images were constructed from the axial data set. This CT examination was performed using dose optimization techniques as appropriate, variously including the following: *Automated exposure control *Adjustment of mA and/or kV according to patient size (this includes techniques or standardized protocols for targeted exams where dose is matched to indication/reason for exam; i.e. extremities or head) *Use of iterative reconstruction technique FINDINGS: CORONAL ALIGNMENT: -Normal. SAGITTAL ALIGNMENT: -Mild reversal of the normal lordosis centered at C4. -2 mm degenerative appearing anterolisthesis of C3 on C4, C4 on C5, and C7 on T1. -2 mm degenerative retrolisthesis of C5 on C6. C1-C2 AND CRANIOCERVICAL JUNCTION: -Intact and aligned. There are advanced degenerative changes of the anterior C1-2 articulation. There is dorsal hyperattenuating pannus formation with mild craniocervical junction narrowing. VERTEBRAL BODIES AND FACETS: -Diffuse osteopenia/osteoporosis. -No acute fracture, traumatic malalignment, or suspicious bone lesion. -Chronic mild compression deformity of T3 superior endplate. -Normal facet alignment. Multilevel hypertrophic degenerative facet changes left greater than right. -The right T4-5 facets are fused. DISCS: -Severe disc degeneration C5-6 and C6-7. -There is otherwise mild to moderate disc degeneration. CENTRAL CANAL: -No evidence of high-grade central canal narrowing or large disc herniation allowing for modality limitations. PREVERTEBRAL AND PARAVERTEBRAL SOFT TISSUES: -No prevertebral or paravertebral soft tissue abnormality. -Moderate left and mild right carotid bulb calcifications. -Normal thyroid. LUNG APICES: -Smooth interlobular septal thickening noted suggesting mild interstitial edema. No pneumothorax. CT/CT cervical spine wo IV con IMPRESSION: 1. Diffuse osteopenia/osteoporosis. 2. No acute fracture or traumatic malalignment. 3. Chronic appearing mild compression deformity superior endplate of T3. 4. Moderate degenerative spondylosis. 5. Findings suggesting mild interstitial pulmonary edema. Electronically signed by: Stevo Em MD 08/17/2024 05:04 PM EDT
--- NOTE | ~2024-08-17 | CT_ITS ---
CLINICAL HISTORY: Osteomylitis ? CT right femur without contrast Comparison: None Findings: Osteopenia. Evidence of prior total hip arthroplasty. Hardware is intact, alignment is maintained. Chronic appearing deformity of the right femoral neck and proximal shaft. No obvious erosive changes or acute fractures. No aggressive periosteal reactions. Grade 1 anterolisthesis at L5-S1 with advanced spondylosis. [id number] tricompartmental osteoarthritis of the knee pronounced in the lateral and patellofemoral compartments. Small knee joint effusion. Right posterolateral hip soft tissue thickening/scarring and/or irregular collection with tiny foci of soft tissue gas, series 4, image 118 and image 92. There is an associated soft tissue defect with skin calcifications best seen on coronal series 4, image 437. Correlation with recent procedure/intervention advised. Cholelithiasis. Benitez catheter in the bladder. IMPRESSION: Right ANASTACIO without CT evidence for osteomyelitis, please see above. This document has been electronically signed by: Spencer Lindquist MD on 08/17/2024 22:14:03
--- NOTE | ~2024-08-17 | CT_ITS ---
EXAMINATION: CT CHEST WITHOUT CONTRAST CLINICAL INFORMATION: Shortness of breath. COMPARISON: No prior CT. Chest x-ray dated 05/18/2023. TECHNIQUE: Multidetector volumetric CT imaging of the chest was done. Axial MIP volume rendering provided. Sagittal and coronal reformatted images were obtained. This CT examination was performed using dose optimization techniques as appropriate, variously including the following: *Automated exposure control *Adjustment of mA and/or kV according to patient size (this includes techniques or standardized protocols for targeted exams where dose is matched to indication/reason for exam; i.e. extremities or head) *Use of iterative reconstruction technique FINDINGS: LUNGS: There is mild smooth interlobular septal thickening throughout both lungs, most likely on the basis of mild interstitial pulmonary edema. There is linear type atelectasis in the lingular segment. There is bilateral lower lobe linear and dependent type atelectasis . There is no consolidation or pneumonia. Small airways appear normal. Central airways are patent. There is no effusion or pneumothorax. There are a few scattered calcified granulomata. There are scattered pulmonary micronodules, largest in the posterior upper lobe measuring 5 mm (series 4, image 36). MEDIASTINUM: There is mild cardiac enlargement. There is no pericardial effusion. There are no abnormal lymph nodes or masses. Normal thyroid. Main pulmonary artery is enlarged suggesting increased pulmonary pressures. Aorta is normal in caliber and demonstrates moderate calcific atheromatous change. There is no aneurysm. Descending aorta is mildly tortuous. There is a small type I hiatus hernia. Within the right cardiophrenic angle, there is a water density cyst measuring 4.9 x 3.5 cm, consistent with a pericardial cyst. CORONARY ARTERY CALCIFICATION: Heavy three-vessel calcifications. AXILLA/CHEST WALL: No lymphadenopathy. UPPER ABDOMEN: Refer to the dedicated abdomen and pelvis CT performed concurrently.. OSSEOUS STRUCTURES: No suspicious lytic or blastic bone lesion. Diffuse osteopenia. There are several compression fractures of the thoracic spine, unknown chronicity although appear chronic. Vertebra plana deformity of T8. There are healed right rib fractures. CT/CT chest wo IV con IMPRESSION: 1. Cardiomegaly with mild pulmonary interstitial edema. 2. Linear atelectasis in the lingula, and in both lower lobes. 3. Enlargement of the main pulmonary artery suggesting increased pulmonary pressures. 4. There are a few scattered pulmonary micronodules measuring up to 5 mm. One-year follow-up recommended in a high-risk patient. 5. 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 6. Osteopenia with numerous likely chronic thoracic compression fractures. Vertebra plana deformity of T8. These appear to be present on prior chest x-ray 05/18/2023. Electronically signed by: Stevo Em MD 08/17/2024 04:32 PM EDT
--- NOTE | ~2024-08-17 | CT_ITS ---
EXAMINATION: CT HEAD WITHOUT CONTRAST CLINICAL INFORMATION: ? Fall,? Head strike, weakness, confusion COMPARISON: None available. TECHNIQUE: Contiguous axial imaging was performed from the skull base to vertex without intravenous administration of contrast. This CT examination was performed using dose optimization techniques as appropriate, variously including the following: *Automated exposure control *Adjustment of mA and/or kV according to patient size (this includes techniques or standardized protocols for targeted exams where dose is matched to indication/reason for exam; i.e. extremities or head) *Use of iterative reconstruction technique FINDINGS: There is no evidence of intracranial hemorrhage or extra-axial fluid collection. There is no mass effect, or edema. No CT evidence of acute territorial infarct. Ventricles, sulci, and cisterns are normal in size and configuration for patient age. No hydrocephalus. No midline shift. Negative hyperdense MCA sign. Negative insular ribbon sign. Patchy periventricular and deep white matter hypoattenuation is consistent with mild to moderate small vessel ischemic changes. Normal pituitary. Mild atheromatous calcification of the bilateral carotid siphons. 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 There are lens replacements. No extracranial soft tissue abnormalities. The paranasal sinuses, mastoid air cells, and tympanic cavities are normally aerated. There is osteopenia. No suspicious bony abnormalities. There are no acute fractures evident. Severe degenerative changes left TM joint. CT/CT head/brain wo IV con IMPRESSION: No acute intracranial abnormality. Chronic changes as discussed Electronically signed by: Stevo Em MD 08/17/2024 04:56 PM EDT
--- NOTE | ~2024-08-17 | CT_ITS ---
EXAMINATION: CT ABDOMEN AND PELVIS WITHOUT CONTRAST CLINICAL INFORMATION: Acute renal failure. COMPARISON: CT pelvis 10/19/2021. Correlation made with CT chest performed concurrently with this exam. TECHNIQUE: Multidetector volumetric imaging was performed from the superior aspect of the liver through the pubic symphysis. Sagittal and coronal reformatted images were obtained on the technologist's workstation. This CT examination was performed using dose optimization techniques as appropriate, variously including the following: *Automated exposure control *Adjustment of mA and/or kV according to patient size (this includes techniques or standardized protocols for targeted exams where dose is matched to indication/reason for exam; i.e. extremities or head) *Use of iterative reconstruction technique FINDINGS: LUNG BASES: Please refer to the dedicated CT chest examination. LIVER, GALLBLADDER, AND BILIARY TREE: The unenhanced liver is enlarged with craniocaudad diameter of 21.4 cm. It is normal in attenuation. There is no suspicious focal lesion. No intra or extrahepatic biliary dilatation. The gallbladder is markedly distended and demonstrates a calcified 1.4 cm gallstone in the region of the gallbladder neck. No wall thickening or pericholecystic inflammatory changes or fluid. PANCREAS: Moderate fatty atrophy. No focal lesion. SPLEEN: Unremarkable. ADRENAL GLANDS: Left hyperplasia. The right is normal. KIDNEYS AND URETERS: The kidneys are normal in size, shape, and attenuation. No hydronephrosis, hydroureter, or calculi seen. No perinephric stranding. BLADDER: Collapsed around a Benitez catheter. Partially obscured by streak artifact from a right hip prosthesis. GASTROINTESTINAL TRACT: There has been prior gastric bypass surgery. No bowel obstruction. Small type I hiatus hernia. No acute findings of the small bowel, colon, or rectum. A normal appendix is visualized. There is mild pelvic floor prolapse. ABDOMINAL WALL: There is a right periumbilical fat-containing hernia measuring 2.5 cm in diameter. There is mild anasarca. LYMPH NODES: No abnormal lymphadenopathy. VASCULAR: There is heavy calcification of the aorta and arterial structures. There is no aneurysm. PELVIC VISCERA: Senescent uterus. No adnexal masses. OSSEOUS STRUCTURES: Osteopenia. There are several chronic appearing compression fractures of the inferior thoracic and lumbar spine. There are chronic appearing compression fractures of T11, T12, L3, L4, and L5. There is a right total hip arthroplasty with associated streak artifact. No definite complication. Mild degenerative changes in the bilateral SI joints and left hip joint. CT/CT abdomen pelvis wo IV con IMPRESSION: 1. Significant gallbladder distention/dilatation with gallstone within the gallbladder neck. Cannot exclude acute cholecystitis. No definite wall thickening or pericholecystic inflammation or fluid. 2. Prior gastric bypass surgery. No bowel obstruction. 3. A Benitez catheter is present within a collapsed urinary bladder. 4. Hepatomegaly. No suspicious lesion. 5. Mild anasarca. 6. Osteopenia with chronic compression fractures of the spine. 7. Ancillary findings as discussed. Electronically signed by: Steov Em MD 08/17/2024 04:51 PM EDT
--- NOTE | ~2024-08-17 | US_ITS ---
CLINICAL HISTORY: ruq pain US GALLBLADDER Comparison: CT/ME/SR - CT ABDOMEN PELVIS WO IV CON - 08/17/24 16:01 EDT Findings: The common bile duct measures 5.4 mm. The gallbladder is distended up to 6.7 cm transversely. There is a 2.4 cm shadowing calculus in the gallbladder lumen. There is focal gallbladder wall thickening measuring 5.3 mm. There is otherwise normal wall thickness. No pericholecystic fluid. There is no sonographic Spencer sign. IMPRESSION: 1. Gallbladder hydrops and cholelithiasiswith no CT evidence for acute cholecystitis. 2. Nonspecific focal gallbladder wall thickening. 3. No biliary ductal dilatation. This document has been electronically signed by: Ying Gallego DO on 08/17/2024 17:53:48
--- NOTE | ~2024-08-17 | XR_ITS ---
CLINICAL HISTORY: Status post TLC placement 1 view chest x-ray Comparison: CR/SR - XR CHEST 2V - 05/18/23 10:39 EST Findings: Diffuse interstitial changes are stable and likely chronic. No superimposed consolidation. No pneumothorax or large pleural effusion. Cardiomediastinal silhouette is accentuated by portable technique and a suboptimal inspiratory effort. No acute fracture. IMPRESSION: 1. Hypoventilation. 2. Right central line tip is in the right atrium. Consider withdrawal of at least 3.5 cm for more optimal positioning. 3. No segmental pneumonia, significant pleural effusion or pulmonary edema. This document has been electronically signed by: Ying Gallego DO on 08/19/2024 13:18:37
--- NOTE | 2024-08-17 14:28 | ED.HEATRA ---
HPI - Head Injury General Chief complaint: General Medical Stated complaint: hit her head, weakness, confusion Time Seen by Provider: 08/17/24 14:56 Related Data Home Medications ?Medication ?Instructions ?Recorded ?Confirmed ascorbic acid (vitamin C) 1,000 mg 1,000 mg PO DAILY 04/02/20 08/18/24 tablet bupropion HCl 300 mg 24 hr tablet, 300 mg PO DAILY 04/02/20 08/18/24 extended release (Wellbutrin XL) cholecalciferol (vitamin D3) 50 50 mcg PO BID 04/02/20 08/18/24 mcg (2,000 unit) capsule ferrous sulfate 325 mg (65 mg 325 mg PO BEDTIME 04/02/20 08/18/24 iron) tablet (Feosol) multivitamin (Daily Multi-Vitamin 1 tab PO BEDTIME 04/02/20 08/18/24 tablet) escitalopram oxalate 20 mg tablet 20 mg PO DAILY 07/30/20 08/18/24 (Lexapro) bupropion HCl 150 mg 24 hr tablet, 150 mg PO DAILY 08/06/21 08/18/24 extended release propranolol 60 mg capsule,24 60 mg PO BEDTIME 09/19/21 08/18/24 hr,extended release lorazepam 0.5 mg tablet 0.5 mg PO DAILY PRN Anxiety 06/24/22 08/18/24 aripiprazole 10 mg tablet 10 mg PO DAILY 12/17/22 08/18/24 calcium 250 mg-magnesium 40 mg-D3 1 tab PO DAILY 01/18/23 08/18/24 125 unit-zinc 3.93sm-dvy-cetr tablet (Calcium Citrate Plus) ropinirole 0.25 mg tablet 0.25 mg PO BEDTIME 05/24/23 08/18/24 primidone 50 mg tablet 50 mg PO BEDTIME 10/12/23 08/18/24 alendronate 70 mg tablet (Fosamax) 70 mg PO [place] 08/17/24 08/18/24 hydrochlorothiazide 25 mg tablet 25 mg PO DAILY 08/17/24 08/18/24 omeprazole 40 mg capsule,delayed 40 mg PO DAILY@0630 08/17/24 08/18/24 release sennosides 8.6 mg-docusate sodium 1 tab PO DAILY 08/17/24 08/18/24 50 mg tablet (Senexon-S) Previous Rx's ?Medication ?Instructions ?Recorded 2 inch cloth tape #1 ea 09/03/23 4x4 sterile gauze pads #1 ea 09/03/23 bisacodyl 5 mg tablet,delayed 10 mg (2 x 5 mg) PO BEDTIME 90 04/28/24 release (Dulcolax (bisacodyl)) days #180 tabs Motegrity 2 mg tablet 2 mg PO DAILY #90 tabs 07/07/24 (prucalopride) Allergies Allergy/AdvReac Type Severity Reaction Status Date / Time sucralfate [Carafate] Allergy Intermediate hives Verified 08/17/24 14:34 NSAIDS (Non-Steroidal AdvReac Intermediate cannot Verified 08/17/24 14:34 Anti-Inflamma take due to gastric bypass history PMFSH Past Medical History Medical History Peripheral vascular disease SOULEYMANE (obstructive sleep apnea) Wound, open, hip or thigh with complication Encounter for general adult medical examination with abnormal findings Hip pain, right Preoperative cardiovascular examination Change in bowel movement Traumatic seroma of right thigh Postprocedural seroma of skin and subcutaneous tissue following other procedure Open wound of right hip and thigh Right rib fracture Menopause Pain management Pain management contract agreement Open wound of right lower leg with complication Shortness of breath Cough Edema Influenza A H1N1 infection Hospital discharge follow-up Cellulitis of right leg Varicose veins of right lower extremity with inflammation Enterococcus faecalis infection Abscess Hip pain, right Obesity Lymphedema Morbid obesity due to excess calories Pre-op evaluation Colon cancer screening Medicare annual wellness visit, subsequent Family history of anesthesia complication Back pain Arthritis Renal calculi Post-influenza syndrome Tremor Peripheral vascular disease Right bundle branch block (RBBB) Aortic valve calcification Mitral annular calcification Nocturnal hypoxemia COPD (chronic obstructive pulmonary disease) Restrictive lung disease Stasis edema of both lower extremities Nail fungus Chronic GERD Depression, major, recurrent Hypertension, essential Surgical History History of excision of lesion (10/20/23) History of total hip arthroplasty S/P gastric bypass History of surgery on lower extremity (01/25/23) History of surgery H/O colonoscopy History of cataract extraction History of bilateral tubal ligation History of tonsillectomy Family History Family History Father No problems noted. Mother Alzheimer's disease Maternal Grandmother Cancer Maternal Grandfather No problems noted. Paternal Grandfather No problems noted. Paternal Grandmother No problems noted. Maternal Aunt Cancer Sister Colon cancer Son No problems noted. Daughter No problems noted. Social History Social History Household Members: None Household Members Other:: daughter Housing: House Housing Other:: mobile home Are you a primary hospice spiritual care coordinator to a significant other at home: No Do you presently have visiting nurse or other home services: No Alcohol intake: former Patient Tobacco Use Status: Former Tobacco user Tobacco use type: Cigarette Years Smoked: 40 Smoked in Last 30 Days: No e-Cigarette/Vaping Use: Currently Using Second Hand Smoke Exposure: No Use of substances other than those prescribed or required for medical reasons: No Currently Displaying Signs/Symptoms of Drug Intoxication Withdrawal: No Have you been hit, kicked, punched, or otherwise hurt by someone within the past year? If so, by whom?: No Advance Directives: Yes Advance Directives on File: Yes Advance Directives Date on File: 03/13/15 Recently lost weight without trying: No Nutrition Risks: Anorexia Patient : No service: No Current occupational status: retired and other Current occupation: right handed Cognitive needs: No Hearing needs: No Vision needs: No Physical Exam Vital Signs: Vital Signs: Last Vital Signs Temp 97.2 F 08/26/24 12:29 Pulse 92 08/26/24 12:29 Resp 16 08/26/24 12:29 BP 120/66 08/26/24 12:29 Pulse Ox 97 08/26/24 12:29 O2 Del Method Room Air 08/26/24 12:29 O2 Flow Rate 1 08/22/24 06:00 BMI result Body Mass Index 38.5 Course Course Course Narrative: This is a Rapid Medical Exam performed in triage by Lesley Ames PA-C. Full HPI, ROS and PE to be performed by primary ED provider. 78 yo F w/PMhx SOULEYMANE, HTN, depression, COPD, presenting to the ED c/o ?suspected fall on Wednesday w/+HS, Headache, diarrhea & confusion following incident. Also reports lethargy & weakness. PE: HYPOtensive 60/31 in triage, in wheelchair Plan: EKG, labs, UA, Head/C-spine CT Medications Administered Generic Name Dose Route Start Last Admin Trade Name José Luis PRN Reason Stop Dose Admin Apixaban 2.5 mg 08/24/24 21:00 08/26/24 08:33 Apixaban 2.5 Mg Tablet PO 2.5 mg BID KENNEDY Administration Piperacillin Sod/Tazobactam 100 mls @ 200 mls/hr 08/18/24 06:00 08/26/24 06:01 Sod 4.5 gm/ Sodium Chloride IV Infused Q12H KENNEDY Infusion Dextrose 1,000 mls @ 75 mls/hr 08/26/24 07:45 08/26/24 08:33 D5w IVCONT 08/27/24 10:24 75 mls/hr .[id number] KENNEDY Administration Lactulose 30 gm 08/19/24 09:45 08/26/24 08:34 Lactulose 20 Gm/30 Ml Solution PO Not Given BID KENNEDY Metoprolol Tartrate 25 mg 08/24/24 20:00 08/26/24 08:33 Metoprolol Tartrate 25 Mg Tablet PO 25 mg Q12H KENNEDY Administration Protocol Simethicone 80 mg 08/19/24 09:43 08/19/24 09:53 Simethicone 80 Mg Tab.Chew PO 80 mg QIDWMHS PRN Administration flatulence Sodium Chloride 3 ml 08/18/24 00:00 08/26/24 08:24 0.9 % Sodium Chloride Flush 3 Ml Syringe IVFLUSH Not Given QSHIFT KENNEDY Discontinued Medications Generic Name Dose Route Start Last Admin Trade Name José Luis PRN Reason Stop Dose Admin Ceftriaxone Sodium 2 gm 08/17/24 15:00 08/17/24 15:12 Ceftriaxone Sodium 2 Gm Vial IVPUSH 08/17/24 15:01 2 gm ONCE ONE Administration Heparin Sodium (Porcine) 5,000 unit 08/17/24 17:45 08/24/24 09:45 Heparin Sodium,Porcine 5,000 Unit/Ml Vial SUBCUT 5,000 unit Q8H KENNEDY Administration Sodium Chloride 1,000 mls @ 999 mls/hr 08/17/24 15:00 08/17/24 15:12 Ns IV 08/17/24 16:00 Infused .Q1H1M KENNEDY Infusion Sodium Chloride 1,000 mls @ 999 mls/hr 08/17/24 15:00 08/17/24 17:18 Ns IV 08/17/24 16:00 Infused .Q1H1M KENNEDY Infusion Vancomycin HCl 2,000 mg in 500 mls @ 250 mls/hr 08/17/24 15:15 08/17/24 17:18 Vancomycin/Ns IV 08/17/24 17:14 Infused ONCE ONE Infusion Phenylephrine HCl 20 mg/ 252 mls @ 0 mls/hr 08/17/24 15:30 08/17/24 22:11 Sodium Chloride IVCONT Infused .Q0M KENNEDY Titration Protocol Per Protocol Sodium Chloride 1,000 mls @ 999 mls/hr 08/17/24 15:45 08/17/24 16:29 Ns IV 08/17/24 16:45 Infused .Q1H1M KENNEDY Infusion Piperacillin Sod/Tazobactam 100 mls @ 200 mls/hr 08/17/24 17:18 08/17/24 19:10 Sod 4.5 gm/ Sodium Chloride IV 08/17/24 17:47 Infused ONCE ONE Infusion Albumin Human 100 mls @ 133.333 mls/hr 08/17/24 17:45 08/17/24 20:39 Kedbumin 25 % IV 08/17/24 19:29 Infused Q1H KENNEDY Infusion Norepinephrine Bitartrate 8 mg in 250 mls @ 0 mls/hr 08/17/24 19:15 08/22/24 13:03 Levophed IVCONT Infused .Q0M KENNEDY Titration Protocol Per Protocol Sodium Bicarbonate 150 meq/ 1,000 mls @ 100 mls/hr 08/18/24 01:00 08/18/24 21:50 Dextrose IV Infused .Q10H KENNEDY Infusion Albumin Human 100 mls @ 100 mls/hr 08/18/24 02:00 08/18/24 21:04 Kedbumin 25 % IV 08/18/24 20:59 Infused Q6H KENNEDY Infusion Calcium Gluconate 2 gm in 100 mls @ 50 mls/hr 08/18/24 08:00 08/18/24 11:07 Calcium Gluconate IV 08/18/24 09:59 Infused ONCE ONE Infusion Potassium Phosphate 15 mmol in 250 mls @ 62.5 mls/hr 08/18/24 21:45 08/19/24 06:12 Kphos IV 08/19/24 05:44 Infused Q4H KENNEDY Infusion Calcium Gluconate 2 gm in 100 mls @ 50 mls/hr 08/18/24 21:44 08/19/24 00:08 Calcium Gluconate IV 08/18/24 23:43 Infused ONCE ONE Infusion Calcium Gluconate 2 gm in 100 mls @ 50 mls/hr 08/19/24 08:00 08/19/24 10:26 Calcium Gluconate IV 08/19/24 09:59 Infused ONCE ONE Infusion Hyaluronidase Human 15 unit/ 1 mls @ 0 mls/hr 08/19/24 20:18 08/19/24 21:35 Sodium Chloride SUBCUT 08/19/24 20:19 0.1 mls/hr ONCE ONE Administration As Directed Albumin Human 100 mls @ 100 mls/hr 08/21/24 08:00 08/21/24 15:06 Kedbumin 25 % IV 08/21/24 14:59 Infused Q6H KENNEDY Infusion Vancomycin HCl 500 mg/ Sodium 110 mls @ 110 mls/hr 08/22/24 07:00 08/22/24 09:52 Chloride IV 08/22/24 07:59 Infused ONCE ONE Infusion Vancomycin HCl 500 mg/ Sodium 110 mls @ 110 mls/hr 08/24/24 09:00 08/24/24 11:01 Chloride IV 08/24/24 09:59 Infused ONCE ONE Infusion Vancomycin HCl 500 mg/ Sodium 110 mls @ 110 mls/hr 08/26/24 08:00 08/26/24 09:33 Chloride IV 08/26/24 08:59 Infused ONCE ONE Infusion Metoprolol Tartrate 12.5 mg 08/22/24 09:30 08/23/24 07:50 Metoprolol Tartrate 12.5 Mg Halftab PO 12.5 mg BID KENNEDY Administration Protocol Metoprolol Tartrate 12.5 mg 08/23/24 18:00 08/24/24 17:28 Metoprolol Tartrate 12.5 Mg Halftab PO 08/24/24 18:00 12.5 mg Q6H KENNEDY Administration Protocol Midazolam HCl 2 mg 08/19/24 11:32 08/19/24 11:35 Midazolam Hcl 2 Mg/2 Ml Vial IVPUSH 08/19/24 11:33 2 mg ONCE ONE Administration Morphine Sulfate 0.5 mg 08/17/24 20:00 08/17/24 20:24 Morphine Sulfate 2 Mg/Ml Cartridge IVPUSH 0.5 mg Q6H PRN Administration Pain, Severe (Pain Scale 7-10) Protocol Morphine Sulfate 0.5 mg 08/17/24 23:24 08/19/24 10:11 Morphine Sulfate 2 Mg/Ml Cartridge IVPUSH 0.5 mg Q4H PRN Administration Pain, Severe (Pain Scale 7-10) Protocol Phentolamine Mesylate 10 mg 08/19/24 09:26 08/19/24 09:50 Phentolamine Mesylate 5 Mg Vial IVPUSH 08/19/24 09:27 10 mg ONCE ONE Administration Phentolamine Mesylate 10 mg 08/19/24 09:27 08/19/24 10:29 Phentolamine Mesylate 5 Mg Vial SUBCUT 08/19/24 09:28 10 mg ONCE ONE Administration Phentolamine Mesylate 5 mg 08/19/24 11:23 08/19/24 12:03 Phentolamine Mesylate 5 Mg Vial IVPUSH 08/19/24 11:24 5 mg ONCE ONE Administration Phentolamine Mesylate 5 mg 08/19/24 11:24 08/19/24 12:37 Phentolamine Mesylate 5 Mg Vial SUBCUT 08/19/24 11:25 5 mg ONCE ONE Administration Phentolamine Mesylate 10 mg 08/19/24 11:26 08/19/24 12:30 Phentolamine Mesylate 5 Mg Vial SUBCUT 08/19/24 11:27 10 mg ONCE ONE Administration Phentolamine Mesylate 10 mg 08/19/24 20:16 08/19/24 21:34 Phentolamine Mesylate 5 Mg Vial SUBCUT 08/19/24 20:17 10 mg ONCE ONE Administration Potassium Chloride 60 meq 08/17/24 20:28 08/17/24 20:44 Potassium Chloride Packet 20 Meq Packet PO 08/17/24 20:29 60 meq ONCE ONE Administration Potassium Chloride 40 meq 08/19/24 08:00 08/19/24 08:25 Potassium Chloride Packet 20 Meq Packet PO 08/19/24 08:01 40 meq ONCE ONE Administration Potassium Chloride 40 meq 08/20/24 08:00 08/20/24 08:41 Potassium Chloride Packet 20 Meq Packet PO 08/20/24 08:01 40 meq ONCE ONE Administration Potassium Chloride 40 meq 08/21/24 08:00 08/21/24 08:08 Potassium Chloride Packet 20 Meq Packet PO 08/21/24 08:01 40 meq ONCE ONE Administration Potassium Chloride 20 meq 08/24/24 08:04 08/24/24 09:23 Potassium Chloride Er 20 Meq Tab.Er.Prt PO 08/24/24 08:05 20 meq ONCE ONE Administration Medical Decision Making Lab Data 08/24/24 06:18 08/26/24 06:08 Labs: Lab Results 08/17/24 08/17/24 08/17/24 Range/Units 14:50 15:09 15:51 WBC 10.1 (4.8-10.8) X10*3/uL RBC 4.23 (4.20-5.50) X10*6/uL Hgb 13.4 (12.0-16.0) g/dl Hct 39.5 (37.0-47.0) % MCV 93.4 (80.0-98.0) fL MCH 31.7 (27.0-33.0) pg MCHC 33.9 (31.0-35.0) g/dl RDW 13.3 (11.0-16.0) % Plt Count 207 (160-400) X10*3/uL MPV 10.3 (9.4-12.3) fL Immature Gran % (Auto) Cancelled Neut % (Auto) Cancelled Lymph % (Auto) Cancelled Swain % (Auto) Cancelled Eos % (Auto) Cancelled Baso % (Auto) Cancelled Lymph # (Auto) Cancelled Swain # (Auto) Cancelled Eos # (Auto) Cancelled Baso # (Auto) Cancelled Abs Immat Gran (auto) Cancelled Absolute Neuts (auto) Cancelled Absolute Nucleated RBC 0.000 (0.0-0.012) X10*3/uL Nucleated RBC % (auto) 0.0 (0.0-0.2) /100WBC Neutrophils % (Manual) 89 H (45-73) % Band Neutrophils % 8 H (3-5) % Monocytes % (Manual) 1 L (2-11) % Metamyelocytes % 2 % Abs Neuts (Manual) 9.8 H (2.0-8.3) X10*3/uL Monocytes # (Manual) 0.1 (0.1-1.2) X10*3/uL Metamyelocytes # 0.2 X10*3/uL Toxic Vacuolation PRESENT Platelet Estimate NORMAL (NORMAL) Plt Morphology Comment NORMAL RBC Morphology NOTED Reji Cells 3+ (>5) /OIF Sodium 132 L (135-145) mmol/L Potassium 3.2 L D (3.3-5.1) mmol/L Chloride 96 (96-108) mmol/L Carbon Dioxide 20 L (22-29) mmol/L Anion Gap 19 (12-20) BUN 88 H (9-16) mg/dL Creatinine 4.79 H* (0.5-1.4) mg/dL Estim Creat Clear Calc 8.9 Estimated GFR 9 Random Glucose 103 (60-115) mg/dL Lactic Acid 2.2 H* (0.5-2.0) mmol/L Calcium 8.0 L D (8.4-10.2) mg/dL Magnesium 2.4 (1.6-2.6) mg/dL Total Bilirubin 0.7 (0.0-1.0) mg/dL Direct Bilirubin 0.5 (0.0-0.5) mg/dL AST 29 (5-31) U/L ALT 114 H (0-31) U/L Alkaline Phosphatase 225 H (39-117) U/L Total Creatine Kinase 171 H (26-140) U/L Troponin I High Sens 16.9 D (<3.5-17.0) ng/L Total Protein 5.8 L (6.5-8.0) g/dL Albumin 2.9 L (3.5-5.0) g/dL Stool Occult Blood NEGATIVE (NEGATIVE) Ethyl Alcohol < 10 mg/dL Influenza Type A (PCR) NEGATIVE (Negative) Influenza Type B (PCR) NEGATIVE (Negative) RSV RNA Qual (PCR) NEGATIVE (Negative) SARS-CoV-2 RNA (RT-PCR) NEGATIVE (Negative) Blood Type O Positive Antibody Screen NEGATIVE Discharge Plan Discharge Clinical Impression: Acute hypotension Patient Disposition: Admitted As Inpatient Interventions: Admission Worksheet (ED) Last Done: 08/17/24 18:56 Discharge Date/Time: 08/17/24 18:56
--- NOTE | 2024-08-17 14:32 | ECG_ITS ---
Test Reason : chest pain Blood Pressure : */* mmHG Vent. Rate : 102 BPM Atrial Rate : * BPM P-R Int : * ms QRS Dur : 150 ms QT Int : 412 ms P-R-T Axes : * 121 -19 degrees QTcB Int : 536 ms Atrial fibrillation with rapid ventricular response Right bundle branch block Anterior infarct , age undetermined T wave abnormality, consider inferior ischemia Abnormal ECG When compared with ECG of 25-Jan-2023 06:43, Significant changes have occurred Referred By: Lesley Ames Electronically Signed By: Eric Flores
--- NOTE | 2024-08-17 14:59 | ED.GENADULT ---
HPI - General Adult General Chief complaint: General Medical Stated complaint: hit her head, weakness, confusion Time Seen by Provider: 08/17/24 14:56 History of Present Illness HPI narrative: COPD, restrictive lung disease secondary to morbid obesty with BMI >50, htn, mood disorder, chronic venous stasis dermatitis, lymphedema, PVD, RBBB, admitted to general surgeryPresents today with having increased generalized malaise weakness. Two point that she fell a couple days ago hitting her head. Sent in for further evaluation was noted to have an extremely low blood pressure. Patient denies any specific chest pain or abdominal pain. Feels generally weak. Related Data Home Medications ?Medication ?Instructions ?Recorded ?Confirmed ascorbic acid (vitamin C) 1,000 mg 1,000 mg PO QAM 04/02/20 07/26/24 tablet bupropion HCl 300 mg 24 hr tablet, 300 mg PO QAM 04/02/20 07/26/24 extended release (Wellbutrin XL) cholecalciferol (vitamin D3) 50 50 mcg PO QPM 04/02/20 07/26/24 mcg (2,000 unit) capsule ferrous sulfate 325 mg (65 mg 325 mg PO QPM 04/02/20 07/26/24 iron) tablet (Feosol) multivitamin (Daily Multi-Vitamin 1 tab PO QPM 04/02/20 07/26/24 tablet) escitalopram oxalate 20 mg tablet 20 mg PO QAM 07/30/20 07/26/24 (Lexapro) bupropion HCl 150 mg 24 hr tablet, 150 mg PO QAM 08/06/21 07/26/24 extended release propranolol 60 mg capsule,24 60 mg PO BEDTIME 09/19/21 07/26/24 hr,extended release lorazepam 0.5 mg tablet 0.5 mg PO DAILY PRN Anxiety 06/24/22 07/26/24 aripiprazole 10 mg tablet 10 mg PO QAM 12/17/22 07/26/24 calcium 250 mg-magnesium 40 mg-D3 1 tab PO QAM 01/18/23 07/26/24 125 unit-zinc [id number] tablet (Calcium Citrate Plus) ropinirole 0.25 mg tablet 0.25 mg PO BEDTIME 05/24/23 07/26/24 primidone 50 mg tablet 50 mg PO BEDTIME 10/12/23 07/26/24 Previous Rx's ?Medication ?Instructions ?Recorded 2 inch cloth tape #1 ea 09/03/23 4x4 sterile gauze pads #1 ea 09/03/23 bisacodyl 5 mg tablet,delayed 10 mg (2 x 5 mg) PO BEDTIME 90 04/28/24 release (Dulcolax (bisacodyl)) days #180 tabs omeprazole 40 mg capsule,delayed 40 mg PO DAILY #90 caps 04/28/24 release hydrochlorothiazide 25 mg tablet 25 mg PO QAM #90 tabs 05/07/24 Motegrity 2 mg tablet 2 mg PO DAILY #90 tabs 07/07/24 (prucalopride) alendronate 70 mg tablet (Fosamax) 70 mg PO QWEEK 90 days #13 tabs 07/13/24 Allergies Allergy/AdvReac Type Severity Reaction Status Date / Time sucralfate [Carafate] Allergy Intermediate hives Verified 08/17/24 14:34 NSAIDS (Non-Steroidal AdvReac Intermediate cannot Verified 08/17/24 14:34 Anti-Inflamma take due to gastric bypass history Review of Systems Review of Systems: Positive generalized malaise [facility] Past Medical History Attestation statement: The following information was validated with the patient. Medical History SOULEYMANE (obstructive sleep apnea) Wound, open, hip or thigh with complication Encounter for general adult medical examination with abnormal findings Hip pain, right Preoperative cardiovascular examination Change in bowel movement Traumatic seroma of right thigh Postprocedural seroma of skin and subcutaneous tissue following other procedure Open wound of right hip and thigh Peripheral vascular disease Right rib fracture Menopause Pain management Pain management contract agreement Open wound of right lower leg with complication Shortness of breath Cough Edema Influenza A H1N1 infection Hospital discharge follow-up Cellulitis of right leg Varicose veins of right lower extremity with inflammation Enterococcus faecalis infection Abscess Hip pain, right Obesity Lymphedema Morbid obesity due to excess calories Pre-op evaluation Colon cancer screening Medicare annual wellness visit, subsequent Family history of anesthesia complication Back pain Arthritis Renal calculi Post-influenza syndrome Tremor Peripheral vascular disease Right bundle branch block (RBBB) Aortic valve calcification Mitral annular calcification Nocturnal hypoxemia COPD (chronic obstructive pulmonary disease) Restrictive lung disease Stasis edema of both lower extremities Nail fungus Chronic GERD Depression, major, recurrent Hypertension, essential Surgical History History of excision of lesion (10/20/23) History of total hip arthroplasty S/P gastric bypass History of surgery on lower extremity (01/25/23) History of surgery H/O colonoscopy History of cataract extraction History of bilateral tubal ligation History of tonsillectomy Family History Family History Father No problems noted. Mother Alzheimer's disease Maternal Grandmother Cancer Maternal Grandfather No problems noted. Paternal Grandfather No problems noted. Paternal Grandmother No problems noted. Maternal Aunt Cancer Sister Colon cancer Son No problems noted. Daughter No problems noted. Social History Social History Household Members: Children Household Members Other:: daughter Housing: House Housing Other:: mobile home Are you a primary managed care analyst to a significant other at home: No Do you presently have visiting nurse or other home services: No Alcohol intake: former Patient Tobacco Use Status: Former Tobacco user Tobacco use type: Cigarette Years Smoked: 40 Smoked in Last 30 Days: No e-Cigarette/Vaping Use: Currently Using Second Hand Smoke Exposure: No Use of substances other than those prescribed or required for medical reasons: No Advance Directives: Yes Advance Directives on File: Yes Advance Directives Date on File: 03/13/15 service: No Current occupational status: retired and other Current occupation: right handed Cognitive needs: No Hearing needs: No Vision needs: No Physical Exam ED Vital Signs: Vital Signs - 24 hr 08/17/24 14:29 08/17/24 14:46 08/17/24 14:55 Temperature 96.9 F Pulse Rate 101 H 88 115 H Respiratory Rate 18 21 H 18 Blood Pressure 60/31 L 64/38 L 55/36 L Pulse Oximetry 95 94 Oxygen Delivery Method Room Air Room Air Room Air Oxygen Flow Rate 98 08/17/24 15:14 08/17/24 15:15 08/17/24 15:26 Temperature Pulse Rate 80 88 83 Respiratory Rate 13 Blood Pressure 73/35 L 69/37 L 71/37 L Pulse Oximetry 94 Oxygen Delivery Method Room Air Room Air Oxygen Flow Rate 98 08/17/24 15:30 08/17/24 15:55 08/17/24 16:00 Temperature Pulse Rate 68 68 71 Respiratory Rate Blood Pressure 72/37 L 88/45 L 88/44 L Pulse Oximetry Oxygen Delivery Method Room Air Oxygen Flow Rate 98 08/17/24 16:26 08/17/24 16:57 Temperature Pulse Rate 68 86 Respiratory Rate 18 16 Blood Pressure 103/50 L 118/48 L Pulse Oximetry Oxygen Delivery Method Room Air Room Air Oxygen Flow Rate 96 95 BMI result Body Mass Index 38.5 Appearance: toxic appearing female weak generalized malaise Eyes: Pupils equal, round and reactive to light. ENT: Pharynx normal. Neck: Normal inspection. Neck supple. No lymph nodes noted. No crepitus CVS: Normal heart rate and rhythm. Pulses normal. Normal S1 and S2 Respiratory: No respiratory distress. Breath sounds normal. No Wheezing. No rales Abdomen: Soft and nontender. No rigidity. No distention. good BS x4 Skin: Skin warm and dry. Normal skin color. Normal skin turgor. rectal exam green stool heme negative Extremities: No lower extremity edema. Neurovascular intact to all extremities. No Lacerations. No Rash Neuro: Oriented X 3. No motor deficit. Medications Administered Generic Name Dose Route Start Last Admin Trade Name Freq PRN Reason Stop Dose Admin Vancomycin HCl 2,000 mg in 500 mls @ 250 mls/hr 08/17/24 15:15 08/17/24 15:12 Vancomycin/Ns IV 08/17/24 17:14 250 mls/hr ONCE ONE Administration Phenylephrine HCl 20 mg/ 252 mls @ 0 mls/hr 08/17/24 15:30 08/17/24 15:55 Sodium Chloride IVCONT 1.5 mcg/kg/min .Q0M KENNEDY 94.69 mls/hr Titration Protocol Per Protocol Discontinued Medications Generic Name Dose Route Start Last Admin Trade Name Freq PRN Reason Stop Dose Admin Ceftriaxone Sodium 2 gm 08/17/24 15:00 08/17/24 15:12 Ceftriaxone Sodium 2 Gm Vial IVPUSH 08/17/24 15:01 2 gm ONCE ONE Administration Sodium Chloride 1,000 mls @ 999 mls/hr 08/17/24 15:00 08/17/24 15:12 Ns IV 08/17/24 16:00 Infused .Q1H1M KENNEDY Infusion Sodium Chloride 1,000 mls @ 999 mls/hr 08/17/24 15:00 08/17/24 15:05 Ns IV 08/17/24 16:00 999 mls/hr .Q1H1M KENNEDY Administration Sodium Chloride 1,000 mls @ 999 mls/hr 08/17/24 15:45 08/17/24 16:29 Ns IV 08/17/24 16:45 Infused .Q1H1M KENNEDY Infusion Medical Decision Making Medical Decision Making [facility] Narrative: 78-year-old female presents today with having generalized malaise weakness was noted to have a low blood pressure might have hit her head. We did an initial EKG on the patient which looks like an atrial fibrillation pattern heart rate was about 100 with a right bundle branch block noted. No acute ST segment elevation there is T-wave inversion in lead V1 V2 V3 these findings are old. The atrial fibrillation is new. Patient had a blood pressure that was low question etiology. Chest x-ray by my interpretation was negative for pneumonia no pneumothorax. Patient's had no urine in her bladder. A Benitez was placed for in an out. Patient received 2 full L of fluids blood pressure is still in the 60s 70s over 50. Then was started on phenylephrine. The phenylephrine seems to have made the blood pressure improved. Cultures are obtained antibiotic was started for empiric coverage. Patient was given 2 g of Rocephin along with additional vancomycin for MRSA coverage. Patient's CT scan of the head by my interpretation was negative for bleed no fracture. CT scan of the C-spine was read by Radiology is negative CT scan of the chest abdomen pelvis was interpreted by radiology as possible gallbladder distention. An ultrasound is being ordered. Patient will require intensive care unit as patient's blood pressure was low. Requiring pressors. Blood pressure now approximately 100/60. 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 08/17/24 14:50 08/17/24 14:50 Labs: Lab Results 08/17/24 08/17/24 08/17/24 Range/Units 14:50 15:09 15:51 WBC 10.1 (4.8-10.8) X10*3/uL RBC 4.23 (4.20-5.50) X10*6/uL Hgb 13.4 (12.0-16.0) g/dl Hct 39.5 (37.0-47.0) % MCV 93.4 (80.0-98.0) fL MCH 31.7 (27.0-33.0) pg MCHC 33.9 (31.0-35.0) g/dl RDW 13.3 (11.0-16.0) % Plt Count 207 (160-400) X10*3/uL MPV 10.3 (9.4-12.3) fL Immature Gran % (Auto) Cancelled Neut % (Auto) Cancelled Lymph % (Auto) Cancelled Terrell % (Auto) Cancelled Eos % (Auto) Cancelled Baso % (Auto) Cancelled Lymph # (Auto) Cancelled Terrell # (Auto) Cancelled Eos # (Auto) Cancelled Baso # (Auto) Cancelled Abs Immat Gran (auto) Cancelled Absolute Neuts (auto) Cancelled Absolute Nucleated RBC 0.000 (0.0-0.012) X10*3/uL Nucleated RBC % (auto) 0.0 (0.0-0.2) /100WBC Neutrophils % (Manual) 89 H (45-73) % Band Neutrophils % 8 H (3-5) % Monocytes % (Manual) 1 L (2-11) % Metamyelocytes % 2 % Abs Neuts (Manual) 9.8 H (2.0-8.3) X10*3/uL Monocytes # (Manual) 0.1 (0.1-1.2) X10*3/uL Metamyelocytes # 0.2 X10*3/uL Toxic Vacuolation PRESENT Platelet Estimate NORMAL (NORMAL) Plt Morphology Comment NORMAL RBC Morphology NOTED Reji Cells 3+ (>5) /OIF Sodium 132 L (135-145) mmol/L Potassium 3.2 L D (3.3-5.1) mmol/L Chloride 96 (96-108) mmol/L Carbon Dioxide 20 L (22-29) mmol/L Anion Gap 19 (12-20) BUN 88 H (9-16) mg/dL Creatinine 4.79 H* (0.5-1.4) mg/dL Estim Creat Clear Calc 8.9 Estimated GFR 9 Random Glucose 103 (60-115) mg/dL Lactic Acid 2.2 H* (0.5-2.0) mmol/L Calcium 8.0 L D (8.4-10.2) mg/dL Magnesium 2.4 (1.6-2.6) mg/dL Total Bilirubin 0.7 (0.0-1.0) mg/dL Direct Bilirubin 0.5 (0.0-0.5) mg/dL AST 29 (5-31) U/L ALT 114 H (0-31) U/L Alkaline Phosphatase 225 H (39-117) U/L Total Creatine Kinase 171 H (26-140) U/L Troponin I High Sens 16.9 D (<3.5-17.0) ng/L Total Protein 5.8 L (6.5-8.0) g/dL Albumin 2.9 L (3.5-5.0) g/dL Stool Occult Blood NEGATIVE (NEGATIVE) Ethyl Alcohol < 10 mg/dL Influenza Type A (PCR) NEGATIVE (Negative) Influenza Type B (PCR) NEGATIVE (Negative) RSV RNA Qual (PCR) NEGATIVE (Negative) SARS-CoV-2 RNA (RT-PCR) NEGATIVE (Negative) Blood Type O Positive Antibody Screen NEGATIVE Independent Interpretation I performed an independent interpretation of an: EKG ( please see above), Plain X-Ray ( grossly negative) and CT Scan ( CT head negative) Radiology Impression Discussion of test interpretation with radiology: I have reviewed the radiologist's reading. External Record Review External record reviewed: Inpatient record and Office record Social Determinants Patient?s care significantly limited by Social Determinants of Health including: Problems related to primary support group Critical Care Time Critical Care Time Critical Care Time: Yes Total Critical Care Time: 50 Attestation: I have personally provided 50 minutes of critical care time exclusive of time spent on separately billable procedures. Time includes review of lab data, radiology results, discussion with consultants, and monitoring for potential decompensation. Interventions were performed as documented above Discharge Plan Discharge Clinical Impression: Acute hypotension Patient Disposition: Admitted As Inpatient Prescriptions: No Action hydrochlorothiazide 25 mg tablet 25 mg PO QAM Qty: 90 2RF Motegrity 2 mg tablet 2 mg PO DAILY Qty: 90 3RF alendronate [Fosamax] 70 mg tablet 70 mg PO QWEEK 90 Days Qty: 13 1RF primidone 50 mg Tablet 50 mg PO BEDTIME Calcium Citrate Plus [id number] Tablet 1 tab PO QAM escitalopram oxalate [Lexapro] 20 mg tablet 20 mg PO QAM bupropion HCl [Wellbutrin XL] 300 mg tablet extended release 24 hr 300 mg PO QAM ascorbic acid (vitamin C) 1,000 mg tablet 1,000 mg PO QAM cholecalciferol (vitamin D3) 50 mcg (2,000 unit) capsule 50 mcg PO QPM ferrous sulfate [Feosol] 325 mg (65 mg iron) tablet 325 mg PO QPM multivitamin [Daily Multi-Vitamin] Tablet 1 tab PO QPM bupropion HCl 150 mg tablet extended release 24 hr 150 mg PO QAM lorazepam 0.5 mg tablet 0.5 mg PO DAILY PRN (Reason: Anxiety) propranolol 60 mg capsule,extended release 24 hr 60 mg PO BEDTIME ropinirole 0.25 mg tablet 0.25 mg PO BEDTIME aripiprazole 10 mg tablet 10 mg PO QAM (DME) 4x4 sterile gauze pads See Rx Instructions .Route .MEDSUPPLY Qty: 1 0RF Rx Instructions: As directed (DME) 2 inch cloth tape See Rx Instructions .Route .MEDSUPPLY Qty: 1 0RF Rx Instructions: As directed omeprazole 40 mg capsule,delayed release(DR/EC) 40 mg PO DAILY Qty: 90 1RF Rx Instructions: open capsule and mix granules with apple sauce bisacodyl [Dulcolax (bisacodyl)] 5 mg tablet,delayed release (DR/EC) 10 mg PO BEDTIME 90 Days Qty: 180 0RF Print Language: Hungarian
[2024-08-17 15:01] LABS: Hematocrit 39.5 % (37.0-47.0); Hemoglobin 13.4 g/dl (12.0-16.0); Mean Corpuscular HGB Conc 33.9 g/dl (31.0-35.0); Mean Corpuscular Hemoglobin 31.7 pg (27.0-33.0); Mean Corpuscular Volume 93.4 fL (80.0-98.0); Mean Platelet Volume 10.3 fL (9.4-12.3); Platelet Count 207 X10*3/uL (160-400); Red Blood Count 4.23 X10*6/uL (4.20-5.50); Red Cell Distribution Width 13.3 % (11.0-16.0); WBC ABN SCTR FOR CBC 1
[2024-08-17] MEDS: 0.9 % Sodium Chloride 1,000 ML 999 ML IV ×3 (15:05→15:40)
[2024-08-17] MEDS: vancomycin/NS 2,000 MG/500 ML PLAST..BAG 250 MG IV (15:12)
[2024-08-17] MEDS: cefTRIAXone sodium 2 GM VIAL IVPUSH (15:12)
[2024-08-17 15:20] LABS: Troponin-I High Sensitivity 16.9 ng/L (<3.5-17.0)
[2024-08-17 15:24] LABS: Band Neutrophils Percent 8 % (3-5); Burr Cells 3+ (>5) /OIF; Metamyelocytes Percent 2 %; Monocytes Percent Manual 1 % (2-11); Neutrophils Percent Manual 89 % (45-73); Platelet Estimate NORMAL (NORMAL); Platelet Morphology Comment NORMAL; RBC Morphology NOTED; Toxic Vacuolation PRESENT
[2024-08-17 15:25] LABS: Metamyelocytes Absolute 0.2 X10*3/uL; Monocytes Absolute Manual 0.1 X10*3/uL (0.1-1.2); Neutrophils Absolute Manual 9.8 X10*3/uL (2.0-8.3); White Blood Count 10.1 X10*3/uL (4.8-10.8)
[2024-08-17] MEDS: Phenylephrine HCL 20 MG in 0.9 % Sodium Chloride 250 ML 31.56 MG IVCONT (15:26)
--- NOTE | 2024-08-17 15:31 | PC.NURSE ---
Pt's BP verified by manual cuff as 62/38; pt appeared extremely lethargic and MD made immediately aware; 2 ltr IVF's infused at this time with no change in BP; pt put in reverse Trendelenburg and is now A+OX4; denies dizziness/CP; FC inserted; no urine output at this time; pt aslo has an abscess that she's being treated for to R buttock; opened with iodaform gauze packing in place; pt afebrile; phenylephrine infusing per protocol; will cont to monitor/tx per orders
[2024-08-17 15:33] LABS: Alanine Aminotransferase 114 U/L (0-31); Albumin Level 2.9 g/dL (3.5-5.0); Alkaline Phosphatase 225 U/L (39-117); Anion Gap 19 (12-20); Aspartate Amino Transferase 29 U/L (5-31); Bilirubin Direct 0.5 mg/dL (0.0-0.5); Bilirubin Total 0.7 mg/dL (0.0-1.0); Blood Urea Nitrogen 88 mg/dL (9-16); Carbon Dioxide 20 mmol/L (22-29); Chloride 96 mmol/L (96-108); Creatinine Clr Calc Pharmacy 8.9; Estimated Glomerular Filt Rate 9; Glucose Random 103 mg/dL (60-115); Magnesium 2.4 mg/dL (1.6-2.6); Potassium 3.2 mmol/L (3.3-5.1); Sodium 132 mmol/L (135-145); Total Protein 5.8 g/dL (6.5-8.0)
[2024-08-17 15:36] LABS: Lactic Acid 2.2 mmol/L (0.5-2.0)
[2024-08-17 15:51] LABS: Influenza A PCR NEGATIVE (Negative); Influenza B PCR NEGATIVE (Negative); Resp Syncy Virus RNA Qual PCR NEGATIVE (Negative); SARS COV2 PCR INHOUSE NEGATIVE (Negative)
[2024-08-17 15:58] LABS: OBS Int Ctl Valid YES; OBS1 NEGATIVE (NEGATIVE)
[2024-08-17 16:15] LABS: Ethanol < 10 mg/dL
[2024-08-17 16:56] LABS: Reflex Lactate? Lactic Acid Added
[2024-08-17] MEDS: Piperacillin Sodium/Tazobactam 4.5 GM in 0.9 % Sodium Chloride 100 ML IV (18:34)
[2024-08-17] MEDS: Phenylephrine HCL 20 MG in 0.9 % Sodium Chloride 250 ML 94.69 MG IVCONT (18:35)
[2024-08-17] MEDS: Albumin Human 25 % 100 ML 133.33 ML IV ×2 (18:40→19:53)
[2024-08-17] MEDS: Heparin Sodium,Porcine 5,000 UNIT/ML VIAL 5000 UNIT SUBCUT ×2 (18:41→23:36)
--- NOTE | 2024-08-17 18:55 | PC.NURSE ---
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
[2024-08-17 19:05] LABS: ~Lactic Acid-LAB USE ONLY 1.4 mmol/L (0.5-2.0)
[2024-08-17] MEDS: Norepinephrine Bitartrate/D5W 8 MG/250 ML PLAST..BAG 7.83 MG IVCONT (19:44)
--- NOTE | 2024-08-17 20:01 | P.HPCC_ITS ---
History of Present Illness Date of Service: 08/17/24 Attending physician on admission: Thomas Woods Chief Complaint: Weakness/ Confusion The patient is a 78-year-old female with a past medical history of right hip wound ( s/p wound vac)? follows up with wound care x2 a week,? COPD, hypertension, mood disorder, chronic venous stasis dermatitis, lymphedema, peripheral vascular disease, SOULEYMANE, and mood disorder who presented to emergency department? with weakness and confusion.? Patient reported on Wednesday,? she sustained a fall,? where she hit her head and since? she has been feeling weak, has had headaches and periods of confusion.? On arrival to emergency department patient?s blood pressure 60/31,? tachycardic to 115. Mentating properly.? ?Laboratory data was significant for? sodium 132, potassium 3.2, BUN 88, creatinine 4.79, lactic acid 2.2, ALT 114, alk phos 225, CK 171, total protein 5.8 albumin 2.9 IMAGING:? ?HEAD/CERVICAL SPINE CT:? no acute traumatic finding ?CHEST CT: no acute infectious process ?Abdominal CT/ US: ?? Cholecystitis,? but in the? abdominal ultrasound Gallbladder hydrops and cholelithiasis, with No evidence for acute cholecystitis. ED COURSE:? ?Patient received 3 L bolus, ceftriaxone 2 g, vancomycin 2g,? Zosyn 4.5, and started on phenylephrine drip.? Review of Systems 2 Review of Systems: Yes all other systems are reviewed and are negative PMFSH Past Medical History Medical History SOULEYMANE (obstructive sleep apnea) Wound, open, hip or thigh with complication Encounter for general adult medical examination with abnormal findings Hip pain, right Preoperative cardiovascular examination Change in bowel movement Traumatic seroma of right thigh Postprocedural seroma of skin and subcutaneous tissue following other procedure Open wound of right hip and thigh Peripheral vascular disease Right rib fracture Menopause Pain management Pain management contract agreement Open wound of right lower leg with complication Shortness of breath Cough Edema Influenza A H1N1 infection Hospital discharge follow-up Cellulitis of right leg Varicose veins of right lower extremity with inflammation Enterococcus faecalis infection Abscess Hip pain, right Obesity Lymphedema Morbid obesity due to excess calories Pre-op evaluation Colon cancer screening Medicare annual wellness visit, subsequent Family history of anesthesia complication Back pain Arthritis Renal calculi Post-influenza syndrome Tremor Peripheral vascular disease Right bundle branch block (RBBB) Aortic valve calcification Mitral annular calcification Nocturnal hypoxemia COPD (chronic obstructive pulmonary disease) Restrictive lung disease Stasis edema of both lower extremities Nail fungus Chronic GERD Depression, major, recurrent Hypertension, essential Family History Family History Father No problems noted. Mother Alzheimer's disease Maternal Grandmother Cancer Maternal Grandfather No problems noted. Paternal Grandfather No problems noted. Paternal Grandmother No problems noted. Maternal Aunt Cancer Sister Colon cancer Son No problems noted. Daughter No problems noted. Surgical History Surgical History History of excision of lesion (10/20/23) History of total hip arthroplasty S/P gastric bypass History of surgery on lower extremity (01/25/23) History of surgery H/O colonoscopy History of cataract extraction History of bilateral tubal ligation History of tonsillectomy Social History Social History Household Members: None Household Members Other:: daughter Housing: House Housing Other:: mobile home Are you a primary plant health care technician to a significant other at home: No Do you presently have visiting nurse or other home services: No Alcohol intake: former Patient Tobacco Use Status: Former Tobacco user Tobacco use type: Cigarette Years Smoked: 40 Smoked in Last 30 Days: No e-Cigarette/Vaping Use: Currently Using Second Hand Smoke Exposure: No Use of substances other than those prescribed or required for medical reasons: No Currently Displaying Signs/Symptoms of Drug Intoxication Withdrawal: No Have you been hit, kicked, punched, or otherwise hurt by someone within the past year? If so, by whom?: No Advance Directives: Yes Advance Directives on File: Yes Advance Directives Date on File: 03/13/15 Recently lost weight without trying: No Nutrition Risks: Anorexia Patient : No service: No Current occupational status: retired and other Current occupation: right handed Cognitive needs: No Hearing needs: No Vision needs: No Meds Allergies Allergy/AdvReac Type Severity Reaction Status Date / Time sucralfate [Carafate] Allergy Intermediate hives Verified 08/17/24 14:34 NSAIDS (Non-Steroidal AdvReac Intermediate cannot Verified 08/17/24 14:34 Anti-Inflamma take due to gastric bypass history Active Medications: Current Medications Heparin Sodium (Porcine) (Heparin Sodium,Porcine 5,000 Unit/Ml Vial) 5,000 unit SUBCUT Q8H [facility] Last Admin: 08/17/24 18:41 Dose: 5,000 unit Phenylephrine HCl 20 mg/ (Sodium Chloride) 252 mls @ 0 mls/hr IVCONT .Q0M KENNEDY; Protocol Last Titration: 08/17/24 19:56 Dose: 1 mcg/kg/min, 63.13 mls/hr Norepinephrine Bitartrate (Levophed) 8 mg in 250 mls @ 0 mls/hr IVCONT .Q0M KENNEDY; Protocol Last Admin: 08/17/24 19:44 Dose: 0.05 mcg/kg/min, 7.83 mls/hr Pharmacy Consult (Consult Rx Vancomycin Dosing) 1 each MISCELLANE DAILY PRN PRN Reason: Consult order Home Medications ?Medication ?Instructions ?Recorded ?Confirmed ?Last Taken ?Type ascorbic acid (vitamin C) 1,000 mg 1,000 mg PO DAILY 04/02/20 08/18/24 01/24/23 History tablet bupropion HCl 300 mg 24 hr tablet, 300 mg PO DAILY 04/02/20 08/18/24 01/24/23 History extended release (Wellbutrin XL) cholecalciferol (vitamin D3) 50 50 mcg PO BID 04/02/20 08/18/24 01/24/23 History mcg (2,000 unit) capsule ferrous sulfate 325 mg (65 mg 325 mg PO BEDTIME 04/02/20 08/18/24 Unknown History iron) tablet (Feosol) multivitamin (Daily Multi-Vitamin 1 tab PO BEDTIME 04/02/20 08/18/24 01/24/23 History tablet) escitalopram oxalate 20 mg tablet 20 mg PO DAILY 07/30/20 08/18/24 01/24/23 History (Lexapro) bupropion HCl 150 mg 24 hr tablet, 150 mg PO DAILY 08/06/21 08/18/24 01/24/23 History extended release propranolol 60 mg capsule,24 60 mg PO BEDTIME 09/19/21 08/18/24 01/24/23 History hr,extended release lorazepam 0.5 mg tablet 0.5 mg PO DAILY PRN Anxiety 06/24/22 08/18/24 01/24/23 History aripiprazole 10 mg tablet 10 mg PO DAILY 12/17/22 08/18/24 01/24/23 History calcium 250 mg-magnesium 40 mg-D3 1 tab PO DAILY 01/18/23 08/18/24 01/24/23 History 125 unit-zinc 3.74br-rpd-spvh tablet (Calcium Citrate Plus) ropinirole 0.25 mg tablet 0.25 mg PO BEDTIME 05/24/23 08/18/24 Unknown History primidone 50 mg tablet 50 mg PO BEDTIME 10/12/23 08/18/24 Unknown History alendronate 70 mg tablet (Fosamax) 70 mg PO [place] 08/17/24 08/18/24 Unknown History hydrochlorothiazide 25 mg tablet 25 mg PO DAILY 08/17/24 08/18/24 Unknown History omeprazole 40 mg capsule,delayed 40 mg PO DAILY@0630 08/17/24 08/18/24 Unknown History release sennosides 8.6 mg-docusate sodium 1 tab PO DAILY 08/17/24 08/18/24 Unknown History 50 mg tablet (Senexon-S) Physical Exam 2 Vital Signs: Vital Signs: Last Vital Signs Temp 97.7 F 08/17/24 19:14 Pulse 58 08/17/24 19:56 Resp 19 08/17/24 19:56 BP 125/43 L 08/17/24 19:56 Pulse Ox 95 08/17/24 19:56 O2 Del Method Room Air 08/17/24 19:56 O2 Flow Rate 95 08/17/24 16:57 BMI result Body Mass Index 38.5 Sepsis focused exam performed at 1900 ?General:? Alert oriented x3 no acute distress.? Speaking full sentences.? Speech is well articulated, thought process is coherent.? Following all commands. ?HEENT:? Head is normocephalic, atraumatic, pupils equal round reactive to light accommodation bilaterally.? Extraocular movements appear intact.? Buccal mucosa is dry, Neck is supple ?Cardiac:? Clear S1-S2, no murmurs rubs or gallops. ?Pulmonary:? Clear to auscultation, no wheezes, rales or rhonchi. ?Abdomen:? ?Abdomen soft, non-tender, non-distended. Normal bowel sounds. No pulsatile mass. No hepatosplenomegaly. ?Musculoskeletal:? Moving all 4 extremities upon request a major joints, there is no crepitus or tenderness.? The strength is 5/5 bilaterally and throughout all 4 extremities.? Gait not assessed at this point. ?Neurologic:? cranial nerves 2-12 are grossly intact.? No focal deficits noted.Motor strength as above.?? ?Skin:Right hip wound, with purulent foul smell discharge? Vascular:? 2+ pulses upper and lower extremities distally.? Results Labs 08/18/24 04:43 08/18/24 04:43 Labs: Laboratory Results - last 24 hr 08/17/24 08/17/24 08/17/24 14:50 15:09 15:51 MCV 93.4 MCH 31.7 MCHC 33.9 RDW 13.3 Plt Count 207 MPV 10.3 Immature Gran % (Auto) Cancelled Neut % (Auto) Cancelled Lymph % (Auto) Cancelled [place] % (Auto) Cancelled Eos % (Auto) Cancelled Baso % (Auto) Cancelled Lymph # (Auto) Cancelled [place] # (Auto) Cancelled Eos # (Auto) Cancelled Baso # (Auto) Cancelled Abs Immat Gran (auto) Cancelled Absolute Neuts (auto) Cancelled Absolute Nucleated RBC 0.000 Nucleated RBC % (auto) 0.0 Neutrophils % (Manual) 89 H Band Neutrophils % 8 H Monocytes % (Manual) 1 L Metamyelocytes % 2 Abs Neuts (Manual) 9.8 H Monocytes # (Manual) 0.1 Metamyelocytes # 0.2 Toxic Vacuolation PRESENT Platelet Estimate NORMAL Plt Morphology Comment NORMAL RBC Morphology NOTED Reji Cells 3+ (>5) Anion Gap 19 Estim Creat Clear Calc 8.9 Estimated GFR 9 Random Glucose 103 Lactic Acid 2.2 H* Lactic Acid F/U @ 2Hr Calcium 8.0 L D Magnesium 2.4 Total Bilirubin 0.7 Direct Bilirubin 0.5 AST 29 ALT 114 H Alkaline Phosphatase 225 H Total Creatine Kinase 171 H Total Protein 5.8 L Albumin 2.9 L Stool Occult Blood NEGATIVE Ethyl Alcohol < 10 Influenza Type A (PCR) NEGATIVE Influenza Type B (PCR) NEGATIVE RSV RNA Qual (PCR) NEGATIVE SARS-CoV-2 RNA (RT-PCR) NEGATIVE Blood Type O Positive Antibody Screen NEGATIVE 08/17/24 18:45 MCV MCH MCHC RDW Plt Count MPV Immature Gran % (Auto) Neut % (Auto) Lymph % (Auto) [place] % (Auto) Eos % (Auto) Baso % (Auto) Lymph # (Auto) [place] # (Auto) Eos # (Auto) Baso # (Auto) Abs Immat Gran (auto) Absolute Neuts (auto) Absolute Nucleated RBC Nucleated RBC % (auto) Neutrophils % (Manual) Band Neutrophils % Monocytes % (Manual) Metamyelocytes % Abs Neuts (Manual) Monocytes # (Manual) Metamyelocytes # Toxic Vacuolation Platelet Estimate Plt Morphology Comment RBC Morphology Mystic Cells Anion Gap Estim Creat Clear Calc Estimated GFR Random Glucose Lactic Acid Lactic Acid F/U @ 2Hr 1.4 Calcium Magnesium Total Bilirubin Direct Bilirubin AST ALT Alkaline Phosphatase Total Creatine Kinase Total Protein Albumin Stool Occult Blood Ethyl Alcohol Influenza Type A (PCR) Influenza Type B (PCR) RSV RNA Qual (PCR) SARS-CoV-2 RNA (RT-PCR) Blood Type Antibody Screen Imaging Radiologist's Impressions: Impressions Head CT 08/17/24 14:32 IMPRESSION: No acute intracranial abnormality. Chronic changes as discussed Electronically signed by: Stevo Em MD 08/17/2024 04:56 PM EDT RP Chest CT 08/17/24 15:35 IMPRESSION: 1. Cardiomegaly with mild pulmonary interstitial edema. 2. Linear atelectasis in the lingula, and in both lower lobes. 3. Enlargement of the main pulmonary artery suggesting increased pulmonary pressures. 4. There are a few scattered pulmonary micronodules measuring up to 5 mm. One-year follow-up recommended in a high-risk patient. 5. 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 6. Osteopenia with numerous likely chronic thoracic compression fractures. Vertebra plana deformity of T8. These appear to be present on prior chest x-ray 05/18/2023. Electronically signed by: Stevo Em MD 08/17/2024 04:32 PM EDT RP Cervical Spine CT 08/17/24 15:59 IMPRESSION: 1. Diffuse osteopenia/osteoporosis. 2. No acute fracture or traumatic malalignment. 3. Chronic appearing mild compression deformity superior endplate of T3. 4. Moderate degenerative spondylosis. 5. Findings suggesting mild interstitial pulmonary edema. Electronically signed by: Stevo Em MD 08/17/2024 05:04 PM EDT RP Abdomen/Pelvis CT 08/17/24 16:01 IMPRESSION: 1. Significant gallbladder distention/dilatation with gallstone within the gallbladder neck. Cannot exclude acute cholecystitis. No definite wall thickening or pericholecystic inflammation or fluid. 2. Prior gastric bypass surgery. No bowel obstruction. 3. A Benitez catheter is present within a collapsed urinary bladder. 4. Hepatomegaly. No suspicious lesion. 5. Mild anasarca. 6. Osteopenia with chronic compression fractures of the spine. 7. Ancillary findings as discussed. Electronically signed by: Stevo Em MD 08/17/2024 04:51 PM EDT RP Assessment and Plan (1) Septic shock: Status: Acute (2) S/P total right hip arthroplasty: Status: Acute (3) ANIYA (acute kidney injury): Status: Acute (4) Greater trochanteric pain syndrome: Status: Acute Plan 78-year-old female with a past medical history of right hip wound ( s/p wound vac)? follows up with wound care x2 a week,? COPD, hypertension, mood disorder, chronic venous stasis dermatitis, lymphedema, peripheral vascular disease, SOULEYMANE, and mood disorder? admitted to ICU for the management of septic shock? likely from wound source Neuro:? ?Altered mental status/weakness:? patient sustained a fall on Wednesday with + ? head strike? and +? headaches.? head CT/cervical spine with no acute traumatic findings.? Altered mental status has resolved since fluid resuscitation.? Confusion and weakness due to sepsis.?? Cardiac:?? ?Septic shock- ? lactate elevated to 2.2,? sources likely right hip wound.? Received empiric antibiotics in the emergency department.? We will continue empiric antibiotics.? We will switch phenylephrine to norepinephrine drip.? Wean Levophed as tolerated? Pulmonary:?? ?No acute issues ? Renal:?? ANIYA-? ? BUN/creatinine? 80/4.79,? baseline? creatinine normal. Related to hypoperfusion, sepsis nonoliguric. ? Received appropriate resuscitation in the emergency department.? Continue to check renal induces and urine output GI:?? ?Transaminitis:? abdominal CT was concerning for possible cholecystitis,? but abdominal ultrasound did not show acute cholecystitis.? Transaminitis likely related due to septic shock.? Continue to trend. Endo:?No acute issues Heme/Onc:? ?No acute? issues ID:? ?Septic shock:? likely from? right hip wound. ? Patient has a right hip wound with purulent drainage, she had previous wound vac, she was seen in July of [address] Mosquera who advised for wound care.? She has been seeing wound care nurse 2 times a week,? according to daughter wound care nurse have requested imaging for concern of osteomyelitis. She also has hardware on the right hip.? No imaging done yet.? We will obtain CT.? Surgery consult.? Continue empiric antibiotics with vanco and Zosyn Blood cultures are pending Psych:? No acute issues. Misc:? no acute issues Diet: cardiac/ NPO at midnight for possible intervention tomorrow? Prophylaxis: ? Subcut heparin? Code? status: ? ? FULL CODE.? Critical care time: x 90 min of critical care time?
--- NOTE | 2024-08-17 20:01 | PHA.MEDREC ---
Pharmacy Consult ? Medication Reconciliation Pharmacy has completed the medication reconciliation. Spoke to patient to confirm medication list. Patient has a typed out list of home medications (which she said she updated a couple of weeks ago). She confirmed she takes both bupropion XL 150 mg and 300 mg daily in the morning. She takes vitamin D twice a day along with calcium+D. Patient said she uses both [email or web address] mail order pharmacy and [facility] on [address] in [place]. Called [facility] to confirm fills for aripiprazole, escitalopram and ropinirole. Per [facility], she last filled 90 day supply of those meds in March 2024. Last dose of medications was today 08/17/24 morning.
[2024-08-17] MEDS: Morphine Sulfate 2 MG/ML CARTRIDGE 0.5 MG IVPUSH ×2 (20:24→23:35)
--- NOTE | 2024-08-17 20:40 | PHA.PROG ---
Admission Date/Time: August 17, 2024 17:44 Indication: SKIN Weight in k.5 kg Adjusted body weight in Kg: Datto body weight in Kg: Obesity Dosing Indication % IBW: Serum Creatinine - Last 168 Hours 08/17/24 14:50 Creatinine 4.79 H* Estimated CrCl and GFR - Last 168 Hours 08/17/24 14:50 Estim Creat Clear Calc 8.9 Estimated GFR 9 Vancomycin Loading Dose: 2000 MG Current Vancomycin Dosing Regimen: 500 MG Q24H Vancomycin Monitoring using AUC goal of 400 - 600 range with trough as surrogate marker: XCA=911 TROUGH=23.9 Date and Time for next Vancomycin Level to be drawn: 08/19/24 @1300 Pharmacist Comments on Vancomycin Plan: WILL MONITOR RENAL FUNCTION CLOSELY, MAY NEED TO PUSH 500 MG DOSE BACK IF RENAL FUNCTION IS NOT IMPROVING TOMORROW Vancomycin dosing will take advantage of [employer] as a clinical decision support tool that uses Bayesian modeling to calculate individual patient's pharmacokinetic parameters and forecast the patient's drug concentration time course with the target goal AUC 24 range of 400 - 600 mg/L/hr.
[2024-08-17] MEDS: Potassium Chloride Packet 20 MEQ PACKET 60 MEQ PO (20:44)
[2024-08-17] MEDS: 0.9 % Sodium Chloride Flush 3 ML SYRINGE IVFLUSH (20:53)
[2024-08-17] MEDS: Norepinephrine Bitartrate/D5W 8 MG/250 ML PLAST..BAG 46.97 MG IVCONT (23:36)
[2024-08-18] VITALS (36 sets, daily range): BP systolic 93–138; BP diastolic 38–90; PULSE 69–126; RESP 12–25; TEMP 36.2–36.7; O2SAT 90–96; BMI 38.5
[2024-08-18 00:29] LABS: Anion Gap 23 (12-20); Blood Urea Nitrogen 86 mg/dL (9-16); Calcium 7.3 mg/dL (8.4-10.2); Carbon Dioxide 12 mmol/L (22-29); Chloride 103 mmol/L (96-108); Creatinine Clr Calc Pharmacy 9.9; Estimated Glomerular Filt Rate 10; Glucose Random 108 mg/dL (60-115); Magnesium 2.1 mg/dL (1.6-2.6); Phosphorus 3.8 mg/dL (2.7-4.5); Sodium 134 mmol/L (135-145)
[2024-08-18] MEDS: Albumin Human 25 % 100 ML IV ×4 (01:14→19:59)
[2024-08-18] MEDS: Sodium Bicarbonate 8.4% 150 MEQ in Dextrose 5 % 850 ML 100 MEQ IV ×3 (01:14→21:02)
[2024-08-18] MEDS: Norepinephrine Bitartrate/D5W 8 MG/250 ML PLAST..BAG 43.84 MG IVCONT (04:38)
[2024-08-18 04:58] LABS: VBG Base Excess -11.9 mmol/L; VBG HCO3 13 mmol/L (22-26); VBG pCO2 28 mmHg; VBG pH 7.27 (7.32-7.43); VBG pO2 53 mmHg
[2024-08-18 05:01] LABS: Venous Blood Gas Refer to POC result
[2024-08-18] MEDS: Piperacillin Sodium/Tazobactam 4.5 GM in 0.9 % Sodium Chloride 100 ML IV ×2 (05:21→18:35)
[2024-08-18 05:55] LABS: Appearance Urine Turbid; Color Urine Dark Yellow; Glucose Urine UA Negative (Negative); Leukocyte Esterase Urine Moderate (2+) (Negative); Nitrite Urine Negative (Negative); Specific Gravity - Urine 1.025 (1.005-1.025); UMIC TRIGGER UACC YES; Urine Blood Moderate (2+) (Negative); Urine Ketones Trace mg/dL (Negative); Urine Protein 100 (2+) mg/dL (Neg-Trace)
[2024-08-18 06:11] LABS: Bacteria Urine None Seen (None Seen); Granular Casts Urine Present; Hyaline Casts Urine >20 /LPF (0-2); RBC Urine >20 /HPF (0-2); UACC Culture Trigger YES; WBC Urine 21-50 /HPF (0-5)
--- NOTE | 2024-08-18 06:12 | PC.ADMIT ---
Pt admitted to ICU from ED at approx 1900. Upon initial assessment- pt A&Ox4, weakly JUAREZ, calm/cooperative. Afebrile but c/o feeling hot, ice packs given for comfort. Neosynephrine gtt infusing, titrated off per JUICE WEIGHER Wallace and levophed gtt ordered and titrated to maintain MAP > 65. Fine crackles to B/L lung bases but denies SOB/dyspnea and SpO2 > 92% on room air. Tolerating small sips of water but decreased PO intake x days per pt. Benitez in place- anuric, UOP 40 mL total this shift, sample sent per order. No BM. 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 CT femur ordered to evaluate wound further, brought to scan at approx 2100 without incident, JUICE WEIGHER aware of result. Upon return to room, pt with increasing vasopressor requirements- labs ordered, JUICE WEIGHER aware of results. Albumin IV x4 bags and bicarb gtt ordered and administered per JUL. Family at bedside at during admission, aware of pt status/plan of care. Bed locked in lowest position, alarm on, call polanco in reach. See EMR/flowsheet for further details.
[2024-08-18 06:18] LABS: Hemoglobin 12.8 g/dl (12.0-16.0); Mean Corpuscular Hemoglobin 31.3 pg (27.0-33.0); Mean Corpuscular Volume 97.8 fL (80.0-98.0); Platelet Count 200 X10*3/uL (160-400); Red Blood Count 4.09 X10*6/uL (4.20-5.50); Red Cell Distribution Width 13.6 % (11.0-16.0)
[2024-08-18 06:23] LABS: WBC ABN SCTR FOR CBC 1
[2024-08-18 06:28] LABS: Alanine Aminotransferase 68 U/L (0-31); Albumin Level 3.6 g/dL (3.5-5.0); Alkaline Phosphatase 268 U/L (39-117); Anion Gap 22 (12-20); Aspartate Amino Transferase 22 U/L (5-31); Bilirubin Total 0.6 mg/dL (0.0-1.0); Blood Urea Nitrogen 88 mg/dL (9-16); Calcium 7.3 mg/dL (8.4-10.2); Carbon Dioxide 14 mmol/L (22-29); Chloride 102 mmol/L (96-108); Estimated Glomerular Filt Rate 9; Glucose Random 147 mg/dL (60-115); Magnesium 2.2 mg/dL (1.6-2.6); Phosphorus 3.4 mg/dL (2.7-4.5); Potassium 3.5 mmol/L (3.3-5.1); Sodium 134 mmol/L (135-145); Total Protein 5.9 g/dL (6.5-8.0)
[2024-08-18 06:42] LABS: Band Neutrophils Percent 17 % (3-5); Eosinophils Absolute Manual 0.4 X10*3/uL (0.0-0.4); Eosinophils Percent Manual 2 % (0-4); Lymphocytes Absolute Manual 0.5 X10*3/uL (1.2-4.9); Lymphocytes Percent Manual 3 % (20-40); Monocytes Absolute Manual 0.2 X10*3/uL (0.1-1.2); Monocytes Percent Manual 1 % (2-11); Neutrophils Absolute Manual 16.9 X10*3/uL (2.0-8.3); Neutrophils Percent Manual 77 % (45-73); RBC Morphology NOTED
[2024-08-18 06:44] LABS: Burr Cells 3+ (>5) /OIF; Dohle Bodies PRESENT; Ovalocytes 1+ (5-14) /OIF; Platelet Estimate NORMAL (NORMAL); Platelet Morphology Comment NORMAL; Toxic Vacuolation PRESENT
[2024-08-18] MEDS: Calcium Gluconate/NaCl,Iso-Osm 2 GM/100 ML PLAST..BAG IV ×2 (07:52→22:08)
[2024-08-18] MEDS: 0.9 % Sodium Chloride Flush 3 ML SYRINGE IVFLUSH ×2 (07:55→21:03)
--- NOTE | 2024-08-18 09:47 | MHC.CM.PN ---
Met with pt and dtr to review d/c planning needs: pt resides alone, has [facility] for skilled RN visits (wound care) and uses a cane on occasion. Family assists w/transportation needs. HCP completed w/collections attorney: dtr to bring in copy. Referred back to [facility] for continuation of skilled visits: dtr to transport. CM to follow. IMM in chart
--- NOTE | 2024-08-18 10:07 | P.PNCC_ITS ---
Subjective Subjective Date of Service: 08/18/24 Critical Care Time (minutes): 45 Physical Exam 2 Vital Signs: Vital Signs: Last Vital Signs Temp 97.6 F 08/18/24 08:00 Pulse 71 08/18/24 09:00 Resp 17 08/18/24 09:00 BP 115/55 L 08/18/24 09:00 Pulse Ox 92 08/18/24 09:00 O2 Del Method Room Air 08/18/24 09:00 O2 Flow Rate 95 08/17/24 16:57 BMI result Body Mass Index 38.5 Const: General: no acute distress, alert and awake Eyes: Sclerae: sclerae normal EOM: EOMs intact bilaterally Neck: Neck: Yes no lymphadenopathy, Yes trachea midline and Yes supple Resp: Effort & Inspection: normal respiratory effort and no respiratory distress Auscultation: clear to auscultation bilaterally Cardio: Rate: regular rate Rhythm: regular rhythm Heart sounds: no gallops, no murmurs and no rubs GI: Palpation (GI): Soft to palpation and Other GI palpation findings present ( Nontender) Auscultation: normal bowel sounds Extrem: Other: Right hip wound with purulent drainage General: Yes no pedal edema, No clubbing and No cyanosis Objective Data Labs 08/18/24 04:43 08/18/24 04:43 Labs: Laboratory Results - last 24 hr 08/17/24 08/17/24 08/17/24 14:50 15:09 15:51 WBC 10.1 RBC 4.23 Hgb 13.4 Hct 39.5 MCV 93.4 MCH 31.7 MCHC 33.9 RDW 13.3 Plt Count 207 MPV 10.3 Immature Gran % (Auto) Cancelled Neut % (Auto) Cancelled Lymph % (Auto) Cancelled Garza % (Auto) Cancelled Eos % (Auto) Cancelled Baso % (Auto) Cancelled Lymph # (Auto) Cancelled Garza # (Auto) Cancelled Eos # (Auto) Cancelled Baso # (Auto) Cancelled Abs Immat Gran (auto) Cancelled Absolute Neuts (auto) Cancelled Absolute Nucleated RBC 0.000 Nucleated RBC % (auto) 0.0 Neutrophils % (Manual) 89 H Band Neutrophils % 8 H Lymphocytes % (Manual) Monocytes % (Manual) 1 L Eosinophils % (Manual) Metamyelocytes % 2 Abs Neuts (Manual) 9.8 H Lymphocytes # (Manual) Monocytes # (Manual) 0.1 Eosinophils # (Manual) Metamyelocytes # 0.2 Toxic Vacuolation PRESENT Dohle Bodies Platelet Estimate NORMAL Plt Morphology Comment NORMAL RBC Morphology NOTED Ovalocytes Helen Cells 3+ (>5) VBG pH VBG pCO2 VBG pO2 VBG HCO3 VBG O2 Saturation VBG Base Excess Sodium 132 L Potassium 3.2 L D Chloride 96 Carbon Dioxide 20 L Anion Gap 19 BUN 88 H Creatinine 4.79 H* Estim Creat Clear Calc 8.9 Estimated GFR 9 Random Glucose 103 Lactic Acid 2.2 H* Lactic Acid F/U @ 2Hr Calcium 8.0 L D Phosphorus Magnesium 2.4 Total Bilirubin 0.7 Direct Bilirubin 0.5 AST 29 ALT 114 H Alkaline Phosphatase 225 H Total Creatine Kinase 171 H Troponin I High Sens 16.9 D Total Protein 5.8 L Albumin 2.9 L Urine Color Urine Appearance Urine pH Ur Specific [place] Urine Protein Urine Glucose (UA) Urine Ketones Urine Blood Urine Nitrite Ur Leukocyte Esterase Urine RBC Urine WBC Ur Squamous Epith Cells Urine Bacteria Hyaline Casts Granular Casts Stool Occult Blood NEGATIVE Ethyl Alcohol < 10 Influenza Type A (PCR) NEGATIVE Influenza Type B (PCR) NEGATIVE RSV RNA Qual (PCR) NEGATIVE SARS-CoV-2 RNA (RT-PCR) NEGATIVE Blood Type O Positive Antibody Screen NEGATIVE 08/17/24 08/18/24 08/18/24 18:45 00:03 04:43 WBC 18.0 H RBC 4.09 L Hgb 12.8 Hct 40.0 MCV 97.8 MCH 31.3 MCHC 32.0 RDW 13.6 Plt Count 200 MPV 11.0 Immature Gran % (Auto) Cancelled Neut % (Auto) Cancelled Lymph % (Auto) Cancelled Garza % (Auto) Cancelled Eos % (Auto) Cancelled Baso % (Auto) Cancelled Lymph # (Auto) Cancelled Garza # (Auto) Cancelled Eos # (Auto) Cancelled Baso # (Auto) Cancelled Abs Immat Gran (auto) Cancelled Absolute Neuts (auto) Cancelled Absolute Nucleated RBC 0.000 Nucleated RBC % (auto) 0.0 Neutrophils % (Manual) 77 H Band Neutrophils % 17 H Lymphocytes % (Manual) 3 L Monocytes % (Manual) 1 L Eosinophils % (Manual) 2 Metamyelocytes % Abs Neuts (Manual) 16.9 H Lymphocytes # (Manual) 0.5 L Monocytes # (Manual) 0.2 Eosinophils # (Manual) 0.4 Metamyelocytes # Toxic Vacuolation PRESENT Dohle Bodies PRESENT Platelet Estimate NORMAL Plt Morphology Comment NORMAL RBC Morphology NOTED Ovalocytes 1+ (5-14) Helen Cells 3+ (>5) VBG pH VBG pCO2 VBG pO2 VBG HCO3 VBG O2 Saturation VBG Base Excess Sodium 134 L 134 L Potassium 4.0 D 3.5 Chloride 103 102 Carbon Dioxide 12 L 14 L Anion Gap 23 H 22 H BUN 86 H 88 H Creatinine 4.33 H* 4.75 H* Estim Creat Clear Calc 9.9 9.0 Estimated GFR 10 9 Random Glucose 108 147 H Lactic Acid Lactic Acid F/U @ 2Hr 1.4 Calcium 7.3 L D 7.3 L Phosphorus 3.8 3.4 Magnesium 2.1 2.2 Total Bilirubin 0.6 Direct Bilirubin AST 22 ALT 68 H Alkaline Phosphatase 268 H Total Creatine Kinase 228 H Troponin I High Sens Total Protein 5.9 L Albumin 3.6 Urine Color Urine Appearance Urine pH Ur Specific [place] Urine Protein Urine Glucose (UA) Urine Ketones Urine Blood Urine Nitrite Ur Leukocyte Esterase Urine RBC Urine WBC Ur Squamous Epith Cells Urine Bacteria Hyaline Casts Granular Casts Stool Occult Blood Ethyl Alcohol Influenza Type A (PCR) Influenza Type B (PCR) RSV RNA Qual (PCR) SARS-CoV-2 RNA (RT-PCR) Blood Type Antibody Screen 08/18/24 08/18/24 04:54 05:12 WBC RBC Hgb Hct MCV MCH MCHC RDW Plt Count MPV Immature Gran % (Auto) Neut % (Auto) Lymph % (Auto) Garza % (Auto) Eos % (Auto) Baso % (Auto) Lymph # (Auto) Garza # (Auto) Eos # (Auto) Baso # (Auto) Abs Immat Gran (auto) Absolute Neuts (auto) Absolute Nucleated RBC Nucleated RBC % (auto) Neutrophils % (Manual) Band Neutrophils % Lymphocytes % (Manual) Monocytes % (Manual) Eosinophils % (Manual) Metamyelocytes % Abs Neuts (Manual) Lymphocytes # (Manual) Monocytes # (Manual) Eosinophils # (Manual) Metamyelocytes # Toxic Vacuolation Dohle Bodies Platelet Estimate Plt Morphology Comment RBC Morphology Ovalocytes Reji Cells VBG pH 7.27 L VBG pCO2 28 VBG pO2 53 VBG HCO3 13 L VBG O2 Saturation 86.0 VBG Base Excess -11.9 Sodium Potassium Chloride Carbon Dioxide Anion Gap BUN Creatinine Estim Creat Clear Calc Estimated GFR Random Glucose Lactic Acid Lactic Acid F/U @ 2Hr Calcium Phosphorus Magnesium Total Bilirubin Direct Bilirubin AST ALT Alkaline Phosphatase Total Creatine Kinase Troponin I High Sens Total Protein Albumin Urine Color Dark Yellow Urine Appearance Turbid Urine pH 5.0 Ur Specific [place] 1.025 Urine Protein 100 (2+) H Urine Glucose (UA) Negative Urine Ketones Trace Urine Blood Moderate (2+) H Urine Nitrite Negative Ur Leukocyte Esterase Moderate (2+) H Urine RBC >20 H Urine WBC 21-50 H Ur Squamous Epith Cells 11-20 Urine Bacteria None Seen Hyaline Casts >20 Granular Casts Present Stool Occult Blood Ethyl Alcohol Influenza Type A (PCR) Influenza Type B (PCR) RSV RNA Qual (PCR) SARS-CoV-2 RNA (RT-PCR) Blood Type Antibody Screen Progress Note: A&P Assessment and plan (1) Soft tissue infection: Status: Acute (2) ANIYA (acute kidney injury): Status: Acute (3) Septic shock: Status: Acute (4) Peripheral vascular disease: Status: Acute Plan Assessment: 78-year-old lady with underlying COPD, PVD, chronic right hip wound admitted with septic shock with likely soft tissue source. Plan: Neuro: No acute issues. Cardiac: Septic shock, continue to titrate off pressor support as tolerated. Underlying PVD Pulmonary: No acute issues. Underlying COPD and SOULEYMANE. Renal: Acute renal failure with metabolic acidosis, likely secondary to ATN from septic shock. Oliguric. Continue bicarbonate drip. Continue to monitor renal indices and urine output. Endo: No acute issues. GI: No acute issues. ID: Septic shock with likely soft tissue source. General surgery consulted for possible debridement. Continue broad-spectrum antibiotics. Cultures are pending. Heme/Onc: No acute issues. Psych: No acute issues. Miscellaneous: No acute issues. Prophylaxis: Heparin Diet: Regular Critical care time spent: 45 minutes Quality Stroke Does the patient have a stroke diagnosis?: No VTE Prior VTE?: No VTE Risk Level:: Medical - moderate - high VTE Device Contraindication: Treatment Not Indicated VTE Drug Contraindication: N/A - Med Ordered
[2024-08-18 10:19] LABS: MRSA Nasal PCR NEGATIVE (Negative); SA Nasal PCR POSITIVE (Negative)
--- NOTE | 2024-08-18 10:33 | P.CONGS_ITS ---
History of Present Illness Consult details Consult date: 08/18/24 Requesting physician: Thomas Woods Narrative: 78-year-old female patient admitted to the ICU after a fall at home. Patient reports falling while at her desk on Wednesday striking her head. The patient was found by her daughter and subsequently brought to the emergency department yesterday. Patient reports feeling weak all during the week. In the emergency department she was found to be hypotensive requiring fluid boluses. Surgical consultation was requested for the right hip wound. He has a previous history of a right total hip arthroplasty. Postoperatively she has had multiple infections in the overlying skin. She was undergone several procedures for debridement with wound VAC placement with temporary healing of the wound however subsequent reinfection soon develops. She was currently being evaluated by wound care for further management. She was being evaluated for osteomyelitis. Review of Systems 2 Review of Systems: Yes all other systems are reviewed and are negative Constitutional: Constitutional: Reports body ache(s), Reports fatigue and Reports lethargy Musculoskeletal: Musculoskeletal: Reports as per HPI Integumentary/Breasts: Skin/Breast: Reports as per HPI Endocrine: Endocrine: Reports fatigue PMFSH Past Medical History Medical History (Updated 08/18/24 @ 10:12 by Thomas Woods MD) Peripheral vascular disease SOULEYMANE (obstructive sleep apnea) Wound, open, hip or thigh with complication Encounter for general adult medical examination with abnormal findings Hip pain, right Preoperative cardiovascular examination Change in bowel movement Traumatic seroma of right thigh Postprocedural seroma of skin and subcutaneous tissue following other procedure Open wound of right hip and thigh Right rib fracture Menopause Pain management Pain management contract agreement Open wound of right lower leg with complication Shortness of breath Cough Edema Influenza A H1N1 infection Hospital discharge follow-up Cellulitis of right leg Varicose veins of right lower extremity with inflammation Enterococcus faecalis infection Abscess Hip pain, right Obesity Lymphedema Morbid obesity due to excess calories Pre-op evaluation Colon cancer screening Medicare annual wellness visit, subsequent Family history of anesthesia complication Back pain Arthritis Renal calculi Post-influenza syndrome Tremor Peripheral vascular disease Right bundle branch block (RBBB) Aortic valve calcification Mitral annular calcification Nocturnal hypoxemia COPD (chronic obstructive pulmonary disease) Restrictive lung disease Stasis edema of both lower extremities Nail fungus Chronic GERD Depression, major, recurrent Hypertension, essential Family History Family History Father No problems noted. Mother Alzheimer's disease Maternal Grandmother Cancer Maternal Grandfather No problems noted. Paternal Grandfather No problems noted. Paternal Grandmother No problems noted. Maternal Aunt Cancer Sister Colon cancer Son No problems noted. Daughter No problems noted. Surgical History Surgical History History of excision of lesion (10/20/23) History of total hip arthroplasty S/P gastric bypass History of surgery on lower extremity (01/25/23) History of surgery H/O colonoscopy History of cataract extraction History of bilateral tubal ligation History of tonsillectomy Social History Social History Household Members: None Household Members Other:: daughter Housing: House Housing Other:: mobile home Are you a primary body care manager to a significant other at home: No Do you presently have visiting nurse or other home services: No Alcohol intake: former Patient Tobacco Use Status: Former Tobacco user Tobacco use type: Cigarette Years Smoked: 40 Smoked in Last 30 Days: No e-Cigarette/Vaping Use: Currently Using Second Hand Smoke Exposure: No Use of substances other than those prescribed or required for medical reasons: No Currently Displaying Signs/Symptoms of Drug Intoxication Withdrawal: No Have you been hit, kicked, punched, or otherwise hurt by someone within the past year? If so, by whom?: No Advance Directives: Yes Advance Directives on File: Yes Advance Directives Date on File: 03/13/15 Recently lost weight without trying: No Nutrition Risks: Anorexia Patient : No service: No Current occupational status: retired and other Current occupation: right handed Cognitive needs: No Hearing needs: No Vision needs: No Meds Allergies Allergy/AdvReac Type Severity Reaction Status Date / Time sucralfate [Carafate] Allergy Intermediate hives Verified 08/17/24 14:34 NSAIDS (Non-Steroidal AdvReac Intermediate cannot Verified 08/17/24 14:34 Anti-Inflamma take due to gastric bypass history Active Medications: Current Medications Heparin Sodium (Porcine) (Heparin Sodium,Porcine 5,000 Unit/Ml Vial) 5,000 unit SUBCUT Q8H [facility] Last Admin: 08/17/24 23:36 Dose: 5,000 unit Norepinephrine Bitartrate (Levophed) 8 mg in 250 mls @ 0 mls/hr IVCONT .Q0M [facility]; Protocol Last Titration: 08/18/24 05:21 Dose: 0.26 mcg/kg/min, 40.71 mls/hr Piperacillin Sod/Tazobactam (Sod 4.5 gm/ Sodium Chloride) 100 mls @ 200 mls/hr IV Q12H [facility] Last Infusion: 08/18/24 05:52 Dose: Infused Sodium Bicarbonate 150 meq/ (Dextrose) 1,000 mls @ 100 mls/hr IV .Q10H [facility] Last Admin: 08/18/24 01:14 Dose: 100 mls/hr Albumin Human (Kedbumin 25 %) 100 mls @ 100 mls/hr IV Q6H [facility] Stop: 08/18/24 20:59 Last Infusion: 08/18/24 07:54 Dose: 0 mls/hr Vancomycin HCl 500 mg/ Sodium (Chloride) 110 mls @ 110 mls/hr IV Q24H [facility] Morphine Sulfate (Morphine Sulfate 2 Mg/Ml Cartridge) 0.5 mg IVPUSH Q4H PRN; Protocol PRN Reason: Pain, Severe (Pain Scale 7-10) Last Admin: 08/17/24 23:35 Dose: 0.5 mg Pharmacy Consult (Consult Rx Vancomycin Dosing) 1 each MISCELLANE DAILY PRN PRN Reason: Consult order Sodium Chloride (0.9 % Sodium Chloride Flush 3 Ml Syringe) 3 ml IVFLUSH QSHIFT [facility] Last Admin: 08/18/24 07:55 Dose: 3 ml Home Medications ?Medication ?Instructions ?Recorded ?Confirmed ?Last Taken ?Type ascorbic acid (vitamin C) 1,000 mg 1,000 mg PO DAILY 04/02/20 08/18/24 01/24/23 History tablet bupropion HCl 300 mg 24 hr tablet, 300 mg PO DAILY 04/02/20 08/18/24 01/24/23 History extended release (Wellbutrin XL) cholecalciferol (vitamin D3) 50 50 mcg PO BID 04/02/20 08/18/24 01/24/23 History mcg (2,000 unit) capsule ferrous sulfate 325 mg (65 mg 325 mg PO BEDTIME 04/02/20 08/18/24 Unknown History iron) tablet (Feosol) multivitamin (Daily Multi-Vitamin 1 tab PO BEDTIME 04/02/20 08/18/24 01/24/23 History tablet) escitalopram oxalate 20 mg tablet 20 mg PO DAILY 07/30/20 08/18/24 01/24/23 History (Lexapro) bupropion HCl 150 mg 24 hr tablet, 150 mg PO DAILY 08/06/21 08/18/24 01/24/23 History extended release propranolol 60 mg capsule,24 60 mg PO BEDTIME 09/19/21 08/18/24 01/24/23 History hr,extended release lorazepam 0.5 mg tablet 0.5 mg PO DAILY PRN Anxiety 06/24/22 08/18/24 01/24/23 History aripiprazole 10 mg tablet 10 mg PO DAILY 12/17/22 08/18/24 01/24/23 History calcium 250 mg-magnesium 40 mg-D3 1 tab PO DAILY 01/18/23 08/18/24 01/24/23 History 125 unit-zinc [id number] tablet (Calcium Citrate Plus) ropinirole 0.25 mg tablet 0.25 mg PO BEDTIME 05/24/23 08/18/24 Unknown History primidone 50 mg tablet 50 mg PO BEDTIME 10/12/23 08/18/24 Unknown History alendronate 70 mg tablet (Fosamax) 70 mg PO [place] 08/17/24 08/18/24 Unknown History hydrochlorothiazide 25 mg tablet 25 mg PO DAILY 08/17/24 08/18/24 Unknown History omeprazole 40 mg capsule,delayed 40 mg PO DAILY@0630 08/17/24 08/18/24 Unknown History release sennosides 8.6 mg-docusate sodium 1 tab PO DAILY 08/17/24 08/18/24 Unknown History 50 mg tablet (Senexon-S) Physical Exam 2 Vital Signs: Vital Signs: Last Vital Signs Temp 97.6 F 08/18/24 08:00 Pulse 72 08/18/24 10:00 Resp 22 H 08/18/24 10:00 BP 101/55 L 08/18/24 10:00 Pulse Ox 92 08/18/24 10:00 O2 Del Method Room Air 08/18/24 10:00 O2 Flow Rate 95 08/17/24 16:57 BMI result Body Mass Index 38.5 Const: General: no acute distress Nutritional Appearance: well nourished Orientation/consciousness: patient oriented x3 HEENT: Head: Yes normocephalic and Yes atraumatic Ears: hearing grossly normal bilaterally Resp: Effort & Inspection: normal respiratory effort, no audible wheezes, no cough and no respiratory distress GI: Inspection: Yes normal to inspection Palpation (GI): Soft to palpation, nontender and no guarding Neuro: General: patient oriented x3 Extrem: Other: Right lateral hip wound measuring approximately 3 cm in diameter with purulent, foul-smelling discharge noted. Wound tracks deep into subcutaneous tissue heading towards the hip prosthesis. Dressings were soaked with purulence discharge. Clean dry dressings were applied. Upper/lower leg/hip images: 1. Site of open wound right hip Results Labs 08/18/24 04:43 08/18/24 04:43 Labs: Abnormal lab results 08/17/24 08/17/24 08/18/24 Range/Units 14:50 20:52 00:03 WBC (4.8-10.8) X10*3/uL RBC (4.20-5.50) X10*6/uL Neutrophils % (Manual) 89 H (45-73) % Band Neutrophils % 8 H (3-5) % Lymphocytes % (Manual) (20-40) % Monocytes % (Manual) 1 L (2-11) % Abs Neuts (Manual) 9.8 H (2.0-8.3) X10*3/uL Lymphocytes # (Manual) (1.2-4.9) X10*3/uL VBG pH (7.32-7.43) VBG HCO3 (22-26) mmol/L Sodium 132 L 134 L (135-145) mmol/L Potassium 3.2 L D (3.3-5.1) mmol/L Carbon Dioxide 20 L 12 L (22-29) mmol/L Anion Gap 23 H (12-20) BUN 88 H 86 H (9-16) mg/dL Creatinine 4.79 H* 4.33 H* (0.5-1.4) mg/dL Random Glucose (60-115) mg/dL Lactic Acid 2.2 H* (0.5-2.0) mmol/L Calcium 8.0 L D 7.3 L D (8.4-10.2) mg/dL ALT 114 H (0-31) U/L Alkaline Phosphatase 225 H (39-117) U/L Total Creatine Kinase 171 H (26-140) U/L Total Protein 5.8 L (6.5-8.0) g/dL Albumin 2.9 L (3.5-5.0) g/dL Urine Protein (Neg-Trace) mg/dL Urine Blood (Negative) Ur Leukocyte Esterase (Negative) Urine RBC (0-2) /HPF Urine WBC (0-5) /HPF Nasal S. aureus Screen POSITIVE A (Negative) 08/18/24 08/18/24 08/18/24 Range/Units 04:43 04:54 05:12 WBC 18.0 H (4.8-10.8) X10*3/uL RBC 4.09 L (4.20-5.50) X10*6/uL Neutrophils % (Manual) 77 H (45-73) % Band Neutrophils % 17 H (3-5) % Lymphocytes % (Manual) 3 L (20-40) % Monocytes % (Manual) 1 L (2-11) % Abs Neuts (Manual) 16.9 H (2.0-8.3) X10*3/uL Lymphocytes # (Manual) 0.5 L (1.2-4.9) X10*3/uL VBG pH 7.27 L (7.32-7.43) VBG HCO3 13 L (22-26) mmol/L Sodium 134 L (135-145) mmol/L Potassium (3.3-5.1) mmol/L Carbon Dioxide 14 L (22-29) mmol/L Anion Gap 22 H (12-20) BUN 88 H (9-16) mg/dL Creatinine 4.75 H* (0.5-1.4) mg/dL Random Glucose 147 H (60-115) mg/dL Lactic Acid (0.5-2.0) mmol/L Calcium 7.3 L (8.4-10.2) mg/dL ALT 68 H (0-31) U/L Alkaline Phosphatase 268 H (39-117) U/L Total Creatine Kinase 228 H (26-140) U/L Total Protein 5.9 L (6.5-8.0) g/dL Albumin (3.5-5.0) g/dL Urine Protein 100 (2+) H (Neg-Trace) mg/dL Urine Blood Moderate (2+) H (Negative) Ur Leukocyte Esterase Moderate (2+) H (Negative) Urine RBC >20 H (0-2) /HPF Urine WBC 21-50 H (0-5) /HPF Nasal S. aureus Screen (Negative) Short CBC 08/17/24 08/18/24 Range/Units 14:50 04:43 WBC 10.1 18.0 H (4.8-10.8) X10*3/uL Hgb 13.4 12.8 (12.0-16.0) g/dl Hct 39.5 40.0 (37.0-47.0) % Plt Count 207 200 (160-400) X10*3/uL BMP 08/17/24 08/18/24 08/18/24 14:50 00:03 04:43 Sodium 132 L 134 L 134 L Potassium 3.2 L D 4.0 D 3.5 Chloride 96 103 102 Carbon Dioxide 20 L 12 L 14 L BUN 88 H 86 H 88 H Creatinine 4.79 H* 4.33 H* 4.75 H* Calcium 8.0 L D 7.3 L D 7.3 L Cardiac Enzymes 08/17/24 08/18/24 Range/Units 14:50 04:43 Total Creatine Kinase 171 H 228 H (26-140) U/L Liver Function 08/17/24 08/18/24 Range/Units 14:50 04:43 Total Bilirubin 0.7 0.6 (0.0-1.0) mg/dL Direct Bilirubin 0.5 (0.0-0.5) mg/dL AST 29 22 (5-31) U/L ALT 114 H 68 H (0-31) U/L Alkaline Phosphatase 225 H 268 H (39-117) U/L Albumin 2.9 L 3.6 (3.5-5.0) g/dL Urine 08/18/24 Range/Units 05:12 Urine Color Dark Yellow Urine Appearance Turbid Urine pH 5.0 (5.0-9.0) Ur Specific [place] 1.025 (1.005-1.025) Urine Protein 100 (2+) H (Neg-Trace) mg/dL Urine Glucose (UA) Negative (Negative) mg/dL All other labs normal. Assessment and Plan (1) S/P total right hip arthroplasty: Status: Acute (2) Septic shock: Status: Acute Plan 78-year-old female patient with a long history of a draining wound from the right hip following total right hip arthroplasty now presenting with purulence discharge from the wound. Review of the CT abdomen and pelvis does reveal inflammatory changes around the right hip with air bubbles surrounding bone. Findings may be suggestive of underlying osteomyelitis or infected prosthesis. She has undergone numerous local procedures to debride the overlying wound without significant success suggesting an underlying deep infection such as osteomyelitis. If osteomyelitis is suspected, recommend orthopedic consultation. Procedures Date of Service Date of Service: 08/18/24
[2024-08-18] MEDS: Heparin Sodium,Porcine 5,000 UNIT/ML VIAL 5000 UNIT SUBCUT ×2 (10:39→18:36)
[2024-08-18] MEDS: Norepinephrine Bitartrate/D5W 8 MG/250 ML PLAST..BAG 40.71 MG IVCONT (11:10)
[2024-08-18] MEDS: Morphine Sulfate 2 MG/ML CARTRIDGE 0.5 MG IVPUSH (13:45)
--- NOTE | 2024-08-18 16:45 | HE.PHANOTE ---
RE: VANCO DOSING Trough came back as 20 mg/L (after loading dose of 2000 mg on 08/17/24 @1512). Patient is in ANIYA right now, renal function not improving. No dose on 08/18/24. Next trough is scheduled for 08/19/24 @1300, order of 500 mg q48h is pended depending on level.
--- NOTE | 2024-08-18 17:49 | HO.SKINPHOTO ---
Location: *Chronic* Right Lateral Buttock Category: Abscess (W/ Significant Tunneling, Sloughing, Foul Smelling [place] Watery Drainage) Length: 4.5cm Width: 2cm Depth: 7.5cm (depth unable to be fully appreciated by sterile cotton tipped swab)
[2024-08-18] MEDS: Norepinephrine Bitartrate/D5W 8 MG/250 ML PLAST..BAG 25.05 MG IVCONT (18:05)
[2024-08-18 21:13] LABS: VBG Base Excess -1.6 mmol/L; VBG HCO3 23 mmol/L (22-26); VBG pCO2 42 mmHg; VBG pH 7.35 (7.32-7.43); VBG pO2 46 mmHg
[2024-08-18 21:14] LABS: Venous Blood Gas Refer to POC result
[2024-08-18 21:30] LABS: Anion Gap 19 (12-20); Blood Urea Nitrogen 92 mg/dL (9-16); Calcium 7.2 mg/dL (8.4-10.2); Carbon Dioxide 22 mmol/L (22-29); Chloride 95 mmol/L (96-108); Creatinine Clr Calc Pharmacy 8.6; Estimated Glomerular Filt Rate 8; Glucose Random 175 mg/dL (60-115); Phosphorus 1.8 mg/dL (2.7-4.5); Sodium 133 mmol/L (135-145)
[2024-08-18] MEDS: Potassium Phosphate/NS 15 MMOL/250 ML PLAST..BAG 62.5 MMOL IV (22:04)
[2024-08-19] VITALS (39 sets, daily range): BP systolic 80–147; BP diastolic 40–83; PULSE 85–123; RESP 11–22; TEMP 36.3–37.1; O2SAT 90–96; BMI 39.0
[2024-08-19] MEDS: Potassium Phosphate/NS 15 MMOL/250 ML PLAST..BAG 62.5 MMOL IV (02:07)
[2024-08-19] MEDS: Heparin Sodium,Porcine 5,000 UNIT/ML VIAL 5000 UNIT SUBCUT ×3 (02:08→17:21)
[2024-08-19] MEDS: Norepinephrine Bitartrate/D5W 8 MG/250 ML PLAST..BAG 25.05 MG IVCONT ×2 (04:18→21:40)
[2024-08-19 04:43] LABS: VBG Base Excess -1.2 mmol/L; VBG HCO3 24 mmol/L (22-26); VBG pCO2 42 mmHg; VBG pH 7.36 (7.32-7.43); VBG pO2 37 mmHg
[2024-08-19 05:21] LABS: Hemoglobin 10.9 g/dl (12.0-16.0); Mean Corpuscular HGB Conc 34.1 g/dl (31.0-35.0); Mean Corpuscular Hemoglobin 31.6 pg (27.0-33.0); Mean Corpuscular Volume 92.8 fL (80.0-98.0); Red Blood Count 3.45 X10*6/uL (4.20-5.50); Red Cell Distribution Width 13.5 % (11.0-16.0); WBC ABN SCTR FOR CBC 1
[2024-08-19 05:51] LABS: Alanine Aminotransferase 45 U/L (0-31); Albumin Level 3.6 g/dL (3.5-5.0); Alkaline Phosphatase 284 U/L (39-117); Anion Gap 17 (12-20); Aspartate Amino Transferase 21 U/L (5-31); Bilirubin Total 0.9 mg/dL (0.0-1.0); Blood Urea Nitrogen 94 mg/dL (9-16); Calcium 7.7 mg/dL (8.4-10.2); Carbon Dioxide 23 mmol/L (22-29); Chloride 97 mmol/L (96-108); Creatinine Clr Calc Pharmacy 8.7; Estimated Glomerular Filt Rate 8; Glucose Random 122 mg/dL (60-115); Phosphorus 3.6 mg/dL (2.7-4.5); Potassium 3.3 mmol/L (3.3-5.1); Sodium 134 mmol/L (135-145); Total Protein 5.6 g/dL (6.5-8.0)
[2024-08-19 05:59] LABS: Atypical Lymph Absolute Manual 0.2 x10*3/uL; Atypical Lymphs Percent Manual 1 % (0-6); Band Neutrophils Percent 9 % (3-5); Eosinophils Absolute Manual 1.1 X10*3/uL (0.0-0.4); Eosinophils Percent Manual 6 % (0-4); Lymphocytes Absolute Manual 2.7 X10*3/uL (1.2-4.9); Lymphocytes Percent Manual 15 % (20-40); Monocytes Absolute Manual 0.2 X10*3/uL (0.1-1.2); Monocytes Percent Manual 1 % (2-11); Neutrophils Absolute Manual 13.9 X10*3/uL (2.0-8.3); Neutrophils Percent Manual 68 % (45-73)
[2024-08-19 06:00] LABS: Macrocytosis 1+ (5-14) /OIF; RBC Morphology NOTED
[2024-08-19 06:01] LABS: Burr Cells 1+ (0-2) /OIF; Dohle Bodies PRESENT; Ovalocytes 1+ (5-14) /OIF; Platelet Estimate DECREASED (NORMAL); Platelet Morphology Comment NORMAL; Smudge Cells PRESENT; Toxic Vacuolation PRESENT
[2024-08-19 06:02] LABS: Mean Platelet Volume 11.2 fL (9.4-12.3); Platelet Count 92 X10*3/uL (160-400)
[2024-08-19 06:05] LABS: Venous Blood Gas Refer to POC result
[2024-08-19] MEDS: Piperacillin Sodium/Tazobactam 4.5 GM in 0.9 % Sodium Chloride 100 ML IV ×2 (06:06→17:21)
--- NOTE | 2024-08-19 06:19 | PC.NURSE ---
Assumed care at 1900. Patient alert and oriented x4, soft spoken and pleasant, able to make needs known. Afib on tele, HR 90s-120s. Levo gtt infusing per JUL. Bicarb gtt dc'd per JEAN Wallace. Lung sounds clear, fine crackles noted in the bases, patient saturating well on room air. Dyspnea and mild wheezing noted with exertion. Abdomen large, active bowel sounds x4. Patient's menchaca removed at approx 1400, patient due to void 1999. Patient assisted up to commode to void without success. Bladder scanned for 223mL, see I&O flowsheet. Purewick applied and patient?encouraged to void. After no urine output at 0200, patient rescanned for 531mL. JEAN Wallace notified, and patient again encouraged to void. Patient straight cath'd?for 550mL dark yellow urine after unsuccessful attempts at voiding. Skin warm and dry, chronic wound to right hip, see skin photos. Patient repositioned as tolerated, bed locked in lowest position, bed alarm on, call polanco within reach.
[2024-08-19] MEDS: Calcium Gluconate/NaCl,Iso-Osm 2 GM/100 ML PLAST..BAG IV (08:24)
[2024-08-19] MEDS: 0.9 % Sodium Chloride Flush 3 ML SYRINGE IVFLUSH ×3 (08:25→21:42)
[2024-08-19] MEDS: Potassium Chloride Packet 20 MEQ PACKET 40 MEQ PO (08:25)
[2024-08-19] MEDS: Phentolamine Mesylate 5 MG VIAL 10 MG IVPUSH (09:50)
[2024-08-19] MEDS: Simethicone 80 MG TAB.CHEW PO (09:53)
[2024-08-19] MEDS: Lactulose 20 GM/30 ML SOLUTION 30 GM PO (09:53)
[2024-08-19] MEDS: Morphine Sulfate 2 MG/ML CARTRIDGE 0.5 MG IVPUSH (10:11)
[2024-08-19] MEDS: Phentolamine Mesylate 5 MG VIAL 10 MG SUBCUT ×3 (10:29→21:34)
--- NOTE | 2024-08-19 11:14 | P.PNCC_ITS ---
Subjective Subjective Date of Service: 08/19/24 Interval History: 78-year-old lady with underlying history of chronic right hip want, followed by wound care, previously required wound VAC by General surgery, also COPD, hypertension, PVD, SOULEYMANE admitted on 08/18/2024 with septic shock with likely soft tissue source requiring pressor support. Patient had CT of her hip wound that did not show underlying osteomyelitis. She was evaluated by General surgery with no plans for further procedures. No events overnight. Pressor requirements improving. Critical Care Time (minutes): 45 Physical Exam 2 Vital Signs: Vital Signs: Last Vital Signs Temp 97.6 F 08/19/24 04:00 Pulse 118 H 08/19/24 10:51 Resp 22 H 08/19/24 10:00 BP 93/43 L 08/19/24 10:51 Pulse Ox 93 08/19/24 10:00 O2 Del Method Room Air 08/19/24 10:00 O2 Flow Rate 95 08/17/24 16:57 BMI result Body Mass Index 39.0 Const: General: no acute distress, alert and awake Eyes: Sclerae: sclerae normal EOM: EOMs intact bilaterally Neck: Neck: Yes no lymphadenopathy, Yes trachea midline and Yes supple Resp: Effort & Inspection: normal respiratory effort and no respiratory distress Auscultation: clear to auscultation bilaterally Cardio: Rate: tachycardic Rhythm: regular rhythm Heart sounds: no gallops, no murmurs and no rubs GI: Palpation (GI): Soft to palpation and Other GI palpation findings present ( Nontender) Auscultation: normal bowel sounds Extrem: General: Yes no pedal edema, No clubbing and No cyanosis Objective Data Labs 08/19/24 04:33 08/19/24 04:33 Labs: Laboratory Results - last 24 hr 08/18/24 08/18/24 08/18/24 15:05 21:02 21:08 WBC RBC Hgb Hct MCV MCH MCHC RDW Plt Count MPV Immature Gran % (Auto) Neut % (Auto) Lymph % (Auto) Story % (Auto) Eos % (Auto) Baso % (Auto) Lymph # (Auto) Story # (Auto) Eos # (Auto) Baso # (Auto) Abs Immat Gran (auto) Absolute Neuts (auto) Absolute Nucleated RBC Nucleated RBC % (auto) Neutrophils % (Manual) Band Neutrophils % Lymphocytes % (Manual) Atypical Lymphs % (Man) Monocytes % (Manual) Eosinophils % (Manual) Abs Neuts (Manual) Lymphocytes # (Manual) Atyp Lymphs # (Manual) Monocytes # (Manual) Eosinophils # (Manual) Smudge Cells Toxic Vacuolation Dohle Bodies Platelet Estimate Plt Morphology Comment RBC Morphology Macrocytosis Ovalocytes Reji Cells VBG pH 7.35 VBG pCO2 42 VBG pO2 46 VBG HCO3 23 VBG O2 Saturation 83.0 VBG Base Excess -1.6 Sodium 133 L Potassium 3.0 L Chloride 95 L Carbon Dioxide 22 Anion Gap 19 BUN 92 H Creatinine 5.00 H* Estim Creat Clear Calc 8.6 Estimated GFR 8 Random Glucose 175 H Calcium 7.2 L Phosphorus 1.8 L Magnesium 2.0 Total Bilirubin AST ALT Alkaline Phosphatase Total Protein Albumin Random Vancomycin 20.0 08/19/24 08/19/24 04:33 04:39 WBC 18.0 H RBC 3.45 L Hgb 10.9 L Hct 32.0 L MCV 92.8 D MCH 31.6 MCHC 34.1 RDW 13.5 Plt Count 92 L D MPV 11.2 Immature Gran % (Auto) Cancelled Neut % (Auto) Cancelled Lymph % (Auto) Cancelled Story % (Auto) Cancelled Eos % (Auto) Cancelled Baso % (Auto) Cancelled Lymph # (Auto) Cancelled Story # (Auto) Cancelled Eos # (Auto) Cancelled Baso # (Auto) Cancelled Abs Immat Gran (auto) Cancelled Absolute Neuts (auto) Cancelled Absolute Nucleated RBC 0.000 Nucleated RBC % (auto) 0.0 Neutrophils % (Manual) 68 Band Neutrophils % 9 H Lymphocytes % (Manual) 15 L Atypical Lymphs % (Man) 1 Monocytes % (Manual) 1 L Eosinophils % (Manual) 6 H Abs Neuts (Manual) 13.9 H Lymphocytes # (Manual) 2.7 Atyp Lymphs # (Manual) 0.2 Monocytes # (Manual) 0.2 Eosinophils # (Manual) 1.1 H Smudge Cells PRESENT Toxic Vacuolation PRESENT Dohle Bodies PRESENT Platelet Estimate DECREASED Plt Morphology Comment NORMAL RBC Morphology NOTED Macrocytosis 1+ (5-14) Ovalocytes 1+ (5-14) Reji Cells 1+ (0-2) VBG pH 7.36 VBG pCO2 42 VBG pO2 37 VBG HCO3 24 VBG O2 Saturation 69.0 VBG Base Excess -1.2 Sodium 134 L Potassium 3.3 Chloride 97 Carbon Dioxide 23 Anion Gap 17 BUN 94 H Creatinine 4.96 H* Estim Creat Clear Calc 8.7 Estimated GFR 8 Random Glucose 122 H Calcium 7.7 L D Phosphorus 3.6 Magnesium 2.0 Total Bilirubin 0.9 AST 21 ALT 45 H Alkaline Phosphatase 284 H Total Protein 5.6 L Albumin 3.6 Random Vancomycin Microbiology Microbiology Results: Microbiology 08/17/24 15:09 Blood - Venous Blood Culture - Preliminary No growth after 24 hours. 08/17/24 14:50 Blood - Venous Blood Culture - Preliminary No growth after 24 hours. Progress Note: A&P Assessment and plan (1) Septic shock: Status: Acute (2) Soft tissue infection: Status: Acute Plan Assessment: 78-year-old lady with underlying COPD, PVD, chronic right hip wound admitted with septic shock with likely soft tissue source. Plan: Neuro: No acute issues. Cardiac: Septic shock, continue to titrate off pressor support as tolerated. Underlying PVD Pulmonary: No acute issues. Underlying COPD and SOULEYMANE. Renal: Acute renal failure with metabolic acidosis, likely secondary to ATN from septic shock, improved. No longer oliguric. Continue to monitor renal indices and urine output. Endo: No acute issues. GI: No acute issues. ID: Septic shock with likely soft tissue source. General surgery service care appreciated. Continue broad-spectrum antibiotics. Cultures are pending. Heme/Onc: No acute issues. Psych: No acute issues. Miscellaneous: No acute issues. Prophylaxis: Heparin Diet: Regular Critical care time spent: 45 minutes Quality Stroke Does the patient have a stroke diagnosis?: No VTE Prior VTE?: No VTE Risk Level:: Medical - moderate - high VTE Device Contraindication: Treatment Not Indicated VTE Drug Contraindication: N/A - Med Ordered
[2024-08-19] MEDS: Midazolam HCl 2 MG/2 ML VIAL IVPUSH (11:35)
--- NOTE | 2024-08-19 11:57 | W.PM.CCHP ---
Procedures Date of Service Date of Service: 08/19/24 Central Line Placement Right IJ: Central Line Comments: After obtaining informed consent right triple-lumen central venous catheter placed for pressor support under ultrasound guidance and usual sterile conditions with no immediate complications. X-ray for line position is pending.
[2024-08-19] MEDS: Phentolamine Mesylate 5 MG VIAL IVPUSH (12:03)
[2024-08-19] MEDS: Phentolamine Mesylate 5 MG VIAL SUBCUT (12:37)
[2024-08-19 13:24] LABS: Vancomycin Random 16.9 mcg/mL (15-20)
[2024-08-19] MEDS: Norepinephrine Bitartrate/D5W 8 MG/250 ML PLAST..BAG 31.31 MG IVCONT (13:41)
--- NOTE | 2024-08-19 17:24 | HO.SKINPHOTO ---
Location: Category: Stage: Length: Width: Depth: cm right AC area Location: Category: Stage: Length: Width: Depth: cm same site, later time, redness larger Location: Category: Stage: Length: Width: Depth: cm L wrist infiltration Location: Category: Stage: Length: Width: Depth: cm Location: Category: Stage: Length: Width: Depth: cm Location: Category: Stage: Length: Width: Depth: cm
--- NOTE | 2024-08-19 17:46 | PC.NURSE ---
Assumed care at 0700. At approx 0800, BPs dropped. Levophed titrated per MAR. Upon further inspection, IV appeared infiltrated. MD alerted. Per MD 1 dose of phentalomine given IV push, second dose given 30 min later subq around perimeter of infiltrated area. See MAR for details. Duration of infiltration was < 1 hr. At approx 1040, pt?s BP dropped. Swelling noted at current levophed IV site. MD alerted. Phentalomine ordered and administered; see MAR. Increased swelling noted at first infiltration site. MD aware. MD to place central line. Pt bladder scanned at 1330 for >435mL. Pt voided on commode at approx 1400.
[2024-08-19] MEDS: Hyaluronidase, Human Recomb. 15 UNIT in 0.9 % Sodium Chloride 0.9 ML SUBCUT (21:35)
[2024-08-20] VITALS (33 sets, daily range): BP systolic 94–131; BP diastolic 36–81; PULSE 85–117; RESP 10–21; TEMP 36.1–37; O2SAT 93–98; BMI 38.5
[2024-08-20] MEDS: Heparin Sodium,Porcine 5,000 UNIT/ML VIAL 5000 UNIT SUBCUT ×3 (03:25→17:16)
[2024-08-20 04:48] LABS: VBG Base Excess -1.9 mmol/L; VBG HCO3 24 mmol/L (22-26); VBG pCO2 47 mmHg; VBG pH 7.31 (7.32-7.43); VBG pO2 39 mmHg
[2024-08-20 05:11] LABS: Hematocrit 34.6 % (37.0-47.0); Hemoglobin 11.7 g/dl (12.0-16.0); Mean Corpuscular HGB Conc 33.8 g/dl (31.0-35.0); Mean Corpuscular Hemoglobin 31.5 pg (27.0-33.0); Mean Corpuscular Volume 93.3 fL (80.0-98.0); Mean Platelet Volume 11.1 fL (9.4-12.3); Red Blood Count 3.71 X10*6/uL (4.20-5.50); Red Cell Distribution Width 13.6 % (11.0-16.0)
[2024-08-20 05:12] LABS: Platelet Count 78 X10*3/uL (160-400); WBC ABN SCTR FOR CBC 1
[2024-08-20] MEDS: Piperacillin Sodium/Tazobactam 4.5 GM in 0.9 % Sodium Chloride 100 ML IV ×2 (05:17→17:17)
[2024-08-20 05:33] LABS: Alanine Aminotransferase 33 U/L (0-31); Albumin Level 3.4 g/dL (3.5-5.0); Alkaline Phosphatase 251 U/L (39-117); Anion Gap 19 (12-20); Aspartate Amino Transferase 12 U/L (5-31); Bilirubin Total 0.7 mg/dL (0.0-1.0); Blood Urea Nitrogen 105 mg/dL (9-16); Calcium 8.4 mg/dL (8.4-10.2); Carbon Dioxide 22 mmol/L (22-29); Chloride 101 mmol/L (96-108); Creatinine Clr Calc Pharmacy 8.1; Estimated Glomerular Filt Rate 8; Glucose Random 128 mg/dL (60-115); Magnesium 2.2 mg/dL (1.6-2.6); Phosphorus 3.5 mg/dL (2.7-4.5); Potassium 3.5 mmol/L (3.3-5.1); Sodium 138 mmol/L (135-145); Total Protein 5.5 g/dL (6.5-8.0)
[2024-08-20 06:10] LABS: Band Neutrophils Percent 3 % (3-5); Eosinophils Percent Manual 10 % (0-4); Lymphocytes Percent Manual 15 % (20-40); Macrocytosis 1+ (5-14) /OIF; Monocytes Percent Manual 2 % (2-11); Neutrophils Percent Manual 70 % (45-73); Platelet Estimate DECREASED (NORMAL); RBC Morphology NOTED
[2024-08-20 06:11] LABS: Acanthocytes 1+ (0-2) /OIF; Burr Cells 1+ (0-2) /OIF; Dohle Bodies PRESENT; Ovalocytes 1+ (5-14) /OIF; Platelet Morphology Comment NORMAL; Toxic Granulation PRESENT; Toxic Vacuolation PRESENT
[2024-08-20 06:12] LABS: Eosinophils Absolute Manual 1.8 X10*3/uL (0.0-0.4); Lymphocytes Absolute Manual 2.7 X10*3/uL (1.2-4.9); Monocytes Absolute Manual 0.4 X10*3/uL (0.1-1.2); Neutrophils Absolute Manual 12.9 X10*3/uL (2.0-8.3); White Blood Count 17.7 X10*3/uL (4.8-10.8)
--- NOTE | 2024-08-20 06:14 | PC.NURSE ---
Assumed care at 1900. Patient alert and oriented x4, pleasant and cooperative. Able to make needs known and calls appropriately. Afib on tele, HR 100s-130s. Levophed gtt infusing per MAR. Lung sounds diminished?to the bases, audible wheezing upon exertion. Abdomen soft and round, bowel sounds active x4. Patient voiding clear dark yellow urine in the bedside commode. Skin is warm and dry, notable infiltration site to right AC, area marked with marker. Right hip dressing remains clean dry and intact. Patient repositioned as tolerated, bed locked in lowest position, bed alarm on, call light within reach.
[2024-08-20 06:15] LABS: Venous Blood Gas Refer to POC result
[2024-08-20] MEDS: Norepinephrine Bitartrate/D5W 8 MG/250 ML PLAST..BAG 25.05 MG IVCONT (06:33)
[2024-08-20] MEDS: 0.9 % Sodium Chloride Flush 3 ML SYRINGE IVFLUSH ×2 (08:41→17:17)
[2024-08-20] MEDS: Potassium Chloride Packet 20 MEQ PACKET 40 MEQ PO (08:41)
--- NOTE | 2024-08-20 08:56 | PM.CNOR ---
History of Present Illness HPI Consult date: 08/20/24 Chief complaint: Sepsis Narrative: Ms. Rodriguez is a 78-year-old female status post right total hip arthroplasty performed on 02/26/[address] Roldan. Roughly 7 years later she developed a seroma leading to excising on 12/24/2021 and 12/30/2021. The patient was followed with the orthopedic service outpatient. On 12/11/2022 the patient was transitioned over to the general surgery service with Dr. Mosquera for management of chronic seroma. Since then, she has had multiple superficial skin infections requiring debridement and wound VAC placement. She does have temporary healing but then redevelops infection. She was mostly recently admitted to the ICU after a fall at home and while in the emergency department was found to have septic shock. Orthopedics was consulted for question of osteomyelitis around the right total hip arthroplasty. A CT scan was obtained and negative for any evidence of osteomyelitis. Review of Systems Review of Systems: Yes all other systems are reviewed and are negative PMFSH Past Medical History Medical History (Updated 08/18/24 @ 10:12 by Thomas Woods MD) Peripheral vascular disease SOULEYMANE (obstructive sleep apnea) Wound, open, hip or thigh with complication Encounter for general adult medical examination with abnormal findings Hip pain, right Preoperative cardiovascular examination Change in bowel movement Traumatic seroma of right thigh Postprocedural seroma of skin and subcutaneous tissue following other procedure Open wound of right hip and thigh Right rib fracture Menopause Pain management Pain management contract agreement Open wound of right lower leg with complication Shortness of breath Cough Edema Influenza A H1N1 infection Hospital discharge follow-up Cellulitis of right leg Varicose veins of right lower extremity with inflammation Enterococcus faecalis infection Abscess Hip pain, right Obesity Lymphedema Morbid obesity due to excess calories Pre-op evaluation Colon cancer screening Medicare annual wellness visit, subsequent Family history of anesthesia complication Back pain Arthritis Renal calculi Post-influenza syndrome Tremor Peripheral vascular disease Right bundle branch block (RBBB) Aortic valve calcification Mitral annular calcification Nocturnal hypoxemia COPD (chronic obstructive pulmonary disease) Restrictive lung disease Stasis edema of both lower extremities Nail fungus Chronic GERD Depression, major, recurrent Hypertension, essential Family History Family History Father No problems noted. Mother Alzheimer's disease Maternal Grandmother Cancer Maternal Grandfather No problems noted. Paternal Grandfather No problems noted. Paternal Grandmother No problems noted. Maternal Aunt Cancer Sister Colon cancer Son No problems noted. Daughter No problems noted. Surgical History Surgical History History of excision of lesion (10/20/23) History of total hip arthroplasty S/P gastric bypass History of surgery on lower extremity (01/25/23) History of surgery H/O colonoscopy History of cataract extraction History of bilateral tubal ligation History of tonsillectomy Social History Social History Household Members: None Household Members Other:: daughter Housing: House Housing Other:: mobile home Are you a primary care program resident to a significant other at home: No Do you presently have visiting nurse or other home services: No Alcohol intake: former Patient Tobacco Use Status: Former Tobacco user Tobacco use type: Cigarette Years Smoked: 40 Smoked in Last 30 Days: No e-Cigarette/Vaping Use: Currently Using Second Hand Smoke Exposure: No Use of substances other than those prescribed or required for medical reasons: No Currently Displaying Signs/Symptoms of Drug Intoxication Withdrawal: No Have you been hit, kicked, punched, or otherwise hurt by someone within the past year? If so, by whom?: No Advance Directives: Yes Advance Directives on File: Yes Advance Directives Date on File: 03/13/15 Recently lost weight without trying: No Nutrition Risks: Anorexia Patient : No service: No Current occupational status: retired and other Current occupation: right handed Cognitive needs: No Hearing needs: No Vision needs: No Meds Allergies Allergy/AdvReac Type Severity Reaction Status Date / Time sucralfate [Carafate] Allergy Intermediate hives Verified 08/17/24 14:34 NSAIDS (Non-Steroidal AdvReac Intermediate cannot Verified 08/17/24 14:34 Anti-Inflamma take due to gastric bypass history Active Medications: Current Medications Heparin Sodium (Porcine) (Heparin Sodium,Porcine 5,000 Unit/Ml Vial) 5,000 unit SUBCUT Q8H [facility] Last Admin: 08/20/24 08:40 Dose: 5,000 unit Norepinephrine Bitartrate (Levophed) 8 mg in 250 mls @ 0 mls/hr IVCONT .Q0M KENNEDY; Protocol Last Titration: 08/20/24 08:40 Dose: 0.14 mcg/kg/min, 21.92 mls/hr Piperacillin Sod/Tazobactam (Sod 4.5 gm/ Sodium Chloride) 100 mls @ 200 mls/hr IV Q12H [facility] Last Infusion: 08/20/24 05:59 Dose: Infused Vancomycin HCl 500 mg/ Sodium (Chloride) 110 mls @ 110 mls/hr IV Q48H [facility]Y Lactulose (Lactulose 20 Gm/30 Ml Solution) 30 gm PO BID [facility] Last Admin: 08/20/24 08:28 Dose: Not Given Morphine Sulfate (Morphine Sulfate 2 Mg/Ml Cartridge) 0.5 mg IVPUSH Q4H PRN; Protocol PRN Reason: Pain, Severe (Pain Scale 7-10) Last Admin: 08/19/24 10:11 Dose: 0.5 mg Pharmacy Consult (Consult Rx Vancomycin Dosing) 1 each MISCELLANE DAILY PRN PRN Reason: Consult order Simethicone (Simethicone 80 Mg Tab.Chew) 80 mg PO QIDWMHS PRN PRN Reason: flatulence Last Admin: 08/19/24 09:53 Dose: 80 mg Sodium Chloride (0.9 % Sodium Chloride Flush 3 Ml Syringe) [facility] Last Admin: 08/20/24 08:41 Dose: 3 ml Home Medications ?Medication ?Instructions ?Recorded ?Confirmed ?Last Taken ?Type ascorbic acid (vitamin C) 1,000 mg 1,000 mg PO DAILY 04/02/20 08/18/24 01/24/23 History tablet bupropion HCl 300 mg 24 hr tablet, 300 mg PO DAILY 04/02/20 08/18/24 01/24/23 History extended release (Wellbutrin XL) cholecalciferol (vitamin D3) 50 50 mcg PO BID 04/02/20 08/18/24 01/24/23 History mcg (2,000 unit) capsule ferrous sulfate 325 mg (65 mg 325 mg PO BEDTIME 04/02/20 08/18/24 Unknown History iron) tablet (Feosol) multivitamin (Daily Multi-Vitamin 1 tab PO BEDTIME 04/02/20 08/18/24 01/24/23 History tablet) escitalopram oxalate 20 mg tablet 20 mg PO DAILY 07/30/20 08/18/24 01/24/23 History (Lexapro) bupropion HCl 150 mg 24 hr tablet, 150 mg PO DAILY 08/06/21 08/18/24 01/24/23 History extended release propranolol 60 mg capsule,24 60 mg PO BEDTIME 09/19/21 08/18/24 01/24/23 History hr,extended release lorazepam 0.5 mg tablet 0.5 mg PO DAILY PRN Anxiety 06/24/22 08/18/24 01/24/23 History aripiprazole 10 mg tablet 10 mg PO DAILY 12/17/22 08/18/24 01/24/23 History calcium 250 mg-magnesium 40 mg-D3 1 tab PO DAILY 01/18/23 08/18/24 01/24/23 History 125 unit-zinc [id number]-hram tablet (Calcium Citrate Plus) ropinirole 0.25 mg tablet 0.25 mg PO BEDTIME 05/24/23 08/18/24 Unknown History primidone 50 mg tablet 50 mg PO BEDTIME 10/12/23 08/18/24 Unknown History alendronate 70 mg tablet (Fosamax) 70 mg PO [place] 08/17/24 08/18/24 Unknown History hydrochlorothiazide 25 mg tablet 25 mg PO DAILY 08/17/24 08/18/24 Unknown History omeprazole 40 mg capsule,delayed 40 mg PO DAILY@0630 08/17/24 08/18/24 Unknown History release sennosides 8.6 mg-docusate sodium 1 tab PO DAILY 08/17/24 08/18/24 Unknown History 50 mg tablet (Senexon-S) Physical Exam Vital Signs: Vital Signs: Last Vital Signs Temp 96.9 F 08/20/24 08:00 Pulse 106 H 08/20/24 08:40 Resp 20 08/20/24 08:00 BP 115/56 L 08/20/24 08:40 Pulse Ox 96 08/20/24 08:00 O2 Del Method Room Air 08/20/24 08:00 O2 Flow Rate 1 08/20/24 05:00 BMI result Body Mass Index 38.5 Const: General: cooperative, healthy appearing and no acute distress Resp: Effort & Inspection: normal respiratory effort and able to speak in complete sentences Extrem: Other: Right hip dressing is clean dry and intact. Able to dorsiflex and plantar flex. Able to perform active hip flexion and extension with mild groin pain. No groin pain reported with internal or external rotation. NVI. Results Labs 08/20/24 04:42 08/20/24 04:42 Labs: Abnormal lab results 08/20/24 Range/Units 04:42 WBC 17.7 H (4.8-10.8) X10*3/uL RBC 3.71 L (4.20-5.50) X10*6/uL Hgb 11.7 L (12.0-16.0) g/dl Hct 34.6 L (37.0-47.0) % Plt Count 78 L (160-400) X10*3/uL Lymphocytes % (Manual) 15 L (20-40) % Eosinophils % (Manual) 10 H (0-4) % Abs Neuts (Manual) 12.9 H (2.0-8.3) X10*3/uL Eosinophils # (Manual) 1.8 H (0.0-0.4) X10*3/uL VBG pH 7.31 L (7.32-7.43) BUN 105 H (9-16) mg/dL Creatinine 5.31 H* (0.5-1.4) mg/dL Random Glucose 128 H (60-115) mg/dL ALT 33 H (0-31) U/L Alkaline Phosphatase 251 H (39-117) U/L Total Protein 5.5 L (6.5-8.0) g/dL Albumin 3.4 L (3.5-5.0) g/dL H & H 08/17/24 08/18/24 08/19/24 Range/Units 14:50 04:43 04:33 Hgb 13.4 12.8 10.9 L (12.0-16.0) g/dl Hct 39.5 40.0 32.0 L (37.0-47.0) % 08/20/24 Range/Units 04:42 Hgb 11.7 L (12.0-16.0) g/dl Hct 34.6 L (37.0-47.0) % All other labs normal. Assessment and Plan (1) S/P total right hip arthroplasty: Status: Acute (2) Soft tissue infection: Status: Acute Plan Ms. Rodriguez is a 78-year-old female status post right total hip arthroplasty performed on 02/26/[address] Roldan. Roughly 7 years later she developed a seroma leading to excising on 12/24/2021 and 12/30/2021. The patient was followed with the orthopedic service outpatient. On 12/11/2022 the patient was transitioned over to the general surgery service with Dr. Mosquera for management of chronic seroma. Since then, she has had multiple superficial skin infections requiring debridement and wound VAC placement. She does have temporary healing but then redevelops infection. She was mostly recently admitted to the ICU after a fall at home and while in the emergency department was found to have septic shock. Orthopedics was consulted for question of osteomyelitis around the right total hip arthroplasty. A CT scan was obtained and negative for any evidence of osteomyelitis. There is no orthopedic intervention that is needed currently as there is no evidence of osteomyelitis. Recommendations from the general surgery team as they have been treating her for chronic seroma. Procedures Date of Service Date of Service: 08/20/24
--- NOTE | 2024-08-20 09:31 | P.PNCC_ITS ---
Subjective Subjective Date of Service: 08/20/24 Interval History: 78-year-old lady with underlying history of chronic right hip want, followed by wound care, previously required wound VAC by General surgery, also COPD, hypertension, PVD, SOULEYMANE admitted on 08/18/2024 with septic shock with likely soft tissue source requiring pressor support. Patient had CT of her hip wound that did not show underlying osteomyelitis. She was evaluated by General surgery orthopedic surgery with no plans for further procedures. No events overnight. Pressor requirements are improving, renal dysfunction is worsening. Critical Care Time (minutes): 45 Physical Exam 2 Vital Signs: Vital Signs: Last Vital Signs Temp 96.9 F 08/20/24 08:00 Pulse 110 H 08/20/24 09:00 Resp 18 08/20/24 09:00 BP 118/74 08/20/24 09:00 Pulse Ox 96 08/20/24 09:00 O2 Del Method Room Air 08/20/24 09:00 O2 Flow Rate 1 08/20/24 05:00 BMI result Body Mass Index 38.5 Const: General: no acute distress, alert and awake Eyes: Sclerae: sclerae normal EOM: EOMs intact bilaterally Neck: Neck: Yes no lymphadenopathy, Yes trachea midline and Yes supple Resp: Effort & Inspection: normal respiratory effort and no respiratory distress Auscultation: clear to auscultation bilaterally Cardio: Rate: regular rate Rhythm: regular rhythm Heart sounds: no gallops, no murmurs and no rubs GI: Palpation (GI): Soft to palpation and Other GI palpation findings present ( Nontender) Auscultation: normal bowel sounds Extrem: Other: Right hip chronic wound General: Yes no pedal edema, No clubbing and No cyanosis Objective Data Labs 08/20/24 04:42 08/20/24 04:42 Labs: Laboratory Results - last 24 hr 08/19/24 08/20/24 08/20/24 13:03 04:42 08:01 WBC 17.7 H RBC 3.71 L Hgb 11.7 L Hct 34.6 L MCV 93.3 MCH 31.5 MCHC 33.8 RDW 13.6 Plt Count 78 L MPV 11.1 Immature Gran % (Auto) Cancelled Neut % (Auto) Cancelled Lymph % (Auto) Cancelled [place] % (Auto) Cancelled Eos % (Auto) Cancelled Baso % (Auto) Cancelled Lymph # (Auto) Cancelled [place] # (Auto) Cancelled Eos # (Auto) Cancelled Baso # (Auto) Cancelled Abs Immat Gran (auto) Cancelled Absolute Neuts (auto) Cancelled Absolute Nucleated RBC 0.000 Nucleated RBC % (auto) 0.0 Neutrophils % (Manual) 70 Band Neutrophils % 3 Lymphocytes % (Manual) 15 L Monocytes % (Manual) 2 Eosinophils % (Manual) 10 H Abs Neuts (Manual) 12.9 H Lymphocytes # (Manual) 2.7 Monocytes # (Manual) 0.4 Eosinophils # (Manual) 1.8 H Toxic Granulation PRESENT Toxic Vacuolation PRESENT Dohle Bodies PRESENT Platelet Estimate DECREASED Plt Morphology Comment NORMAL RBC Morphology NOTED Macrocytosis 1+ (5-14) Ovalocytes 1+ (5-14) [place] Cells 1+ (0-2) Acanthocytes (Spur) 1+ (0-2) VBG pH 7.31 L VBG pCO2 47 VBG pO2 39 VBG HCO3 24 VBG O2 Saturation 70.0 VBG Base Excess -1.9 Sodium 138 Potassium 3.5 Chloride 101 Carbon Dioxide 22 Anion Gap 19 BUN 105 H Creatinine 5.31 H* Estim Creat Clear Calc 8.1 Estimated GFR 8 Random Glucose 128 H Calcium 8.4 D Phosphorus 3.5 Magnesium 2.2 Total Bilirubin 0.7 AST 12 ALT 33 H Alkaline Phosphatase 251 H Total Protein 5.5 L Albumin 3.4 L Random Vancomycin 16.9 16.0 Microbiology Microbiology Results: Microbiology 08/17/24 15:09 Blood - Venous Blood Culture - Preliminary No growth after 48 hours. 08/17/24 14:50 Blood - Venous Blood Culture - Preliminary No growth after 48 hours. 08/18/24 Unknown Urine clean catch - Clean Catch Midstream Urine Culture - Final No growth. Progress Note: A&P Assessment and plan (1) ANIYA (acute kidney injury): Status: Acute (2) Septic shock: Status: Acute (3) Soft tissue infection: Status: Acute Plan Assessment: 78-year-old lady with underlying COPD, PVD, chronic right hip wound admitted with septic shock with likely soft tissue source. Plan: Neuro: No acute issues. Cardiac: Septic shock, continue to titrate off pressor support as tolerated. Underlying PVD Pulmonary: No acute issues. Underlying COPD and SOULEYMANE. Renal: Acute renal failure with metabolic acidosis, likely secondary to ATN from septic shock. Oliguric. Continue to monitor renal indices and urine output. Endo: No acute issues. GI: No acute issues. ID: Septic shock with likely soft tissue source. General surgery and Orthopedic surgery services care appreciated. Continue broad-spectrum antibiotics. Cultures are negative to date. Heme/Onc: No acute issues. Psych: No acute issues. Miscellaneous: No acute issues. Prophylaxis: Heparin Diet: Regular Critical care time spent: 45 minutes Quality Stroke Does the patient have a stroke diagnosis?: No VTE Prior VTE?: No VTE Risk Level:: Medical - moderate - high VTE Device Contraindication: Treatment Not Indicated VTE Drug Contraindication: N/A - Med Ordered
--- NOTE | 2024-08-20 16:45 | PC.NURSE ---
Assumed care at 0700. Pt remains A&O x4, denies pain apart from movement. Pleasant affect. 1 assist OOB to commode. Levophed titrated per MAR. Pt ambulated to recliner w assistance. See shift assessments, MAR for further details.
[2024-08-20] MEDS: Norepinephrine Bitartrate/D5W 8 MG/250 ML PLAST..BAG 12.53 MG IVCONT (20:43)
[2024-08-21] VITALS (31 sets, daily range): BP systolic 98–129; BP diastolic 48–77; PULSE 88–122; RESP 10–23; TEMP 36–36.6; O2SAT 88–98; BMI 38.8
[2024-08-21] MEDS: Heparin Sodium,Porcine 5,000 UNIT/ML VIAL 5000 UNIT SUBCUT ×3 (02:36→17:58)
[2024-08-21] MEDS: Piperacillin Sodium/Tazobactam 4.5 GM in 0.9 % Sodium Chloride 100 ML IV ×2 (05:13→18:02)
[2024-08-21 05:25] LABS: Venous Blood Gas Refer to POC result
[2024-08-21 05:25] LABS: VBG Base Excess -1.9 mmol/L; VBG HCO3 24 mmol/L (22-26); VBG pCO2 45 mmHg; VBG pH 7.32 (7.32-7.43); VBG pO2 37 mmHg
--- NOTE | 2024-08-21 05:52 | PC.NURSE ---
Assumed care at 1900. Patient continues on levophed support, see MAR. Marginal improvement in right arm infiltration site. Patient able to ambulate 1 assist up to the commode throughout the night without incident. TLC to right IJ dressing not intact, site cleaned and redressed. Patient resting comfortably in bed, RR even and unlabored, bed locked in lowest position, bed alarm on, call polanco within reach.?
[2024-08-21 05:55] LABS: MANUAL DIFF FLAG NO
[2024-08-21 05:58] LABS: Basophils Absolute Auto 0.1 X10*3/uL (0.0-0.2); Basophils Percent Auto 0.5 % (0-2); Eosinophils Absolute Auto 0.8 X10*3/uL (0.0-0.4); Eosinophils Percent Auto 5.8 % (0-4); Hematocrit 33.7 % (37.0-47.0); Imm Gran Abs Auto 0.57 X10*3/uL (0.00-0.03); Imm Gran Pct Auto 4.3 % (0.0-0.4); Lymphocytes Absolute Auto 2.6 X10*3/uL (1.2-4.9); Lymphocytes Percent Auto 19.9 % (20-40); Mean Corpuscular HGB Conc 32.6 g/dl (31.0-35.0); Mean Corpuscular Hemoglobin 31.1 pg (27.0-33.0); Mean Corpuscular Volume 95.2 fL (80.0-98.0); Mean Platelet Volume 11.2 fL (9.4-12.3); Monocytes Absolute Auto 0.6 X10*3/uL (0.1-1.2); Monocytes Percent Auto 4.4 % (2-11); Neutrophils Absolute Auto 8.6 x10*3/uL (2.0-8.3); Neutrophils Percent Auto 65.1 % (45-73); Platelet Count 68 X10*3/uL (160-400); Red Blood Count 3.54 X10*6/uL (4.20-5.50); Red Cell Distribution Width 13.9 % (11.0-16.0); White Blood Count 13.2 X10*3/uL (4.8-10.8)
[2024-08-21 06:10] LABS: Vancomycin Random 14.1 mcg/mL (15-20)
[2024-08-21 06:21] LABS: Alanine Aminotransferase 21 U/L (0-31); Albumin Level 3.1 g/dL (3.5-5.0); Alkaline Phosphatase 176 U/L (39-117); Anion Gap 17 (12-20); Aspartate Amino Transferase 10 U/L (5-31); Bilirubin Total 0.5 mg/dL (0.0-1.0); Blood Urea Nitrogen 110 mg/dL (9-16); Calcium 8.4 mg/dL (8.4-10.2); Carbon Dioxide 22 mmol/L (22-29); Chloride 103 mmol/L (96-108); Creatinine Clr Calc Pharmacy 7.7; Estimated Glomerular Filt Rate 7; Glucose Random 118 mg/dL (60-115); Magnesium 2.2 mg/dL (1.6-2.6); Phosphorus 3.5 mg/dL (2.7-4.5); Potassium 3.4 mmol/L (3.3-5.1); Sodium 139 mmol/L (135-145); Total Protein 5.3 g/dL (6.5-8.0)
--- NOTE | 2024-08-21 06:24 | HE.PHANOTE ---
Re: Vanco Dose held 08/21, taking pt days to clear the load. Will check trough for 08/22 @ 0600.
--- NOTE | 2024-08-21 08:00 | PC.NURSE ---
assumed care 0700 08/21/24 patient stable, comfortable, educated on status, alertx4, no pain reported, and all questions answered. Triple lumen cath remains intact, dressing clean. R chronic wound dressing intact with some drainage visualized through 4x4 pad. per pt report, symptoms are improving, pain is improving with movement and ambulating. titrating levophed per MAR. pressor requirements steadily trending down. handed off 1900 on 08/21/24
[2024-08-21] MEDS: 0.9 % Sodium Chloride Flush 3 ML SYRINGE IVFLUSH ×2 (08:08→15:26)
[2024-08-21] MEDS: Potassium Chloride Packet 20 MEQ PACKET 40 MEQ PO (08:08)
[2024-08-21] MEDS: Lactulose 20 GM/30 ML SOLUTION 30 GM PO (08:11)
[2024-08-21] MEDS: Albumin Human 25 % 100 ML IV ×2 (08:12→14:00)
--- NOTE | 2024-08-21 08:13 | PM.PNGS ---
Subjective Subjective Date of Service: 08/21/24 Interval history: Continue reports of pain in the right hip with persistent drainage. Orthopedic evaluation noted and CT of right femur reviewed. No evidence of osteomyelitis or prosthetic infection by CT. Reviewed findings with the patient and her daughter today. Physical Exam Vital Signs: Vital Signs: Last Vital Signs Temp 96.9 F 08/21/24 08:00 Pulse 106 H 08/21/24 08:00 Resp 19 08/21/24 08:00 BP 123/62 08/21/24 08:00 Pulse Ox 95 08/21/24 08:00 O2 Del Method Room Air 08/21/24 08:00 O2 Flow Rate 1 08/20/24 22:51 BMI result Body Mass Index 38.8 Const: General: no acute distress Resp: Effort & Inspection: normal respiratory effort Skin: Other: Warm, dry, no rash Objective Data Active Medications Heparin Sodium (Porcine) (Heparin Sodium,Porcine 5,000 Unit/Ml Vial) 5,000 unit SUBCUT Q8H [facility] Last Admin: 08/21/24 02:36 Dose: 5,000 unit Documented By: BRITTNEE Norepinephrine Bitartrate (Levophed) 8 mg in 250 mls @ 0 mls/hr IVCONT .Q0M K[facility]EDY; Protocol Last Titration: 08/20/24 22:02 Dose: 0.1 mcg/kg/min, 15.66 mls/hr Documented By: BRITTNEE Piperacillin Sod/Tazobactam (Sod 4.5 gm/ Sodium Chloride) 100 mls @ 200 mls/hr IV Q12H [facility] Last Infusion: 08/21/24 05:50 Dose: Infused Documented By: BRITTNEE Vancomycin HCl 500 mg/ Sodium (Chloride) 110 mls @ 110 mls/hr IV Q48H [facility] Albumin Human (Kedbumin 25 %) 100 mls @ 100 mls/hr IV Q6H [facility] Stop: 08/21/24 14:59 Lactulose (Lactulose 20 Gm/30 Ml Solution) 30 gm PO BID [facility] Last Admin: 08/20/24 20:03 Dose: Not Given Documented By: BRITTNEE Non-Admin Reason: Physician Held Med Morphine Sulfate (Morphine Sulfate 2 Mg/Ml Cartridge) 0.5 mg IVPUSH Q4H PRN; Protocol PRN Reason: Pain, Severe (Pain Scale 7-10) Last Admin: 08/19/24 10:11 Dose: 0.5 mg Documented By: DAVID Pharmacy Consult (Consult Rx Vancomycin Dosing) 1 each MISCELLANE DAILY PRN PRN Reason: Consult order Simethicone (Simethicone 80 Mg Tab.Chew) 80 mg PO QIDWMHS PRN PRN Reason: flatulence Last Admin: 08/19/24 09:53 Dose: 80 mg Documented By: DAVID Sodium Chloride (0.9 % Sodium Chloride Flush 3 Ml Syringe) 3 ml IVFLUSH QSHIFT [facility] Last Admin: 08/21/24 00:24 Dose: Not Given Documented By: BRITTNEE Non-Admin Reason: IV Running Labs 08/21/24 04:53 08/21/24 04:53 Labs: Laboratory Results - last 24 hr 08/20/24 08/21/24 08/21/24 08:01 04:53 05:21 MCV 95.2 MCH 31.1 MCHC 32.6 RDW 13.9 Plt Count 68 L MPV 11.2 Immature Gran % (Auto) 4.3 H Neut % (Auto) 65.1 Lymph % (Auto) 19.9 L [place] % (Auto) 4.4 Eos % (Auto) 5.8 H Baso % (Auto) 0.5 Lymph # (Auto) 2.6 [place] # (Auto) 0.6 Eos # (Auto) 0.8 H Baso # (Auto) 0.1 Abs Immat Gran (auto) 0.57 H Absolute Neuts (auto) 8.6 H Absolute Nucleated RBC 0.000 Nucleated RBC % (auto) 0.0 VBG pH 7.32 VBG pCO2 45 VBG pO2 37 VBG HCO3 24 VBG O2 Saturation 70.0 VBG Base Excess -1.9 Anion Gap 17 Estim Creat Clear Calc 7.7 Estimated GFR 7 Random Glucose 118 H Calcium 8.4 Phosphorus 3.5 Magnesium 2.2 Total Bilirubin 0.5 AST 10 ALT 21 Alkaline Phosphatase 176 H Total Protein 5.3 L Albumin 3.1 L Random Vancomycin 16.0 14.1 L Procedures Date of Service Date of Service: 08/21/24 Progress Note: A&P Assessment and plan (1) Unspecified open wound, right hip, initial encounter: Status: Acute Plan 78-year-old female with 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 Despite the recurring infections there appears to be no evidence of prosthetic infection by CT. Patient's WBC is improving but she may benefit from further debridement of the wound with wound VAC placement. I discussed the procedure, risks, and alternatives with the patient and her daughter. She expressed understanding and consents to the surgery. She will be added onto the schedule for Wednesday if medically clear for general anesthesia. Time Spent With Patient Time: Total time managing care of this patient today ____ minutes. Quality Stroke Does the patient have a stroke diagnosis?: No VTE Prior VTE?: No VTE Risk Level:: Medical - moderate - high VTE Device Contraindication: Treatment Not Indicated VTE Drug Contraindication: N/A - Med Ordered
--- NOTE | 2024-08-21 08:28 | P.PNCC_ITS ---
Subjective Subjective Date of Service: 08/21/24 Interval History: Continues to require Levophed for vasopressor support Critical Care Time (minutes): 35 Physical Exam 2 Vital Signs: Vital Signs: Last Vital Signs Temp 96.9 F 08/21/24 08:00 Pulse 106 H 08/21/24 08:00 Resp 19 08/21/24 08:00 BP 123/62 08/21/24 08:00 Pulse Ox 95 08/21/24 08:00 O2 Del Method Room Air 08/21/24 08:00 O2 Flow Rate 1 08/20/24 22:51 BMI result Body Mass Index 38.8 General: In some acute distress, chronically ill appearing and tired appearing Nutritional Appearance: well nourished and overweight Eyes: appearance normal, both eyes and all related structures; Alignment and Position: alignment normal and position normal Neck: No lymphadenopathy, no thyromegaly Resp: bilateral air entry equal, occasional added sounds present Cardio: Regular rate, regular rhythm; Heart sounds: S1 normal heart sound present and S2 normal heart sound present GI: soft, nontender, no guarding, no hepatosplenomegaly : bladder normal to inspection, bladder normal to palpation, no renal angle tenderness Skin: no rashes or lesions noted and elasticity normal Neuro: oriented to person, oriented to place, oriented to time and moves all extremities Objective Data Labs 08/21/24 04:53 08/21/24 04:53 Labs: Laboratory Results - last 24 hr 08/21/24 08/21/24 04:53 05:21 WBC 13.2 H RBC 3.54 L Hgb 11.0 L Hct 33.7 L MCV 95.2 MCH 31.1 MCHC 32.6 RDW 13.9 Plt Count 68 L MPV 11.2 Immature Gran % (Auto) 4.3 H Neut % (Auto) 65.1 Lymph % (Auto) 19.9 L [place] % (Auto) 4.4 Eos % (Auto) 5.8 H Baso % (Auto) 0.5 Lymph # (Auto) 2.6 [place] # (Auto) 0.6 Eos # (Auto) 0.8 H Baso # (Auto) 0.1 Abs Immat Gran (auto) 0.57 H Absolute Neuts (auto) 8.6 H Absolute Nucleated RBC 0.000 Nucleated RBC % (auto) 0.0 VBG pH 7.32 VBG pCO2 45 VBG pO2 37 VBG HCO3 24 VBG O2 Saturation 70.0 VBG Base Excess -1.9 Sodium 139 Potassium 3.4 Chloride 103 Carbon Dioxide 22 Anion Gap 17 BUN 110 H Creatinine 5.58 H* Estim Creat Clear Calc 7.7 Estimated GFR 7 Random Glucose 118 H Calcium 8.4 Phosphorus 3.5 Magnesium 2.2 Total Bilirubin 0.5 AST 10 ALT 21 Alkaline Phosphatase 176 H Total Protein 5.3 L Albumin 3.1 L Random Vancomycin 14.1 L Microbiology Microbiology Results: Microbiology 08/17/24 15:09 Blood - Venous Blood Culture - Preliminary No growth after 48 hours. 08/17/24 14:50 Blood - Venous Blood Culture - Preliminary No growth after 48 hours. 08/18/24 Unknown Urine clean catch - Clean Catch Midstream Urine Culture - Final No growth. Progress Note: A&P Assessment and plan (1) COPD (chronic obstructive pulmonary disease): Status: Acute (2) Septic shock: Status: Acute (3) Anemia: Status: Acute (4) ANIYA (acute kidney injury): Status: Acute (5) GERD with esophagitis: Status: Acute (6) Chronic GERD: Status: Acute (7) Oropharyngeal dysphagia: Status: Acute Plan 78-year-old lady with underlying history of chronic right hip wound, followed by wound care, previously required wound VAC by General surgery, also COPD, hypertension, PVD, SOULEYMANE admitted on 08/18/2024 with septic shock with likely soft tissue source requiring pressor support. Patient had CT of her hip wound that did not show underlying osteomyelitis. She was evaluated by General surgery orthopedic surgery with no plans for further procedures. Septic shock: Possibly secondary to chronic right hip wound, post arthroplasty On Levophed support currently on 0.1, titrate Levophed to keep map above 65 mm Hg Respiratory: breathing stable history of sleep apnea, CPAP during night as needed GI: On oral feeds Renal: Acute kidney injury possibly secondary to ATN secondary to sepsis and septic shock No emergent indication for renal replacement therapy Baseline creatinine normal, creatinine today is 5.58 We will closely monitor I's and O's Avoid nephrotoxic medications Heme: Chronic anemia, closely monitor H&H, transfuse for hemoglobin less than 7 grams/deciliter Endocrine: Blood sugars under control Sliding scale insulin as needed Infectious disease: Pancultures negative so far On empiric vancomycin and Zosyn CT femur did not show any evidence of osteomyelitis CT abdomen suggested possible acute cholecystitis, US abdomen ruled out showed only hydrops with gall stones but not cholecystitits Musculoskeletal: Decubitus ulcer prevention protocol Lines: Right IJ TLC Prophylaxis: Heparin Quality Stroke Does the patient have a stroke diagnosis?: No VTE Prior VTE?: No VTE Risk Level:: Medical - moderate - high VTE Device Contraindication: Treatment Not Indicated VTE Drug Contraindication: N/A - Med Ordered
--- NOTE | 2024-08-21 10:27 | MHC.CM.PN ---
Pt continues on Levo for BP support: plan for the day: titrate off in anticipation of transfer to the medical floor: D/C Plan: return to home w/existing [facility]NA and family support.
--- NOTE | 2024-08-21 10:43 | MHC.CLN ---
PT WITH INCREASED NUTRITION NEEDS R/T PRESSURE INJURY NOTED PT WITH 16% NONSIGNIFICANT WT LOSS X1 YEAR, HOWEVER PT REMAINS MORBIDLY OBESE FOR HT PO INTAKE 25-50% DIET RX: CARDIAC-RECOMMEND 2GM NA DIET RECOMMEND ADDING ENSURE BID TO PROMOTE WOUND HEALING SUPP WILL PROVIDE 700KCALS, 40G PROTEIN MONITOR PO INTAKE AND ENCOURAGE SUPPLEMENT SEE ALSO FULL CLINICAL NUTRITION ASSESSMENT
[2024-08-21] MEDS: Norepinephrine Bitartrate/D5W 8 MG/250 ML PLAST..BAG 12.53 MG IVCONT (13:26)
[2024-08-22] VITALS (19 sets, daily range): BP systolic 91–124; BP diastolic 48–75; PULSE 85–110; RESP 10–30; TEMP 36.1–36.7; O2SAT 90–99; BMI 37.5
[2024-08-22] MEDS: 0.9 % Sodium Chloride Flush 3 ML SYRINGE IVFLUSH ×4 (00:30→20:41)
[2024-08-22] MEDS: Heparin Sodium,Porcine 5,000 UNIT/ML VIAL 5000 UNIT SUBCUT ×3 (01:19→17:15)
[2024-08-22 04:50] LABS: VBG Base Excess -0.1 mmol/L; VBG HCO3 26 mmol/L (22-26); VBG pCO2 53 mmHg; VBG pO2 42 mmHg
[2024-08-22 05:08] LABS: MANUAL DIFF FLAG NO
[2024-08-22 05:11] LABS: Venous Blood Gas Refer to POC result
[2024-08-22 05:14] LABS: Basophils Absolute Auto 0.1 X10*3/uL (0.0-0.2); Basophils Percent Auto 0.6 % (0-2); Eosinophils Absolute Auto 0.5 X10*3/uL (0.0-0.4); Eosinophils Percent Auto 5.7 % (0-4); Hematocrit 28.6 % (37.0-47.0); Hemoglobin 9.2 g/dl (12.0-16.0); Imm Gran Abs Auto 0.35 X10*3/uL (0.00-0.03); Imm Gran Pct Auto 3.9 % (0.0-0.4); Lymphocytes Absolute Auto 2.4 X10*3/uL (1.2-4.9); Lymphocytes Percent Auto 26.6 % (20-40); Mean Corpuscular HGB Conc 32.2 g/dl (31.0-35.0); Mean Corpuscular Hemoglobin 30.8 pg (27.0-33.0); Mean Corpuscular Volume 95.7 fL (80.0-98.0); Mean Platelet Volume 10.5 fL (9.4-12.3); Monocytes Absolute Auto 0.5 X10*3/uL (0.1-1.2); Monocytes Percent Auto 5.4 % (2-11); NRBC Pct Auto 0.2 /100WBC (0.0-0.2); Neutrophils Absolute Auto 5.2 x10*3/uL (2.0-8.3); Neutrophils Percent Auto 57.8 % (45-73); Platelet Count 67 X10*3/uL (160-400); Red Blood Count 2.99 X10*6/uL (4.20-5.50)
[2024-08-22 05:32] LABS: Alanine Aminotransferase 10 U/L (0-31); Alkaline Phosphatase 104 U/L (39-117); Anion Gap 14 (12-20); Aspartate Amino Transferase 9 U/L (5-31); Bilirubin Total 0.5 mg/dL (0.0-1.0); Blood Urea Nitrogen 116 mg/dL (9-16); Calcium 8.1 mg/dL (8.4-10.2); Carbon Dioxide 21 mmol/L (22-29); Chloride 110 mmol/L (96-108); Creatinine Clr Calc Pharmacy 7.7; Estimated Glomerular Filt Rate 7; Glucose Random 98 mg/dL (60-115); Magnesium 2.1 mg/dL (1.6-2.6); Phosphorus 3.7 mg/dL (2.7-4.5); Potassium 3.5 mmol/L (3.3-5.1); Sodium 141 mmol/L (135-145); Total Protein 4.9 g/dL (6.5-8.0)
[2024-08-22] MEDS: Piperacillin Sodium/Tazobactam 4.5 GM in 0.9 % Sodium Chloride 100 ML IV ×2 (05:58→17:15)
[2024-08-22 06:38] LABS: Vancomycin Random 12.7 mcg/mL (15-20)
--- NOTE | 2024-08-22 08:09 | PC.NURSE ---
assumed care 0700 08/22/24 patient stable, comfortable, educated on status, alertx4, no pain reported, and all questions answered. Triple lumen cath remains intact & clean. R chronic wound dressing changed by Night RN, (abd pad, wet to dry, taped on 4 sides). Clean Dry Intact. per pt report, symptoms are improving, pain is improving with movement and ambulating. levophed off since approx 0600. patient remains hemodynamicly stable. rhythm still controlled rate a-fib (90-110).
--- NOTE | 2024-08-22 08:16 | PM.PNGS ---
Subjective Subjective Date of Service: 08/22/24 Interval history: Patient with no new complaints. Dressings changed earlier this morning. She is now off the Levophed Physical Exam Vital Signs: Vital Signs: Last Vital Signs Temp 97.2 F 08/22/24 08:00 Pulse 104 H 08/22/24 08:00 Resp 19 08/22/24 08:00 BP 117/57 L 08/22/24 08:00 Pulse Ox 90 L 08/22/24 08:00 O2 Del Method Room Air 08/22/24 08:00 O2 Flow Rate 1 08/22/24 06:00 BMI result Body Mass Index 37.5 Const: General: no acute distress Nutritional Appearance: well nourished Orientation/consciousness: patient oriented x3 Resp: Effort & Inspection: normal respiratory effort and no respiratory distress Neuro: General: patient oriented x3 Extrem: Other: Open and draining right hip wound, clean dressings intact Objective Data Active Medications Heparin Sodium (Porcine) (Heparin Sodium,Porcine 5,000 Unit/Ml Vial) 5,000 unit SUBCUT Q8H [facility] Last Admin: 08/22/24 01:19 Dose: 5,000 unit Documented By: LILIANA Norepinephrine Bitartrate (Levophed) 8 mg in 250 mls @ 0 mls/hr IVCONT .Q0M [facility]; Protocol Last Titration: 08/22/24 04:46 Dose: 0 mcg/kg/min, 0 mls/hr Documented By: JEYSON Piperacillin Sod/Tazobactam (Sod 4.5 gm/ Sodium Chloride) 100 mls @ 200 mls/hr IV Q12H [facility] Last Infusion: 08/22/24 06:42 Dose: Infused Documented By: LILIANA Vancomycin HCl 500 mg/ Sodium (Chloride) 110 mls @ 110 mls/hr IV Q48H [facility] Lactulose (Lactulose 20 Gm/30 Ml Solution) 30 gm PO BID [facility] Last Admin: 08/22/24 08:13 Dose: Not Given Documented By: MODE Non-Admin Reason: multiple loose stools Morphine Sulfate (Morphine Sulfate 2 Mg/Ml Cartridge) 0.5 mg IVPUSH Q4H PRN; Protocol PRN Reason: Pain, Severe (Pain Scale 7-10) Last Admin: 08/19/24 10:11 Dose: 0.5 mg Documented By: DAVID Pharmacy Consult (Consult Rx Vancomycin Dosing) 1 each MISCELLANE DAILY PRN PRN Reason: Consult order Simethicone (Simethicone 80 Mg Tab.Chew) 80 mg PO QIDWMHS PRN PRN Reason: flatulence Last Admin: 08/19/24 09:53 Dose: 80 mg Documented By: DAVID Sodium Chloride (0.9 % Sodium Chloride Flush 3 Ml Syringe) 3 ml IVFLUSH QSHIFT KENNEDY Last Admin: 08/22/24 00:30 Dose: 3 ml Documented By: JEFFERSONOC Labs 08/22/24 04:45 08/22/24 04:45 Labs: Laboratory Results - last 24 hr 08/22/24 08/22/24 08/22/24 04:45 04:47 05:51 MCV 95.7 MCH 30.8 MCHC 32.2 RDW 14.0 Plt Count 67 L MPV 10.5 Immature Gran % (Auto) 3.9 H Neut % (Auto) 57.8 Lymph % (Auto) 26.6 [place] % (Auto) 5.4 Eos % (Auto) 5.7 H Baso % (Auto) 0.6 Lymph # (Auto) 2.4 [place] # (Auto) 0.5 Eos # (Auto) 0.5 H Baso # (Auto) 0.1 Abs Immat Gran (auto) 0.35 H Absolute Neuts (auto) 5.2 Absolute Nucleated RBC 0.020 H Nucleated RBC % (auto) 0.2 VBG pH 7.30 L VBG pCO2 53 VBG pO2 42 VBG HCO3 26 VBG O2 Saturation 75.0 VBG Base Excess -0.1 Anion Gap 14 Estim Creat Clear Calc 7.7 Estimated GFR 7 Random Glucose 98 Calcium 8.1 L Phosphorus 3.7 Magnesium 2.1 Total Bilirubin 0.5 AST 9 ALT 10 Alkaline Phosphatase 104 Total Protein 4.9 L Albumin 3.0 L Random Vancomycin 12.7 L Procedures Date of Service Date of Service: 08/22/24 Progress Note: A&P Assessment and plan (1) Unspecified open wound, right hip, initial encounter: Status: Acute Plan 78-year-old female with 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 Despite the recurring infections there appears to be no evidence of prosthetic infection by CT. Patient is scheduled for debridement of the right hip wound with probable wound VAC placement tomorrow in OR. I reviewed the procedure, risks, and alternatives in detail and she consents to the right hip wound debridement and wound VAC placement. Time Spent With Patient Time: Total time managing care of this patient today ____ minutes. Quality Stroke Does the patient have a stroke diagnosis?: No VTE Prior VTE?: No VTE Risk Level:: Medical - moderate - high VTE Device Contraindication: Treatment Not Indicated VTE Drug Contraindication: N/A - Med Ordered
--- NOTE | 2024-08-22 08:27 | P.PNCC_ITS ---
Subjective Subjective Date of Service: 08/22/24 Interval History: Improving pressor requirement, off vasopressor this morning No new complaints Critical Care Time (minutes): 35 Physical Exam 2 Vital Signs: Vital Signs: Last Vital Signs Temp 97.2 F 08/22/24 08:00 Pulse 104 H 08/22/24 08:00 Resp 19 08/22/24 08:00 BP 117/57 L 08/22/24 08:00 Pulse Ox 90 L 08/22/24 08:00 O2 Del Method Room Air 08/22/24 08:00 O2 Flow Rate 1 08/22/24 06:00 BMI result Body Mass Index 37.5 General: Elderly lady lying in the bed slightly dyspneic chronically ill-appearing Nutritional Appearance: well nourished and overweight Eyes: appearance normal, both eyes and all related structures; Alignment and Position: alignment normal and position normal Neck: No lymphadenopathy, no thyromegaly Resp: bilateral air entry equal, occasional added sounds present Cardio: Regular rate, regular rhythm; Heart sounds: S1 normal heart sound present and S2 normal heart sound present GI: soft, nontender, no guarding, no hepatosplenomegaly : bladder normal to inspection, bladder normal to palpation, no renal angle tenderness Skin: no rashes or lesions noted and elasticity normal Neuro: oriented to person, oriented to place, oriented to time and moves all extremities Objective Data Labs 08/22/24 04:45 08/22/24 04:45 Labs: Laboratory Results - last 24 hr 08/22/24 08/22/24 08/22/24 04:45 04:47 05:51 WBC 9.0 RBC 2.99 L Hgb 9.2 L Hct 28.6 L MCV 95.7 MCH 30.8 MCHC 32.2 RDW 14.0 Plt Count 67 L MPV 10.5 Immature Gran % (Auto) 3.9 H Neut % (Auto) 57.8 Lymph % (Auto) 26.6 [place] % (Auto) 5.4 Eos % (Auto) 5.7 H Baso % (Auto) 0.6 Lymph # (Auto) 2.4 [place] # (Auto) 0.5 Eos # (Auto) 0.5 H Baso # (Auto) 0.1 Abs Immat Gran (auto) 0.35 H Absolute Neuts (auto) 5.2 Absolute Nucleated RBC 0.020 H Nucleated RBC % (auto) 0.2 VBG pH 7.30 L VBG pCO2 53 VBG pO2 42 VBG HCO3 26 VBG O2 Saturation 75.0 VBG Base Excess -0.1 Sodium 141 Potassium 3.5 Chloride 110 H Carbon Dioxide 21 L Anion Gap 14 BUN 116 H Creatinine 5.59 H* Estim Creat Clear Calc 7.7 Estimated GFR 7 Random Glucose 98 Calcium 8.1 L Phosphorus 3.7 Magnesium 2.1 Total Bilirubin 0.5 AST 9 ALT 10 Alkaline Phosphatase 104 Total Protein 4.9 L Albumin 3.0 L Random Vancomycin 12.7 L Microbiology Microbiology Results: Microbiology 08/17/24 15:09 Blood - Venous Blood Culture - Preliminary No growth after 48 hours. 08/17/24 14:50 Blood - Venous Blood Culture - Preliminary No growth after 48 hours. 08/18/24 Unknown Urine clean catch - Clean Catch Midstream Urine Culture - Final No growth. Progress Note: A&P Assessment and plan (1) Depression, major, recurrent: Status: Acute (2) Hypertension, essential: Status: Acute (3) Acute hypotension: Status: Acute (4) Septic shock: Status: Acute (5) Soft tissue infection: Status: Acute (6) Sepsis: Status: Acute Plan 78-year-old lady with underlying history of chronic right hip wound, followed by wound care, previously required wound VAC by General surgery, also COPD, hypertension, PVD, SOULEYMANE admitted on 08/18/2024 with septic shock with likely soft tissue source requiring pressor support. Patient had CT of her hip wound that did not show underlying osteomyelitis. She was evaluated by General surgery orthopedic surgery with no plans for further procedures. Septic shock: Possibly secondary to chronic right hip wound, status post arthroplasty couple of years ago off levophed support this morning 6AM paroxysmal atrial fibrillation/flutter with RVR: will start low dose of metoprolol 12.5mg BID Respiratory: breathing stable history of sleep apnea, CPAP during night as needed GI: On oral feeds Renal: Acute kidney injury possibly secondary to ATN secondary to sepsis and septic shock, currently in plateau phase No emergent indication for renal replacement therapy Baseline creatinine normal, creatinine today is 5.98; good urine output over a litre in 24 hrs. We will closely monitor I's and O's Avoid nephrotoxic medications Heme: Chronic anemia, closely monitor H&H, transfuse for hemoglobin less than 7 grams/deciliter Endocrine: Blood sugars under control Sliding scale insulin as needed Infectious disease: Pancultures negative so far On empiric vancomycin and Zosyn CT femur did not show any evidence of osteomyelitis CT abdomen suggested possible acute cholecystitis, US abdomen ruled out showed only hydrops with gall stones but not cholecystitits Musculoskeletal: Decubitus ulcer prevention protocol Lines: Right IJ TLC Prophylaxis: Heparin Quality Stroke Does the patient have a stroke diagnosis?: No VTE Prior VTE?: No VTE Risk Level:: Medical - moderate - high VTE Device Contraindication: Treatment Not Indicated VTE Drug Contraindication: N/A - Med Ordered
[2024-08-22] MEDS: vancomycin HCL 500 MG in 0.9 % Sodium Chloride 100 ML 110 MG IV (08:30)
--- NOTE | 2024-08-22 15:27 | P.EN_ITS ---
Event Note Date of Service: 08/22/24 Event Note: 78-year-old woman admitted to the ICU on 08/17/2024 with weakness and confusion, sustained a fall and hit her head with subsequent headaches and periods of confusion. 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 Wound VAC in place, no other source of infection identified. 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 Since then she has had multiple superficial skin infections requiring debridement and wound VAC placement. Septic shock with hypotension secondary to hip joint abscess Likely from hip wound, initially had purulent drainage with wound VAC in place, has been seeing wound care nurse twice a week Required pressors while in the ICU, Seen and evaluated by Orthopedic surgery with no indication for orthopedic intervention Off pressors this morning On vancomycin and Zosyn Blood cultures have remained negative Wound care nurse consultation New atrial fibrillation/flutter Started on metoprolol 12.5 mg b.i.d. as per ICU provider Cardiology consultation ANIYA. Secondary to ATN from septic shock Baseline creatinine is normal, peaked at 5.59 Monitor BMP closely Nephrology consultation Good urine output Fall with head strike Head CT/cervical spine negative for traumatic injury COPD No exacerbation Peripheral vascular disease Chronic Mental health Continue home medications Obstructive sleep apnea CPAP at bedtime DVT prophylaxis with heparin Time Spent With Patient Time: Total time managing care of this patient today ____ minutes.
--- NOTE | 2024-08-22 16:59 | HO.WOUND ---
Wound Consult: Initial 78yr old?female admitted to [facility] on 08/17/24 - See progress notes and H&P for detailed history.? Wound consult placed for Right Hip.?Chart review reveals patient is followed for right hip by general surgery team - Dr. Mosquera set to take patient to OR for debridement tomorrow with possible wound vac. Will defer topical orders to surgical team. Please re-consult inpatient wound care nurse if topical recommendations are needed.
[2024-08-22] MEDS: Lactulose 20 GM/30 ML SOLUTION 30 GM PO (20:40)
[2024-08-22] MEDS: Metoprolol Tartrate 12.5 MG HALFTAB PO (20:40)
[2024-08-23] VITALS (8 sets, daily range): BP systolic 97–137; BP diastolic 55–72; PULSE 76–130; RESP 16–20; TEMP 36.1–36.6; O2SAT 93–98; BMI 36.9
[2024-08-23] MEDS: Heparin Sodium,Porcine 5,000 UNIT/ML VIAL 5000 UNIT SUBCUT ×3 (02:21→18:45)
[2024-08-23] MEDS: Piperacillin Sodium/Tazobactam 4.5 GM in 0.9 % Sodium Chloride 100 ML IV ×2 (05:00→18:46)
[2024-08-23 07:18] LABS: Vancomycin Random 16.6 mcg/mL (15-20)
--- NOTE | 2024-08-23 07:30 | HE.PHANOTE ---
RE: VANCO DOSING Trough came back as 16.6 mg/L, high for skin indication. Dose is held today, trough is scheduled for 08/24/24 @0600 before giving a dose.
[2024-08-23] MEDS: Lactulose 20 GM/30 ML SOLUTION 30 GM PO (07:50)
[2024-08-23] MEDS: Metoprolol Tartrate 12.5 MG HALFTAB PO ×3 (07:50→23:39)
[2024-08-23] MEDS: 0.9 % Sodium Chloride Flush 3 ML SYRINGE IVFLUSH ×3 (07:53→23:42)
--- NOTE | 2024-08-23 08:12 | CA_ITS ---
Transthoracic Echocardiogram Patient (Last, First, Middle): Mayra Rodriguez A Gender: Female Date of : 1945 Age: 78 Procedure Date: 08/23/2024 Procedure Type: Transthoracic [place]ocardi[place] [facility] [place]: 147.32 cm Weight: 79.83 kg BSA: 1.72 m2 Heart Rate: bpm BP: 119 / 58 mmHg Curber: RAHUL Referring MD: Neha Zee MD Interpreter And Translator: Edgar Payton MD Symptoms: new af Study Quality: Adequate ECG Rhythm: Atrial Fibrillation Conclusions: - 1. Normal LV ejection fraction of 65-70% 2. Severe biatrial enlargement 3. Severely dilated right ventricle with preserved contractility 4. Calcific aortic and mitral valve changes noted with normal cardiac valvular Dopplers 5. Normal RV systolic pressure 6. No gross pericardial Findings Left Ventricle Normal left ventricular size, thickness, and systolic function. The visually estimated ejection fraction is between 65-70%. Diastolic function is indeterminate on the basis of available data. Right Ventricle Severely increased right ventricular cavity size. There is normal right ventricular systolic function. Atria Severe biatrial enlargement. Interatrial shunt cannot be excluded. Aortic Valve There is mild calcification of the aortic valve. There is no aortic valve stenosis. There is no aortic valve regurgitation. Mitral Valve There is mild anterior and moderate posterior mitral leaflet thickening. There is moderate mitral annular calcification. There is trace mitral valve regurgitation. There is no mitral valve stenosis. Pulmonic Valve The pulmonic valve was not well visualized. Tricuspid Valve Likely normal tricuspid valve structure and function. There is mild tricuspid valve regurgitation. The right ventricular systolic pressure is normal. The right ventricular systolic pressure is 25 mmHg. Normal right atrial pressure. There is no evidence of pulmonary hypertension. Great Vessels The aorta was not well visualized. The pulmonary artery was not well visualized. There is no dilatation of the ascending aorta measuring 3.10 cm. Venous The inferior vena cava is normal in size and collapses greater than 50% with inspiration. Pericardium/Pleural There is no evidence of pericardial effusion. Measurements 2D Linear Measurements IVSd: 1.10 0.6-0.9/0.6-1.0 cm LVIDd: 4.01 3.9-5.3/4.2-5.9 cm LVIDd Index: 2.33 2.4-3.2/2.2-3.1 cm/m2 LVIDs: 2.31 2.0-3.6 cm LVPWd: 1.06 0.7-1.1 cm LA Diam: 4.60 2.7-3.8/3.0-4.0 cm LAIDs Index: 2.67 1.5-2.3 cm/m2 LV Mass: 177.22 67-162/88-224 g LV Mass Index: 103.03 43-95/49-115 g/m2 LVOT Diam: 2.00 3.0+(-)1.3 cm 2D Systolic Function EF 4C: 72.60 >55% EF 2C: 71.30 >55% EF BiP: 70.00 >55% Mitral Valve MV Pk E: 1.29 MV Decel Time: 235.00 E'Lateral: 13.70 E'Medial: 9.42 E/E' Med: 13.70 E/E' Lat: 9.40 PHT: 69.00 MVA PHT: 3.19 Decel [place]: 5.61 Aortic Valve AoV Pk Son: 1.52 AoV Pk Grad: 9.00 LVOT LVOT Pk Son: 1.04 LVOT Pk Grad: 4.00 LVOT Diam: 2.00 LVOT Area: 3.14 Diastolic Function MV Pk E: 1.29 E'Medial: 9.42 E/E' Med: 13.70 E' Laterial: 13.70 E/E' Lat: 9.40 Right Ventricle TAPSE (mm): 20.40 TVS' Son: 14.40 Tricuspid Valve TR Pk Son: 2.32 TR Pk Grad: 22.00 RA Press: 3.00 RVSP: 25.00 Great Vessels Aorta Sinus of Valsalva: 3.88 2.0-3.5 cm Ao Asc: 3.10 2.1-3.4 cm Updated in Other Vendor System with Status of Final Edgar Payton MD electronically signed on 08/23/2024 4:22:43 PM with status of Final
[2024-08-23 08:50] LABS: Hematocrit 32.1 % (37.0-47.0); Hemoglobin 10.5 g/dl (12.0-16.0); Mean Corpuscular HGB Conc 32.7 g/dl (31.0-35.0); Mean Corpuscular Hemoglobin 31.4 pg (27.0-33.0); Mean Corpuscular Volume 96.1 fL (80.0-98.0); Mean Platelet Volume 9.9 fL (9.4-12.3); Red Blood Count 3.34 X10*6/uL (4.20-5.50); White Blood Count 8.9 X10*3/uL (4.8-10.8)
[2024-08-23 09:04] LABS: Platelet Count 90 X10*3/uL (160-400)
--- NOTE | 2024-08-23 10:34 | MHC.CM.PN ---
Per ROUNDS discussion, Patient is not yet medically cleared for dc (just up from ICU, Afib, needs wound vac); Home/resume vna is the goal and CM will continue to follow.
--- NOTE | 2024-08-23 10:48 | P.CONCA_ITS ---
History of Present Illness History of Present Illness Date of Service: 08/23/24 Requesting physician: Neena Merrill Consult reason: atrial fibrillation Chief complaint: Sepsis Narrative: I was consulted to see Mayra in cardiology consultation today for new onset atrial fibrillation. She is a 78 year female with multiple chronic medical problems admitted with septic shock and acute kidney injury. Persistent with significantly elevated creatinine so. Developed atrial fibrillation. Prior to 2 days ago she require vasopressor support for blood pressure maintenance. Vasopressors have been discontinued yesterday and a blood pressures been stable. Remains in atrial fibrillation borderline elevated heart rate. Denies any cardiac symptoms. Denies any worsening shortness of breath. No heart failure decompensation noted. Cardiology consult was sought for management of atrial fibrillation. Review of Systems 2 Constitutional: Constitutional: Reports fatigue and Reports weakness Eyes: Eyes: Reports no additional eye complaints Cardiovascular: Cardiovascular: Reports no additional cardiovascular complaints Respiratory: Respiratory: Reports no additional respiratory complaints Gastrointestinal: Gastrointestinal: Reports no additional gastrointestinal complaints Musculoskeletal: Musculoskeletal: Reports no additional musculoskeletal complaints Neurologic: Reports weakness Endocrine: Endocrine: Reports fatigue PMFSH Past Medical History Medical History Peripheral vascular disease SOULEYMANE (obstructive sleep apnea) Wound, open, hip or thigh with complication Encounter for general adult medical examination with abnormal findings Hip pain, right Preoperative cardiovascular examination Change in bowel movement Traumatic seroma of right thigh Postprocedural seroma of skin and subcutaneous tissue following other procedure Open wound of right hip and thigh Right rib fracture Menopause Pain management Pain management contract agreement Open wound of right lower leg with complication Shortness of breath Cough Edema Influenza A H1N1 infection Hospital discharge follow-up Cellulitis of right leg Varicose veins of right lower extremity with inflammation Enterococcus faecalis infection Abscess Hip pain, right Obesity Lymphedema Morbid obesity due to excess calories Pre-op evaluation Colon cancer screening Medicare annual wellness visit, subsequent Family history of anesthesia complication Back pain Arthritis Renal calculi Post-influenza syndrome Tremor Peripheral vascular disease Right bundle branch block (RBBB) Aortic valve calcification Mitral annular calcification Nocturnal hypoxemia COPD (chronic obstructive pulmonary disease) Restrictive lung disease Stasis edema of both lower extremities Nail fungus Chronic GERD Depression, major, recurrent Hypertension, essential Family History Family History Father No problems noted. Mother Alzheimer's disease Maternal Grandmother Cancer Maternal Grandfather No problems noted. Paternal Grandfather No problems noted. Paternal Grandmother No problems noted. Maternal Aunt Cancer Sister Colon cancer Son No problems noted. Daughter No problems noted. Surgical History Surgical History History of excision of lesion (10/20/23) History of total hip arthroplasty S/P gastric bypass History of surgery on lower extremity (01/25/23) History of surgery H/O colonoscopy History of cataract extraction History of bilateral tubal ligation History of tonsillectomy Social History Social History Household Members: None Household Members Other:: daughter Housing: House Housing Other:: mobile home Are you a primary wound care specialist to a significant other at home: No Do you presently have visiting nurse or other home services: No Alcohol intake: former Patient Tobacco Use Status: Former Tobacco user Tobacco use type: Cigarette Years Smoked: 40 Smoked in Last 30 Days: No e-Cigarette/Vaping Use: Currently Using Second Hand Smoke Exposure: No Use of substances other than those prescribed or required for medical reasons: No Currently Displaying Signs/Symptoms of Drug Intoxication Withdrawal: No Have you been hit, kicked, punched, or otherwise hurt by someone within the past year? If so, by whom?: No Advance Directives: Yes Advance Directives on File: Yes Advance Directives Date on File: 03/13/15 Recently lost weight without trying: No Nutrition Risks: Anorexia Patient : No service: No Current occupational status: retired and other Current occupation: right handed Cognitive needs: No Hearing needs: No Vision needs: No Meds Allergies Allergy/AdvReac Type Severity Reaction Status Date / Time sucralfate [Carafate] Allergy Intermediate hives Verified 08/17/24 14:34 NSAIDS (Non-Steroidal AdvReac Intermediate cannot Verified 08/17/24 14:34 Anti-Inflamma take due to gastric bypass history Active Medications: Current Medications Heparin Sodium (Porcine) (Heparin Sodium,Porcine 5,000 Unit/Ml Vial) 5,000 unit SUBCUT Q8H [facility] Last Admin: 08/23/24 09:31 Dose: 5,000 unit Piperacillin Sod/Tazobactam (Sod 4.5 gm/ Sodium Chloride) 100 mls @ 200 mls/hr IV Q12H [facility] Last Infusion: 08/23/24 05:30 Dose: Infused Vancomycin HCl 500 mg/ Sodium (Chloride) 110 mls @ 110 mls/hr IV Q48H [facility] Lactulose (Lactulose 20 Gm/30 Ml Solution) 30 gm PO BID [facility] Last Admin: 08/23/24 07:50 Dose: 30 gm Metoprolol Tartrate (Metoprolol Tartrate 12.5 Mg Halftab) 12.5 mg PO BID [facility]; Protocol Last Admin: 08/23/24 07:50 Dose: 12.5 mg Pharmacy Consult (Consult Rx Vancomycin Dosing) 1 each MISCELLANE DAILY PRN PRN Reason: Consult order Simethicone (Simethicone 80 Mg Tab.Chew) 80 mg PO QIDWMHS PRN PRN Reason: flatulence Last Admin: 08/19/24 09:53 Dose: 80 mg Sodium Chloride (0.9 % Sodium Chloride Flush 3 Ml Syringe) 3 ml IVFLUSH QSHIFT [facility] Last Admin: 08/23/24 07:53 Dose: 3 ml Home Medications ?Medication ?Instructions ?Recorded ?Confirmed ?Last Taken ?Type ascorbic acid (vitamin C) 1,000 mg 1,000 mg PO DAILY 04/02/20 08/18/24 01/24/23 History tablet bupropion HCl 300 mg 24 hr tablet, 300 mg PO DAILY 04/02/20 08/18/24 01/24/23 History extended release (Wellbutrin XL) cholecalciferol (vitamin D3) 50 50 mcg PO BID 04/02/20 08/18/24 01/24/23 History mcg (2,000 unit) capsule ferrous sulfate 325 mg (65 mg 325 mg PO BEDTIME 04/02/20 08/18/24 Unknown History iron) tablet (Feosol) multivitamin (Daily Multi-Vitamin 1 tab PO BEDTIME 04/02/20 08/18/24 01/24/23 History tablet) escitalopram oxalate 20 mg tablet 20 mg PO DAILY 07/30/20 08/18/24 01/24/23 History (Lexapro) bupropion HCl 150 mg 24 hr tablet, 150 mg PO DAILY 08/06/21 08/18/24 01/24/23 History extended release propranolol 60 mg capsule,24 60 mg PO BEDTIME 09/19/21 08/18/24 01/24/23 History hr,extended release lorazepam 0.5 mg tablet 0.5 mg PO DAILY PRN Anxiety 06/24/22 08/18/24 01/24/23 History aripiprazole 10 mg tablet 10 mg PO DAILY 12/17/22 08/18/24 01/24/23 History calcium 250 mg-magnesium 40 mg-D3 1 tab PO DAILY 01/18/23 08/18/24 01/24/23 History 125 unit-zinc 3.46bd-vot-xrlh tablet (Calcium Citrate Plus) ropinirole 0.25 mg tablet 0.25 mg PO BEDTIME 05/24/23 08/18/24 Unknown History primidone 50 mg tablet 50 mg PO BEDTIME 10/12/23 08/18/24 Unknown History alendronate 70 mg tablet (Fosamax) 70 mg PO [place] 08/17/24 08/18/24 Unknown History hydrochlorothiazide 25 mg tablet 25 mg PO DAILY 08/17/24 08/18/24 Unknown History omeprazole 40 mg capsule,delayed 40 mg PO DAILY@0630 08/17/24 08/18/24 Unknown History release sennosides 8.6 mg-docusate sodium 1 tab PO DAILY 08/17/24 08/18/24 Unknown History 50 mg tablet (Senexon-S) Physical Exam 2 Vital Signs: Vital Signs: Last Vital Signs Temp 97.6 F 08/23/24 08:00 Pulse 130 H 08/23/24 08:00 Resp 18 08/23/24 08:00 BP 137/69 08/23/24 08:00 Pulse Ox 94 08/23/24 08:00 O2 Del Method Room Air 08/23/24 08:00 O2 Flow Rate 1 08/22/24 06:00 BMI result Body Mass Index 36.9 Const: General: cooperative, comfortable, no acute distress, alert and awake Nutritional Appearance: obese Orientation/consciousness: patient oriented x3 HEENT: Head: Yes normocephalic and Yes atraumatic Neck: Neck: Yes trachea midline, Yes supple and Yes no JVD Resp: Effort & Inspection: decreased respiratory effort Auscultation: no rales, no wheezes and diminished lung sounds Cardio: Jugular venous distension: no JVD Rate: tachycardic Rhythm: a bnormal rhythm irregularly irregular Heart sounds: S1 normal heart sound present, S2 normal heart sound present, no click, no gallops and no murmurs GI: Auscultation: normal bowel sounds Skin: General skin exam: no rashes or lesions noted Neuro: General: patient oriented x3 and no focal motor deficits Objective Labs and Meds 08/23/24 08:27 08/22/24 04:45 Lab results: Laboratory Results - last 24 hr 08/23/24 08/23/24 06:08 08:27 WBC 8.9 RBC 3.34 L Hgb 10.5 L Hct 32.1 L MCV 96.1 MCH 31.4 MCHC 32.7 RDW 14.0 Plt Count 90 L D MPV 9.9 Absolute Nucleated RBC 0.000 Nucleated RBC % (auto) 0.0 Hold Purple Top SEE NOTE Random Vancomycin 16.6 Assessment and Plan (1) Atrial fibrillation: Status: Acute New onset atrial fibrillation this elderly woman without any obvious cardiac decompensation at this point time. Rate is not adequately controlled. At this point time will increase metoprolol to 12.5 mg q.6 hours and maximize as tolerated. Blood pressure is now stabilized. Most likely induced by her acute medical illness but now persist. She had underlying multiple cardiovascular risk factors that promote see her development of atrial fibrillation. Given her multiple risk factors will require oral anticoagulation therapy although her renal function is significantly reduced. Would consider warfarin therapy given her renal function unless she was going to end up with renal replacement therapy at which point time Eliquis can be used then he has been approved to be used in that setting. Will follow with you Procedures Date of Service Date of Service: 08/23/24
[2024-08-23 12:09] LABS: Creatinine Clr Calc Pharmacy 7.4; Estimated Glomerular Filt Rate 7
[2024-08-23 12:14] LABS: Creatinine Clr Calc Pharmacy 7.5; Estimated Glomerular Filt Rate 7
[2024-08-23 12:17] LABS: Anion Gap 18 (12-20); Blood Urea Nitrogen 107 mg/dL (9-16); Calcium 8.9 mg/dL (8.4-10.2); Carbon Dioxide 24 mmol/L (22-29); Chloride 107 mmol/L (96-108); Glucose Random 98 mg/dL (60-115); Potassium 3.9 mmol/L (3.3-5.1); Sodium 145 mmol/L (135-145)
--- NOTE | 2024-08-23 12:18 | MHC.CLN ---
F/U PT WITH INCREASED NUTRITION NEEDS R/T PRESSURE INJURY PO INTAKE 50% CONSISTENTLY DIET RX: 2GM NA DIET-APPROPRIATE RECEIVING ENSURE BID TO PROMOTE WOUND HEALING SUPP PROVIDES 700KCALS, 40G PROTEIN MONITOR PO INTAKE AND ENCOURAGE SUPPLEMENT
--- NOTE | 2024-08-23 16:35 | HO.PM.IMPN ---
Subjective Subjective Date of Service: 08/23/24 Interval History: feeling much better ambulating without assistance in AF with rate in 90s Review of Systems Review of Systems: Yes all other systems are reviewed and are negative Physical Exam Vital Signs: Vital Signs: Last Vital Signs Temp 97.6 F 08/23/24 11:04 Pulse 96 08/23/24 11:04 Resp 18 08/23/24 11:04 BP 110/58 L 08/23/24 11:21 Pulse Ox 98 08/23/24 11:04 O2 Del Method Room Air 08/23/24 11:04 O2 Flow Rate 1 08/22/24 06:00 BMI result Body Mass Index 36.9 Gen: in no acute distress HEENT: sclera anicteric, moist mucus membranes Neck: supple Lungs: clear to auscultation bilaterally Heart: irregular, no murmurs Abd: soft, non-tender, non-distended Ext: no edema, large open R hip wound Skin: warm/well-perfused Neuro: alert and oriented x3, no focal findings Psych: appropriate affect Objective Data Active Medications Heparin Sodium (Porcine) (Heparin Sodium,Porcine 5,000 Unit/Ml Vial) 5,000 unit SUBCUT Q8H [facility] Last Admin: 08/23/24 09:31 Dose: 5,000 unit Documented By: DILLON Piperacillin Sod/Tazobactam (Sod 4.5 gm/ Sodium Chloride) 100 mls @ 200 mls/hr IV Q12H [facility] Last Infusion: 08/23/24 05:30 Dose: Infused Documented By: MOR Vancomycin HCl 500 mg/ Sodium (Chloride) 110 mls @ 110 mls/hr IV Q48H [facility] Lactulose (Lactulose 20 Gm/30 Ml Solution) 30 gm PO BID [facility] Last Admin: 08/23/24 07:50 Dose: 30 gm Documented By: DILLON Metoprolol Tartrate (Metoprolol Tartrate 12.5 Mg Halftab) 12.5 mg PO BID [facility]; Protocol Last Admin: 08/23/24 07:50 Dose: 12.5 mg Documented By: DILLON Pharmacy Consult (Consult Rx Vancomycin Dosing) 1 each MISCELLANE DAILY PRN PRN Reason: Consult order Simethicone (Simethicone 80 Mg Tab.Chew) 80 mg PO QIDWMHS PRN PRN Reason: flatulence Last Admin: 08/19/24 09:53 Dose: 80 mg Documented By: DAVID Sodium Chloride (0.9 % Sodium Chloride Flush 3 Ml Syringe) 3 ml IVFLUSH QSHIFT [facility] Last Admin: 08/23/24 07:53 Dose: 3 ml Documented By: DILLON Labs 08/23/24 08:27 08/23/24 08:27 Labs: Laboratory Results - last 24 hr 08/23/24 08/23/24 08/23/24 06:08 08:27 08:27 MCV 96.1 MCH 31.4 MCHC 32.7 RDW 14.0 Plt Count 90 L D MPV 9.9 Absolute Nucleated RBC 0.000 Nucleated RBC % (auto) 0.0 Hold Purple Top SEE NOTE Anion Gap 18 Estim Creat Clear Calc 7.4 7.5 Estimated GFR 7 Random Glucose Calcium Random Vancomycin 16.6 08/23/24 08:27 MCV MCH MCHC RDW Plt Count MPV Absolute Nucleated RBC Nucleated RBC % (auto) Hold Purple Top Anion Gap Estim Creat Clear Calc Estimated GFR 7 Random Glucose 98 Calcium 8.9 D Random Vancomycin Microbiology Microbiology Results: Microbiology 08/17/24 15:09 Blood Culture - Final Blood - Venous No growth after 5 days. 08/17/24 14:50 Blood Culture - Final Blood - Venous No growth after 5 days. Assessment and Plan (1) Septic shock: Status: Acute Assessment and Plan: d6 for 78yo F with COPD + PVD + hx total R hip arthoplasty [2015] with crhonic seroma admitted to ICU 08/17/24 with septic shock suspected due to infected wound of R hip, stepped down to C 08/22/24 septic shock due to wound infection - per Orthopedics, no joint infection - developed seroma in 2021 leading to surgical excision requiring multiple rounds of debridement and VAC placement - Gen Surg following; operative debridement and VAC on hold pending improvement in renal function - continue vancomycin + piperacillin-tazobactam 08/22- - blood cultures negative - leukocytosis resolved new-onset AF - increase metoprolol to 12.5 mg q6h; Cardiology consulted; TTE 08/23/24: 1. Normal LV ejection fraction of 65-70% 2. Severe biatrial enlargement 3. Severely dilated right ventricle with preserved contractility 4. Calcific aortic and mitral valve changes noted with normal cardiac valvular Dopplers 5. Normal RV systolic pressure 6. No gross pericardial - will need full-dose anticoagulation eventually; holding for surgical intervention ANIYA due to ATN from septic shock - SCr plateaued, Nephrology following, no HD indicated, has good urine output, await renal recovery SOULEYMANE - CPAP at night VTE ppx - UFH dispo - eventual home with VNA In my clinical judgment, the patient requires continued inpatient hospitalization for the following reasons: IV ABX, operative intervention, ANIYA Total time managing care of this patient today: 45 minutes. Quality Stroke Does the patient have a stroke diagnosis?: No VTE Prior VTE?: No VTE Risk Level:: Medical - moderate - high VTE Device Contraindication: Treatment Not Indicated VTE Drug Contraindication: N/A - Med Ordered
--- NOTE | 2024-08-23 17:10 | HO.WOUND ---
Addendum entered by Jeny Alvares RN 08/25/24 11:37: Wound Consult for d/c to home and follow up for surgery outpt per provider. REquest made for topical recommendations for home. Based on assessment from 08/23/24 she will benefit from Durafiber AG packing every other day. She is to have Home VNA services continue when at home. Topical Recommendations: Right Hip - Cleanse with NS, pat dry. Apply skin prep, lightly pack with Durafiber AG (Hydrofiber / Alginate) be sure to leave a wick for easy and complete removal, followed by dry gauze and ABD pad. Change every other day. Original Note: Wound Consult: Follow up 78yr old?female admitted to [facility] on 08/17/24 - See progress notes and H&P for detailed history.? Wound consult placed for Right Hip.?Chart review reveals patient is followed for right hip by general surgery team - Dr. Mosquera set to take patient to OR for debridement with possible wound vac in future. Direct care team requested assistance as no order for topical care in [facility]. Dressing was already removed and skin assessed - see photo below. Recommend saline moist packing gauze followed by dry gauze and ABD pad. Change daily. Right Hip Topical Recommendations: Right Hip - Cleanse with NS, pat dry. Apply skin prep, lightly pack with saline moist packing gauze followed by dry gauze and ABD pad. Change daily.
--- NOTE | 2024-08-23 20:43 | P.CONNP_ITS ---
History of Present Illness Reason for Consult Consult date: 08/23/24 Reason for consult: ANIYA Chief Complaint Chief complaint: Sepsis History of Present Illness Narrative: 78-year-old female with normal renal function but with past medical history of right hip wound ( s/p wound vac)? follows up with wound care x2 a week,?hypertension, lymphedema, peripheral vascular disease, who presented to emergency department? with weakness and confusion.? Prior to presentation, she sustained a fall,? where she hit her head and since? she has been feeling weak, with periods of confusion.?In the emergency department patient?s blood pressure 60/31,? tachycardic to 115. Mentating properly.? ?Laboratory data was significant for? sodium 132, potassium 3.2, BUN 88, creatinine 4.79, lactic acid 2.2, ALT 114, alk phos 225, CK 171, total protein 5.8 albumin 2.9. Patient received 3 L bolus, ceftriaxone 2 g, vancomycin 2g,? Zosyn 4.5, and started on phenylephrine drip and was admitted in ICU. She developed worsening of her renal function with oliguria. Nephrology has been consulted to assist in her clinical care during her current hospital stay? Review of Systems Review of Systems Yes all other systems are reviewed and are negative PMFSH Past Medical History Medical History Peripheral vascular disease SOULEYMANE (obstructive sleep apnea) Wound, open, hip or thigh with complication Encounter for general adult medical examination with abnormal findings Hip pain, right Preoperative cardiovascular examination Change in bowel movement Traumatic seroma of right thigh Postprocedural seroma of skin and subcutaneous tissue following other procedure Open wound of right hip and thigh Right rib fracture Menopause Pain management Pain management contract agreement Open wound of right lower leg with complication Shortness of breath Cough Edema Influenza A H1N1 infection Hospital discharge follow-up Cellulitis of right leg Varicose veins of right lower extremity with inflammation Enterococcus faecalis infection Abscess Hip pain, right Obesity Lymphedema Morbid obesity due to excess calories Pre-op evaluation Colon cancer screening Medicare annual wellness visit, subsequent Family history of anesthesia complication Back pain Arthritis Renal calculi Post-influenza syndrome Tremor Peripheral vascular disease Right bundle branch block (RBBB) Aortic valve calcification Mitral annular calcification Nocturnal hypoxemia COPD (chronic obstructive pulmonary disease) Restrictive lung disease Stasis edema of both lower extremities Nail fungus Chronic GERD Depression, major, recurrent Hypertension, essential Family History Family History Father No problems noted. Mother Alzheimer's disease Maternal Grandmother Cancer Maternal Grandfather No problems noted. Paternal Grandfather No problems noted. Paternal Grandmother No problems noted. Maternal Aunt Cancer Sister Colon cancer Son No problems noted. Daughter No problems noted. Surgical History Surgical History History of excision of lesion (10/20/23) History of total hip arthroplasty S/P gastric bypass History of surgery on lower extremity (01/25/23) History of surgery H/O colonoscopy History of cataract extraction History of bilateral tubal ligation History of tonsillectomy Social History Social History Household Members: None Household Members Other:: daughter Housing: House Housing Other:: mobile home Are you a primary care coordination manager to a significant other at home: No Do you presently have visiting nurse or other home services: No Alcohol intake: former Patient Tobacco Use Status: Former Tobacco user Tobacco use type: Cigarette Years Smoked: 40 Smoked in Last 30 Days: No e-Cigarette/Vaping Use: Currently Using Second Hand Smoke Exposure: No Use of substances other than those prescribed or required for medical reasons: No Currently Displaying Signs/Symptoms of Drug Intoxication Withdrawal: No Have you been hit, kicked, punched, or otherwise hurt by someone within the past year? If so, by whom?: No Advance Directives: Yes Advance Directives on File: Yes Advance Directives Date on File: 03/13/15 Recently lost weight without trying: No Nutrition Risks: Anorexia Patient : No service: No Current occupational status: retired and other Current occupation: right handed Cognitive needs: No Hearing needs: No Vision needs: No Meds Allergies Allergy/AdvReac Type Severity Reaction Status Date / Time sucralfate [Carafate] Allergy Intermediate hives Verified 08/17/24 14:34 NSAIDS (Non-Steroidal AdvReac Intermediate cannot Verified 08/17/24 14:34 Anti-Inflamma take due to gastric bypass history Active Medications: Current Medications Heparin Sodium (Porcine) (Heparin Sodium,Porcine 5,000 Unit/Ml Vial) 5,000 unit SUBCUT Q8H [facility] Last Admin: 08/23/24 18:45 Dose: 5,000 unit Piperacillin Sod/Tazobactam (Sod 4.5 gm/ Sodium Chloride) 100 mls @ 200 mls/hr IV Q12H [facility] Last Infusion: 08/23/24 19:30 Dose: Infused Vancomycin HCl 500 mg/ Sodium (Chloride) 110 mls @ 110 mls/hr IV Q48H [facility] Lactulose (Lactulose 20 Gm/30 Ml Solution) 30 gm PO BID [facility] Last Admin: 08/23/24 20:01 Dose: Not Given Metoprolol Tartrate (Metoprolol Tartrate 12.5 Mg Halftab) 12.5 mg PO Q6H [facility]; Protocol Last Admin: 08/23/24 18:46 Dose: 12.5 mg Pharmacy Consult (Consult Rx Vancomycin Dosing) 1 each MISCELLANE DAILY PRN PRN Reason: Consult order Simethicone (Simethicone 80 Mg Tab.Chew) 80 mg PO QIDWMHS PRN PRN Reason: flatulence Last Admin: 08/19/24 09:53 Dose: 80 mg Sodium Chloride (0.9 % Sodium Chloride Flush 3 Ml Syringe) 3 ml IVFLUSH QSHIFT [facility] Last Admin: 08/23/24 18:46 Dose: 3 ml Home Medications ?Medication ?Instructions ?Recorded ?Confirmed ?Last Taken ?Type ascorbic acid (vitamin C) 1,000 mg 1,000 mg PO DAILY 04/02/20 08/18/24 01/24/23 History tablet bupropion HCl 300 mg 24 hr tablet, 300 mg PO DAILY 04/02/20 08/18/24 01/24/23 History extended release (Wellbutrin XL) cholecalciferol (vitamin D3) 50 50 mcg PO BID 04/02/20 08/18/24 01/24/23 History mcg (2,000 unit) capsule ferrous sulfate 325 mg (65 mg 325 mg PO BEDTIME 04/02/20 08/18/24 Unknown History iron) tablet (Feosol) multivitamin (Daily Multi-Vitamin 1 tab PO BEDTIME 04/02/20 08/18/24 01/24/23 History tablet) escitalopram oxalate 20 mg tablet 20 mg PO DAILY 07/30/20 08/18/24 01/24/23 History (Lexapro) bupropion HCl 150 mg 24 hr tablet, 150 mg PO DAILY 08/06/21 08/18/24 01/24/23 History extended release propranolol 60 mg capsule,24 60 mg PO BEDTIME 09/19/21 08/18/24 01/24/23 History hr,extended release lorazepam 0.5 mg tablet 0.5 mg PO DAILY PRN Anxiety 06/24/22 08/18/24 01/24/23 History aripiprazole 10 mg tablet 10 mg PO DAILY 12/17/22 08/18/24 01/24/23 History calcium 250 mg-magnesium 40 mg-D3 1 tab PO DAILY 01/18/23 08/18/24 01/24/23 History 125 unit-zinc 3.20aq-[id number]-vwhp tablet (Calcium Citrate Plus) ropinirole 0.25 mg tablet 0.25 mg PO BEDTIME 05/24/23 08/18/24 Unknown History primidone 50 mg tablet 50 mg PO BEDTIME 10/12/23 08/18/24 Unknown History alendronate 70 mg tablet (Fosamax) 70 mg PO [place] 08/17/24 08/18/24 Unknown History hydrochlorothiazide 25 mg tablet 25 mg PO DAILY 08/17/24 08/18/24 Unknown History omeprazole 40 mg capsule,delayed 40 mg PO DAILY@0630 08/17/24 08/18/24 Unknown History release sennosides 8.6 mg-docusate sodium 1 tab PO DAILY 08/17/24 08/18/24 Unknown History 50 mg tablet (Senexon-S) Physical Exam Vital Signs: Last Vital Signs Temp 97.6 F 08/23/24 19:53 Pulse 97 08/23/24 19:53 Resp 18 08/23/24 19:53 BP 109/55 L 08/23/24 19:53 Pulse Ox 96 08/23/24 19:53 O2 Del Method Room Air 08/23/24 19:53 O2 Flow Rate 1 08/22/24 06:00 BMI result Body Mass Index 36.9 Const General: no acute distress Orientation/consciousness: patient oriented x3 Eyes EOM: EOMs intact bilaterally Neck Neck: Yes supple Resp Auscultation: diminished lung sounds Cardio Rate: regular rate GI Palpation (GI): Soft to palpation Neuro General: patient oriented x3 Extrem General: Yes no pedal edema Results Lab Results 08/23/24 08:27 08/23/24 08:27 Lab results: Chemistry 08/21/24 08/22/24 08/23/24 04:53 04:45 08:27 Sodium 139 141 145 Potassium 3.4 3.5 3.9 Carbon Dioxide 22 21 L 24 BUN 110 H 116 H 107 H Creatinine 5.58 H* 5.59 H* 5.68 H* Calcium 8.4 8.1 L Phosphorus 3.5 3.7 08/23/24 08:27 Sodium Potassium Carbon Dioxide BUN Creatinine 5.62 H* Calcium 8.9 D Phosphorus Hematology 08/21/24 08/22/24 08/23/24 04:53 04:45 08:27 WBC 13.2 H 9.0 8.9 Hgb 11.0 L 9.2 L 10.5 L Plt Count 68 L 67 L 90 L D Assessment and Plan (1) ANIYA (acute kidney injury): Status: Acute Plan ANIYA due to compromise in renal perfusion with resultant tubular injury Clinical context does not support any reason to suspect GN- Ordered C3/C4 No hydronephrosis by imaging. Hemodynamics better/ stable; HCTZ on hold Blood chemistry/clinical exam does not give any indication for renal replacement No HD for now. C/W rest of current supportive care for now; Labs AM Procedures Date of Service Date of Service: 08/23/24
[2024-08-24] VITALS (7 sets, daily range): BP systolic 105–135; BP diastolic 56–67; PULSE 82–110; RESP 16–18; TEMP 36.2–36.8; O2SAT 96–99; BMI 36.7
[2024-08-24] MEDS: Heparin Sodium,Porcine 5,000 UNIT/ML VIAL 5000 UNIT SUBCUT ×2 (02:19→09:45)
[2024-08-24] MEDS: Piperacillin Sodium/Tazobactam 4.5 GM in 0.9 % Sodium Chloride 100 ML IV ×2 (05:40→17:28)
[2024-08-24] MEDS: Metoprolol Tartrate 12.5 MG HALFTAB PO ×3 (05:40→17:28)
[2024-08-24 06:39] LABS: Hematocrit 30.1 % (37.0-47.0); Hemoglobin 9.7 g/dl (12.0-16.0); Mean Corpuscular HGB Conc 32.2 g/dl (31.0-35.0); Mean Corpuscular Hemoglobin 31.6 pg (27.0-33.0); Mean Platelet Volume 9.7 fL (9.4-12.3); Platelet Count 109 X10*3/uL (160-400); Red Blood Count 3.07 X10*6/uL (4.20-5.50); Red Cell Distribution Width 14.1 % (11.0-16.0); White Blood Count 8.4 X10*3/uL (4.8-10.8)
[2024-08-24 07:04] LABS: Anion Gap 16 (12-20); Blood Urea Nitrogen 94 mg/dL (9-16); Calcium 8.6 mg/dL (8.4-10.2); Carbon Dioxide 24 mmol/L (22-29); Chloride 110 mmol/L (96-108); Creatinine Clr Calc Pharmacy 8.8; Estimated Glomerular Filt Rate 9; Glucose Random 105 mg/dL (60-115); Potassium 3.2 mmol/L (3.3-5.1); Sodium 147 mmol/L (135-145)
[2024-08-24 08:12] LABS: Vancomycin Random 13.9 mcg/mL (15-20)
[2024-08-24 08:26] LABS: Magnesium 2.2 mg/dL (1.6-2.6)
--- NOTE | 2024-08-24 08:38 | HE.PHANOTE ---
VANCO DOSE ADJUSTMENT BASED ON SCR AND TROUGH OF 13.9 500MG ONCE ORDERED. FOLLOW UP LEVEL 08/25 @ 0600.
--- NOTE | 2024-08-24 09:11 | P.PNNP_ITS ---
Subjective Subjective Date of Service: 08/24/24 Interval history: Events noted. Feels better. Daughter at bedside. Physical Exam 2 Vital Signs: Vital Signs: Last Vital Signs Temp 97.2 F 08/24/24 08:00 Pulse 98 08/24/24 08:00 Resp 18 08/24/24 08:00 BP 105/61 08/24/24 08:00 Pulse Ox 97 08/24/24 08:00 O2 Del Method Room Air 08/24/24 08:00 O2 Flow Rate 1 08/22/24 06:00 BMI result Body Mass Index 36.7 Awake. Comfortable. Neck is supple. Mucosa moist. Lungs bilateral scattered rhonchi. Heart S1-S2 heard no gallop. Abdomen soft. Extremities no edema. No involuntary movements. No myoclonus. Const: General: cooperative, healthy appearing, comfortable, no acute distress, alert and awake Nutritional Appearance: well nourished and obese Orientation/consciousness: patient oriented x3 HEENT: Head: Yes normocephalic and Yes atraumatic Ears: hearing grossly normal bilaterally Eyes: Sclerae: sclerae normal EOM: EOMs intact bilaterally Neck: Neck: Yes no lymphadenopathy, Yes trachea midline, Yes supple and Yes no JVD Resp: Effort & Inspection: normal respiratory effort, able to speak in complete sentences, no audible wheezes, no cough, decreased respiratory effort and no respiratory distress Auscultation: clear to auscultation bilaterally, no rales, no wheezes and diminished lung sounds Cardio: Jugular venous distension: no JVD Rate: regular rate and tachycardic Rhythm: regular rhythm and abnormal rhythm irregularly irregular Heart sounds: S1 normal heart sound present, S2 normal heart sound present, no click, no gallops, no murmurs and no rubs GI: Inspection: Yes normal to inspection Palpation (GI): Soft to palpation, nontender, no guarding and Other GI palpation findings present ( Nontender) Auscultation: normal bowel sounds Skin: Other: Warm, dry, no rash General skin exam: no rashes or lesions noted Neuro: General: patient oriented x3 and no focal motor deficits Extrem: Other: Open and draining right hip wound, clean dressings intact General: Yes no pedal edema, No clubbing and No cyanosis Objective Data Labs 08/24/24 06:18 08/24/24 06:18 Labs: Laboratory Results - last 24 hr 08/23/24 08/23/24 08/23/24 08:27 08:27 08:27 WBC RBC Hgb Hct MCV MCH MCHC RDW Plt Count MPV Absolute Nucleated RBC Nucleated RBC % (auto) Sodium 145 Potassium 3.9 Chloride 107 Carbon Dioxide 24 Anion Gap 18 BUN 107 H Creatinine 5.68 H* 5.62 H* Estim Creat Clear Calc 7.4 7.5 Estimated GFR 7 Random Glucose Calcium Magnesium Random Vancomycin 08/23/24 08/24/24 08:27 06:18 WBC 8.4 RBC 3.07 L Hgb 9.7 L Hct 30.1 L MCV 98.0 MCH 31.6 MCHC 32.2 RDW 14.1 Plt Count 109 L MPV 9.7 Absolute Nucleated RBC 0.000 Nucleated RBC % (auto) 0.0 Sodium 147 H Potassium 3.2 L Chloride 110 H Carbon Dioxide 24 Anion Gap 16 BUN 94 H Creatinine 4.75 H* Estim Creat Clear Calc 8.8 Estimated GFR 7 9 Random Glucose 98 105 Calcium 8.9 D 8.6 Magnesium 2.2 Random Vancomycin 13.9 L Microbiology Microbiology Results: Microbiology 08/17/24 15:09 Blood - Venous Blood Culture - Final No growth after 5 days. 08/17/24 14:50 Blood - Venous Blood Culture - Final No growth after 5 days. 08/18/24 Unknown Urine clean catch - Clean Catch Midstream Urine Culture - Final No growth. Procedures Date of Service Date of Service: 08/24/24 Assessment & Plan Assessment and plan (1) ANIYA (acute kidney injury): Status: Acute Plan ANIYA due to compromise in renal perfusion with resultant tubular injury Clinical context does not support any reason to suspect GN- Ordered C3/C4 No hydronephrosis by imaging. Hemodynamics better/ stable; HCTZ on hold Renal function is improving. No signs or symptoms of uremia. No indication for renal replacement Hypernatremia due to free water deficit Increase oral free water intake. Mild hypokalemia. Replace orally. Time Spent With Patient Time: Total time managing care of this patient today ____ minutes. Progress Note: Quality Stroke Does the patient have a stroke diagnosis?: No
[2024-08-24] MEDS: Lactulose 20 GM/30 ML SOLUTION 30 GM PO (09:22)
[2024-08-24] MEDS: 0.9 % Sodium Chloride Flush 3 ML SYRINGE IVFLUSH ×3 (09:23→19:50)
[2024-08-24] MEDS: Potassium Chloride ER 20 MEQ TAB.ER.PRT PO (09:23)
[2024-08-24] MEDS: vancomycin HCL 500 MG in 0.9 % Sodium Chloride 100 ML 110 MG IV (09:24)
--- NOTE | 2024-08-24 09:43 | PM.PNCARD ---
Subjective Subjective Date of Service: 08/24/24 Principal diagnosis: Atrial fibrillation Interval history: Patient's heart rate is borderline controlled but better. Denies any cardiac symptoms at this point time. Blood pressure is on the softer side. Denies shortness of breath or orthopnea. Review of Systems Constitutional: Reports no additional constitutional complaints Physical Exam Vital Signs: Last Vital Signs Temp 97.2 F 08/24/24 08:00 Pulse 98 08/24/24 08:00 Resp 18 08/24/24 08:00 BP 105/61 08/24/24 08:00 Pulse Ox 97 08/24/24 08:00 O2 Del Method Room Air 08/24/24 08:00 O2 Flow Rate 1 08/22/24 06:00 BMI result Body Mass Index 36.7 Const General: cooperative, comfortable, no acute distress, alert and awake Nutritional Appearance: obese Orientation/consciousness: patient oriented x3 HEENT Head: Yes normocephalic and Yes atraumatic Neck Neck: Yes trachea midline, Yes supple and Yes no JVD Resp Effort & Inspection: decreased respiratory effort Auscultation: no rales, no wheezes and diminished lung sounds Cardio Jugular venous distension: no JVD Rate: tachycardic Rhythm: abnormal rhythm irregularly irregular Heart sounds: S1 normal heart sound present, S2 normal heart sound present, no click, no gallops and no murmurs GI Auscultation: normal bowel sounds Skin General skin exam: no rashes or lesions noted Neuro General: patient oriented x3 and no focal motor deficits Objective Labs and Meds 08/24/24 06:18 08/24/24 06:18 Lab results: Laboratory Results - last 24 hr 08/23/24 08/23/24 08/23/24 08:27 08:27 08:27 WBC RBC Hgb Hct MCV MCH MCHC RDW Plt Count MPV Absolute Nucleated RBC Nucleated RBC % (auto) Sodium 145 Potassium 3.9 Chloride 107 Carbon Dioxide 24 Anion Gap 18 BUN 107 H Creatinine 5.68 H* 5.62 H* Estim Creat Clear Calc 7.4 7.5 Estimated GFR 7 Random Glucose Calcium Magnesium Random Vancomycin 08/23/24 08/24/24 08:27 06:18 WBC 8.4 RBC 3.07 L Hgb 9.7 L Hct 30.1 L MCV 98.0 MCH 31.6 MCHC 32.2 RDW 14.1 Plt Count 109 L MPV 9.7 Absolute Nucleated RBC 0.000 Nucleated RBC % (auto) 0.0 Sodium 147 H Potassium 3.2 L Chloride 110 H Carbon Dioxide 24 Anion Gap 16 BUN 94 H Creatinine 4.75 H* Estim Creat Clear Calc 8.8 Estimated GFR 7 9 Random Glucose 98 105 Calcium 8.9 D 8.6 Magnesium 2.2 Random Vancomycin 13.9 L Progress Note: A&P Assessment and plan (1) Atrial fibrillation: Status: Acute Assessment and Plan: Atrial fibrillation with better rate control though borderline blood pressure and can not maximize metoprolol therapy. Switch to 25 mg b.i.d.. Can not add digoxin due to renal insufficiency. LV systolic function appears normal. From cardiac perspective I would start her on oral anticoagulation warfarin given her advanced renal dysfunction for anticoagulation stroke reduction. Discussed with patient patient's daughter and they understand the rationale for choice of anticoagulant therapy. From cardiac perspective can be discharged and will follow-up as outpatient to discuss rhythm management after Holter monitor as outpatient. Will sign of the care. Thank you for allowing me to partake in her care Time Spent With Patient Time: Total time managing care of this patient today ____ minutes. Progress Note: Quality Stroke Does the patient have a stroke diagnosis?: No Procedures Date of Service Date of Service: 08/24/24
--- NOTE | 2024-08-24 12:49 | HO.PM.IMPN ---
Subjective Subjective Date of Service: 08/24/24 Interval History: feeling well SCr improving Review of Systems Review of Systems: Yes all other systems are reviewed and are negative Physical Exam Vital Signs: Vital Signs: Last Vital Signs Temp 98.2 F 08/24/24 11:38 Pulse 93 08/24/24 11:38 Resp 16 08/24/24 11:38 BP 108/56 L 08/24/24 11:38 Pulse Ox 97 08/24/24 11:38 O2 Del Method Room Air 08/24/24 11:38 O2 Flow Rate 1 08/22/24 06:00 BMI result Body Mass Index 36.7 Gen: in no acute distress HEENT: sclera anicteric, moist mucus membranes Neck: supple Lungs: clear to auscultation bilaterally Heart: irregular, no murmurs Abd: soft, non-tender, non-distended Ext: no edema, large open R hip wound Skin: warm/well-perfused Neuro: alert and oriented x3, no focal findings Psych: appropriate affect Objective Data Active Medications Apixaban (Apixaban 2.5 Mg Tablet) 2.5 mg PO BID [facility] Piperacillin Sod/Tazobactam (Sod 4.5 gm/ Sodium Chloride) 100 mls @ 200 mls/hr IV Q12H [facility] Last Infusion: 08/24/24 06:10 Dose: Infused Documented By: MOR Vancomycin HCl 500 mg/ Sodium (Chloride) 110 mls @ 110 mls/hr IV Q48H [facility] Lactulose (Lactulose 20 Gm/30 Ml Solution) 30 gm PO BID [facility] Last Admin: 08/24/24 09:22 Dose: 30 gm Documented By: OVIDIO Metoprolol Tartrate (Metoprolol Tartrate 12.5 Mg Halftab) 12.5 mg PO Q6H [facility]; Protocol Last Admin: 08/24/24 12:47 Dose: 12.5 mg Documented By: OVIDIO Pharmacy Consult (Consult Rx Vancomycin Dosing) 1 each MISCELLANE DAILY PRN PRN Reason: Consult order Simethicone (Simethicone 80 Mg Tab.Chew) 80 mg PO QIDWMHS PRN PRN Reason: flatulence Last Admin: 08/19/24 09:53 Dose: 80 mg Documented By: DAVID Sodium Chloride (0.9 % Sodium Chloride Flush 3 Ml Syringe) 3 ml IVFLUSH QSHIFT [facility] Last Admin: 08/24/24 09:23 Dose: 3 ml Documented By: OVIDIO Labs 08/24/24 06:18 08/24/24 06:18 Labs: Laboratory Results - last 24 hr 08/24/24 06:18 MCV 98.0 MCH 31.6 MCHC 32.2 RDW 14.1 Plt Count 109 L MPV 9.7 Absolute Nucleated RBC 0.000 Nucleated RBC % (auto) 0.0 Anion Gap 16 Estim Creat Clear Calc 8.8 Estimated GFR 9 Random Glucose 105 Calcium 8.6 Magnesium 2.2 Random Vancomycin 13.9 L Assessment and Plan (1) Septic shock: Status: Acute Assessment and Plan: d7 for 78yo F with COPD + PVD + hx total R hip arthoplasty [2015] with crhonic seroma admitted to ICU 08/17/24 with septic shock suspected due to infected wound of R hip, stepped down to IMC 08/22/24 septic shock due to wound infection - per Orthopedics, no joint infection - developed seroma in 2021 leading to surgical excision requiring multiple rounds of debridement and VAC placement - Gen Surg following; operative debridement and VAC on hold pending improvement in renal function; discussed with Dr Mosquera and he will arrange as outpatient next week; will consult Wound Care for wound care suggestions - continue vancomycin + piperacillin-tazobactam 08/22- - ID consultation - blood cultures negative - leukocytosis resolved new-onset AF - Cardiology consulted; TTE 08/23/24: 1. Normal LV ejection fraction of 65-70% 2. Severe biatrial enlargement 3. Severely dilated right ventricle with preserved contractility 4. Calcific aortic and mitral valve changes noted with normal cardiac valvular Dopplers 5. Normal RV systolic pressure 6. No gross pericardial - start anticoagulation with apixaban 2.5 mg bid; increase to 5 mg bid once CrCl >25 ANIYA due to ATN from septic shock - SCr improving, Nephrology following, no HD indicated, has good urine output, await renal recovery hyperNa, mild - encourage free water intake; recheck BMP in AM hypoK - replete PO, recheck BMP in AM SOULEYMANE - CPAP at night VTE ppx - apixaban dispo - eventual home with VNA In my clinical judgment, the patient requires continued inpatient hospitalization for the following reasons: IV ABX, renal failure, ID consultation Total time managing care of this patient today: 35 minutes. Quality Stroke Does the patient have a stroke diagnosis?: No VTE Prior VTE?: No VTE Risk Level:: Medical - moderate - high VTE Device Contraindication: Treatment Not Indicated VTE Drug Contraindication: N/A - Med Ordered
[2024-08-24] MEDS: Metoprolol Tartrate 25 MG TABLET PO (19:49)
[2024-08-24] MEDS: Apixaban 2.5 MG TABLET PO (19:49)
[2024-08-25] VITALS (9 sets, daily range): BP systolic 103–138; BP diastolic 54–68; PULSE 85–100; RESP 12–20; TEMP 36.4–37; O2SAT 95–98; BMI 36.8
--- NOTE | 2024-08-25 00:02 | P.CNID_ITS ---
History of Present Illness Data of Consult Service Date: 08/24/24 Requesting physician: Neha Zee Primary Care Provider: MD TARUN Valverde Reason for consult: right hip ulcer She presents with right hip ulcer for few weeks. She is immobile. Review of Systems 2 Review of Systems: Yes all other systems are reviewed and are negative PMFSH Past Medical History Medical History Peripheral vascular disease SOULEYMANE (obstructive sleep apnea) Wound, open, hip or thigh with complication Encounter for general adult medical examination with abnormal findings Hip pain, right Preoperative cardiovascular examination Change in bowel movement Traumatic seroma of right thigh Postprocedural seroma of skin and subcutaneous tissue following other procedure Open wound of right hip and thigh Right rib fracture Menopause Pain management Pain management contract agreement Open wound of right lower leg with complication Shortness of breath Cough Edema Influenza A H1N1 infection Hospital discharge follow-up Cellulitis of right leg Varicose veins of right lower extremity with inflammation Enterococcus faecalis infection Abscess Hip pain, right Obesity Lymphedema Morbid obesity due to excess calories Pre-op evaluation Colon cancer screening Medicare annual wellness visit, subsequent Family history of anesthesia complication Back pain Arthritis Renal calculi Post-influenza syndrome Tremor Peripheral vascular disease Right bundle branch block (RBBB) Aortic valve calcification Mitral annular calcification Nocturnal hypoxemia COPD (chronic obstructive pulmonary disease) Restrictive lung disease Stasis edema of both lower extremities Nail fungus Chronic GERD Depression, major, recurrent Hypertension, essential Family History Family History Father No problems noted. Mother Alzheimer's disease Maternal Grandmother Cancer Maternal Grandfather No problems noted. Paternal Grandfather No problems noted. Paternal Grandmother No problems noted. Maternal Aunt Cancer Sister Colon cancer Son No problems noted. Daughter No problems noted. Surgical History Surgical History History of excision of lesion (10/20/23) History of total hip arthroplasty S/P gastric bypass History of surgery on lower extremity (01/25/23) History of surgery H/O colonoscopy History of cataract extraction History of bilateral tubal ligation History of tonsillectomy Social History Social History Household Members: None Household Members Other:: daughter Housing: House Housing Other:: mobile home Are you a primary point of care technician to a significant other at home: No Do you presently have visiting nurse or other home services: No Alcohol intake: former Patient Tobacco Use Status: Former Tobacco user Tobacco use type: Cigarette Years Smoked: 40 Smoked in Last 30 Days: No e-Cigarette/Vaping Use: Currently Using Second Hand Smoke Exposure: No Use of substances other than those prescribed or required for medical reasons: No Currently Displaying Signs/Symptoms of Drug Intoxication Withdrawal: No Have you been hit, kicked, punched, or otherwise hurt by someone within the past year? If so, by whom?: No Advance Directives: Yes Advance Directives on File: Yes Advance Directives Date on File: 03/13/15 Recently lost weight without trying: No Nutrition Risks: Anorexia Patient : No service: No Current occupational status: retired and other Current occupation: right handed Cognitive needs: No Hearing needs: No Vision needs: No Meds Allergies Allergy/AdvReac Type Severity Reaction Status Date / Time sucralfate [Carafate] Allergy Intermediate hives Verified 08/17/24 14:34 NSAIDS (Non-Steroidal AdvReac Intermediate cannot Verified 08/17/24 14:34 Anti-Inflamma take due to gastric bypass history Active Medications: Current Medications Apixaban (Apixaban 2.5 Mg Tablet) 2.5 mg PO BID [facility] Last Admin: 08/24/24 19:49 Dose: 2.5 mg Piperacillin Sod/Tazobactam (Sod 4.5 gm/ Sodium Chloride) 100 mls @ 200 mls/hr IV Q12H [facility] Last Infusion: 08/24/24 18:28 Dose: Infused Vancomycin HCl 500 mg/ Sodium (Chloride) 110 mls @ 110 mls/hr IV Q48H [facility] Lactulose (Lactulose 20 Gm/30 Ml Solution) 30 gm PO BID [facility] Last Admin: 08/24/24 19:52 Dose: Not Given Metoprolol Tartrate (Metoprolol Tartrate 25 Mg Tablet) 25 mg PO Q12H [facility]; Protocol Last Admin: 08/24/24 19:49 Dose: 25 mg Pharmacy Consult (Consult Rx Vancomycin Dosing) 1 each MISCELLANE DAILY PRN PRN Reason: Consult order Simethicone (Simethicone 80 Mg Tab.Chew) 80 mg PO QIDWMHS PRN PRN Reason: flatulence Last Admin: 08/19/24 09:53 Dose: 80 mg Sodium Chloride (0.9 % Sodium Chloride Flush 3 Ml Syringe) 3 ml IVFLUSH QSHIFT [facility] Last Admin: 08/24/24 19:50 Dose: 3 ml Home Medications ?Medication ?Instructions ?Recorded ?Confirmed ?Last Taken ?Type ascorbic acid (vitamin C) 1,000 mg 1,000 mg PO DAILY 04/02/20 08/18/24 01/24/23 History tablet bupropion HCl 300 mg 24 hr tablet, 300 mg PO DAILY 04/02/20 08/18/24 01/24/23 History extended release (Wellbutrin XL) cholecalciferol (vitamin D3) 50 50 mcg PO BID 04/02/20 08/18/24 01/24/23 History mcg (2,000 unit) capsule ferrous sulfate 325 mg (65 mg 325 mg PO BEDTIME 04/02/20 08/18/24 Unknown History iron) tablet (Feosol) multivitamin (Daily Multi-Vitamin 1 tab PO BEDTIME 04/02/20 08/18/24 01/24/23 History tablet) escitalopram oxalate 20 mg tablet 20 mg PO DAILY 07/30/20 08/18/24 01/24/23 History (Lexapro) bupropion HCl 150 mg 24 hr tablet, 150 mg PO DAILY 08/06/21 08/18/24 01/24/23 History extended release propranolol 60 mg capsule,24 60 mg PO BEDTIME 09/19/21 08/18/24 01/24/23 History hr,extended release lorazepam 0.5 mg tablet 0.5 mg PO DAILY PRN Anxiety 06/24/22 08/18/24 01/24/23 History aripiprazole 10 mg tablet 10 mg PO DAILY 12/17/22 08/18/24 01/24/23 History calcium 250 mg-magnesium 40 mg-D3 1 tab PO DAILY 01/18/23 08/18/24 01/24/23 History 125 unit-zinc [id number] tablet (Calcium Citrate Plus) ropinirole 0.25 mg tablet 0.25 mg PO BEDTIME 05/24/23 08/18/24 Unknown History primidone 50 mg tablet 50 mg PO BEDTIME 10/12/23 08/18/24 Unknown History alendronate 70 mg tablet (Fosamax) 70 mg PO [place] 08/17/24 08/18/24 Unknown History hydrochlorothiazide 25 mg tablet 25 mg PO DAILY 08/17/24 08/18/24 Unknown History omeprazole 40 mg capsule,delayed 40 mg PO DAILY@0630 08/17/24 08/18/24 Unknown History release sennosides 8.6 mg-docusate sodium 1 tab PO DAILY 08/17/24 08/18/24 Unknown History 50 mg tablet (Senexon-S) Physical Exam 2 Vital Signs: Vital Signs: Last Vital Signs Temp 97.1 F 08/24/24 23:50 Pulse 110 H 08/24/24 23:50 Resp 2 L 08/24/24 23:50 BP 121/57 L 08/24/24 23:50 Pulse Ox 99 08/24/24 23:50 O2 Del Method Room Air 08/24/24 23:50 O2 Flow Rate 1 08/22/24 06:00 BMI result Body Mass Index 36.7 Const: General: cooperative HEENT: Head: Yes normal to inspection Face and sinus: Yes normal facial exam Mouth: Normal oral and palatal mucosa present Teeth and gingiva: d entition normal Eyes: General: appearance normal, both eyes and all related structures P upils: Equal, round and reactive pupils present Resp: Effort & Inspection: normal respiratory effort Cardio: Rate: regular rate Rhythm: regular rhythm GI: Palpation (GI): Soft to palpation and nontender : General: Yes no CVA tenderness Back/Spine/Pelvis: Other: packing clean right hip wound Back: no CVA tenderness Skin: General skin exam: no rashes or lesions noted Neuro: General: moves all extremities Cranial nerves: Yes Equal, round and reactive pupils present Extrem: General: Yes normal to inspection Psych: Appearance: grossly normal Results Labs 08/24/24 06:18 08/24/24 06:18 Labs: Short CBC 08/24/24 Range/Units 06:18 WBC 8.4 (4.8-10.8) X10*3/uL Hgb 9.7 L (12.0-16.0) g/dl Hct 30.1 L (37.0-47.0) % Plt Count 109 L (160-400) X10*3/uL BMP 08/24/24 06:18 Sodium 147 H Potassium 3.2 L Chloride 110 H Carbon Dioxide 24 BUN 94 H Creatinine 4.75 H* Calcium 8.6 Microbiology Microbiology Results: Microbiology 08/17/24 15:09 Blood - Venous Blood Culture - Final No growth after 5 days. 08/17/24 14:50 Blood - Venous Blood Culture - Final No growth after 5 days. 08/18/24 Unknown Urine clean catch - Clean Catch Midstream Urine Culture - Final No growth. Assessment and Plan (1) Peripheral vascular disease: Status: Acute (2) Sepsis: Status: Acute (3) Soft tissue infection: Status: Acute Plan Continue Vancomycin and Zosyn Can change to po Augmentin and Doxycycline after 3-5 days. Follow with Wound Care.
[2024-08-25] MEDS: Piperacillin Sodium/Tazobactam 4.5 GM in 0.9 % Sodium Chloride 100 ML IV ×2 (05:13→17:26)
[2024-08-25 06:40] LABS: Anion Gap 18 (12-20); Blood Urea Nitrogen 77 mg/dL (9-16); Calcium 8.5 mg/dL (8.4-10.2); Carbon Dioxide 22 mmol/L (22-29); Chloride 111 mmol/L (96-108); Creatinine Clr Calc Pharmacy 11.2; Estimated Glomerular Filt Rate 12; Glucose Random 91 mg/dL (60-115); Potassium 3.7 mmol/L (3.3-5.1); Sodium 147 mmol/L (135-145)
[2024-08-25 06:57] LABS: Vancomycin Random 15.4 mcg/mL (15-20)
--- NOTE | 2024-08-25 07:14 | HE.PHANOTE ---
RE: VANCO DOSING Trough came back as 15.4 mg/L, renal function is improving. Hold dose for today, next trough is scheduled for 08/26/24 @0600.
[2024-08-25] MEDS: Apixaban 2.5 MG TABLET PO ×2 (08:35→20:23)
[2024-08-25] MEDS: Metoprolol Tartrate 25 MG TABLET PO ×2 (08:35→20:23)
[2024-08-25] MEDS: 0.9 % Sodium Chloride Flush 3 ML SYRINGE IVFLUSH ×2 (09:04→20:25)
--- NOTE | 2024-08-25 10:17 | MHC.CM.PN ---
Per ROUNDS discussion, Patient is not yet medically cleared for dc (1 more day for renal recovery/wound vac as outpatient);PT rec home with services/ home resume [facility] is the plan and CM will continue to follow.
--- NOTE | 2024-08-25 11:29 | HO.PM.IMPN ---
Subjective Subjective Date of Service: 08/25/24 Interval History: Creatinine continues to improve; urinating well No fever Review of Systems Review of Systems: Yes all other systems are reviewed and are negative Physical Exam Vital Signs: Vital Signs: Last Vital Signs Temp 97.6 F 08/25/24 07:14 Pulse 94 08/25/24 10:58 Resp 18 08/25/24 07:14 BP 121/60 08/25/24 10:58 Pulse Ox 98 08/25/24 10:58 O2 Del Method Room Air 08/25/24 07:14 O2 Flow Rate 1 08/22/24 06:00 BMI result Body Mass Index 36.8 Gen: in no acute distress HEENT: sclera anicteric, moist mucus membranes Neck: supple Lungs: clear to auscultation bilaterally Heart: irregular, no murmurs Abd: soft, non-tender, non-distended Ext: no edema, open R hip wound without purulence Skin: warm/well-perfused Neuro: alert and oriented x3, no focal findings Psych: appropriate affect Objective Data Active Medications Apixaban (Apixaban 2.5 Mg Tablet) 2.5 mg PO BID [facility] Last Admin: 08/25/24 08:35 Dose: 2.5 mg Documented By: INDIRA Piperacillin Sod/Tazobactam (Sod 4.5 gm/ Sodium Chloride) 100 mls @ 200 mls/hr IV Q12H [facility] Last Infusion: 08/25/24 05:53 Dose: Infused Documented By: MARYSOL Vancomycin HCl 500 mg/ Sodium (Chloride) 110 mls @ 110 mls/hr IV Q48H [facility] Lactulose (Lactulose 20 Gm/30 Ml Solution) 30 gm PO BID [facility] Last Admin: 08/25/24 08:34 Dose: Not Given Documented By: INDIRA Non-Admin Reason: pt reports liquid BMs [id number] Metoprolol Tartrate (Metoprolol Tartrate 25 Mg Tablet) 25 mg PO Q12H [facility]; Protocol Last Admin: 08/25/24 08:35 Dose: 25 mg Documented By: INDIRA Pharmacy Consult (Consult Rx Vancomycin Dosing) 1 each MISCELLANE DAILY PRN PRN Reason: Consult order Simethicone (Simethicone 80 Mg Tab.Chew) 80 mg PO QIDWMHS PRN PRN Reason: flatulence Last Admin: 08/19/24 09:53 Dose: 80 mg Documented By: DAVID Sodium Chloride (0.9 % Sodium Chloride Flush 3 Ml Syringe) 3 ml IVFLUSH QSHIFT [facility] Last Admin: 08/25/24 09:04 Dose: 3 ml Documented By: FOSTEKR Labs 08/24/24 06:18 08/25/24 06:04 Labs: Laboratory Results - last 24 hr 08/25/24 06:04 Anion Gap 18 Estim Creat Clear Calc 11.2 Estimated GFR 12 Random Glucose 91 Calcium 8.5 Random Vancomycin 15.4 Assessment and Plan (1) Septic shock: Status: Acute Assessment and Plan: d8 for 78yo F with COPD + PVD + hx total R hip arthoplasty [2015] with crhonic seroma admitted to ICU 08/17/24 with septic shock suspected due to infected wound of R hip, stepped down to [facility] 08/22/24 septic shock due to wound infection - per Orthopedics, no joint infection - developed seroma in 2021 leading to surgical excision requiring multiple rounds of debridement and VAC placement - Gen Surg following; operative debridement and VAC on hold pending improvement in renal function; discussed with Dr Mosquera and he will arrange as outpatient next week - Wound Care consulted: Cleanse with NS, pat dry. Apply skin prep, lightly pack with saline moist packing gauze followed by dry gauze and ABD pad. Change daily. - continue vancomycin + piperacillin-tazobactam 08/22- - ID consulted; change to doxycycline + amoxicillin-clavulanate after a few days - blood cultures negative - leukocytosis resolved new-onset AF - Cardiology consulted; TTE 08/23/24: 1. Normal LV ejection fraction of 65-70% 2. Severe biatrial enlargement 3. Severely dilated right ventricle with preserved contractility 4. Calcific aortic and mitral valve changes noted with normal cardiac valvular Dopplers 5. Normal RV systolic pressure 6. No gross pericardial - started anticoagulation with apixaban 2.5 mg bid; increase to 5 mg bid once CrCl >25 - continue metoprolol tartate for rate control ANIYA due to ATN from septic shock - SCr continues to improve, Nephrology following, repeat BMP in AM hyperNa, mild - encourage free water intake; recheck BMP in AM hypoK - repleted SOULEYMANE - CPAP at night VTE ppx - apixaban dispo - eventual home with [facility]NA In my clinical judgment, the patient requires continued inpatient hospitalization for the following reasons: IV ABX, renal failure Total time managing care of this patient today: 35 minutes. Quality Stroke Does the patient have a stroke diagnosis?: No VTE Prior VTE?: No VTE Risk Level:: Medical - moderate - high VTE Device Contraindication: Treatment Not Indicated VTE Drug Contraindication: N/A - Med Ordered
--- NOTE | 2024-08-25 13:26 | MHC.CLN ---
F/U PT WITH INCREASED NUTRITION NEEDS R/T PRESSURE INJURY PO INTAKE 100% X6 MEALS DIET RX: 2GM NA DIET-APPROPRIATE RECEIVING ENSURE BID TO PROMOTE WOUND HEALING SUPP PROVIDES 700KCALS, 40G PROTEIN CONTINUE TO MONITOR PO INTAKE AND ENCOURAGE SUPPLEMENT
--- NOTE | 2024-08-25 21:30 | P.PNNP_ITS ---
Subjective Subjective Date of Service: 08/25/24 Principal diagnosis: Atrial fibrillation Interval history: Creatinine continues to improve; urinating well Physical Exam 2 Vital Signs: Vital Signs: Last Vital Signs Temp 98.6 F 08/25/24 20:00 Pulse 100 08/25/24 20:23 Resp 20 08/25/24 20:00 BP 138/60 08/25/24 20:23 Pulse Ox 95 08/25/24 20:00 O2 Del Method Room Air 08/25/24 20:00 O2 Flow Rate 1 08/22/24 06:00 BMI result Body Mass Index 36.8 Const: General: comfortable Orientation/consciousness: patient oriented x3 Eyes: EOM: EOMs intact bilaterally Neck: Neck: Yes supple Resp: Auscultation: diminished lung sounds Cardio: Rate: regular rate GI: Palpation (GI): Soft to palpation Neuro: General: patient oriented x3 Objective Data Labs 08/24/24 06:18 08/25/24 06:04 Labs: Laboratory Results - last 24 hr 08/25/24 06:04 Sodium 147 H Potassium 3.7 Chloride 111 H Carbon Dioxide 22 Anion Gap 18 BUN 77 H Creatinine 3.73 H Estim Creat Clear Calc 11.2 Estimated GFR 12 Random Glucose 91 Calcium 8.5 Random Vancomycin 15.4 Microbiology Microbiology Results: Microbiology 08/17/24 15:09 Blood - Venous Blood Culture - Final No growth after 5 days. 08/17/24 14:50 Blood - Venous Blood Culture - Final No growth after 5 days. 08/18/24 Unknown Urine clean catch - Clean Catch Midstream Urine Culture - Final No growth. Procedures Date of Service Date of Service: 08/25/24 Assessment & Plan Assessment and plan (1) ANIYA (acute kidney injury): Status: Acute Plan ANIYA due to compromise in renal perfusion with resultant tubular injury Clinical context does not support any reason to suspect GN No hydronephrosis by imaging. Hemodynamics better/ stable; HCTZ on hold Blood chemistry/clinical exam does not give any indication for renal replacement C/W rest of current supportive care for now; Labs AM Progress Note: Quality Stroke Does the patient have a stroke diagnosis?: No
[2024-08-26] VITALS (7 sets, daily range): BP systolic 104–131; BP diastolic 55–73; PULSE 92–105; RESP 16–18; TEMP 36.2–37.2; O2SAT 96–98; BMI 34.8
[2024-08-26] MEDS: Piperacillin Sodium/Tazobactam 4.5 GM in 0.9 % Sodium Chloride 100 ML IV ×2 (05:08→17:36)
[2024-08-26 06:38] LABS: Vancomycin Random 12.4 mcg/mL (15-20)
[2024-08-26 06:39] LABS: Anion Gap 17 (12-20); Blood Urea Nitrogen 59 mg/dL (9-16); Calcium 8.4 mg/dL (8.4-10.2); Carbon Dioxide 24 mmol/L (22-29); Chloride 111 mmol/L (96-108); Creatinine Clr Calc Pharmacy 12.9; Estimated Glomerular Filt Rate 14; Glucose Random 88 mg/dL (60-115); Potassium 3.8 mmol/L (3.3-5.1); Sodium 148 mmol/L (135-145)
[2024-08-26] MEDS: Apixaban 2.5 MG TABLET PO ×2 (08:33→21:04)
[2024-08-26] MEDS: vancomycin HCL 500 MG in 0.9 % Sodium Chloride 100 ML 110 MG IV (08:33)
[2024-08-26] MEDS: Metoprolol Tartrate 25 MG TABLET PO ×2 (08:33→21:04)
[2024-08-26] MEDS: Dextrose 5 % 1,000 ML 75 ML IVCONT ×2 (08:33→22:26)
--- NOTE | 2024-08-26 09:52 | P.PNIM_ITS ---
Subjective Subjective Date of Service: 08/26/24 Interval History: good appetite, urinating well, no complaints Review of Systems Review of Systems: Yes all other systems are reviewed and are negative Physical Exam 2 Vital Signs: Vital Signs: Last Vital Signs Temp 98.2 F 08/26/24 07:21 Pulse 92 08/26/24 07:21 Resp 18 08/26/24 07:21 BP 124/57 L 08/26/24 07:21 Pulse Ox 96 08/26/24 07:21 O2 Del Method Room Air 08/26/24 07:21 O2 Flow Rate 1 08/22/24 06:00 BMI result Body Mass Index 34.8 Gen: in no acute distress HEENT: sclera anicteric, moist mucus membranes Neck: supple Lungs: clear to auscultation bilaterally Heart: irregular, no murmurs Abd: soft, non-tender, non-distended Ext: no edema, open R hip wound without purulence Skin: warm/well-perfused Neuro: alert and oriented x3, no focal findings Psych: appropriate affect Objective Data Active Medications Apixaban (Apixaban 2.5 Mg Tablet) 2.5 mg PO BID [facility] Last Admin: 08/26/24 08:33 Dose: 2.5 mg Documented By: ISH Piperacillin Sod/Tazobactam (Sod 4.5 gm/ Sodium Chloride) 100 mls @ 200 mls/hr IV Q12H [facility] Last Infusion: 08/26/24 06:01 Dose: Infused Documented By: MARYSOL Vancomycin HCl 500 mg/ Sodium (Chloride) 110 mls @ 110 mls/hr IV Q48H [facility] Dextrose (D5w) 1,000 mls @ 75 mls/hr IVCONT .[id number] [facility] Stop: 08/27/24 10:24 Last Admin: 08/26/24 08:33 Dose: 75 mls/hr Documented By: ISH Lactulose (Lactulose 20 Gm/30 Ml Solution) 30 gm PO BID [facility] Last Admin: 08/26/24 08:34 Dose: Not Given Documented By: ISH Non-Admin Reason: Patient Refused Metoprolol Tartrate (Metoprolol Tartrate 25 Mg Tablet) 25 mg PO Q12H [facility]; Protocol Last Admin: 08/26/24 08:33 Dose: 25 mg Documented By: ISH Pharmacy Consult (Consult Rx Vancomycin Dosing) 1 each MISCELLANE DAILY PRN PRN Reason: Consult order Simethicone (Simethicone 80 Mg Tab.Chew) 80 mg PO QIDWMHS PRN PRN Reason: flatulence Last Admin: 08/19/24 09:53 Dose: 80 mg Documented By: DAVID Sodium Chloride (0.9 % Sodium Chloride Flush 3 Ml Syringe) 3 ml IVFLUSH QSHIFT [facility] Last Admin: 08/26/24 08:24 Dose: Not Given Documented By: ISH Non-Admin Reason: Previously Administered Labs 08/24/24 06:18 08/26/24 06:08 Labs: Laboratory Results - last 24 hr 08/26/24 06:08 Anion Gap 17 Estim Creat Clear Calc 12.9 Estimated GFR 14 Random Glucose 88 Calcium 8.4 Random Vancomycin 12.4 L Assessment and Plan (1) Septic shock: Status: Acute Assessment and Plan: d9 for 78yo F with COPD + PVD + hx total R hip arthoplasty [2015] with chronic seroma admitted to ICU 08/17/24 with septic shock suspected due to infected wound of R hip, stepped down to C 08/22/24 septic shock due to wound infection - per Orthopedics, no joint infection - developed seroma in 2021 leading to surgical excision requiring multiple rounds of debridement and VAC placement - Gen Surg following; operative debridement and VAC on hold pending improvement in renal function; discussed with Dr Mosquera and he will arrange as outpatient next week - Wound Care consulted: Right Hip - Cleanse with NS, pat dry. Apply skin prep, lightly pack with Durafiber AG (Hydrofiber / Alginate) be sure to leave a wick for easy and complete removal, followed by dry gauze and ABD pad. Change every other day. - continue vancomycin + piperacillin-tazobactam 08/22- - ID consulted; change to doxycycline + amoxicillin-clavulanate tomorrow - blood cultures negative - leukocytosis resolved new-onset AF - Cardiology consulted; TTE 08/23/24: 1. Normal LV ejection fraction of 65-70% 2. Severe biatrial enlargement 3. Severely dilated right ventricle with preserved contractility 4. Calcific aortic and mitral valve changes noted with normal cardiac valvular Dopplers 5. Normal RV systolic pressure 6. No gross pericardial - started anticoagulation with apixaban 2.5 mg bid; increase to 5 mg bid once CrCl >25 - continue metoprolol tartate for rate control ANIYA due to ATN from septic shock - SCr continues to improve, Nephrology following, repeat BMP in AM hyperNa - will replete 2L free water IV and recheck BMP in AM; encourage free water intake hypoK - repleted SOULEYMANE - CPAP at night VTE ppx - apixaban dispo - eventual home with VNA In my clinical judgment, the patient requires continued inpatient hospitalization for the following reasons: IV ABX, renal failure Total time managing care of this patient today: 35 minutes. Quality Stroke Does the patient have a stroke diagnosis?: No VTE Prior VTE?: No VTE Risk Level:: Medical - moderate - high VTE Device Contraindication: Treatment Not Indicated VTE Drug Contraindication: N/A - Med Ordered
--- NOTE | 2024-08-26 11:53 | PC.NURSE ---
report called to [facility], all questins answered, patient aware of transfer
[2024-08-26] MEDS: 0.9 % Sodium Chloride Flush 3 ML SYRINGE IVFLUSH ×2 (16:09→21:05)
--- NOTE | 2024-08-26 23:40 | PC.RT ---
pt did have her own cpap machine but to it home, She refuses to wear our machine, therefor order dc'd per policy
[2024-08-27 02:36] VITALS: BP 136/62; PULSE 100; RESP 20; TEMP 36.5; O2SAT 98
[2024-08-27] MEDS: Piperacillin Sodium/Tazobactam 4.5 GM in 0.9 % Sodium Chloride 100 ML IV (05:42)
[2024-08-27 06:00] VITALS: BMI 35.3
[2024-08-27 07:05] LABS: Vancomycin Random 13.6 mcg/mL (15-20)
[2024-08-27 07:11] LABS: Anion Gap 15 (12-20); Blood Urea Nitrogen 43 mg/dL (9-16); Carbon Dioxide 24 mmol/L (22-29); Chloride 109 mmol/L (96-108); Creatinine Clr Calc Pharmacy 17.9; Estimated Glomerular Filt Rate 21; Glucose Random 85 mg/dL (60-115); Potassium 3.1 mmol/L (3.3-5.1); Sodium 145 mmol/L (135-145)
--- NOTE | 2024-08-27 07:22 | HE.PHANOTE ---
Re: Richardson Renal function is beginning to improve. Trough returned at 13.6. Will dose patient a once time dose of 500mg now, pt may be able to tolerate 500mg q24h dosing with predicted AUC 415, predicted trough 14.7. Next trough 08/28 @ 0600 to determine if they can start a scheduled dose.
[2024-08-27 07:42] VITALS: BP 130/60; PULSE 97; RESP 18; TEMP 36.5; O2SAT 99
[2024-08-27] MEDS: Potassium Chloride ER 20 MEQ TAB.ER.PRT 40 MEQ PO (07:48)
[2024-08-27] MEDS: vancomycin HCL 500 MG in 0.9 % Sodium Chloride 100 ML 110 MG IV (07:48)
[2024-08-27] MEDS: Apixaban 2.5 MG TABLET PO (07:48)
[2024-08-27] MEDS: Metoprolol Tartrate 25 MG TABLET PO (07:48)
[2024-08-27] MEDS: 0.9 % Sodium Chloride Flush 3 ML SYRINGE IVFLUSH (07:49)
--- NOTE | 2024-08-27 09:55 | W.MHC.F2F ---
Service Date Service Date: 08/27/24 Encounter Date of encounter: 08/27/24 Reasons for Services Signs and symptoms assessed: Attach PT evaluations 08/23-08/25/24 Attach Wound notes 08/22-08/23/24 Reason for prison: wound care, medication management, medication treatment and teach disease management Reason for physical therapy: home safety and mobility, therapeutic exercises, gait/transfer training, assess need for DME, ADL training and energy conservation MD Overseeing Care: Kayla Smith Homebound: Leaving the home is medically contraindicated at this time without the asist of a device and/or another person due th the listed conditions above and below. Reason homebound: immunosuppression / infection risk and weakness related to hospital stay Certification: Based on the above findings, I certify that this patient is confined to the home and needs intermittent prison care, physical therapy and/or speech therapy, or continues to need occupational therapy. The patient is under my care, and I have initiated the establishment of the plan of care. The patient will be followed by a physician who will periodically review the plan of care. Time Spent With Patient Time: Total time managing care of this patient today ____ minutes.
--- NOTE | 2024-08-27 10:05 | P.DS_ITS ---
DS: Providers Provider Date of Service: 08/27/24 Date of admission: 08/17/24 17:44 Date of discharge: 08/27/24 Primary care physician: Kayla Smith MD Consults: 08/17/24 20:53 Consult to General Surgery Routine Consulting Provider: [facility] Reason for consultation: Right hip wound 08/17/24 22:09 Consult to Wound Care Routine Reason for consultation: goes to [facility] [place]- R buttock abscess 08/19/24 12:24 Consult to Orthopedics Routine Consulting Provider: [facility] Reason for consultation: ? osteomyelitis around hardware Has provider been notified: No 08/22/24 15:36 Consult to Nephrology Routine Consulting Provider: [facility] Reason for consultation: ANIYA 08/22/24 15:37 Consult to Cardiology Routine Consulting Provider: [facility] Reason for consultation: new afib/flutter 08/24/24 12:52 Consult to Wound Care Routine Reason for consultation: pt to go home with VNA; Dr Mosquera to do debridement/VAC as outpt next wee 08/24/24 12:55 Consult to Infectious Diseases Routine Consulting Provider: [facility] Reason for consultation: septic shock due to wound infection DS: Diagnosis Discharge Diagnosis (1) Septic shock: Status: Acute (2) Soft tissue infection: Status: Acute (3) Unspecified open wound, right hip, initial encounter: Status: Acute (4) ANIYA (acute kidney injury): Status: Acute (5) Atrial fibrillation: Status: Acute DS: Summary Hospital Course Hospital Course: From the history and physical by the admitting gravity prospecting observer Gregg Wallace NP, 08/17/24: The patient is a 78-year-old female with a past medical history of right hip wound ( s/p wound vac)? follows up with wound care x2 a week,? COPD, hypertension, mood disorder, chronic venous stasis dermatitis, lymphedema, peripheral vascular disease, SOU[place]E, and mood disorder who presented to emergency department? with weakness and confusion.? Patient reported on Wednesday,? she sustained a fall,? where she hit her head and since? she has been feeling weak, has had headaches and periods of confusion.? On arrival to emergency department patient?s blood pressure 60/31,? tachycardic to 115. Mentating properly.? ?Laboratory data was significant for? sodium 132, potassium 3.2, BUN 88, creatinine 4.79, lactic acid 2.2, ALT 114, alk phos 225, CK 171, total protein 5.8 albumin 2.9 IMAGING:? ?HEAD/CERVICAL SPINE CT:? no acute traumatic finding ?CHEST CT: no acute infectious process ?Abdominal CT/ US: ?? Cholecystitis,? but in the? abdominal ultrasound Gallbladder hydrops and cholelithiasis, with No evidence for acute c holecystitis. ED COURSE:? ?Patient received 3 L bolus, ceftriaxone 2 g, vancomycin 2g,? Zosyn 4.5, and started on phenylephrine drip. 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 She recovered and was stepped down to the telemetry unit on 08/22/24. Hospital course by problem: septic shock due to wound infection - per Orthopedic organizational effectiveness consultant, no joint infection - she had developed a seroma in 2021 leading to surgical excision requiring multiple rounds of debridement and VAC placement - Gen Surg consulted; operative debridement and VAC planned but placed on hold pending improvement in renal function; discussed with Dr Vini Mosquera and he will arrange as outpatient the week after discharge - Wound Care consulted: Right Hip - Cleanse with NS, pat dry. Apply skin prep, lightly pack with Durafiber AG (Hydrofiber / Alginate) be sure to leave a wick for easy and complete removal, followed by dry gauze and ABD pad. Change every other day. - treated with vancomycin + piperacillin-tazobactam and discharged on 1 week of doxycycline monohydrate plus amoxicillin-clavulanate in consultation with Infectious Disease - blood cultures negative - leukocytosis resolved new-onset atrial fibrillation - Cardiology consulted; TTE 08/23/24: 1. Normal LV ejection fraction of 65-70% 2. Severe biatrial enlargement 3. Severely dilated right ventricle with preserved contractility 4. Calcific aortic and mitral valve changes noted with normal cardiac valvular Dopplers 5. Normal RV systolic pressure 6. No gross pericardial - rate-controlled adequately with metoprolol tartrate and started on anticoagulation with apixaban 2.5 mg bid, increased to 5 mg bid on discharge anticipating further improvement in renal function - will need outpatient Cardiology follow-up in 3 weeks ANIYA due to ATN from septic shock - creatinine plateaued around 5.7 and improved to 2.3 on discharge - Nephrology consulted and no dialysis needed - to repeat BMP in 08/30/24 and follow up with [facility] in 2 weeks thrombocytopenia - due to sepsis; rey of 67; improved to 109 upon discharge She was discharged home with [facility] services for wound care and home PT Time Attestation Discharge Coordination Time (in mins): 45 Quality: Safe Use of Opioids Does Pt have an Active Cancer Diagnosis on the Problem List?: No Quality: Stroke Does the patient have a stroke diagnosis?: No Physical Exam Vital Signs: Vital Signs: Last Vital Signs Temp 97.7 F 08/27/24 07:42 Pulse 97 08/27/24 07:42 Resp 18 08/27/24 07:42 BP 130/60 08/27/24 07:42 Pulse Ox 99 08/27/24 07:42 O2 Del Method Room Air 08/27/24 07:42 O2 Flow Rate 1 08/22/24 06:00 BMI result Body Mass Index 35.3 Gen: in no acute distress HEENT: sclera anicteric, moist mucus membranes Neck: supple Lungs: clear to auscultation bilaterally Heart: irregular, no murmurs Abd: soft, non-tender, non-distended Ext: no edema, open R hip wound without purulence Skin: warm/well-perfused Neuro: alert and oriented x3, no focal findings Psych: appropriate affect DS: Data Data Completed and Pending Completed studies during hospitalization [Text1]: Laboratory Results WBC 8.4 X10*3/uL (4.8-10.8) 08/24/24 06:18 RBC 3.07 X10*6/uL (4.20-5.50) L 08/24/24 06:18 Hgb 9.7 g/dl (12.0-16.0) L 08/24/24 06:18 Hct 30.1 % (37.0-47.0) L 08/24/24 06:18 MCV 98.0 fL (80.0-98.0) 08/24/24 06:18 MCH 31.6 pg (27.0-33.0) 08/24/24 06:18 MCHC 32.2 g/dl (31.0-35.0) 08/24/24 06:18 RDW 14.1 % (11.0-16.0) 08/24/24 06:18 Plt Count 109 X10*3/uL (160-400) L 08/24/24 06:18 MPV 9.7 fL (9.4-12.3) 08/24/24 06:18 Immature Gran % (Auto) 3.9 % (0.0-0.4) H 08/22/24 04:45 Neut % (Auto) 57.8 % (45-73) 08/22/24 04:45 Lymph % (Auto) 26.6 % (20-40) 08/22/24 04:45 [place] % (Auto) 5.4 % (2-11) 08/22/24 04:45 Eos % (Auto) 5.7 % (0-4) H 08/22/24 04:45 Baso % (Auto) 0.6 % (0-2) 08/22/24 04:45 Lymph # (Auto) 2.4 X10*3/uL (1.2-4.9) 08/22/24 04:45 [place] # (Auto) 0.5 X10*3/uL (0.1-1.2) 08/22/24 04:45 Eos # (Auto) 0.5 X10*3/uL (0.0-0.4) H 08/22/24 04:45 Baso # (Auto) 0.1 X10*3/uL (0.0-0.2) 08/22/24 04:45 Abs Immat Gran (auto) 0.35 X10*3/uL (0.00-0.03) H 08/22/24 04:45 Absolute Neuts (auto) 5.2 x10*3/uL (2.0-8.3) 08/22/24 04:45 Absolute Nucleated RBC 0.000 X10*3/uL (0.0-0.012) 08/24/24 06:18 Nucleated RBC % (auto) 0.0 /100WBC (0.0-0.2) 08/24/24 06:18 Neutrophils % (Manual) 70 % (45-73) 08/20/24 04:42 Band Neutrophils % 3 % (3-5) 08/20/24 04:42 Lymphocytes % (Manual) 15 % (20-40) L 08/20/24 04:42 Atypical Lymphs % (Man) 1 % (0-6) 08/19/24 04:33 Monocytes % (Manual) 2 % (2-11) 08/20/24 04:42 Eosinophils % (Manual) 10 % (0-4) H 08/20/24 04:42 Metamyelocytes % 2 % 08/17/24 14:50 Abs Neuts (Manual) 12.9 X10*3/uL (2.0-8.3) H 08/20/24 04:42 Lymphocytes # (Manual) 2.7 X10*3/uL (1.2-4.9) 08/20/24 04:42 Atyp Lymphs # (Manual) 0.2 x10*3/uL 08/19/24 04:33 Monocytes # (Manual) 0.4 X10*3/uL (0.1-1.2) 08/20/24 04:42 Eosinophils # (Manual) 1.8 X10*3/uL (0.0-0.4) H 08/20/24 04:42 Metamyelocytes # 0.2 X10*3/uL 08/17/24 14:50 [place] Cells PRESENT 08/19/24 04:33 Toxic Granulation PRESENT 08/20/24 04:42 Toxic Vacuolation PRESENT 08/20/24 04:42 Dohle Bodies PRESENT 08/20/24 04:42 Platelet Estimate DECREASED (NORMAL) 08/20/24 04:42 Plt Morphology Comment NORMAL 08/20/24 04:42 RBC Morphology NOTED 08/20/24 04:42 Macrocytosis 1+ (5-14) /OIF 08/20/24 04:42 Ovalocytes 1+ (5-14) /OIF 08/20/24 04:42 [place] Cells 1+ (0-2) /OIF 08/20/24 04:42 Acanthocytes (Spur) 1+ (0-2) /OIF 08/20/24 04:42 Hold Purple Top SEE NOTE 08/23/24 06:08 VBG pH 7.30 (7.32-7.43) L 08/22/24 04:47 VBG pCO2 53 mmHg 08/22/24 04:47 VBG pO2 42 mmHg 08/22/24 04:47 VBG HCO3 26 mmol/L (22-26) 08/22/24 04:47 VBG O2 Saturation 75.0 % 08/22/24 04:47 VBG Base Excess -0.1 mmol/L 08/22/24 04:47 Sodium 145 mmol/L (135-145) 08/27/24 06:02 Potassium 3.1 mmol/L (3.3-5.1) L 08/27/24 06:02 Chloride 109 mmol/L (96-108) H 08/27/24 06:02 Carbon Dioxide 24 mmol/L (22-29) 08/27/24 06:02 Anion Gap 15 (12-20) 08/27/24 06:02 BUN 43 mg/dL (9-16) H 08/27/24 06:02 Creatinine 2.28 mg/dL (0.5-1.4) H 08/27/24 06:02 Estim Creat Clear Calc 17.9 08/27/24 06:02 Estimated GFR 21 08/27/24 06:02 Random Glucose 85 mg/dL (60-115) 08/27/24 06:02 Lactic Acid 2.2 mmol/L (0.5-2.0) H* 08/17/24 14:50 Lactic Acid F/U @ 2Hr 1.4 mmol/L (0.5-2.0) 08/17/24 18:45 Calcium 8.0 mg/dL (8.4-10.2) L 08/27/24 06:02 Phosphorus 3.7 mg/dL (2.7-4.5) 08/22/24 04:45 Magnesium 2.2 mg/dL (1.6-2.6) 08/24/24 06:18 Total Bilirubin 0.5 mg/dL (0.0-1.0) 08/22/24 04:45 Direct Bilirubin 0.5 mg/dL (0.0-0.5) 08/17/24 14:50 AST 9 U/L (5-31) 08/22/24 04:45 ALT 10 U/L (0-31) 08/22/24 04:45 Alkaline Phosphatase 104 U/L (39-117) 08/22/24 04:45 Total Creatine Kinase 228 U/L (26-140) H 08/18/24 04:43 Troponin I High Sens 16.9 ng/L (<3.5-17.0) D 08/17/24 14:50 Total Protein 4.9 g/dL (6.5-8.0) L 08/22/24 04:45 Albumin 3.0 g/dL (3.5-5.0) L 08/22/24 04:45 Urine Color Dark Yellow 08/18/24 05:12 Urine Appearance Turbid 08/18/24 05:12 Urine pH 5.0 (5.0-9.0) 08/18/24 05:12 Ur Specific [place] 1.025 (1.005-1.025) 08/18/24 05:12 Urine Protein 100 (2+) mg/dL (Neg-Trace) H 08/18/24 05:12 Urine Glucose (UA) Negative mg/dL (Negative) 08/18/24 05:12 Urine Ketones Trace mg/dL (Negative) 08/18/24 05:12 Urine Blood Moderate (2+) (Negative) H 08/18/24 05:12 Urine Nitrite Negative (Negative) 08/18/24 05:12 Ur Leukocyte Esterase Moderate (2+) (Negative) H 08/18/24 05:12 Urine RBC >20 /HPF (0-2) H 08/18/24 05:12 Urine WBC 21-50 /HPF (0-5) H 08/18/24 05:12 Ur Squamous Epith Cells 11-20 /HPF (0-2) 08/18/24 05:12 Urine Bacteria None Seen (None Seen) 08/18/24 05:12 Hyaline Casts >20 /LPF (0-2) 08/18/24 05:12 Granular Casts Present 08/18/24 05:12 Nasal Screen MRSA (PCR) NEGATIVE (Negative) 08/17/24 20:52 Nasal S. aureus Screen POSITIVE (Negative) A 08/17/24 20:52 Nasal MRSA/S.aureus Interp SEE NOTE 08/17/24 20:52 Stool Occult Blood NEGATIVE (NEGATIVE) 08/17/24 15:51 Random Vancomycin 13.6 mcg/mL (15-20) L 08/27/24 06:02 Ethyl Alcohol < 10 mg/dL 08/17/24 14:50 Influenza Type A (PCR) NEGATIVE (Negative) 08/17/24 15:09 Influenza Type B (PCR) NEGATIVE (Negative) 08/17/24 15:09 RSV RNA Qual (PCR) NEGATIVE (Negative) 08/17/24 15:09 SARS-CoV-2 RNA (RT-PCR) NEGATIVE (Negative) 08/17/24 15:09 Blood Type O Positive 08/17/24 15:51 Antibody Screen NEGATIVE 08/17/24 15:[address] 08/17/24 14:32 IMPRESSION: No acute intracranial abnormality. Chronic changes as discussed Electronically signed by: Stevo Em MD 08/17/2024 04:56 PM EDT RP Chest CT 08/17/24 15:35 IMPRESSION: 1. Cardiomegaly with mild pulmonary interstitial edema. 2. Linear atelectasis in the lingula, and in both lower lobes. 3. Enlargement of the main pulmonary artery suggesting increased pulmonary pressures. 4. There are a few scattered pulmonary micronodules measuring up to 5 mm. One-year follow-up recommended in a high-risk patient. 5. 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 6. Osteopenia with numerous likely chronic thoracic compression fractures. Vertebra plana deformity of T8. These appear to be present on prior chest x-ray 05/18/2023. Electronically signed by: Stevo Em MD 08/17/2024 04:32 PM EDT RP Cervical Spine CT 08/17/24 15:59 IMPRESSION: 1. Diffuse osteopenia/osteoporosis. 2. No acute fracture or traumatic malalignment. 3. Chronic appearing mild compression deformity superior endplate of T3. 4. Moderate degenerative spondylosis. 5. Findings suggesting mild interstitial pulmonary edema. Electronically signed by: Stevo Em MD 08/17/2024 05:04 PM EDT RP Abdomen/Pelvis CT 08/17/24 16:01 IMPRESSION: 1. Significant gallbladder distention/dilatation with gallstone within the gallbladder neck. Cannot exclude acute cholecystitis. No definite wall thickening or pericholecystic inflammation or fluid. 2. Prior gastric bypass surgery. No bowel obstruction. 3. A Benitez catheter is present within a collapsed urinary bladder. 4. Hepatomegaly. No suspicious lesion. 5. Mild anasarca. 6. Osteopenia with chronic compression fractures of the spine. 7. Ancillary findings as discussed. Electronically signed by: Stevo Em MD 08/17/2024 04:51 PM EDT Discharge Plan Discharge Anticipated Discharge Date/Time: 08/27/24 09:56 Patient Disposition: Home Health Service Discharge Diagnosis: septic shock wound infection atrial fibrillation acute kidney injury Referrals: Zeyad Ocampo MD [Physician] - 2 Weeks Kayla Smith MD [Primary Care Provider] - 1 Week Vini Mosquera MD [Physician] - 1 Week Edgar Payton MD [Physician] - 3 Weeks Discharge Medications: New metoprolol tartrate 25 mg Tablet 25 mg PO Q12H Qty: 60 0RF Protocol: Hold for SBP/HR < HOLD for SBP < : 90 HOLD for HR < : 60 doxycycline monohydrate 100 mg tablet 100 mg PO BID Qty: 14 0RF amoxicillin-pot clavulanate 875-125 mg tablet 1 tab PO BID Qty: 14 0RF Eliquis 5 mg tablet 5 mg PO BID Qty: 60 0RF Continued Motegrity 2 mg tablet 2 mg PO DAILY Qty: 90 3RF primidone 50 mg Tablet 50 mg PO BEDTIME Calcium Citrate Plus [id number] [id number]-mg Tablet 1 tab PO DAILY sennosides-docusate sodium [Senexon-S] 8.6-50 mg tablet 1 tab PO DAILY alendronate [Fosamax] 70 mg tablet 70 mg PO [place] omeprazole 40 mg capsule,delayed release(DR/EC) 40 mg PO DAILY@0630 Rx Instructions: open capsule and mix granules with apple sauce escitalopram oxalate [Lexapro] 20 mg tablet 20 mg PO DAILY bupropion HCl [Wellbutrin XL] 300 mg tablet extended release 24 hr 300 mg PO DAILY ascorbic acid (vitamin C) 1,000 mg tablet 1,000 mg PO DAILY cholecalciferol (vitamin D3) 50 mcg (2,000 unit) capsule 50 mcg PO BID ferrous sulfate [Feosol] 325 mg (65 mg iron) tablet 325 mg PO BEDTIME multivitamin [Daily Multi-Vitamin] Tablet 1 tab PO BEDTIME bupropion HCl 150 mg tablet extended release 24 hr 150 mg PO DAILY lorazepam 0.5 mg tablet 0.5 mg PO DAILY PRN (Reason: Anxiety) ropinirole 0.25 mg tablet 0.25 mg PO BEDTIME aripiprazole 10 mg tablet 10 mg PO DAILY (DME) 4x4 sterile gauze pads See Rx Instructions .Route .MEDSUPPLY Qty: 1 0RF Rx Instructions: As directed (DME) 2 inch cloth tape See Rx Instructions .Route .MEDSUPPLY Qty: 1 0RF Rx Instructions: As directed bisacodyl [Dulcolax (bisacodyl)] 5 mg tablet,delayed release (DR/EC) 10 mg PO BEDTIME 90 Days Qty: 180 0RF Discontinued hydrochlorothiazide 25 mg tablet 25 mg PO DAILY propranolol 60 mg capsule,extended release 24 hr 60 mg PO BEDTIME Discharge Orders: Discharge Order (Routine); Ordered 08/27/24 Ordered By: Neha Zee Diet: Low salt diet Activity on Discharge: As tolerated Stand Alone Forms: Patient Portal Discharge page Print Language: Frisian Other Ambulatory Orders: Basic Metabolic Panel (Routine) Timeframe: [id number] Facility: [facility] - Location: Laboratory Ordered By: Neha Zee Care Plan Goals: cure of wound and infection prevention of stroke kidney health Health Concerns: septic shock wound infection atrial fibrillation acute kidney injury Plan of Treatment: home with [facility]NA services/home PT take doxycycline monohydrate 100 mg twice daily PLUS amoxicillin-clavulanate 100 mg twice daily for 7 days Topical Wound Care Recommendations: Right Hip - Cleanse with NS, pat dry. Apply skin prep, lightly pack with Durafiber AG (Hydrofiber / Alginate) be sure to leave a wick for easy and complete removal, followed by dry gauze and ABD pad. Change every other day. Keep Follow up appointments as scheduled for proper wound care and healing. Specifically, follow up with Dr Vini Mosquera from [facility] [place] within 1 week. recheck labs [BMP, non-fasting] on Wednesday08/30/24 follow up with [facility] [place] [Dr Zeyad Pinedo] in 2 weeks stop hydrochlorothiazide and propranolol; instead, take metoprolol tartrate 25 mg twice daily for high blood pressure and for atrial fibrillation start apixaban [Eliquis] 5 mg twice daily to prevent strokes follow up with [facility] Cardiology [Dr Edgar Payton] in 3 weeks Please follow up with your primary care doctor within 1 week. Return to the hospital if you experience recurrent or worsening symptoms. Assessment: See Discharge Summary.
--- NOTE | 2024-08-27 10:20 | MHC.CM.PN ---
Patient medically cleared for dc home w/ resumption of [facility] services. Daughter will transport ~11am. RN aware. [facility]MM delivered.
== END 2024-08-27 10:48 | disposition home health service (06) | DRG 862 ==
LOC: HO.ED 17:07 → HO.EDOVER 18:16 → HO.ICU 18:20 → HO.IMC 08-22 15:52 → HO.S3 08-26 11:11
PROVIDERS: Internal Medicine Critical Care Medicine; Physician Assistant; Physician Assistant Medical; Registered Nurse Community Health; Admitting Provider Internal Medicine Pulmonary Disease; Emergency Provider Emergency Medicine Emergency Medical Services; PCP Internal Medicine; Visit Provider Family Medicine
DX: T81.42XA Infection following a procedure, deep incisional surgical site, initial encounter (principal); A41.9 Sepsis, unspecified organism; N17.0 Acute kidney failure with tubular necrosis; R65.21 Severe sepsis with septic shock; F33.9 Major depressive disorder, recurrent, unspecified; K82.1 Hydrops of gallbladder; E87.0 Hyperosmolality and hypernatremia; I48.0 Paroxysmal atrial fibrillation; D64.9 Anemia, unspecified; E87.6 Hypokalemia; I73.9 Peripheral vascular disease, unspecified; K80.20 Calculus of gallbladder without cholecystitis without obstruction; Y83.8 Other surgical procedures as the cause of abnormal reaction of the patient, or of later complication, without mention of misadventure at the time of the procedure; D69.59 Other secondary thrombocytopenia; J44.9 Chronic obstructive pulmonary disease, unspecified; G47.33 Obstructive sleep apnea (adult) (pediatric); Z20.822 Contact with and (suspected) exposure to COVID-19; Z79.899 Other long term (current) drug therapy
CPT/HCPCS: 0241U; 36415; 70450; 71045; 71250; 72125; 73700; 74176; 76705; 80048; 80053; 80076; 80202; 80307; 81001; 82272; 82550; 82565; 82803; 83605; 83735; 84100; 84484; 85007; 85025; 85027; 86850; 86900; 86901; 87040; 87086; 87640; 87641; 93005; 93306; 97161; 97530; 99285; J0613; J0696; J1644; J2250; J2270; J2371; J2543; J2760; J3370; J3473; P9047; Q9957

== ENCOUNTER → 2024-08-17 14:32 | Outpatient (BNV) | payer MEDICARE, MEDICAID, SELFPAY | PROVIDERS: Admitting Provider Internal Medicine Pulmonary Disease; Emergency Provider Emergency Medicine Emergency Medical Services; PCP Internal Medicine; Visit Provider Internal Medicine Cardiovascular Disease | DX: I48.91 Unspecified atrial fibrillation (principal); I45.10 Unspecified right bundle-branch block | CPT/HCPCS: 93010 ==

== ENCOUNTER → 2024-08-17 14:32 | Outpatient (BNV) | payer MEDICARE, MEDICAID, SELFPAY | PROVIDERS: Emergency Provider Emergency Medicine Emergency Medical Services; PCP Internal Medicine; Visit Provider Radiology Diagnostic Radiology | DX: N17.9 Acute kidney failure, unspecified (principal); R06.02 Shortness of breath; Z96.641 Presence of right artificial hip joint; M85.80 Other specified disorders of bone density and structure, unspecified site; M47.812 Spondylosis without myelopathy or radiculopathy, cervical region; R53.1 Weakness; R41.0 Disorientation, unspecified; R10.11 Right upper quadrant pain | CPT/HCPCS: 70450; 71250; 72125; 73700; 74176; 76705 ==

== ENCOUNTER 2024-08-17 17:44 | Outpatient (BNV) | payer MEDICARE, MEDICAID, SELFPAY | END 2024-08-19 12:30 | PROVIDERS: Admitting Provider Internal Medicine Pulmonary Disease; Emergency Provider Emergency Medicine Emergency Medical Services; PCP Internal Medicine; Visit Provider Radiology Diagnostic Radiology | DX: R06.89 Other abnormalities of breathing (principal) | CPT/HCPCS: 71045 ==

== ENCOUNTER 2024-08-17 17:44 | Outpatient (BNV) | payer MEDICARE, MEDICAID, SELFPAY | END 2024-08-23 08:12 | PROVIDERS: Admitting Provider Internal Medicine Pulmonary Disease; Emergency Provider Emergency Medicine Emergency Medical Services; PCP Internal Medicine; Visit Provider Internal Medicine Cardiovascular Disease | DX: I51.7 Cardiomegaly (principal); I36.1 Nonrheumatic tricuspid (valve) insufficiency; I35.8 Other nonrheumatic aortic valve disorders; I34.81 Nonrheumatic mitral (valve) annulus calcification | CPT/HCPCS: 93306 ==

== ENCOUNTER → 2024-08-17 17:44 | Outpatient (BNV) | payer MEDICARE, MEDICAID, SELFPAY | PROVIDERS: Admitting Provider Internal Medicine Pulmonary Disease; Emergency Provider Emergency Medicine Emergency Medical Services; PCP Internal Medicine; Visit Provider Surgery | DX: T81.89XA Other complications of procedures, not elsewhere classified, initial encounter (principal); S71.001A Unspecified open wound, right hip, initial encounter | CPT/HCPCS: 99222; 99232 ==

== ENCOUNTER → 2024-08-17 17:44 | Outpatient (BNV) | payer MEDICARE, MEDICAID, SELFPAY | PROVIDERS: Admitting Provider Internal Medicine Pulmonary Disease; Emergency Provider Emergency Medicine Emergency Medical Services; PCP Internal Medicine; Visit Provider Internal Medicine Pulmonary Disease | DX: A41.9 Sepsis, unspecified organism (principal); R65.21 Severe sepsis with septic shock; L08.9 Local infection of the skin and subcutaneous tissue, unspecified; N17.9 Acute kidney failure, unspecified | CPT/HCPCS: 36556; 99291 ==

== ENCOUNTER → 2024-08-17 17:44 | Outpatient (BNV) | payer MEDICARE, MEDICAID, SELFPAY | PROVIDERS: Admitting Provider Internal Medicine Pulmonary Disease; Emergency Provider Emergency Medicine Emergency Medical Services; PCP Internal Medicine; Visit Provider Nurse Practitioner Acute Care | DX: A41.9 Sepsis, unspecified organism (principal); R65.21 Severe sepsis with septic shock | CPT/HCPCS: 99232; 99239; 99499; G0180 ==

== ENCOUNTER → 2024-08-17 17:44 | Outpatient (BNV) | payer MEDICARE, MEDICAID, SELFPAY | PROVIDERS: Admitting Provider Internal Medicine Pulmonary Disease; Emergency Provider Emergency Medicine Emergency Medical Services; PCP Internal Medicine; Visit Provider Internal Medicine Nephrology | DX: N17.9 Acute kidney failure, unspecified (principal) | CPT/HCPCS: 99223 ==

== ENCOUNTER → 2024-08-17 17:44 | Outpatient (BNV) | payer MEDICARE, MEDICAID, SELFPAY | PROVIDERS: Admitting Provider Internal Medicine Pulmonary Disease; Emergency Provider Emergency Medicine Emergency Medical Services; PCP Internal Medicine; Visit Provider Internal Medicine Cardiovascular Disease | DX: I48.91 Unspecified atrial fibrillation (principal) | CPT/HCPCS: 99222 ==

== ENCOUNTER → 2024-08-17 17:44 | Outpatient (BNV) | payer MEDICARE, MEDICAID, SELFPAY | PROVIDERS: Admitting Provider Internal Medicine Pulmonary Disease; Emergency Provider Emergency Medicine Emergency Medical Services; PCP Internal Medicine; Visit Provider Physician Assistant | DX: L08.9 Local infection of the skin and subcutaneous tissue, unspecified (principal); Z96.641 Presence of right artificial hip joint | CPT/HCPCS: 99222 ==

== ENCOUNTER → 2024-08-17 17:44 | Outpatient (BNV) | payer MEDICARE, MEDICAID, SELFPAY | PROVIDERS: Admitting Provider Internal Medicine Pulmonary Disease; Emergency Provider Emergency Medicine Emergency Medical Services; PCP Internal Medicine; Visit Provider Registered Nurse Community Health | DX: F33.41 Major depressive disorder, recurrent, in partial remission (principal); I10 Essential (primary) hypertension; I95.9 Hypotension, unspecified; A41.9 Sepsis, unspecified organism; R65.21 Severe sepsis with septic shock; L08.9 Local infection of the skin and subcutaneous tissue, unspecified | CPT/HCPCS: 99291 ==

== ENCOUNTER → 2024-08-17 17:44 | Outpatient (BNV) | payer MEDICARE, MEDICAID, SELFPAY | PROVIDERS: Admitting Provider Internal Medicine Pulmonary Disease; Emergency Provider Emergency Medicine Emergency Medical Services; PCP Internal Medicine; Visit Provider Internal Medicine | DX: I73.9 Peripheral vascular disease, unspecified (principal); A41.9 Sepsis, unspecified organism; L08.9 Local infection of the skin and subcutaneous tissue, unspecified | CPT/HCPCS: 99222 ==

== ENCOUNTER 2024-08-30 09:19 | Outpatient (AMB) | payer MEDICARE, MEDICAID, SELFPAY ==
--- NOTE | 2024-08-30 09:28 | MHC.OFFVIS ---
Vital Signs 08/30/24 09:58 Height 4 ft 10 in Weight 166 lb BMI 34.7 BP 118/64 Blood Pressure Location Lt brachial Position Sitting Pulse 103 H Pulse Oximetry (%) 99 Oxygen Delivery Method Room Air Intake Visit Reasons: f/u Gerd/ CIC r/s 06/27/24 Intake Note: Patient follow up for GERD and CIC. Patient cc: always tired, constipation, denies any other GI issues for today visit. Sap Mobility Architect Required: No Accompanied by: Daughter Allergies sucralfate [Carafate] Allergy (Intermediate, Verified 08/30/24 09:43) hives NSAIDS (Non-Steroidal Anti-Inflamma Adverse Reaction (Intermediate, Verified 08/30/24 09:43) cannot take due to gastric bypass history HPI HPI f/u Gerd/ CIC r/s 06/27/24: Details: Assessment & Plan (1) Constipation: Code(s): K59.00 - Constipation, unspecified Category: Medical Qualifiers: Constipation type: slow transit constipation Qualified Code(s): K59.01 - Slow transit constipation (2) Oropharyngeal dysphagia: Code(s): R13.12 - Dysphagia, oropharyngeal phase Category: Medical (3) GERD with esophagitis: Code(s): K21.00 - Gastro-esophageal reflux disease with esophagitis, without bleeding Category: Medical Plan SHE TOLERATED THE PROCEDURE WELL and the upper dilation at least mildly improved her swallowing. Because of the esophagitis, although there was no dysplasia or metaplasia Has son has her opening capsules of omeprazole instead of taking pantoprazole. She did not have any trouble swallowing the pantoprazole but there was some thought that maybe her gastric bypass is interfering with absorption of the PPI. This is of course is fine. She continues to struggle with constipation. Her stools are mostly formed but she does have trouble evacuating when they are soft. This is why we went to Motegrity as I did not want to give her diarrhea. Ordinarily she utilizes senna with this but I think we need to progress to something stronger and I will try putting her on Dulcolax and will titrate this to affect her side effect. It is also possible that we should move on to something like Linzess, Amitiza, or Ibsrela. She did not have any response with Motegrity. Return office visit 8 weeks. Medications: New bisacodyl (Dulcolax (bisacodyl)) 10 mg (2 x 5 mg) PO BEDTIME 180 tabs 0RF 90 days Refilled omeprazole open capsule and mix granules with apple sauce 40 mg PO DAILY 90 caps 1RF sennosides-docusate sodium 8.6-50 mg (Senexon-S) 2 tabs PO BEDTIME PRN 180 tabs 0RF constipation Discontinued pantoprazole Discontinued Reason: Doctor's Order 40 mg PO QAM 30 tabs 6RF K21.9 - Gastro-esophageal reflux disease without esophagitis naloxegol (Movantik) must be taken on empty stomach; no food 1 hr after or 2-3 hrs before dose Discontinued Reason: Doctor's Order 25 mg PO QAM 30 tabs 0RF eks ago. She has procedure and follow up 04/28 CORRESPONDENCE On 07/07/24 @ 09:49 Snehal Merrill Wrote To Brown PA was submitted. However, per insurance the medication does not require a PA. The medication is covered. I will re-send script with no subs Snehal Merrill removed from item. On 07/07/24 @ 09:41 Elsy Agarwal Wrote To Stephanie (2) Gem, Patient called and stated that here insurance will only cover the brand name of this medication. They gave her a 30 day supply of the generic but told her only brand name is covered. Thanks prucalopride 2 mg tablet (Motegrity) - 2 mg PO DAILY 90 tabs 3RF Last Rx written: 03/13/24 Milo Brown TODAY'S VISIT She was hospitalized with severe sepsis secondary to a hip infection (this has occurred chronically r/t hip hardware)! When in the hospital they have her lactulose that worked well, but she prefers to stay on her motegrity and bisa for now. She is still fatigued and deconditioned. Her current GI regimen consists of omeprazole (she opens the capsule and put it on food) and Motegrity with the occasional use a bisacodyl for breakthrough constipation. ROV 6 mos. PFSH Medical History (Updated 08/30/24 @ 15:43 by DELORES Pérez) Hip pain, right Soft tissue infection Sepsis ANIYA (acute kidney injury) Septic shock Acute hypotension Oropharyngeal dysphagia Post-COVID chronic dyspnea Chronic GERD Peripheral vascular disease SOULEYMANE (obstructive sleep apnea) Wound, open, hip or thigh with complication Encounter for general adult medical examination with abnormal findings Preoperative cardiovascular examination Change in bowel movement Traumatic seroma of right thigh Postprocedural seroma of skin and subcutaneous tissue following other procedure Open wound of right hip and thigh Right rib fracture Menopause Pain management Pain management contract agreement Open wound of right lower leg with complication Shortness of breath Cough Edema Influenza A H1N1 infection Hospital discharge follow-up Cellulitis of right leg Varicose veins of right lower extremity with inflammation Enterococcus faecalis infection Abscess Hip pain, right Obesity Lymphedema Morbid obesity due to excess calories Pre-op evaluation Colon cancer screening Medicare annual wellness visit, subsequent Family history of anesthesia complication Back pain Arthritis Renal calculi Post-influenza syndrome Tremor Peripheral vascular disease Right bundle branch block (RBBB) Aortic valve calcification Mitral annular calcification Nocturnal hypoxemia COPD (chronic obstructive pulmonary disease) Restrictive lung disease Stasis edema of both lower extremities Nail fungus Depression, major, recurrent Hypertension, essential Surgical History (Updated 08/30/24 @ 15:43 by DELORES Pérez) S/P total right hip arthroplasty History of excision of lesion (10/20/23) History of total hip arthroplasty S/P gastric bypass History of surgery on lower extremity (01/25/23) History of surgery H/O colonoscopy History of cataract extraction History of bilateral tubal ligation History of tonsillectomy Family History Father No problems noted. Mother Alzheimer's disease Maternal Grandmother Cancer Maternal Grandfather No problems noted. Paternal Grandfather No problems noted. Paternal Grandmother No problems noted. Maternal Aunt Cancer Sister Colon cancer Son No problems noted. Daughter No problems noted. Social History Household Members: None Household Members Other:: daughter Housing: House Housing Other:: mobile home Are you a primary healthcare advisory services manager to a significant other at home: No Do you presently have visiting nurse or other home services: No Alcohol intake: former Patient Tobacco Use Status: Former Tobacco user Tobacco use type: Cigarette Years Smoked: 40 e-Cigarette/Vaping Use: Currently Using Second Hand Smoke Exposure: No Advance Directives Date on File: 03/13/15 service: No Current occupational status: retired and other Current occupation: right handed Cognitive needs: No Hearing needs: No Vision needs: No Female Reproductive History Menstrual Age of Menarche: 13 Review of Systems Const Reports fatigue, Denies fever(s), Reports lethargy, Denies night sweats, Denies poor appetite and Denies weight loss ENT Reports Normal hearing present, Denies dental pain, Denies dysphagia, Denies hearing loss, Denies mouth pain, Denies odynophagia, Denies throat swelling, Denies tongue swelling and Reports other (Dentition adequate) Card Reports no additional complaints and Reports dyspnea on exertion Resp Reports dyspnea on exertion GI Details: Denies abdominal pain, Denies melena, Denies bloating, Denies hematochezia, Reports constipation, Denies GI cramping, Denies dysphagia, Denies excessive flatus, Denies early satiety, Reports heartburn, Denies diarrhea, Denies nausea, Denies odynophagia, Denies vomiting and Denies hematemesis Musc Reports abnormal gait, Reports myalgias and Reports muscle weakness Skin/Breast Denies pruritus, Denies lesions, Denies rash, Reports skin ulcer and Denies jaundice Neuro Reports Normal hearing present, Denies Abnormal speech present and Reports abnormal gait Endo Reports fatigue Aller/Immun Denies throat swelling and Denies tongue swelling Physical Exam Vital Signs: Last Vital Signs Pulse 103 H 08/30/24 09:58 BP 118/64 08/30/24 09:58 Pulse Ox 99 08/30/24 09:58 Oxygen Delivery Method Room Air 08/30/24 09:58 BMI result Body Mass Index 34.7 Const General: cooperative, no acute distress, well developed and well groomed Nutritional Appearance: well nourished and obese Orientation/consciousness: oriented to person, oriented to place and oriented to time Limitations: No language barrier and ambulation with cane HEENT Head: Yes normocephalic and Yes atraumatic Eyes General: appearance normal, both eyes and all related structures Pupils: Equal, round and reactive pupils present Neck Neck: Yes normal visual inspection and Yes no lymphadenopathy Thyroid: Thyroid normal Resp Effort & Inspection: normal respiratory effort and able to speak in complete sentences Auscultation: clear to auscultation bilaterally Cardio Rate: regular rate Rhythm: regular rhythm Heart sounds: Normal, physiologic split S2 sound present Peripheral pulses: radial pulses present and posterior tibial pulses present GI Inspection: No distended, No Abdominal panniculus present and Yes obesity Palpation (GI): Soft to palpation, nontender, no guarding, not rigid and No hepatosplenomegaly present Percussion: Yes normal to percussion Auscultation: normal bowel sounds Rectal Exam - Female: deferred Skin General skin exam: no rashes or lesions noted, turgor normal, skin not dry, no jaundice, No spider nevi and no striae Rashes: no rashes Nails: normal Neuro General: oriented to person, oriented to place and oriented to time Cranial nerves: Yes Equal, round and reactive pupils present and Yes Normal hearing present Speech: No Abnormal speech present Extrem General: Yes normal to inspection, No clubbing, No cyanosis and No edema Psych Appearance: grossly normal and well kempt Mental Status: mental status grossly normal Speech and movement: Normal speech and movement present Affect: normal affect Attitude: cooperative Thought process: Normal thought process present and not confabulating Thought content: Normal thought content present Insight: Fair insight present (Psych) Judgement: Fair judgement present (Psych) Assessment & Plan Assessment & Plan (1) GERD with esophagitis: Code(s): K21.00 - Gastro-esophageal reflux disease with esophagitis, without bleeding Category: Medical (2) Constipation: Code(s): K59.00 - Constipation, unspecified Category: Medical Qualifiers: Constipation type: slow transit constipation Qualified Code(s): K59.01 - Slow transit constipation Plan She was hospitalized with severe sepsis secondary to a hip infection (this has occurred chronically r/t hip hardware)! When in the hospital they have her lactulose that worked well, but she prefers to stay on her motegrity and bisa for now. She is still fatigued and deconditioned. Her current GI regimen consists of omeprazole (she opens the capsule and put it on food) and Motegrity with the occasional use a bisacodyl for breakthrough constipation. ROV 6 mos. Medications: Changed From omeprazole open capsule and mix granules with apple sauce 40 mg PO DAILY@0630 To omeprazole open capsule and mix granules with apple sauce 40 mg PO DAILY@0630 90 days 90 caps 1RF Refilled Motegrity (prucalopride) 2 mg PO DAILY 90 tabs 3RF NS K59.00 - Constipation, unspecified bisacodyl (Dulcolax (bisacodyl)) 10 mg (2 x 5 mg) PO BEDTIME 90 days 180 tabs 0RF Coding Level of Care Code Est Pt Level 3 (78606) Diagnoses GERD with esophagitis K21.00 Slow transit constipation K59.01 Constipation type: slow transit constipation
[2024-08-30 09:58] VITALS: BP 118/64; PULSE 103; O2SAT 99; BMI 34.7
== END 2024-08-30 10:28 | disposition home or self-care (01) ==
LOC: HO.HGI 09:20
PROVIDERS: PCP Internal Medicine; Visit Provider Nurse Practitioner
DX: K21.00 Gastro-esophageal reflux disease with esophagitis, without bleeding (principal); K59.01 Slow transit constipation
CPT/HCPCS: 99213

== ENCOUNTER 2024-08-30 09:19 | Outpatient (REF) | payer MEDICARE, MEDICAID, SELFPAY ==
[2024-08-30 10:59] LABS: MANUAL DIFF FLAG NO
[2024-08-30 11:14] LABS: Basophils Absolute Auto 0.1 X10*3/uL (0.0-0.2); Basophils Percent Auto 1.2 % (0-2); Eosinophils Absolute Auto 0.2 X10*3/uL (0.0-0.4); Eosinophils Percent Auto 2.6 % (0-4); Hematocrit 29.8 % (37.0-47.0); Hemoglobin 9.4 g/dl (12.0-16.0); Imm Gran Abs Auto 0.03 X10*3/uL (0.00-0.03); Imm Gran Pct Auto 0.4 % (0.0-0.4); Lymphocytes Absolute Auto 1.6 X10*3/uL (1.2-4.9); Lymphocytes Percent Auto 22.6 % (20-40); Mean Corpuscular HGB Conc 31.5 g/dl (31.0-35.0); Mean Corpuscular Hemoglobin 31.2 pg (27.0-33.0); Mean Platelet Volume 9.6 fL (9.4-12.3); Monocytes Absolute Auto 0.5 X10*3/uL (0.1-1.2); Monocytes Percent Auto 7.7 % (2-11); Neutrophils Absolute Auto 4.5 x10*3/uL (2.0-8.3); Neutrophils Percent Auto 65.5 % (45-73); Platelet Count 245 X10*3/uL (160-400); Red Blood Count 3.01 X10*6/uL (4.20-5.50); White Blood Count 6.9 X10*3/uL (4.8-10.8)
[2024-08-30 11:57] LABS: Alanine Aminotransferase 13 U/L (0-31); Albumin Level 3.8 g/dL (3.5-5.0); Alkaline Phosphatase 98 U/L (39-117); Anion Gap 13 (12-20); Aspartate Amino Transferase 28 U/L (5-31); Bilirubin Total 0.4 mg/dL (0.0-1.0); Blood Urea Nitrogen 43 mg/dL (9-16); Calcium 8.6 mg/dL (8.4-10.2); Carbon Dioxide 20 mmol/L (22-29); Chloride 111 mmol/L (96-108); Estimated Glomerular Filt Rate 28; Glucose Random 93 mg/dL (60-115); Sodium 139 mmol/L (135-145); Total Protein 7.4 g/dL (6.5-8.0)
== END 2024-08-30 09:20 | disposition home or self-care (01) ==
LOC: HO.LAB 09:19
PROVIDERS: PCP Internal Medicine; Visit Provider Family Medicine
DX: Z00.01 Encounter for general adult medical examination with abnormal findings (principal); D49.2 Neoplasm of unspecified behavior of bone, soft tissue, and skin; E66.01 Morbid (severe) obesity due to excess calories; I10 Essential (primary) hypertension; F33.41 Major depressive disorder, recurrent, in partial remission; K21.00 Gastro-esophageal reflux disease with esophagitis, without bleeding; J43.8 Other emphysema; K59.01 Slow transit constipation; M25.551 Pain in right hip; Z96.641 Presence of right artificial hip joint; N17.9 Acute kidney failure, unspecified
CPT/HCPCS: 36415; 80053; 85025; 99212

== ENCOUNTER 2024-09-01 15:43 | Outpatient (AMB) | payer MEDICARE, MEDICAID, SELFPAY ==
--- NOTE | 2024-09-01 15:47 | HO.NEPHOV ---
Vital Signs 09/01/24 15:48 Height 4 ft 10 in Weight 163 lb 4 oz BMI 34.1 BP 115/62 Blood Pressure Location Lt brachial Position Sitting Pulse 100 Pulse Source Pulse Oximeter Pulse Oximetry (%) 96 Oxygen Delivery Method Room Air Intake Visit Reasons: [facility] [place] Administrative Assistant Required: No Accompanied by: Daughter Allergies sucralfate [Carafate] Allergy (Intermediate, Verified 09/01/24 15:51) hives NSAIDS (Non-Steroidal Anti-Inflamma Adverse Reaction (Intermediate, Verified 09/01/24 15:51) cannot take due to gastric bypass history Do you need a note to return to daycare/school/sports/work: No HPI Comments Details: 78-year-old female with H/O right hip wound who follows up with wound care twice a week, hypertension, peripheral vascular disease as well as CKD who recently presented to emergency department? with weakness and confusion.?In the ER, patient?s blood pressure was 60/31,? tachycardic to 115 but mentating properly.?Laboratory data was significant for? sodium 132, potassium 3.2, BUN 88, creatinine 4.79, lactic acid 2.2, ALT 114, alk phos 225, CK 171, total protein 5.8 albumin 2.9. Patient received 3 L bolus, ceftriaxone 2 g, vancomycin 2g,? Zosyn 4.5, and started on phenylephrine drip and was admitted to ICU briefly. She was thought to have septic shock due to wound infection. She was treated with vancomycin + piperacillin-tazobactam and discharged on 1 week of doxycycline monohydrate plus amoxicillin-clavulanate. Her ECHO showed normal LV ejection fraction of 65-70% with severe biatrial enlargement severe dilated right ventricle with preserved contractility . Her RV systolic pressure was normal. Her hear rate-controlled adequately with metoprolol tartrate and was started on anticoagulation with apixaban 5 mg bid. Her ANIYA was thought to be due to acute tubular injury from septic shock. Her serum creatinine plateaued around 5.7 and improved to 2.3 on discharge. She did not need any renal replacement during her hospital stay. Today she was seen in follow up. She feels improved and her serum creatinine now is 1.77(. She was accompanied by her daughter Tanvi). [facility] Medical History Hip pain, right Soft tissue infection Sepsis ANIYA (acute kidney injury) Septic shock Acute hypotension Oropharyngeal dysphagia Post-COVID chronic dyspnea Chronic GERD Peripheral vascular disease SOULEYMANE (obstructive sleep apnea) Wound, open, hip or thigh with complication Encounter for general adult medical examination with abnormal findings Preoperative cardiovascular examination Change in bowel movement Traumatic seroma of right thigh Postprocedural seroma of skin and subcutaneous tissue following other procedure Open wound of right hip and thigh Right rib fracture Menopause Pain management Pain management contract agreement Open wound of right lower leg with complication Shortness of breath Cough Edema Influenza A H1N1 infection Hospital discharge follow-up Cellulitis of right leg Varicose veins of right lower extremity with inflammation Enterococcus faecalis infection Abscess Hip pain, right Obesity Lymphedema Morbid obesity due to excess calories Pre-op evaluation Colon cancer screening Medicare annual wellness visit, subsequent Family history of anesthesia complication Back pain Arthritis Renal calculi Post-influenza syndrome Tremor Peripheral vascular disease Right bundle branch block (RBBB) Aortic valve calcification Mitral annular calcification Nocturnal hypoxemia COPD (chronic obstructive pulmonary disease) Restrictive lung disease Stasis edema of both lower extremities Nail fungus Depression, major, recurrent Hypertension, essential Surgical History S/P total right hip arthroplasty History of excision of lesion (10/20/23) History of total hip arthroplasty S/P gastric bypass History of surgery on lower extremity (01/25/23) History of surgery H/O colonoscopy History of cataract extraction History of bilateral tubal ligation History of tonsillectomy Family History Father No problems noted. Mother Alzheimer's disease Maternal Grandmother Cancer Maternal Grandfather No problems noted. Paternal Grandfather No problems noted. Paternal Grandmother No problems noted. Maternal Aunt Cancer Sister Colon cancer Son No problems noted. Daughter No problems noted. Social History Household Members: None Household Members Other:: daughter Housing: House Housing Other:: mobile home Are you a primary nurse behavioral health care to a significant other at home: No Do you presently have visiting nurse or other home services: No Alcohol intake: former Patient Tobacco Use Status: Former Tobacco user Tobacco use type: Cigarette Years Smoked: 40 e-Cigarette/Vaping Use: Currently Using Second Hand Smoke Exposure: No Advance Directives Date on File: 03/13/15 service: No Current occupational status: retired and other Current occupation: right handed Cognitive needs: No Hearing needs: No Vision needs: No Female Reproductive History Menstrual Age of Menarche: 13 Review of Systems Const All systems reviewed & are unremarkable except as noted in HPI and below Physical Exam Vital Signs: Last Vital Signs Pulse 100 09/01/24 15:48 BP 115/62 09/01/24 15:48 Pulse Ox 96 09/01/24 15:48 Oxygen Delivery Method Room Air 09/01/24 15:48 BMI result Body Mass Index 34.1 Const General: comfortable and no acute distress Orientation/consciousness: patient oriented x3 HEENT Head: Yes normocephalic Mouth: Normal oral and palatal mucosa present Eyes EOM: EOMs intact bilaterally Neck Neck: Yes supple Resp Auscultation: clear to auscultation bilaterally Cardio Jugular venous distension: no JVD Rate: regular rate GI Palpation (GI): Soft to palpation Auscultation: normal bowel sounds General: Yes no CVA tenderness Back/Spine/Pelvis Back: no CVA tenderness Skin General skin exam: no rashes or lesions noted Neuro General: patient oriented x3 and moves all extremities Results Reviewed Nephrology Results: Hgb 9.4 g/dl (12.0-16.0) L 08/30/24 WBC 6.9 X10*3/uL (4.8-10.8) 08/30/24 Plt Count 245 X10*3/uL (160-400) 08/30/24 Sodium 139 mmol/L (135-145) 08/30/24 Potassium 5.0 mmol/L (3.3-5.1) 08/30/24 Chloride 111 mmol/L (96-108) H 08/30/24 Carbon Dioxide 20 mmol/L (22-29) L 08/30/24 BUN 43 mg/dL (9-16) H 08/30/24 Creatinine 1.77 mg/dL (0.5-1.4) H 08/30/24 Calcium 8.6 mg/dL (8.4-10.2) 08/30/24 Assessment & Plan Assessment & Plan (1) Acute kidney injury superimposed on CKD: Code(s): N17.9 - Acute kidney failure, unspecified; N18.9 - Chronic kidney disease, unspecified Category: Medical Plan ANIYA due to compromise in renal perfusion with resultant tubular injury- resolved Clinical context does not support any reason to suspect GN during recent ANIYA No hydronephrosis by imaging. Hemodynamics better/ stable; Continue to hold HCTZ Did not need renal replacement during recent ANIYA. No NSAID's. Hemodynamics stable C/W current management for now; No medication changes made today;F/U labs ordered Answered all questions. F/U given Orders: Orders Calcium 3 Weeks N17.9 - Acute kidney failure, unspecified, N18.9 - Chronic kidney disease, unspecified Blood Urea Nitrogen 3 Weeks N17.9 - Acute kidney failure, unspecified, N18.9 - Chronic kidney disease, unspecified Complete Blood Count Auto Diff 3 Weeks N17.9 - Acute kidney failure, unspecified, N18.9 - Chronic kidney disease, unspecified Electrolytes 3 Weeks N17.9 - Acute kidney failure, unspecified, N18.9 - Chronic kidney disease, unspecified Creatinine 3 Weeks N17.9 - Acute kidney failure, unspecified, N18.9 - Chronic kidney disease, unspecified Ferritin 3 Weeks N17.9 - Acute kidney failure, unspecified, N18.9 - Chronic kidney disease, unspecified IRON PROFILE 3 Weeks N17.9 - Acute kidney failure, unspecified, N18.9 - Chronic kidney disease, unspecified Medications: Discontinued omeprazole open capsule and mix granules with apple sauce Discontinued Reason: Doctor's Order 40 mg PO DAILY@0630 90 days 90 caps 1RF Coding Level of Care Code Est Pt Level 4 (25713) Diagnoses Acute kidney injury superimposed on CKD N17.9; N18.9
[2024-09-01 15:48] VITALS: BP 115/62; PULSE 100; O2SAT 96; BMI 34.1
== END 2024-09-01 16:16 | disposition home or self-care (01) ==
LOC: HO.HKA 15:44
PROVIDERS: PCP Internal Medicine; Visit Provider Internal Medicine Nephrology
DX: N17.9 Acute kidney failure, unspecified (principal); N18.9 Chronic kidney disease, unspecified
CPT/HCPCS: 99214

== ENCOUNTER → 2024-09-01 15:43 | Outpatient (BNVA) | payer MEDICARE, MEDICAID, SELFPAY | PROVIDERS: PCP Internal Medicine; Visit Provider Internal Medicine Nephrology | DX: N17.9 Acute kidney failure, unspecified (principal); N18.9 Chronic kidney disease, unspecified | CPT/HCPCS: 99212 ==

== ENCOUNTER 2024-09-08 10:44 | Outpatient (AMB) | payer MEDICARE, MEDICAID, SELFPAY ==
[2024-09-08 10:47] VITALS: BP 108/68; PULSE 88; O2SAT 98; BMI 33.4
--- NOTE | 2024-09-08 10:47 | A.OFFPC_ITS ---
Vital Signs 09/08/24 10:47 Height 4 ft 10 in Weight 160 lb BMI 33.4 BP 108/68 Blood Pressure Location Lt brachial Position Sitting Pulse 88 Pulse Source Pulse Oximeter Pulse Oximetry (%) 98 Oxygen Delivery Method Room Air Intake Visit Reasons: TCM Tourist Adviser Required: No Accompanied by: Self / Same As Patient Allergies sucralfate [Carafate] Allergy (Intermediate, Verified 09/08/24 10:54) hives NSAIDS (Non-Steroidal Anti-Inflamma Adverse Reaction (Intermediate, Verified 09/08/24 10:54) cannot take due to gastric bypass history Medication List - Last Reconciled 09/08/24 by Kayla Smith MD alendronate (Fosamax) 70 mg PO [place] apixaban (Eliquis) 5 mg PO BID ascorbic acid (vitamin C) 250 mg PO DAILY bisacodyl (Dulcolax (bisacodyl)) 10 mg (2 x 5 mg) PO BEDTIME 90 days calcium ags-[id number]-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 250 mg-40 mg- 125 unit-3.75mg (Calcium Citrate Plus) 1 tab PO DAILY escitalopram oxalate (Lexapro) 20 mg PO DAILY ferrous sulfate (Feosol) 325 mg PO BEDTIME lorazepam 0.5 mg PO DAILY PRN metoprolol tartrate 25 mg See Protocol PO Q12H Motegrity (prucalopride) 2 mg PO DAILY NS multivitamin (Daily Multi-Vitamin tablet) 1 tab PO BEDTIME omeprazole 40 mg PO DAILY primidone 50 mg PO BEDTIME ropinirole 0.25 mg PO BEDTIME Tobacco use date assessed: 09/08/24 Fall risk assessment: No Falls in past year Last assessed Fall Risk: 09/08/24 Dental Screening Dental Screen Date: 09/08/24 Did you have a dental visit in the last 12 months?: Yes Did you have a dental problem in the last 6 months where you did not have access to dental care?: No Was dental information given to patient?: Patient has dentist HPI TCM HPI Details Patient is 78-year-old female with a past medical history of right hip wound status post wound VAC, follow-up with wound care 2 times a week, COPD, hypertension, mood disorder, chronic venous stasis dermatitis, lymphedema, peripheral vascular disease, obstructive sleep apnea, history of total right hip arthroplasty and chronic seroma presented to emergency room with the weakness and confusion on 17 of August, this year Patient reported that she sustained a fall and hit her head Wednesday before the arrival On arrival to emergency room her blood pressure was 60 by 31 she was tachycardic to 115 Electrolytes, sodium 132, potassium 3.2, BUN 88, creatinine was 4.79 with a lactic acid of 2.2 ALT 114 alkaline phosphatase 225 CPK 171 total protein 5.8 and albumin of 2.9 She was admitted She had a head and cervical spine CT scan which showed no acute traumatic finding CT scan of chest no acute infectious process CT scan of abdomen showed cholelithiasis but no evidence of cholecystitis She was given IV fluid, ceftriaxone 2 g, vancomycin 2 g Zosyn 4.5 and started on phenylephrine drip She was admitted in ICU secondary to diagnosis of septic shock due to infected wound of right hip On 08/22/2024 she was feeling better so was sent to step-down telemetry unit As per orthopedic technical solutions consultant there was no joint infection In 2021 she developed a seroma requiring surgical excision and multiple rounds of debridement and VAC placement Surgery was consulted and operative debridement and back bland but placed on hold pending improvement in renal function Dr. Mosquera was consulted and he recommended to proceed as an outpatient after discharge for that Wound care was consulted and right hip was cleansed with normal saline and dressing was applied She had full treatment with vancomycin plus depressed seen tazobactam and discharged on 1 week of doxycycline and Augmentin as per Infectious Disease consultation Her blood cultures remain negative and eventually leukocytosis resolved Patient had new onset atrial fibrillation She had echocardiogram done which showed normal LV ejection fraction of 65-70% Severe bilateral enlargement Severely dilated right ventricle with preserved contractility Calcific aortic and mitral valve changes with normal cardiac valvular Doppler Normal RV systolic function Her rate was controlled adequately with metoprolol and started on antico agulation with apixaban 2.5 mg b.i.d. which was eventually increased to 5 mg b.i.d. on discharge Patient was booked appointment with the Cardiology 3 week after discharge Her creatinine improved to 2.3 on discharge She did had Nephrology consultation in the hospital and then appointment as an outpatient Thrombocytopenia of 67 improved to 109 upon discharge Patient was discharged home with A services for wound care and home physical therapy Discharge date 08/27/2024 She came in today with her daughter Feeling better - Anemia: Lab results reveal a hemoglobi n level of 9.4 g/dL, and she is under close observation by hematology, though yet to have her appointment.. - Nausea: Experienced recurrent bouts, p ossibly related to medications associated with atrial fibrillation. - Hip Surgery: Ongoing recovery with phy sical therapy sessions twice weekly. Have regular visits by home healthcare nursing staff. Every other day for dressing change Hematology appointment coming up for anemia - Multi-Specialty Care: Coordination wit cardiology, nephrology, orthopedics, and hematology for ongoing management. Patient Instructions - Follow up with the scheduled appointme nts for cardiology, nephrology, orthopedics, and oncology. - Call Medicare for assistance with meal provision through the Meals on Wheels program and home health aid services. - Ensure blood work is performed before seeing the kidney specialist. - Contact Medicaid for home health aid i nitiation if necessary. - Continue fluid intake and monitor for any worsening of nausea. - Perform lab orders before the hematolo gy appointment scheduled on the . - Utilize available services for hospital for special surgery assistance with cleaning and meal preparation. Review of Systems - General: No fever no chills - Neurological: No headaches no dizziness - Ear nose throat: No sore throat no hearing difficulty no ear pain - Cardiovascular: No syncope, no chest pain, no palpitations - Gastrointestinal: No vomiting or diarrhea - Endocrine: No polyuria polydipsia no heat intolerance - Genitourinary: No dysuria , no blood in urine Physical Exam General: No acute distress HEENT: No acute findings Neck: Supple Respiratory system: Able to talk in full sentences, no audible wheeze Cardiovascular: S1-S2 irregularly irregular Gastrointestinal: Soft nontender Extremities: No new findings WEIGHT AND BALANCE CONTROL AGENT: Alert awake oriented x3 motor sensory intact Skin: Normal turgor TCM TCM Information Date of Discharge 08/27/24 Discharged From [facility] Interactive Contact Date (Reference documentation from this date) 08/29/24 HPI Comments History of Present Illness Details Date of admission/discharge: 08/17/2024 to 08/27/2024 Facility: [facility] Discharge 2/current location: home Diagnosis/procedure: Septic shock New/DC medications: Doxycycline and Augmentin Changed medication/dozing: Eliguis 5 mg bid started for A fib Pending labs/tests: New set of lab order placed Call to patient: Date/time 08/29/2024 at 16.2 Outcome : got in touch with patient How are you feeling? Much better Any pain or discomfort? Yes slight discomfort at the wound site right hip, nausea off and on Do you have any questions about your condition or discharge instructions? No Were you able to get her medications filled? Yes Do you have any questions about your medications? No Were you able to schedule your follow-up appointments? Yes If home health was ordered, have they contacted you? [facility] is coming over and we will initiate the home health aid process for meals and cleaning Any outpatient services, if so, are you scheduled? Yes Are there any additional resources like transportation you might need during your recovery? No Educational needs/resources: Provided What support system do you have[facility] ANIYA (acute kidney injury) Hospital discharge follow-up Hip pain, right Soft tissue infection Sepsis Septic shock Acute hypotension Oropharyngeal dysphagia Post-COVID chronic dyspnea Chronic GERD Peripheral vascular disease SOULEYMANE (obstructive sleep apnea) Wound, open, hip or thigh with complication Encounter for general adult medical examination with abnormal findings Preoperative cardiovascular examination Change in bowel movement Traumatic seroma of right thigh Postprocedural seroma of skin and subcutaneous tissue following other procedure Open wound of right hip and thigh Right rib fracture Menopause Pain management Pain management contract agreement Open wound of right lower leg with complication Shortness of breath Cough Edema Influenza A H1N1 infection Cellulitis of right leg Varicose veins of right lower extremity with inflammation Enterococcus faecalis infection Abscess Hip pain, right Obesity Lymphedema Morbid obesity due to excess calories Pre-op evaluation Colon cancer screening Medicare annual wellness visit, subsequent Family history of anesthesia complication Back pain Arthritis Renal calculi Post-influenza syndrome Tremor Peripheral vascular disease Right bundle branch block (RBBB) Aortic valve calcification Mitral annular calcification Nocturnal hypoxemia COPD (chronic obstructive pulmonary disease) Restrictive lung disease Stasis edema of both lower extremities Nail fungus Depression, major, recurrent Hypertension, essential Surgical History S/P total right hip arthroplasty History of excision of lesion (10/20/23) History of total hip arthroplasty S/P gastric bypass History of surgery on lower extremity (01/25/23) History of surgery H/O colonoscopy History of cataract extraction History of bilateral tubal ligation History of tonsillectomy Family History Father No problems noted. Mother Alzheimer's disease Maternal Grandmother Cancer Maternal Grandfather No problems noted. Paternal Grandfather No problems noted. Paternal Grandmother No problems noted. Maternal Aunt Cancer Sister Colon cancer Son No problems noted. Daughter No problems noted. Social History Household Members: None Household Members Other:: daughter Housing: House Housing Other:: mobile home Are you a primary career services coordinator to a significant other at home: No Do you presently have visiting nurse or other home services: No Alcohol intake: former Patient Tobacco Use Status: Former Tobacco user Tobacco use type: Cigarette Years Smoked: 40 e-Cigarette/Vaping Use: Currently Using Second Hand Smoke Exposure: No Advance Directives Date on File: 03/13/15 service: No Current occupational status: retired and other Current occupation: right handed Cognitive needs: No Hearing needs: No Vision needs: No Female Reproductive History Menstrual Age of Menarche: 13 Questionnaire PHQ-9 Over the last 2 weeks, how often have you been bothered by any of the following problems? 1. Little interest or pleasure in doing things: not at all 2. Feeling down, depressed, or hopeless: not at all 3. Trouble falling or staying asleep, or sleeping too much: more than half the days 4. Feeling tired or having little energy: several days 5. Poor appetite or overeating: several days 6. Feeling bad about yourself - or that you are a failure or have let yourself or your family down: not at all 7. Trouble concentrating on things, such as reading the newspaper or watching television: not at all 8. Moving or speaking so slowly that other people could have noticed. Or the opposite - being so fidgety or restless that you have been moving around a lot more than usual: not at all 9. Thoughts that you would be better off or of hurting yourself in some way: not at all Total score: 4 Depression Screening Interpretation: Negative Depression Screening Done: Yes 87266 - PHQ-9 Billing: Yes Source: Developed by Drs. Francisco Mendoza, Edyta Moctezuma, Kam Mills and colleagues, with an educational desi from [employer]. Thrive Questionnaire Date Thrive assessed: 09/08/24 I am a: Patient What is your living situation today?: I have a steady place to live Within the past 12 months, did the food you bought not last and you didn't have the money to get more?: Sometimes True Within the past 12 months, did you worry whether your food would run out before you got money to buy more?: Sometimes True Do you have trouble paying for medicines?: No Do you have trouble getting transportation to medical appointments?: No Do you have trouble paying your heating and electricity bill?: Yes Do you have trouble taking care of your child, family member or friend?: No Do you have trouble with day-to-day activities such as bathing, preparing meals, shopping, managing finances, etc.?: No Are you currently unemployed and looking for a job?: No Are you interested in more education?: No Please select the resources that you would like help with: None Currently or been in a relationship where the following occur: No concerns reported THRIVE Score: 3 AUDIT C Alcohol Use Questionnaire (AUDIT-C) 1. How often do you have a drink containing alcohol?: Never 3. How often do you have six or more drinks on one occasion?: Never Total Score: 0 Score Reviewed/Action Taken: Yes GERMÁN-7 AMB Questionnaire GERMÁN-7 Date GERMÁN - 7 assessed: 09/08/24 Feeling nervous, anxious, or on edge: 0 = Not at all Not being able to stop or control worryin = Not at all Worrying too much about different things: 0 = Not at all Trouble relaxin = Not at all Being so restless that it is hard to sit still: 0 = Not at all Becoming easily annoyed or irritable: 0 = Not at all Feeling afraid as if something awful might happen: 0 = Not at all Total GERMÁN-7 score (0-4 normal; 5-9 mild; 10-14 moderate; 15-21 severe): 0 Source: Developed by Drs. Francisco Mendoza, Edyta Moctezuma, Kam Mills and colleagues, with an educational desi from [employer]. GERMÁN-7 Assessment Billing GERMÁN-7 Assessment Tool: GERMÁN-7 Assessment 43662 Physical exam (Primary Care) Vital Signs: Last Vital Signs Pulse 88 09/08/24 10:47 BP 108/68 09/08/24 10:47 Pulse Ox 98 09/08/24 10:47 Oxygen Delivery Method Room Air 09/08/24 10:47 BMI result Body Mass Index 33.4 Tobacco/Smoking Status: Tobacco use Status Tobacco use date assessed 09/08/24 09/08/24 10:58 Patient Tobacco Use Status Former Tobacco user 09/08/24 10:49 Tobacco use type Cigarette 09/08/24 10:49 e-Cigarette/Vaping Use Currently Using 09/08/24 10:49 PHQ-9: PHQ-9 Score PHQ-9: Total score 4 09/08/24 11:00 Depression Screening Interpretation: Negative Thrive Assessment: Date of Thrive Assessment Date Thrive assessed 09/08/24 09/08/24 11:00 Currently or been in a relationship where the following occur: No concerns reported Coding Level of Care Code TCM High MDM <= 14 days Diagnoses Hospital discharge follow-up Z09 History of septic shock Z86.19 ANIYA (acute kidney injury) N17.9 New onset a-fib I48.91 Seroma of musculoskeletal structure after musculoskeletal system procedure M96.842 Chronic wound T14.8XXA Risk for falls Z91.81 Dependent for meal preparation Z74.1 Self-care deficit in patient living alone Z60.2 Additional Codes GERMÁN-7 Assessment Billing - GERMÁN-7 Assessment Tool: GERMÁN-7 Assessment 30085 ([id number]) PHQ-9 - 25196 - PHQ-9 Billing: Yes ([id number]) Assessment & Plan Assessment & Plan (1) Hospital discharge follow-up: Code(s): Z09 - Encounter for follow-up examination after completed treatment for conditions other than malignant neoplasm Category: Medical (2) History of septic shock: Code(s): Z86.19 - Personal history of other infectious and parasitic diseases Category: Medical (3) ANIYA (acute kidney injury): Code(s): N17.9 - Acute kidney failure, unspecified Category: Medical (4) New onset a-fib: Code(s): I48.91 - Unspecified atrial fibrillation Category: Medical (5) Seroma of musculoskeletal structure after musculoskeletal system procedure: Code(s): M96.842 - Postprocedural seroma of a musculoskeletal structure following a musculoskeletal system procedure Category: Medical (6) Chronic wound: Code(s): T14.8XXA - Other injury of unspecified body region, initial encounter Category: Medical (7) Risk for falls: Code(s): Z91.81 - History of falling Category: Medical (8) Dependent for meal preparation: Code(s): Z74.1 - Need for assistance with personal care Category: Medical (9) Self-care deficit in patient living alone: Code(s): Z60.2 - Problems related to living alone Category: Medical Plan Patient is 78-year-old female with a past medical history of right hip wound status post wound VAC, follow-up with wound care 2 times a week, COPD, hypertension, mood disorder, chronic venous stasis dermatitis, lymphedema, peripheral vascular disease, obstructive sleep apnea, history of total right hip arthroplasty and chronic seroma presented to emergency room with the weakness and confusion on 17 of August, this year Patient reported that she sustained a fall and hit her head Wednesday before the arrival On arrival to emergency room her blood pressure was 60 by 31 she was tachycardic to 115 Electrolytes, sodium 132, potassium 3.2, BUN 88, creatinine was 4.79 with a lactic acid of 2.2 ALT 114 alkaline phosphatase 225 CPK 171 total protein 5.8 and albumin of 2.9 She was admitted She had a head and cervical spine CT scan which showed no acute traumatic finding CT scan of chest no acute infectious process CT scan of abdomen showed cholelithiasis but no evidence of cholecystitis She was given IV fluid, ceftriaxone 2 g, vancomycin 2 g Zosyn 4.5 and started on phenylephrine drip She was admitted in ICU secondary to diagnosis of septic shock due to infected wound of right hip On 08/22/2024 she was feeling better so was sent to step-down telemetry unit As per orthopedic technical solutions consultant there was no joint infection In 2021 she developed a seroma requiring surgical excision and multiple rounds of debridement and VAC placement Surgery was consulted and operative debridement and back bland but placed on hold pending improvement in renal function Dr. Mosquera was consulted and he recommended to proceed as an outpatient after discharge for that Wound care was consulted and right hip was cleansed with normal saline and dressing was applied She had full treatment with vancomycin plus depressed seen tazobactam and discharged on 1 week of doxycycline and Augmentin as per Infectious Disease consultation Her blood cultures remain negative and eventually leukocytosis resolved Patient had new onset atrial fibrillation She had echocardiogram done which showed normal LV ejection fraction of 65-70% Severe bilateral enlargement Severely dilated right ventricle with preserved contractility Calcific aortic and mitral valve changes with normal cardiac valvular Doppler Normal RV systolic function Her rate was controlled adequately with metoprolol and started on anticoagulation with apixaban 2.5 mg b.i.d. which was eventually increased to 5 mg b.i.d. on discharge Patient was booked appointment with the Cardiology 3 week after discharge Her creatinine improved to 2.3 on discharge She did had Nephrology consultation in the hospital and then appointment as an outpatient Thrombocytopenia of 67 improved to 109 upon discharge Patient was discharged home with A services for wound care and home physical therapy Discharge date 08/27/2024 She came in today with her daughter Feeling better - Anemia: Lab results reveal a hemoglobin level of 9.4 g/dL, and she is under close observation by hematology, though yet to have her appointment.. - Nausea: Experienced recurrent bouts, possibly related to medications associated with atrial fibrillation. - Hip Surgery: Ongoing recovery with physical therapy sessions twice weekly. Have regular visits by home healthcare nursing staff. Every other day for dressing change Hematology appointment coming up for anemia - Multi-Specialty Care: Coordination with cardiology, nephrology, orthopedics, and hematology for ongoing management. Patient Instructions - Follow up with the scheduled appointments for cardiology, nephrology, orthopedics, and oncology. - Call Medicare for assistance with meal provision through the Meals on Wheels program and home health aid services. - Ensure blood work is performed before seeing the kidney specialist. - Contact Medicaid for home health aid initiation if necessary. - Continue fluid intake and monitor for any worsening of nausea. - Perform lab orders before the hematology appointment scheduled on the . - Utilize available services for household assistance with cleaning and meal preparation.
== END 2024-09-08 12:08 | disposition home or self-care (01) ==
LOC: HO.HMCC 10:45
PROVIDERS: PCP Internal Medicine; Visit Provider Internal Medicine
DX: I48.91 Unspecified atrial fibrillation (principal); Z09 Encounter for follow-up examination after completed treatment for conditions other than malignant neoplasm; Z86.19 Personal history of other infectious and parasitic diseases; N17.9 Acute kidney failure, unspecified; M96.842 Postprocedural seroma of a musculoskeletal structure following a musculoskeletal system procedure; T14.8XXA Other injury of unspecified body region, initial encounter; Z91.81 History of falling; Z74.1 Need for assistance with personal care; Z60.2 Problems related to living alone

== ENCOUNTER → 2024-09-08 10:44 | Outpatient (BNVA) | payer MEDICARE, MEDICAID, SELFPAY | PROVIDERS: PCP Internal Medicine; Visit Provider Internal Medicine | DX: Z09 Encounter for follow-up examination after completed treatment for conditions other than malignant neoplasm (principal); N17.9 Acute kidney failure, unspecified; I48.91 Unspecified atrial fibrillation; M96.842 Postprocedural seroma of a musculoskeletal structure following a musculoskeletal system procedure; T14.8XXA Other injury of unspecified body region, initial encounter; W57.XXXA Bitten or stung by nonvenomous insect and other nonvenomous arthropods, initial encounter; Z60.2 Problems related to living alone; Z74.1 Need for assistance with personal care; Z86.19 Personal history of other infectious and parasitic diseases | CPT/HCPCS: 96127; 99495 ==

== ENCOUNTER 2024-09-11 10:43 | Outpatient (AMB) | payer MEDICARE, MEDICAID, SELFPAY ==
--- NOTE | 2024-09-11 10:49 | MHC.OFFVIS ---
Vital Signs 09/11/24 10:57 Height 4 ft 10 in Weight 161 lb 13.109 oz BMI 33.8 Intake Visit Reasons: fuv sepsis hip Intake Note: Patient is seen in office for follow up on right hip. Pt c/o: here to talk about the possibility of getting a wound vac place on the right hip, denies signs of infection, continued discharge VNA:08/23/24 wound center: 07/24/24 Patient Financial Rep Required: No Accompanied by: Family/Other Allergies sucralfate [Carafate] Allergy (Intermediate, Verified 09/11/24 10:58) hives NSAIDS (Non-Steroidal Anti-Inflamma Adverse Reaction (Intermediate, Verified 09/11/24 10:58) cannot take due to gastric bypass history Medication List - Last Reconciled 09/11/24 by Vini Mosquera MD alendronate (Fosamax) 70 mg PO [place] apixaban (Eliquis) 5 mg PO BID ascorbic acid (vitamin C) 250 mg PO DAILY bisacodyl (Dulcolax (bisacodyl)) 10 mg (2 x 5 mg) PO BEDTIME 90 days calcium [id number]-lhr-T7-Zn-microscopist-fortino 250 mg-40 mg- 125 unit-3.75mg (Calcium Citrate Plus) 1 tab PO DAILY escitalopram oxalate (Lexapro) 20 mg PO DAILY ferrous sulfate (Feosol) 325 mg PO BEDTIME lorazepam 0.5 mg PO DAILY PRN metoprolol tartrate 25 mg See Protocol PO Q12H Motegrity (prucalopride) 2 mg PO DAILY NS multivitamin (Daily Multi-Vitamin tablet) 1 tab PO BEDTIME omeprazole 40 mg PO DAILY primidone 50 mg PO BEDTIME ropinirole 0.25 mg PO BEDTIME HPI Comments Details: Mrs. Rodriguez returns for wound check. She was recently hospitalized with sepsis and was treated with prolonged course of antibiotics. She now feels improved with no pain in the hip. She is being followed by wound care for the right hip wound. Silver alginate is being packed into the wound. She is undergoing workup for atrial fibrillation and she is awaiting a monitor next week. Her kidney function is gradually improving as well. She presents today to discuss possible wound debridement and wound VAC placement. [facility] Medical History ANIYA (acute kidney injury) Hospital discharge follow-up Hip pain, right Soft tissue infection Sepsis Septic shock Acute hypotension Oropharyngeal dysphagia Post-COVID chronic dyspnea Chronic GERD Peripheral vascular disease SOULEYMANE (obstructive sleep apnea) Wound, open, hip or thigh with complication Encounter for general adult medical examination with abnormal findings Preoperative cardiovascular examination Change in bowel movement Traumatic seroma of right thigh Postprocedural seroma of skin and subcutaneous tissue following other procedure Open wound of right hip and thigh Right rib fracture Menopause Pain management Pain management contract agreement Open wound of right lower leg with complication Shortness of breath Cough Edema Influenza A H1N1 infection Cellulitis of right leg Varicose veins of right lower extremity with inflammation Enterococcus faecalis infection Abscess Hip pain, right Obesity Lymphedema Morbid obesity due to excess calories Pre-op evaluation Colon cancer screening Medicare annual wellness visit, subsequent Family history of anesthesia complication Back pain Arthritis Renal calculi Post-influenza syndrome Tremor Peripheral vascular disease Right bundle branch block (RBBB) Aortic valve calcification Mitral annular calcification Nocturnal hypoxemia COPD (chronic obstructive pulmonary disease) Restrictive lung disease Stasis edema of both lower extremities Nail fungus Depression, major, recurrent Hypertension, essential Surgical History S/P total right hip arthroplasty History of excision of lesion (10/20/23) History of total hip arthroplasty S/P gastric bypass History of surgery on lower extremity (01/25/23) History of surgery H/O colonoscopy History of cataract extraction History of bilateral tubal ligation History of tonsillectomy Family History Father No problems noted. Mother Alzheimer's disease Maternal Grandmother Cancer Maternal Grandfather No problems noted. Paternal Grandfather No problems noted. Paternal Grandmother No problems noted. Maternal Aunt Cancer Sister Colon cancer Son No problems noted. Daughter No problems noted. Social History Household Members: None Household Members Other:: daughter Housing: House Housing Other:: mobile home Are you a primary healthcare applications analyst to a significant other at home: No Do you presently have visiting nurse or other home services: No Alcohol intake: former Patient Tobacco Use Status: Former Tobacco user Tobacco use type: Cigarette Years Smoked: 40 e-Cigarette/Vaping Use: Currently Using Second Hand Smoke Exposure: No Advance Directives Date on File: 03/13/15 service: No Current occupational status: retired and other Current occupation: right handed Cognitive needs: No Hearing needs: No Vision needs: No Female Reproductive History Menstrual Age of Menarche: 13 Review of Systems Const All systems reviewed & are unremarkable except as noted in HPI and below Physical Exam Vital Signs: BMI result Body Mass Index 33.8 Const General: no acute distress Nutritional Appearance: well nourished Orientation/consciousness: patient oriented x3 Resp Effort & Inspection: normal respiratory effort GI Inspection: Yes normal to inspection Palpation (GI): Soft to palpation Neuro General: patient oriented x3 Extrem Other: Right hip wound dressing changed. Wounds packed with silver alginate, left in place. Clean dressing applied below pink foam dressing. No erythema or skin necrosis identified. Upper/lower leg/hip images: 1. Site of wound right hip Assessment & Plan Assessment & Plan (1) Chronic wound: Code(s): T14.8XXA - Other injury of unspecified body region, initial encounter Category: Medical Plan 78-year-old female patient with a history of a chronic wound of the right hip, s/p multiple operative debridements with wound VAC placement now with a new persistent drainage site. She was recently hospitalized with sepsis but is now much improved. She also developed renal insufficiency and is currently being worked up for atrial fibrillation for which she is on apixaban. Wounds are reasonably stable and she [facility]. I recommended holding off on any surgical procedure at this time as long as the wounds are stable. She will continue to follow up with the [facility] and should follow up with our office as needed. She expressed understanding and agrees with the plan. Coding Level of Care Code Est Pt Level 3 (80683) Diagnoses Chronic wound T14.8XXA
[2024-09-11 10:57] VITALS: BMI 33.8
== END 2024-09-11 11:08 | disposition home or self-care (01) ==
LOC: HO.HGS 10:44
PROVIDERS: PCP Internal Medicine; Visit Provider Surgery
DX: S71.001A Unspecified open wound, right hip, initial encounter (principal)
CPT/HCPCS: 99213

== ENCOUNTER → 2024-09-11 10:43 | Outpatient (BNVA) | payer MEDICARE, MEDICAID, SELFPAY | PROVIDERS: PCP Internal Medicine; Visit Provider Surgery | DX: S71.001D Unspecified open wound, right hip, subsequent encounter (principal); X58.XXXD Exposure to other specified factors, subsequent encounter | CPT/HCPCS: 99212 ==

== ENCOUNTER → 2024-09-15 10:10 | Outpatient (BNV) | payer MEDICARE, MEDICAID, SELFPAY | PROVIDERS: PCP Internal Medicine; Referring Provider Internal Medicine; Visit Provider Nurse Practitioner Family | DX: D64.9 Anemia, unspecified (principal) | CPT/HCPCS: 99204 ==

== ENCOUNTER 2024-09-16 09:48 | Outpatient (AMB) | payer MEDICARE, MEDICAID, SELFPAY ==
[2024-09-16 11:03] VITALS: BP 112/70; PULSE 97; RESP 15; TEMP 36.7; O2SAT 96; BMI 33.1
--- NOTE | 2024-09-16 11:03 | AM.OFFWIN_ITS ---
Intake Vital Signs 09/16/24 11:03 Height 4 ft 11 in Weight 164 lb BMI 33.1 BP 112/70 Blood Pressure Location Lt brachial Position Sitting Respiration 15 Pulse 97 Pulse Source Pulse Oximeter Temp 98.0 F Temp Source Oral Pulse Oximetry (%) 96 Oxygen Delivery Method Room Air Intake Visit Reasons: EP-Stomach discomfort after Hosp discharge Intake Note: Pt is here today c/o nausea discomfort after being d/c from the hospital q7isorh ago Patient Tobacco Use Status: Former Tobacco user Allergies sucralfate [Carafate] Allergy (Intermediate, Verified 09/16/24 11:05) hives NSAIDS (Non-Steroidal Anti-Inflamma Adverse Reaction (Intermediate, Verified 09/16/24 11:05) cannot take due to gastric bypass history Medication List - Last Reconciled 09/16/24 by Quique Diaz MD alendronate (Fosamax) 70 mg PO [place] apixaban (Eliquis) 5 mg PO BID ascorbic acid (vitamin C) 250 mg PO DAILY bisacodyl (Dulcolax (bisacodyl)) 10 mg (2 x 5 mg) PO BEDTIME 90 days calcium zlv-kfz-V7-Zn-nuclear spectroscopist-fortino 250 mg-40 mg- 125 unit-3.75mg (Calcium Citrate Plus) 1 tab PO DAILY escitalopram oxalate (Lexapro) 20 mg PO DAILY ferrous sulfate (Feosol) 325 mg PO BEDTIME lorazepam 0.5 mg PO DAILY PRN metoprolol tartrate 25 mg See Protocol PO Q12H Motegrity (prucalopride) 2 mg PO DAILY NS multivitamin (Daily Multi-Vitamin tablet) 1 tab PO BEDTIME primidone 50 mg PO BEDTIME ropinirole 0.25 mg PO BEDTIME HPI EP-Stomach discomfort after Hosp discharge HPI Details Patient has ongoing nausea and some vomiting and difficulty keeping food down. Otherwise does not feel sick. She is drinking about 32-40 oz of water per day Passing gas and is passing bowel movements Denies abdominal pain [facility] Medical History ANIYA (acute kidney injury) Hospital discharge follow-up Hip pain, right Soft tissue infection Sepsis Septic shock Acute hypotension Oropharyngeal dysphagia Post-COVID chronic dyspnea Chronic GERD Peripheral vascular disease SOULEYMANE (obstructive sleep apnea) Wound, open, hip or thigh with complication Encounter for general adult medical examination with abnormal findings Preoperative cardiovascular examination Change in bowel movement Traumatic seroma of right thigh Postprocedural seroma of skin and subcutaneous tissue following other procedure Open wound of right hip and thigh Right rib fracture Menopause Pain management Pain management contract agreement Open wound of right lower leg with complication Shortness of breath Cough Edema Influenza A H1N1 infection Cellulitis of right leg Varicose veins of right lower extremity with inflammation Enterococcus faecalis infection Abscess Hip pain, right Obesity Lymphedema Morbid obesity due to excess calories Pre-op evaluation Colon cancer screening Medicare annual wellness visit, subsequent Family history of anesthesia complication Back pain Arthritis Renal calculi Post-influenza syndrome Tremor Peripheral vascular disease Right bundle branch block (RBBB) Aortic valve calcification Mitral annular calcification Nocturnal hypoxemia COPD (chronic obstructive pulmonary disease) Restrictive lung disease Stasis edema of both lower extremities Nail fungus Depression, major, recurrent Hypertension, essential Surgical History S/P total right hip arthroplasty History of excision of lesion (10/20/23) History of total hip arthroplasty S/P gastric bypass History of surgery on lower extremity (01/25/23) History of surgery H/O colonoscopy History of cataract extraction History of bilateral tubal ligation History of tonsillectomy Family History Father No problems noted. Mother Alzheimer's disease Maternal Grandmother Cancer Maternal Grandfather No problems noted. Paternal Grandfather No problems noted. Paternal Grandmother No problems noted. Maternal Aunt Cancer Sister Colon cancer Son No problems noted. Daughter No problems noted. Social History (Updated 09/15/24 @ 10:26 by Vanesa Benítez) Household Members: None Household Members Other:: daughter Housing: House Housing Other:: mobile home Are you a primary clinical care leader to a significant other at home: No Do you presently have visiting nurse or other home services: No Alcohol intake: former Patient Tobacco Use Status: Former Tobacco user Tobacco use type: Cigarette Years Smoked: 40 e-Cigarette/Vaping Use: Currently Using Second Hand Smoke Exposure: No Advance Directives Date on File: 03/13/15 service: No Current occupational status: retired and other Current occupation: right handed Cognitive needs: No Hearing needs: No Vision needs: No Female Reproductive History Menstrual Age of Menarche: 13 Review of Systems Const Denies chills, Denies fatigue, Denies fever(s), Denies headache(s) and Denies weakness ENT Denies dizziness and Denies headache(s) Card Denies chest pain, Denies lightheadedness, Denies dyspnea and Denies other (Palpitations) Resp Denies cough, Denies dyspnea, Denies wheezing and Denies other ( shortness of breath) GI Details: See HPI Details: No dysuria Musc Denies numbness and Denies tingling Neuro Denies dizziness, Denies headache(s), Denies numbness, Denies tingling, Denies paresthesias and Denies weakness Psych Denies anxiety and Denies depression Endo Denies fatigue Aller/Immun Denies wheezing Physical Exam Vital Signs: Last Vital Signs Temp 98.0 F 09/16/24 11:03 Pulse 97 09/16/24 11:03 Resp 15 09/16/24 11:03 BP 112/70 09/16/24 11:03 Pulse Ox 96 09/16/24 11:03 Oxygen Delivery Method Room Air 09/16/24 11:03 BMI result Body Mass Index 33.1 Const General: no acute distress and well developed Nutritional Appearance: well nourished Orientation/consciousness: patient oriented x3 HEENT Head: Yes normocephalic and Yes atraumatic Eyes General: appearance normal, both eyes and all related structures Pupils: Equal, round and reactive pupils present EOM: EOMs intact bilaterally Resp Effort & Inspection: normal respiratory effort Auscultation: clear to auscultation bilaterally Cardio Rate: regular rate Rhythm: abnormal rhythm (Irregularly irregular rhythm-baseline) Heart sounds: S1 normal heart sound present, S2 normal heart sound present, no gallops, no murmurs and no rubs Neuro General: patient oriented x3 and gait normal Cranial nerves: Yes Equal, round and reactive pupils present Psych Affect: normal affect Assessment & Plan Assessment & Plan (1) Nausea: Code(s): R11.0 - Nausea Plan: Nausea with some vomiting. Patient does not appear ill however. This is likely secondary to ongoing issues with constipation No abdominal tenderness though she does have mild distention Increase hydration Warm compresses on belly Can use some OTC anti-gas medication Will give her a short course of ondansetron Follow-up with PCP and your densitometer reader. Medications: New ondansetron 4 mg PO Q8H PRN 12 tabs 0RF nausea and vomiting 4 days Coding Level of Care Code Est Pt Level 3 (93184) Diagnoses Nausea R11.0
== END 2024-09-16 12:10 | disposition home or self-care (01) ==
LOC: HO.HMCWIC 09:48
PROVIDERS: PCP Internal Medicine; Visit Provider Family Medicine
DX: R11.0 Nausea (principal)

== ENCOUNTER → 2024-09-16 09:48 | Outpatient (BNVA) | payer MEDICARE, MEDICAID, SELFPAY | PROVIDERS: PCP Internal Medicine; Visit Provider Family Medicine | DX: R11.0 Nausea (principal) | CPT/HCPCS: 99212 ==

== ENCOUNTER 2024-09-20 07:01 | Outpatient (REF) | payer MEDICARE, MEDICAID, SELFPAY ==
[2024-09-20 07:19] LABS: MANUAL DIFF FLAG NO
[2024-09-20 07:45] LABS: Basophils Percent Auto 0.3 % (0-2); Eosinophils Absolute Auto 0.2 X10*3/uL (0.0-0.4); Eosinophils Percent Auto 2.8 % (0-4); Hematocrit 30.7 % (37.0-47.0); Hemoglobin 9.4 g/dl (12.0-16.0); Imm Gran Abs Auto 0.04 X10*3/uL (0.00-0.03); Imm Gran Pct Auto 0.7 % (0.0-0.4); Lymphocytes Absolute Auto 1.9 X10*3/uL (1.2-4.9); Lymphocytes Percent Auto 30.7 % (20-40); Mean Corpuscular HGB Conc 30.6 g/dl (31.0-35.0); Mean Corpuscular Hemoglobin 30.9 pg (27.0-33.0); Mean Platelet Volume 9.1 fL (9.4-12.3); Monocytes Absolute Auto 0.3 X10*3/uL (0.1-1.2); Monocytes Percent Auto 5.6 % (2-11); Neutrophils Absolute Auto 3.7 x10*3/uL (2.0-8.3); Neutrophils Percent Auto 59.9 % (45-73); Platelet Count 194 X10*3/uL (160-400); Red Blood Count 3.04 X10*6/uL (4.20-5.50); Red Cell Distribution Width 13.6 % (11.0-16.0); White Blood Count 6.1 X10*3/uL (4.8-10.8)
[2024-09-20 08:06] LABS: Anion Gap 14 (12-20); Blood Urea Nitrogen 19 mg/dL (9-16); Calcium 8.2 mg/dL (8.4-10.2); Carbon Dioxide 27 mmol/L (22-29); Chloride 105 mmol/L (96-108); Estimated Glomerular Filt Rate 50; Glucose Random 88 mg/dL (60-115); Iron 40 mcg/dL (30-160); Percent Iron Saturation 21 % (15-50); Potassium 4.7 mmol/L (3.3-5.1); Sodium 141 mmol/L (135-145); Total Iron Binding Capacity 193 mcg/dL (228-428); Unsaturated Iron Binding 153 ug/dL
[2024-09-20 08:07] LABS: Haptoglobin 173 mg/dL (63-273)
[2024-09-20 08:29] LABS: Ferritin 489 ng/mL (10-250)
== END 2024-09-20 07:02 | disposition home or self-care (01) ==
LOC: HO.LAB 07:01
PROVIDERS: Family Medicine; Nurse Practitioner Family; PCP Internal Medicine; Visit Provider Internal Medicine Nephrology
DX: N17.9 Acute kidney failure, unspecified (principal); N18.9 Chronic kidney disease, unspecified; D64.9 Anemia, unspecified
CPT/HCPCS: 36415; 80048; 82728; 83010; 83540; 85025

== ENCOUNTER 2024-09-22 13:29 | Outpatient (AMB) | payer MEDICARE, MEDICAID, SELFPAY ==
--- OUTSIDE RECORDS SUMMARY | 2024-09-22 13:33 | XMS_ITS | Data Portability ---
Author Organization [place] - [facility], [facility] Address [address] [place] [address] Care Team Providers Care Commissioning Specialist Name Role Phone STEPHANIE MARIE Primary Care Provider [phone] [facility] OTHER Assessment Encounter [...] going to be 10+ hours, this was [facility]. Exam: Vitals: VSS and afebrile Constitutional: 75 [...] scheduled Time On Scene with Patient: 00:42:25 [email or web address] Not available 05/07/2022 10:35:29 07/04/2022 07/04/2022 Brief [...] [facility] [email or web address] Not available 07/04/2022 12:44:13 10/06/2022 10/06/2022 Brief [...] to patient. All questions answered. wound care [phone] - wound care states that they have no apts sooner than but will place pt on cancellation list Not available 10/06/2022 12:38:07 Plan of Treatment Reminders Order Date Submit Date Provider Last Modified By Organization Details Last Modified Time Details Appointments None recorded. Lab rapid SARS CoV 2 Ag, QL IA, respiratory specimen 2022 023 [email or web address] 5 [facility], [address] [place] [address], [id number], 12:38:31 Referral None recorded. Procedures None recorded. Surgeries None recorded. Imaging XR, pelvis, 3 or more view - rule out osteomyelit is. tunneling wound over prosthetic hip joint [address] [address] [facility] [address] [facility] [address], [place], [address], 3 11:01:28 XR, chest, [address] [address], [place], [address], 2 11:58:06 Medication Orders doxycycline hyclate 100 mg capsule 2022 023 [id number], [address] [place], [address], 3 12:35:07 albuterol sulfate concentrate 2.5 mg/0.5 mL solution for nebulizatio n 2022 023 [email or web address] 5 [facility]/Pharmacy #0693, [address] [place], [address], 3 12:38:23 ipratropium bromide 0.02 % solution for inhalation 2022 023 [email or web address] 5 [facility]armacy #0693, [address] [place], [address], 3 12:38:34 prednisone 20 mg tablet 2022 023 [facility], [address] [place], [address], 3 12:02:14 prednisone 10 mg tablet 2022 023 maury [facility]armacy #0693, [address] [place], [address], 3 12:02:10 amoxicillin 875 mg-potassiu m clavulanate 125 mg tablet 2021 022 [email or web address] 5 [facility]armacy #0693, [address] [place], [address], 3 11:35:26 azithromyci n 250 mg tablet 2021 022 [email or web address] 5 [facility]/Pharmacy #0693, [address] [facility] [place], [address], 3 11:35:33 albuterol sulfate concentrate 2.5 mg/0.5 mL solution for nebulizatio n [address]/Pharmacy #0693, [address] [facility] [place], [address], 2 10:12:45 ipratropium bromide 0.02 % solution for inhalation [address]/Pharmacy #0693, [address] [facility] [place], [address], 2 10:12:42 nystatin 100,000 unit/gram topical cream [address]/Pharmacy #0693, [address] [facility] [place], [address], 2 09:43:56 cephalexin 500 mg capsule 2021 022 [email or web address] 5 [facility]armacy #0693, [address] [facility] [place], [address], 3 11:35:49 cephalexin 500 mg capsule 2021 022 [email or web address] 5 [facility]armacy #0693, [address] [facility] [place], [address], 3 11:35:49 Patient TargetsNo targets recorded. Patient Instructions Encounter Date Encounter Id Patient Instructions Last Modified By Organization Details Last Modified Time 01/03/2022 [id number] candidiasis: car e instructions [email or web address] Not available [...] pain. [email or web address] Not available 01/03/2022 13:03:10 05/07/2022 [id number] start mucinex as directed to help thin mucous drink plenty of fluids continue humidifier/steam rest continue albuterol inhaler four times per day for cough/breathing can use peppermints for cough can use honey for cough *[facility] will call to schedule chest xray. Should be complete within the next 24hrs *[facility] will follow up on Wednesday for recheck Please get to the ER if you are feeling worse [email or web address] Not available 05/07/2022 10:16:40 10/06/2022 [id number] Thank you for yo ur visit with [facility] today. You were seen today for [...] in your condition between 8am-10pm, please call [facility] at [phone] to help navigate your care. [email or web address] Not available 10/06/2022 12:03:22 Reason for Referral None Reported. Results Created Date Observation Date Name Description Value Unit Range Abnormal Flag Note LastModifiedBy Organization Detail LastModifiedTime 07/04/19 23 07/04/2022 rapid SARS CoV 2 Ag, QL IA, respi rator y speci men Covid-19 (ref: neg) negati ve Not Available [facility] - Home [address], [place], [address], 07/04/2022 11:44:48 07/04/19 23 07/04/2022 rapid SARS CoV 2 Ag, QL IA, respi rator y speci men Control Visual ized/V alid Not Available [facility] - Home [address], [place], [address], 07/04/2022 11:44:48 07/04/19 23 07/04/2022 rapid SARS CoV 2 Ag, QL IA, respi rator y speci men Location [facility], [facility] [employer], [address] [facility], [place] [address], [id number] Not Available [facility] - Home [address] [facility], [place], [address], 07/04/2022 11:44:48 05/08/20 22 05/08/2022 XR, chest [...] Leone M.D. 2021 11:53: 41 AM EST. [email or web address] [employer] [address] [facility] [address], [place], [address], 08/06/2022 12:49:04 10/08/19 23 10/07/2022 XR, pelvi [...] NGUYEN M.D. 023 10:47: 33 AM EDT. [email or web address] [employer] [address] [address], [place], [address], 10/07/2022 18:32:41 10/08/1910/07/2022 hip uni W or [...] NGUYEN M.D. 023 10:47: 33 AM EDT. [email or web address] [facility] [address] [facility] [address], [place], [address], 10/07/2022 18:32:16 Result Notes None recorded. Procedures Surgical History Date Name Laterality Status Provider Name and Address Organization Details Recorded Time 07/04/19 23 Nebulizer treatment - completed FADI Clemens [address] [place], [address], [place] [facility] 07/04/2022 12:38:06 05/07/20 22 Nebulizer treatment - DH completed FADI NASCIMENTO [address], [place], [address], [place] [facility] 05/07/2022 10:29:59 total replacement of right hip joint completed FADI Young [address], [place], [address], [place] [facility] 10/04/2021 10:27:45 Gastric bypass for obesity completed FADI Young [address], [place], [address], [place] [facility] 10/04/2021 10:28:00 bilateral extraction of cataracts completed FADI Young [address], [place], [address], [place] [facility] 10/04/2021 10:28:07 biopsy of breast completed FADI Young [address], [place], [address], [place] [facility] 10/04/2021 10:28:14 tonsilectomy/a denoids completed FADI Young [address], [place], [address], [place] [facility] 10/04/2021 10:29:26 Imaging Results Imaging Date Name Status LastModified by Organiz ation Details LastModified Time 05/08/2022 XR, chest, 2 view completed [employer] [address] [facility] [employer] [address], [place], [address], 08/06/2022 12:49:04 10/07/2022 XR, pelvis, 3 or more view completed [employer] [address], [place], [address], 10/07/2022 18:32:41 10/07/2022 hip uni W or w/o pelvis 1 view completed [employer] [address], [place], [address], 10/07/2022 18:32:16 Procedure Notes None recorded. Medical Equipment None Reported. Allergies Allergen ID Allergen Name Allergen Category Reaction Reaction Severity Criticality Documentation Date Start Date Code Code System Note Provider Name and Address Organization Details Recorded Time 067062 Non-stero idal anti-infl ammatory agent (product) medicatio n Not available Not available Not available 10/04/2021 73549 005 SNOMED FADI Santiago [address], [place], [address], [place] [facility] 2 10:52:20 225199 sucralfat e medicatio n Not available Not available Not available 10/06/2022 53221 [employer] Holliejunaid Jiang, JEAN [address], [place], [address], [place] [facility] [...] /min 108 mm[Hg] 62 mm[Hg] Not Available [facility] 10:29:44 Date Recorded Body temperature Oxygen saturation Oxygen saturation in Arterial blood by Pulse oximetry Respiratory rate Heart rate Systolic blood pressure Diastolic blood pressure Provider Name and Address Organization Details Last Updated DateTime 2 98.3 [degF] 98 % 98 % 16 /min 82 /min 126 mm[Hg] 74 mm[Hg] Not Available [facility] 2 12:32:06 Date Recorded Body temperature Respiratory [...] % 110 mm[Hg] 72 mm[Hg] Not Available [facility] 2 09:48:07 Date Recorded Respiratory rate Provider Name a nd Address Organization Details Last Updated DateTime 05/07/2022 20 /min FADI NASCIMENTO [address], [place], [address], [place] [facility] 05/07/2022 10:29:35 Date Recorded [...] 124 mm[Hg] 68 mm[Hg] Not Available [facility] 3 12:06:44 Social History Question Answer Notes LastModified by [employer] Details LastModified Time Tobacco Smoking Status Former Smoker FADI Young [address] [place], [address], [place] [facility] 10/04/2021 10:29:06 Do You Have An Advance Directive? Yes Information not available 10/06/2022 What Is Your Code Status? Full Code [email or web address] Information not available 10/06/2022 Within The Past 12 Months, Has It Happened That The Food You Bought Just Didn't Last And You Didn't Have Money To Get More. Never True [email or web address] Information not available 10/06/2022 Within The Past 12 Months, Have You Worried That Your Food Would Run Out Before You Got Money To Buy More. Never True [email or web address] Information not available 10/06/2022 Fall Risk: Do You Feel Unsteady When Standing Or Walking? No [email or web address] Information not available 10/06/2022 Excessive Alcohol Or Drug Use No [email or web address] Information not available 10/06/2022 Does This Patient Have A PCP? Yes [email or web address] Information not available 10/06/2022 ADL: Do You Need Help With Daily Activities Such As Bathing, Preparing Meals, Dressing, Or Cleaning? No [email or web address] Information not available 10/06/2022 What Is Your Current Pack Years? 10-19packye ars Information not available 10/06/2022 Sex: Unknown Functional Status Question Answer Note LastModified by Organizat ion Details LastModified Time Do you use any illicit or recreational drugs? No Information not available 10/04/2021 Do you or have you ever used any other forms of tobacco or nicotine? No Information not available 10/04/2021 What is your level of alcohol consumption? None Information not available 10/04/2021 Mental Status None recorded. Family History Relationship Description Onset Age of this Age Resolved Age Notes LastModified by Organization Details LastModified Time Sister Malignant tumor of colon [email or web address] Not available 2021 10:28:51 Medical History Condition Response Coronary Artery Disease N COPD N Depression Y Hypothyroidism N A-fib N Cancer N Stroke [...] SNOMED-CT Code Diagnosis ICD10 Code Diagnosis Note [id number] FADI Arevalo [facility] [address] [place] [address] 10/04/2021 09:57:17 10/09/2021 09:37:20 Wound cellulitis 709373739 L03.90 [id number] ASIF LOVELL NP [facility] [address] [place] [address] 01/03/2022 12:26:14 01/05/2022 09:24:30 Candidal intertrigo [id number] B37.2 [id number] FADI NASCIMENTO [facility] [address] [place] [address] 05/07/2022 09:43:13 05/10/2022 20:18:20 Community acquired pneumonia [id number] J18.9 Status of condition: {{Acute* C hronic [...] up precaution s Bilateral lower limb edema [id number] R60.0 Status of condition: {{Acute Ch ronic* Sta ble Worsen ing Uncont rolled Cri tical: Warrants escalation to ED. Undete rmined: Unclear staging of condition. Needs further evaluation and management by PCP and/or Specialist }}. Testing/Re sults:none Discussion :ddx includes CHF, PVD, DVT Plan, Medication Management & Follow-up recommenda tions:Cont inue eval and work up with pcp [id number] FADI Clemens [facility] - [facility] [address] [place] [address] 07/04/2022 11:34:05 07/06/2022 08:32:25 Acute bronchitis [id number] J20.9 Essential hypertension 04078605 I10 [id number] Hollie Jiang NP [facility] - [facility] [address] [place] [address] 10/06/2022 11:52:31 10/08/2022 18:44:12 Wound cellulitis [id number] L03.90 Status of condition: {{Acute Ex acerbation [...] None Recorded Advance Directives Directive Y: Payers Insurance Date Sequence Insurance Name Policy Number Policy Hall Covered Member ID Hall Member ID Guarantor Name 01/03/2022 1 [facility] (MEDICARE REPLACEMENT/AD VANTAGE - PPO) [id number] Mayra Rodriguez [id number] Mayra Gatesman 10/09/2022 1 [facility] (MEDICARE REPLACEMENT/AD VANTAGE - PPO) [id number] Mayra Rodriguez [id number] Mayra Rodriguez 08/20/2020 1 *SELF PAY* Mayra Rodriguez [id number] Mayra Gatesman 10/09/2021 1 [facility] - MEDICARE SOLUTIONS - MEDICARE COMPLETE (MEDICARE REPLACEMENT HMO) [id number] Mayra Rodriguez [id number] Mayra Gatesman 12/17/2022 2 [place]: [facility] Mayra Hernandez Rodriguez [id number] Mayra Rodriguez 01/03/2022 1 [facility] (MEDICARE REPLACEMENT/AD VANTAGE - HMO) [id number] Mayra Rodriguez [id number] Mayra Gatesman 10/09/2021 1 [facility] (MEDICARE REPLACEMENT/AD VANTAGE - HMO) [id number] Mayra Rodriguez [id number] Mayra Gatesman 10/09/2021 1 [facility] (MEDICARE REPLACEMENT/AD VANTAGE - HMO) [id number] Mayra Rodriguez [id number] Mayra Gatesman Notes Date Note Type Note Provider Name [...] today.Of note does reports she went to [facility] ER last night to get this looked at and she left after the wait was going to be 10+ hours, this was [facility]. FADI Young [address], [place], [address], [place] [facility] 10/04/2021 11:19:03 01/03/2022 text/html [...] well. ASIF LOVELL NP [address], [place], [address], [place] [facility] 01/03/2022 13:03:27 05/07/2022 text/html [...] showed RBBB. FADI NASCIMENTO [address], [place], [address], [place] [facility] 05/07/2022 10:38:42 07/04/2022 text/html 76 y/o female known to new to [...] been helping. FADI Clemens [address], [place], [address], [place] [facility] 07/04/2022 12:45:03 10/06/2022 text/html [...] edema. Hollie Jiang NP [address], [place], [address], [place] [facility] 10/06/2022 12:38:29 OBGyn Episode No OBEpisode recorded.
--- NOTE | 2024-09-22 13:39 | HO.NEPHOV ---
Vital Signs 09/22/24 13:43 Height 4 ft 11 in Weight 168 lb BMI 33.9 BP 102/60 Blood Pressure Location Lt brachial Position Sitting Pulse 98 Pulse Source Pulse Oximeter Pulse Oximetry (%) 94 Oxygen Delivery Method Room Air Intake Visit Reasons: 3wk follow-up w/labs- Conf Unemployment Specialist Required: No Accompanied by: Daughter Allergies sucralfate [Carafate] Allergy (Intermediate, Verified 09/22/24 13:42) hives NSAIDS (Non-Steroidal Anti-Inflamma Adverse Reaction (Intermediate, Verified 09/22/24 13:42) cannot take due to gastric bypass history HPI Comments Details: 78-year-old female with H/O right hip wound who follows up with wound care twice a week, hypertension, peripheral vascular disease as well as CKD who recently presented to emergency department? with weakness and confusion.?In the ER, patient?s blood pressure was 60/31,? tachycardic to 115 but mentating properly.?Laboratory data was significant for? sodium 132, potassium 3.2, BUN 88, creatinine 4.79, lactic acid 2.2, ALT 114, alk phos 225, CK 171, total protein 5.8 albumin 2.9. Patient received 3 L bolus, ceftriaxone 2 g, vancomycin 2g,? Zosyn 4.5, and started on phenylephrine drip and was admitted to ICU briefly. She was thought to have septic shock due to wound infection. She was treated with vancomycin + piperacillin-tazobactam and discharged on 1 week of doxycycline monohydrate plus amoxicillin-clavulanate. Her ECHO showed normal LV ejection fraction of 65-70% with severe biatrial enlargement severe dilated right ventricle with preserved contractility . Her RV systolic pressure was normal. Her hear rate-controlled adequately with metoprolol tartrate and was started on anticoagulation with apixaban 5 mg bid. Her ANIYA was thought to be due to acute tubular injury from septic shock. Her serum creatinine plateaued around 5.7 and improved to 2.3 on discharge. She did not need any renal replacement during her hospital stay. Today she was seen in follow up. She feels improved and her serum creatinine now is 1.07(. She was accompanied by her daughter Tanvi). REPLACED BY [facility] Medical History ANIYA (acute kidney injury) Hospital discharge follow-up Hip pain, right Soft tissue infection Sepsis Septic shock Acute hypotension Oropharyngeal dysphagia Post-COVID chronic dyspnea Chronic GERD Peripheral vascular disease SOULEYMANE (obstructive sleep apnea) Wound, open, hip or thigh with complication Encounter for general adult medical examination with abnormal findings Preoperative cardiovascular examination Change in bowel movement Traumatic seroma of right thigh Postprocedural seroma of skin and subcutaneous tissue following other procedure Open wound of right hip and thigh Right rib fracture Menopause Pain management Pain management contract agreement Open wound of right lower leg with complication Shortness of breath Cough Edema Influenza A H1N1 infection Cellulitis of right leg Varicose veins of right lower extremity with inflammation Enterococcus faecalis infection Abscess Hip pain, right Obesity Lymphedema Morbid obesity due to excess calories Pre-op evaluation Colon cancer screening Medicare annual wellness visit, subsequent Family history of anesthesia complication Back pain Arthritis Renal calculi Post-influenza syndrome Tremor Peripheral vascular disease Right bundle branch block (RBBB) Aortic valve calcification Mitral annular calcification Nocturnal hypoxemia COPD (chronic obstructive pulmonary disease) Restrictive lung disease Stasis edema of both lower extremities Nail fungus Depression, major, recurrent Hypertension, essential Surgical History S/P total right hip arthroplasty History of excision of lesion (10/20/23) History of total hip arthroplasty S/P gastric bypass History of surgery on lower extremity (01/25/23) History of surgery H/O colonoscopy History of cataract extraction History of bilateral tubal ligation History of tonsillectomy Family History Father No problems noted. Mother Alzheimer's disease Maternal Grandmother Cancer Maternal Grandfather No problems noted. Paternal Grandfather No problems noted. Paternal Grandmother No problems noted. Maternal Aunt Cancer Sister Colon cancer Son No problems noted. Daughter No problems noted. Social History Household Members: None Household Members Other:: daughter Housing: House Housing Other:: mobile home Are you a primary youth care specialist to a significant other at home: No Do you presently have visiting nurse or other home services: No Alcohol intake: former Patient Tobacco Use Status: Former Tobacco user Tobacco use type: Cigarette Years Smoked: 40 e-Cigarette/Vaping Use: Currently Using Second Hand Smoke Exposure: No Advance Directives Date on File: 03/13/15 service: No Current occupational status: retired and other Current occupation: right handed Cognitive needs: No Hearing needs: No Vision needs: No Female Reproductive History Menstrual Age of Menarche: 13 Review of Systems Const All systems reviewed & are unremarkable except as noted in HPI and below Physical Exam Vital Signs: Last Vital Signs Pulse 98 09/22/24 13:43 BP 102/60 09/22/24 13:43 Pulse Ox 94 09/22/24 13:43 Oxygen Delivery Method Room Air 09/22/24 13:43 BMI result Body Mass Index 33.9 Const General: comfortable and no acute distress Orientation/consciousness: patient oriented x3 HEENT Head: Yes normocephalic Mouth: Normal oral and palatal mucosa present Eyes EOM: EOMs intact bilaterally Neck Neck: Yes supple Resp Auscultation: clear to auscultation bilaterally Cardio Jugular venous distension: no JVD Rate: regular rate GI Palpation (GI): Soft to palpation Auscultation: normal bowel sounds General: Yes no CVA tenderness Back/Spine/Pelvis Back: no CVA tenderness Skin General skin exam: no rashes or lesions noted Neuro General: patient oriented x3 and moves all extremities Extrem General: Yes no pedal edema Results Reviewed Nephrology Results: Hgb 9.4 g/dl (12.0-16.0) L 09/20/24 WBC 6.1 X10*3/uL (4.8-10.8) 09/20/24 Plt Count 194 X10*3/uL (160-400) 09/20/24 Sodium 141 mmol/L (135-145) 09/20/24 Potassium 4.7 mmol/L (3.3-5.1) 09/20/24 Chloride 105 mmol/L (96-108) 09/20/24 Carbon Dioxide 27 mmol/L (22-29) 09/20/24 BUN 19 mg/dL (9-16) H 09/20/24 Creatinine 1.07 mg/dL (0.5-1.4) 09/20/24 Calcium 8.2 mg/dL (8.4-10.2) L 09/20/24 Assessment & Plan Assessment & Plan (1) CKD stage 3a, GFR 45-59 ml/min: Code(s): N18.31 - Chronic kidney disease, stage 3a Category: Medical (2) Hypertension: Code(s): I10 - Essential (primary) hypertension Category: Medical Qualifiers: Hypertension type: primary hypertension Qualified Code(s): I10 - Essential (primary) hypertension Plan ANIYA due to compromise in renal perfusion with resultant tubular injury- resolved Clinical context does not support any reason to suspect GN during recent ANIYA No hydronephrosis by imaging. Hemodynamics better/ stable; Continue to hold HCTZ Did not need renal replacement during recent ANIYA. No NSAID's. Hemodynamics stable C/W current management for now; No medication changes made today;F/U labs ordered Answered all questions. F/U given Orders: Orders Creatinine 4 Months N18.31 - Chronic kidney disease, stage 3a Blood Urea Nitrogen 4 Months N18.31 - Chronic kidney disease, stage 3a Electrolytes 4 Months N18.31 - Chronic kidney disease, stage 3a Protein Creatinine Ratio, Ur 4 Months I10 - Essential (primary) hypertension, N18.31 - Chronic kidney disease, stage 3a Coding Level of Care Code Est Pt Level 4 (94165) Diagnoses CKD stage 3a, GFR 45-59 ml/min N18.31 Primary hypertension I10 Hypertension type: primary hypertension
[2024-09-22 13:43] VITALS: BP 102/60; PULSE 98; O2SAT 94; BMI 33.9
== END 2024-09-22 13:56 | disposition home or self-care (01) ==
LOC: HO.HKA 13:30
PROVIDERS: PCP Internal Medicine; Visit Provider Internal Medicine Nephrology
DX: N18.31 Chronic kidney disease, stage 3a (principal); I10 Essential (primary) hypertension
CPT/HCPCS: 99214

== ENCOUNTER → 2024-09-22 13:29 | Outpatient (BNVA) | payer MEDICARE, MEDICAID, SELFPAY | PROVIDERS: PCP Internal Medicine; Visit Provider Internal Medicine Nephrology | DX: I12.9 Hypertensive chronic kidney disease with stage 1 through stage 4 chronic kidney disease, or unspecified chronic kidney disease (principal); N18.31 Chronic kidney disease, stage 3a; K59.01 Slow transit constipation; R11.0 Nausea; K21.00 Gastro-esophageal reflux disease with esophagitis, without bleeding; R19.00 Intra-abdominal and pelvic swelling, mass and lump, unspecified site; I73.9 Peripheral vascular disease, unspecified | CPT/HCPCS: 99212 ==

== ENCOUNTER 2024-09-22 15:44 | Outpatient (AMB) | payer MEDICARE, MEDICAID, SELFPAY ==
[2024-09-22 15:45] VITALS: BP 120/58; PULSE 97; BMI 32.9
--- NOTE | 2024-09-22 15:45 | A.OFFVIS_ITS ---
Vital Signs 09/22/24 15:45 Height 4 ft 11 in Weight 163 lb 2.273 oz BMI 32.9 BP 120/58 L Blood Pressure Location Lt brachial Position Sitting Pulse 97 Intake Visit Reasons: Acute nausea, GI upset. Recent hospitalization Intake Note: Mayra presents in the office as a follow up for nausea and GI upset. CC: She states she was recently seen in the ED. Last couple days have been okay but she is still having nausea and upset stomach - loose bowels she states due to the dulcolax. States that she has a hernia in her umbilical region due to straining from having bowel movements. Institution Director Required: No Allergies sucralfate [Carafate] Allergy (Intermediate, Verified 09/22/24 15:52) hives NSAIDS (Non-Steroidal Anti-Inflamma Adverse Reaction (Intermediate, Verified 09/22/24 15:52) cannot take due to gastric bypass history HPI HPI Acute nausea, GI upset. Recent hospitalization: Details: Assessment & Plan (1) GERD with esophagitis: Code(s): K21.00 - Gastro-esophageal reflux disease with esophagitis, without bleeding Category: Medical (2) Constipation: Code(s): K59.00 - Constipation, unspecified Category: Medical Qualifiers: Constipation type: slow transit constipation Qualified Code(s): K59.01 - Slow transit constipation Plan She was hospitalized with severe sepsis secondary to a hip infection (this has occurred chronically r/t hip hardware)! When in the hospital they have her lactulose that worked well, but she prefers to stay on her motegrity and bisa for now. She is still fatigued and deconditioned. Her current GI regimen consists of omeprazole (she opens the capsule and put it on food) and Motegrity with the occasional use a bisacodyl for breakthrough constipation. ROV 6 mos. Medications: Changed From omeprazole open capsule and mix granules with apple sauce 40 mg PO DAILY@0630 To omeprazole open capsule and mix granules with apple sauce 40 mg PO DAILY@0630 90 days 90 caps 1RF Refilled Motegrity (prucalopride) 2 mg PO DAILY 90 tabs 3RF NS K59.00 - Constipation, unspecified bisacodyl (Dulcolax (bisacodyl)) 10 mg (2 x 5 mg) PO BEDTIME 90 days 180 tabs 0RF TODAY'S VISIT I saw this patient a few weeks ago and at that time she had no complaints. Now she is calls and aspirin urgent visit because of acute onset new GI problems. She now says she has been nauseated since she was discharged from the hospital. New meds: eliquis and metoprolol, but she also had some medicaitons stopped. Her current GI regimen consists of omeprazole (she opens the capsule and put it on food) and Motegrity with the occasional use a bisacodyl for breakthrough constipation. She had her omperzole stopped r/t renal problems, but she is told now her kidnets are ok. Still, this could be a cause of the nausea so will order lansoprazole since this is metabolized hepatically adn is better for renal patients. SHe was rx'ed zofran w/o much help. She is on requip, but has been for years. ROV 2 weeks. [facility] Medical History (Updated 09/22/24 @ 16:24 by DELORSE Pérez) Thoracolumbar back pain Decreased GFR ANIYA (acute kidney injury) Self-care deficit in patient living alone Chronic wound Seroma of musculoskeletal structure after musculoskeletal system procedure New onset a-fib History of septic shock Hospital discharge follow-up Acute kidney injury superimposed on CKD Unspecified open wound, right hip, initial encounter Sleep disorder Abnormal skin growth Tubular adenoma of colon Ex-smoker Mitral annular calcification Aortic valve calcification Stasis edema of both lower extremities Family history of colon cancer Nail fungus Nocturnal hypoxemia Right bundle branch block Premature atrial contractions Hip pain, right Soft tissue infection Sepsis Septic shock Acute hypotension Oropharyngeal dysphagia Post-COVID chronic dyspnea Chronic GERD Peripheral vascular disease SOULEYMANE (obstructive sleep apnea) Wound, open, hip or thigh with complication Encounter for general adult medical examination with abnormal findings Preoperative cardiovascular examination Change in bowel movement Traumatic seroma of right thigh Postprocedural seroma of skin and subcutaneous tissue following other procedure Open wound of right hip and thigh Right rib fracture Menopause Pain management Pain management contract agreement Open wound of right lower leg with complication Shortness of breath Cough Edema Influenza A H1N1 infection Cellulitis of right leg Varicose veins of right lower extremity with inflammation Enterococcus faecalis infection Abscess Hip pain, right Obesity Lymphedema Morbid obesity due to excess calories Pre-op evaluation Colon cancer screening Medicare annual wellness visit, subsequent Family history of anesthesia complication Back pain Arthritis Renal calculi Post-influenza syndrome Tremor Peripheral vascular disease Right bundle branch block (RBBB) Aortic valve calcification Mitral annular calcification COPD (chronic obstructive pulmonary disease) Restrictive lung disease Depression, major, recurrent Hypertension, essential Surgical History S/P total right hip arthroplasty History of excision of lesion (10/20/23) History of total hip arthroplasty S/P gastric bypass History of surgery on lower extremity (01/25/23) History of surgery H/O colonoscopy History of cataract extraction History of bilateral tubal ligation History of tonsillectomy Family History Father No problems noted. Mother Alzheimer's disease Maternal Grandmother Cancer Maternal Grandfather No problems noted. Paternal Grandfather No problems noted. Paternal Grandmother No problems noted. Maternal Aunt Cancer Sister Colon cancer Son No problems noted. Daughter No problems noted. Social History Household Members: None Household Members Other:: daughter Housing: House Housing Other:: mobile home Are you a primary career development coordinator to a significant other at home: No Do you presently have visiting nurse or other home services: No Alcohol intake: former Patient Tobacco Use Status: Former Tobacco user Tobacco use type: Cigarette Years Smoked: 40 e-Cigarette/Vaping Use: Currently Using Second Hand Smoke Exposure: No Advance Directives Date on File: 03/13/15 service: No Current occupational status: retired and other Current occupation: right handed Cognitive needs: No Hearing needs: No Vision needs: No Female Reproductive History Menstrual Age of Menarche: 13 Review of Systems Const Denies fatigue, Denies fever(s), Denies night sweats, Denies poor appetite and Denies weight loss ENT Reports Normal hearing present, Denies dental pain, Denies dysphagia, Denies hearing loss, Denies mouth pain, Reports neck pain, Denies odynophagia, Denies throat swelling, Denies tongue swelling and Reports other (Dentition adequate) Card Reports no additional complaints and Reports dyspnea on exertion Resp Reports dyspnea on exertion GI Details: Denies abdominal pain, Denies melena, Reports bloating, Denies hematochezia, Reports constipation, Denies GI cramping, Denies dysphagia, Denies excessive flatus, Denies early satiety, Reports heartburn, Denies diarrhea, Reports nausea, Denies odynophagia, Denies vomiting and Denies hematemesis Musc Reports abnormal gait, Reports myalgias, Reports arthralgias and Reports neck pain Skin/Breast Denies pruritus, Denies lesions, Denies rash and Denies jaundice Neuro Reports Normal hearing present, Denies Abnormal speech present and Reports abnormal gait Endo Denies fatigue Aller/Immun Denies throat swelling and Denies tongue swelling Physical Exam Vital Signs: Last Vital Signs Pulse 97 09/22/24 15:45 BP 120/58 L 09/22/24 15:45 BMI result Body Mass Index 32.9 Const General: cooperative, no acute distress, well developed and well groomed Nutritional Appearance: well nourished and obese Orientation/consciousness: oriented to person, oriented to place and oriented to time Limitations: No language barrier and ambulation with walker HEENT Head: Yes normocephalic and Yes atraumatic Eyes General: appearance normal, both eyes and all related structures Pupils: Equal, round and reactive pupils present Neck Neck: Yes normal visual inspection and Yes no lymphadenopathy Thyroid: Thyroid normal Resp Effort & Inspection: normal respiratory effort and able to speak in complete sentences Auscultation: clear to auscultation bilaterally Cardio Rate: regular rate Rhythm: regular rhythm Heart sounds: Normal, physiologic split S2 sound present Peripheral pulses: radial pulses present and posterior tibial pulses present GI Inspection: No distended, Yes Abdominal panniculus present, Yes obesity and Yes visible herniation (Question umbilical versus ventral) Palpation (GI): Soft to palpation, nontender, no guarding, not rigid and No hepatosplenomegaly present Percussion: Yes normal to percussion Auscultation: normal bowel sounds Rectal Exam - Female: deferred Skin General skin exam: no rashes or lesions noted, turgor normal, skin not dry, no jaundice, No spider nevi and no striae Rashes: no rashes Nails: normal Neuro General: oriented to person, oriented to place and oriented to time Cranial nerves: Yes Equal, round and reactive pupils present and Yes Normal hearing present Speech: No Abnormal speech present Extrem General: Yes normal to inspection, No clubbing, No cyanosis and Yes edema Psych Appearance: grossly normal and well kempt Mental Status: mental status grossly normal Speech and movement: Normal speech and movement present Affect: normal affect Attitude: cooperative Thought process: Normal thought process present and not confabulating Thought content: Normal thought content present Insight: Fair insight present (Psych) and Limited insight present (Psych) Judgement: Fair judgement present (Psych) and Limited judgement present (Psych) Assessment & Plan Assessment & Plan (1) Nausea: Code(s): R11.0 - Nausea Category: Medical (2) GERD with esophagitis: Code(s): K21.00 - Gastro-esophageal reflux disease with esophagitis, without bleeding Category: Medical (3) Abdominal wall bulge: Code(s): R19.00 - Intra-abdominal and pelvic swelling, mass and lump, unspecified site Category: Medical Plan I saw this patient a few weeks ago and at that time she had no complaints. Now she is calls and aspirin urgent visit because of acute onset new GI problems. She now says she has been nauseated since she was discharged from the hospital. New meds: eliquis and metoprolol, but she also had some medications stopped. Her current GI regimen consists of omeprazole (she opens the capsule and put it on food) and Motegrity with the occasional use a bisacodyl for breakthrough constipation. She had her omeprazole stopped r/t renal problems, but she is told now her kidneys are ok. Still, this could be a cause of the nausea so will order lansoprazole since this is metabolized hepatically and is better for renal patients. She was rx'ed zofran w/o much help. She is on requip, but has been for years. ROV 2 weeks. Orders: Orders US abdomen limited Today R19.00 - Intra-abdominal and pelvic swelling, mass and lump, unspecified site Medications: New lansoprazole 30 mg PO DAILY 30 caps 6RF K21.00 - Gastro-esophageal reflux disease with esophagitis, without bleeding Coding Level of Care Code Est Pt Level 3 (16561) Diagnoses Nausea R11.0 GERD with esophagitis K21.00 Abdominal wall bulge R19.00
== END 2024-09-22 16:14 | disposition home or self-care (01) ==
LOC: HO.HGI 15:44
PROVIDERS: PCP Internal Medicine; Visit Provider Nurse Practitioner
DX: R11.0 Nausea (principal); K21.00 Gastro-esophageal reflux disease with esophagitis, without bleeding; R19.00 Intra-abdominal and pelvic swelling, mass and lump, unspecified site
CPT/HCPCS: 99213

== ENCOUNTER → 2024-09-26 08:02 | Outpatient (RCR) | payer MEDICARE, MEDICAID, SELFPAY | END | disposition home or self-care (01) | LOC: HO.PTCHIC 02-13 07:53 | PROVIDERS: PCP Internal Medicine; Visit Provider Internal Medicine | DX: M25.551 Pain in right hip (principal) | CPT/HCPCS: 97110; 97112; 97140 ==

== ENCOUNTER → 2024-09-28 09:02 | Outpatient (REF) | payer MEDICARE, MEDICAID, SELFPAY ==
--- NOTE | 2024-09-28 09:10 | HM_ITS ---
Conclusion: 1. Patient was monitored for total period of 3 days 2. Baseline was atrial fibrillation with average heart rate of 108 beats per minute with inadequate rate control with 56% of time heart rate about 100 beats per minute 3. No significant pauses noted 4. No patient reported events MTDD
== END ==
LOC: HO.CARD 09:02
PROVIDERS: PCP Internal Medicine; Visit Provider Internal Medicine
DX: Z13.89 Encounter for screening for other disorder (principal)
CPT/HCPCS: 93242

== ENCOUNTER 2024-09-28 13:59 | Inpatient (IN) | payer MEDICARE, MEDICAID, SELFPAY ==
[2024-09-28] VITALS (47 sets, daily range): BP systolic 65–121; BP diastolic 25–68; PULSE 93–139; RESP 15–30; TEMP 36.8–39.9; O2SAT 90–100; BMI 36.4; BMI 34.8
--- NOTE | 2024-09-28 | ECG_ITS ---
Test Reason : tachycardia Blood Pressure : */* mmHG Vent. Rate : 133 BPM Atrial Rate : * BPM P-R Int : * ms QRS Dur : 124 ms QT Int : 308 ms P-R-T Axes : * 115 -29 degrees QTcB Int : 458 ms Atrial fibrillation with rapid ventricular response Right bundle branch block Abnormal ECG When compared with ECG of 17-Aug-2024 14:49, QRS duration has decreased Criteria for Anterior infarct are no longer Present Nonspecific T wave abnormality no longer evident in Lateral leads Referred By: Generic ED Physician Electronically Signed By: Eric Flores
--- NOTE | ~2024-09-28 | CT_ITS ---
CLINICAL HISTORY: chronic wound recurrent LE infecion ? osteo CT right femur without intravenous contrast Comparison: CT/SR - CT FEMUR RT WO IV CON - 08/17/24 21:21 EDT Findings: Right total hip arthroplasty. Subcutaneous edema throughout the right thigh. Mildly enlarged right anterior thigh lymph node, likely reactive. No abscess, soft tissue gas or evidence of osteomyelitis. No acute fracture or dislocation. Vascular calcifications. Impression: Subcutaneous edema throughout the right thigh without abscess, soft tissue gas or osteomyelitis. This document has been electronically signed by: Tosha Garcia MD on 09/28/2024 21:54:14
--- NOTE | ~2024-09-28 | XR_ITS ---
CLINICAL HISTORY: PICC placement 1 view chest x-ray. Comparison: CR - XR CHEST 1V - 08/19/24 12:25 EDT Findings: Stable low lung volumes. Improvement in the pleural-parenchymal disease lung bases. No pneumothorax. Heart size normal. No passive venous congestion. No midline shift or tracheal deviation. No acute fracture. Right-sided PICC line tip atriocaval junction. Impression: 1. Properly positioned right PICC line This document has been electronically signed by: Remberto Martini MD on 10/05/2024 18:18:00
--- NOTE | ~2024-09-28 | CT_ITS ---
CLINICAL HISTORY: r leg cellulitis ? gas osteo CT right lower extremity without intravenous contrast Comparison: CT/SR - CT FEMUR RT WO IV CON - 08/17/24 21:21 EDT Findings: Images were obtained from the knee through the ankle. Subcutaneous edema throughout the visualized lower extremities. No abscess or soft tissue gas. No evidence of osteomyelitis. No acute fracture or dislocation. There is motion artifact in the ankle. Vascular calcifications. Impression: Subcutaneous edema throughout the right lower extremity without abscess, soft tissue gas or evidence of osteomyelitis. This document has been electronically signed by: Tosha Garcia MD on 09/28/2024 21:52:58
--- NOTE | 2024-09-28 14:39 | PC.NURSE ---
Right lower extremity noted to be bright red, rash-like. Patient states that she believes this was caused by her medication (Lansoprozole). Hx sepsis and multiple recent admissions over past month. Bilateral IV accesses established. 18g left AC inserted by EMS. 20g right AC inserted by this RN. Dr. Arthur aware of patient's heart rate & rhythm. 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 Mild tremors noted at baseline. 103.8 F rectal temperature upon arrival to ED. BP low side of normal range (107/47, last BP). Alert & oriented, answers all questions appropriately. Wound to right hip, dressing from home RN is in place. Plan to assess wound with MD at bedside.
[2024-09-28 14:40] LABS: Basophils Percent Auto 0.2 % (0-2); Hematocrit 29.4 % (37.0-47.0); Hemoglobin 9.6 g/dl (12.0-16.0); Imm Gran Abs Auto 0.31 X10*3/uL (0.00-0.03); Imm Gran Pct Auto 1.8 % (0.0-0.4); Lymphocytes Absolute Auto 0.3 X10*3/uL (1.2-4.9); Lymphocytes Percent Auto 1.6 % (20-40); MANUAL DIFF FLAG SCAN; Mean Corpuscular HGB Conc 32.7 g/dl (31.0-35.0); Mean Corpuscular Hemoglobin 31.7 pg (27.0-33.0); Mean Platelet Volume 8.8 fL (9.4-12.3); Monocytes Absolute Auto 0.6 X10*3/uL (0.1-1.2); Monocytes Percent Auto 3.4 % (2-11); Neutrophils Absolute Auto 15.9 x10*3/uL (2.0-8.3); Platelet Count 201 X10*3/uL (160-400); Red Blood Count 3.03 X10*6/uL (4.20-5.50); Red Cell Distribution Width 13.7 % (11.0-16.0); SCAN SMEAR FLAG 1; White Blood Count 17.1 X10*3/uL (4.8-10.8)
[2024-09-28 14:46] LABS: INTERNATIONAL NORM RATIO 1.8 (0.9-1.1); Prothrombin Time 20.8 SEC (10.9-12.4)
[2024-09-28 14:48] LABS: Partial Thromboplastin Time 26.6 SEC (26.0-36.8)
[2024-09-28 14:55] LABS: Alanine Aminotransferase 6 U/L (0-31); Albumin Level 3.4 g/dL (3.5-5.0); Alkaline Phosphatase 63 U/L (39-117); Anion Gap 15 (12-20); Aspartate Amino Transferase 21 U/L (5-31); Bilirubin Direct 0.3 mg/dL (0.0-0.5); Bilirubin Total 0.7 mg/dL (0.0-1.0); Blood Urea Nitrogen 29 mg/dL (9-16); Carbon Dioxide 21 mmol/L (22-29); Chloride 102 mmol/L (96-108); Estimated Glomerular Filt Rate 20; Glucose Random 113 mg/dL (60-115); Potassium 3.8 mmol/L (3.3-5.1); Sodium 134 mmol/L (135-145); Total Protein 6.5 g/dL (6.5-8.0)
[2024-09-28 14:57] LABS: SLIDE REVIEW VERIFIED
[2024-09-28 14:58] LABS: Lactic Acid 2.1 mmol/L (0.5-2.0)
--- NOTE | 2024-09-28 15:02 | ED_ITS ---
HPI - General Adult General Chief complaint: General Medical Stated complaint: PER EMS FEVER AND ?AFIB Time Seen by Provider: 09/28/24 14:22 Source: patient Mode of arrival: EMS Limitations: no limitations History of Present Illness ED Provider: Dr. Franky Arthur HPI narrative: 78-year-old female with a history of hypertension, chronic kidney disease, atrial fibrillation, SOULEYMANE, COPD, hypertension, depression who presents emergency department for evaluation of chronic draining right hip wound with increased drainage with foul odor, fever and new right lower extremity rash. Patient states that she took a new medicine yesterday and then developed ?an angry red rash ?on her right leg. She developed a fever, chills and weakness. Patient denied pain in the area of the right leg rash. Here in the emergency department, the patient was noted to have an elevated heart rate of 131, elevated temperature of a 103.8 degrees F orally. The patient was recently admitted for sepsis with hypotension from 08/17/2024 until 08/27/2024, acute septic shock was believed to be secondary to right chronic hip wound. Patient had an echocardiogram at that time with a ejection fraction of 65-70%, she had atrial fibrillation with RVR and rate was controlled with metoprolol. She also had acute kidney injury secondary to ATN. Patient's hypotesion was treated with Levophed and phenylephrine . She was discharged on doxycycline, Augmentin x7 days and Eliquis for her atrial fibrillation. Related Data Home Medications ?Medication ?Instructions ?Recorded ?Confirmed ferrous sulfate 325 mg (65 mg 325 mg PO BEDTIME 04/02/20 09/28/24 iron) tablet (Feosol) escitalopram oxalate 20 mg tablet 20 mg PO DAILY 07/30/20 09/28/24 (Lexapro) lorazepam 0.5 mg tablet 0.25 mg PO DAILY PRN Anxiety 06/24/22 09/28/24 primidone 50 mg tablet 50 mg PO BEDTIME 10/12/23 09/28/24 alendronate 70 mg tablet (Fosamax) 70 mg PO [place] 08/17/24 09/28/24 ascorbic acid (vitamin C) 250 mg 1,000 mg PO DAILY 09/08/24 09/28/24 tablet cholecalciferol (vitamin D3) 50 50 mcg PO DAILY 09/22/24 09/28/24 mcg (2,000 unit) capsule acetaminophen 325 mg tablet 650 mg PO Q6H PRN Pain 09/28/24 09/28/24 aripiprazole 10 mg tablet 10 mg PO DAILY 09/28/24 09/28/24 bupropion HCl 150 mg 24 hr tablet, 150 mg PO DAILY 09/28/24 09/28/24 extended release bupropion HCl 300 mg 24 hr tablet, 300 mg PO DAILY 09/28/24 09/28/24 extended release hydrochlorothiazide 25 mg tablet 25 mg PO DAILY 09/28/24 09/28/24 omeprazole 40 mg capsule,delayed 40 mg PO DAILY@0630 09/28/24 09/28/24 release Previous Rx's ?Medication ?Instructions ?Recorded Motegrity 2 mg tablet 2 mg PO DAILY #90 tabs 08/30/24 (prucalopride) apixaban 5 mg tablet (Eliquis) 5 mg PO BID #60 tabs 09/26/24 metoprolol tartrate 25 mg tablet 25 mg PO Q12H #60 tabs 09/26/24 Allergies Allergy/AdvReac Type Severity Reaction Status Date / Time sucralfate [Carafate] Allergy Intermediate hives Verified 09/28/24 14:19 NSAIDS (Non-Steroidal AdvReac Intermediate cannot Verified 09/28/24 14:19 Anti-Inflamma take due to gastric bypass history Review of Systems 2 Review of Systems: Yes all other systems are reviewed and are negative [facility] Past Medical History Medical History (Updated 09/28/24 @ 19:32 by FADI Rizo) Thoracolumbar back pain Decreased GFR ANIYA (acute kidney injury) Self-care deficit in patient living alone Chronic wound Seroma of musculoskeletal structure after musculoskeletal system procedure New onset a-fib History of septic shock Hospital discharge follow-up Acute kidney injury superimposed on CKD Unspecified open wound, right hip, initial encounter Sleep disorder Abnormal skin growth Tubular adenoma of colon Ex-smoker Mitral annular calcification Aortic valve calcification Stasis edema of both lower extremities Family history of colon cancer Nail fungus Nocturnal hypoxemia Right bundle branch block Premature atrial contractions Hip pain, right Soft tissue infection Sepsis Septic shock Acute hypotension Oropharyngeal dysphagia Post-COVID chronic dyspnea Chronic GERD Peripheral vascular disease SOULEYMANE (obstructive sleep apnea) Wound, open, hip or thigh with complication Encounter for general adult medical examination with abnormal findings Preoperative cardiovascular examination Change in bowel movement Traumatic seroma of right thigh Postprocedural seroma of skin and subcutaneous tissue following other procedure Open wound of right hip and thigh Right rib fracture Menopause Pain management Pain management contract agreement Open wound of right lower leg with complication Shortness of breath Cough Edema Influenza A H1N1 infection Cellulitis of right leg Varicose veins of right lower extremity with inflammation Enterococcus faecalis infection Abscess Hip pain, right Obesity Lymphedema Morbid obesity due to excess calories Pre-op evaluation Colon cancer screening Medicare annual wellness visit, subsequent Family history of anesthesia complication Back pain Arthritis Renal calculi Post-influenza syndrome Tremor Peripheral vascular disease Right bundle branch block (RBBB) Aortic valve calcification Mitral annular calcification COPD (chronic obstructive pulmonary disease) Restrictive lung disease Depression, major, recurrent Hypertension, essential Surgical History S/P total right hip arthroplasty History of excision of lesion (10/20/23) History of total hip arthroplasty S/P gastric bypass History of surgery on lower extremity (01/25/23) History of surgery H/O colonoscopy History of cataract extraction History of bilateral tubal ligation History of tonsillectomy Family History Family History Father No problems noted. Mother Alzheimer's disease Maternal Grandmother Cancer Maternal Grandfather No problems noted. Paternal Grandfather No problems noted. Paternal Grandmother No problems noted. Maternal Aunt Cancer Sister Colon cancer Son No problems noted. Daughter No problems noted. Social History Social History (Updated 09/28/24 @ 21:17 by Bairon Bradley RN) Household Members: None Housing: Other Housing Other:: Mobile home Are you a primary vision care associate to a significant other at home: No Do you presently have visiting nurse or other home services: Yes (Wound Care) Alcohol intake: former Patient Tobacco Use Status: Former Tobacco user Tobacco use type: Cigarette Years Smoked: 40 Smoked in Last 30 Days: No e-Cigarette/Vaping Use: Currently Using Second Hand Smoke Exposure: No Use of substances other than those prescribed or required for medical reasons: No Currently Displaying Signs/Symptoms of Drug Intoxication Withdrawal: No Advance Directives: Yes Advance Directives on File: Yes Advance Directives Date on File: 03/13/15 Nutrition Risks: Surgical patient >75years Patient : No service: No Current occupational status: retired and other Current occupation: right handed Cognitive needs: No Hearing needs: No Vision needs: No Physical Exam ED Vital Signs: Vital Signs - 24 hr 09/28/24 14:16 09/28/24 14:19 09/28/24 14:28 Temperature 103.8 F H Pulse Rate 131 H 121 H 139 H Respiratory Rate 18 20 29 H Blood Pressure 113/51 L 111/45 L 104/49 L Pulse Oximetry 95 94 92 Oxygen Delivery Method Room Air Room Air Room Air 09/28/24 14:43 09/28/24 14:59 09/28/24 15:14 Temperature Pulse Rate 127 H 131 H 134 H Respiratory Rate 30 H 25 H 24 H Blood Pressure 107/47 L 99/45 L 90/38 L Pulse Oximetry 95 94 90 L Oxygen Delivery Method Room Air Room Air Room Air 09/28/24 15:18 09/28/24 15:29 09/28/24 15:31 Temperature 103.5 F H Pulse Rate 136 H 131 H Respiratory Rate 28 H 22 H Blood Pressure 99/42 L 84/39 L 85/42 L Pulse Oximetry 100 95 Oxygen Delivery Method Room Air Room Air 09/28/24 15:39 09/28/24 15:44 09/28/24 15:49 Temperature Pulse Rate 136 H 130 H 132 H Respiratory Rate 26 H 28 H 26 H Blood Pressure 95/50 L 75/25 L 75/32 L Pulse Oximetry 94 95 95 Oxygen Delivery Method Room Air Room Air Room Air 09/28/24 15:51 09/28/24 15:58 09/28/24 16:00 Temperature Pulse Rate 131 H 129 H 127 H Respiratory Rate 24 H 22 H 21 H Blood Pressure 81/42 L 78/44 L 77/43 L Pulse Oximetry 95 95 96 Oxygen Delivery Method Room Air Room Air Room Air 09/28/24 16:30 09/28/24 16:31 09/28/24 16:35 Temperature Pulse Rate 128 H 133 H Respiratory Rate 19 22 H Blood Pressure 65/35 L 66/36 L 74/37 L Pulse Oximetry 95 95 Oxygen Delivery Method Room Air Room Air 09/28/24 16:36 09/28/24 16:36 Temperature 101.7 F H 101.7 F H Pulse Rate 131 H Respiratory Rate 20 Blood Pressure 97/37 L Pulse Oximetry 96 Oxygen Delivery Method Room Air BMI result Body Mass Index 36.4 Vital signs revealed an elevated temperature, elevated heart rate otherwise unremarkable Exam: General: Awake, alert in no distress Head: Normocephalic, atraumatic EENT: PERRL, Lids normal, sclera normal, conjunctiva normal, nose normal , ears normal, throat without erythema or exudates Neck: Supple, no adenopathy Lung: breath sounds symmetric, no wheezing, rales or rhonchi Chest: symmetric movement, nontender Heart: Tachycardia with an irregular irregular rate and rhythm, normal S1, S2 no murmurs or rubs Abdomen: soft, non-tender, nondistended, normal bowel sounds, patient does have abdominal hernia which is nontender and easily reducible Back: no vertebral tenderness, no CVAT Extremities: no deformities, patient has a dark, red rash to her right lower extremity which is warm to the touch and nonblanching, nontender. Patient also has a chronic draining wound to her right hip, I did insert Q-tip into the wound and the patient has a tract about 1 cm deep, there was a thin, serosanguineous fluid on cotton part of the Q-tip whic was sent for culture. Neuro: Awake, alert, oriented, normal speech, cranial nerves intact, moves all extremities symmetrically Psych: Pleasant, cooperative Medications Administered Generic Name Dose Route Start Last Admin Trade Name Freq PRN Reason Stop Dose Admin Acetaminophen 650 mg 09/29/24 08:49 09/29/24 09:22 Acetaminophen 325 Mg Tablet PO 650 mg Q4H PRN Administration Pain, Mild 1-3,fever,headache Apixaban 2.5 mg 09/29/24 09:00 09/29/24 08:11 Apixaban 2.5 Mg Tablet PO 2.5 mg BID KENNEDY Administration Norepinephrine Bitartrate 8 mg in 250 mls @ 0 mls/hr 09/28/24 16:45 09/29/24 10:17 Levophed IVCONT 0.07 mcg/kg/min .Q0M KENNEDY 10.36 mls/hr Titration Protocol Per Protocol Piperacillin Sod/Tazobactam 50 mls @ 100 mls/hr 09/28/24 21:00 09/29/24 08:59 Sod 2.25 gm/ Sodium Chloride IV Infused Q6H KENNEDY Infusion Lactated Ringer's 1,000 mls @ 100 mls/hr 09/28/24 19:30 09/29/24 05:46 Lr IVCONT 100 mls/hr .Q10H KENNEDY Administration Discontinued Medications Generic Name Dose Route Start Last Admin Trade Name José Luis PRN Reason Stop Dose Admin Acetaminophen 975 mg 09/28/24 15:06 09/28/24 15:18 Acetaminophen 325 Mg Tablet PO 09/28/24 15:07 975 mg ONCE ONE Administration Hydrocortisone Sodium Succinate 100 mg 09/28/24 16:34 09/28/24 16:49 Hydrocortisone Sod Succ/Pf 100 Mg Vial IVPUSH 09/28/24 16:35 100 mg ONCE ONE Administration Piperacillin Sod/Tazobactam 100 mls @ 200 mls/hr 09/28/24 15:04 09/28/24 15:48 Sod 4.5 gm/ Sodium Chloride IV 09/28/24 15:33 Infused ONCE ONE Infusion Vancomycin HCl 2,000 mg in 500 mls @ 250 mls/hr 09/28/24 15:04 09/28/24 19:05 Vancomycin/Ns IV 09/28/24 17:03 Infused ONCE ONE Infusion Lactated Ringer's 2,367 mls @ 2,367 mls/hr 09/28/24 15:05 09/28/24 16:18 Lr 30 ml/kg infuse over 1 hr (2367 ml) 09/28/24 16:04 Infused IV Infusion .Q1H ONE Albumin Human 100 mls @ 133.333 mls/hr 09/28/24 19:30 09/28/24 21:58 Kedbumin 25 % IV 09/28/24 21:14 Infused Q1H KENNEDY Infusion Albumin Human 100 mls @ 133.333 mls/hr 09/29/24 05:45 09/29/24 07:25 Kedbumin 25 % IV 09/29/24 07:29 Infused Q1H KENNEDY Infusion Medical Decision Making Medical Decision Making MDM Narrative: 78-year-old female with a history of hypertension, chronic kidney disease, atrial fibrillation, SOULEYMANE, COPD, hypertension, depression who presents emergency department for evaluation of chronic draining right hip wound with increased drainage with foul odor, fever and new right lower extremity rash. Patient states that she took a new medicine yesterday and then developed ?an angry red rash ?on her right leg. She developed a fever, chills and weakness. Patient denied pain in the area of the right leg rash. Here in the emergency department, the patient was noted to have an elevated heart rate of 131, elevated temperature of a 103.8 degrees F orally. The patient was recently admitted for sepsis with hypotension from 08/17/2024 until 08/27/2024, acute septic shock was believed to be secondary to right chronic hip wound. Patient had an echocardiogram at that time with a ejection fraction of 65-70%, she had atrial fibrillation with RVR and rate was controlled with metoprolol. She also had acute kidney injury secondary to ATN. Patient's hypotesion was treated with Levophed and phenylephrine . She was discharged on doxycycline, Augmentin x7 days and Eliquis for her atrial fibrillation. 15:03 Differential diagnosis: ?Includes but is not limited to right leg cellulitis, right hip wound infection, sepsis, anemia, electrolyte abnormalities Course: 15:03 Patient was made a sepsis alert and treated with LR 30 cc/kilogram bolus, vancomycin 2 g IV and Zosyn 4.5 g IV. She was also given Tylenol 975 mg orally for her fever. 16:43 my interpretation the patient's laboratory evaluation is as follows: WBC elevated 17,100. chronic normocytic anemia with an H&H of 9.6 and 29.4 with a normal platelet count. INR was elevated 1.8. PTT was normal. sodium was low 134. Bicarb was low 21. BUN creatinine were elevated 29 and 2.31 with the creatinine being above her previous baseline values. CRP was elevated 21.26. ESR was elevated at 39. lactic acid was elevated 2.1. I suspect that the patient's infectious source is most likely right lower extremity cellulitis. A wound culture of the right nonhealing thigh wound was obtained by me. Patient is hypotensive after completin her LR bolus therefore she was started on Levophed. I did perform a focused exam. I also ordered hydrocortisone 100 mg IV. Patient did receive oral Tylenol with improvement in her temperature but she is still febrile. Patient is still has atrial fibrillation with RVR and this is most likely secondary to her hypotension and possibly secondary to being volume depleted. I did discuss the patient's presentation, hypotension and need for admission with the covering administrative liaison, Dr. Woods and he accepted the patient into the ICU. Admission/Observation Consideration of admission/observation: Escalation of care including admission/observation considered (Yes) Consult Healthcare Provider Management of the patient was discussed with: Account Liaison ( administrative liaison,Dr. Woods) Lab Data MDM Lab Attestation statement: I reviewed the patient's lab results. His 09/29/24 04:48 09/29/24 04:48 Labs: Lab Results 09/28/24 Range/Units 14:32 WBC 17.1 H (4.8-10.8) X10*3/uL RBC 3.03 L (4.20-5.50) X10*6/uL Hgb 9.6 L (12.0-16.0) g/dl Hct 29.4 L (37.0-47.0) % MCV 97.0 (80.0-98.0) fL MCH 31.7 (27.0-33.0) pg MCHC 32.7 (31.0-35.0) g/dl RDW 13.7 (11.0-16.0) % Plt Count 201 (160-400) X10*3/uL MPV 8.8 L (9.4-12.3) fL Immature Gran % (Auto) 1.8 H (0.0-0.4) % Neut % (Auto) 93.0 H (45-73) % Lymph % (Auto) 1.6 L (20-40) % Larue % (Auto) 3.4 (2-11) % Eos % (Auto) 0.0 (0-4) % Baso % (Auto) 0.2 (0-2) % Lymph # (Auto) 0.3 L (1.2-4.9) X10*3/uL Larue # (Auto) 0.6 (0.1-1.2) X10*3/uL Eos # (Auto) 0.0 (0.0-0.4) X10*3/uL Baso # (Auto) 0.0 (0.0-0.2) X10*3/uL Abs Immat Gran (auto) 0.31 H (0.00-0.03) X10*3/uL Absolute Neuts (auto) 15.9 H (2.0-8.3) x10*3/uL Absolute Nucleated RBC 0.000 (0.0-0.012) X10*3/uL Nucleated RBC % (auto) 0.0 (0.0-0.2) /100WBC Smear Tech's Comments VERIFIED ESR 39 H (0-20) MM/HR PT 20.8 H (10.9-12.4) SEC INR 1.8 H (0.9-1.1) APTT 26.6 (26.0-36.8) SEC Sodium 134 L (135-145) mmol/L Potassium 3.8 (3.3-5.1) mmol/L Chloride 102 (96-108) mmol/L Carbon Dioxide 21 L (22-29) mmol/L Anion Gap 15 (12-20) BUN 29 H (9-16) mg/dL Creatinine 2.31 H (0.5-1.4) mg/dL Estim Creat Clear Calc 18.0 Estimated GFR 20 Random Glucose 113 (60-115) mg/dL Lactic Acid 2.1 H* (0.5-2.0) mmol/L Calcium 8.0 L (8.4-10.2) mg/dL Total Bilirubin 0.7 (0.0-1.0) mg/dL Direct Bilirubin 0.3 (0.0-0.5) mg/dL AST 21 (5-31) U/L ALT 6 (0-31) U/L Alkaline Phosphatase 63 (39-117) U/L C-Reactive Protein 21.26 H (< or = 0.50) mg/dL Total Protein 6.5 (6.5-8.0) g/dL Albumin 3.4 L (3.5-5.0) g/dL Independent Interpretation I performed an independent interpretation of an: EKG Interpretation: my independent interpretation patient's 12 EKG done on 09/28/2024 at 14:19 hours is as follows: Atrial fibrillation with a rapid ventricular response of 133, prolonged QRS of 124 milliseconds, normal QTC, no significant ST segment elevation, no significant ST segment depression, no significant T-wave abnormalities. When compared to EKG dated 08/17/2024 at 14:49 hours, the previous EKG has an obvious right bundle-branch block which may be obscured on today's EKG secondary to artifact. Independent Historian Clinical information obtained from an independent historian. History obtained from or confirmed by: Other ( Daughter) External Record Review External record reviewed: Inpatient record Chronic Conditions Patient?s care impacted by: Other ( COPD) Critical Care Time Critical Care Time Total Critical Care Time: 90 Attestation: Critical Care: The patient was critically ill with a high probability of imminent or life threatening deterioration. I spent greater than 30 minutes of discontinuous time evaluating the patient,delivering critical care at the bedside, discussing and evaluating pertinent data with consultants. Critical care time does not include time spent performing separately billable procedures or teaching. Total time spent performing critical care was 90 minutes. Discharge Plan Discharge Clinical Impression: Sepsis, Acute hypotension, Cellulitis of right leg, Open wound of right thigh, Atrial fibrillation with rapid ventricular response Patient Disposition: Admitted As Inpatient Interventions: Admission Worksheet (ED) Last Done: 09/28/24 18:46 Discharge Date/Time: 09/28/24 19:02
[2024-09-28 15:18] LABS: C Reactive Protein 21.26 mg/dL (< or = 0.50)
[2024-09-28] MEDS: Piperacillin Sodium/Tazobactam 4.5 GM in 0.9 % Sodium Chloride 100 ML IV (15:18)
[2024-09-28] MEDS: LACTATED RINGERS 2367 ML IV (15:18)
[2024-09-28] MEDS: Acetaminophen 325 MG TABLET 975 MG PO (15:18)
--- NOTE | 2024-09-28 15:27 | MHC.EDTECH ---
This pct assumed care of Patient at 1500 ,vitals taken ,Patient belongings list done ,Patient resting quietly in bed ,Patient family member at bedside .
[2024-09-28 15:51] LABS: Erythrocyte Sedimentation Rate 39 MM/HR (0-20)
[2024-09-28] MEDS: vancomycin/NS 2,000 MG/500 ML PLAST..BAG 250 MG IV (15:54)
[2024-09-28 16:38] LABS: Reflex Lactate? Lactic Acid Added
[2024-09-28] MEDS: Hydrocortisone Sod Succ/PF 100 MG VIAL IVPUSH (16:49)
[2024-09-28] MEDS: Norepinephrine Bitartrate/D5W 8 MG/250 ML PLAST..BAG 7.4 MG IVCONT (16:51)
--- NOTE | 2024-09-28 16:59 | PHA.PROG ---
Admission Date/Time: September 28, 2024 16:41 Indication: Sepsis Weight in k.9 kg Serum Creatinine - Last 168 Hours 09/28/24 14:32 Creatinine 2.31 H Estimated CrCl and GFR - Last 168 Hours 09/28/24 14:32 Estim Creat Clear Calc 18.0 Estimated GFR 20 Vancomycin Loading Dose: 2,000mg Current Vancomycin Dosing Regimen: 750mg q24h Vancomycin Monitoring using AUC goal of 400 - 600 range with trough as surrogate marker: 578 q24h, with predicted AUC 578, predicted trough 20.3 Date and Time for next Vancomycin Level to be drawn: 09/29 @ 1400 Pharmacist Comments on Vancomycin Plan: Pt has very poor renal function. Drawing trough after load before next dose due to renal function. Originally intended to start dosing at 500mg q24h, but predicted AUC was below goal at 390, and predicted trough was 13.7. Doing dose, trough, dose based on poor renal function. Vancomycin dosing will take advantage of AimWith as a clinical decision support tool that uses Bayesian modeling to calculate individual patient's pharmacokinetic parameters and forecast the patient's drug concentration time course with the target goal AUC 24 range of 400 - 600 mg/L/hr.
--- NOTE | 2024-09-28 17:31 | PHA.MEDREC ---
Pharmacy Consult ? Medication Reconciliation Pharmacy has completed the medication reconciliation, utilized list from [facility].
--- NOTE | 2024-09-28 18:04 | MHC.EDTECH ---
1800 rounding done ,vitals taken ,Patient was soiled ,care given ,Patient was reposition and boosted up in bed ,Patient awake and resting with eyes closed ,Plan of care continue .
--- NOTE | 2024-09-28 19:30 | P.HPCC_ITS ---
History of Present Illness Date of Service: 09/28/24 Attending physician on admission: Thomas Woods Chief Complaint: Acute Septic Shock, RLE Cellulitis ?78-year-old female with underlying history of chronic right hip wound, chronic kidney disease stage 3, hypertension, atrial fibrillation currently on Eliquis, obstructive sleep apnea, COPD, who is admitted and discharged from this hospital for 10 days in mid August due to septic shock in the setting of right chronic hip wound infection.? At the time she had developed atrial fibrillation with rapid ventricular response, she had require ICU admission her hemodynamic stabilization placed on Levophed and phenylephrine, subsequently patient was discharged with doxycycline and Augmentin which she finished at the end of August. The pt presented to the emergency room today with complaints of malaise, fever, chills and a right lower extremity redness that has developed over the past 2 days.? The emergency room her workup showed the patient was tachycardic at 131 beats per minute, febrile at 103.8 F although she was normotensive; a white count over 17,000; H and H 9.6 and 29.4 respectively, platelets 201, no left shift, sodium 134, potassium 3.8, chloride 102, carbon dioxide 21, anion gap 15, BUN 29, creatinine 2.31 (1.1) lactic acid 2.1, improved to 2.0, albumin 3.4.? CRP 21.26. ? EKG to my view shows atrial fibrillation with rapid ventricular response rate of 130.? No ST elevations, no ST depressions.? T3 0 8.? This was compared to study from August of this year. ?No images. ?and evidence of end-organ damage with a new onset acute kidney injury on chronic kidney disease. ??Patient was treated with vancomycin and Zosyn, she was given 30 mL per kg of IV fluids.? The patient deteriorated, become hypotensive despite of IVF, requiring vasopressor support. The patient will be admitted to the ICU. Currently no further or new complaints. Review of Systems 2 Review of Systems: As above, otherwise the patient denies any prior history of strokes, cold intolerance, migraine headaches, head trauma, had cataract surgery, ears or nose problems, no problems swallowing or with phonation, no thyroid disease, denies any history of chest pain, palpitations, coronary disease, cough, sputum production, pneumonia, bronchitis, denies abdominal pain, nausea, vomiting, diarrhea, abdominal surgeries, melena, hematochezia, hematemesis, hematuria, kidney stones, liver problems, immunocompromise state of any kind, no history of DVT or PE.? No recent traveling, no contact with sick people. FORMERLY [facility] Past Medical History Medical History (Updated 09/28/24 @ 19:32 by FADI Rizo) Thoracolumbar back pain Decreased GFR ANIYA (acute kidney injury) Self-care deficit in patient living alone Chronic wound Seroma of musculoskeletal structure after musculoskeletal system procedure New onset a-fib History of septic shock Hospital discharge follow-up Acute kidney injury superimposed on CKD Unspecified open wound, right hip, initial encounter Sleep disorder Abnormal skin growth Tubular adenoma of colon Ex-smoker Mitral annular calcification Aortic valve calcification Stasis edema of both lower extremities Family history of colon cancer Nail fungus Nocturnal hypoxemia Right bundle branch block Premature atrial contractions Hip pain, right Soft tissue infection Sepsis Septic shock Acute hypotension Oropharyngeal dysphagia Post-COVID chronic dyspnea Chronic GERD Peripheral vascular disease SOULEYMANE (obstructive sleep apnea) Wound, open, hip or thigh with complication Encounter for general adult medical examination with abnormal findings Preoperative cardiovascular examination Change in bowel movement Traumatic seroma of right thigh Postprocedural seroma of skin and subcutaneous tissue following other procedure Open wound of right hip and thigh Right rib fracture Menopause Pain management Pain management contract agreement Open wound of right lower leg with complication Shortness of breath Cough Edema Influenza A H1N1 infection Cellulitis of right leg Varicose veins of right lower extremity with inflammation Enterococcus faecalis infection Abscess Hip pain, right Obesity Lymphedema Morbid obesity due to excess calories Pre-op evaluation Colon cancer screening Medicare annual wellness visit, subsequent Family history of anesthesia complication Back pain Arthritis Renal calculi Post-influenza syndrome Tremor Peripheral vascular disease Right bundle branch block (RBBB) Aortic valve calcification Mitral annular calcification COPD (chronic obstructive pulmonary disease) Restrictive lung disease Depression, major, recurrent Hypertension, essential Family History Family History Father No problems noted. Mother Alzheimer's disease Maternal Grandmother Cancer Maternal Grandfather No problems noted. Paternal Grandfather No problems noted. Paternal Grandmother No problems noted. Maternal Aunt Cancer Sister Colon cancer Son No problems noted. Daughter No problems noted. Surgical History Surgical History S/P total right hip arthroplasty History of excision of lesion (10/20/23) History of total hip arthroplasty S/P gastric bypass History of surgery on lower extremity (01/25/23) History of surgery H/O colonoscopy History of cataract extraction History of bilateral tubal ligation History of tonsillectomy Social History Social History (Updated 09/28/24 @ 21:17 by Bairon Bradley RN) Household Members: None Housing: Other Housing Other:: Mobile home Are you a primary field care manager to a significant other at home: No Do you presently have visiting nurse or other home services: Yes (Wound Care) Alcohol intake: former Patient Tobacco Use Status: Former Tobacco user Tobacco use type: Cigarette Years Smoked: 40 Smoked in Last 30 Days: No e-Cigarette/Vaping Use: Currently Using Second Hand Smoke Exposure: No Use of substances other than those prescribed or required for medical reasons: No Currently Displaying Signs/Symptoms of Drug Intoxication Withdrawal: No Advance Directives: Yes Advance Directives on File: Yes Advance Directives Date on File: 03/13/15 Nutrition Risks: Surgical patient >75years Patient : No service: No Current occupational status: retired and other Current occupation: right handed Cognitive needs: No Hearing needs: No Vision needs: No Meds Allergies Allergy/AdvReac Type Severity Reaction Status Date / Time sucralfate [Carafate] Allergy Intermediate hives Verified 09/28/24 14:19 NSAIDS (Non-Steroidal AdvReac Intermediate cannot Verified 09/28/24 14:19 Anti-Inflamma take due to gastric bypass history Active Medications: Current Medications Norepinephrine Bitartrate (Levophed) 8 mg in 250 mls @ 0 mls/hr IVCONT .Q0M KENNEDY; Protocol Last Titration: 09/28/24 17:48 Dose: 0.27 mcg/kg/min, 39.94 mls/hr Piperacillin Sod/Tazobactam (Sod 2.25 gm/ Sodium Chloride) 50 mls @ 100 mls/hr IV Q6H KENNEDY Vancomycin HCl 750 mg/ Sodium (Chloride) 265 mls @ 265 mls/hr IV Q24H KENNEDY Albumin Human (Kedbumin 25 %) 100 mls @ 133.333 mls/hr IV Q1H KENNEDY Stop: 09/28/24 21:14 Lactated Ringer's (Lr) 1,000 mls @ 100 mls/hr IVCONT .Q10H [facility] Consult (Consult Rx Vancomycin Dosing) 1 each MISCELLANE DAILY PRN PRN Reason: Consult order Home Medications ?Medication ?Instructions ?Recorded ?Confirmed ?Last Taken ?Type ferrous sulfate 325 mg (65 mg 325 mg PO BEDTIME 04/02/20 09/28/24 Unknown History iron) tablet (Feosol) escitalopram oxalate 20 mg tablet 20 mg PO DAILY 07/30/20 09/28/24 01/24/23 History (Lexapro) lorazepam 0.5 mg tablet 0.25 mg PO DAILY PRN Anxiety 06/24/22 09/28/24 01/24/23 History primidone 50 mg tablet 50 mg PO BEDTIME 10/12/23 09/28/24 Unknown History alendronate 70 mg tablet (Fosamax) 70 mg PO [place] 08/17/24 09/28/24 Unknown History ascorbic acid (vitamin C) 250 mg 1,000 mg PO DAILY 09/08/24 09/28/24 Unknown History tablet cholecalciferol (vitamin D3) 50 50 mcg PO DAILY 09/22/24 09/28/24 Unknown History mcg (2,000 unit) capsule acetaminophen 325 mg tablet 650 mg PO Q6H PRN Pain 09/28/24 09/28/24 Unknown History aripiprazole 10 mg tablet 10 mg PO DAILY 09/28/24 09/28/24 Unknown History bupropion HCl 150 mg 24 hr tablet, 150 mg PO DAILY 09/28/24 09/28/24 Unknown History extended release bupropion HCl 300 mg 24 hr tablet, 300 mg PO DAILY 09/28/24 09/28/24 Unknown History extended release hydrochlorothiazide 25 mg tablet 25 mg PO DAILY 09/28/24 09/28/24 Unknown History omeprazole 40 mg capsule,delayed 40 mg PO DAILY@0630 09/28/24 09/28/24 Unknown History release Physical Exam 2 Vital Signs: Vital Signs: Last Vital Signs Temp 100.5 F H 09/28/24 18:41 Pulse 106 H 09/28/24 19:00 Resp 19 09/28/24 19:00 BP 105/68 09/28/24 19:00 Pulse Ox 96 09/28/24 19:00 O2 Del Method Room Air 09/28/24 19:00 BMI result Body Mass Index 36.4 Sepsis exam done at 19:15 General:? Alert oriented x3 no acute distress. No accessory muscle usage.? Following all commands. Skin:? Right lateral trochanteric hip area with a dime-sized hole due to chronic wound without purulent discharge, foul odor, unknown deepness.? Right lower extremity tender erythema in a geographical pattern involving the distal tibia, medial malleoli all the way up into the knee and proximal inner thigh in a nonblanching manner with significant hardness to touch.? Plantar calluses at the level of the 5th metatarsal is noted. ?Thin, Intact, no lesions, edema, erythema, clubbing or cyanosis.? No ulcers. HEENT:? Head is normocephalic, atraumatic, pupils equal. Buccal mucosa is dry. Neck is supple without lymphadenopathy. Cardiac:? Irregularly irregular 110 beats per minute, no murmurs, rubs, gallops.? Monitor device is noted on the left upper chest.? No JVD. Pulmonary:? Diminished lung sounds bilaterally fine expiratory wheezing bilaterally .? No crackles, rales or rhonchi. Abdomen:? Protuberant, positive bowel sounds in all 4 quadrants.? Soft, nontender, no rebound or guarding.? Musculoskeletal: ?Right hip and right lower extremity as described above. ?Moving all 4 extremities upon request a major joints, there is no crepitus or tenderness.? The strength is 5/5 bilaterally and throughout all 4 extremities.? There is 1+ pitting edema of the right lower extremity up to mid tibia slightly bigger than the left but no gross asymmetry, no calf tenderness., no calf tenderness.? Gait not assessed at this point. Neurologic:? As above.? No focal deficits noted. Vascular:? 2+ pulses upper and lower extremities distally at the radial and dorsal pedal Minnie's areas respectively..? Less than 2nd capillary refill of fingers and toes bilaterally upper and lower extremities Results Labs 09/29/24 04:48 09/29/24 04:48 Labs: Laboratory Results - last 24 hr 09/28/24 09/28/24 14:32 16:56 MCV 97.0 MCH 31.7 MCHC 32.7 RDW 13.7 Plt Count 201 MPV 8.8 L Immature Gran % (Auto) 1.8 H Neut % (Auto) 93.0 H Lymph % (Auto) 1.6 L [place] % (Auto) 3.4 Eos % (Auto) 0.0 Baso % (Auto) 0.2 Lymph # (Auto) 0.3 L [place] # (Auto) 0.6 Eos # (Auto) 0.0 Baso # (Auto) 0.0 Abs Immat Gran (auto) 0.31 H Absolute Neuts (auto) 15.9 H Absolute Nucleated RBC 0.000 Nucleated RBC % (auto) 0.0 Smear Tech's Comments VERIFIED ESR 39 H PT 20.8 H INR 1.8 H APTT 26.6 Anion Gap 15 Estim Creat Clear Calc 18.0 Estimated GFR 20 Random Glucose 113 Lactic Acid 2.1 H* Lactic Acid F/U @ 2Hr 2.0 Calcium 8.0 L Total Bilirubin 0.7 Direct Bilirubin 0.3 AST 21 ALT 6 Alkaline Phosphatase 63 C-Reactive Protein 21.26 H Total Protein 6.5 Albumin 3.4 L Assessment and Plan (1) Sepsis with acute renal failure and septic shock: Status: Acute Plan ASSESSMENT : 1. Acute septic shock 2. Right lower extremity cellulitis/erysipelas rule out early gas gangrene, abscess, right hip osteomyelitis 3. Atrial fibrillation with rapid ventricular response currently on Eliquis 4. Acute kidney injury on chronic kidney disease stage III; last baseline 1.07 5. Stable anemia of chronic disease 6. Hypoosmolar hypovolemic hyponatremia due to poor p.o. intake and volume deficits 7. Improved acute lactic and metabolic acidosis 8. Acute hypoalbuminemia 9. Morbid obesity with BMI of 36 10. Chronic R hip wound with foul odor r/o osteo PLAN OF CARE: The patient admitted to the ICU, frequent vital signs, I's and O's.? Patient does not have urinary retention, appears clinically dry, we will continue to give her a letter at 100 cc an hour despite her receiving 30 mL/kilos per sepsis protocol.? We will also give her albumin salt x2 bags at 133 mL/hour, continue with Levophed.? The above-mentioned right lower extremity area has been marked with surgical marker to ensure there is no expansion of the infection.? I am concerned that he has underlying abscess, gas collection therefore a right hip, right lower extremity CT without contrast will be ordered. ?Thus far controlling her rate is not an issue I am sure this will improve after further hydration, avoid nephrotoxins and adjust antibiotics to renal dose.? Repeat laboratories in the morning.? CPAP at night. CT of the right lower extremity including femur and lower leg reveals no evidence of osteomyelitis, abscess or gas.? There is however subcutaneous edema throughout the right thigh and lower extremity. ?Wound consult. GI PROPHYLAXIS:? IV ppi DVT PROPHYLAXIS:? On Eliquis addjust to CrCl Follow up Sepsis exam done at 0130 on 09/29/2024 General:? Alert oriented x3 no acute distress. No accessory muscle usage.? Following all commands. Skin: ?No changes from the above. Cardiac:? Irregularly irregular 90 beats per minute, no murmurs, rubs, gallops.? Pulmonary:? Diminished lung sounds bilaterally fine expiratory wheezing bilaterally .? No crackles, rales or rhonchi. Musculoskeletal: ?Was above, no changes. ? Neurologic:? As above.? No focal deficits noted. Vascular:? 2+ pulses upper and lower extremities distally at the radial and dorsal pedal Minnie's areas respectively..? Less than 2nd capillary refill of fingers and toes bilaterally upper and lower extremities Continue with the above-mentioned treatment.?Patient went from being anuric to producing but retaining urine, [place]aca cath placement ordered. On little vassopresor support compated to when she arrived, monitor closely, repeat labs in am, continue with IVF. One of the blood Cx was reported as G(+) cocci, on Vanco, await final culture results. Critical care time used for critical evaluation of this patient, diagnosis, treatment and coordination of care, review her records and documentation TOTAL CRITICAL CARE TIME?? 90 MIN . discussion and coordination with consultants, completely separate from any procedures performed. Patient's care was discussed in detail with Dr. Woods who is aware of all the above as well as the plan of care for this patient. Total time managing care of this patient today: 90 minutes.
[2024-09-28] MEDS: Lactated Ringers 1,000 ML 100 ML IVCONT (20:00)
[2024-09-28] MEDS: Albumin Human 25 % 100 ML 133.33 ML IV ×2 (20:18→21:12)
[2024-09-28] MEDS: Piperacillin Sodium/Tazobactam 2.25 GM in 0.9 % Sodium Chloride 50 ML IV (22:03)
[2024-09-29] VITALS (38 sets, daily range): BP systolic 86–123; BP diastolic 46–89; PULSE 86–127; RESP 14–34; TEMP 37–38.7; O2SAT 91–100
[2024-09-29] MEDS: Norepinephrine Bitartrate/D5W 8 MG/250 ML PLAST..BAG 16.27 MG IVCONT
--- NOTE | 2024-09-29 01:14 | HO.SKINPHOTO ---
Location: Right Lower Extremity Category: Redness/ Rash Location: Right Hip Category: Chronic wound
[2024-09-29] MEDS: Piperacillin Sodium/Tazobactam 2.25 GM in 0.9 % Sodium Chloride 50 ML IV ×4 (03:33→20:28)
[2024-09-29 04:37] LABS: Appearance Urine Cloudy; Color Urine Yellow; Glucose Urine UA Negative (Negative); Leukocyte Esterase Urine Large (3+) (Negative); Nitrite Urine Negative (Negative); PH 5.5 (5.0-9.0); UMIC TRIGGER UACC YES; Urine Blood Small (1+) (Negative); Urine Ketones Negative (Negative); Urine Protein 300 (3+) mg/dL (Neg-Trace)
[2024-09-29 04:53] LABS: VBG Base Excess -6.5 mmol/L; VBG HCO3 17 mmol/L (22-26); VBG pCO2 28 mmHg; VBG pH 7.39 (7.32-7.43); VBG pO2 45 mmHg
[2024-09-29 04:53] LABS: Bacteria Urine None Seen (None Seen); RBC Urine 0-2 /HPF (0-2); Squamous Epithelial Cell Urine 0-2 /HPF (0-2); UACC Culture Trigger YES; WBC Urine >50 /HPF (0-5)
[2024-09-29 04:57] LABS: Venous Blood Gas Refer to POC result
[2024-09-29 05:04] LABS: Hematocrit 27.7 % (37.0-47.0); Hemoglobin 8.7 g/dl (12.0-16.0); Mean Corpuscular HGB Conc 31.4 g/dl (31.0-35.0); Mean Corpuscular Hemoglobin 31.3 pg (27.0-33.0); Mean Corpuscular Volume 99.6 fL (80.0-98.0); Mean Platelet Volume 9.3 fL (9.4-12.3); Platelet Count 182 X10*3/uL (160-400); Red Blood Count 2.78 X10*6/uL (4.20-5.50); Red Cell Distribution Width 13.6 % (11.0-16.0); White Blood Count 17.7 X10*3/uL (4.8-10.8)
[2024-09-29 05:17] LABS: Albumin Level 3.4 g/dL (3.5-5.0); Anion Gap 17 (12-20); Blood Urea Nitrogen 34 mg/dL (9-16); Calcium 7.5 mg/dL (8.4-10.2); Carbon Dioxide 17 mmol/L (22-29); Chloride 107 mmol/L (96-108); Creatinine Clr Calc Pharmacy 16.5; Estimated Glomerular Filt Rate 19; Glucose Random 155 mg/dL (60-115); Magnesium 1.7 mg/dL (1.6-2.6); Phosphorus 4.6 mg/dL (2.7-4.5); Potassium 3.6 mmol/L (3.3-5.1); Sodium 137 mmol/L (135-145)
[2024-09-29 05:26] LABS: Band Neutrophils Percent 12 % (3-5); Lymphocytes Absolute Manual 0.4 X10*3/uL (1.2-4.9); Lymphocytes Percent Manual 2 % (20-40); Metamyelocytes Absolute 0.2 X10*3/uL; Metamyelocytes Percent 1 %; Monocytes Absolute Manual 0.4 X10*3/uL (0.1-1.2); Monocytes Percent Manual 2 % (2-11); Neutrophils Absolute Manual 16.8 X10*3/uL (2.0-8.3); Neutrophils Percent Manual 83 % (45-73)
[2024-09-29 05:29] LABS: Burr Cells 1+ (0-2) /OIF; Large Platelet PRESENT; Ovalocytes 1+ (5-14) /OIF; Platelet Estimate NORMAL (NORMAL); Platelet Morphology Comment NOTED; RBC Morphology NOTED; Toxic Vacuolation PRESENT
[2024-09-29] MEDS: Lactated Ringers 1,000 ML 100 ML IVCONT ×2 (05:46→14:14)
[2024-09-29] MEDS: Albumin Human 25 % 100 ML 133.33 ML IV ×2 (05:49→06:35)
[2024-09-29] MEDS: Apixaban 2.5 MG TABLET PO ×2 (08:11→20:22)
[2024-09-29] MEDS: Acetaminophen 325 MG TABLET 650 MG PO ×2 (09:22→16:51)
--- NOTE | 2024-09-29 11:02 | P.PNCC_ITS ---
Subjective Subjective Date of Service: 09/29/24 Interval History: 78-year-old lady with underlying history of chronic right hip want, followed by wound care, previously required wound VAC by General surgery, also COPD, hypertension, PVD, SOULEYMANE with recent admission for soft tissue infection to [facility] on 08/18/2024, now admitted 09/28/2024 with septic shock with likely soft tissue source requiring pressor support. Patient had CT of her hip wound that did not show underlying osteomyelitis or tissue gas. No events overnight. Pressor requirements are improving. Critical Care Time (minutes): 45 Physical Exam 2 Vital Signs: Vital Signs: Last Vital Signs Temp 99.9 F 09/29/24 11:00 Pulse 107 H 09/29/24 11:00 Resp 24 H 09/29/24 11:00 BP 94/50 L 09/29/24 11:00 Pulse Ox 94 09/29/24 11:00 O2 Del Method Room Air 09/29/24 11:00 BMI result Body Mass Index 34.8 Const: General: no acute distress, alert and awake Eyes: Sclerae: sclerae normal EOM: EOMs intact bilaterally Neck: Neck: Yes no lymphadenopathy, Yes trachea midline and Yes supple Resp: Effort & Inspection: normal respiratory effort and no respiratory distress Auscultation: clear to auscultation bilaterally Cardio: Rate: tachycardic Rhythm: regular rhythm Heart sounds: no gallops, no murmurs and no rubs GI: Palpation (GI): Soft to palpation and Other GI palpation findings present ( Nontender) Auscultation: normal bowel sounds Extrem: Other: Right lower extremity cellulitis and chronic hip wound. General: Yes no pedal edema, No clubbing and No cyanosis Objective Data Labs 09/29/24 04:48 09/29/24 04:48 Labs: Laboratory Results - last 24 hr 09/28/24 09/28/24 09/29/24 14:32 16:56 04:29 WBC 17.1 H RBC 3.03 L Hgb 9.6 L Hct 29.4 L MCV 97.0 MCH 31.7 MCHC 32.7 RDW 13.7 Plt Count 201 MPV 8.8 L Immature Gran % (Auto) 1.8 H Neut % (Auto) 93.0 H Lymph % (Auto) 1.6 L [place] % (Auto) 3.4 Eos % (Auto) 0.0 Baso % (Auto) 0.2 Lymph # (Auto) 0.3 L [place] # (Auto) 0.6 Eos # (Auto) 0.0 Baso # (Auto) 0.0 Abs Immat Gran (auto) 0.31 H Absolute Neuts (auto) 15.9 H Absolute Nucleated RBC 0.000 Nucleated RBC % (auto) 0.0 Neutrophils % (Manual) Band Neutrophils % Lymphocytes % (Manual) Monocytes % (Manual) Metamyelocytes % Abs Neuts (Manual) Lymphocytes # (Manual) Monocytes # (Manual) Metamyelocytes # Toxic Vacuolation Platelet Estimate Large Platelets Plt Morphology Comment RBC Morphology Ovalocytes [place] Cells Smear Tech's Comments VERIFIED ESR 39 H PT 20.8 H INR 1.8 H APTT 26.6 VBG pH VBG pCO2 VBG pO2 VBG HCO3 VBG O2 Saturation VBG Base Excess Sodium 134 L Potassium 3.8 Chloride 102 Carbon Dioxide 21 L Anion Gap 15 BUN 29 H Creatinine 2.31 H Estim Creat Clear Calc 18.0 Estimated GFR 20 Random Glucose 113 Lactic Acid 2.1 H* Lactic Acid F/U @ 2Hr 2.0 Calcium 8.0 L Phosphorus Magnesium Total Bilirubin 0.7 Direct Bilirubin 0.3 AST 21 ALT 6 Alkaline Phosphatase 63 C-Reactive Protein 21.26 H Total Protein 6.5 Albumin 3.4 L Urine Color Yellow Urine Appearance Cloudy Urine pH 5.5 Ur Specific [place] 1.010 Urine Protein 300 (3+) H Urine Glucose (UA) Negative Urine Ketones Negative Urine Blood Small (1+) H Urine Nitrite Negative Ur Leukocyte Esterase Large (3+) H Urine RBC 0-2 Urine WBC >50 H Ur Squamous Epith Cells 0-2 Urine Bacteria None Seen Hyaline Casts 6-10 09/29/24 09/29/24 04:48 04:50 WBC 17.7 H RBC 2.78 L Hgb 8.7 L Hct 27.7 L MCV 99.6 H MCH 31.3 MCHC 31.4 RDW 13.6 Plt Count 182 MPV 9.3 L Immature Gran % (Auto) Cancelled Neut % (Auto) Cancelled Lymph % (Auto) Cancelled [place] % (Auto) Cancelled Eos % (Auto) Cancelled Baso % (Auto) Cancelled Lymph # (Auto) Cancelled [place] # (Auto) Cancelled Eos # (Auto) Cancelled Baso # (Auto) Cancelled Abs Immat Gran (auto) Cancelled Absolute Neuts (auto) Cancelled Absolute Nucleated RBC 0.000 Nucleated RBC % (auto) 0.0 Neutrophils % (Manual) 83 H Band Neutrophils % 12 H Lymphocytes % (Manual) 2 L Monocytes % (Manual) 2 Metamyelocytes % 1 Abs Neuts (Manual) 16.8 H Lymphocytes # (Manual) 0.4 L Monocytes # (Manual) 0.4 Metamyelocytes # 0.2 Toxic Vacuolation PRESENT Platelet Estimate NORMAL Large Platelets PRESENT Plt Morphology Comment NOTED RBC Morphology NOTED Ovalocytes 1+ (5-14) [place] Cells 1+ (0-2) Smear Tech's Comments ESR PT INR APTT VBG pH 7.39 VBG pCO2 28 VBG pO2 45 VBG HCO3 17 L VBG O2 Saturation 78.0 VBG Base Excess -6.5 Sodium 137 Potassium 3.6 Chloride 107 Carbon Dioxide 17 L Anion Gap 17 BUN 34 H Creatinine 2.47 H Estim Creat Clear Calc 16.5 Estimated GFR 19 Random Glucose 155 H Lactic Acid Lactic Acid F/U @ 2Hr Calcium 7.5 L D Phosphorus 4.6 H Magnesium 1.7 Total Bilirubin Direct Bilirubin AST ALT Alkaline Phosphatase C-Reactive Protein Total Protein Albumin 3.4 L Urine Color Urine Appearance Urine pH Ur Specific [place] Urine Protein Urine Glucose (UA) Urine Ketones Urine Blood Urine Nitrite Ur Leukocyte Esterase Urine RBC Urine WBC Ur Squamous Epith Cells Urine Bacteria Hyaline Casts Microbiology Microbiology Results: Microbiology 09/28/24 15:24 Heel, Right Gram Stain - Final 09/28/24 14:33 Blood - Venous Blood Culture - Preliminary Prelim: GPC Gram Stain only 09/28/24 14:32 Blood - Venous Blood Culture - Preliminary Prelim: GPC Gram Stain only Progress Note: A&P Assessment and plan (1) Sepsis with acute renal failure and septic shock: Status: Acute (2) Cellulitis of right leg: Status: Acute (3) CKD stage 3a, GFR 45-59 ml/min: Status: Acute (4) Atrial fibrillation with rapid ventricular response: Status: Acute Plan Assessment: 78-year-old lady with underlying COPD, PVD, chronic right hip wound admitted with septic shock with likely soft tissue source. Plan: Neuro: No acute issues. Cardiac: Septic shock, continue to titrate off pressor support as tolerated. Underlying PVD Pulmonary: No acute issues. Underlying COPD and SOULEYMANE. Renal: Acute renal failure likely secondary to ATN from septic shock. Non oliguric. Continue to monitor renal indices and urine output. Endo: No acute issues. GI: No acute issues. ID: Septic shock with likely soft tissue source. CT chest with no evidence of osteomyelitis or tissue gas. Continue broad-spectrum antibiotics. Gram stain positive for Streptococcus. Heme/Onc: No acute issues. Psych: No acute issues. Miscellaneous: No acute issues. Prophylaxis: Apixaban Diet: Regular Critical care time spent: 45 minutes Quality Stroke Does the patient have a stroke diagnosis?: No VTE Prior VTE?: No VTE Risk Level:: Medical - moderate - high VTE Device Contraindication: Treatment Not Indicated VTE Drug Contraindication: Treatment Not Indicated
[2024-09-29] MEDS: fentaNYL citrate/PF 100 MCG/2 ML VIAL 50 MCG IVPUSH (14:08)
[2024-09-29 14:19] LABS: Vancomycin Random 15.7 mcg/mL (15-20)
[2024-09-29] MEDS: vancomycin HCL 500 MG in 0.9 % Sodium Chloride 100 ML 110 MG IV (15:40)
[2024-09-29] MEDS: Furosemide 40 MG/4 ML VIAL IVPUSH (18:26)
[2024-09-29] MEDS: Potassium Chloride Packet 20 MEQ PACKET 60 MEQ PO (18:26)
[2024-09-29] MEDS: Metoprolol Tartrate 5 MG/5 ML VIAL IVPUSH (20:24)
[2024-09-29] MEDS: Norepinephrine Bitartrate/D5W 8 MG/250 ML PLAST..BAG 19.23 MG IVCONT (20:31)
[2024-09-30] VITALS (36 sets, daily range): BP systolic 88–117; BP diastolic 50–83; PULSE 22–132; RESP 12–30; TEMP 36.5–37.8; O2SAT 92–99; BMI 35.4
[2024-09-30] MEDS: Piperacillin Sodium/Tazobactam 2.25 GM in 0.9 % Sodium Chloride 50 ML IV ×4 (02:45→20:26)
[2024-09-30 05:03] LABS: VBG Base Excess -1.1 mmol/L; VBG HCO3 22 mmol/L (22-26); VBG pCO2 32 mmHg; VBG pH 7.44 (7.32-7.43); VBG pO2 58 mmHg
[2024-09-30 05:19] LABS: Basophils Absolute Auto 0.1 X10*3/uL (0.0-0.2); Basophils Percent Auto 0.3 % (0-2); Eosinophils Absolute Auto 0.1 X10*3/uL (0.0-0.4); Eosinophils Percent Auto 0.7 % (0-4); Hematocrit 27.7 % (37.0-47.0); Hemoglobin 8.9 g/dl (12.0-16.0); Imm Gran Pct Auto 2.5 % (0.0-0.4); Lymphocytes Absolute Auto 0.6 X10*3/uL (1.2-4.9); Lymphocytes Percent Auto 3.1 % (20-40); MANUAL DIFF FLAG SCAN; Mean Corpuscular HGB Conc 32.1 g/dl (31.0-35.0); Mean Corpuscular Hemoglobin 30.8 pg (27.0-33.0); Mean Corpuscular Volume 95.8 fL (80.0-98.0); Mean Platelet Volume 9.5 fL (9.4-12.3); Monocytes Absolute Auto 0.5 X10*3/uL (0.1-1.2); Monocytes Percent Auto 2.4 % (2-11); Neutrophils Absolute Auto 17.9 x10*3/uL (2.0-8.3); Platelet Count 222 X10*3/uL (160-400); Red Blood Count 2.89 X10*6/uL (4.20-5.50); SCAN SMEAR FLAG 1; White Blood Count 19.7 X10*3/uL (4.8-10.8)
[2024-09-30 05:37] LABS: Albumin Level 3.5 g/dL (3.5-5.0); Anion Gap 16 (12-20); Blood Urea Nitrogen 34 mg/dL (9-16); Calcium 7.9 mg/dL (8.4-10.2); Carbon Dioxide 19 mmol/L (22-29); Chloride 108 mmol/L (96-108); Creatinine Clr Calc Pharmacy 18.4; Estimated Glomerular Filt Rate 22; Glucose Random 121 mg/dL (60-115); Magnesium 1.7 mg/dL (1.6-2.6); Phosphorus 3.2 mg/dL (2.7-4.5); Potassium 3.7 mmol/L (3.3-5.1); Sodium 139 mmol/L (135-145)
[2024-09-30 06:22] LABS: SLIDE REVIEW VERIFIED
[2024-09-30 07:15] LABS: Venous Blood Gas Refer to POC result
[2024-09-30] MEDS: Apixaban 2.5 MG TABLET PO ×2 (08:08→10:16)
--- NOTE | 2024-09-30 09:58 | PM.CCPN ---
Subjective Subjective Date of Service: 09/30/24 Interval History: 78-year-old lady with underlying history of chronic right hip want, followed by wound care, previously required wound VAC by General surgery, also COPD, hypertension, PVD, SOULEYMANE with recent admission for soft tissue infection to [facility] on 08/18/2024, now admitted 09/28/2024 with septic shock with likely soft tissue source requiring pressor support. Patient had CT of her hip wound that did not show underlying osteomyelitis or tissue gas. Blood cultures positive for Streptococcus and Staphylococcus. No events overnight. Critical Care Time (minutes): 45 Physical Exam Vital Signs: Vital Signs: Last Vital Signs Temp 99.5 F 09/30/24 09:00 Pulse 115 H 09/30/24 09:00 Resp 20 09/30/24 09:00 BP 102/55 L 09/30/24 09:00 Pulse Ox 97 09/30/24 09:00 O2 Del Method Room Air 09/30/24 09:00 BMI result Body Mass Index 35.4 Const: General: no acute distress, alert and awake Eyes: Sclerae: sclerae normal EOM: EOMs intact bilaterally Neck: Neck: Yes no lymphadenopathy, Yes trachea midline and Yes supple Resp: Effort & Inspection: normal respiratory effort and no respiratory distress Auscultation: clear to auscultation bilaterally Cardio: Rate: regular rate Rhythm: regular rhythm Heart sounds: no gallops, no murmurs and no rubs GI: Palpation (GI): Soft to palpation and Other GI palpation findings present ( Nontender) Auscultation: normal bowel sounds Extrem: Other: Right hip wound and lower extremity cellulitis General: No clubbing, No cyanosis and Yes edema (1+ bilateral) Objective Data Labs 09/30/24 04:59 09/30/24 04:59 Labs: Laboratory Results - last 24 hr 09/29/24 09/30/24 14:01 04:59 WBC 19.7 H RBC 2.89 L Hgb 8.9 L Hct 27.7 L MCV 95.8 MCH 30.8 MCHC 32.1 RDW 14.0 Plt Count 222 MPV 9.5 Immature Gran % (Auto) 2.5 H Neut % (Auto) 91.0 H Lymph % (Auto) 3.1 L [place] % (Auto) 2.4 Eos % (Auto) 0.7 Baso % (Auto) 0.3 Lymph # (Auto) 0.6 L [place] # (Auto) 0.5 Eos # (Auto) 0.1 Baso # (Auto) 0.1 Abs Immat Gran (auto) 0.50 H Absolute Neuts (auto) 17.9 H Absolute Nucleated RBC 0.000 Nucleated RBC % (auto) 0.0 Smear Tech's Comments VERIFIED VBG pH 7.44 H VBG pCO2 32 VBG pO2 58 VBG HCO3 22 VBG O2 Saturation 89.0 VBG Base Excess -1.1 Sodium 139 Potassium 3.7 Chloride 108 Carbon Dioxide 19 L Anion Gap 16 BUN 34 H Creatinine 2.21 H Estim Creat Clear Calc 18.4 Estimated GFR 22 Random Glucose 121 H Calcium 7.9 L Phosphorus 3.2 Magnesium 1.7 Albumin 3.5 Random Vancomycin 15.7 Microbiology Microbiology Results: Microbiology 09/28/24 15:24 Hip Right Gram Stain - Final 09/28/24 15:24 Hip Right Routine Culture - Preliminary Streptococcus pyogenes (Grp A) Staphylococcus aureus 09/28/24 14:33 Blood - Venous Blood Culture - Preliminary Prelim: GPC Gram Stain only 09/28/24 14:32 Blood - Venous Blood Culture - Preliminary Prelim: GPC Gram Stain only Progress Note: A&P Assessment and plan (1) Streptococcal bacteremia: Status: Acute (2) Bacteremia due to Staphylococcus aureus: Status: Acute (3) Atrial fibrillation: Status: Acute (4) Acute kidney injury superimposed on CKD: Status: Acute Plan Assessment: 78-year-old lady with underlying COPD, PVD, chronic right hip wound admitted with septic shock with likely soft tissue source. Plan: Neuro: No acute issues. Cardiac: Septic shock, continue to titrate off pressor support as tolerated. Underlying PVD and AFib. Pulmonary: No acute issues. Underlying COPD and SOULEYMANE. Renal: Acute renal failure likely secondary to ATN from septic shock, improved. Non oliguric. Continue to monitor renal indices and urine output. Endo: No acute issues. GI: No acute issues. ID: Streptococcal/staphylococcal bacteremia and septic shock with likely soft tissue source. CT chest with no evidence of osteomyelitis or tissue gas. Continue broad-spectrum antibiotics. Heme/Onc: No acute issues. Psych: No acute issues. Miscellaneous: No acute issues. Prophylaxis: Apixaban Diet: Regular Critical care time spent: 45 minutes Quality Stroke Does the patient have a stroke diagnosis?: No VTE Prior VTE?: No VTE Risk Level:: Medical - moderate - high VTE Device Contraindication: Treatment Not Indicated VTE Drug Contraindication: Treatment Not Indicated
[2024-09-30 15:07] LABS: Vancomycin Random 14.1 mcg/mL (15-20)
[2024-09-30] MEDS: vancomycin HCL 750 MG in 0.9 % Sodium Chloride 250 ML 265 MG IV (15:44)
[2024-09-30] MEDS: Acetaminophen 325 MG TABLET 650 MG PO (16:43)
[2024-09-30] MEDS: Phentolamine Mesylate 5 MG VIAL 10 MG SUBCUT (17:06)
--- NOTE | 2024-09-30 18:07 | PC.NURSE ---
Assumed care at 0700- Pt. weaned off norepinephrine gtt per JUL. upon cessation of the gtt, peripheral IV flushed with pain reported at IV site. Small red puffy area apprecitated. Warm pack applied and MD notified- 10 mg phentolamine SubQ given around extravasation site. see photo below post phentolamine administration. Pt. A&ox4, intermittent c/o headache, PRN tylenol given per JUL. Afib on tele, HR 110s, intermittently reaching 140s-160s with activity, non-sustained. Benitez remains in place draining cyu. RLE remains red, but looks improved per pt- redness continues to recede from marked area. Q2 repositioning performed. Family at bedside, updated on plan of care by this RN. Plan of care ongoing.
[2024-09-30] MEDS: Apixaban 5 MG TABLET PO (20:26)
[2024-09-30] MEDS: Norepinephrine Bitartrate/D5W 8 MG/250 ML PLAST..BAG 7.4 MG IVCONT (20:27)
[2024-09-30] MEDS: Metoprolol Tartrate 2.5 MG in 0.9 % Sodium Chloride 50 ML 210 MG IVPUSH (23:07)
[2024-09-30 23:19] LABS: MANUAL DIFF FLAG NO
[2024-09-30 23:20] LABS: Basophils Percent Auto 0.3 % (0-2); Eosinophils Absolute Auto 0.6 X10*3/uL (0.0-0.4); Eosinophils Percent Auto 4.1 % (0-4); Hematocrit 29.1 % (37.0-47.0); Hemoglobin 9.7 g/dl (12.0-16.0); Imm Gran Abs Auto 0.08 X10*3/uL (0.00-0.03); Imm Gran Pct Auto 0.5 % (0.0-0.4); Lymphocytes Absolute Auto 1.3 X10*3/uL (1.2-4.9); Lymphocytes Percent Auto 8.6 % (20-40); Mean Corpuscular HGB Conc 33.3 g/dl (31.0-35.0); Mean Corpuscular Hemoglobin 31.7 pg (27.0-33.0); Mean Corpuscular Volume 95.1 fL (80.0-98.0); Mean Platelet Volume 8.7 fL (9.4-12.3); Monocytes Absolute Auto 0.5 X10*3/uL (0.1-1.2); Monocytes Percent Auto 3.5 % (2-11); Neutrophils Absolute Auto 12.4 x10*3/uL (2.0-8.3); Platelet Count 233 X10*3/uL (160-400); Red Blood Count 3.06 X10*6/uL (4.20-5.50); Red Cell Distribution Width 14.1 % (11.0-16.0); White Blood Count 14.9 X10*3/uL (4.8-10.8)
[2024-09-30] MEDS: Metoprolol Tartrate 5 MG/5 ML VIAL IVPUSH (23:59)
[2024-10-01] VITALS (31 sets, daily range): BP systolic 91–122; BP diastolic 47–75; PULSE 75–119; RESP 12–25; TEMP 36.1–37; O2SAT 91–100; BMI 35.2
[2024-10-01] MEDS: dilTIAZem HCL 125 MG in 0.9 % Sodium Chloride 100 ML IVCONT (01:49)
[2024-10-01] MEDS: dilTIAZem HCL 50 MG/10 ML VIAL 10 MG IVPUSH (01:49)
[2024-10-01] MEDS: Piperacillin Sodium/Tazobactam 2.25 GM in 0.9 % Sodium Chloride 50 ML IV ×2 (04:00→08:17)
[2024-10-01 05:07] LABS: VBG HCO3 24 mmol/L (22-26); VBG pCO2 40 mmHg; VBG pH 7.39 (7.32-7.43); VBG pO2 50 mmHg
[2024-10-01 05:33] LABS: Basophils Absolute Auto 0.1 X10*3/uL (0.0-0.2); Basophils Percent Auto 0.4 % (0-2); Eosinophils Absolute Auto 0.5 X10*3/uL (0.0-0.4); Eosinophils Percent Auto 3.8 % (0-4); Hematocrit 29.9 % (37.0-47.0); Hemoglobin 9.4 g/dl (12.0-16.0); Imm Gran Abs Auto 0.06 X10*3/uL (0.00-0.03); Imm Gran Pct Auto 0.4 % (0.0-0.4); Lymphocytes Percent Auto 7.5 % (20-40); MANUAL DIFF FLAG NO; Mean Corpuscular HGB Conc 31.4 g/dl (31.0-35.0); Mean Corpuscular Hemoglobin 30.9 pg (27.0-33.0); Mean Corpuscular Volume 98.4 fL (80.0-98.0); Mean Platelet Volume 9.6 fL (9.4-12.3); Monocytes Absolute Auto 0.5 X10*3/uL (0.1-1.2); Monocytes Percent Auto 3.4 % (2-11); Neutrophils Absolute Auto 11.3 x10*3/uL (2.0-8.3); Neutrophils Percent Auto 84.5 % (45-73); Platelet Count 252 X10*3/uL (160-400); Red Blood Count 3.04 X10*6/uL (4.20-5.50); Red Cell Distribution Width 14.1 % (11.0-16.0); White Blood Count 13.4 X10*3/uL (4.8-10.8)
[2024-10-01 05:50] LABS: Albumin Level 3.3 g/dL (3.5-5.0); Anion Gap 15 (12-20); Blood Urea Nitrogen 34 mg/dL (9-16); Carbon Dioxide 21 mmol/L (22-29); Chloride 108 mmol/L (96-108); Creatinine Clr Calc Pharmacy 21.7; Estimated Glomerular Filt Rate 26; Glucose Random 114 mg/dL (60-115); Magnesium 1.8 mg/dL (1.6-2.6); Phosphorus 2.8 mg/dL (2.7-4.5); Potassium 3.2 mmol/L (3.3-5.1); Sodium 141 mmol/L (135-145)
--- NOTE | 2024-10-01 06:12 | PC.NURSE ---
bernarda removed 0600 dtv 1200, call polanco within reach, plan of care continues.
[2024-10-01] MEDS: Potassium Chloride Packet 20 MEQ PACKET 40 MEQ PO (08:16)
[2024-10-01] MEDS: Apixaban 5 MG TABLET PO ×2 (08:17→20:04)
--- NOTE | 2024-10-01 10:39 | PM.CCPN ---
Subjective Subjective Date of Service: 10/01/24 Interval History: 78-year-old lady with underlying history of chronic right hip want, followed by wound care, previously required wound VAC by General surgery, also COPD, hypertension, PVD, SOULEYMANE with recent admission for soft tissue infection to [facility] on 08/18/2024, now admitted 09/28/2024 with septic shock with likely soft tissue source requiring pressor support. Patient had CT of her hip wound that did not show underlying osteomyelitis or tissue gas. Blood cultures positive for Streptococcus group A and MSSA. No events overnight. Critical Care Time (minutes): 45 Physical Exam Vital Signs: Vital Signs: Last Vital Signs Temp 97.5 F 10/01/24 08:00 Pulse 79 10/01/24 10:00 Resp 20 10/01/24 10:00 BP 96/57 L 10/01/24 10:00 Pulse Ox 92 10/01/24 10:00 O2 Del Method Room Air 10/01/24 10:00 BMI result Body Mass Index 35.2 Const: General: no acute distress and alert Nutritional Appearance: not obese Orientation/consciousness: Other orientation findings ( oriented) HEENT: Head: Yes atraumatic Eyes: General: appearance normal, both eyes and all related structures Sclerae: sclerae normal EOM: EOMs intact bilaterally Neck: Neck: Yes supple Lymphatic: no lymphadenopathy noted Resp: Effort & Inspection: normal respiratory effort and no use of accessory muscles Auscultation: clear to auscultation bilaterally Cardio: Rate: regular rate Rhythm: regular rhythm Heart sounds: no gallops, no murmurs and no rubs Skin: General skin exam: other ( warm) Extrem: Other: Right hip want and right lower extremity cellulitis General: No clubbing, No cyanosis and No edema Objective Data Labs 10/01/24 05:01 10/01/24 05:01 Labs: Laboratory Results - last 24 hr 09/30/24 09/30/24 10/01/24 14:46 23:14 05:01 WBC 14.9 H 13.4 H RBC 3.06 L 3.04 L Hgb 9.7 L 9.4 L Hct 29.1 L 29.9 L MCV 95.1 98.4 H MCH 31.7 30.9 MCHC 33.3 31.4 RDW 14.1 14.1 Plt Count 233 252 MPV 8.7 L 9.6 Immature Gran % (Auto) 0.5 H 0.4 Neut % (Auto) 83.0 H 84.5 H Lymph % (Auto) 8.6 L 7.5 L [place] % (Auto) 3.5 3.4 Eos % (Auto) 4.1 H 3.8 Baso % (Auto) 0.3 0.4 Lymph # (Auto) 1.3 1.0 L [place] # (Auto) 0.5 0.5 Eos # (Auto) 0.6 H 0.5 H Baso # (Auto) 0.0 0.1 Abs Immat Gran (auto) 0.08 H 0.06 H Absolute Neuts (auto) 12.4 H 11.3 H Absolute Nucleated RBC 0.000 0.000 Nucleated RBC % (auto) 0.0 0.0 VBG pH VBG pCO2 VBG pO2 VBG HCO3 VBG O2 Saturation VBG Base Excess Sodium 141 Potassium 3.2 L Chloride 108 Carbon Dioxide 21 L Anion Gap 15 BUN 34 H Creatinine 1.89 H Estim Creat Clear Calc 21.7 Estimated GFR 26 Random Glucose 114 Calcium 8.0 L Phosphorus 2.8 Magnesium 1.8 Albumin 3.3 L Random Vancomycin 14.1 L 10/01/24 05:03 WBC RBC Hgb Hct MCV MCH MCHC RDW Plt Count MPV Immature Gran % (Auto) Neut % (Auto) Lymph % (Auto) [place] % (Auto) Eos % (Auto) Baso % (Auto) Lymph # (Auto) [place] # (Auto) Eos # (Auto) Baso # (Auto) Abs Immat Gran (auto) Absolute Neuts (auto) Absolute Nucleated RBC Nucleated RBC % (auto) VBG pH 7.39 VBG pCO2 40 VBG pO2 50 VBG HCO3 24 VBG O2 Saturation 83.0 VBG Base Excess 0.0 Sodium Potassium Chloride Carbon Dioxide Anion Gap BUN Creatinine Estim Creat Clear Calc Estimated GFR Random Glucose Calcium Phosphorus Magnesium Albumin Random Vancomycin Microbiology Microbiology Results: Microbiology 09/28/24 15:24 Hip Right Gram Stain - Final 09/28/24 15:24 Hip Right Routine Culture - Final Streptococcus pyogenes (Grp A) Staphylococcus aureus 09/28/24 14:33 Blood - Venous Blood Culture - Preliminary Streptococcus pyogenes (Grp A) 09/28/24 14:32 Blood - Venous Blood Culture - Preliminary Streptococcus pyogenes (Grp A) 09/29/24 Unknown Urine clean catch - Clean Catch Midstream Urine Culture - Final No growth. Progress Note: A&P Assessment and plan (1) MSSA bacteremia: Status: Acute (2) Streptococcal bacteremia: Status: Acute (3) Sepsis with acute renal failure and septic shock: Status: Acute (4) Atrial fibrillation: Status: Acute Plan Assessment: 78-year-old lady with underlying COPD, PVD, chronic right hip wound admitted with septic shock with likely soft tissue source. Plan: Neuro: No acute issues. Cardiac: Septic shock, continue to titrate off pressor support as tolerated. Underlying PVD and AFib. Pulmonary: No acute issues. Underlying COPD and SOULEYMANE. Renal: Acute renal failure likely secondary to ATN from septic shock, improving. Non oliguric. Continue to monitor renal indices and urine output. Endo: No acute issues. GI: No acute issues. ID: Group a streptococcal and MSSA bacteremia and septic shock with likely soft tissue source. CT chest with no evidence of osteomyelitis or tissue gas. Antibiotics changed to ceftriaxone. Heme/Onc: No acute issues. Psych: No acute issues. Miscellaneous: No acute issues. Prophylaxis: Apixaban Diet: Regular Critical care time spent: 45 minutes Quality Stroke Does the patient have a stroke diagnosis?: No VTE Prior VTE?: No VTE Risk Level:: Medical - moderate - high VTE Device Contraindication: Treatment Not Indicated VTE Drug Contraindication: Treatment Not Indicated
[2024-10-01] MEDS: Norepinephrine Bitartrate/D5W 8 MG/250 ML PLAST..BAG 8.88 MG IVCONT (11:13)
[2024-10-01] MEDS: Digoxin 0.5 MG/2 ML AMPUL 0.25 MG IVPUSH ×3 (11:14→23:07)
[2024-10-01] MEDS: cefTRIAXone sodium 2 GM VIAL IVPUSH (11:14)
[2024-10-01 11:38] LABS: Venous Blood Gas Refer to POC result
--- NOTE | 2024-10-01 18:23 | PC.NURSE ---
Assumed care at 0700- norepinephrine gtt weaned off per JUL. Pt. A&Ox4, calm cooperative. Afib on tele, HR ranging from 70s-110s- digoxin given per MAR. O2 sats >92% on RA. 1 assist OOB, voiding on bedside commode, up in recliner during this shift. Plan of care ongoing.
[2024-10-01] MEDS: Acetaminophen 325 MG TABLET 650 MG PO (20:04)
[2024-10-01] MEDS: Albumin Human 25 % 100 ML 133.33 ML IV ×2 (20:45→21:41)
[2024-10-02] VITALS (17 sets, daily range): BP systolic 107–130; BP diastolic 48–71; PULSE 79–107; RESP 12–20; TEMP 36.2–36.6; O2SAT 93–100; BMI 33.6
[2024-10-02 04:45] LABS: MANUAL DIFF FLAG NO
[2024-10-02 04:46] LABS: VBG Base Excess 1.1 mmol/L; VBG HCO3 24 mmol/L (22-26); VBG pCO2 34 mmHg; VBG pH 7.45 (7.32-7.43); VBG pO2 44 mmHg
[2024-10-02 04:46] LABS: Basophils Percent Auto 0.4 % (0-2); Eosinophils Absolute Auto 0.4 X10*3/uL (0.0-0.4); Eosinophils Percent Auto 7.4 % (0-4); Hematocrit 26.9 % (37.0-47.0); Hemoglobin 8.7 g/dl (12.0-16.0); Imm Gran Abs Auto 0.02 X10*3/uL (0.00-0.03); Imm Gran Pct Auto 0.4 % (0.0-0.4); Lymphocytes Absolute Auto 1.5 X10*3/uL (1.2-4.9); Mean Corpuscular HGB Conc 32.3 g/dl (31.0-35.0); Mean Corpuscular Hemoglobin 31.3 pg (27.0-33.0); Mean Corpuscular Volume 96.8 fL (80.0-98.0); Mean Platelet Volume 8.8 fL (9.4-12.3); Monocytes Absolute Auto 0.3 X10*3/uL (0.1-1.2); Monocytes Percent Auto 5.7 % (2-11); Neutrophils Absolute Auto 3.4 x10*3/uL (2.0-8.3); Neutrophils Percent Auto 60.1 % (45-73); Platelet Count 228 X10*3/uL (160-400); Red Blood Count 2.78 X10*6/uL (4.20-5.50); Red Cell Distribution Width 14.1 % (11.0-16.0); White Blood Count 5.7 X10*3/uL (4.8-10.8)
[2024-10-02 04:52] LABS: Venous Blood Gas Refer to POC result
[2024-10-02 05:03] LABS: Alanine Aminotransferase 6 U/L (0-31); Albumin Level 3.4 g/dL (3.5-5.0); Alkaline Phosphatase 45 U/L (39-117); Anion Gap 12 (12-20); Aspartate Amino Transferase 10 U/L (5-31); Bilirubin Total 0.3 mg/dL (0.0-1.0); Blood Urea Nitrogen 32 mg/dL (9-16); Calcium 8.1 mg/dL (8.4-10.2); Carbon Dioxide 21 mmol/L (22-29); Chloride 112 mmol/L (96-108); Creatinine Clr Calc Pharmacy 25.6; Estimated Glomerular Filt Rate 31; Glucose Random 89 mg/dL (60-115); Magnesium 1.8 mg/dL (1.6-2.6); Potassium 3.3 mmol/L (3.3-5.1); Sodium 142 mmol/L (135-145); Total Protein 5.7 g/dL (6.5-8.0)
[2024-10-02] MEDS: Metoprolol Tartrate 25 MG TABLET PO ×2 (07:38→21:47)
[2024-10-02] MEDS: Apixaban 5 MG TABLET PO ×2 (07:39→21:47)
[2024-10-02] MEDS: cefTRIAXone sodium 2 GM VIAL IVPUSH (10:53)
--- NOTE | 2024-10-02 12:32 | PM.CCPN ---
Subjective Subjective Date of Service: 10/02/24 Interval History: Off Levophed support since yesterday Doing well, no new complaints this morning Critical Care Time (minutes): 35 Physical Exam Vital Signs: Vital Signs: Last Vital Signs Temp 97.8 F 10/02/24 08:00 Pulse 93 10/02/24 11:00 Resp 17 10/02/24 11:00 BP 117/60 10/02/24 11:00 Pulse Ox 100 10/02/24 11:00 O2 Del Method Room Air 10/02/24 11:00 BMI result Body Mass Index 35.2 General: Elderly lady Not in any acute distress, sitting on the chair Nutritional Appearance: well nourished and overweight Eyes: appearance normal, both eyes and all related structures; Alignment and Position: alignment normal and position normal Neck: No lymphadenopathy, no thyromegaly Resp: bilateral air entry equal, occasional added sounds present Cardio: Regular rate, regular rhythm; Heart sounds: S1 normal heart sound present and S2 normal heart sound present GI: soft, nontender, no guarding, no hepatosplenomegaly : bladder normal to inspection, bladder normal to palpation, no renal angle tenderness Skin: no rashes or lesions noted and elasticity normal Neuro: oriented to person, oriented to place, oriented to time and moves all extremities Objective Data Labs 10/02/24 04:30 10/02/24 04:30 Labs: Laboratory Results - last 24 hr 10/02/24 10/02/24 04:30 04:42 WBC 5.7 RBC 2.78 L Hgb 8.7 L Hct 26.9 L MCV 96.8 MCH 31.3 MCHC 32.3 RDW 14.1 Plt Count 228 MPV 8.8 L Immature Gran % (Auto) 0.4 Neut % (Auto) 60.1 Lymph % (Auto) 26.0 [place] % (Auto) 5.7 Eos % (Auto) 7.4 H Baso % (Auto) 0.4 Lymph # (Auto) 1.5 [place] # (Auto) 0.3 Eos # (Auto) 0.4 Baso # (Auto) 0.0 Abs Immat Gran (auto) 0.02 Absolute Neuts (auto) 3.4 Absolute Nucleated RBC 0.000 Nucleated RBC % (auto) 0.0 VBG pH 7.45 H VBG pCO2 34 VBG pO2 44 VBG HCO3 24 VBG O2 Saturation 81.0 VBG Base Excess 1.1 Sodium 142 Potassium 3.3 Chloride 112 H Carbon Dioxide 21 L Anion Gap 12 BUN 32 H Creatinine 1.60 H Estim Creat Clear Calc 25.6 Estimated GFR 31 Random Glucose 89 Calcium 8.1 L Phosphorus 3.0 Magnesium 1.8 Total Bilirubin 0.3 AST 10 ALT 6 Alkaline Phosphatase 45 Total Protein 5.7 L Albumin 3.4 L Microbiology Microbiology Results: Microbiology 09/30/24 10:44 Blood - Venous Blood Culture - Preliminary No growth after 24 hours. 09/30/24 10:44 Blood - Venous Blood Culture - Preliminary No growth after 24 hours. 09/28/24 14:32 Blood - Venous Blood Culture - Final Streptococcus pyogenes (Grp A) 09/28/24 14:33 Blood - Venous Blood Culture - Final Streptococcus pyogenes (Grp A) 09/28/24 15:24 Hip Right Gram Stain - Final 09/28/24 15:24 Hip Right Routine Culture - Final Streptococcus pyogenes (Grp A) Staphylococcus aureus 09/29/24 Unknown Urine clean catch - Clean Catch Midstream Urine Culture - Final No growth. Progress Note: A&P Assessment and plan (1) Atrial fibrillation: Status: Acute (2) Osteoporosis: Status: Acute (3) Acute kidney injury superimposed on CKD: Status: Acute (4) MSSA bacteremia: Status: Acute (5) Sepsis: Status: Acute Plan Septic shock: Possibly secondary to soft tissue infection around her right hip wound, has a wound VAC and seen by wound nurse. Readmission for the same problem this time. CT right hip showed subcutaneous soft tissue swelling through the right thigh but no evidence of osteomyelitis. Blood cultures positive for MSSA and strep, currently antibiotics downgraded to ceftriaxone Off Levophed support since yesterday Acute on chronic kidney disease: Patient has an underlying CKD with baseline creatinine around 1.1; acute kidney injury secondary to ATN from septic shock Currently creatinine is down trending, down to 1.6 this morning, continue closely monitor renal function Avoid nephrotoxic medications, monitor I's and O's Atrial fibrillation: Restarted home metoprolol 25 mg b.i.d. Continue apixaban for anticoagulation Prophylaxis: Apixaban Quality Stroke Does the patient have a stroke diagnosis?: No VTE Prior VTE?: No VTE Risk Level:: Medical - moderate - high VTE Device Contraindication: Treatment Not Indicated VTE Drug Contraindication: Treatment Not Indicated
[2024-10-02] MEDS: Escitalopram Oxalate 20 MG TABLET PO (12:54)
--- NOTE | 2024-10-02 13:04 | PC.NURSE ---
Assumed care @ 0700? Neuro/Respiratory:: Alert & oriented, on RA, clear lung sounds. Cardiac: Afib on tele GI/: LBM? 10/02, Voiding at bedside commode Skin: Impaired skin integrity (see skin assessment)? Infectious: IV Antibiotics ? Lines: peripheral IVs x2 Plan: Transfer to [facility]. No longer requiring ICU-level care.
--- NOTE | 2024-10-02 13:14 | MHC.CM.PN ---
Pt making clinical progress in ICU: off pressors: continues on IV ATB. Original d/c plan for home w/existing [facility] services. Will re-evaluate to ensure this remains appropriate. CM to follow.
[2024-10-03] VITALS (8 sets, daily range): BP systolic 111–136; BP diastolic 58–65; PULSE 78–100; RESP 13–18; TEMP 36.4–36.9; O2SAT 94–99
[2024-10-03 06:26] LABS: MANUAL DIFF FLAG NO
[2024-10-03 06:36] LABS: Basophils Percent Auto 0.5 % (0-2); Eosinophils Absolute Auto 0.3 X10*3/uL (0.0-0.4); Eosinophils Percent Auto 5.2 % (0-4); Hematocrit 30.6 % (37.0-47.0); Hemoglobin 9.9 g/dl (12.0-16.0); Imm Gran Abs Auto 0.06 X10*3/uL (0.00-0.03); Lymphocytes Absolute Auto 1.6 X10*3/uL (1.2-4.9); Lymphocytes Percent Auto 26.5 % (20-40); Mean Corpuscular HGB Conc 32.4 g/dl (31.0-35.0); Mean Corpuscular Hemoglobin 31.3 pg (27.0-33.0); Mean Corpuscular Volume 96.8 fL (80.0-98.0); Mean Platelet Volume 8.8 fL (9.4-12.3); Monocytes Absolute Auto 0.4 X10*3/uL (0.1-1.2); Monocytes Percent Auto 6.5 % (2-11); Neutrophils Absolute Auto 3.6 x10*3/uL (2.0-8.3); Neutrophils Percent Auto 60.3 % (45-73); Platelet Count 310 X10*3/uL (160-400); Red Blood Count 3.16 X10*6/uL (4.20-5.50)
[2024-10-03 06:54] LABS: Alanine Aminotransferase 9 U/L (0-31); Albumin Level 3.8 g/dL (3.5-5.0); Alkaline Phosphatase 49 U/L (39-117); Anion Gap 13 (12-20); Aspartate Amino Transferase 14 U/L (5-31); Bilirubin Total 0.3 mg/dL (0.0-1.0); Blood Urea Nitrogen 27 mg/dL (9-16); Calcium 9.1 mg/dL (8.4-10.2); Carbon Dioxide 26 mmol/L (22-29); Chloride 109 mmol/L (96-108); Creatinine Clr Calc Pharmacy 32.2; Estimated Glomerular Filt Rate 42; Glucose Random 80 mg/dL (60-115); Magnesium 1.7 mg/dL (1.6-2.6); Phosphorus 3.6 mg/dL (2.7-4.5); Potassium 3.5 mmol/L (3.3-5.1); Sodium 144 mmol/L (135-145); Total Protein 6.4 g/dL (6.5-8.0)
[2024-10-03] MEDS: Apixaban 5 MG TABLET PO ×2 (07:27→20:09)
[2024-10-03] MEDS: Escitalopram Oxalate 20 MG TABLET PO (07:27)
[2024-10-03] MEDS: Metoprolol Tartrate 25 MG TABLET PO ×2 (07:27→20:09)
--- NOTE | 2024-10-03 10:31 | P.PNIM_ITS ---
Subjective Subjective Date of Service: 10/03/24 Interval History: feeling better Physical Exam 2 Vital Signs: Vital Signs: Last Vital Signs Temp 97.5 F 10/03/24 07:15 Pulse 93 10/03/24 07:15 Resp 18 10/03/24 07:15 BP 136/65 10/03/24 07:15 Pulse Ox 99 10/03/24 07:15 O2 Del Method Room Air 10/03/24 07:15 BMI result Body Mass Index 33.6 RLE improved erythema and edema General: AO X 3, no acute distress Resp: CTA bilateral, no accessory muscles used CVS: S1,S2,RRR GI: soft, non tender, non distended Neuro: motor grossly intact, alert Psych: appropriate affect, appropriate insight Objective Data Active Medications Acetaminophen (Acetaminophen 325 Mg Tablet) 650 mg PO Q4H PRN PRN Reason: Pain, Mild 1-3,fever,headache Last Admin: 10/01/24 20:04 Dose: 650 mg Documented By: LILIANA Apixaban (Apixaban 5 Mg Tablet) 5 mg PO BID [facility] Last Admin: 10/03/24 07:27 Dose: 5 mg Documented By: YUMIKO Ceftriaxone Sodium (Ceftriaxone Sodium 2 Gm Vial) 2 gm IVPUSH Q24H [facility] Last Admin: 10/02/24 10:53 Dose: 2 gm Documented By: SARWAT Escitalopram Oxalate (Escitalopram Oxalate 20 Mg Tablet) 20 mg PO DAILY [facility] Last Admin: 10/03/24 07:27 Dose: 20 mg Documented By: YUMIKO Metoprolol Tartrate (Metoprolol Tartrate 25 Mg Tablet) 25 mg PO Q12H [facility]; Protocol Last Admin: 10/03/24 07:27 Dose: 25 mg Documented By: YUMIKO Labs 10/03/24 06:12 10/03/24 06:12 Labs: Laboratory Results - last 24 hr 10/03/24 06:12 MCV 96.8 MCH 31.3 MCHC 32.4 RDW 14.0 Plt Count 310 D MPV 8.8 L Immature Gran % (Auto) 1.0 H Neut % (Auto) 60.3 Lymph % (Auto) 26.5 [place] % (Auto) 6.5 Eos % (Auto) 5.2 H Baso % (Auto) 0.5 Lymph # (Auto) 1.6 [place] # (Auto) 0.4 Eos # (Auto) 0.3 Baso # (Auto) 0.0 Abs Immat Gran (auto) 0.06 H Absolute Neuts (auto) 3.6 Absolute Nucleated RBC 0.000 Nucleated RBC % (auto) 0.0 Anion Gap 13 Estim Creat Clear Calc 32.2 Estimated GFR 42 Random Glucose 80 Calcium 9.1 D Phosphorus 3.6 Magnesium 1.7 Total Bilirubin 0.3 AST 14 ALT 9 Alkaline Phosphatase 49 Total Protein 6.4 L Albumin 3.8 Microbiology Microbiology Results: Microbiology 09/30/24 10:44 Blood Culture - Preliminary Blood - Venous No growth after 48 hours. 09/30/24 10:44 Blood Culture - Preliminary Blood - Venous No growth after 48 hours. Assessment and Plan (1) Cellulitis of right leg: Status: Acute Plan 78F PMH chronic right hip wound, ckd III, htn ,pafib on eliquis, elenita, mood disorder, presented 09/30/24 with RLE erythema complicated by septic shock, aniya, admitted to icu for pressor support, found to have strep pyogenes bacteremia and mssa in wound, no deep infection identified, transitioned to rocephin and weaned off pressors, downgraded 10/03/24 Septic shock due to right lower extremity cellulitis complicated by strep pyogenes bacteremia Now off pressors, continue ceftriaxone, blood cultures negative since 09/30/2024 Follow up Infectious Disease, echo ANIYA on CKD III resolved pafib eliquis, metoprolol elenita cpap at night mood disorder now only on lexapro and ativan ?need for buproprion, ariprazole dvt prophylaxis - eliquis full code reason for continued hospitalization:awaiting id and echo, ?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
--- NOTE | 2024-10-03 11:51 | HO.WOUND ---
Wound Consult: Initial 78yr old? admitted to [facility] on 09/28/24 - See progress notes and H&P for detailed history.? Wound consult placed for Right Hip and Lower Leg.? Patient agreeable to assessment and photo documentation.? Right lower legs assessed for pigmentation changed no open injury in need of topical treatment. Right Hip Etiology: ?Chronic nonhealing surgical site ?Present on Admission Measurements: 0.2cm x 1cm x 5cm Wound Bed: unable to visalize Drainage / Odor: yellow drainage noted on dressing Edges: ? unattached Dannielle wound: intact no erythema noted - ? No Induration, Fluctuance or Warmth noted Pain: denies Goals of Treatment: ? Durafiber AG packing every other day. Recommendations: 1. Turn and Reposition every 2 hours and as needed for patient comfort.? Use pillows or wedges to support off loading positions. 2. Off Load all bony prominences with use of pillows and heel boots if needed.? Apply Preventative foams where needed. ? 3. Monitor for incontinence and moisture control, use barrier creams when needed for prevention and treatment. 4. Provide adequate and supplemental nutrition.? 5. Continue low air loss mattress. 6. When applicable maintain blood glucose levels per Providers order. Right Hip - Cleanse and irrigate with NS, pat dry. Apply skin prep to periwound lightly pack wound bed with Durafiber AG followed by foam dressing. Change every other day. Re-consult wound care Nurse for wound deterioration or wound changes.
[2024-10-03] MEDS: ceFAZolin Sodium/Dextrose,Iso 2 GM/50 ML PIGGYBACK IV ×2 (13:42→21:47)
--- NOTE | 2024-10-03 14:05 | PM.CNOR ---
History of Present Illness HPI Consult date: 10/03/24 Chief complaint: Sepsis Narrative: 78 yo female admitted to the medical service - she was admitted to the hospital on 09/28/24 and transferred to ICU due to septic shock. Previous hospital admission on 08/18/24 for right hip seroma drainage and septic shock. On this admission patient was treated in the ICU with pressors and IV abx. She states the wound is chronic and is being treated by wound care. she states recently she developed redness in the right thigh which progressed to the lower extremity. She denies right hip pain, denies pain with ambulation. Review of Systems Review of Systems: Yes all other systems are reviewed and are negative PMFSH Past Medical History Medical History Acute kidney injury superimposed on CKD Thoracolumbar back pain Decreased GFR ANIYA (acute kidney injury) Self-care deficit in patient living alone Chronic wound Seroma of musculoskeletal structure after musculoskeletal system procedure New onset a-fib History of septic shock Hospital discharge follow-up Unspecified open wound, right hip, initial encounter Sleep disorder Abnormal skin growth Tubular adenoma of colon Ex-smoker Mitral annular calcification Aortic valve calcification Stasis edema of both lower extremities Family history of colon cancer Nail fungus Nocturnal hypoxemia Right bundle branch block Premature atrial contractions Hip pain, right Soft tissue infection Sepsis Septic shock Acute hypotension Oropharyngeal dysphagia Post-COVID chronic dyspnea Chronic GERD Peripheral vascular disease SOULEYMANE (obstructive sleep apnea) Wound, open, hip or thigh with complication Encounter for general adult medical examination with abnormal findings Preoperative cardiovascular examination Change in bowel movement Traumatic seroma of right thigh Postprocedural seroma of skin and subcutaneous tissue following other procedure Open wound of right hip and thigh Right rib fracture Menopause Pain management Pain management contract agreement Open wound of right lower leg with complication Shortness of breath Cough Edema Influenza A H1N1 infection Cellulitis of right leg Varicose veins of right lower extremity with inflammation Enterococcus faecalis infection Abscess Hip pain, right Obesity Lymphedema Morbid obesity due to excess calories Pre-op evaluation Colon cancer screening Medicare annual wellness visit, subsequent Family history of anesthesia complication Back pain Arthritis Renal calculi Post-influenza syndrome Tremor Peripheral vascular disease Right bundle branch block (RBBB) Aortic valve calcification Mitral annular calcification COPD (chronic obstructive pulmonary disease) Restrictive lung disease Depression, major, recurrent Hypertension, essential Family History Family History Father No problems noted. Mother Alzheimer's disease Maternal Grandmother Cancer Maternal Grandfather No problems noted. Paternal Grandfather No problems noted. Paternal Grandmother No problems noted. Maternal Aunt Cancer Sister Colon cancer Son No problems noted. Daughter No problems noted. Surgical History Surgical History S/P total right hip arthroplasty History of excision of lesion (10/20/23) History of total hip arthroplasty S/P gastric bypass History of surgery on lower extremity (01/25/23) History of surgery H/O colonoscopy History of cataract extraction History of bilateral tubal ligation History of tonsillectomy Social History Social History (Updated 09/28/24 @ 21:17 by Bairon Bradley RN) Household Members: None Housing: Other Housing Other:: Mobile home Are you a primary animal care taker to a significant other at home: No Do you presently have visiting nurse or other home services: Yes (Wound Care) Alcohol intake: former Patient Tobacco Use Status: Former Tobacco user Tobacco use type: Cigarette Years Smoked: 40 e-Cigarette/Vaping Use: Currently Using Second Hand Smoke Exposure: No Advance Directives Date on File: 03/13/15 service: No Current occupational status: retired and other Current occupation: right handed Cognitive needs: No Hearing needs: No Vision needs: No Meds Allergies Allergy/AdvReac Type Severity Reaction Status Date / Time sucralfate [Carafate] Allergy Intermediate hives Verified 09/28/24 14:19 NSAIDS (Non-Steroidal AdvReac Intermediate cannot Verified 09/28/24 14:19 Anti-Inflamma take due to gastric bypass history Active Medications: Current Medications Acetaminophen (Acetaminophen 325 Mg Tablet) 650 mg PO Q4H PRN PRN Reason: Pain, Mild 1-3,fever,headache Last Admin: 10/01/24 20:04 Dose: 650 mg Apixaban (Apixaban 5 Mg Tablet) 5 mg PO BID [facility] Last Admin: 10/03/24 07:27 Dose: 5 mg Ascorbic Acid (Ascorbic Acid 500 Mg Tablet) 1,000 mg PO DAILY [facility] Escitalopram Oxalate (Escitalopram Oxalate 20 Mg Tablet) 20 mg PO DAILY [facility] Last Admin: 10/03/24 07:27 Dose: 20 mg Ferrous Sulfate (Ferrous Sulfate 324 Mg Tablet.) 324 mg PO BEDTIME [facility] Cefazolin Sodium/Dextrose (Ancef) 2 gm in 50 mls @ 100 mls/hr IV Q8H [facility] Last Admin: 10/03/24 13:42 Dose: 100 mls/hr Lorazepam (Lorazepam 0.5 Mg Tablet) 0.25 mg PO DAILY PRN PRN Reason: Anxiety Metoprolol Tartrate (Metoprolol Tartrate 25 Mg Tablet) 25 mg PO Q12H [facility]; Protocol Last Admin: 10/03/24 07:27 Dose: 25 mg Omeprazole (Omeprazole 40 Mg Capsule.) 40 mg PO DAILY@0630 [facility] Primidone (Primidone 50 Mg Tablet) 50 mg PO BEDTIME [facility] Vitamin D (Cholecalciferol (Vitamin D3) 25 Mcg Tablet) 50 mcg PO DAILY [facility] Home Medications ?Medication ?Instructions ?Recorded ?Confirmed ?Last Taken ?Type ferrous sulfate 325 mg (65 mg 325 mg PO BEDTIME 04/02/20 09/28/24 Unknown History iron) tablet (Feosol) escitalopram oxalate 20 mg tablet 20 mg PO DAILY 07/30/20 09/28/24 01/24/23 History (Lexapro) lorazepam 0.5 mg tablet 0.25 mg PO DAILY PRN Anxiety 06/24/22 09/28/24 01/24/23 History primidone 50 mg tablet 50 mg PO BEDTIME 10/12/23 09/28/24 Unknown History alendronate 70 mg tablet (Fosamax) 70 mg PO [place] 08/17/24 09/28/24 Unknown History ascorbic acid (vitamin C) 250 mg 1,000 mg PO DAILY 09/08/24 09/28/24 Unknown History tablet cholecalciferol (vitamin D3) 50 50 mcg PO DAILY 09/22/24 09/28/24 Unknown History mcg (2,000 unit) capsule acetaminophen 325 mg tablet 650 mg PO Q6H PRN Pain 09/28/24 09/28/24 Unknown History aripiprazole 10 mg tablet 10 mg PO DAILY 09/28/24 09/28/24 Unknown History bupropion HCl 150 mg 24 hr tablet, 150 mg PO DAILY 09/28/24 09/28/24 Unknown History extended release bupropion HCl 300 mg 24 hr tablet, 300 mg PO DAILY 09/28/24 09/28/24 Unknown History extended release hydrochlorothiazide 25 mg tablet 25 mg PO DAILY 09/28/24 09/28/24 Unknown History omeprazole 40 mg capsule,delayed 40 mg PO DAILY@0630 09/28/24 09/28/24 Unknown History release Physical Exam Vital Signs: Vital Signs: Last Vital Signs Temp 98.0 F 10/03/24 11:15 Pulse 95 10/03/24 11:15 Resp 16 10/03/24 11:15 BP 116/58 L 10/03/24 11:15 Pulse Ox 97 10/03/24 11:15 O2 Del Method Room Air 10/03/24 11:15 BMI result Body Mass Index 33.6 Const: General: cooperative, healthy appearing, comfortable and no acute distress Extrem: Other: Right hip with packing in place in seroma No pain with ROM of the hip No pain flexion of the hip She is able to stang and weight bear NVI Results Labs 10/03/24 06:12 10/03/24 06:12 Labs: Abnormal lab results 10/03/24 Range/Units 06:12 RBC 3.16 L (4.20-5.50) X10*6/uL Hgb 9.9 L (12.0-16.0) g/dl Hct 30.6 L (37.0-47.0) % MPV 8.8 L (9.4-12.3) fL Immature Gran % (Auto) 1.0 H (0.0-0.4) % Eos % (Auto) 5.2 H (0-4) % Abs Immat Gran (auto) 0.06 H (0.00-0.03) X10*3/uL Chloride 109 H (96-108) mmol/L BUN 27 H (9-16) mg/dL Total Protein 6.4 L (6.5-8.0) g/dL H & H 09/28/24 09/29/24 09/30/24 Range/Units 14:32 04:48 04:59 Hgb 9.6 L 8.7 L 8.9 L (12.0-16.0) g/dl Hct 29.4 L 27.7 L 27.7 L (37.0-47.0) % 09/30/24 10/01/24 10/02/24 Range/Units 23:14 05:01 04:30 Hgb 9.7 L 9.4 L 8.7 L (12.0-16.0) g/dl Hct 29.1 L 29.9 L 26.9 L (37.0-47.0) % 10/03/24 Range/Units 06:12 Hgb 9.9 L (12.0-16.0) g/dl Hct 30.6 L (37.0-47.0) % Coagulation 09/28/24 Range/Units 14:32 INR 1.8 H (0.9-1.1) All other labs normal. Assessment and Plan (1) Open wound of right thigh: Status: Acute Plan No evidence of right hip hardware infection based off absence of hardware failure on imaging and no evidence of abscess, no evidence of osteo. No orthopedic intervention for right hip hardware [facility] management and wound care Procedures Date of Service Date of Service: 10/03/24
--- NOTE | 2024-10-03 14:37 | MHC.CM.PN ---
This CM met with pt and her daughter present at bedside to discuss discharge plans, pt aware that she will need 4 weeks IV antibiotics, she would like to have home infusion services set up in the home. Referral placed to [facility], awaiting response from them.
[2024-10-03] MEDS: Primidone 50 MG TABLET PO (20:09)
[2024-10-03] MEDS: Ferrous Sulfate 324 MG TABLET.DR PO (20:09)
[2024-10-04 03:37] VITALS: BP 135/73; PULSE 84; RESP 18; TEMP 36.6; O2SAT 95
[2024-10-04] MEDS: Omeprazole 40 MG CAPSULE.DR PO (06:29)
[2024-10-04] MEDS: ceFAZolin Sodium/Dextrose,Iso 2 GM/50 ML PIGGYBACK IV ×3 (06:29→21:15)
--- NOTE | 2024-10-04 07:00 | CA_ITS ---
Transthoracic Echocardiogram Patient (Last, First, Middle): Mayra Rodriguez A Gender: Female Date of : 1945 Age: 78 Procedure Date: 10/04/2024 Procedure Type: Transthoracic Echocardiogram Location: S3E Height: 149.86 cm Weight: 72.58 kg BSA: 1.68 m2 Heart Rate: 97 bpm BP: 120 / 65 mmHg Money Examiner: Referring MD: Preston Benítez MD Transporter Driver: Edgar Payton MD Symptoms: bacteremia Study Quality: Adequate ECG Rhythm: Atrial Fibrillation Conclusions: - 1. Normal LV ejection fraction of 60 65% with mild LVH 2. Biatrial enlargement, left greater than right 3. Moderately enlarged right ventricle with preserved contractility 4. Thickened aortic valve with mild calcific changes along with moderate mitral valve calcification with possible early mild aortic stenosis 5. No obvious vegetations noted although these can not be entirely ruled out, clinical correlation suggested 6. Mildly elevated right ventricular systolic pressure and mildly elevated right atrial pressures 7. No gross pericardial effusion Findings Left Ventricle Normal left ventricular size and systolic function. There is mildly increased left ventricular wall thickness. The visually estimated ejection fraction is between 60-65%. Diastolic function is indeterminate on the basis of available data. Right Ventricle Moderately increased right ventricular cavity size. There is normal right ventricular systolic function. Atria The left atrium is severely dilated. Interatrial shunt cannot be excluded. The right atrium is moderately dilated. Aortic Valve There is moderate thickening of the aortic valve. There is mild aortic valve stenosis. There is no aortic valve regurgitation. There were no obvious mobile masses noted suggestive of vegetations although these can not be entirely ruled out Mitral Valve There is mild anterior and moderate posterior mitral leaflet thickening. There is moderate mitral annular calcification. There is mild mitral valve regurgitation. There is no mitral valve stenosis. Pulmonic Valve The pulmonic valve was not well visualized. Tricuspid Valve Likely normal tricuspid valve structure and function. There is mild tricuspid valve regurgitation. Mildly elevated right atrial pressure. Mild pulmonary hypertension is present. Great Vessels Small plaque is seen in the sino tubular ridge. Venous The inferior vena cava is mildly dilated and collapses greater than 50% with inspiration. Pericardium/Pleural There is no evidence of pericardial effusion. Prior Study Comparison Changes noted compared to prior study dated: 08/23/2024. early mild aortic stenosis Mibi present Measurements 2D Linear Measurements IVSd: 1.31 0.6-0.9/0.6-1.0 cm LVIDd: 3.86 3.9-5.3/4.2-5.9 cm LVIDd Index: 2.30 2.4-3.2/2.2-3.1 cm/m2 LVIDs: 2.62 2.0-3.6 cm LVPWd: 1.25 0.7-1.1 cm LA Diam: 5.00 2.7-3.8/3.0-4.0 cm LAIDs Index: 2.98 1.5-2.3 cm/m2 LV Mass: 215.38 67-162/88-224 g LV Mass Index: 128.20 43-95/49-115 g/m2 LVOT Diam: 2.10 3.0+(-)1.3 cm Mitral Valve MV VTI: 0.34 MV Pk Son: 1.64 MV Mn Son: 0.91 MV Pk Grad: 11.00 MV Mn Grad: 4.00 MV Pk E: 1.27 MV Decel Time: 170.00 E'Lateral: 18.90 E'Medial: 9.03 E/E' Med: 14.10 E/E' Lat: 6.70 PHT: 50.00 MVA PHT: 4.40 MVA Continuity: 2.08 Decel [place]: 7.48 Aortic Valve AoV Pk Son: 2.15 AoV Mn Son: 1.33 AoV VTI: 0.37 AoV Pk Grad: 18.00 Aov Mn Grad: 9.00 KRISTOFER Cont.VTI: 1.88 LVOT LVOT Pk Son: 1.07 LVOT Mn Son: 0.62 LVOT VTI: 0.20 LVOT Pk Grad: 5.00 LVOT Mn Grad: 2.00 LVOT Diam: 2.10 LVOT Area: 3.46 Diastolic Function MV Pk E: 1.27 E'Medial: 9.03 E/E' Med: 14.10 E' Laterial: 18.90 E/E' Lat: 6.70 Right Ventricle TAPSE (mm): 29.00 TVS' Son: 12.10 Tricuspid Valve TR Pk Son: 2.93 TR Pk Grad: 34.00 RA Press: 8.00 RVSP: 42.00 Great Vessels Aorta Sinus of Valsalva: 3.50 2.0-3.5 cm Ao Asc: 3.50 2.1-3.4 cm Pulmonary Valve PV Pk Son: 1.17 Peak PV Grad: 5.00 Updated in Other Vendor System with Status of Final Edgar Payton MD electronically signed on 10/04/2024 11:26:24 AM with status of Final
[2024-10-04 07:25] LABS: Hematocrit 29.9 % (37.0-47.0); Hemoglobin 9.3 g/dl (12.0-16.0); Mean Corpuscular HGB Conc 31.1 g/dl (31.0-35.0); Mean Corpuscular Hemoglobin 30.5 pg (27.0-33.0); Mean Platelet Volume 8.9 fL (9.4-12.3); Platelet Count 331 X10*3/uL (160-400); Red Blood Count 3.05 X10*6/uL (4.20-5.50); Red Cell Distribution Width 14.1 % (11.0-16.0)
[2024-10-04 07:43] LABS: Anion Gap 12 (12-20); Blood Urea Nitrogen 26 mg/dL (9-16); Calcium 9.2 mg/dL (8.4-10.2); Carbon Dioxide 27 mmol/L (22-29); Chloride 109 mmol/L (96-108); Creatinine Clr Calc Pharmacy 35.6; Estimated Glomerular Filt Rate 47; Glucose Random 81 mg/dL (60-115); Potassium 3.6 mmol/L (3.3-5.1); Sodium 144 mmol/L (135-145)
[2024-10-04 07:51] VITALS: BP 121/64; PULSE 85; RESP 18; TEMP 36.3; O2SAT 97
[2024-10-04] MEDS: Cholecalciferol (Vitamin D3) 25 MCG TABLET 50 MCG PO (08:12)
[2024-10-04] MEDS: Escitalopram Oxalate 20 MG TABLET PO (08:12)
[2024-10-04] MEDS: Ascorbic Acid 500 MG TABLET 1000 MG PO (08:12)
[2024-10-04] MEDS: Metoprolol Tartrate 25 MG TABLET PO ×2 (08:12→19:39)
[2024-10-04] MEDS: Apixaban 5 MG TABLET PO ×2 (08:13→19:39)
--- NOTE | 2024-10-04 08:59 | MHC.CM.PN ---
CM ATTEMTPED TO CONTACT [facility] AT [phone], NO ANSWER AND DETAILED MESSAGE LEFT. MESSAGE ALSO SENT THROUGH REFERRAL IN [facility].
[2024-10-04 11:32] VITALS: BP 110/62; PULSE 79; RESP 18; TEMP 36.4; O2SAT 97
--- NOTE | 2024-10-04 11:38 | P.PNIM_ITS ---
Subjective Subjective Date of Service: 10/04/24 Interval History: Feeling better, inquiring about discharge Physical Exam 2 Vital Signs: Vital Signs: Last Vital Signs Temp 97.6 F 10/04/24 11:32 Pulse 79 10/04/24 11:32 Resp 18 10/04/24 11:32 BP 110/62 10/04/24 11:32 Pulse Ox 97 10/04/24 11:32 O2 Del Method Room Air 10/04/24 11:32 BMI result Body Mass Index 33.6 RLE improved erythema and edema General: AO X 3, no acute distress Resp: CTA bilateral, no accessory muscles used CVS: S1,S2,RRR GI: soft, non tender, non distended Neuro: motor grossly intact, alert Psych: appropriate affect, appropriate insight Objective Data Active Medications Acetaminophen (Acetaminophen 325 Mg Tablet) 650 mg PO Q4H PRN PRN Reason: Pain, Mild 1-3,fever,headache Last Admin: 10/01/24 20:04 Dose: 650 mg Documented By: LILIANA Apixaban (Apixaban 5 Mg Tablet) 5 mg PO BID [facility] Last Admin: 10/04/24 08:13 Dose: 5 mg Documented By: POOL Ascorbic Acid (Ascorbic Acid 500 Mg Tablet) 1,000 mg PO DAILY [facility] Last Admin: 10/04/24 08:12 Dose: 1,000 mg Documented By: POOL Escitalopram Oxalate (Escitalopram Oxalate 20 Mg Tablet) 20 mg PO DAILY [facility] Last Admin: 10/04/24 08:12 Dose: 20 mg Documented By: POOL Ferrous Sulfate (Ferrous Sulfate 324 Mg Tablet.) 324 mg PO BEDTIME [facility] Last Admin: 10/03/24 20:09 Dose: 324 mg Documented By: REJI Cefazolin Sodium/Dextrose (Ancef) 2 gm in 50 mls @ 100 mls/hr IV Q8H [facility] Last Infusion: 10/04/24 06:59 Dose: Infused Documented By: POOL Lorazepam (Lorazepam 0.5 Mg Tablet) 0.25 mg PO DAILY PRN PRN Reason: Anxiety Metoprolol Tartrate (Metoprolol Tartrate 25 Mg Tablet) 25 mg PO Q12H [facility]; Protocol Last Admin: 10/04/24 08:12 Dose: 25 mg Documented By: POOL Omeprazole (Omeprazole 40 Mg Capsule.) 40 mg PO DAILY@0630 [facility] Last Admin: 10/04/24 06:29 Dose: 40 mg Documented By: REJI Primidone (Primidone 50 Mg Tablet) 50 mg PO BEDTIME [facility] Last Admin: 10/03/24 20:09 Dose: 50 mg Documented By: REJI Vitamin D (Cholecalciferol (Vitamin D3) 25 Mcg Tablet) 50 mcg PO DAILY [facility] Last Admin: 10/04/24 08:12 Dose: 50 mcg Documented By: POOL Labs 10/04/24 07:14 10/04/24 07:14 Labs: Laboratory Results - last 24 hr 10/04/24 07:14 MCV 98.0 MCH 30.5 MCHC 31.1 RDW 14.1 Plt Count 331 MPV 8.9 L Absolute Nucleated RBC 0.000 Nucleated RBC % (auto) 0.0 Anion Gap 12 Estim Creat Clear Calc 35.6 Estimated GFR 47 Random Glucose 81 Calcium 9.2 Assessment and Plan (1) Cellulitis of right leg: Status: Acute Plan 78F PMH chronic right hip wound, ckd III, htn ,pafib on eliquis, elenita, mood disorder, presented 09/30/24 with RLE erythema complicated by septic shock, aniya, admitted to icu for pressor support, found to have strep pyogenes bacteremia and mssa in wound, no deep infection identified, transitioned to rocephin and weaned off pressors, downgraded 10/03/24 Septic shock due to right lower extremity cellulitis complicated by , was on pressors in ICU, Wound is growing MSSA and blood culture growing strep pyogenes Continue ceftriaxone, blood cultures negative since 09/30/2024. seen by ortho: has hsitory right hip seroma septic shock in August 2024. On this occasion No evidence of right hip hardware infection based off absence of hardware failure on imaging and no evidence of abscess, no evidence of osteo. No orthopedic intervention for right hip hardware [facility] management and wound care ID to determine final Abx and modality ANIYA on CKD III resolved pafib eliquis, metoprolol elenita cpap at night mood disorder now only on lexapro and ativan ?need for buproprion, ariprazole dvt prophylaxis - eliquis full code reason for continued hospitalization:awaiting id and echo, ?nursing home abx Quality Stroke Does the patient have a stroke diagnosis?: No VTE Prior VTE?: No VTE Risk Level:: Medical - moderate - high VTE Device Contraindication: Treatment Not Indicated VTE Drug Contraindication: Treatment Not Indicated
[2024-10-04 15:11] VITALS: BP 114/55; PULSE 94; RESP 18; TEMP 36.3; O2SAT 96
--- NOTE | 2024-10-04 17:20 | P.CNID_ITS ---
History of Present Illness Data of Consult Service Date: 10/03/24 Requesting physician: Preston Benítez Primary Care Provider: Kayla Smith MD HPI Reason for consult: strep bacteremia,MSSA and strep wound She presents with redness and opening right hip ,now resolving. She has blood cultures 09/28 strep Group A and MSSA,Group A wound She reports right THR 10 years ago,Jamar adn three years open wound. She has had wound Vac. Review of Systems 2 Review of Systems: Yes all other systems are reviewed and are negative FOR[facility]LY [facility] Past Medical History Medical History Acute kidney injury superimposed on CKD Thoracolumbar back pain Decreased GFR ANIYA (acute kidney injury) Self-care deficit in patient living alone Chronic wound Seroma of musculoskeletal structure after musculoskeletal system procedure New onset a-fib History of septic shock Hospital discharge follow-up Unspecified open wound, right hip, initial encounter Sleep disorder Abnormal skin growth Tubular adenoma of colon Ex-smoker Mitral annular calcification Aortic valve calcification Stasis edema of both lower extremities Family history of colon cancer Nail fungus Nocturnal hypoxemia Right bundle branch block Premature atrial contractions Hip pain, right Soft tissue infection Sepsis Septic shock Acute hypotension Oropharyngeal dysphagia Post-COVID chronic dyspnea Chronic GERD Peripheral vascular disease SOULEYMANE (obstructive sleep apnea) Wound, open, hip or thigh with complication Encounter for general adult medical examination with abnormal findings Preoperative cardiovascular examination Change in bowel movement Traumatic seroma of right thigh Postprocedural seroma of skin and subcutaneous tissue following other procedure Open wound of right hip and thigh Right rib fracture Menopause Pain management Pain management contract agreement Open wound of right lower leg with complication Shortness of breath Cough Edema Influenza A H1N1 infection Cellulitis of right leg Varicose veins of right lower extremity with inflammation Enterococcus faecalis infection Abscess Hip pain, right Obesity Lymphedema Morbid obesity due to excess calories Pre-op evaluation Colon cancer screening Medicare annual wellness visit, subsequent Family history of anesthesia complication Back pain Arthritis Renal calculi Post-influenza syndrome Tremor Peripheral vascular disease Right bundle branch block (RBBB) Aortic valve calcification Mitral annular calcification COPD (chronic obstructive pulmonary disease) Restrictive lung disease Depression, major, recurrent Hypertension, essential Family History Family History Father No problems noted. Mother Alzheimer's disease Maternal Grandmother Cancer Maternal Grandfather No problems noted. Paternal Grandfather No problems noted. Paternal Grandmother No problems noted. Maternal Aunt Cancer Sister Colon cancer Son No problems noted. Daughter No problems noted. Surgical History Surgical History S/P total right hip arthroplasty History of excision of lesion (10/20/23) History of total hip arthroplasty S/P gastric bypass History of surgery on lower extremity (01/25/23) History of surgery H/O colonoscopy History of cataract extraction History of bilateral tubal ligation History of tonsillectomy Social History Social History Household Members: None Housing: Other Housing Other:: Mobile home Are you a primary home care physical therapist to a significant other at home: No Do you presently have visiting nurse or other home services: Yes (Wound Care) Alcohol intake: former Patient Tobacco Use Status: Former Tobacco user Tobacco use type: Cigarette Years Smoked: 40 e-Cigarette/Vaping Use: Currently Using Second Hand Smoke Exposure: No Advance Directives Date on File: 03/13/15 service: No Current occupational status: retired and other Current occupation: right handed Cognitive needs: No Hearing needs: No Vision needs: No Meds Allergies Allergy/AdvReac Type Severity Reaction Status Date / Time sucralfate [Carafate] Allergy Intermediate hives Verified 09/28/24 14:19 NSAIDS (Non-Steroidal AdvReac Intermediate cannot Verified 09/28/24 14:19 Anti-Inflamma take due to gastric bypass history Active Medications: Current Medications Acetaminophen (Acetaminophen 325 Mg Tablet) 650 mg PO Q4H PRN PRN Reason: Pain, Mild 1-3,fever,headache Last Admin: 10/01/24 20:04 Dose: 650 mg Apixaban (Apixaban 5 Mg Tablet) 5 mg PO BID [facility] Last Admin: 10/04/24 08:13 Dose: 5 mg Ascorbic Acid (Ascorbic Acid 500 Mg Tablet) 1,000 mg PO DAILY [facility] Last Admin: 10/04/24 08:12 Dose: 1,000 mg Escitalopram Oxalate (Escitalopram Oxalate 20 Mg Tablet) 20 mg PO DAILY [facility] Last Admin: 10/04/24 08:12 Dose: 20 mg Ferrous Sulfate (Ferrous Sulfate 324 Mg Tablet.) 324 mg PO BEDTIME [facility] Last Admin: 10/03/24 20:09 Dose: 324 mg Cefazolin Sodium/Dextrose (Ancef) 2 gm in 50 mls @ 100 mls/hr IV Q8H [facility] Last Infusion: 10/04/24 14:22 Dose: Infused Lorazepam (Lorazepam 0.5 Mg Tablet) 0.25 mg PO DAILY PRN PRN Reason: Anxiety Metoprolol Tartrate (Metoprolol Tartrate 25 Mg Tablet) 25 mg PO Q12H [facility]; Protocol Last Admin: 10/04/24 08:12 Dose: 25 mg Omeprazole (Omeprazole 40 Mg Capsule.Dr) 40 mg PO DAILY@0630 [facility] Last Admin: 10/04/24 06:29 Dose: 40 mg Primidone (Primidone 50 Mg Tablet) 50 mg PO BEDTIME [facility] Last Admin: 10/03/24 20:09 Dose: 50 mg Vitamin D (Cholecalciferol (Vitamin D3) 25 Mcg Tablet) 50 mcg PO DAILY [facility] Last Admin: 10/04/24 08:12 Dose: 50 mcg Home Medications ?Medication ?Instructions ?Recorded ?Confirmed ?Last Taken ?Type ferrous sulfate 325 mg (65 mg 325 mg PO BEDTIME 04/02/20 09/28/24 Unknown History iron) tablet (Feosol) escitalopram oxalate 20 mg tablet 20 mg PO DAILY 07/30/20 09/28/24 01/24/23 History (Lexapro) lorazepam 0.5 mg tablet 0.25 mg PO DAILY PRN Anxiety 06/24/22 09/28/24 01/24/23 History primidone 50 mg tablet 50 mg PO BEDTIME 10/12/23 09/28/24 Unknown History alendronate 70 mg tablet (Fosamax) 70 mg PO [place] 08/17/24 09/28/24 Unknown History ascorbic acid (vitamin C) 250 mg 1,000 mg PO DAILY 09/08/24 09/28/24 Unknown History tablet cholecalciferol (vitamin D3) 50 50 mcg PO DAILY 09/22/24 09/28/24 Unknown History mcg (2,000 unit) capsule acetaminophen 325 mg tablet 650 mg PO Q6H PRN Pain 09/28/24 09/28/24 Unknown History aripiprazole 10 mg tablet 10 mg PO DAILY 09/28/24 09/28/24 Unknown History bupropion HCl 150 mg 24 hr tablet, 150 mg PO DAILY 09/28/24 09/28/24 Unknown History extended release bupropion HCl 300 mg 24 hr tablet, 300 mg PO DAILY 09/28/24 09/28/24 Unknown History extended release hydrochlorothiazide 25 mg tablet 25 mg PO DAILY 09/28/24 09/28/24 Unknown History omeprazole 40 mg capsule,delayed 40 mg PO DAILY@0630 09/28/24 09/28/24 Unknown History release Physical Exam 2 Vital Signs: Vital Signs: Last Vital Signs Temp 97.3 F 10/04/24 15:11 Pulse 94 10/04/24 15:11 Resp 18 10/04/24 15:11 BP 114/55 L 10/04/24 15:11 Pulse Ox 96 10/04/24 15:11 O2 Del Method Room Air 10/04/24 15:11 BMI result Body Mass Index 33.6 Const: General: cooperative HEENT: Head: Yes normal to inspection Face and sinus: Yes normal facial exam Mouth: Normal oral and palatal mucosa present Teeth and gingiva: d entition normal Eyes: General: appearance normal, both eyes and all related structures P upils: Equal, round and reactive pupils present Resp: Effort & Inspection: normal respiratory effort Cardio: Rate: regular rate Rhythm: regular rhythm GI: Palpation (GI): Soft to palpation and nontender : General: Yes no CVA tenderness Back/Spine/Pelvis: Back: no CVA tenderness Skin: General skin exam: no rashes or lesions noted Neuro: General: moves all extremities Cranial nerves: Yes Equal, round and reactive pupils present Extrem: Other: right hip puncture wound resolving cellulitis General: Yes normal to inspection Psych: Appearance: grossly normal Results Labs 10/04/24 07:14 10/04/24 07:14 Labs: Short CBC 10/04/24 Range/Units 07:14 WBC 5.0 (4.8-10.8) X10*3/uL Hgb 9.3 L (12.0-16.0) g/dl Hct 29.9 L (37.0-47.0) % Plt Count 331 (160-400) X10*3/uL BMP 10/04/24 07:14 Sodium 144 Potassium 3.6 Chloride 109 H Carbon Dioxide 27 BUN 26 H Creatinine 1.12 Calcium 9.2 Microbiology Microbiology Results: Microbiology 09/30/24 10:44 Blood - Venous Blood Culture - Preliminary No growth after 48 hours. 09/30/24 10:44 Blood - Venous Blood Culture - Preliminary No growth after 48 hours. 09/28/24 14:32 Blood - Venous Blood Culture - Final Streptococcus pyogenes (Grp A) 09/28/24 14:33 Blood - Venous Blood Culture - Final Streptococcus pyogenes (Grp A) 09/28/24 15:24 Hip Right Gram Stain - Final 09/28/24 15:24 Hip Right Routine Culture - Final Streptococcus pyogenes (Grp A) Staphylococcus aureus 09/29/24 Unknown Urine clean catch - Clean Catch Midstream Urine Culture - Final No growth. Assessment and Plan (1) Streptococcal bacteremia: Status: Acute Plan Six weeks IV Kefzol cover hip and blood and possible po after. See Orthopedics
[2024-10-04 19:35] VITALS: BP 115/65; PULSE 98; RESP 18; TEMP 36.3; O2SAT 96
[2024-10-04] MEDS: Primidone 50 MG TABLET PO (19:39)
[2024-10-04] MEDS: Ferrous Sulfate 324 MG TABLET.DR PO (19:39)
[2024-10-05] VITALS (8 sets, daily range): BP systolic 105–133; BP diastolic 56–72; PULSE 69–108; RESP 18; TEMP 36–37.1; O2SAT 93–98
[2024-10-05] MEDS: Omeprazole 40 MG CAPSULE.DR PO (06:10)
[2024-10-05] MEDS: ceFAZolin Sodium/Dextrose,Iso 2 GM/50 ML PIGGYBACK IV ×3 (06:10→21:33)
[2024-10-05] MEDS: Ascorbic Acid 500 MG TABLET 1000 MG PO (09:56)
[2024-10-05] MEDS: Cholecalciferol (Vitamin D3) 25 MCG TABLET 50 MCG PO (09:57)
[2024-10-05] MEDS: Metoprolol Tartrate 25 MG TABLET PO ×2 (09:57→20:04)
[2024-10-05] MEDS: Escitalopram Oxalate 20 MG TABLET PO (09:57)
[2024-10-05] MEDS: Apixaban 5 MG TABLET PO (09:57)
--- NOTE | 2024-10-05 15:41 | MHC.CM.PN ---
[facility] IN AND [place]RIEFLY MET W/PT HOWEVER TEACH NOT DONE, CM CONTACTED PT'S DTR HEIKE HYATT AT NUM[employer] ON FILE WHO IS AVAILABLE TOMORROW FOR BEDSIDE TEACH AND TENTATIVELY SCHEDULED FOR 0900, CM WAITING FOR [facility] TO CONFIRM TIME.
--- NOTE | 2024-10-05 15:48 | PM.CNNEP ---
History of Present Illness Reason for Consult Consult date: 10/05/24 Chief Complaint Chief complaint: Sepsis History of Present Illness Narrative: 78 y/o female with CKD (followed by Dr Ocampo), open right hip wound who follows up with wound care twice a week, hypertension, peripheral vascular disease who presented 09/30 with RLE erythema complciated by septic shock, ANIYA admitted to ICU for pressor support- being trated for bacteremia in hip wound. Nephrology consulted for PICC line clearance as patient needs 6 weeks of abx treatment patient's most recent GFR on 10/04 is 47 states she feels well today at bedside. Review of Systems Constitutional: Reports no additional constitutional complaints Cardiovascular: Denies chest pain, Denies leg edema and Denies dyspnea Respiratory: Denies dyspnea Gastrointestinal: Denies abdominal pain, Denies diarrhea, Denies nausea and Denies vomiting Genitourinary: Denies hematuria, Denies difficulty voiding, Denies dysuria and Denies flank pain Skin/Breast: Denies rash and Reports other (hip wound) [facility] Past Medical History Medical History Acute kidney injury superimposed on CKD Thoracolumbar back pain Decreased GFR ANIYA (acute kidney injury) Self-care deficit in patient living alone Chronic wound Seroma of musculoskeletal structure after musculoskeletal system procedure New onset a-fib History of septic shock Hospital discharge follow-up Unspecified open wound, right hip, initial encounter Sleep disorder Abnormal skin growth Tubular adenoma of colon Ex-smoker Mitral annular calcification Aortic valve calcification Stasis edema of both lower extremities Family history of colon cancer Nail fungus Nocturnal hypoxemia Right bundle branch block Premature atrial contractions Hip pain, right Soft tissue infection Sepsis Septic shock Acute hypotension Oropharyngeal dysphagia Post-COVID chronic dyspnea Chronic GERD Peripheral vascular disease SOULEYMANE (obstructive sleep apnea) Wound, open, hip or thigh with complication Encounter for general adult medical examination with abnormal findings Preoperative cardiovascular examination Change in bowel movement Traumatic seroma of right thigh Postprocedural seroma of skin and subcutaneous tissue following other procedure Open wound of right hip and thigh Right rib fracture Menopause Pain management Pain management contract agreement Open wound of right lower leg with complication Shortness of breath Cough Edema Influenza A H1N1 infection Cellulitis of right leg Varicose veins of right lower extremity with inflammation Enterococcus faecalis infection Abscess Hip pain, right Obesity Lymphedema Morbid obesity due to excess calories Pre-op evaluation Colon cancer screening Medicare annual wellness visit, subsequent Family history of anesthesia complication Back pain Arthritis Renal calculi Post-influenza syndrome Tremor Peripheral vascular disease Right bundle branch block (RBBB) Aortic valve calcification Mitral annular calcification COPD (chronic obstructive pulmonary disease) Restrictive lung disease Depression, major, recurrent Hypertension, essential Family History Family History Father No problems noted. Mother Alzheimer's disease Maternal Grandmother Cancer Maternal Grandfather No problems noted. Paternal Grandfather No problems noted. Paternal Grandmother No problems noted. Maternal Aunt Cancer Sister Colon cancer Son No problems noted. Daughter No problems noted. Surgical History Surgical History S/P total right hip arthroplasty History of excision of lesion (10/20/23) History of total hip arthroplasty S/P gastric bypass History of surgery on lower extremity (01/25/23) History of surgery H/O colonoscopy History of cataract extraction History of bilateral tubal ligation History of tonsillectomy Social History Social History Household Members: None Housing: Other Housing Other:: Mobile home Are you a primary long term care administrator to a significant other at home: No Do you presently have visiting nurse or other home services: Yes (Wound Care) Alcohol intake: former Patient Tobacco Use Status: Former Tobacco user Tobacco use type: Cigarette Years Smoked: 40 e-Cigarette/Vaping Use: Currently Using Second Hand Smoke Exposure: No Advance Directives Date on File: 03/13/15 service: No Current occupational status: retired and other Current occupation: right handed Cognitive needs: No Hearing needs: No Vision needs: No Meds Allergies Allergy/AdvReac Type Severity Reaction Status Date / Time sucralfate [Carafate] Allergy Intermediate hives Verified 09/28/24 14:19 NSAIDS (Non-Steroidal AdvReac Intermediate cannot Verified 09/28/24 14:19 Anti-Inflamma take due to gastric bypass history Active Medications: Current Medications Acetaminophen (Acetaminophen 325 Mg Tablet) 650 mg PO Q4H PRN PRN Reason: Pain, Mild 1-3,fever,headache Last Admin: 10/01/24 20:04 Dose: 650 mg Apixaban (Apixaban 5 Mg Tablet) 5 mg PO BID [facility] Last Admin: 10/05/24 09:57 Dose: 5 mg Ascorbic Acid (Ascorbic Acid 500 Mg Tablet) 1,000 mg PO DAILY [facility] Last Admin: 10/05/24 09:56 Dose: 1,000 mg Escitalopram Oxalate (Escitalopram Oxalate 20 Mg Tablet) 20 mg PO DAILY [facility] Last Admin: 10/05/24 09:57 Dose: 20 mg Ferrous Sulfate (Ferrous Sulfate 324 Mg Tablet.) 324 mg PO BEDTIME [facility] Last Admin: 10/04/24 19:39 Dose: 324 mg Cefazolin Sodium/Dextrose (Ancef) 2 gm in 50 mls @ 100 mls/hr IV Q8H [facility] Last Admin: 10/05/24 15:31 Dose: 100 mls/hr Lorazepam (Lorazepam 0.5 Mg Tablet) 0.25 mg PO DAILY PRN PRN Reason: Anxiety Metoprolol Tartrate (Metoprolol Tartrate 25 Mg Tablet) 25 mg PO Q12H [facility]; Protocol Omeprazole (Omeprazole 40 Mg Capsule.) 40 mg PO DAILY@0630 [facility] Last Admin: 10/05/24 06:10 Dose: 40 mg Primidone (Primidone 50 Mg Tablet) 50 mg PO BEDTIME [facility] Last Admin: 10/04/24 19:39 Dose: 50 mg Vitamin D (Cholecalciferol (Vitamin D3) 25 Mcg Tablet) 50 mcg PO DAILY [facility] Last Admin: 10/05/24 09:57 Dose: 50 mcg Home Medications ?Medication ?Instructions ?Recorded ?Confirmed ?Last Taken ?Type ferrous sulfate 325 mg (65 mg 325 mg PO BEDTIME 04/02/20 09/28/24 Unknown History iron) tablet (Feosol) escitalopram oxalate 20 mg tablet 20 mg PO DAILY 07/30/20 09/28/24 01/24/23 History (Lexapro) lorazepam 0.5 mg tablet 0.25 mg PO DAILY PRN Anxiety 06/24/22 09/28/24 01/24/23 History primidone 50 mg tablet 50 mg PO BEDTIME 10/12/23 09/28/24 Unknown History alendronate 70 mg tablet (Fosamax) 70 mg PO [place] 08/17/24 09/28/24 Unknown History ascorbic acid (vitamin C) 250 mg 1,000 mg PO DAILY 09/08/24 09/28/24 Unknown History tablet cholecalciferol (vitamin D3) 50 50 mcg PO DAILY 09/22/24 09/28/24 Unknown History mcg (2,000 unit) capsule acetaminophen 325 mg tablet 650 mg PO Q6H PRN Pain 09/28/24 09/28/24 Unknown History aripiprazole 10 mg tablet 10 mg PO DAILY 09/28/24 09/28/24 Unknown History bupropion HCl 150 mg 24 hr tablet, 150 mg PO DAILY 09/28/24 09/28/24 Unknown History extended release bupropion HCl 300 mg 24 hr tablet, 300 mg PO DAILY 09/28/24 09/28/24 Unknown History extended release hydrochlorothiazide 25 mg tablet 25 mg PO DAILY 09/28/24 09/28/24 Unknown History omeprazole 40 mg capsule,delayed 40 mg PO DAILY@0630 09/28/24 09/28/24 Unknown History release Physical Exam Vital Signs: Last Vital Signs Temp 97.6 F 10/05/24 11:34 Pulse 69 10/05/24 11:34 Resp 18 10/05/24 11:34 BP 133/62 10/05/24 11:34 Pulse Ox 98 10/05/24 11:34 O2 Del Method Room Air 10/05/24 11:34 BMI result Body Mass Index 33.6 Const General: no acute distress, alert and awake Resp Effort & Inspection: normal respiratory effort and able to speak in complete sentences Auscultation: clear to auscultation bilaterally Cardio Rate: regular rate Rhythm: regular rhythm Heart sounds: S1 normal heart sound present and S2 normal heart sound present GI Palpation (GI): Soft to palpation and nontender General: Yes no CVA tenderness Back/Spine/Pelvis Back: no CVA tenderness Extrem General: No edema Results Lab Results 10/04/24 07:14 10/04/24 07:14 Lab results: Chemistry 10/03/24 10/04/24 06:12 07:14 Sodium 144 144 Potassium 3.5 3.6 Carbon Dioxide 26 27 BUN 27 H 26 H Creatinine 1.24 1.12 Calcium 9.1 D 9.2 Phosphorus 3.6 Hematology 10/03/24 10/04/24 06:12 07:14 WBC 6.0 5.0 Hgb 9.9 L 9.3 L Plt Count 310 D 331 Assessment and Plan (1) Acute kidney injury superimposed on CKD: Status: Acute Plan Patient with CKD, ANIYA (likely ATN from shock) resolved patient is cleared for PICC line insertion recommend avoid nephrotoxins blood pressures acceptable patient should follow up with Dr Ocampo as outpatient upon discharge Discussed with Dr Ocampo Procedures Date of Service Date of Service: 10/05/24
--- NOTE | 2024-10-05 15:49 | HO.PM.IMPN ---
Subjective Subjective Date of Service: 10/05/24 Interval History: seen and examined this morning Follow-up for sepsis, cellulitis, bacteremia Awake, alert, feeling well. No specific complaints. Wants to go home Review of Systems Review of Systems: Yes all other systems are reviewed and are negative Constitutional Constitutional: Denies chills and Denies fever(s) Cardiovascular Cardiovascular: Denies chest pain, Denies palpitations and Denies dyspnea Respiratory Respiratory: Denies cough and Denies dyspnea Endocrine Endocrine: Denies palpitations Physical Exam Vital Signs: Vital Signs: Last Vital Signs Temp 97.6 F 10/05/24 11:34 Pulse 69 10/05/24 11:34 Resp 18 10/05/24 11:34 BP 133/62 10/05/24 11:34 Pulse Ox 98 10/05/24 11:34 O2 Del Method Room Air 10/05/24 11:34 BMI result Body Mass Index 33.6 Const: General: cooperative, comfortable, no acute distress, alert and awake Nutritional Appearance: average body habitus Orientation/consciousness: patient oriented x3 Resp: Effort & Inspection: normal respiratory effort, able to speak in complete sentences, no respiratory distress and no use of accessory muscles Cardio: Rate: regular rate Skin: Other: no residual erythema of left leg Neuro: General: patient oriented x3, moves all extremities and CN's II-XI intact bilaterally Objective Data Active Medications Acetaminophen (Acetaminophen 325 Mg Tablet) 650 mg PO Q4H PRN PRN Reason: Pain, Mild 1-3,fever,headache Last Admin: 10/01/24 20:04 Dose: 650 mg Documented By: LILIANA Apixaban (Apixaban 5 Mg Tablet) 5 mg PO BID [facility] Last Admin: 10/05/24 09:57 Dose: 5 mg Documented By: KORY Ascorbic Acid (Ascorbic Acid 500 Mg Tablet) 1,000 mg PO DAILY [facility] Last Admin: 10/05/24 09:56 Dose: 1,000 mg Documented By: KORY Escitalopram Oxalate (Escitalopram Oxalate 20 Mg Tablet) 20 mg PO DAILY [facility] Last Admin: 10/05/24 09:57 Dose: 20 mg Documented By: KORY Ferrous Sulfate (Ferrous Sulfate 324 Mg Tablet.) 324 mg PO BEDTIME [facility] Last Admin: 10/04/24 19:39 Dose: 324 mg Documented By: DANIE Cefazolin Sodium/Dextrose (Ancef) 2 gm in 50 mls @ 100 mls/hr IV Q8H [facility] Last Admin: 10/05/24 15:31 Dose: 100 mls/hr Documented By: KORY Lorazepam (Lorazepam 0.5 Mg Tablet) 0.25 mg PO DAILY PRN PRN Reason: Anxiety Metoprolol Tartrate (Metoprolol Tartrate 25 Mg Tablet) 25 mg PO Q12H [facility]; Protocol Omeprazole (Omeprazole 40 Mg Capsule.Dr) 40 mg PO DAILY@0630 [facility] Last Admin: 10/05/24 06:10 Dose: 40 mg Documented By: DANIE Primidone (Primidone 50 Mg Tablet) 50 mg PO BEDTIME [facility] Last Admin: 10/04/24 19:39 Dose: 50 mg Documented By: DANIE Vitamin D (Cholecalciferol (Vitamin D3) 25 Mcg Tablet) 50 mcg PO DAILY [facility] Last Admin: 10/05/24 09:57 Dose: 50 mcg Documented By: KORY Labs 10/04/24 07:14 10/04/24 07:14 Microbiology Microbiology Results: Microbiology 09/30/24 10:44 Blood Culture - Final Blood - Venous No growth after 5 days. 09/30/24 10:44 Blood Culture - Final Blood - Venous No growth after 5 days. Assessment and Plan (1) MSSA bacteremia: Status: Acute Plan 78F PMH chronic right hip wound, ckd III, htn ,pafib on eliquis, elenita, mood disorder, presented 09/30/24 with RLE erythema complicated by septic shock, aniya, admitted to icu for pressor support, found to have strep pyogenes bacteremia and mssa in wound, no deep infection identified, transitioned to rocephin and weaned off pressors, downgraded 10/03/24 Septic shock due to right lower extremity cellulitis complicated by , was on pressors in ICU Wound is growing MSSA and strep pyogenes; blood cultures growing strep pyogenes Continue ceftriaxone, blood cultures negative since 09/30/2024. seen by ortho: has history right hip seroma septic shock in August 2024. On this occasion No evidence of right hip hardware infection based off absence of hardware failure on imaging and no evidence of abscess, no evidence of osteo. 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
--- NOTE | 2024-10-05 17:28 | HO.PICC ---
PICC Line Insertion NPICC Diagnosis: bacteremia Indication: half-way ABT Pertinent Labs: reviewed Technique: Following informed consent including risks, benefits and alternatives and using sterile technique including cap and mask, sterile gown, glove and drape, the right arm was prepped and draped in the usual sterile fashion of full barrier technique with CHG. Following completion of [place] Protocol the skin and soft tissues were anesthetized with 1% Lidocaine plain. Using ultrasound guidance, right basilic vein access was obtained. Over an 0.018 wire through peel-away sheath, a 4fr single lumen PASV PICC line was positioned. Catheter length is 39cm internal length, 0cm external length, for a total trimmed length of 39cm. The procedure was performed [facility]. Tip verification was performed by Cheyanne Valdes with Sherlock 3CG. Tip located in SVC. Ultrasound was used to document vein patency and for needle entry. A formal ultrasound picture and cardiac rhythm strip was recorded. Vascular Apartment Maintenance Worker has released the line for use and it is currently dressed with a StatLock, Tegaderm, and CHG disc. Verification has been performed for blood return and line patency. Arm Circumference: 32cm Equipment: MashON PowerPICC Solo catheter with sherlock 3CG tip Catheter Type: 4FR single lumen PASV Lot #: [id number]
[2024-10-05] MEDS: Primidone 50 MG TABLET PO (20:04)
[2024-10-05] MEDS: Ferrous Sulfate 324 MG TABLET.DR PO (20:04)
[2024-10-06 03:21] VITALS: BP 110/69; PULSE 74; RESP 18; TEMP 36.6; O2SAT 95
[2024-10-06] MEDS: Omeprazole 40 MG CAPSULE.DR PO (05:06)
[2024-10-06] MEDS: ceFAZolin Sodium/Dextrose,Iso 2 GM/50 ML PIGGYBACK IV ×2 (05:06→13:13)
[2024-10-06] MEDS: 0.9 % Sodium Chloride Flush 10 ML SYRINGE IVFLUSH ×2 (05:10→07:51)
[2024-10-06 06:58] VITALS: BP 117/56; PULSE 76; RESP 16; TEMP 36; O2SAT 97
[2024-10-06] MEDS: Metoprolol Tartrate 25 MG TABLET PO (07:50)
[2024-10-06] MEDS: Escitalopram Oxalate 20 MG TABLET PO (07:50)
[2024-10-06] MEDS: Ascorbic Acid 500 MG TABLET 1000 MG PO (07:51)
[2024-10-06] MEDS: Cholecalciferol (Vitamin D3) 25 MCG TABLET 50 MCG PO (07:51)
--- NOTE | 2024-10-06 10:43 | MHC.CM.PN ---
PT MEDICALLY CLEARED FOR DC HOME W/NEW [facility] CARE FOR 6WKS IV KEFZOL AND HVNA, PT WILL DC AFTER 2PM DOSE OF IV ABX AND DTR WILL RETURN TO TRANSPORT PT.
[2024-10-06 11:40] VITALS: BP 134/63; PULSE 85; RESP 12; TEMP 36.9; O2SAT 97
--- NOTE | 2024-10-06 11:57 | P.DS_ITS ---
DS: Providers Provider Date of Service: 10/06/24 Date of admission: 09/28/24 16:41 Date of discharge: 10/06/24 Primary care physician: Kayla Smith MD Consults: 09/28/24 19:44 Consult to Wound Care Routine Reason for consultation: Chronic right hip wound with right lower leg redness/rash 09/29/24 00:00 Consult to Wound Care Routine Reason for consultation: chronic r hip wound 10/02/24 15:07 Consult to Infectious Diseases Routine [place]ing [place] [facility] [place] [facility] Reason for consultation: strep bacteremia, mssa in wound 10/03/24 13:28 Consult to Orthopedics Routine Consulting Provider: [facility] [place] [facility] Reason for consultation: ?infected right hip hardware Attending physician on discharge: Zacarias Smith Discharging clinician: Stefany Kumar DS: Diagnosis Discharge Diagnosis (1) Acute kidney injury superimposed on CKD: Status: Acute (2) MSSA bacteremia: Status: Acute DS: Summary Hospital Course Hospital Course: From H&P on the day of admission 78-year-old female with underlying history of chronic right hip wound, chronic kidney disease stage 3, hypertension, atrial fibrillation currently on Eliquis, obstructive sleep apnea, COPD, who is admitted and discharged from this hospital for 10 days in mid August due to septic shock in the setting of right chronic hip wound infection.? At the time she had developed atrial fibrillation with rapid ventricular response, she had require ICU admission her hemodynamic stabilization placed on Levophed and phenylephrine, subsequently patient was discharged with doxycycline and Augmentin which she finished at the end of August. The pt presented to the emergency room today with complaints of malaise, fever, chills and a right lower extremity redness that has developed over the past 2 days.? The emergency room her workup showed the patient was tachycardic at 131 beats per minute, febrile at 103.8 F although she was normotensive; a white count over 17,000; H and H 9.6 and 29.4 respectively, platelets 201, no left shift, sodium 134, potassium 3.8, chloride 102, carbon dioxide 21, anion gap 15, BUN 29, creatinine 2.31 (1.1) lactic acid 2.1, improved to 2.0, albumin 3.4.? CRP 21.26. ? EKG to my view shows atrial fibrillation with rapid ventricular response rate of 130.? No ST elevations, no ST depressions.? T3 0 8.? This was compared to study from August of this year. ?No images. ?and evidence of end-organ damage with a new onset acute kidney injury on chronic kidney disease. ??Patient was treated with vancomycin and Zosyn, she was given 30 mL per kg of IV fluids.? The patient deteriorated, become hypotensive despite of IVF, requiring vasopressor support. The patient will be admitted to the ICU. Currently no further or new complaints. Septic shock due to right lower extremity cellulitis complicated by,, was on pressors in ICU Wound is growing MSSA and strep pyogenes; blood cultures growing strep pyogenes Continue ceftriaxone, blood cultures negative since 09/30/2024. seen by ortho: has history right hip seroma septic shock in August 2024. On this occasion seen by ortho No evidence of right hip hardware infection based off absence of hardware failure on imaging and no evidence of abscess, no evidence of osteo. No orthopedic intervention for right hip hardware Continue medical management and wound care ID rec 6 weeks of IV ancef - end date 11/11. Patient did not want to go to short- term rehab, she and her daughter feel comfortable administering antibiotics. They had teaching, PICC line was placed and she will be discharged home to complete course of antibiotics. Right Hip - Cleanse and irrigate with NS, pat dry. Apply skin prep to periwound lightly pack wound bed with Durafiber AG followed by foam dressing. Change every other day. recommend outpatient follow up in wound care clinic Time Attestation Discharge Coordination Time (in mins): 36 Quality: Safe Use of Opioids Does Pt have an Active Cancer Diagnosis on the Problem List?: No Quality: Stroke Does the patient have a stroke diagnosis?: No Physical Exam Vital Signs: Vital Signs: Last Vital Signs Temp 98.5 F 10/06/24 11:40 Pulse 85 10/06/24 11:40 Resp 12 10/06/24 11:40 BP 134/63 10/06/24 11:40 Pulse Ox 97 10/06/24 11:40 O2 Del Method Room Air 10/06/24 11:40 BMI result Body Mass Index 33.6 Const: General: cooperative, comfortable, no acute distress, alert and awake Nutritional Appearance: average body habitus Orientation/consciousness: patient oriented x3 Resp: Effort & Inspection: normal respiratory effort, able to speak in complete sentences, no respiratory distress and no use of accessory muscles Cardio: Rate: regular rate Skin: Other: no residual erythema of left leg Neuro: General: patient oriented x3, moves all extremities and CN's II-XI intact bilaterally DS: Data Data Completed and Pending Completed studies during hospitalization [Text1]: Procedures Excision of Right Upper Leg Subcutaneous Tissue and Fascia, Open Approach (01/25/23) Insertion of Infusion Device into Right Atrium, Percutaneous Approach (08/17/24) Introduction of Vasopressor into Central Vein, Percutaneous Approach (08/17/24) Ultrasonography of Superior Vena Cava, Guidance (08/17/24) Discharge Plan Discharge Anticipated Discharge Date/Time: 10/06/24 12:02 Patient Disposition: Home Health Service Discharge Diagnosis: cellulitis of right leg Referrals: Xiomy Simon MD [Physician] - 6 Weeks Kayla Smith MD [Primary Care Provider] - 1 Week Discharge Medications: Continued metoprolol tartrate 25 mg tablet 25 mg PO Q12H Qty: 60 0RF Protocol: Hold for SBP/HR < HOLD for SBP < : 90 HOLD for HR < : 60 primidone 50 mg Tablet 50 mg PO BEDTIME alendronate [Fosamax] 70 mg tablet 70 mg PO [place] acetaminophen 325 mg Tablet 650 mg PO Q6H PRN (Reason: Pain) omeprazole 40 mg capsule,delayed release(DR/EC) 40 mg PO DAILY@0630 escitalopram oxalate [Lexapro] 20 mg tablet 20 mg PO DAILY ferrous sulfate [Feosol] 325 mg (65 mg iron) tablet 325 mg PO BEDTIME lorazepam 0.5 mg tablet 0.25 mg PO DAILY PRN (Reason: Anxiety) Motegrity 2 mg tablet 2 mg PO DAILY Qty: 90 3RF cholecalciferol (vitamin D3) 50 mcg (2,000 unit) capsule 50 mcg PO DAILY ascorbic acid (vitamin C) 250 mg tablet 1,000 mg PO DAILY Held Eliquis 5 mg tablet 5 mg PO BID Qty: 60 0RF Hold Instructions: resume eliquis in am 10/07 hydrochlorothiazide 25 mg tablet 25 mg PO DAILY Hold Instructions: hold until follow up with PCP bupropion HCl 300 mg tablet extended release 24 hr 300 mg PO DAILY Hold Instructions: This medication was held during hospitalization, please reach out to subscriber to resume bupropion HCl 150 mg tablet extended release 24 hr 150 mg PO DAILY Hold Instructions: This medication was placed on hold during hospitalization, please reach out to prescriber to resume aripiprazole 10 mg Tablet 10 mg PO DAILY Hold Instructions: This medication was held during hospital stay. Please reach out to subscriber Discharge Orders: Discharge Order (Routine); Ordered 10/06/24 Ordered By: Stefany Kumar Activity on Discharge: As tolerated Stand Alone Forms: Patient Portal Discharge page Print Language: Maldivian Care Plan Goals: See below Health Concerns: Septic shock due to right lower extremity cellulitis MSSA and strep pyogenes bacteremia ANIYA on CKD-resolved Plan of Treatment: Complete 6 weeks of IV Ancef. CBC, BMP weekly. outpatient follow-up with Infectious diseases Bupropion and aripiprazole were placed on hold during this hospitalization, please reach out to your psychiatric prescriber to determine if/when to resume these medications Resume Eliquis starting tomorrow morning Call to schedule follow-up appointment with Infectious diseases Right Hip - Cleanse and irrigate with NS, pat dry. Apply skin prep to periwound lightly pack wound bed with Durafiber AG followed by foam dressing. Change every other day. call to schedule Outpatient follow-up in Wound Care Clinic Assessment: See discharge summary
--- NOTE | 2024-10-06 12:19 | W.MHC.F2F ---
Service Date Service Date: 10/06/24 Encounter Date of encounter: 10/06/24 Reasons for Services Signs and symptoms assessed: needs shelter for assistance in IV antibiotic administration, blood pressure monitoring, wound care Reason for shelter: wound care (Right Hip - Cleanse and irrigate with NS, pat dry. Apply skin prep to periwound lightly pack wound bed with Durafiber AG followed by foam dressing. Change every other day.) and medication treatment MD Overseeing Care: Kayla Smith Homebound: Leaving the home is medically contraindicated at this time without the asist of a device and/or another person due th the listed conditions above and below. Reason homebound: weakness related to hospital stay Certification: Based on the above findings, I certify that this patient is confined to the home and needs intermittent shelter care, physical therapy and/or speech therapy, or continues to need occupational therapy. The patient is under my care, and I have initiated the establishment of the plan of care. The patient will be followed by a physician who will periodically review the plan of care. Time Spent With Patient Time: Total time managing care of this patient today ____ minutes.
== END 2024-10-06 14:02 | disposition home health service (06) | DRG 871 ==
LOC: HO.ED 16:50 → HO.EDOVER 16:54 → HO.ICU 18:05 → HO.IMC 10-02 13:21
PROVIDERS: Internal Medicine; Physician Assistant Medical; Admitting Provider Internal Medicine Pulmonary Disease; Emergency Provider Emergency Medicine Emergency Medical Services; PCP Internal Medicine; Visit Provider Physician Assistant Medical
DX: A41.9 Sepsis, unspecified organism (principal); N17.0 Acute kidney failure with tubular necrosis; R65.21 Severe sepsis with septic shock; E87.1 Hypo-osmolality and hyponatremia; L03.115 Cellulitis of right lower limb; N18.31 Chronic kidney disease, stage 3a; B95.0 Streptococcus, group A, as the cause of diseases classified elsewhere; B95.61 Methicillin susceptible Staphylococcus aureus infection as the cause of diseases classified elsewhere; E66.01 Morbid (severe) obesity due to excess calories; G47.33 Obstructive sleep apnea (adult) (pediatric); J44.9 Chronic obstructive pulmonary disease, unspecified; Z68.36 Body mass index [BMI] 36.0-36.9, adult; I12.9 Hypertensive chronic kidney disease with stage 1 through stage 4 chronic kidney disease, or unspecified chronic kidney disease; E86.1 Hypovolemia; D63.1 Anemia in chronic kidney disease; Z79.01 Long term (current) use of anticoagulants; Z79.899 Other long term (current) drug therapy
CPT/HCPCS: 36415; 36573; 71045; 73700; 80048; 80053; 80076; 80202; 81001; 82040; 82803; 83605; 83735; 84100; 85007; 85025; 85027; 85610; 85652; 85730; 86140; 87040; 87070; 87077; 87086; 87147; 87186; 87205; 93005; 93242; 93306; 94660; 99285; C1751; J0690; J0696; J1160; J1720; J1938; J2543; J2760; J3010; J3370; J7120; P9047

== ENCOUNTER → 2024-09-28 14:19 | Outpatient (BNV) | payer MEDICARE, MEDICAID, SELFPAY | PROVIDERS: Admitting Provider Internal Medicine Pulmonary Disease; Emergency Provider Emergency Medicine Emergency Medical Services; Visit Provider Internal Medicine Cardiovascular Disease | DX: I48.91 Unspecified atrial fibrillation (principal); I45.10 Unspecified right bundle-branch block | CPT/HCPCS: 93010 ==

== ENCOUNTER 2024-09-28 16:41 | Outpatient (BNV) | payer MEDICARE, MEDICAID, SELFPAY | END 2024-09-28 21:14 | PROVIDERS: Admitting Provider Internal Medicine Pulmonary Disease; Emergency Provider Emergency Medicine Emergency Medical Services; Visit Provider Radiology Diagnostic Radiology | DX: R60.0 Localized edema (principal) | CPT/HCPCS: 73700 ==

== ENCOUNTER 2024-09-28 16:41 | Outpatient (BNV) | payer MEDICARE, MEDICAID, SELFPAY | END 2024-10-05 17:40 | PROVIDERS: Admitting Provider Internal Medicine Pulmonary Disease; Emergency Provider Emergency Medicine Emergency Medical Services; PCP Internal Medicine; Visit Provider Radiology Diagnostic Radiology | DX: Z45.2 Encounter for adjustment and management of vascular access device (principal) | CPT/HCPCS: 71045 ==

== ENCOUNTER 2024-09-28 16:41 | Outpatient (BNV) | payer MEDICARE, MEDICAID, SELFPAY | END 2024-10-04 07:00 | PROVIDERS: Admitting Provider Internal Medicine Pulmonary Disease; Emergency Provider Emergency Medicine Emergency Medical Services; PCP Internal Medicine; Visit Provider Internal Medicine Cardiovascular Disease | DX: I35.0 Nonrheumatic aortic (valve) stenosis (principal); I27.20 Pulmonary hypertension, unspecified; I34.0 Nonrheumatic mitral (valve) insufficiency; I36.1 Nonrheumatic tricuspid (valve) insufficiency | CPT/HCPCS: 93306 ==

== ENCOUNTER → 2024-09-28 16:41 | Outpatient (BNV) | payer MEDICARE, MEDICAID, SELFPAY | PROVIDERS: Admitting Provider Internal Medicine Pulmonary Disease; Emergency Provider Emergency Medicine Emergency Medical Services; Visit Provider Physician Assistant Medical | DX: A41.9 Sepsis, unspecified organism (principal); R65.21 Severe sepsis with septic shock; N17.9 Acute kidney failure, unspecified; N18.30 Chronic kidney disease, stage 3 unspecified | CPT/HCPCS: 99232; 99291 ==

== ENCOUNTER → 2024-09-28 16:41 | Outpatient (BNV) | payer MEDICARE, MEDICAID, SELFPAY | PROVIDERS: Admitting Provider Internal Medicine Pulmonary Disease; Emergency Provider Emergency Medicine Emergency Medical Services; Visit Provider Physician Assistant | DX: S71.101A Unspecified open wound, right thigh, initial encounter (principal) | CPT/HCPCS: 99221 ==

== ENCOUNTER → 2024-09-28 16:41 | Outpatient (BNV) | payer MEDICARE, MEDICAID, SELFPAY | PROVIDERS: Admitting Provider Internal Medicine Pulmonary Disease; Emergency Provider Emergency Medicine Emergency Medical Services; Visit Provider Internal Medicine Pulmonary Disease | DX: R78.81 Bacteremia (principal); B95.61 Methicillin susceptible Staphylococcus aureus infection as the cause of diseases classified elsewhere; B95.5 Unspecified streptococcus as the cause of diseases classified elsewhere; I48.91 Unspecified atrial fibrillation; A41.9 Sepsis, unspecified organism; R65.21 Severe sepsis with septic shock; N17.9 Acute kidney failure, unspecified | CPT/HCPCS: 99291 ==

== ENCOUNTER → 2024-09-28 16:41 | Outpatient (BNV) | payer MEDICARE, MEDICAID, SELFPAY | PROVIDERS: Admitting Provider Internal Medicine Pulmonary Disease; Emergency Provider Emergency Medicine Emergency Medical Services; PCP Internal Medicine; Visit Provider Internal Medicine | DX: R78.81 Bacteremia (principal); B95.5 Unspecified streptococcus as the cause of diseases classified elsewhere | CPT/HCPCS: 99232 ==

== ENCOUNTER → 2024-09-28 16:41 | Outpatient (BNV) | payer MEDICARE, MEDICAID, SELFPAY | PROVIDERS: Admitting Provider Internal Medicine Pulmonary Disease; Emergency Provider Emergency Medicine Emergency Medical Services; Visit Provider Internal Medicine | DX: L03.115 Cellulitis of right lower limb (principal) | CPT/HCPCS: 99232; 99233 ==

== ENCOUNTER → 2024-09-28 16:41 | Outpatient (BNV) | payer MEDICARE, MEDICAID, SELFPAY | PROVIDERS: Admitting Provider Internal Medicine Pulmonary Disease; Emergency Provider Emergency Medicine Emergency Medical Services; PCP Internal Medicine; Visit Provider Nurse Practitioner Family | DX: N17.9 Acute kidney failure, unspecified (principal); N18.9 Chronic kidney disease, unspecified | CPT/HCPCS: 99221 ==

== ENCOUNTER 2024-10-10 09:21 | Outpatient (AMB) | payer MEDICARE, MEDICAID, SELFPAY ==
[2024-10-10 09:56] VITALS: BP 114/62; PULSE 81; BMI 34.6
--- NOTE | 2024-10-10 09:56 | MHC.OFFVIS ---
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: No Road Train Driver: Road Train Driver Present Allergies sucralfate [Carafate] Allergy (Intermediate, Verified 10/10/24 09:58) hives NSAIDS (Non-Steroidal Anti-Inflamma Adverse Reaction (Intermediate, Verified 10/10/24 09:58) cannot take due to gastric bypass history Medication List - Last Reconciled 10/10/24 by DEB Rossi acetaminophen 650 mg PO Q6H PRN alendronate (Fosamax) 70 mg PO [place] apixaban (Eliquis) 5 mg PO BID aripiprazole 10 mg PO DAILY ascorbic acid (vitamin C) 1,000 mg PO DAILY cholecalciferol (vitamin D3) 50 mcg PO DAILY escitalopram oxalate (Lexapro) 20 mg PO DAILY ferrous sulfate (Feosol) 325 mg PO BEDTIME lorazepam 0.25 mg PO DAILY PRN metoprolol tartrate 25 mg See Protocol PO Q12H Motegrity (prucalopride) 2 mg PO DAILY NS omeprazole 40 mg PO DAILY@0630 primidone 50 mg PO BEDTIME ropinirole 0.25 mg PO DAILY HPI HPI f/u after testing [facility] [place]: Details: Mayra is a 78-year-old female with past medical history of morbid obesity status post bariatric surgery, obstructive sleep apnea, hypertension, CKD, atrial fibrillation, who was recently admitted to [facility] in mid August 2024 with septic shock in the setting of right hip wound infection. At that time she did have AFib RVR that was managed with rate control. She was readmitted 09/28/2024 with fever chills, tachycardia and treated for bacteremia, septic shock due to right lower extremity cellulitis requiring pressors and ICU care, atrial fibrillation with RVR treated with heart rate control. He was discharged on 10/06/2024 and now presents for follow-up. Today she reports she has been doing well since her hospital discharge. She still has some swelling in her right lower extremity. She has no concerning symptoms at this time. No chest discomfort at rest or with activity. No shortness of breath, PND, orthopnea. No heart palpitations, lightheadedness, presyncope. She reports light activities and ambulates with a cane. Compliant with meds and no bleeding issues. Daughter is present. [facility] Medical History (Updated 10/10/24 @ 13:00 by Sandrita Gomez, DE ALCOHOLIZER-C) Hospital discharge follow-up Acute kidney injury superimposed on CKD Thoracolumbar back pain Decreased GFR ANIYA (acute kidney injury) Self-care deficit in patient living alone Chronic wound Seroma of musculoskeletal structure after musculoskeletal system procedure New onset a-fib History of septic shock Unspecified open wound, right hip, initial encounter Sleep disorder Abnormal skin growth Tubular adenoma of colon Ex-smoker Mitral annular calcification Aortic valve calcification Stasis edema of both lower extremities Family history of colon cancer Nail fungus Nocturnal hypoxemia Right bundle branch block Premature atrial contractions Hip pain, right Soft tissue infection Sepsis Septic shock Acute hypotension Oropharyngeal dysphagia Post-COVID chronic dyspnea Chronic GERD Peripheral vascular disease SOULEYMANE (obstructive sleep apnea) Wound, open, hip or thigh with complication Encounter for general adult medical examination with abnormal findings Preoperative cardiovascular examination Change in bowel movement Traumatic seroma of right thigh Postprocedural seroma of skin and subcutaneous tissue following other procedure Open wound of right hip and thigh Right rib fracture Menopause Pain management Pain management contract agreement Open wound of right lower leg with complication Shortness of breath Cough Edema Influenza A H1N1 infection Cellulitis of right leg Varicose veins of right lower extremity with inflammation Enterococcus faecalis infection Abscess Hip pain, right Obesity Lymphedema Morbid obesity due to excess calories Pre-op evaluation Colon cancer screening Medicare annual wellness visit, subsequent Family history of anesthesia complication Back pain Arthritis Renal calculi Post-influenza syndrome Tremor Peripheral vascular disease Right bundle branch block (RBBB) Aortic valve calcification Mitral annular calcification COPD (chronic obstructive pulmonary disease) Restrictive lung disease Depression, major, recurrent Hypertension, essential Surgical History S/P total right hip arthroplasty History of excision of lesion (10/20/23) History of total hip arthroplasty S/P gastric bypass History of surgery on lower extremity (01/25/23) History of surgery H/O colonoscopy History of cataract extraction History of bilateral tubal ligation History of tonsillectomy Family History Father No problems noted. Mother Alzheimer's disease Maternal Grandmother Cancer Maternal Grandfather No problems noted. Paternal Grandfather No problems noted. Paternal Grandmother No problems noted. Maternal Aunt Cancer Sister Colon cancer Son No problems noted. Daughter No problems noted. Social History Household Members: None Housing: Other Housing Other:: Mobile home Are you a primary healthcare administration internship to a significant other at home: No Do you presently have visiting nurse or other home services: Yes (Wound Care) Alcohol intake: former Patient Tobacco Use Status: Former Tobacco user Tobacco use type: Cigarette Years Smoked: 40 e-Cigarette/Vaping Use: Currently Using Second Hand Smoke Exposure: No Advance Directives Date on File: 03/13/15 service: No Current occupational status: retired and other Current occupation: right handed Cognitive needs: No Hearing needs: No Vision needs: No Female Reproductive History Menstrual Age of Menarche: 13 Review of Systems Const All systems reviewed & are unremarkable except as noted in HPI and below ENT Denies dizziness Card Denies chest pain, Denies chest pain at rest, Denies chest pain with activity, Denies rapid heart rate, Denies pedal edema, Denies edema, Denies leg edema, Denies lightheadedness, Denies palpitations, Denies dyspnea, Denies dyspnea on exertion and Denies orthopnea Resp Denies cough, Denies dyspnea and Denies dyspnea on exertion GI Denies hematochezia and Denies change in stool character Musc Details: lymphedema in legs, R>L Reports abnormal gait, Denies limited range of motion, Denies muscle cramps, Denies muscle weakness, Denies numbness, Denies radiating pain into limb, Denies stiffness and Denies tingling Neuro Reports abnormal gait, Denies dizziness, Denies numbness and Denies tingling Endo Denies palpitations Physical Exam Vital Signs: Last Vital Signs Pulse 81 10/10/24 09:56 BP 114/62 10/10/24 09:56 BMI result Body Mass Index 34.6 Const General: cooperative, healthy appearing, comfortable and no acute distress Orientation/consciousness: patient oriented x3 Neck Neck: Yes normal visual inspection and Yes no JVD Resp Effort & Inspection: normal respiratory effort Auscultation: clear to auscultation bilaterally, no rales, no rhonchi and no wheezes Cardio Rate: regular rate Rhythm: abnormal rhythm Heart sounds: S1 normal heart sound present, S2 normal heart sound present, no gallops, no murmurs and no rubs Neuro General: patient oriented x3 Extrem General: Yes normal to inspection, No no pedal edema and No calf tenderness Psych Appearance: grossly normal Mental Status: mental status grossly normal Speech and movement: Normal speech and movement present Results Reviewed Results Reviewed: Echocardiogram 10/04/2024 Conclusions: - 1. Normal LV ejection fraction of 60 65% with mild LVH 2. Biatrial enlargement, left greater than right 3. Moderately enlarged right ventricle with preserved contractility 4. Thickened aortic valve with mild calcific changes along with moderate mitral valve calcification with possible early mild aortic stenosis 5. No obvious vegetations noted although these can not be entirely ruled out, clinical correlation suggested 6. Mildly elevated right ventricular systolic pressure and mildly elevated right atrial pressures 7. No gross pericardial effusion Assessment & Plan Assessment & Plan (1) Atrial fibrillation: Code(s): I48.91 - Unspecified atrial fibrillation Category: Medical Plan: History of atrial fibrillation. Occurrence of AFib RVR during recent hospitalizations for sepsis. She is now on metoprolol tartrate 25 mg b.i.d. for heart rate control. She is on Eliquis for anticoagulation. Last EKG during her admission does show atrial fibrillation. Pulse is irregular on examination today. Will check Holter monitor to assess heart rate control and to see if AFib is persistent or paroxysmal. No med changes made. Plan to call her with test results. Cardiology office visit 3-4 months, sooner if needed. (2) Hypertension, essential: Code(s): I10 - Essential (primary) hypertension Category: Medical Plan: Blood pressure goal less than 130/80. Well controlled at this time. No med changes made. (3) SOULEYMANE (obstructive sleep apnea): Comment: PATIENT HAS PAST HISTORY OF OBSTRUCTIVE SLEEP APNEA AND STOPPED USING THE CPAP ABOUT 6 YEARS AGO. Code(s): G47.33 - Obstructive sleep apnea (adult) (pediatric) Category: Medical Plan: Untreated sleep apnea can contribute to her atrial fibrillation. (4) MSSA bacteremia: Code(s): R78.81 - Bacteremia; B95.61 - Methicillin susceptible Staphylococcus aureus infection as the cause of diseases classified elsewhere Category: Medical Plan: Based on discharge note has history right hip seroma septic shock in August 2024. On this occasion seen by ortho No evidence of right hip hardware infection based off absence of hardware failure on imaging and no evidence of abscess, no evidence of osteo. No orthopedic intervention for right hip hardware Continue medical management and wound care ID rec 6 weeks of IV ancef - end date 11/11. Echo did Not show evidence of vegetations. Clinically doing well at this time with no concerning symptoms. (5) Hospital discharge follow-up: Code(s): Z09 - Encounter for follow-up examination after completed treatment for conditions other than malignant neoplasm Category: Medical Plan: Discharge summaries reviewed Plan I discussed with the patient the significance of maintaining her current medication, Eliquis, to reduce her risk of stroke caused by atrial fibrillation and Metoprolol to control her heart rate. I explained how the Eliquis works by delaying clotting and the importance of adequate heart rate control with metoprolol. She was informed about wearing a heart monitor for a few days to evaluate the control over her atrial fibrillation. Potential bleeding risks associated with Eliquis were explained, and she was instructed on warning signs of bleeding that should prompt medical attention. Follow-up scheduling was outlined, with plans for periodic assessments to ensure continued cardiac function efficacy. The patient was receptive and understood the management plan's rationale. Orders: Orders ECG 3 day holter monitor Today DEB Rossi I48.91 - Unspecified atrial fibrillation Medications: Refilled metoprolol tartrate 25 mg See Protocol PO Q12H 60 tabs 5RF DEB Rossi Resumed apixaban (Eliquis) 5 mg PO BID 60 tabs 5RF DEB Rossi apixaban (Eliquis) 5 mg PO BID 60 tabs 0RF Kayla Smith MD Patient Instructions: - Continue taking Eliquis and metoprolol as prescribed. - Monitor for any signs of unusual bleeding and report them promptly. - Wear the heart monitor as instructed and return it for evaluation. - Expect a follow-up call regarding your heart monitor results. - Schedule a follow-up visit in three to four months for reassessment. - Stay active with walking as tolerated, but be mindful of your breathing. - Maintain current lifestyle adjustments for COPD management. Patient was informed and verbally consented to the use of an ambient scribe for clinic note documentation during this visit. Visit time spent on chart review, interview, assessment, orders, documentation. Coding Level of Care Code Est Pt Level 4 (90596) Complex EM visit Add On G2211 Diagnoses Atrial fibrillation I48.91 Hypertension, essential I10 SOULEYMANE (obstructive sleep apnea) G47.33 MSSA bacteremia R78.81; B95.61 Hospital discharge follow-up Z09 Time Spent (min) 30
--- OUTSIDE RECORDS SUMMARY | 2024-10-10 10:21 | XMS_ITS | Data Portability ---
Author Organization [place] [facility], [facility] Address [address] [place] [id number] Care Team Providers Care Compounding Technician Name Role Phone STEPHANIE MARIE Primary Care Provider [facility] OTHER Assessment Encounter Date Assessment Date Assessment [...] going to be 10+ hours, this was [facility] Exam: Vitals: VSS and afebrile Constitutional: 74 [...] scheduled Time On Scene with Patient: 00:42:25 [email or web address] Not available 05/07/2022 10:35:29 07/04/2022 07/04/2022 Brief [...] after care [facility] this [facility] [email or web address] Not available 07/04/2022 12:44:13 10/06/2022 10/06/2022 Brief [...] to patient. All questions answered. wound care [phone] - wound care states that they have no apts sooner than but will place pt on cancellation list [email or web address] Not available 10/06/2022 12:38:07 Plan of Treatment Reminders Order Date Submit Date Provider Last Modified By Organization Details Last Modified Time Details Appointments None recorded. Lab rapid SARS CoV 2 Ag, QL IA, respiratory specimen 2022 023 [email or web address] 5 [facility], [address] [place] [address], [address], 12:38:31 Referral None recorded. Procedures None recorded. Surgeries None recorded. Imaging XR, pelvis, 3 or more view - rule out osteomyelit is. tunneling wound over [facility]23 [facility] [address] [facility] [address], [place], [address], 3 11:01:28 XR, chest, 2 view 2021 022 [facility] [address] [facility], [place], [address], 2 11:58:06 Medication Orders doxycycline hyclate 100 mg capsule 2022 023 [id number], [address] [place], [address], 3 12:35:07 albuterol sulfate concentrate 2.5 mg/0.5 mL solution for nebulizatio n 2022 023 [email or web address] 5 [facility] #0693, [address] [place], [address], 3 12:38:23 ipratropium bromide 0.02 % solution for inhalation 2022 023 [email or web address] 5 [facility] #0693, [address] [place], [address], 3 12:38:34 prednisone 20 mg tablet 2022 023 [facility], [address] [place], [address], 3 12:02:14 prednisone 10 mg tablet 2022 023 maury [facility] #0693, [address] [place], [address], 3 12:02:10 amoxicillin 875 mg-potassiu m clavulanate 125 mg tablet 2021 022 [email or web address] 5 [facility] #0693, [address] [place], [address], 3 11:35:26 azithromyci n 250 mg tablet 2021 022 [email or web address] 5 [facility] #0693, [address] [facility] [place], [address], 3 11:35:33 albuterol sulfate concentrate 2.5 mg/0.5 mL solution for nebulizatio n [address]/Pharmacy #0693, [address] [facility] [place], [address], 2 10:12:45 ipratropium bromide 0.02 % solution for inhalation [address]/Pharmacy #0693, [address] [facility] [place], [address], 2 10:12:42 nystatin 100,000 unit/gram topical cream [address]/Pharmacy #0693, [address] [facility] [place], [address], 2 09:43:56 cephalexin 500 mg capsule 2021 022 [email or web address] 5 [facility] #0693, [address] [facility] [place], [address], 3 11:35:49 cephalexin 500 mg capsule 2021 022 [email or web address] 5 [facility] #0693, [address] [facility] [place], [address], 3 11:35:49 Patient TargetsNo targets recorded. Patient Instructions Encounter Date Encounter Id Patient Instructions Last Modified By Organization Details Last Modified Time 01/03/2022 [id number] candidiasis: car e instructions [email or web address] Not available [...] pain. [email or web address] Not available 01/03/2022 13:03:10 05/07/2022 [id number] start mucinex as directed to help thin mucous drink plenty of fluids continue humidifier/steam rest continue albuterol inhaler four times per day for cough/breathing can use peppermints for cough can use honey for cough *[facility] will call to schedule chest xray. Should be complete within the next 24hrs [facility] for recheck Please get to the ER if you are feeling worse [email or web address] Not available 05/07/2022 10:16:40 10/06/2022 [id number] Thank you for yo ur visit with [facility] today. You were seen today for treatment [...] in your condition between 8am-10pm, please call [facility] at [phone] to help navigate your care. [email or web address] Not available 10/06/2022 12:03:22 Reason for Referral None Reported. Results Created Date Observation Date Name Description Value Unit Range Abnormal Flag Note LastModifiedBy Organization Detail LastModifiedTime 07/04/19 23 07/04/2022 rapid SARS CoV 2 Ag, QL IA, respi rator y speci men Covid-19 (ref: neg) negati ve Not Available [facility] [address], [place], [address], 07/04/2022 11:44:48 07/04/19 23 07/04/2022 rapid SARS CoV 2 Ag, QL IA, respi rator y speci men Control Visual ized/V alid Not Available [facility] [address], [place], [address], 07/04/2022 11:44:48 07/04/19 23 07/04/2022 rapid SARS CoV 2 Ag, QL IA, respi rator y speci men Location [facility], [facility], [address] [facility], [place] [address], [id number] Not Available [facility] [address] [facility], [place], [address], 07/04/2022 11:44:48 05/08/20 22 05/08/2022 XR, chest [...] Leone M.D. 2021 11:53: 41 AM EST. [email or web address] [employer] [address] [facility] [address], [place], [address], 08/06/2022 12:49:04 10/08/19 23 10/07/2022 XR, pelvi [...] NGUYEN M.D. 023 10:47: 33 AM EDT. [email or web address] [employer] [address] [address], [place], [address], 10/07/2022 18:32:41 10/08/1910/07/2022 hip uni W or [...] NGUYEN M.D. 023 10:47: 33 AM EDT. [email or web address] [facility] [address] [facility] [address], [place], [address], 10/07/2022 18:32:16 Result Notes None recorded. 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 FADI Young [address], [place], [address], [place] [facility] 10/04/2021 10:27:45 Gastric bypass for obesity completed FADI Young [address], [place], [address], [place] [facility] 10/04/2021 10:28:00 bilateral extraction of cataracts completed FADI Young [address], [place], [address], [place] [facility] 10/04/2021 10:28:07 biopsy of breast completed FADI Young [address], [place], [address], [place] [facility] 10/04/2021 10:28:14 tonsilectomy/a denoids completed FADI Young [address], [place], [address], [place] [facility] 10/04/2021 10:29:26 Imaging Results None recorded. Procedure Notes None recorded. Medical Equipment None Reported. Allergies Allergen ID Allergen Name Allergen Category Reaction Reaction Severity Criticality Documentation Date Start Date Code Code System Note Provider Name and Address Organization Details Recorded Time 430160 Non-stero idal anti-infl ammatory agent (product) medicatio n Not available Not available Not available 10/04/2021 25301 005 SNOMED FADI Santiago [address] [place], [address], [place] [facility] 2 10:52:20 429264 sucralfat e medicatio n Not available Not available Not available 10/06/2022 98995 RxNorm Hollie Jiang NP [address] [place], [address], [place] [facility] [...] Available No t Available Vitals Date Recorded Body temperature Respiratory rate Oxygen saturation Oxygen saturation in Arterial blood by Pulse oximetry Heart rate Systolic blood pressure Diastolic blood pressure Provider Name and Address Organization Details Last Updated DateTime 3 97.5 [degF] 18 /min 95 % 95 % 90 /min 128 mm[Hg] 78 mm[Hg] Not Available [facility] 3 11:37:17 Date Recorded Respiratory rate Body temperature Oxygen saturation Oxygen saturation in Arterial blood by Pulse oximetry Heart rate Systolic blood pressure Diastolic blood pressure Provider Name and Address Organization Details Last Updated DateTime 2 18 /min 98.4 [degF] 95 % 95 % 60 /min 108 mm[Hg] 62 mm[Hg] Not Available [facility] 2 10:29:44 Date Recorded Oxygen saturation Oxygen saturation in Arterial blood by Pulse oximetry Body temperature Respiratory rate Heart rate Systolic blood pressure Diastolic blood pressure Provider Name and Address Organization Details Last Updated DateTime 3 97 % 97 % 98.2 [degF] 18 /min 65 /min 124 mm[Hg] 68 mm[Hg] Not Available [facility] 3 12:06:44 Date Recorded Body temperature Oxygen saturation Oxygen saturation in Arterial blood by Pulse oximetry Respiratory rate Heart rate Systolic blood pressure Diastolic blood pressure Provider Name and Address Organization Details Last Updated DateTime 2 98.3 [degF] 98 % 98 % 16 /min 82 /min 126 mm[Hg] 74 mm[Hg] Not Available [facility] 2 12:32:06 Date Recorded Respiratory rate Provider Name a nd Address Organization Details Last Updated DateTime 05/07/2022 20 /min FADI NASCIMENTO [address], [place], [address], [place] [facility] 05/07/2022 10:29:35 Date Recorded Body temperature Respiratory [...] % 110 mm[Hg] 72 mm[Hg] Not Available [facility] 2 09:48:07 Social History Question Answer Notes LastModified by Organizat ion Details LastModified Time Tobacco Smoking Status Former Smoker FADI Young [address] [place], [address], [place] [facility] 10/04/2021 10:29:06 Do You Have An Advance Directive? Yes [email or web address] Information not available 10/06/2022 What Is Your Code Status? Full Code Information not available 10/06/2022 Within The Past 12 Months, Has It Happened That The Food You Bought Just Didn't Last And You Didn't Have Money To Get More. Never True [email or web address] Information not available 10/06/2022 Within The Past 12 Months, Have You Worried That Your Food Would Run Out Before You Got Money To Buy More. Never True Information not available 10/06/2022 Fall Risk: Do You Feel Unsteady When Standing Or Walking? No [email or web address] Information not available 10/06/2022 Excessive Alcohol Or Drug Use No [email or web address] Information not available 10/06/2022 Does This Patient Have A PCP? Yes [email or web address] Information not available 10/06/2022 ADL: Do You Need Help With Daily Activities Such As Bathing, Preparing Meals, Dressing, Or Cleaning? No Information not available 10/06/2022 What Is Your Current Pack Years? 10-19packye ars [email or web address] Information not available 10/06/2022 Sex: Unknown Functional [...] N Cancer N Dementia N Stroke N COPD N Depression Y Hypothyroidism N Asthma N High Cholesterol N Rheumatoid Arthritis N Pulmonary Embolism N Hypertension Y A-fib N Osteoporosis N Kidney Disease N Gynecological HistoryNo gynecological history recorded. Obstetrics History GPAL:G 0 P 0 0 0 0 Past Encounters Encounter ID Performer Location Encounter Start Date Encounter Closed Date Diagnosis/Indication Diagnosis SNOMED-CT Code Diagnosis ICD10 Code Diagnosis Note [id number] FADI Arevalo [facility] [address] [facility] [place] [address] 10/04/2021 09:57:17 10/09/2021 09:37:20 Wound cellulitis 589600874 L03.90 [id number] ASIF LOVELL NP [facility] [address] [place] [address] 01/03/2022 12:26:14 01/05/2022 09:24:30 Candidal intertrigo 547528701 B37.2 [id number] FADI NASCIMENTO [facility] [address] [place] [address] 05/07/2022 09:43:13 05/10/2022 20:18:20 Community acquired pneumonia 744918173 J18.9 Status of condition: Acute. Testing/Re sults:CXR Discussion :Likely pneumonia at time [...] up precaution s Bilateral lower limb edema 211868222 R60.0 Status of condition: Chronic. Testing/Re sults:none Discussion :ddx includes CHF, PVD, DVT Plan, Medication Management & Follow-up recommenda tions:Cont inue eval and work up with pcp [id number] FADI Clemens [facility] [address] [place] [address] 07/04/2022 11:34:05 07/06/2022 08:32:25 Acute bronchitis 71499330 J20.9 Essential hypertension 72985967 I10 [id number] Hollie Jiang NP [facility] [address] [place] [address] 10/06/2022 11:52:31 10/08/2022 18:44:12 Wound cellulitis [id number] L03.90 Status of condition: Exacerbati on/Acute on chronic. Testing/Re sults: Discussion :Low likelihood of infection [...] Hall Member ID Guarantor Name 01/03/2022 1 [facility] (MEDICARE REPLACEMENT/A DVANTAGE - PPO) [id number] [facility] Gatesman [id number] [facility] 10/09/2022 1 [facility] (MEDICARE REPLACEMENT/A DVANTAGE - PPO) [id number] [facility] [id number] [facility] 08/20/2020 1 *SELF PAY* Mayra Rodriguez [id number] [facility] 10/09/2021 1 [facility] (MEDICARE REPLACEMENT/A DVANTAGE - HMO) [id number] Mayra Rodriguez [id number] [facility] 12/17/2022 2 [facility] [address] Mayra Gatesman [id number] [facility] 01/03/2022 1 [facility] (MEDICARE REPLACEMENT/A DVANTAGE - HMO) [id number] Mayra Rodriguez [id number] [facility] 10/09/2021 1 [facility] (MEDICARE REPLACEMENT/A DVANTAGE - HMO) [id number] Mayra Rodriguez [id number] Mayrajunaid Rodriguez 10/09/2021 1 [facility] (MEDICARE REPLACEMENT/A DVANTAGE - HMO) [id number] Mayra Rodriguez [id number] Mayra Rodriguez Notes Date Note Type Note Provider Name [...] today.Of note does reports she went to ther ER last night to get this looked at and she left after the wait was going to be 10+ hours, this was [facility]. FADI Young [address], [place], [address], [place] [facility] 10/04/2021 11:19:03 01/03/2022 text/html [...] well. ASIF LOVELL NP [address], [place], [address], [place] [facility] 01/03/2022 13:03:27 05/07/2022 text/html [...] showed RBBB. FADI NASCIMENTO [address], [place], [address], [place] [facility] 05/07/2022 10:38:42 07/04/2022 text/html [...] been helping. FADI Clemens [address], [place], [address], [place] [facility] 07/04/2022 12:45:03 10/06/2022 text/html [...] erythema or edema. Hollie Jiang NP [address], [place], [address], [place] [facility] 10/06/2022 12:38:29 OBGyn Episode No OBEpisode recorded.
== END 2024-10-10 10:28 | disposition home or self-care (01) ==
LOC: HO.HCS 09:22
PROVIDERS: PCP Internal Medicine; Visit Provider Nurse Practitioner Family
DX: I48.91 Unspecified atrial fibrillation (principal); I10 Essential (primary) hypertension; G47.33 Obstructive sleep apnea (adult) (pediatric); R78.81 Bacteremia; B95.61 Methicillin susceptible Staphylococcus aureus infection as the cause of diseases classified elsewhere; Z09 Encounter for follow-up examination after completed treatment for conditions other than malignant neoplasm
CPT/HCPCS: 99214; G2211

== ENCOUNTER → 2024-10-10 09:21 | Outpatient (BNVA) | payer MEDICARE, MEDICAID, SELFPAY | PROVIDERS: PCP Internal Medicine; Visit Provider Nurse Practitioner Family | DX: I12.9 Hypertensive chronic kidney disease with stage 1 through stage 4 chronic kidney disease, or unspecified chronic kidney disease (principal); I48.91 Unspecified atrial fibrillation; E66.01 Morbid (severe) obesity due to excess calories; N18.9 Chronic kidney disease, unspecified; G47.33 Obstructive sleep apnea (adult) (pediatric); R78.81 Bacteremia; B95.61 Methicillin susceptible Staphylococcus aureus infection as the cause of diseases classified elsewhere; Z09 Encounter for follow-up examination after completed treatment for conditions other than malignant neoplasm; Z87.891 Personal history of nicotine dependence; Z98.84 Bariatric surgery status; Z68.34 Body mass index [BMI] 34.0-34.9, adult | CPT/HCPCS: 99212 ==

== ENCOUNTER 2024-10-11 11:45 | Outpatient (REF) | payer MEDICARE, MEDICAID, SELFPAY ==
[2024-10-11 16:24] LABS: MANUAL DIFF FLAG NO
[2024-10-11 16:34] LABS: Anion Gap 14 (12-20); Blood Urea Nitrogen 20 mg/dL (9-16); Calcium 8.7 mg/dL (8.4-10.2); Carbon Dioxide 25 mmol/L (22-29); Chloride 110 mmol/L (96-108); Estimated Glomerular Filt Rate 41; Glucose Random 62 mg/dL (60-115); Potassium 4.8 mmol/L (3.3-5.1); Sodium 144 mmol/L (135-145)
[2024-10-11 16:39] LABS: Basophils Absolute Auto 0.1 X10*3/uL (0.0-0.2); Basophils Percent Auto 0.9 % (0-2); Eosinophils Absolute Auto 0.2 X10*3/uL (0.0-0.4); Eosinophils Percent Auto 2.7 % (0-4); Hematocrit 28.3 % (37.0-47.0); Hemoglobin 8.6 g/dl (12.0-16.0); Imm Gran Abs Auto 0.03 X10*3/uL (0.00-0.03); Imm Gran Pct Auto 0.5 % (0.0-0.4); Lymphocytes Absolute Auto 2.2 X10*3/uL (1.2-4.9); Lymphocytes Percent Auto 33.3 % (20-40); Mean Corpuscular HGB Conc 30.4 g/dl (31.0-35.0); Mean Corpuscular Hemoglobin 30.8 pg (27.0-33.0); Mean Corpuscular Volume 101.4 fL (80.0-98.0); Mean Platelet Volume 9.5 fL (9.4-12.3); Monocytes Absolute Auto 0.4 X10*3/uL (0.1-1.2); Monocytes Percent Auto 6.4 % (2-11); Neutrophils Absolute Auto 3.7 x10*3/uL (2.0-8.3); Neutrophils Percent Auto 56.2 % (45-73); Platelet Count 312 X10*3/uL (160-400); Red Blood Count 2.79 X10*6/uL (4.20-5.50); Red Cell Distribution Width 14.4 % (11.0-16.0); White Blood Count 6.6 X10*3/uL (4.8-10.8)
== END 2024-10-11 11:46 | disposition home or self-care (01) ==
LOC: HO.HVNA 11:45
PROVIDERS: PCP Internal Medicine; Visit Provider Internal Medicine
DX: T81.31XD Disruption of external operation (surgical) wound, not elsewhere classified, subsequent encounter (principal)
CPT/HCPCS: 36415; 80048; 85025

== ENCOUNTER 2024-10-17 09:01 | Outpatient (REF) | payer MEDICARE, MEDICAID, SELFPAY ==
[2024-10-17 13:10] LABS: MANUAL DIFF FLAG NO
[2024-10-17 13:14] LABS: Basophils Absolute Auto 0.1 X10*3/uL (0.0-0.2); Eosinophils Absolute Auto 0.3 X10*3/uL (0.0-0.4); Eosinophils Percent Auto 4.9 % (0-4); Hemoglobin 9.3 g/dl (12.0-16.0); Imm Gran Abs Auto 0.02 X10*3/uL (0.00-0.03); Imm Gran Pct Auto 0.3 % (0.0-0.4); Lymphocytes Absolute Auto 2.1 X10*3/uL (1.2-4.9); Lymphocytes Percent Auto 35.8 % (20-40); Mean Platelet Volume 9.4 fL (9.4-12.3); Monocytes Absolute Auto 0.4 X10*3/uL (0.1-1.2); Monocytes Percent Auto 6.8 % (2-11); Neutrophils Absolute Auto 2.9 x10*3/uL (2.0-8.3); Neutrophils Percent Auto 51.2 % (45-73); Platelet Count 295 X10*3/uL (160-400); Red Cell Distribution Width 14.5 % (11.0-16.0); White Blood Count 5.8 X10*3/uL (4.8-10.8)
[2024-10-17 13:25] LABS: Anion Gap 10 (12-20); Blood Urea Nitrogen 14 mg/dL (9-16); Calcium 6.8 mg/dL (8.4-10.2); Carbon Dioxide 21 mmol/L (22-29); Chloride 118 mmol/L (96-108); Estimated Glomerular Filt Rate > 60; Glucose Random 77 mg/dL (60-115); Potassium 3.5 mmol/L (3.3-5.1); Sodium 145 mmol/L (135-145)
== END 2024-10-17 09:02 | disposition home or self-care (01) ==
LOC: HO.HVNA 09:01
PROVIDERS: PCP Internal Medicine; Visit Provider Internal Medicine
DX: T81.31XD Disruption of external operation (surgical) wound, not elsewhere classified, subsequent encounter (principal)
CPT/HCPCS: 36415; 80048; 85025

== ENCOUNTER 2024-10-20 11:09 | Outpatient (AMB) | payer MEDICARE, MEDICAID, SELFPAY ==
--- NOTE | 2024-10-20 11:11 | MHC.PC.OV ---
Vital Signs 10/20/24 11:17 Height 4 ft 10 in Weight 164 lb 2 oz BMI 34.3 BP 112/76 Respiration 14 Pulse 89 Pulse Source Pulse Oximeter Temp 97.7 F Temp Source Oral Pulse Oximetry (%) 95 Oxygen Delivery Method Room Air Intake Visit Reasons: TCM Allergies sucralfate [Carafate] Allergy (Intermediate, Verified 10/20/24 11:15) hives NSAIDS (Non-Steroidal Anti-Inflamma Adverse Reaction (Intermediate, Verified 10/20/24 11:15) cannot take due to gastric bypass history Medication List - Last Reconciled 10/20/24 by Kayla Smith MD acetaminophen 650 mg PO Q6H PRN alendronate (Fosamax) 70 mg PO [place] apixaban (Eliquis) 5 mg PO BID aripiprazole 10 mg PO DAILY ascorbic acid (vitamin C) 1,000 mg PO DAILY cefazolin in 0.9% sod chloride 2 gram/100 mL mL IV cholecalciferol (vitamin D3) 50 mcg PO DAILY escitalopram oxalate (Lexapro) 20 mg PO DAILY ferrous sulfate (Feosol) 325 mg PO BEDTIME lorazepam 0.25 mg PO DAILY PRN metoprolol tartrate 25 mg See Protocol PO Q12H Motegrity (prucalopride) 2 mg PO DAILY NS omeprazole 40 mg PO DAILY@0630 primidone 50 mg PO BEDTIME ropinirole 0.25 mg PO DAILY Tobacco use date assessed: 10/20/24 Fall risk assessment: 2 + Falls in past year Last assessed Fall Risk: 10/20/24 Dental Screening Dental Screen Date: 10/20/24 Did you have a dental visit in the last 12 months?: No Did you have a dental problem in the last 6 months where you did not have access to dental care?: No Was dental information given to patient?: No HPI TCM HPI Details Patient is 78-year-old female came in today for hospital discharge follow-up Patient was in [facility] Date of admission September 28, 2024 date of discharge October 06, 2024 Patient has a history of chronic right hip wound, chronic kidney disease stage 3, hypertension, atrial fibrillation currently on Eliquis, obstructive sleep apnea, COPD She was admitted in hospital for 10 days in August as well due to septic shock in the setting of right chronic hip wound infection At that time she had developed atrial fibrillation and needed ICU admission She presented to emergency room again on 28 of September with a chief complaint of malaise fever chills and right lower extremity redness Patient was found to be tachycardic with 130s 1 beats per minute and febrile with 103.8 fever H&H 9.6 and 29.4 Platelets 201 Electrolytes stable BUN 29 creatinine 2.31 Lactic acid 2.1 and CRP 21.26 EKG showed atrial fibrillation with rapid response no ST elevation or depression She was treated with vancomycin and Zosyn and IV fluids In-hospital patient deteriorated with hypotensive and requiring vasopressor support patient admitted to ICU again with a diagnosis of septic shock and right lower extremity cellulitis Her wound grew MSSA and strep pyogenes is ID recommended 6 weeks of IV Ancef which will be ending 11/11/2024 Patient declined to go to short term rehab Her daughter comfortable administering antibiotics so she was discharged home with PICC line placed On discharge her Eliquis was held Hydrochlorothiazide held Bupropion held and Abilify held Patient was to continue metoprolol Primidone Fosamax Acetaminophen Omeprazole Lexapro Iron supplement Lorazepam Vitamin-D vitamin-C Motegrity 2 mg She had labs done of this month Which showed hemoglobin of 9.3 hematocrit 30.0 platelet count 295 Metabolic profile showed stable electrolytes and kidney function creatinine 0.78 GFR more than 60 - The infection has been improving, and the wound size has decreased to approximately 2 cm. - The patient has a follow-up appointment with an infectious disease specialist scheduled for November 20. - Concerns about future infection management and potential emergency department visits were discussed. Eliquis has been we initiated by Cardiology Medical History: - MSSA infection with wound management - Depression - Previous staph and strep infection - Use of PICC line for antibiotic administration - History of treatment for constipation - Previous infection-related hospitalization - atrial fibrillation on Eliquis Medications: - Continuation of antibiotic therapy for bacterial infection, to be concluded by November 11. - Eliquis for cardiac indications. - Lexapro (Escitalopram) for depression. - Lorazepam as needed for anxiety. - Motegri and Dulcolax for constipation management. - Hydrochlorothiazide and Abilify currently on hold, previously used but not recently restarted. - Omeprazole for gastric protection. Social History: - The patient utilizes a recliner for sleep and is obtaining an electric recliner with assistance from [employer]. - No regular physical therapy, but home health nurse visits every other day for dressing changes. - Receives assistance with antibiotic administration and medication management. Problem List - Methicillin-Sensitive Staphylococcus Aureus (MSSA) infection - Depression - Constipation - Staphylococcal and Streptococcal infection - Anxiety - atrial fibrillation - on anticoagulation - PICC line Patient Instructions - Continue current antibiotic regimen until November 11 as directed. - Monitor hip wound for signs of infection, such as increasing redness or pain. - Contact healthcare provider if symptoms of infection reoccur. - Maintain appointments with the infectious disease specialist and other healthcare providers. - Follow instructions for medications as prescribed, and report any adverse reactions. Review of Systems - General: No fever no chills - Neurological: No headaches no dizziness - Ear nose throat: No sore throat no hearing difficulty no ear pain - Cardiovascular: No syncope, no chest pain, no palpitations - Gastrointestinal: No nausea vomiting or diarrhea - Endocrine: No polyuria polydipsia no heat intolerance - Genitourinary: No dysuria , no blood in urine Physical Exam General: No acute distress HEENT: No acute findings Neck: Supple Respiratory system: Able to talk in full sentences, no audible wheeze Cardiovascular: S1-S2 regular in rate and rhythm Gastrointestinal: No pain Extremities: Right hip dressing on, PICC line on right forearm SPINDLE FRAME CARVER: Alert awake oriented x3 motor sensory intact Skin: Normal turgor [facility] [place] TCM Information Date of Discharge 10/06/24 Discharged From [facility] Interactive Contact Date (Reference documentation from this date) 10/09/24 HPI Comments History of Present Illness Details Date of admission/discharge: 09/28/24 - 10/06/24 Facility:at [facility] Discharge 2/current location: Home Diagnosis/procedure: Sepsis New/DC medications: Ancef IV thru Picc line right arm Changed medication/dozing: Eliqus restarted after visit with cardio Pending labs/tests: none Call to patient: Date/time 10/09/2024 at 13:05 Outcome spoke to patient TCM visit TCM discharge loca tion/reason [facility] TCM discharge date 10/06/24 TCM Interactive Co ntact Date 10/09/24 TCM medications re conciled Yes TCM discharge foll ow-up appointment scheduled No Patient received d ischarge instructi ons Yes All patient questi ons answered Yes Teach back Yes TCM details Pt. doing well, me ds reconciled, dis charge documents n oted, no fevers, m essage left for tc m apt. How are you feeling? much better Any pain or discomfort? no Do you have any questions about your condition or discharge instructions?no Were you able to get her medications filled? yes Do you have any questions about your medications? no Were you able to schedule your follow-up appointments? yes , has apt with infectious disease November 20 If home health was ordered, have they contacted you? yes Any outpatient services, if so, are you scheduled? none Are there any additional resources like transportation you might need during your recovery? not at this time elder care helping getting recliner Educational needs/resources: provided What support system do you have? daughter PFSH Medical History Atrial fibrillation CKD stage 3a, GFR 45-59 ml/min Osteoporosis Hospital discharge follow-up Acute kidney injury superimposed on CKD Thoracolumbar back pain Decreased GFR ANIYA (acute kidney injury) Self-care deficit in patient living alone Chronic wound Seroma of musculoskeletal structure after musculoskeletal system procedure New onset a-fib History of septic shock Unspecified open wound, right hip, initial encounter Sleep disorder Abnormal skin growth Tubular adenoma of colon Ex-smoker Mitral annular calcification Aortic valve calcification Stasis edema of both lower extremities Family history of colon cancer Nail fungus Nocturnal hypoxemia Right bundle branch block Premature atrial contractions Hip pain, right Soft tissue infection Sepsis Septic shock Acute hypotension Oropharyngeal dysphagia Post-COVID chronic dyspnea Chronic GERD Peripheral vascular disease SOULEYMANE (obstructive sleep apnea) Wound, open, hip or thigh with complication Encounter for general adult medical examination with abnormal findings Preoperative cardiovascular examination Change in bowel movement Traumatic seroma of right thigh Postprocedural seroma of skin and subcutaneous tissue following other procedure Open wound of right hip and thigh Right rib fracture Menopause Pain management Pain management contract agreement Open wound of right lower leg with complication Shortness of breath Cough Edema Influenza A H1N1 infection Cellulitis of right leg Varicose veins of right lower extremity with inflammation Enterococcus faecalis infection Abscess Hip pain, right Obesity Lymphedema Morbid obesity due to excess calories Pre-op evaluation Colon cancer screening Medicare annual wellness visit, subsequent Family history of anesthesia complication Back pain Arthritis Renal calculi Post-influenza syndrome Tremor Peripheral vascular disease Right bundle branch block (RBBB) Aortic valve calcification Mitral annular calcification COPD (chronic obstructive pulmonary disease) Restrictive lung disease Depression, major, recurrent Hypertension, essential Surgical History S/P total right hip arthroplasty History of excision of lesion (10/20/23) History of total hip arthroplasty S/P gastric bypass History of surgery on lower extremity (01/25/23) History of surgery H/O colonoscopy History of cataract extraction History of bilateral tubal ligation History of tonsillectomy Family History Father No problems noted. Mother Alzheimer's disease Maternal Grandmother Cancer Maternal Grandfather No problems noted. Paternal Grandfather No problems noted. Paternal Grandmother No problems noted. Maternal Aunt Cancer Sister Colon cancer Son No problems noted. Daughter No problems noted. Social History Household Members: None Housing: Other Housing Other:: Mobile home Are you a primary reproductive healthcare assistant to a significant other at home: No Do you presently have visiting nurse or other home services: Yes (Wound Care) Alcohol intake: former Patient Tobacco Use Status: Former Tobacco user Tobacco use type: Cigarette Years Smoked: 40 e-Cigarette/Vaping Use: Former Use Second Hand Smoke Exposure: No Advance Directives Date on File: 03/13/15 service: No Current occupational status: retired and other Current occupation: right handed Cognitive needs: No Hearing needs: No Vision needs: No Female Reproductive History Menstrual Age of Menarche: 13 Questionnaire Thrive Questionnaire Date Thrive assessed: 08/29/24 I am a: Patient What is your living situation today?: I have a steady place to live Within the past 12 months, did the food you bought not last and you didn't have the money to get more?: Sometimes True Within the past 12 months, did you worry whether your food would run out before you got money to buy more?: Sometimes True Do you have trouble paying for medicines?: No Do you have trouble getting transportation to medical appointments?: No Do you have trouble paying your heating and electricity bill?: Yes Do you have trouble taking care of your child, family member or friend?: No Do you have trouble with day-to-day activities such as bathing, preparing meals, shopping, managing finances, etc.?: No Are you currently unemployed and looking for a job?: No Are you interested in more education?: No Please select the resources that you would like help with: None Currently or been in a relationship where the following occur: No concerns reported THRIVE Score: 3 GERMÁN-7 AMB Questionnaire GERMÁN-7 Date GERMÁN - 7 assessed: 09/08/24 Source: Developed by Drs. Francisco Mendoza, Edyta Moctezuma, Kam Mills and colleagues, with an educational desi from [employer]. Physical exam (Primary Care) Vital Signs: Last Vital Signs Temp 97.7 F 10/20/24 11:17 Pulse 89 10/20/24 11:17 Resp 14 10/20/24 11:17 BP 112/76 10/20/24 11:17 Pulse Ox 95 10/20/24 11:17 Oxygen Delivery Method Room Air 10/20/24 11:17 BMI result Body Mass Index 34.3 Tobacco/Smoking Status: Tobacco use Status Tobacco use date assessed 10/20/24 10/20/24 11:20 Patient Tobacco Use Status Former Tobacco user 10/20/24 11:14 Tobacco use type Cigarette 10/20/24 11:14 e-Cigarette/Vaping Use Former Use 10/20/24 11:20 Thrive Assessment: Date of Thrive Assessment Date Thrive assessed 08/29/24 10/20/24 11:14 Currently or been in a relationship where the following occur: No concerns reported Coding Level of Care Code TCM High MDM <= 14 days Diagnoses Hospital discharge follow-up Z09 MSSA bacteremia R78.81; B95.61 Open wound of right thigh, subsequent encounter S71.101D Encounter type: subsequent encounter SOULEYMANE (obstructive sleep apnea) G47.33 Use of cane as ambulatory aid Z99.89 Other emphysema J43.8 COPD type: emphysema Emphysema type: other Recurrent major depressive disorder, in partial remission F33.41 Active/Remission status: in partial remission Hypertension, essential I10 Paroxysmal atrial fibrillation I48.0 Atrial fibrillation type: paroxysmal Assessment & Plan Assessment & Plan (1) Hospital discharge follow-up: Code(s): Z09 - Encounter for follow-up examination after completed treatment for conditions other than malignant neoplasm Category: Medical (2) MSSA bacteremia: Code(s): R78.81 - Bacteremia; B95.61 - Methicillin susceptible Staphylococcus aureus infection as the cause of diseases classified elsewhere Category: Medical (3) Open wound of right thigh: Code(s): S71.101A - Unspecified open wound, right thigh, initial encounter Category: Medical Qualifiers: Encounter type: subsequent encounter Qualified Code(s): S71.101D - Unspecified open wound, right thigh, subsequent encounter (4) SOULEYMANE (obstructive sleep apnea): Comment: PATIENT HAS PAST HISTORY OF OBSTRUCTIVE SLEEP APNEA AND STOPPED USING THE CPAP ABOUT 6 YEARS AGO. Code(s): G47.33 - Obstructive sleep apnea (adult) (pediatric) Category: Medical (5) Use of cane as ambulatory aid: Code(s): Z99.89 - Dependence on other enabling machines and devices Category: Medical (6) COPD (chronic obstructive pulmonary disease): Comment: SHE DOES HAVE HISTORY OF SMOKING IN THE PAST HAS OCCASIONAL COUGH AND SHORTNESS OF BREATH ON WALKING FAST. HOWEVER DOES NOT HAVE ANY WHEEZING ATTACKS. CLINICALLY I DO NOT THINK SHE HAS ANY SIGNIFICANT DEGREE OF COPD Code(s): J44.9 - Chronic obstructive pulmonary disease, unspecified Category: Medical Qualifiers: COPD type: emphysema Emphysema type: other Qualified Code(s): J43.8 - Other emphysema (7) Depression, major, recurrent: Code(s): F33.9 - Major depressive disorder, recurrent, unspecified Category: Medical Qualifiers: Active/Remission status: in partial remission Qualified Code(s): F33.41 - Major depressive disorder, recurrent, in partial remission (8) Hypertension, essential: Code(s): I10 - Essential (primary) hypertension Category: Medical (9) Atrial fibrillation: Code(s): I48.91 - Unspecified atrial fibrillation Category: Medical Qualifiers: Atrial fibrillation type: paroxysmal Qualified Code(s): I48.0 - Paroxysmal atrial fibrillation Plan Patient is 78-year-old female came in today for hospital discharge follow-up Patient was in [facility] Date of admission September 28, 2024 date of discharge October 06, 2024 Patient has a history of chronic right hip wound, chronic kidney disease stage 3, hypertension, atrial fibrillation currently on Eliquis, obstructive sleep apnea, COPD She was admitted in hospital for 10 days in August as well due to septic shock in the setting of right chronic hip wound infection At that time she had developed atrial fibrillation and needed ICU admission She presented to emergency room again on 28 of September with a chief complaint of malaise fever chills and right lower extremity redness Patient was found to be tachycardic with 130s 1 beats per minute and febrile with 103.8 fever H&H 9.6 and 29.4 Platelets 201 Electrolytes stable BUN 29 creatinine 2.31 Lactic acid 2.1 and CRP 21.26 EKG showed atrial fibrillation with rapid response no ST elevation or depression She was treated with vancomycin and Zosyn and IV fluids In-hospital patient deteriorated with hypotensive and requiring vasopressor support patient admitted to ICU again with a diagnosis of septic shock and right lower extremity cellulitis Her wound grew MSSA and strep pyogenes is ID recommended 6 weeks of IV Ancef which will be ending 11/11/2024 Patient declined to go to short term rehab Her daughter comfortable administering antibiotics so she was discharged home with PICC line placed On discharge her Eliquis was held Hydrochlorothiazide held Bupropion held and Abilify held Patient was to continue metoprolol Primidone Fosamax Acetaminophen Omeprazole Lexapro Iron supplement Lorazepam Vitamin-D vitamin-C Motegrity 2 mg She had labs done of this month Which showed hemoglobin of 9.3 hematocrit 30.0 platelet count 295 Metabolic profile showed stable electrolytes and kidney function creatinine 0.78 GFR more than 60 - The infection has been improving, and the wound size has decreased to approximately 2 cm. - The patient has a follow-up appointment with an infectious disease specialist scheduled for November 20. - Concerns about future infection management and potential emergency department visits were discussed. Eliquis has been we initiated by Cardiology Medical History: - MSSA infection with wound management - Depression - Previous staph and strep infection - Use of PICC line for antibiotic administration - History of treatment for constipation - Previous infection-related hospitalization - atrial fibrillation on Eliquis Medications: - Continuation of antibiotic therapy for bacterial infection, to be concluded by November 11. - Eliquis for cardiac indications. - Lexapro (Escitalopram) for depression. - Lorazepam as needed for anxiety. - Motegri and Dulcolax for constipation management. - Hydrochlorothiazide and Abilify currently on hold, previously used but not recently restarted. - Omeprazole for gastric protection. Social History: - The patient utilizes a recliner for sleep and is obtaining an electric recliner with assistance from [employer]. - No regular physical therapy, but home health nurse visits every other day for dressing changes. - Receives assistance with antibiotic administration and medication management. Problem List - Methicillin-Sensitive Staphylococcus Aureus (MSSA) infection - Depression - Constipation - Staphylococcal and Streptococcal infection - Anxiety - atrial fibrillation - on anticoagulation - PICC line Patient Instructions - Continue current antibiotic regimen until November 11 as directed. - Monitor hip wound for signs of infection, such as increasing redness or pain. - Contact healthcare provider if symptoms of infection reoccur. - Maintain appointments with the infectious disease specialist and other healthcare providers. - Follow instructions for medications as prescribed, and report any adverse reactions.
[2024-10-20 11:17] VITALS: BP 112/76; PULSE 89; RESP 14; TEMP 36.5; O2SAT 95; BMI 34.3
--- OUTSIDE RECORDS SUMMARY | 2024-10-20 12:13 | XMS_ITS | Data Portability ---
Author Organization [place] - [facility] Address [address] [place] [id number] Care Team Providers Care Coconut Jelly Roller Name Role Phone STEPHANIE MARIE Primary Care Provider [facility] OTHER Assessment Encounter Date Assessment Date Assessment [...] going to be 10+ hours, this was [facility]. Exam: Vitals: VSS and afebrile Constitutional: 74 [...] scheduled Time On Scene with Patient: 00:42:25 [email or web address] Not available 05/07/2022 10:35:29 07/04/2022 07/04/2022 Brief [...] after care of [facility]. [email or web address] Not available 07/04/2022 12:44:13 10/06/2022 10/06/2022 Brief [...] to patient. All questions answered. wound care [phone] - wound care states that they have no apts sooner than but will place pt on cancellation list [email or web address] Not available 10/06/2022 12:38:07 Plan of Treatment Reminders Order Date Submit Date Provider Last Modified By Organization Details Last Modified Time Details Appointments None recorded. Lab rapid SARS CoV 2 Ag, QL IA, respiratory specimen 2022 023 [email or web address] 5 [facility], [address] [place] [address], [address], 12:38:31 Referral None recorded. Procedures None recorded. Surgeries None recorded. Imaging XR, pelvis, 3 or more view - rule out osteomyelit is. tunneling wound over prosthetic hip joint 2022 023 [facility] [address], [place], [address], 3 11:01:28 XR, chest, 2 view 2021 022 [facility] [address], [place], [address], 2 11:58:06 Medication Orders doxycycline hyclate 100 mg capsule 2022 023 [facility][id number], [address] [place], [address], 3 12:35:07 albuterol sulfate concentrate 2.5 mg/0.5 mL solution for nebulizatio n 2022 023 [email or web address] 5 [facility]/Pharmacy #[id number], [address] [place], [address], 3 12:38:23 ipratropium bromide 0.02 % solution for inhalation 2022 023 [email or web address] 5 [facility]/Pharmacy #0693, [address] [place], [address], 3 12:38:34 prednisone 20 mg tablet 2022 023 [email or web address] [facility], [address] [place], [address], 3 12:02:14 prednisone 10 mg tablet 2022 023 [email or web address] [facility]/Pharmacy #0693, [address] [place], [address], 3 12:02:10 amoxicillin 875 mg-potassiu m clavulanate 125 mg tablet 2021 022 [email or web address] 5 [facility]/Pharmacy #0693, [address] [place], [address], 3 11:35:26 azithromyci n 250 mg tablet 2021 022 [email or web address] 5 [facility]/Pharmacy #0693, [address] [facility] [place], [address], 3 11:35:33 albuterol sulfate concentrate 2.5 mg/0.5 mL solution for nebulizatio n [address]/Pharmacy #0693, [address] [facility] [place], [address], 2 10:12:45 ipratropium bromide 0.02 % solution for inhalation [address]/Pharmacy #0693, [address] [facility] [place], [address], 2 10:12:42 nystatin 100,000 unit/gram topical cream [address]/Pharmacy #0693, [address] [facility] [place], [address], 2 09:43:56 cephalexin 500 mg capsule 2021 022 [email or web address] 5 [facility]/Pharmacy #0693, [address] [facility] [place], [address], 3 11:35:49 cephalexin 500 mg capsule 2021 022 [email or web address] 5 [facility]/Pharmacy #0693, [address] [facility] [place], [address], 3 11:35:49 Patient TargetsNo targets recorded. Patient Instructions Encounter Date Encounter Id Patient Instructions Last Modified By Organization Details Last Modified Time 01/03/2022 [id number] candidiasis: car e instructions [email or web address] Not available [...] pain. [email or web address] Not available 01/03/2022 13:03:10 05/07/2022 [id number] start mucinex as directed to help thin mucous drink plenty of fluids continue humidifier/steam rest continue albuterol inhaler four times per day for cough/breathing can use peppermints for cough can use honey for cough *[facility] will call to schedule chest xray. Should be complete within the next 24hrs *[facility] will follow up on Wednesday for recheck Please get to the ER if you are feeling worse [email or web address] Not available 05/07/2022 10:16:40 10/06/2022 [id number] Thank you for yo ur visit with [facility] today. You were seen today for treatment [...] in your condition between 8am-10pm, please call [facility] at [phone] to help navigate your care. Not available 10/06/2022 12:03:22 Reason for Referral None Reported. Results Created Date Observation Date Name Description Value Unit Range Abnormal Flag Note LastModifiedBy Organization Detail LastModifiedTime 07/04/19 23 07/04/2022 rapid SARS CoV 2 Ag, QL IA, respi rator y speci men Covid-19 (ref: neg) negati ve Not Available [facility] [address], [place], [address], 07/04/2022 11:44:48 07/04/19 23 07/04/2022 rapid SARS CoV 2 Ag, QL IA, respi rator y speci men Control Visual ized/V alid Not Available [facility] [address], [place], [address], 07/04/2022 11:44:48 07/04/19 23 07/04/2022 rapid SARS CoV 2 Ag, QL IA, respi rator y speci men Location [facility], [facility], [address] [facility], [place] [address], [id number] Not Available [facility] [address] [facility], [place], [address], 07/04/2022 11:44:48 05/08/20 22 05/08/2022 XR, chest [...] Leone M.D. 2021 11:53: 41 AM EST. [email or web address] [employer] [place] [address] [facility] [address], [place], [address], 08/06/2022 12:49:04 10/08/19 23 10/07/2022 XR, pelvi [...] NGUYEN M.D. 023 10:47: 33 AM EDT. [email or web address] [facility] [address] [address], [place], [address], 10/07/2022 18:32:41 10/08/1910/07/2022 hip uni W or [...] NGUYEN M.D. 023 10:47: 33 AM EDT. [email or web address] [facility] [address] [place] [address] 4, [place], [address], 10/07/2022 18:32:16 Result Notes Documentation Provider Name and Address Organization Details Recorded Time Xr, Chest, 2 View : XRAY CHEST 2 VIEW FINDINGS: There is mild cardiomegaly. The mediastinal structures are within normal limits in size. The lungs demonstrate no consolidation, masses or effusions. There is no evidence of significant pneumothorax in this portable exam. Osseous structures are show no acute abnormality. No foreign body. CONCLUSION: Mild cardiomegaly. No focal airspace disease. ELECTRONICALLY SIGNED BY LACHELLE GALVEZ M.D. 05/08/2022 11:53:41 AM EST. XRAY CHEST 2 VIEW Results: There is mild cardiomegaly. The mediastinal structures are within normal limits in size. The lungs demonstrate no consolidation, masses or effusions. There is no evidence of significant pneumothorax in this portable exam. Osseous structures are show no acute abnormality. No foreign body. Conclusion: Mild cardiomegaly. No focal airspace disease. Electronically signed by LACHELLE GALVEZ M.D. 05/08/2022 11:53:41 AM EST. FADI NASCIMENTO [address], [place], [address], [place] [facility] 08/06/2022 12:49:04 Xr, Pelvis, 3 Or More View : PELVIS COMPLETE, MIN 3V FINDINGS: The study is technically difficult due to patient's body habitus, with significant soft tissue attenuation. Bony ossification pattern is normal. Bilateral sacroiliac joints and hip joints show modest degenerative changes. Iliac wings and pubic rami are intact. No definite pelvic or hip fracture seen. CONCLUSION: Modest osteoarthritis, but no definite pelvic or hip fracture. ELECTRONICALLY SIGNED BY BROOKLYNN NGUYEN M.D. 10/07/2022 10:47:33 AM EDT. 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 FADI Young [address], [place], [address], [place] [facility] 10/04/2021 10:27:45 Gastric bypass for obesity completed FADI Young [address], [place], [address], [place] [facility] 10/04/2021 10:28:00 bilateral extraction of cataracts completed FADI Young [address], [place], [address], [place] [facility] 10/04/2021 10:28:07 biopsy of breast completed FADI Young [address], [place], [address], [place] [facility] 10/04/2021 10:28:14 tonsilectomy/a denoids completed FADI Young [address], [place], [address], [place] [facility] 10/04/2021 10:29:26 Imaging Results None recorded. Procedure Notes None recorded. Medical Equipment None Reported. Allergies Allergen ID Allergen Name Allergen Category Reaction Reaction Severity Criticality Documentation Date Start Date Code Code System Note Provider Name and Address Organization Details Recorded Time 830673 Non-stero idal anti-infl ammatory agent (product) medicatio n Not available Not available Not available 10/04/2021 20636 005 SNOMED FADI Santiago [address] [place], [address], [place] [facility] 2 10:52:20 704147 sucralfat e medicatio n Not available Not available Not available 10/06/2022 70870 RxNorm Hollie Jiang NP [address] [place], [address], [place] [facility] 3 12:01:45 Medications [...] 128 mm[Hg] 78 mm[Hg] Not Available [facility] 3 11:37:17 Date Recorded Respiratory rate Body temperature Oxygen saturation Oxygen saturation in Arterial blood by Pulse oximetry Heart rate Systolic blood pressure Diastolic blood pressure Provider Name and Address Organization Details Last Updated DateTime 2 18 /min 98.4 [degF] 95 % 95 % 60 /min 108 mm[Hg] 62 mm[Hg] Not Available [facility] 2 10:29:44 Date Recorded Oxygen saturation Oxygen saturation in Arterial blood by Pulse oximetry Body temperature Respiratory rate Heart rate Systolic blood pressure Diastolic blood pressure Provider Name and Address Organization Details Last Updated DateTime 3 97 % 97 % 98.2 [degF] 18 /min 65 /min 124 mm[Hg] 68 mm[Hg] Not Available [facility] 3 12:06:44 Date Recorded Body temperature Oxygen saturation Oxygen saturation in Arterial blood by Pulse oximetry Respiratory rate Heart rate Systolic blood pressure Diastolic blood pressure Provider Name and Address Organization Details Last Updated DateTime 2 98.3 [degF] 98 % 98 % 16 /min 82 /min 126 mm[Hg] 74 mm[Hg] Not Available [facility] 2 12:32:06 Date Recorded Respiratory rate Provider Name a ky Address Organization Details Last Updated DateTime 05/07/2022 20 /min FADI NASCIMENTO [address], [place], [address], [place] [facility] 05/07/2022 10:29:35 Date Recorded [...] % 110 mm[Hg] 72 mm[Hg] Not Available [facility] 2 09:48:07 Social History Question Answer Notes LastModified by Organizat ion Details LastModified Time Tobacco Smoking Status Former Smoker FADI Young [address], [place], [address], [place] [facility] 10/04/2021 10:29:06 Do You Have An Advance Directive? Yes [email or web address] Information not available 10/06/2022 What Is Your Code Status? Full Code [email or web address] Information not available 10/06/2022 Within The Past 12 Months, Has It Happened That The Food You Bought Just Didn't Last And You Didn't Have Money To Get More. Never True [email or web address] Information not available 10/06/2022 Within The Past 12 Months, Have You Worried That Your Food Would Run Out Before You Got Money To Buy More. Never True [email or web address] Information not available 10/06/2022 Fall Risk: Do You Feel Unsteady When Standing Or Walking? No [email or web address] Information not available 10/06/2022 Excessive Alcohol Or Drug Use No [email or web address] Information not available 10/06/2022 Does This Patient Have A PCP? Yes [email or web address] Information not available 10/06/2022 ADL: Do You Need Help With Daily Activities Such As Bathing, Preparing Meals, Dressing, Or Cleaning? No [email or web address] Information not available 10/06/2022 What Is Your Current Pack Years? 10-19packye ars [email or web address] Information not available 10/06/2022 Sex: Unknown Functional [...] N Cancer N Stroke N Dementia N Asthma N Hypothyroidism N Depression Y COPD N High Cholesterol N Rheumatoid Arthritis N Pulmonary Embolism N Hypertension Y A-fib N Osteoporosis N Kidney Disease N Gynecological HistoryNo gynecological history recorded. Obstetrics History GPAL:G 0 P 0 0 0 0 Past Encounters Encounter ID Performer Location Encounter Start Date Encounter Closed Date Diagnosis/Indication Diagnosis SNOMED-CT Code Diagnosis ICD10 Code Diagnosis Note [id number] FADI Arevalo [facility] [address] [facility] [address] 10/04/2021 09:57:17 10/09/2021 09:37:20 Wound cellulitis 278898180 L03.90 [id number] ASIF LOVELL NP [facility] [address] [place] [address] 01/03/2022 12:26:14 01/05/2022 09:24:30 Candidal intertrigo 630021702 B37.2 [id number] FADI NASCIMENTO [facility] [address] [place] [address] 05/07/2022 09:43:13 05/10/2022 20:18:20 Community acquired pneumonia [id number] J18.9 Status of condition: Acute. Testing/Re sults:CXR [...] up precaution s Bilateral lower limb edema 224514660 R60.0 Status of condition: Chronic. Testing/Re sults:none Discussion :ddx includes CHF, PVD, DVT Plan, Medication Management & Follow-up recommenda tions:Cont inue eval and work up with pcp [id number] FADI Clemens [facility] [address] [facility] [address] 07/04/2022 11:34:05 07/06/2022 08:32:25 Acute bronchitis 23892242 J20.9 Essential hypertension 14952369 I10 [id number] Hollie Jiang NP [facility] [address] [facility] [address] 10/06/2022 11:52:31 10/08/2022 18:44:12 Wound cellulitis 597791670 L03.90 Status of condition: Exacerbati on/Acute on chronic. Testing/Re sults: Discussion :Low likelihood of infection progressin g to bone but possible. Will obtain XR to rule out. Pt instructed to call ortho doc that completed debridemen t last year today for immediate apt. Pt has significan t tunneling of wound and needs wound care sooner than Michelle 9th, 2023. Attempted myself to call wound care for [...] Hall Member ID Guarantor Name 01/03/2022 1 [facility] (MEDICARE REPLACEMENT/A DVANTAGE - PPO) [id number] [facility] [id number] [facility] 10/09/2022 1 [facility] (MEDICARE REPLACEMENT/A DVANTAGE - PPO) [id number] [place] [address] [id number] [facility] 08/20/2020 1 *SELF PAY* Mayra Rodriguez [id number] [facility] 10/09/2021 1 [facility] (MEDICARE REPLACEMENT/A DVANTAGE - HMO) [id number] [facility] [id number] [facility] 12/17/2022 2 [place]: [facility] Mary GatesRodriguez [id number] [facility] 01/03/2022 1 [facility] (MEDICARE REPLACEMENT/A DVANTAGE - HMO) [id number] [facility] [id number] [facility] 10/09/2021 1 [facility] (MEDICARE REPLACEMENT/A DVANTAGE - HMO) [address] [place] [address] [id number] [facility] 10/09/2021 1 [facility] (MEDICARE REPLACEMENT/A DVANTAGE - HMO) [facility] [id number] [facility] Notes Date Note Type Note [...] today.Of note does reports she went to [facility] ER last night to get this looked at and she left after the wait was going to be 10+ hours, this was [facility]. FADI Young [address], [place], [address], [place] [facility] 10/04/2021 11:19:03 01/03/2022 text/html [...] well. ASIF LOVELL NP [address], [place], [address], [place] [facility] 01/03/2022 13:03:27 05/07/2022 text/html [...] showed RBBB. FADI NASCIMENTO [address], [place], [address], [place] [facility] 05/07/2022 10:38:42 07/04/2022 text/html [...] been helping. FADI Clemens [address], [place], [address], [place] [facility] 07/04/2022 12:45:03 10/06/2022 text/html [...] edema. Hollie Jiang NP [address], [place], [address], [place] [facility] 10/06/2022 12:38:29 OBGyn Episode No OBEpisode recorded.
== END 2024-10-20 11:47 | disposition home or self-care (01) ==
LOC: HO.HMCC 11:10
PROVIDERS: PCP Internal Medicine; Visit Provider Internal Medicine
DX: J43.8 Other emphysema (principal); I48.0 Paroxysmal atrial fibrillation; Z09 Encounter for follow-up examination after completed treatment for conditions other than malignant neoplasm; R78.81 Bacteremia; B95.61 Methicillin susceptible Staphylococcus aureus infection as the cause of diseases classified elsewhere; S71.101D Unspecified open wound, right thigh, subsequent encounter; G47.33 Obstructive sleep apnea (adult) (pediatric); Z99.89 Dependence on other enabling machines and devices; F33.41 Major depressive disorder, recurrent, in partial remission; I10 Essential (primary) hypertension

== ENCOUNTER → 2024-10-20 11:09 | Outpatient (BNVA) | payer MEDICARE, MEDICAID, SELFPAY | PROVIDERS: PCP Internal Medicine; Visit Provider Internal Medicine | DX: Z09 Encounter for follow-up examination after completed treatment for conditions other than malignant neoplasm (principal); R78.81 Bacteremia; B95.61 Methicillin susceptible Staphylococcus aureus infection as the cause of diseases classified elsewhere; S71.101D Unspecified open wound, right thigh, subsequent encounter; G47.33 Obstructive sleep apnea (adult) (pediatric); Z99.89 Dependence on other enabling machines and devices; J43.8 Other emphysema; F33.41 Major depressive disorder, recurrent, in partial remission; I10 Essential (primary) hypertension; I48.0 Paroxysmal atrial fibrillation | CPT/HCPCS: 99495 ==

== ENCOUNTER → 2024-10-24 13:18 | Outpatient (BNVA) | payer MEDICARE, MEDICAID, SELFPAY | PROVIDERS: PCP Internal Medicine; Visit Provider Nurse Practitioner Family | DX: Z01.30 Encounter for examination of blood pressure without abnormal findings (principal); I48.0 Paroxysmal atrial fibrillation; I45.10 Unspecified right bundle-branch block; R94.31 Abnormal electrocardiogram [ECG] [EKG] | CPT/HCPCS: 93005 ==

== ENCOUNTER 2024-10-25 09:30 | Outpatient (REF) | payer MEDICARE, MEDICAID, SELFPAY ==
[2024-10-25 13:19] LABS: MANUAL DIFF FLAG NO
[2024-10-25 13:29] LABS: Basophils Absolute Auto 0.1 X10*3/uL (0.0-0.2); Basophils Percent Auto 1.1 % (0-2); Eosinophils Absolute Auto 0.2 X10*3/uL (0.0-0.4); Eosinophils Percent Auto 4.5 % (0-4); Hematocrit 32.7 % (37.0-47.0); Hemoglobin 9.7 g/dl (12.0-16.0); Imm Gran Abs Auto 0.02 X10*3/uL (0.00-0.03); Imm Gran Pct Auto 0.4 % (0.0-0.4); Lymphocytes Absolute Auto 1.8 X10*3/uL (1.2-4.9); Lymphocytes Percent Auto 33.3 % (20-40); Mean Corpuscular HGB Conc 29.7 g/dl (31.0-35.0); Mean Corpuscular Hemoglobin 30.1 pg (27.0-33.0); Mean Corpuscular Volume 101.6 fL (80.0-98.0); Mean Platelet Volume 9.9 fL (9.4-12.3); Monocytes Absolute Auto 0.4 X10*3/uL (0.1-1.2); Monocytes Percent Auto 7.5 % (2-11); Neutrophils Absolute Auto 2.8 x10*3/uL (2.0-8.3); Neutrophils Percent Auto 53.2 % (45-73); Platelet Count 223 X10*3/uL (160-400); Red Blood Count 3.22 X10*6/uL (4.20-5.50); Red Cell Distribution Width 14.1 % (11.0-16.0); White Blood Count 5.3 X10*3/uL (4.8-10.8)
[2024-10-25 13:34] LABS: Anion Gap 8 (12-20); Blood Urea Nitrogen 10 mg/dL (9-16); Calcium 6.2 mg/dL (8.4-10.2); Carbon Dioxide 19 mmol/L (22-29); Chloride 119 mmol/L (96-108); Estimated Glomerular Filt Rate > 60; Glucose Random 67 mg/dL (60-115); Potassium 3.3 mmol/L (3.3-5.1); Sodium 143 mmol/L (135-145)
== END 2024-10-25 09:31 | disposition home or self-care (01) ==
LOC: HO.HVNA 09:30
PROVIDERS: PCP Internal Medicine; Visit Provider Internal Medicine
DX: T81.31XA Disruption of external operation (surgical) wound, not elsewhere classified, initial encounter (principal)
CPT/HCPCS: 36415; 80048; 85025

== ENCOUNTER 2024-10-31 12:00 | Outpatient (REF) | payer MEDICARE, MEDICAID, SELFPAY ==
[2024-10-31 16:38] LABS: MANUAL DIFF FLAG NO
[2024-10-31 16:41] LABS: Basophils Percent Auto 0.7 % (0-2); Eosinophils Absolute Auto 0.2 X10*3/uL (0.0-0.4); Eosinophils Percent Auto 4.1 % (0-4); Hematocrit 31.5 % (37.0-47.0); Imm Gran Abs Auto 0.01 X10*3/uL (0.00-0.03); Imm Gran Pct Auto 0.2 % (0.0-0.4); Lymphocytes Absolute Auto 1.9 X10*3/uL (1.2-4.9); Lymphocytes Percent Auto 33.6 % (20-40); Mean Corpuscular HGB Conc 31.7 g/dl (31.0-35.0); Mean Corpuscular Hemoglobin 31.3 pg (27.0-33.0); Mean Corpuscular Volume 98.7 fL (80.0-98.0); Mean Platelet Volume 9.6 fL (9.4-12.3); Monocytes Absolute Auto 0.4 X10*3/uL (0.1-1.2); Monocytes Percent Auto 7.8 % (2-11); Neutrophils Percent Auto 53.6 % (45-73); Platelet Count 225 X10*3/uL (160-400); Red Blood Count 3.19 X10*6/uL (4.20-5.50); Red Cell Distribution Width 13.9 % (11.0-16.0); White Blood Count 5.6 X10*3/uL (4.8-10.8)
== END 2024-10-31 12:01 | disposition home or self-care (01) ==
LOC: HO.HVNA 12:00
PROVIDERS: PCP Internal Medicine; Visit Provider Internal Medicine
DX: T81.31XD Disruption of external operation (surgical) wound, not elsewhere classified, subsequent encounter (principal)
CPT/HCPCS: 36415; 85025

== ENCOUNTER 2024-11-02 12:27 | Outpatient (REF) | payer MEDICARE, MEDICAID, SELFPAY ==
[2024-11-02 12:29] LABS: MANUAL DIFF FLAG NO
[2024-11-02 12:33] LABS: Basophils Percent Auto 0.8 % (0-2); Eosinophils Absolute Auto 0.2 X10*3/uL (0.0-0.4); Eosinophils Percent Auto 4.6 % (0-4); Hematocrit 30.8 % (37.0-47.0); Hemoglobin 9.9 g/dl (12.0-16.0); Imm Gran Abs Auto 0.01 X10*3/uL (0.00-0.03); Imm Gran Pct Auto 0.2 % (0.0-0.4); Lymphocytes Absolute Auto 1.7 X10*3/uL (1.2-4.9); Lymphocytes Percent Auto 34.6 % (20-40); Mean Corpuscular HGB Conc 32.1 g/dl (31.0-35.0); Mean Corpuscular Hemoglobin 31.3 pg (27.0-33.0); Mean Corpuscular Volume 97.5 fL (80.0-98.0); Monocytes Absolute Auto 0.3 X10*3/uL (0.1-1.2); Monocytes Percent Auto 6.4 % (2-11); Neutrophils Absolute Auto 2.7 x10*3/uL (2.0-8.3); Neutrophils Percent Auto 53.4 % (45-73); Platelet Count 220 X10*3/uL (160-400); Red Blood Count 3.16 X10*6/uL (4.20-5.50); Red Cell Distribution Width 13.9 % (11.0-16.0)
[2024-11-02 13:46] LABS: Anion Gap 10 (12-20); Blood Urea Nitrogen 16 mg/dL (9-16); Calcium 8.4 mg/dL (8.4-10.2); Carbon Dioxide 26 mmol/L (22-29); Chloride 109 mmol/L (96-108); Estimated Glomerular Filt Rate 44; Glucose Random 82 mg/dL (60-115); Potassium 4.7 mmol/L (3.3-5.1); Sodium 140 mmol/L (135-145)
== END 2024-11-02 12:28 | disposition home or self-care (01) ==
LOC: HO.HVNA 12:27
PROVIDERS: Visit Provider Internal Medicine
DX: T81.31XD Disruption of external operation (surgical) wound, not elsewhere classified, subsequent encounter (principal)
CPT/HCPCS: 36415; 80048; 85025

== ENCOUNTER 2024-11-06 08:42 | Outpatient (REF) | payer MEDICARE, MEDICAID, SELFPAY ==
--- NOTE | ~2024-11-06 | US_ITS ---
CLINICAL HISTORY: R19.00 - Intra-abdominal and pelvic swelling, mass and lump, unspecified... US abdomen limited Comparison: None provided Findings: Limited soft tissue ultrasound in the supraumbilical region demonstrates a fascial defect measuring up to 16 mm and a small fat containing hernia. Impression: Small fat containing hernia with 16 mm fascial defect. This document has been electronically signed by: Artis Lozano MD on 11/07/2024 11:40:36
--- OUTSIDE RECORDS SUMMARY | 2024-11-06 08:51 | XMS_ITS | Data Portability ---
Author Organization [place] - [facility] Address [address] [place] [id number] Care Team Providers Care Engraver Copperplate Name Role Phone STEPHANIE MARIE Primary Care Provider [facility] OTHER Assessment Encounter Date Assessment Date Assessment [...] going to be 10+ hours, this was [facility]. Exam: Vitals: VSS and afebrile Constitutional: [...] scheduled Time On Scene with Patient: 00:42:25 [email or web address] Not available 05/07/2022 10:35:29 07/04/2022 07/04/2022 Brief [...] after care of this patient according to [facility] infection prevention protocols. [email or web address] Not available 07/04/2022 12:44:13 10/06/2022 10/06/2022 Brief [...] to patient. All questions answered. wound care [phone] - wound care states that they have no apts sooner than but will place pt on cancellation list [email or web address] Not available 10/06/2022 12:38:07 Plan of Treatment Reminders Order Date Submit Date Provider Last Modified By Organization Details Last Modified Time Details Appointments None recorded. Lab rapid SARS CoV 2 Ag, QL IA, respiratory specimen 2022 023 [email or web address] 5 [facility], [address] [place] [address], [address], 12:38:31 Referral None recorded. Procedures None recorded. Surgeries None recorded. Imaging XR, pelvis, 3 or more view - rule out osteomyelit is. tunneling wound over prosthetic hip joint 2022 023 [facility] [address], [place], [address], 3 11:01:28 XR, chest, 2 view 2021 022 [facility] [address], [place], [address], 2 11:58:06 Medication Orders doxycycline hyclate 100 mg capsule 2022 023 [facility]armacy #[id number], [address] [place], [address], 3 12:35:07 albuterol sulfate concentrate 2.5 mg/0.5 mL solution for nebulizatio n 2022 023 [email or web address] [facility]/Pharmacy #0693, [address] [place], [address], 3 12:38:23 ipratropium bromide 0.02 % solution for inhalation 2022 023 [email or web address] 5 [facility]/Pharmacy #0693, [address] [place], [address], 3 12:38:34 prednisone 20 mg tablet 2022 023 [facility] #0693, [address] [place], [address], 3 12:02:14 prednisone 10 mg tablet 2022 023 [email or web address] [facility]/Pharmacy #0693, [address] [place], [address], 3 12:02:10 amoxicillin 875 mg-potassiu m clavulanate 125 mg tablet 2021 022 [email or web address] 5 [facility]/Pharmacy #0693, [address] [place], [address], 3 11:35:26 azithromyci n 250 mg tablet 2021 022 [email or web address] 5 [facility]/Pharmacy #0693, [address] [place], [address], 3 11:35:33 albuterol sulfate concentrate 2.5 mg/0.5 mL solution for nebulizatio n [address]/Pharmacy #0693, [address] [place], [address], 2 10:12:45 ipratropium bromide 0.02 % solution for inhalation [address]/Pharmacy #0693, [address] [place], [address], 2 10:12:42 nystatin 100,000 unit/gram topical cream [address]/Pharmacy #0693, [address] [place], [address], 2 09:43:56 cephalexin 500 mg capsule 2021 022 [email or web address] 5 [facility]/Pharmacy #0693, [address] [place], [address], 3 11:35:49 cephalexin 500 mg capsule 2021 022 [email or web address] 5 [facility]/Pharmacy #0693, [address] [place], [address], 3 11:35:49 Patient TargetsNo targets recorded. Patient Instructions Encounter Date Encounter Id Patient Instructions Last Modified By Organization Details Last Modified Time 01/03/2022 [id number] candidiasis: car e instructions [email or web address] Not available [...] pain. [email or web address] Not available 01/03/2022 13:03:10 05/07/2022 [id number] start mucinex as directed to help thin mucous drink plenty of fluids continue humidifier/steam rest continue albuterol inhaler four times per day for cough/breathing can use peppermints for cough can use honey for cough *[facility] will call to schedule chest xray. Should be complete within the next 24hrs *[facility] will follow up on Wednesday for recheck Please get to the ER if you are feeling worse [email or web address] Not available 05/07/2022 10:16:40 10/06/2022 [id number] Thank you for yo ur visit with [facility] today. You were seen today for treatment [...] in your condition between 8am-10pm, [facility] at [phone] to help navigate your care. [email or web address] Not available 10/06/2022 12:03:22 Reason for Referral None Reported. Results Created Date Observation Date Name Description Value Unit Range Abnormal Flag Note LastModifiedBy Organization Detail LastModifiedTime 07/04/19 23 07/04/2022 rapid SARS CoV 2 Ag, QL IA, respi rator y speci men Covid-19 (ref: neg) negati ve Not Available [facility] [address] [facility], [place], [address], 07/04/2022 11:44:48 07/04/19 23 07/04/2022 rapid SARS CoV 2 Ag, QL IA, respi rator y speci men Control Visual ized/V alid Not Available [facility] [address] [facility], [place], [address], 07/04/2022 11:44:48 07/04/19 23 07/04/2022 rapid SARS CoV 2 Ag, QL IA, respi rator y speci men Location [facility], [facility], [address] [facility], [place] [address], [id number] Not Available [facility] [address] [facility], [place], [address], 07/04/2022 11:44:48 05/08/20 22 05/08/2022 XR, chest [...] Leone M.D. 2021 11:53: 41 AM EST. [employer] [address] [facility] [address], [place], [address], 08/06/2022 12:49:04 10/08/1910/07/2022 XR, pelvi s, 3 or more view [...] NGUYEN M.D. 023 10:47: 33 AM EDT. [email or web address] [employer] [address] [facility] [address], [place], [address], 10/07/2022 18:32:41 10/08/1910/07/2022 hip uni W or [...] ONICAL LY SIGNED BY VON NGUYEN M.D. 10:47: 33 AM EDT. PELVIS COMPLE TE, [...] onical ly signed by VON NGUYEN M.D. 10:47: 33 AM EDT. HIP UNI W [...] NGUYEN M.D. 023 10:47: 33 AM EDT. [email or web address] [employer] [address] [facility] [address], [place], [address], 10/07/2022 18:32:16 Result Notes Documentation Provider Name [...] No focal airspace disease. ELECTRONICALLY SIGNED BY LAHCELLE GALVEZ M.D. 05/08/2022 11:53:41 AM EST. XRAY [...] AM EST. FADI NASCIMENTO [address], [place], [address], [place] [facility] 08/06/2022 12:49:04 Xr, Pelvis, [...] AM EDT. 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 FADI Young [address], [place], [address], [place] [facility] 10/04/2021 10:27:45 Gastric bypass for obesity completed FADI Young [address] [place], [address], [place] [facility] 10/04/2021 10:28:00 bilateral extraction of cataracts completed FADI Young [address], [place], [address], [place] [facility] 10/04/2021 10:28:07 biopsy of breast completed FADI Young [address], [place], [address], [place] [facility] 10/04/2021 10:28:14 tonsilectomy/a denoids completed FADI Young [address], [place], [address], [place] [facility] 10/04/2021 10:29:26 Imaging Results None recorded. Procedure Notes None recorded. Medical Equipment None Reported. Allergies Allergen ID Allergen Name Allergen Category Reaction Reaction Severity Criticality Documentation Date Start Date Code Code System Note Provider Name and Address Organization Details Recorded Time 842898 Non-stero idal anti-infl ammatory agent (product) medicatio n Not available Not available Not available 10/04/2021 79008 005 SNOMED FADI Santiago [address] [place], [address], [place] [facility] 2 10:52:20 [id number] sucralfat e medicatio n Not available Not available Not available 10/06/2022 63784 [facility] Hollie Jiang NP [address] [place], [address], [place] [facility] 3 12:01:45 [...] /min 108 mm[Hg] 62 mm[Hg] Not Available [facility] 2 10:29:44 Date Recorded Oxygen saturation Oxygen saturation in Arterial blood by Pulse oximetry Body temperature Respiratory rate Heart rate Systolic blood pressure Diastolic blood pressure Provider Name and Address Organization Details Last Updated DateTime 3 97 % 97 % 98.2 [degF] 18 /min 65 /min 124 mm[Hg] 68 mm[Hg] Not Available [facility] 3 12:06:44 Date Recorded Body temperature Oxygen saturation Oxygen saturation in Arterial blood by Pulse oximetry Respiratory rate Heart rate Systolic blood pressure Diastolic blood pressure Provider Name and Address Organization Details Last Updated DateTime 2 98.3 [degF] 98 % 98 % 16 /min 82 /min 126 mm[Hg] 74 mm[Hg] Not Available [facility] 2 12:32:06 Date Recorded Respiratory rate Provider Name a sd Address Organization Details Last Updated DateTime 05/07/2022 20 /min FADI NASCIMENTO [address], [place], [address], [place] [facility] 05/07/2022 10:29:35 Date Recorded [...] % 110 mm[Hg] 72 mm[Hg] Not Available [facility] 2 09:48:07 Social History Question Answer Notes LastModified by Organizat ion Details LastModified Time Tobacco Smoking Status Former Smoker FADI Young [address], [place], [address], [place] [facility] 10/04/2021 10:29:06 Do You Have An Advance Directive? Yes [email or web address] Information not available 10/06/2022 What Is Your Code Status? Full Code [email or web address] Information not available 10/06/2022 Within The Past 12 Months, Has It Happened That The Food You Bought Just Didn't Last And You Didn't Have Money To Get More. Never True [email or web address] Information not available 10/06/2022 Within The Past 12 Months, Have You Worried That Your Food Would Run Out Before You Got Money To Buy More. Never True [email or web address] Information not available 10/06/2022 Fall Risk: Do You Feel Unsteady When Standing Or Walking? No [email or web address] Information not available 10/06/2022 Excessive Alcohol Or Drug Use No [email or web address] Information not available 10/06/2022 Does This Patient Have A PCP? Yes [email or web address] Information not available 10/06/2022 ADL: Do You Need Help With Daily Activities Such As Bathing, Preparing Meals, Dressing, Or Cleaning? No [email or web address] Information not available 10/06/2022 What Is Your Current Pack Years? 10-19packye ars [email or web address] Information not available 10/06/2022 Sex: Unknown Functional [...] SNOMED-CT Code Diagnosis ICD10 Code Diagnosis Note [id number] FADI Arevalo [facility] - [address] [place] [address] 10/04/2021 09:57:17 10/09/2021 09:37:20 Wound cellulitis [id number] L03.90 [id number] ASIF LOVELL NP [facility] [address] [place] [address] 01/03/2022 12:26:14 01/05/2022 09:24:30 Candidal intertrigo [id number] B37.2 [id number] FADI NASCIMENTO [facility] [address] [place] [address] 05/07/2022 09:43:13 05/10/2022 20:18:20 Community acquired pneumonia [id number] J18.9 Status of condition: Acute. Testing/Re sults:CXR [...] up precaution s Bilateral lower limb edema [id number] R60.0 Status of condition: Chronic. Testing/Re sults:none Discussion :ddx includes CHF, PVD, DVT Plan, Medication Management & Follow-up recommenda tions:Cont inue eval and work up with pcp [id number] FADI Clemens [facility] [address] [place] [address] 07/04/2022 11:34:05 07/06/2022 08:32:25 Acute bronchitis [id number] J20.9 Essential hypertension [id number] I10 [id number] Hollie Jiang NP [facility] [address] [place] [address] 10/06/2022 11:52:31 10/08/2022 18:44:12 Wound cellulitis [id number] L03.90 Status of condition: Exacerbati on/Acute on [...] Hall Member ID Guarantor Name 01/03/2022 1 [facility] (MEDICARE REPLACEMENT/A DVANTAGE - PPO) [facility] [id number] [facility] 10/09/2022 1 [facility] (MEDICARE REPLACEMENT/A DVANTAGE - PPO) [id number] [place] [address] [id number] [facility] 08/20/2020 1 *SELF PAY* Mayra Rodriguez [id number] [facility] 10/09/[address] [facility] (MEDICARE REPLACEMENT/A DVANTAGE - HMO) [id number] [facility] [id number] [facility] 12/17/2022 2 [place] [facility] Mayra Gatesman [id number] [facility] 01/03/2022 1 [facility] (MEDICARE REPLACEMENT/A DVANTAGE - HMO) [id number] [facility] [id number] [facility] 10/09/2021 1 [facility] (MEDICARE REPLACEMENT/A DVANTAGE - HMO) [facility] [id number] [facility] 10/09/2021 1 [facility] (MEDICARE REPLACEMENT/A DVANTAGE - HMO) [facility] [id number] [facility] Notes Date Note Type Note Provider Name [...] today.Of note does reports she went to [facility] last night to get this looked at and she left after the wait was going to be 10+ hours, this was [facility]. FADI Young [address], [place], [address], [place] [facility] 10/04/2021 11:19:03 01/03/2022 text/html [...] well. ASIF LOVELL NP [address], [place], [address], [place] [facility] 01/03/2022 13:03:27 05/07/2022 text/html [...] showed RBBB. FADI NASCIMENTO [address], [place], [address], [place] [facility] 05/07/2022 10:38:42 07/04/2022 text/html [...] been helping. FADI Clemens [address], [place], [address], [place] [facility] 07/04/2022 12:45:03 10/06/2022 text/html [...] edema. Hollie Jiang NP [address], [place], [address], [place] [facility] 10/06/2022 12:38:29 OBGyn Episode No OBEpisode recorded.
== END 2024-11-06 08:43 | disposition home or self-care (01) ==
LOC: HO.HMGCX 08:42
PROVIDERS: PCP Internal Medicine; Visit Provider Nurse Practitioner
DX: R19.00 Intra-abdominal and pelvic swelling, mass and lump, unspecified site (principal)
CPT/HCPCS: 76705

== ENCOUNTER → 2024-11-06 08:48 | Outpatient (BNV) | payer MEDICARE, MEDICAID, SELFPAY | PROVIDERS: PCP Internal Medicine; Visit Provider Radiology Vascular & Interventional Radiology | DX: K42.9 Umbilical hernia without obstruction or gangrene (principal) | CPT/HCPCS: 76705 ==

== ENCOUNTER 2024-11-06 14:30 | Outpatient (RCR) | payer MEDICARE, MEDICAID, SELFPAY | END 2024-11-06 16:32 | disposition home or self-care (01) | LOC: HO.WCC 14:30 | PROVIDERS: PCP Internal Medicine; Visit Provider Surgery | DX: L98.498 Non-pressure chronic ulcer of skin of other sites with other specified severity (principal); T81.31XA Disruption of external operation (surgical) wound, not elsewhere classified, initial encounter; Y93.9 Activity, unspecified; Y92.9 Unspecified place or not applicable; Y99.9 Unspecified external cause status; Z87.891 Personal history of nicotine dependence; Z79.2 Long term (current) use of antibiotics; Z95.828 Presence of other vascular implants and grafts; Z79.01 Long term (current) use of anticoagulants; Z79.899 Other long term (current) drug therapy | CPT/HCPCS: 11042; 97597; 99212 ==

== ENCOUNTER 2024-11-08 11:35 | Outpatient (REF) | payer MEDICARE, MEDICAID, SELFPAY ==
--- OUTSIDE RECORDS SUMMARY | 2024-11-08 14:58 | XMS_ITS | Data Portability ---
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: Vitals: VSS and afebrile Constitutional: 74 [...] after care of this patient according to [facility]'s infection prevention protocols. [email or web address] Not available 07/04/2022 12:44:13 10/06/2022 10/06/2022 Brief [...] to patient. All questions answered. wound care [phone] - wound care states that they have no apts sooner than but will place pt on cancellation list Not available 10/06/2022 12:38:07 Plan of Treatment Reminders Order Date Submit Date Provider Last Modified By Organization Details Last Modified Time Details Appointments None recorded. Lab rapid SARS CoV 2 Ag, QL [place], respiratory specimen 2022 023 [email or web address] 5 [facility], [address] [place] [address], [address], 12:38:31 Referral None recorded. Procedures None recorded. Surgeries None recorded. Imaging XR, pelvis, 3 or more view - rule out osteomyelit is. tunneling wound over [facility] 2022 023 [facility] [address], [place], [address], 3 11:01:28 XR, chest, 2 view 2021 022 [facility] [address], [place], [address], 2 11:58:06 Medication Orders doxycycline hyclate 100 mg capsule 2022 023 [facility] #[id number], [address] [place], [address], 3 12:35:07 albuterol sulfate concentrate 2.5 mg/0.5 mL solution for nebulizatio n 2022 023 [email or web address]acy #0693, [address] [place], [address], 3 12:38:23 ipratropium bromide 0.02 % solution for inhalation 2022 023 [email or web address] 5 [facility]/Pharmacy #0693, [address] [place], [address], 3 12:38:34 prednisone 20 mg tablet 2022 023 [email or web address] [facility], [address] [place], [address], 3 12:02:14 prednisone 10 mg tablet 2022 023 [email or web address] [facility]acy #0693, [address] [place], [address], 3 12:02:10 amoxicillin 875 mg-potassiu m clavulanate 125 mg tablet 2021 022 [email or web address] 5 [facility]acy #0693, [address] [place], [address], 3 11:35:26 azithromyci n 250 mg tablet 2021 022 [email or web address] 5 [facility]armacy #0693, [address] [place], [address], 3 11:35:33 albuterol sulfate concentrate 2.5 mg/0.5 mL solution for nebulizatio n [address]/Pharmacy #0693, [address] [place], [address], 2 10:12:45 ipratropium bromide 0.02 % solution for inhalation [address]/Pharmacy #0693, [address] [place], [address], 2 10:12:42 nystatin 100,000 unit/gram topical cream [address]/Pharmacy #0693, [address] [place], [address], 2 09:43:56 cephalexin 500 mg capsule 2021 022 [email or web address] 5 [facility]acy #0693, [address] [place], [address], 3 11:35:49 cephalexin 500 mg capsule 2021 022 [email or web address] 5 [facility]/Pharmacy #0693, [address] [place], [address], 3 11:35:49 Patient TargetsNo targets recorded. Patient Instructions Encounter Date Encounter Id Patient Instructions Last Modified By Organization Details Last Modified Time 01/03/2022 [id number] candidiasis: car e instructions [email or web address] Not available [...] pain. [email or web address] Not available 01/03/2022 13:03:10 05/07/2022 [id number] start mucinex as directed to help thin mucous drink plenty of fluids continue humidifier/steam rest continue albuterol inhaler four times per day for cough/breathing can use peppermints for cough can use honey for cough *[facility] will call to schedule chest xray. Should be complete within the next 24hrs *[facility] will follow up on Wednesday for recheck Please get to the ER if you are feeling worse [email or web address] Not available 05/07/2022 10:16:40 10/06/2022 [id number] Thank you for yo ur visit with [facility] today. You were seen today for treatment [...] in your condition between 8am-10pm, [facility] at [phone] to help navigate your care. [email or web address] Not available 10/06/2022 12:03:22 Reason for Referral None Reported. Results Created Date Observation Date Name Description Value Unit Range Abnormal Flag Note LastModifiedBy Organization Detail LastModifiedTime 07/04/19 23 07/04/2022 rapid SARS CoV 2 Ag, QL IA, respi rator y speci men Covid-19 (ref: neg) negati ve Not Available [facility] [address], [place], [address], 07/04/2022 11:44:48 07/04/19 23 07/04/2022 rapid SARS CoV 2 Ag, QL IA, respi rator y speci men Control Visual ized/V alid Not Available [facility] [address] [facility], [place], [address], 07/04/2022 11:44:48 07/04/19 23 07/04/2022 rapid SARS CoV 2 Ag, QL IA, respi rator y speci men Location [facility], [address], [place] [address], [id number] Not Available [facility] [address], [place], [address], 07/04/2022 11:44:48 05/08/20 22 05/08/2022 XR, chest [...] Leone M.D. 2021 11:53: 41 AM EST. [email or web address] [employer] [address], [place], [address], 08/06/2022 12:49:04 10/08/1910/07/2022 XR, pelvi s, 3 [...] NGUYEN M.D. 023 10:47: 33 AM EDT. [email or web address] [employer] [address], [place], [address], 10/07/2022 18:32:41 10/08/1910/07/2022 hip uni W or [...] NGUYEN M.D. 023 10:47: 33 AM EDT. [email or web address] [employer] [address], [place], [address], 10/07/2022 18:32:16 Result Notes Documentation Provider Name [...] AM EST. FADI NASCIMENTO [address], [place], [address], [place] [facility] 08/06/2022 12:49:04 Xr, Pelvis, [...] AM EDT. 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 FADI Young [address], [place], [address], [place] [facility] 10/04/2021 10:27:45 Gastric bypass for obesity completed FADI Young [address] [place], [address], [place] [facility] 10/04/2021 10:28:00 bilateral extraction of cataracts completed FADI Young [address], [place], [address], [place] [facility] 10/04/2021 10:28:07 biopsy of breast completed FADI Young [address], [place], [address], [place] [facility] 10/04/2021 10:28:14 tonsilectomy/a denoids completed FADI Young [address], [place], [address], [place] [facility] 10/04/2021 10:29:26 Imaging Results None recorded. Procedure Notes None recorded. Medical Equipment None Reported. Allergies Allergen ID Allergen Name Allergen Category Reaction Reaction Severity Criticality Documentation Date Start Date Code Code System Note Provider Name and Address Organization Details Recorded Time 534732 Non-stero idal anti-infl ammatory agent (product) medicatio n Not available Not available Not available 10/04/2021 36162 005 SNOMED FADI Santiago [address] [place], [address], [place] [facility] 2 10:52:20 [id number] sucralfat e medicatio n Not available Not available Not available 10/06/2022 [id number] RxNorm Hollie Jiang NP [address] [place], [address], [place] [facility] 3 12:01:45 [...] /min 108 mm[Hg] 62 mm[Hg] Not Available [facility] 2 10:29:44 Date Recorded Oxygen saturation Oxygen saturation in Arterial blood by Pulse oximetry Body temperature Respiratory rate Heart rate Systolic blood pressure Diastolic blood pressure Provider Name and Address Organization Details Last Updated DateTime 3 97 % 97 % 98.2 [degF] 18 /min 65 /min 124 mm[Hg] 68 mm[Hg] Not Available [facility] 3 12:06:44 Date Recorded Body temperature Oxygen saturation Oxygen saturation in Arterial blood by Pulse oximetry Respiratory rate Heart rate Systolic blood pressure Diastolic blood pressure Provider Name and Address Organization Details Last Updated DateTime 2 98.3 [degF] 98 % 98 % 16 /min 82 /min 126 mm[Hg] 74 mm[Hg] Not Available [facility] 2 12:32:06 Date Recorded Respiratory rate Provider Name a ca Address Organization Details Last Updated DateTime 05/07/2022 20 /min FADI NASCIMENTO [address], [place], [address], [place] [facility] 05/07/2022 10:29:35 Date Recorded [...] % 110 mm[Hg] 72 mm[Hg] Not Available [facility] 2 09:48:07 Social History Question Answer Notes LastModified by Organizat ion Details LastModified Time Tobacco Smoking Status Former Smoker FADI Young [address], [place], [address], [place] [facility] 10/04/2021 10:29:06 Do You Have An Advance Directive? Yes [email or web address] Information not available 10/06/2022 What Is Your Code Status? Full Code [email or web address] Information not available 10/06/2022 Within The Past 12 Months, Has It Happened That The Food You Bought Just Didn't Last And You Didn't Have Money To Get More. Never True [email or web address] Information not available 10/06/2022 Within The Past 12 Months, Have You Worried That Your Food Would Run Out Before You Got Money To Buy More. Never True [email or web address] Information not available 10/06/2022 Fall Risk: Do You Feel Unsteady When Standing Or Walking? No Information not available 10/06/2022 Excessive Alcohol Or Drug Use No [email or web address] Information not available 10/06/2022 Does This Patient Have A PCP? Yes [email or web address] Information not available 10/06/2022 ADL: Do You Need Help With Daily Activities Such As Bathing, Preparing Meals, Dressing, Or Cleaning? No [email or web address] Information not available 10/06/2022 What Is Your [...] SNOMED-CT Code Diagnosis ICD10 Code Diagnosis Note [id number] FADI Arevalo [facility] - [address] [place] [address] 10/04/2021 09:57:17 10/09/2021 09:37:20 Wound cellulitis [id number] L03.90 [id number] ASIF LOVELL NP [facility] [address] [place] [address] 01/03/2022 12:26:14 01/05/2022 09:24:30 Candidal intertrigo [id number] B37.2 [id number] FADI NASCIMENTO [facility] [address] [place] [address] 05/07/2022 09:43:13 05/10/2022 20:18:20 Community acquired pneumonia [id number] J18.9 Status of condition: Acute. Testing/Re sults:CXR [...] up precaution s Bilateral lower limb edema [id number] R60.0 Status of condition: Chronic. Testing/Re sults:none Discussion :ddx includes CHF, PVD, DVT Plan, Medication Management & Follow-up recommenda tions:Cont inue eval and work up with pcp [id number] FADI Clemens [facility] [address] [place] [address] 07/04/2022 11:34:05 07/06/2022 08:32:25 Acute bronchitis 40652879 J20.9 Essential hypertension [id number] I10 [id number] Hollie Jiang NP [facility] [address] [place] [address] 10/06/2022 11:52:31 10/08/2022 18:44:12 Wound cellulitis [id number] L03.90 Status of condition: Exacerbati on/Acute on [...] Hall Member ID Guarantor Name 01/03/2022 1 [facility] (MEDICARE REPLACEMENT/A DVANTAGE - PPO) [facility] [id number] [facility] 10/09/2022 1 [facility] (MEDICARE REPLACEMENT/A DVANTAGE - PPO) [id number] [place] [address] [id number] [facility] 08/20/2020 1 *SELF PAY* Mayra Rodriguez [id number] [facility] 10/09/2021 1 [facility] (MEDICARE REPLACEMENT/A DVANTAGE - HMO) [id number] [facility] [id number] [facility] 12/17/2022 2 [place] [facility] Mayra Gatesman [id number] [facility] 01/03/2022 1 [facility] (MEDICARE REPLACEMENT/A DVANTAGE - HMO) [id number] [facility] [id number] [facility] 10/09/2021 1 [facility] (MEDICARE REPLACEMENT/A DVANTAGE - HMO) [facility] [id number] [facility] 10/09/2021 1 [facility] (MEDICARE REPLACEMENT/A DVANTAGE - HMO) [facility] [id number] [facility] Notes Date Note Type Note Provider [...] today.Of note does reports she went to [facility] ER last night to get this looked at and she left after the wait was going to be 10+ hours, [place] [facility] FADI Young [address], [place], [address], [place] [facility] 10/04/2021 11:19:03 01/03/2022 text/html [...] well. ASIF LOVELL NP [address], [place], [address], [place] [facility] 01/03/2022 13:03:27 05/07/2022 text/html [...] showed RBBB. FADI NASCIMENTO [address], [place], [address], [place] [facility] 05/07/2022 10:38:42 07/04/2022 text/html [...] been helping. FADI Clemens [address], [place], [address], [place] [facility] 07/04/2022 12:45:03 10/06/2022 text/html [...] edema. Hollie Jiang NP [address], [place], [address], [place] [facility] 10/06/2022 12:38:29 OBGyn Episode No OBEpisode recorded.
[2024-11-08 16:44] LABS: MANUAL DIFF FLAG NO
[2024-11-08 16:49] LABS: Hematocrit 32.6 % (37.0-47.0); Hemoglobin 10.4 g/dl (12.0-16.0); Imm Gran Abs Auto 0.02 X10*3/uL (0.00-0.03); Imm Gran Pct Auto 0.3 % (0.0-0.4); Lymphocytes Absolute Auto 2.0 X10*3/uL (1.2-4.9); Mean Corpuscular HGB Conc 31.9 g/dl (31.0-35.0); Mean Corpuscular Hemoglobin 31.0 pg (27.0-33.0); Mean Corpuscular Volume 97.3 fL (80.0-98.0); NRBC Abs Auto 0.000 X10*3/uL (0.0-0.012); NRBC Pct Auto 0.0 /100WBC (0.0-0.2); Platelet Count 230 X10*3/uL (160-400); Red Blood Count 3.35 X10*6/uL (4.20-5.50); White Blood Count 5.7 X10*3/uL (4.8-10.8)
[2024-11-08 16:55] LABS: Anion Gap 14 (12-20); Blood Urea Nitrogen 17 mg/dL (9-16); Calcium 8.5 mg/dL (8.4-10.2); Carbon Dioxide 24 mmol/L (22-29); Chloride 105 mmol/L (96-108); Estimated Glomerular Filt Rate 45; Potassium 5.2 mmol/L (3.3-5.1); Sodium 138 mmol/L (135-145)
== END 2024-11-08 11:36 | disposition home or self-care (01) ==
LOC: HO.HVNA 11:35
PROVIDERS: PCP Internal Medicine; Visit Provider Internal Medicine
DX: T81.31XD Disruption of external operation (surgical) wound, not elsewhere classified, subsequent encounter (principal)
CPT/HCPCS: 36415; 80048; 85025

== ENCOUNTER 2024-11-13 13:33 | Outpatient (AMB) | payer MEDICARE, MEDICAID, SELFPAY ==
--- OUTSIDE RECORDS SUMMARY | 2024-11-13 13:59 | XMS_ITS | Data Portability ---
Author Organization [place] - [facility] Address [address] [place] [id number] Care Team Providers Care Clinical Orthoptist Name Role Phone STEPHANIE MARIE Primary Care [...] going to be 10+ hours, this was [facility]. Exam: Vitals: VSS and afebrile Constitutional: 74 [...] scheduled Time On Scene with Patient: 00:42:25 [email or web address] Not available 05/07/2022 10:35:29 07/04/2022 07/04/2022 Brief [...] of this patient according to [facility]'s infection prevention protocols. Not available 07/04/2022 12:44:13 10/06/2022 10/06/2022 Brief [...] to patient. All questions answered. wound care [phone] - wound care states that they have no apts sooner than but will place pt on cancellation list [email or web address] Not available 10/06/2022 12:38:07 Plan of Treatment Reminders Order Date Submit Date Provider Last Modified By Organization Details Last Modified Time Details Appointments None recorded. Lab rapid SARS CoV 2 Ag, QL IA, respiratory specimen 2022 023 [email or web address] 5 [facility], [address] [place] [address], [id number], 12:38:31 Referral None recorded. Procedures None recorded. Surgeries None recorded. Imaging XR, pelvis, 3 or more view - rule out osteomyelit is. tunneling wound over prosthetic hip joint 2022 023 [facility]), [address] [facility], [place], [address], 3 11:01:28 XR, chest, 2 view 2021 022 [facility] ([facility]), [address] [facility] [facility] [address], [place], [address], 2 11:58:06 Medication Orders doxycycline hyclate 100 mg capsule 2022 023 [facility]armacy #[id number], [address] [place], [address], 3 12:35:07 albuterol sulfate concentrate 2.5 mg/0.5 mL solution for nebulizatio n 2022 023 [email or web address] [facility]/Pharmacy #0693, [address] [place], [address], 3 12:38:23 ipratropium bromide 0.02 % solution for inhalation 2022 023 [email or web address] 5 [facility]/Pharmacy #0693, [address] [place], [address], 3 12:38:34 prednisone 20 mg tablet 2022 023 [email or web address] [facility]0693, [address] [place], [address], 3 12:02:14 prednisone 10 mg tablet 2022 023 [email or web address] [facility]/Pharmacy #0693, [address] [place], [address], 3 12:02:10 amoxicillin 875 mg-potassiu m clavulanate 125 mg tablet 2021 022 [email or web address] 5 [facility]/Pharmacy #0693, [address] [place], [address], 3 11:35:26 azithromyci n 250 mg tablet 2021 022 [email or web address] 5 [facility]/Pharmacy #0693, [address] [place], [address], 3 11:35:33 albuterol sulfate concentrate 2.5 mg/0.5 mL solution for nebulizatio n [address]/Pharmacy #0693, [address] [place], [address], 2 10:12:45 ipratropium bromide 0.02 % solution for inhalation [address]/Pharmacy #0693, [address] [place], [address], 2 10:12:42 nystatin 100,000 unit/gram topical cream [address]/Pharmacy #0693, [address] [place], [address], 2 09:43:56 cephalexin 500 mg capsule 2021 022 [email or web address] 5 [facility]/Pharmacy #0693, [address] [place], [address], 3 11:35:49 cephalexin 500 mg capsule 2021 022 [email or web address] 5 [facility]/Pharmacy #0693, [address] [place], [address], 3 11:35:49 Patient TargetsNo targets recorded. Patient Instructions Encounter Date Encounter Id Patient Instructions Last Modified By Organization Details Last Modified Time 01/03/2022 [id number] candidiasis: car e instructions [email or web address] Not available [...] pain. [email or web address] Not available 01/03/2022 13:03:10 05/07/2022 [id number] start mucinex as directed to help thin mucous drink plenty of fluids continue humidifier/steam rest continue albuterol inhaler four times per day for cough/breathing can use peppermints for cough can use honey for cough *[facility] will call to schedule chest xray. Should be complete within the next 24hrs *[facility] will follow up on Wednesday for recheck Please get to the ER if you are feeling worse [email or web address] Not available 05/07/2022 10:16:40 10/06/2022 [id number] Thank you for yo ur visit with [facility] today. You were seen today [...] in your condition between 8am-10pm, please call [facility] at [phone] to help navigate your care. [email or web address] Not available 10/06/2022 12:03:22 Reason for Referral None Reported. Results Created Date Observation Date Name Description Value Unit Range Abnormal Flag Note LastModifiedBy Organization Detail LastModifiedTime 07/04/19 23 07/04/2022 rapid SARS CoV 2 Ag, QL IA, respi rator y speci men Covid-19 (ref: neg) negati ve Not Available [facility] [address] [facility], [place], [address], 07/04/2022 11:44:48 07/04/19 23 07/04/2022 rapid SARS CoV 2 Ag, QL IA, respi rator y speci men Control Visual ized/V alid Not Available [facility] [address] [facility], [place], [address], 07/04/2022 11:44:48 07/04/19 23 07/04/2022 rapid SARS CoV 2 Ag, QL IA, respi rator y speci men Location [facility], [facility], [address] [facility], [place] [address], [id number] Not Available [facility] [address] [facility], [place], [address], 07/04/2022 11:44:48 05/08/20 22 05/08/2022 XR, chest [...] Leone M.D. 2021 11:53: 41 AM EST. [email or web address] [employer] [address] [facility] [address], [place], [address], 08/06/2022 12:49:04 10/08/1910/07/2022 XR, pelvi s, 3 [...] NGUYEN M.D. 023 10:47: 33 AM EDT. [email or web address] [employer] [address] [facility] [address], [place], [address], 10/07/2022 18:32:41 10/08/1910/07/2022 hip uni W or [...] NGUYEN M.D. 023 10:47: 33 AM EDT. [email or web address] [employer] [address] [facility] [address], [place], [address], 10/07/2022 18:32:16 Result Notes Documentation Provider Name [...] AM EST. FADI NASCIMENTO [address], [place], [address], [place] [facility] 08/06/2022 12:49:04 Xr, Pelvis, [...] AM EDT. FADI Clemens [address], [place], [address], [place] [facility] 10/07/2022 18:32:41 Procedures Surgical History Date Name Laterality Status Provider Name and Address Organization Details Recorded Time 07/04/19 23 Nebulizer treatment - DH completed FADI Clemens [address], [place], [address], [place] [facility] 07/04/2022 12:38:06 05/07/20 22 Nebulizer treatment - DH completed FADI NASCIMENTO [address], [place], [address], [place] [facility] 05/07/2022 10:29:59 total replacement of right hip joint completed FADI Young [address], [place], [address], [place] [facility] 10/04/2021 10:27:45 Gastric bypass for obesity completed FADI Young [address] [place], [address], [place] [facility] 10/04/2021 10:28:00 bilateral extraction of cataracts completed FADI Young [address], [place], [address], [place] [facility] 10/04/2021 10:28:07 biopsy of breast completed FADI Young [address], [place], [address], [place] [facility] 10/04/2021 10:28:14 tonsilectomy/a denoids completed FADI Young [address], [place], [address], [place] [facility] 10/04/2021 10:29:26 Imaging Results None recorded. Procedure Notes None recorded. Medical Equipment None Reported. Allergies Allergen ID Allergen Name Allergen Category Reaction Reaction Severity Criticality Documentation Date Start Date Code Code System Note Provider Name and Address Organization Details Recorded Time 848812 Non-stero idal anti-infl ammatory agent (product) medicatio n Not available Not available Not available 10/04/2021 47839 005 SNOMED FADI Santiago [address] [place], [address], [place] [facility] 2 10:52:20 [id number] sucralfat e medicatio n Not available Not available Not available 10/06/2022 [id number] RxNorm Hollie Jiang NP [address] [place], [address], [place] [facility] 3 12:01:45 [...] blood by Pulse oximetry Heart rate Systolic And Diastolic Provider Name and Address Organization Details Last Updated DateTime 3 97.5 [degF] 18 /min 95 % 95 % 90 /min 128/78 mm[Hg] Not Available [facility] 3 11:37:17 Date Recorded Respiratory rate Body temperature Oxygen saturation Oxygen saturation in Arterial blood by Pulse oximetry Heart rate Systolic And Diastolic Provider Name and Address Organization Details Last Updated DateTime 2 18 /min 98.4 [degF] 95 % 95 % 60 /min 108/62 mm[Hg] Not Available [facility] 2 10:29:44 Date Recorded Oxygen saturation Oxygen saturation in Arterial blood by Pulse oximetry Body temperature Respiratory rate Heart rate Systolic And Diastolic Provider Name and Address Organization Details Last Updated DateTime 3 97 % 97 % 98.2 [degF] 18 /min 65 /min 124/68 mm[Hg] Not Available [facility] 3 12:06:44 Date Recorded Body temperature Oxygen saturation Oxygen saturation in Arterial blood by Pulse oximetry Respiratory rate Heart rate Systolic And Diastolic Provider Name and Address Organization Details Last Updated DateTime 2 98.3 [degF] 98 % 98 % 16 /min 82 /min 126/74 mm[Hg] Not Available [facility] 2 12:32:06 Date Recorded Respiratory rate Provider Name a me Address Organization Details Last Updated DateTime 05/07/2022 20 /min FADI NASCIMENTO [address], [place], [address], [place] [facility] 05/07/2022 10:29:35 Date Recorded Body temperature Respiratory rate Oxygen saturation Oxygen saturation in Arterial blood by Pulse oximetry Heart rate Heart rate Oxygen saturation Oxygen saturation in Arterial blood by Pulse oximetry Systolic And Diastolic Provider Name and Address Organization Details Last Updated DateTime 2 97.8 [degF] 26 /min 95 % 95 % 84 /min 68 /min 96 % 96 % 110/72 mm[Hg] Not Available [facility] 2 09:48:07 Social History Question Answer Notes LastModified by Organizat ion Details LastModified Time Tobacco Smoking Status Former Smoker FADI Young [address], [place], [address], [place] [facility] 10/04/2021 10:29:06 Do You Have An Advance Directive? Yes Information not available 10/06/2022 What Is Your Code Status? Full Code Information not available 10/06/2022 Within The Past 12 Months, Has It Happened That The Food You Bought Just Didn't Last And You Didn't Have Money To Get More. Never True [email or web address] Information not available 10/06/2022 Within The Past 12 Months, Have You Worried That Your Food Would Run Out Before You Got Money To Buy More. Never True [email or web address] Information not available 10/06/2022 Fall Risk: Do You Feel Unsteady When Standing Or Walking? No [email or web address] Information not available 10/06/2022 Excessive Alcohol Or Drug Use No [email or web address] Information not available 10/06/2022 Does This Patient Have A PCP? Yes [email or web address] Information not available 10/06/2022 ADL: Do You Need Help With Daily Activities Such As Bathing, Preparing Meals, Dressing, Or Cleaning? No [email or web address] Information not available 10/06/2022 What Is Your [...] N Cancer N Dementia N Stroke N Hypothyroidism N Depression Y COPD N Asthma N High Cholesterol N Rheumatoid Arthritis N Pulmonary Embolism N Hypertension Y A-fib N Osteoporosis N Kidney Disease N Gynecological HistoryNo gynecological history recorded. Obstetrics History GPAL:G 0 P 0 0 0 0 Past Encounters Encounter ID Performer Location Encounter Start Date Encounter Closed Date Diagnosis/Indication Diagnosis SNOMED-CT Code Diagnosis ICD10 Code Diagnosis Note [id number] F[facility]I Arevalo [facility] [address] [place] [address] 10/04/2021 09:57:17 10/09/2021 09:37:20 Wound cellulitis [id number] L03.90 [id number] ASIF LOVELL NP [facility] [address] [facility] [address] 01/03/2022 12:26:14 01/05/2022 09:24:30 Candidal intertrigo [id number] B37.2 [id number] FADI NASCIMENTO [facility] [address] [facility] [address] 05/07/2022 09:43:13 05/10/2022 20:18:20 Community acquired pneumonia [id number] J18.9 Status of condition: Acute. Testing/Re sults:CXR [...] up precaution s Bilateral lower limb edema 342614771 R60.0 Status of condition: Chronic. Testing/Re sults:none Discussion :ddx includes CHF, PVD, DVT Plan, Medication Management & Follow-up recommenda tions:Cont inue eval and work up with pcp [id number] FADI Clemens [facility] [address] [facility] [address] 07/04/2022 11:34:05 07/06/2022 08:32:25 Acute bronchitis [id number] J20.9 Essential hypertension [id number] I10 [id number] Hollie Jiang NP [facility] [address] [facility] [address] 10/06/2022 11:52:31 10/08/2022 18:44:12 Wound cellulitis [id number] L03.90 Status of condition: Exacerbati on/Acute on [...] Hall Member ID Guarantor Name 01/03/2022 1 [facility] (MEDICARE REPLACEMENT/A DVANTAGE - PPO) [id number] [place] [address] [id number] [facility] 10/09/2022 1 [facility] (MEDICARE REPLACEMENT/A DVANTAGE - PPO) [id number] [place] [address] [id number] [facility] 08/20/2020 1 *SELF PAY* [facility] [id number] [facility] 10/09/2021 1 [facility] (MEDICARE REPLACEMENT/A DVANTAGE - HMO) [id number] [place] [address] [id number] [facility] 12/17/2022 2 [place] [facility] Mary Lizella [id number] [facility] 01/03/2022 1 [facility] (MEDICARE REPLACEMENT/A DVANTAGE - HMO) [id number] [place] [address] [id number] [facility] 10/09/2021 1 [facility] (MEDICARE REPLACEMENT/A DVANTAGE - HMO) [address] [place] [address] [id number] [facility] 10/09/2021 1 [facility] (MEDICARE REPLACEMENT/A DVANTAGE - HMO) [address] [place] [address] [id number] [facility] Notes Date Note Type Note Provider [...] today.Of note does reports she went to [facility] ER last night to get this looked at and she left after the wait was going to be 10+ hours, this was [facility]. FADI Young [address], [place], [address], [place] [facility] 10/04/2021 11:19:03 01/03/2022 text/html [...] well. ASIF LOVELL NP [address], [place], [address], [place] [facility] 01/03/2022 13:03:27 05/07/2022 text/html [...] showed RBBB. FADI NASCIMENTO [address], [place], [address], [place] [facility] 05/07/2022 10:38:42 07/04/2022 text/html [...] been helping. FADI Clemens [address], [place], [address], [place] [facility] 07/04/2022 12:45:03 10/06/2022 text/html [...] edema. Hollie Jiang NP [address], [place], [address], [place] [facility] 10/06/2022 12:38:29 OBGyn Episode No OBEpisode recorded.
[2024-11-13 14:40] VITALS: PULSE 77; O2SAT 99
--- NOTE | 2024-11-13 14:40 | A.OFFVIS_ITS ---
Vital Signs 3 11/13/24 14:40 Height 4 ft 10 in Pulse 77 Pulse Source Pulse Oximeter Pulse Oximetry (%) 99 Intake Visit Reasons: reff/Bacteremia/Cefazolin Allergies sucralfate (Carafate) Allergy (Intermediate, Verified 11/13/24 14:41) hives NSAIDS (Non-Steroidal Anti-Inflamma Adverse Reaction (Intermediate, Verified 11/13/24 14:41) cannot take due to gastric bypass history HPI Comments Details: She has had 09/28 MSSA and Group A strep in right hip wound. Blood cultures show strep pyogenes x2. She has concern over deep hip infection, chronic OM and has wound open right hip annually and this is worst it has been. [facility] Medical History Atrial fibrillation CKD stage 3a, GFR 45-59 ml/min Osteoporosis Hospital discharge follow-up Acute kidney injury superimposed on CKD Thoracolumbar back pain Decreased GFR ANIYA (acute kidney injury) Self-care deficit in patient living alone Chronic wound Seroma of musculoskeletal structure after musculoskeletal system procedure New onset a-fib History of septic shock Unspecified open wound, right hip, initial encounter Sleep disorder Abnormal skin growth Tubular adenoma of colon Ex-smoker Mitral annular calcification Aortic valve calcification Stasis edema of both lower extremities Family history of colon cancer Nail fungus Nocturnal hypoxemia Right bundle branch block Premature atrial contractions Hip pain, right Soft tissue infection Sepsis Septic shock Acute hypotension Oropharyngeal dysphagia Post-COVID chronic dyspnea Chronic GERD Peripheral vascular disease SOULEYMANE (obstructive sleep apnea) Wound, open, hip or thigh with complication Encounter for general adult medical examination with abnormal findings Preoperative cardiovascular examination Change in bowel movement Traumatic seroma of right thigh Postprocedural seroma of skin and subcutaneous tissue following other procedure Open wound of right hip and thigh Right rib fracture Menopause Pain management Pain management contract agreement Open wound of right lower leg with complication Shortness of breath Cough Edema Influenza A H1N1 infection Cellulitis of right leg Varicose veins of right lower extremity with inflammation Enterococcus faecalis infection Abscess Hip pain, right Obesity Lymphedema Morbid obesity due to excess calories Pre-op evaluation Colon cancer screening Medicare annual wellness visit, subsequent Family history of anesthesia complication Back pain Arthritis Renal calculi Post-influenza syndrome Tremor Peripheral vascular disease Right bundle branch block (RBBB) Aortic valve calcification Mitral annular calcification COPD (chronic obstructive pulmonary disease) Restrictive lung disease Depression, major, recurrent Hypertension, essential Surgical History S/P total right hip arthroplasty History of excision of lesion (10/20/23) History of total hip arthroplasty S/P gastric bypass History of surgery on lower extremity (01/25/23) History of surgery H/O colonoscopy History of cataract extraction History of bilateral tubal ligation History of tonsillectomy Family History Father No problems noted. Mother Alzheimer's disease Maternal Grandmother Cancer Maternal Grandfather No problems noted. Paternal Grandfather No problems noted. Paternal Grandmother No problems noted. Maternal Aunt Cancer Sister Colon cancer Son No problems noted. Daughter No problems noted. Social History Household Members: None Housing: Other Housing Other:: Mobile home Are you a primary certified caregiver to a significant other at home: No Do you presently have visiting nurse or other home services: Yes (Wound Care) Alcohol intake: former Patient Tobacco Use Status: Former Tobacco user Tobacco use type: Cigarette Years Smoked: 40 e-Cigarette/Vaping Use: Former Use Second Hand Smoke Exposure: No Advance Directives Date on File: 03/13/15 service: No Current occupational status: retired and other Current occupation: right handed Cognitive needs: No Hearing needs: No Vision needs: No Female Reproductive History Menstrual Age of Menarche: 13 Review of Systems Const All systems reviewed & are unremarkable except as noted in HPI and below Physical Exam Vital Signs: Last Vital Signs Pulse 77 11/13/24 14:40 Pulse Ox 99 11/13/24 14:40 Const Other: General: cooperative Orientation/consciousness: patient oriented x3 HEENT Head: Yes normal to inspection Mouth: Normal oral and palatal mucosa present Eyes General: appearance normal, both eyes and all related structures Pupils: Equal, round and reactive pupils present Resp Effort & Inspection: normal respiratory effort Cardio Rate: regular rate Rhythm: regular rhythm GI Palpation (GI): Soft to palpation and nontender General: Yes no CVA tenderness Back/Spine/Pelvis Back: no CVA tenderness Skin General skin exam: no rashes or lesions noted Neuro General: patient oriented x3 Cranial nerves: Yes CN's II-XII intact bilaterally and Yes Equal, round and reactive pupils present Extrem General: Yes normal to inspection Psych Appearance: grossly normal Assessment & Plan Assessment & Plan (1) MSSA bacteremia: Code(s): R78.81 - Bacteremia; B95.61 - Methicillin susceptible Staphylococcus aureus infection as the cause of diseases classified elsewhere Category: Medical Plan: na (2) Streptococcal bacteremia: Comment: She is done with PICC line,6 weeks cefazolin Would give po Doxycycline for a month and keflex if appears again. Area is open and infection may recur. ER if hot or red or drainage. Will see only if needed. Code(s): R78.81 - Bacteremia; B95.5 - Unspecified streptococcus as the cause of diseases classified elsewhere Category: Medical Plan: na (3) MSSA (methicillin susceptible Staphylococcus aureus) infection: Code(s): A49.01 - Methicillin susceptible Staphylococcus aureus infection, unspecified site Category: Medical Plan: na Medications: New 2 cephalexin 500 mg PO QID 28 caps 0RF 7 days doxycycline hyclate 100 mg PO BID 60 caps 0RF 30 days Coding Level of Care Code Est Pt Level 3 (45605) Diagnoses MSSA bacteremia R78.81; B95.61 Streptococcal bacteremia R78.81; B95.5 MSSA (methicillin susceptible Staphylococcus aureus) infection A49.01
== END 2024-11-13 14:54 | disposition home or self-care (01) ==
LOC: HO.HID 13:33
PROVIDERS: PCP Internal Medicine; Visit Provider Internal Medicine
DX: R78.81 Bacteremia (principal); B95.61 Methicillin susceptible Staphylococcus aureus infection as the cause of diseases classified elsewhere; B95.5 Unspecified streptococcus as the cause of diseases classified elsewhere; A49.01 Methicillin susceptible Staphylococcus aureus infection, unspecified site
CPT/HCPCS: 99213

== ENCOUNTER → 2024-11-13 13:33 | Outpatient (BNVA) | payer MEDICARE, MEDICAID, SELFPAY | PROVIDERS: PCP Internal Medicine; Visit Provider Internal Medicine | DX: R78.81 Bacteremia (principal); B95.61 Methicillin susceptible Staphylococcus aureus infection as the cause of diseases classified elsewhere; B95.5 Unspecified streptococcus as the cause of diseases classified elsewhere | CPT/HCPCS: 99212 ==

== ENCOUNTER → 2024-11-21 10:01 | Outpatient (REF) | payer MEDICARE, MEDICAID, SELFPAY ==
--- NOTE | 2024-11-21 10:04 | HM_ITS ---
Conclusion: 1. Patient was monitored for total period of 2 days and 21 hours 2. Baseline was atrial fibrillation with average heart of 89 beats per minute with adequate rate control 3. No significant pauses noted 4. Patient marked the counter 3 times without any reported symptoms correlating with atrial fibrillation MTDD
--- OUTSIDE RECORDS SUMMARY | 2024-11-21 10:58 | XMS_ITS | Data Portability ---
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 Exam: Vitals: VSS and afebrile Constitutional: 74 [...] of this patient according to [facility]'s infection prevention protocols. [email or web address] Not available 07/04/2022 12:44:13 10/06/2022 10/06/2022 Brief [...] to patient. All questions answered. wound care [phone] - wound care states that they have no apts sooner than but will place pt on cancellation list Not available 10/06/2022 12:38:07 Plan of Treatment Reminders Order Date Submit Date Provider Last Modified By Organization Details Last Modified Time Details Appointments None recorded. Lab rapid SARS CoV 2 Ag, QL IA, respiratory specimen 2022 023 [email or web address] 5 [facility], [address] [place] [address], [address], 12:38:31 Referral None recorded. Procedures None recorded. Surgeries None recorded. Imaging XR, pelvis, 3 or more view - rule out osteomyelit is. tunneling wound over prosthetic hip joint 2022 023 [facility] [address], [place], [address], 3 11:01:28 XR, chest, 2 view 2021 022 [facility] [address] [facility], [place], [address], 2 11:58:06 Medication Orders doxycycline hyclate [address] capsule [address] [facility]acy #[id number], [address] [place], [address], 3 12:35:07 albuterol sulfate concentrate 2.5 mg/0.5 mL solution for nebulizatio n [email or web address] [facility]/Pharmacy #[id number], [address] [place], [address], 3 12:38:23 ipratropium bromide 0.02 % solution for inhalation 2022 023 [email or web address] 5 [facility]/Pharmacy #[id number], [address] [place], [address], 3 12:38:34 prednisone 20 mg tablet 2022 023 [email or web address] [facility]0693, [address] [place], [address], 3 12:02:14 prednisone 10 mg tablet 2022 023 [email or web address] [facility]/Pharmacy #0693, [address] [place], [address], 3 12:02:10 amoxicillin 875 mg-potassiu m clavulanate 125 mg tablet 2021 022 [email or web address] 5 [facility]armacy #0693, [address] [place], [address], 3 11:35:26 azithromyci n 250 mg tablet 2021 022 [email or web address] 5 [facility]armacy #0693, [address] [place], [address], 3 11:35:33 albuterol sulfate concentrate 2.5 mg/0.5 mL solution for nebulizatio n [address]/Pharmacy #0693, [address] [place], [address], 2 10:12:45 ipratropium bromide 0.02 % solution for inhalation [address]/Pharmacy #0693, [address] [place], [address], 2 10:12:42 nystatin 100,000 unit/gram topical cream [address]/Pharmacy #0693, [address] [place], [address], 2 09:43:56 cephalexin 500 mg capsule 2021 022 [email or web address] 5 [facility]/Pharmacy #0693, [address] [place], [address], 3 11:35:49 cephalexin 500 mg capsule 2021 022 [email or web address] 5 [facility]/Pharmacy #0693, [address] [place], [address], 3 11:35:49 Patient TargetsNo targets recorded. Patient Instructions Encounter Date Encounter Id Patient Instructions Last Modified By Organization Details Last Modified Time 01/03/2022 [id number] candidiasis: car e instructions [email or web address] Not available [...] pain. [email or web address] Not available 01/03/2022 13:03:10 05/07/2022 [id number] start mucinex as directed to help thin mucous drink plenty of fluids continue humidifier/steam rest continue albuterol inhaler four times per day for cough/breathing can use peppermints for cough can use honey for cough *[facility] will call to schedule chest xray. Should be complete within the next 24hrs *[facility] will follow up on Wednesday for recheck Please get to the ER if you are feeling worse [email or web address] Not available 05/07/2022 10:16:40 10/06/2022 [id number] Thank you for yo ur visit with [facility] today. You were seen today for treatment [...] in your condition between 8am-10pm, please call [facility] at [phone] to help navigate your care. Not available 10/06/2022 12:03:22 Reason for Referral None Reported. Results Created Date Observation Date Name Description Value Unit Range Abnormal Flag Note LastModifiedBy Organization Detail LastModifiedTime 07/04/19 23 07/04/2022 rapid SARS CoV 2 Ag, QL IA, respi rator y speci men Covid-19 (ref: neg) negati ve Not Available [facility] [address] [facility], [place], [address], 07/04/2022 11:44:48 07/04/19 23 07/04/2022 rapid SARS CoV 2 Ag, QL IA, respi rator y speci men Control Visual ized/V alid Not Available [facility] [address] [facility], [place], [address], 07/04/2022 11:44:48 07/04/19 23 07/04/2022 rapid SARS CoV 2 Ag, QL IA, respi rator y speci men Location [facility], [facility], [address] [facility], [place] [address], [id number] Not Available [facility] - Home [address] [facility], [place], [address], 07/04/2022 11:44:48 05/08/20 22 05/08/2022 XR, chest [...] Leone M.D. 2021 11:53: 41 AM EST. [email or web address] [employer] [address] [facility] [address], [place], [address], 08/06/2022 12:49:04 10/08/1910/07/2022 XR, pelvi s, 3 [...] NGUYEN M.D. 023 10:47: 33 AM EDT. [email or web address] [employer] [address] [facility] [address], [place], [address], 10/07/2022 18:32:41 10/08/1910/07/2022 hip uni W or [...] NGUYEN M.D. 023 10:47: 33 AM EDT. [email or web address] [employer] [address] [facility] [address], [place], [address], 10/07/2022 18:32:16 Result Notes Documentation Provider Name [...] AM EST. FADI NASCIMENTO [address], [place], [address], [place] [facility] 08/06/2022 12:49:04 Xr, Pelvis, [...] AM EDT. FADI Clemens [address], [place], [address], [place] [facility] 10/07/2022 18:32:41 Procedures Surgical History Date Name Laterality Status Provider Name and Address Organization Details Recorded Time 07/04/19 23 Nebulizer treatment - DH completed FADI Clemens [address], [place], [address], [place] [facility] 07/04/2022 12:38:06 05/07/20 22 Nebulizer treatment - DH completed FADI NASCIMENTO [address], [place], [address], [place] [facility] 05/07/2022 10:29:59 total replacement of right hip joint completed FADI Young [address], [place], [address], [place] [facility] 10/04/2021 10:27:45 Gastric bypass for obesity completed FADI Young [address] [place], [address], [place] [facility] 10/04/2021 10:28:00 bilateral extraction of cataracts completed FADI Young [address], [place], [address], [place] [facility] 10/04/2021 10:28:07 biopsy of breast completed FADI Young [address], [place], [address], [place] [facility] 10/04/2021 10:28:14 tonsilectomy/a denoids completed FADI Young [address], [place], [address], [place] [facility] 10/04/2021 10:29:26 Imaging Results None recorded. Procedure Notes None recorded. Medical Equipment None Reported. Allergies Allergen ID Allergen Name Allergen Category Reaction Reaction Severity Criticality Documentation Date Start Date Code Code System Note Provider Name and Address Organization Details Recorded Time 063724 Non-stero idal anti-infl ammatory agent (product) medicatio n Not available Not available Not available 10/04/2021 71342 005 SNOMED FADI Santiago [address] [place], [address], [place] [facility] 2 10:52:20 [id number] sucralfat e medicatio n Not available Not available Not available 10/06/2022 [id number] RxNorm Hollie Jiang NP [address] [place], [address], [place] [facility] 3 12:01:45 [...] % 60 /min 108/62 mm[Hg] Not Available [facility] 2 10:29:44 Date Recorded Oxygen saturation Oxygen saturation in Arterial blood by Pulse oximetry Body temperature Respiratory rate Heart rate Systolic And Diastolic Provider Name and Address Organization Details Last Updated DateTime 3 97 % 97 % 98.2 [degF] 18 /min 65 /min 124/68 mm[Hg] Not Available [facility] 3 12:06:44 Date Recorded Body temperature Oxygen saturation Oxygen saturation in Arterial blood by Pulse oximetry Respiratory rate Heart rate Systolic And Diastolic Provider Name and Address Organization Details Last Updated DateTime 2 98.3 [degF] 98 % 98 % 16 /min 82 /min 126/74 mm[Hg] Not Available [facility] 2 12:32:06 Date Recorded Respiratory rate Provider Name a nj Address Organization Details Last Updated DateTime 05/07/2022 20 /min FADI NASCIMENTO [address], [place], [address], [place] [facility] 05/07/2022 10:29:35 Date Recorded [...] % 96 % 110/72 mm[Hg] Not Available [facility] 2 09:48:07 Social History Question Answer Notes LastModified by Organizat ion Details LastModified Time Tobacco Smoking Status Former Smoker FADI Young [address], [place], [address], [place] [facility] 10/04/2021 10:29:06 Do You Have An Advance Directive? Yes [email or web address] Information not available 10/06/2022 What Is Your Code Status? Full Code [email or web address] Information not available 10/06/2022 Within The Past 12 Months, Has It Happened That The Food You Bought Just Didn't Last And You Didn't Have Money To Get More. Never True [email or web address] Information not available 10/06/2022 Within The Past 12 Months, Have You Worried That Your Food Would Run Out Before You Got Money To Buy More. Never True [email or web address] Information not available 10/06/2022 Fall Risk: Do You Feel Unsteady When Standing Or Walking? No Information not available 10/06/2022 Excessive Alcohol Or Drug Use No [email or web address] Information not available 10/06/2022 Does This Patient Have A PCP? Yes [email or web address] Information not available 10/06/2022 ADL: Do You Need Help With Daily Activities Such As Bathing, Preparing Meals, Dressing, Or Cleaning? No [email or web address] Information not available 10/06/2022 What Is Your Current Pack Years? 10-19packye ars [email or web address] Information not available 10/06/2022 Sex: Unknown Functional [...] SNOMED-CT Code Diagnosis ICD10 Code Diagnosis Note [id number] FADI Arevalo [facility] [address] [place] [address] 10/04/2021 09:57:17 10/09/2021 09:37:20 Wound cellulitis [id number] L03.90 [id number] ASIF LOVELL NP [facility] [address] [place] [address] 01/03/2022 12:26:14 01/05/2022 09:24:30 Candidal intertrigo [id number] B37.2 [id number] FADI NASCIMENTO [facility] [address] [place] [address] 05/07/2022 09:43:13 05/10/2022 20:18:20 Community acquired pneumonia [id number] J18.9 Status of condition: Acute. Testing/Re sults:CXR [...] up precaution s Bilateral lower limb edema [id number] R60.0 Status of condition: Chronic. Testing/Re sults:none Discussion :ddx includes CHF, PVD, DVT Plan, Medication Management & Follow-up recommenda tions:Cont inue eval and work up with pcp [id number] FADI Clemens [facility] [address] [place] [address] 07/04/2022 11:34:05 07/06/2022 08:32:25 Acute bronchitis [id number] J20.9 Essential hypertension [id number] I10 [id number] Hollie Jiang NP [facility] - [facility] [address] [place] [address] 10/06/2022 11:52:31 10/08/2022 18:44:12 Wound cellulitis [id number] L03.90 Status of condition: Exacerbati on/Acute on [...] Hall Member ID Guarantor Name 01/03/2022 1 [facility] (MEDICARE REPLACEMENT/A DVANTAGE - PPO) [id number] [place] [address] [id number] [facility] 10/09/2022 1 [facility] (MEDICARE REPLACEMENT/A DVANTAGE - PPO) [id number] [place] [address] [id number] [facility] 08/20/2020 1 *SELF PAY* [facility] [id number] [facility] 10/09/2021 1 [facility] (MEDICARE REPLACEMENT/A DVANTAGE - HMO) [id number] [place] [address] [id number] [facility] 12/17/2022 2 [place] [facility] [id number] [facility] 01/03/2022 1 [facility] (MEDICARE REPLACEMENT/A DVANTAGE - HMO) [id number] [place] [address] [id number] [facility] 10/09/2021 1 [facility] (MEDICARE REPLACEMENT/A DVANTAGE - HMO) [address] [place] [address] [id number] [facility] 10/09/2021 1 [facility] (MEDICARE REPLACEMENT/A DVANTAGE - HMO) [address] [place] [address] [id number] [facility] Notes Date Note Type Note Provider [...] today.Of note does reports she went to [facility] ER last night to get this looked at and she left after the wait was going to be 10+ hours, this was [facility]. FADI Young [address], [place], [address], [place] [facility] 10/04/2021 11:19:03 01/03/2022 text/html [...] well. ASIF LOVELL NP [address], [place], [address], [place] [facility] 01/03/2022 13:03:27 05/07/2022 text/html [...] showed RBBB. FADI NASCIMENTO [address], [place], [address], [place] [facility] 05/07/2022 10:38:42 07/04/2022 text/html [...] been helping. FADI Clemens [address], [place], [address], [place] [facility] 07/04/2022 12:45:03 10/06/2022 text/html [...] edema. Hollie Jiang NP [address], [place], [address], [place] [facility] 10/06/2022 12:38:29 OBGyn Episode No OBEpisode recorded.
== END ==
LOC: HO.CARD 10:01
PROVIDERS: PCP Internal Medicine; Visit Provider Nurse Practitioner Family
DX: I48.91 Unspecified atrial fibrillation (principal)
CPT/HCPCS: 93242

== ENCOUNTER → 2024-11-21 10:04 | Outpatient (BNV) | payer MEDICARE, MEDICAID, SELFPAY | PROVIDERS: PCP Internal Medicine; Visit Provider Internal Medicine Cardiovascular Disease | DX: I48.91 Unspecified atrial fibrillation (principal) | CPT/HCPCS: 93244 ==

== ENCOUNTER 2024-11-22 09:25 | Outpatient (AMB) | payer MEDICARE, MEDICAID, SELFPAY ==
--- NOTE | 2024-11-22 09:36 | A.OFFVIS_ITS ---
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 Marketing And Sales Required: No Allergies sucralfate (Carafate) Allergy (Intermediate, Verified 11/22/24 09:56) hives NSAIDS (Non-Steroidal Anti-Inflamma Adverse Reaction (Intermediate, Verified 11/22/24 09:56) cannot take due to gastric bypass history Medication List - Last Reconciled 11/22/24 by Oriana Smith MD acetaminophen 650 mg PO Q6H PRN alendronate (Fosamax) 70 mg PO [place] apixaban (Eliquis) 5 mg PO BID ascorbic acid (vitamin C) 1,000 mg PO DAILY cholecalciferol (vitamin D3) 50 mcg PO DAILY doxycycline hyclate 100 mg PO BID 30 days escitalopram oxalate (Lexapro) 20 mg PO DAILY ferrous sulfate (Feosol) 325 mg PO BEDTIME lorazepam 0.25 mg PO DAILY PRN metoprolol tartrate 25 mg orally 2 tabs in am and 1 tab in pm; Motegrity (prucalopride) 2 mg PO DAILY NS omeprazole 40 mg PO DAILY@0630 primidone 50 mg PO BEDTIME ropinirole 0.25 mg PO DAILY Do you need a note to return to daycare/school/sports/work: No HPI HPI Shortness of breath: Details: GAY IS 79 YEARS OLD VERY PLEASANT LADY, COMES TO SEE ME FOR HER SLEEP APNEA, LAST VISIT 4 MONTHS AGO. SHE USES CPAP VERY REGULARLY EVERY NIGHT. THE USAGE IS THE FOR ABOUT 4-5 HOURS BECAUSE THAT IS THE AMOUNT THAT SHE SLEEPS. SHE HAS NO COMPLAINT IN CONNECTION WITH THE USE OF CPAP. RECENTLY HAS BEEN HOSPITALIZED TWICE FOR TREATMENT OF SEPTICEMIA DUE TO A DRAINING WOUND OVER THE RIGHT HIP. SHE HAS MODERATE DEGREE OF DORSAL KYPHOSIS RESULTING IN RESTRICTIVE LUNG DISEASE AND THAT MAKES HER SHORT OF BREATH WHEN SHE WALKS AROUND. BUT SHE DENIES ANY COUGH OR WHEEZING. [facility] Medical History Atrial fibrillation CKD stage 3a, GFR 45-59 ml/min Osteoporosis Hospital discharge follow-up Acute kidney injury superimposed on CKD Thoracolumbar back pain Decreased GFR ANIYA (acute kidney injury) Self-care deficit in patient living alone Chronic wound Seroma of musculoskeletal structure after musculoskeletal system procedure New onset a-fib History of septic shock Unspecified open wound, right hip, initial encounter Sleep disorder Abnormal skin growth Tubular adenoma of colon Ex-smoker Mitral annular calcification Aortic valve calcification Stasis edema of both lower extremities Family history of colon cancer Nail fungus Nocturnal hypoxemia Right bundle branch block Premature atrial contractions Hip pain, right Soft tissue infection Sepsis Septic shock Acute hypotension Oropharyngeal dysphagia Post-COVID chronic dyspnea Chronic GERD Peripheral vascular disease SOULEYMANE (obstructive sleep apnea) Wound, open, hip or thigh with complication Encounter for general adult medical examination with abnormal findings Preoperative cardiovascular examination Change in bowel movement Traumatic seroma of right thigh Postprocedural seroma of skin and subcutaneous tissue following other procedure Open wound of right hip and thigh Right rib fracture Menopause Pain management Pain management contract agreement Open wound of right lower leg with complication Shortness of breath Cough Edema Influenza A H1N1 infection Cellulitis of right leg Varicose veins of right lower extremity with inflammation Enterococcus faecalis infection Abscess Hip pain, right Obesity Lymphedema Morbid obesity due to excess calories Pre-op evaluation Colon cancer screening Medicare annual wellness visit, subsequent Family history of anesthesia complication Back pain Arthritis Renal calculi Post-influenza syndrome Tremor Peripheral vascular disease Right bundle branch block (RBBB) Aortic valve calcification Mitral annular calcification COPD (chronic obstructive pulmonary disease) Restrictive lung disease Depression, major, recurrent Hypertension, essential Surgical History S/P total right hip arthroplasty History of excision of lesion (10/20/23) History of total hip arthroplasty S/P gastric bypass History of surgery on lower extremity (01/25/23) History of surgery H/O colonoscopy History of cataract extraction History of bilateral tubal ligation History of tonsillectomy Family History Father No problems noted. Mother Alzheimer's disease Maternal Grandmother Cancer Maternal Grandfather No problems noted. Paternal Grandfather No problems noted. Paternal Grandmother No problems noted. Maternal Aunt Cancer Sister Colon cancer Son No problems noted. Daughter No problems noted. Social History Household Members: None Housing: Other Housing Other:: Mobile home Are you a primary managed care analyst to a significant other at home: No Do you presently have visiting nurse or other home services: Yes (Wound Care) Alcohol intake: former Patient Tobacco Use Status: Former Tobacco user Tobacco use type: Cigarette Years Smoked: 40 e-Cigarette/Vaping Use: Former Use Second Hand Smoke Exposure: No Advance Directives Date on File: 03/13/15 service: No Current occupational status: retired and other Current occupation: right handed Cognitive needs: No Hearing needs: No Vision needs: No Female Reproductive History Menstrual Age of Menarche: 13 Review of Systems Const All systems reviewed & are unremarkable except as noted in HPI and below Eyes Reports no additional complaints ENT Reports no additional complaints Card Reports leg edema and Reports dyspnea Resp Reports as per HPI and Reports dyspnea GI Reports no additional complaints Reports no additional complaints Musc Reports back pain and Reports arthralgias (Mild) Skin/Breast Reports system reviewed and no additional complaints, except as documented Neuro Reports no additional complaints Psych Reports anxiety Endo Reports no additional complaints Valeriy/Lymph Reports no additional complaints Physical Exam Vital Signs: Last Vital Signs Pulse 84 11/22/24 09:37 BP 102/62 11/22/24 09:37 Pulse Ox 97 11/22/24 09:37 Oxygen Delivery Method Room Air 11/22/24 09:37 BMI result Body Mass Index 33.6 Const Other: Patient is grossly obese. Her obesity is mainly abdominal and of lower extremities. General: comfortable, no acute distress, alert and awake Orientation/consciousness: patient oriented x3 HEENT Head: Yes normal to inspection General nose exam: No nasal polyps present and No nasal discharge present Face and sinus: Yes sinuses nontender Mouth: oropharynx normal Throat: Yes posterior oropharynx normal (Oropharynx is only slightly crowded, Mallampati class 2) Eyes General: appearance normal, both eyes and all related structures Neck Neck: Yes normal visual inspection, Yes no lymphadenopathy, Yes trachea midline and Yes no JVD Thyroid: Thyroid normal Chest Chest palpation & inspection: normal inspection of the chest, normal palpation of entire chest wall and no tenderness Resp Effort & Inspection: normal respiratory effort Auscultation: clear to auscultation bilaterally, no crackles and no wheezes Percussion: other (Breath sounds are slightly distant but no wheezes or rhonchi are heard) Cardio Palpation: PMI not normal (PMI is not palpable) Rate: regular rate Rhythm: regular rhythm Heart sounds: no gallops and no murmurs GI Palpation (GI): Soft to palpation, Tenderness to palpation present (GI), No hepatosplenomegaly present and Palpable mass present Auscultation: normal bowel sounds Back/Spine/Pelvis Thoracic/Lumbar Spine: thoracic and lumbar spine normal to inspection and thoraco-lumbar ROM limited Neuro General: patient oriented x3 and no focal motor deficits Cranial nerves: Yes CN's II-XII intact bilaterally Extrem General: Yes normal to inspection, Yes no calf tenderness and Yes edema (There is massive edema of both lower extremities. Has compressive stockings) Psych Appearance: grossly normal and well kempt Speech and movement: Normal speech and movement present Results Reviewed Results Reviewed: COMPLIANCE REPORT FOR THE LAST 30 NIGHTS IS REVIEWED. SHE HAS USED 29/30 NIGHTS, 97%. AVERAGE USE IT PER NIGHT 4 HOURS 47 MINUTES. THERE IS SOME AIR LEAK WHICH IS DUE TO LOSE FACIAL SKIN. RESIDUAL AHI 3.2 Assessment & Plan Assessment & Plan (1) COPD (chronic obstructive pulmonary disease): Comment: SHE DOES HAVE HISTORY OF SMOKING IN THE PAST HAS OCCASIONAL COUGH AND SHORTNESS OF BREATH ON WALKING FAST. HOWEVER DOES NOT HAVE ANY WHEEZING ATTACKS. CLINICALLY I DO NOT THINK SHE HAS ANY SIGNIFICANT DEGREE OF COPD Code(s): J44.9 - Chronic obstructive pulmonary disease, unspecified Category: Medical Qualifiers: COPD type: emphysema Emphysema type: other Qualified Code(s): J43.8 - Other emphysema Plan: NO NEED TO USE ANY BRONCHODILATOR INHALERS (2) Restrictive lung disease: Comment: BECAUSE OF HER MODERATE OBESITY AND DORSAL KYPHOSIS , SHE DOES HAVE MILD TO MODERATE DEGREE OF RESTRICTIVE LUNG DISEASE. Code(s): J98.4 - Other disorders of lung Category: Medical Plan: PATIENT IS ADVISE THAT SHE SHOULD TRY TO DO DEEP BREATHING EXERCISES AT LEAST 3 TIMES A DAY (3) SOULEYMANE (obstructive sleep apnea): Comment: PATIENT HAS PAST HISTORY OF OBSTRUCTIVE SLEEP APNEA AND STOPPED USING THE CPAP ABOUT 6 YEARS AGO. NOW SHE IS BACK ON CPAP USAGE. SHE IS VERY COMPLIANT AND SLEEPS WELL. Code(s): G47.33 - Obstructive sleep apnea (adult) (pediatric) Category: Medical Plan: ADVISED TO CONTINUE USING CPAP EVERY NIGHT AND TRY TO KEEP IT ON FOR ABOUT 5 HOURS PER NIGHT Coding Level of Care Code Est Pt Level 3 (83239) Diagnoses Other emphysema J43.8 COPD type: emphysema Emphysema type: other Restrictive lung disease J98.4 SOULEYMANE (obstructive sleep apnea) G47.33
[2024-11-22 09:37] VITALS: BP 102/62; PULSE 84; O2SAT 97; BMI 33.6
== END 2024-11-22 09:56 | disposition home or self-care (01) ==
LOC: HO.HPS 09:26
PROVIDERS: PCP Internal Medicine; Visit Provider Internal Medicine
DX: J43.8 Other emphysema (principal); J98.4 Other disorders of lung; G47.33 Obstructive sleep apnea (adult) (pediatric)
CPT/HCPCS: 99213

== ENCOUNTER → 2024-11-22 09:25 | Outpatient (BNVA) | payer MEDICARE, MEDICAID, SELFPAY | PROVIDERS: PCP Internal Medicine; Visit Provider Internal Medicine | DX: J43.8 Other emphysema (principal); J98.4 Other disorders of lung; G47.33 Obstructive sleep apnea (adult) (pediatric); Z99.89 Dependence on other enabling machines and devices; Z79.01 Long term (current) use of anticoagulants; Z79.2 Long term (current) use of antibiotics; Z79.899 Other long term (current) drug therapy | CPT/HCPCS: 99212 ==

== ENCOUNTER 2024-11-24 09:14 | Outpatient (AMB) | payer MEDICARE, MEDICAID, SELFPAY ==
--- NOTE | 2024-11-24 09:16 | MHC.OFFVIS ---
Vital Signs 11/24/24 09:23 Height 4 ft 10 in Weight 156 lb 8.451 oz BMI 32.7 BP 131/69 Blood Pressure Location Lt brachial Position Sitting Pulse 89 Intake Visit Reasons: ultrasound results Intake Note: Mayra presents in the office as a follow up for her ultrasound. CC: She states she is here for results and not having any concerns! Ladies Suit Operator Required: No Allergies sucralfate (Carafate) Allergy (Intermediate, Verified 11/24/24 09:24) hives NSAIDS (Non-Steroidal Anti-Inflamma Adverse Reaction (Intermediate, Verified 11/24/24 09:24) cannot take due to gastric bypass history HPI HPI ultrasound results: Details: Assessment & Plan (1) Nausea: Code(s): R11.0 - Nausea Category: Medical (2) GERD with esophagitis: Code(s): K21.00 - Gastro-esophageal reflux disease with esophagitis, without bleeding Category: Medical (3) Abdominal wall bulge: Code(s): R19.00 - Intra-abdominal and pelvic swelling, mass and lump, unspecified site Category: Medical Plan I saw this patient a few weeks ago and at that time she had no complaints. Now she is calls and is asking for an urgent visit because of acute onset new GI problems. She now says she has been nauseated since she was discharged from the hospital. New meds: eliquis and metoprolol, but she also had some medications stopped. Her current GI regimen consists of omeprazole (she opens the capsule and put it on food) and Motegrity with the occasional use a bisacodyl for breakthrough constipation. She had her omeprazole stopped r/t renal problems, but she is told now her kidneys are ok. Still, this could be a cause of the nausea so will order lansoprazole since this is metabolized hepatically and is better for renal patients. She was rx'ed zofran w/o much help. She is on requip, but has been for years. ROV 2 weeks. Orders: Orders US abdomen limited Today R19.00 - Intra-abdominal and pelvic swelling, mass and lump, unspecified site Medications: New lansoprazole 30 mg PO DAILY 30 caps 6RF K21.00 - Gastro-esophageal reflux disease with esophagitis, without bleeding [facility] 11/07/24 Findings: Limited soft tissue ultrasound in the supraumbilical region demonstrates a fascial defect measuring up to 16 mm and a small fat containing hernia. Impression: Small fat containing hernia with 16 mm fascial defect. TODAYS VISIT She is doing better now! She had severe staff septicemia and was hospitalized shortly after our last visit. 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 This is the likely source of her nausea, this has resolved. She is not on the lansoprazole, she is back on the omeprazole. She had a rash from carafate, maybe, but also could have been a septic rash. She was waiting for homecare/wound care during this period. SHe will be due for repeat colonoscopy in 2025, we will wait on this so that she can completely recover and discuss this later next year. ROV 6 mos. [facility], [facility] Medical History Hospital discharge follow-up Sepsis with acute renal failure and septic shock Streptococcal bacteremia Bacteremia due to Staphylococcus aureus MSSA bacteremia Atrial fibrillation with rapid ventricular response Atrial fibrillation CKD stage 3a, GFR 45-59 ml/min Osteoporosis Acute kidney injury superimposed on CKD Thoracolumbar back pain Decreased GFR ANIYA (acute kidney injury) Self-care deficit in patient living alone Chronic wound Seroma of musculoskeletal structure after musculoskeletal system procedure New onset a-fib History of septic shock Unspecified open wound, right hip, initial encounter Sleep disorder Abnormal skin growth Tubular adenoma of colon Ex-smoker Mitral annular calcification Aortic valve calcification Stasis edema of both lower extremities Family history of colon cancer Nail fungus Nocturnal hypoxemia Right bundle branch block Premature atrial contractions Hip pain, right Soft tissue infection Sepsis Septic shock Acute hypotension Oropharyngeal dysphagia Post-COVID chronic dyspnea Chronic GERD Peripheral vascular disease SOULEYMANE (obstructive sleep apnea) Wound, open, hip or thigh with complication Encounter for general adult medical examination with abnormal findings Preoperative cardiovascular examination Change in bowel movement Traumatic seroma of right thigh Postprocedural seroma of skin and subcutaneous tissue following other procedure Open wound of right hip and thigh Right rib fracture Menopause Pain management Pain management contract agreement Open wound of right lower leg with complication Shortness of breath Cough Edema Influenza A H1N1 infection Cellulitis of right leg Varicose veins of right lower extremity with inflammation Enterococcus faecalis infection Abscess Hip pain, right Obesity Lymphedema Morbid obesity due to excess calories Pre-op evaluation Colon cancer screening Medicare annual wellness visit, subsequent Family history of anesthesia complication Back pain Arthritis Renal calculi Post-influenza syndrome Tremor Peripheral vascular disease Right bundle branch block (RBBB) Aortic valve calcification Mitral annular calcification COPD (chronic obstructive pulmonary disease) Restrictive lung disease Depression, major, recurrent Hypertension, essential Surgical History S/P total right hip arthroplasty History of excision of lesion (10/20/23) History of total hip arthroplasty S/P gastric bypass History of surgery on lower extremity (01/25/23) History of surgery H/O colonoscopy History of cataract extraction History of bilateral tubal ligation History of tonsillectomy Family History Father No problems noted. Mother Alzheimer's disease Maternal Grandmother Cancer Maternal Grandfather No problems noted. Paternal Grandfather No problems noted. Paternal Grandmother No problems noted. Maternal Aunt Cancer Sister Colon cancer Son No problems noted. Daughter No problems noted. Social History Household Members: None Housing: Other Housing Other:: Mobile home Are you a primary child care lead teacher to a significant other at home: No Do you presently have visiting nurse or other home services: Yes (Wound Care) Alcohol intake: former Patient Tobacco Use Status: Former Tobacco user Tobacco use type: Cigarette Years Smoked: 40 e-Cigarette/Vaping Use: Former Use Second Hand Smoke Exposure: No Advance Directives Date on File: 03/13/15 service: No Current occupational status: retired and other Current occupation: right handed Cognitive needs: No Hearing needs: No Vision needs: No Female Reproductive History Menstrual Age of Menarche: 13 Review of Systems Const Denies fatigue, Denies fever(s), Denies night sweats, Denies poor appetite and Denies weight loss ENT Reports Normal hearing present, Denies dental pain, Denies dysphagia, Denies hearing loss, Denies mouth pain, Denies odynophagia, Denies throat swelling, Denies tongue swelling and Reports other (Dentition adequate) Card Reports no additional complaints Resp Reports no additional complaints GI Details: Denies abdominal pain, Denies melena, Denies bloating, Denies hematochezia, Denies constipation, Denies GI cramping, Denies dysphagia, Denies excessive flatus, Denies early satiety, Reports heartburn, Denies diarrhea, Denies nausea, Denies odynophagia, Denies vomiting and Denies hematemesis Skin/Breast Denies pruritus, Denies lesions, Denies rash and Denies jaundice Neuro Reports Normal hearing present and Denies Abnormal speech present Endo Denies fatigue Aller/Immun Denies throat swelling and Denies tongue swelling Physical Exam Vital Signs: Last Vital Signs Pulse 89 11/24/24 09:23 BP 131/69 11/24/24 09:23 BMI result Body Mass Index 32.7 Const General: cooperative, no acute distress, well developed and well groomed Nutritional Appearance: well nourished and overweight Orientation/consciousness: oriented to person, oriented to place and oriented to time Limitations: No language barrier and ambulation with cane HEENT Head: Yes normocephalic and Yes atraumatic Eyes General: appearance normal, both eyes and all related structures Pupils: Equal, round and reactive pupils present Neck Neck: Yes normal visual inspection and Yes no lymphadenopathy Thyroid: Thyroid normal Resp Effort & Inspection: normal respiratory effort and able to speak in complete sentences Auscultation: clear to auscultation bilaterally Cardio Rate: regular rate Rhythm: regular rhythm Heart sounds: Normal, physiologic split S2 sound present Peripheral pulses: radial pulses present and posterior tibial pulses present GI Inspection: No distended and No Abdominal panniculus present Palpation (GI): Soft to palpation, nontender, no guarding, not rigid, No hepatosplenomegaly present and Hepatosplenomegaly present Percussion: Yes normal to percussion Auscultation: normal bowel sounds Rectal Exam - Female: deferred Skin General skin exam: no rashes or lesions noted, turgor normal, skin not dry, no jaundice, No spider nevi and no striae Rashes: no rashes Nails: normal Neuro General: oriented to person, oriented to place and oriented to time Cranial nerves: Yes Equal, round and reactive pupils present and Yes Normal hearing present Speech: No Abnormal speech present Extrem General: Yes normal to inspection, No clubbing, No cyanosis and No edema Psych Thought process: Normal thought process present and not confabulating Thought content: Normal thought content present Insight: Good insight present (Psych) Judgement: Good judgement present (Psych) Assessment & Plan Assessment & Plan (1) Nausea: Code(s): R11.0 - Nausea Category: Medical (2) GERD with esophagitis: Code(s): K21.00 - Gastro-esophageal reflux disease with esophagitis, without bleeding Category: Medical (3) Constipation: Code(s): K59.00 - Constipation, unspecified Category: Medical Qualifiers: Constipation type: slow transit constipation Qualified Code(s): K59.01 - Slow transit constipation (4) Supraumbilical hernia: Comment: small, 16mm fat containing on 11/2024 Code(s): K43.9 - Ventral hernia without obstruction or gangrene Category: Medical Plan She is doing better now! She had severe staff septicemia and was hospitalized shortly after our last visit. 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 This is the likely source of her nausea, this has resolved. She is not on the lansoprazole, she is back on the omeprazole. She had a rash from carafate, maybe, but also could have been a septic rash. She was waiting for homecare/wound care during this period. She will be due for repeat colonoscopy in 2025, we will wait on this so that she can completely recover and discuss this later next year. ROV 6 mos. Coding Level of Care Code Est Pt Level 3 (89843) Diagnoses Nausea R11.0 GERD with esophagitis K21.00 Slow transit constipation K59.01 Constipation type: slow transit constipation Supraumbilical hernia K43.9
--- OUTSIDE RECORDS SUMMARY | 2024-11-24 09:20 | XMS_ITS | Data Portability ---
Author Organization [place] [facility] Address [address] [place] [id number] Care Team Providers Care Advertising Director Name Role Phone STEPHANIE MARIE Primary Care Provider [phone] [facility] OTHER [phone] Assessment Encounter Date Assessment Date Assessment LastModified [...] going to be 10+ hours, this was [facility]. Exam: Vitals: VSS [...] after care of this patient according to [facility]'s infection prevention protocols. [email or web address] Not available 07/04/2022 12:44:13 10/06/2022 10/06/2022 Brief [...] to patient. All questions answered. wound care [phone] - wound care states that they have no apts sooner than but will place pt on cancellation list [email or web address] Not available 10/06/2022 12:38:07 Plan of Treatment Reminders Order Date Submit Date Provider Last Modified By Organization Details Last Modified Time Details Appointments None recorded. Lab rapid SARS CoV 2 Ag, QL IA, respiratory specimen 2022 023 [email or web address] 5 [facility], [address] [place] [address], [id number], 12:38:31 Referral None recorded. Procedures None recorded. Surgeries None recorded. Imaging XR, pelvis, 3 or more view - rule out osteomyelit is. tunneling wound over [facility]23 [facility]), [address] [facility], [place], [address], 3 11:01:28 XR, chest, 2 view 2021 022 [facility] ([facility]), [address] [facility], [place], [address], 2 11:58:06 Medication Orders doxycycline hyclate 100 mg capsule 2022 023 [facility] #[id number], [address] [place], [address], 3 12:35:07 albuterol sulfate concentrate 2.5 mg/0.5 mL solution for nebulizatio n 2022 023 [email or web address] [facility]/Pharmacy #0693, [address] [place], [address], 3 12:38:23 ipratropium bromide 0.02 % solution for inhalation 2022 023 [email or web address] 5 [facility]/Pharmacy #0693, [address] [place], [address], 3 12:38:34 prednisone 20 mg tablet 2022 023 [email or web address] [facility]0693, [address] [place], [address], 3 12:02:14 prednisone 10 mg tablet 2022 023 [email or web address] [facility]acy #0693, [address] [place], [address], 3 12:02:10 amoxicillin 875 mg-potassiu m clavulanate 125 mg tablet 2021 022 [email or web address] 5 [facility]acy #0693, [address] [place], [address], 3 11:35:26 azithromyci n 250 mg tablet 2021 022 [email or web address] 5 [facility]/Pharmacy #0693, [address] [place], [address], 3 11:35:33 albuterol sulfate concentrate 2.5 mg/0.5 mL solution for nebulizatio n [address]/Pharmacy #0693, [address] [place], [address], 2 10:12:45 ipratropium bromide 0.02 % solution for inhalation [address]/Pharmacy #0693, [address] [place], [address], 2 10:12:42 nystatin 100,000 unit/gram topical cream [address]/Pharmacy #0693, [address] [place], [address], 2 09:43:56 cephalexin 500 mg capsule 2021 022 [email or web address] 5 [facility]/Pharmacy #0693, [address] [place], [address], 3 11:35:49 cephalexin 500 mg capsule 2021 022 [email or web address] 5 [facility]/Pharmacy #0693, [address] [place], [address], 3 11:35:49 Patient TargetsNo targets recorded. Patient Instructions Encounter Date Encounter Id Patient Instructions Last Modified By Organization Details Last Modified Time 01/03/2022 [id number] candidiasis: car e instructions [email or web address] Not available [...] pain. [email or web address] Not available 01/03/2022 13:03:10 05/07/2022 [id number] start mucinex as directed to help thin mucous drink plenty of fluids continue humidifier/steam rest continue albuterol inhaler four times per day for cough/breathing can use peppermints for cough can use honey for cough *[facility] will call to schedule chest xray. Should be complete within the next 24hrs *[facility] will follow up on Wednesday for recheck Please get to the ER if you are feeling worse Not available 05/07/2022 10:16:40 10/06/2022 [id number] Thank you for yo ur visit with [facility] today. You were seen today for [...] in your condition between 8am-10pm, please call [facility] at [phone] to help navigate your care. [email or web address] Not available 10/06/2022 12:03:22 Reason for Referral None Reported. Results Created Date Observation Date Name Description Value Unit Range Abnormal Flag Note LastModifiedBy Organization Detail LastModifiedTime 07/04/19 23 07/04/2022 rapid SARS CoV 2 Ag, QL IA, respi rator y speci men Covid-19 (ref: neg) negati ve Not Available [facility] [address] [facility], [place], [address], 07/04/2022 11:44:48 07/04/19 23 07/04/2022 rapid SARS CoV 2 Ag, QL IA, respi rator y speci men Control Visual ized/V alid Not Available [facility] [address] [facility], [place], [address], 07/04/2022 11:44:48 07/04/19 23 07/04/2022 rapid SARS CoV 2 Ag, QL IA, respi rator y speci men Location [facility], [facility], [address] [facility], [place] [address], [phone] Not Available [facility] [address] [facility], [place], [address], 07/04/2022 11:44:48 05/08/20 22 05/08/2022 XR, chest [...] Leone M.D. 2021 11:53: 41 AM EST. [email or web address] [place] [address] [facility] [address], [place], [address], 08/06/2022 12:49:04 10/08/1910/07/2022 XR, pelvi s, 3 [...] NGUYEN M.D. 023 10:47: 33 AM EDT. [email or web address] [facility] [address] [facility] [address], [place], [address], 10/07/2022 18:32:41 10/08/1910/07/2022 hip uni W or [...] NGUYEN M.D. 023 10:47: 33 AM EDT. [email or web address] [facility] [address] [facility] [address], [place], [address], 10/07/2022 18:32:16 Result Notes Documentation Provider Name [...] AM EST. FADI NASCIMENTO [address], [place], [address], [place] [facility] 08/06/2022 12:49:04 Xr, Pelvis, [...] AM EDT. FADI Clemens [address], [place], [address], [place] [facility] 10/07/2022 18:32:41 Procedures Surgical History Date Name Laterality Status Provider Name and Address Organization Details Recorded Time 07/04/19 23 Nebulizer treatment - DH completed FADI Clemens [address], [place], [address], [place] [facility] 07/04/2022 12:38:06 05/07/20 22 Nebulizer treatment - DH completed FADI NASCIMENTO [address], [place], [address], [place] [facility] 05/07/2022 10:29:59 total replacement of right hip joint completed FADI Young [address], [place], [address], [place] [facility] 10/04/2021 10:27:45 Gastric bypass for obesity completed FADI Young [address] [place], [address], [place] [facility] 10/04/2021 10:28:00 bilateral extraction of cataracts completed FADI Young [address], [place], [address], [place] [facility] 10/04/2021 10:28:07 biopsy of breast completed FADI Young [address], [place], [address], [place] [facility] 10/04/2021 10:28:14 tonsilectomy/a denoids completed FADI Young [address], [place], [address], [place] [facility] 10/04/2021 10:29:26 Imaging Results None recorded. Procedure Notes None recorded. Medical Equipment None Reported. Allergies Allergen ID Allergen Name Allergen Category Reaction Reaction Severity Criticality Documentation Date Start Date Code Code System Note Provider Name and Address Organization Details Recorded Time 263952 Non-stero idal anti-infl ammatory agent (product) medicatio n Not available Not available Not available 10/04/2021 43801 005 SNOMED FADI Santiago [address] [place], [address], [place] [facility] 2 10:52:20 [id number] sucralfat e medicatio n Not available Not available Not available 10/06/2022 70362 RxNorm Hollie Jiang NP [address] [place], [address], [place] [facility] 3 12:01:45 [...] % 60 /min 108/62 mm[Hg] Not Available [facility] 2 10:29:44 Date Recorded Oxygen saturation Oxygen saturation in Arterial blood by Pulse oximetry Body temperature Respiratory rate Heart rate Systolic And Diastolic Provider Name and Address Organization Details Last Updated DateTime 3 97 % 97 % 98.2 [degF] 18 /min 65 /min 124/68 mm[Hg] Not Available [facility] 3 12:06:44 Date Recorded Body temperature Oxygen saturation Oxygen saturation in Arterial blood by Pulse oximetry Respiratory rate Heart rate Systolic And Diastolic Provider Name and Address Organization Details Last Updated DateTime 2 98.3 [degF] 98 % 98 % 16 /min 82 /min 126/74 mm[Hg] Not Available [facility] 2 12:32:06 Date Recorded Respiratory rate Provider Name a dc Address Organization Details Last Updated DateTime 05/07/2022 20 /min FADI NASCIMENTO [address], [place], [address], [place] [facility] 05/07/2022 10:29:35 Date Recorded [...] % 96 % 110/72 mm[Hg] Not Available [facility] 2 09:48:07 Social History Question Answer Notes LastModified by Organizat ion Details LastModified Time Tobacco Smoking Status Former Smoker FADI Young [address], [place], [address], [place] [facility] 10/04/2021 10:29:06 Do You Have An Advance Directive? Yes [email or web address] Information not available 10/06/2022 What Is Your Code Status? Full Code Information not available 10/06/2022 Within The Past 12 Months, Has It Happened That The Food You Bought Just Didn't Last And You Didn't Have Money To Get More. Never True [email or web address] Information not available 10/06/2022 Within The Past 12 Months, Have You Worried That Your Food Would Run Out Before You Got Money To Buy More. Never True [email or web address] Information not available 10/06/2022 Fall Risk: Do You Feel Unsteady When Standing Or Walking? No Information not available 10/06/2022 Excessive Alcohol Or Drug Use No [email or web address] Information not available 10/06/2022 Does This Patient Have A PCP? Yes [email or web address] Information not available 10/06/2022 ADL: Do You Need Help With Daily Activities Such As Bathing, Preparing Meals, Dressing, Or Cleaning? No [email or web address] Information not available 10/06/2022 What Is Your Current Pack Years? 10-19packye ars [email or web address] Information not available 10/06/2022 Sex: Unknown Functional [...] SNOMED-CT Code Diagnosis ICD10 Code Diagnosis Note [id number] FADI Arevalo [facility] [address] [place] [address] 10/04/2021 09:57:17 10/09/2021 09:37:20 Wound cellulitis 780875664 L03.90 [id number] ASIF LOVELL NP [facility] [address] [place] [address] 01/03/2022 12:26:14 01/05/2022 09:24:30 Candidal intertrigo [id number] B37.2 [id number] FADI NASCIMENTO [facility] [address] [place] [address] 05/07/2022 09:43:13 05/10/2022 20:18:20 Community acquired pneumonia [id number] J18.9 Status of condition: Acute. Testing/Re sults:CXR [...] up precaution s Bilateral lower limb edema [id number] R60.0 Status of condition: Chronic. Testing/Re sults:none Discussion :ddx includes CHF, PVD, DVT Plan, Medication Management & Follow-up recommenda tions:Cont inue eval and work up with pcp [id number] FADI Clemens [facility] [address] [place] [address] 07/04/2022 11:34:05 07/06/2022 08:32:25 Acute bronchitis [id number] J20.9 Essential hypertension [id number] I10 [id number] Hollie Jiang NP [facility] [address] [place] [address] 10/06/2022 11:52:31 10/08/2022 18:44:12 Wound cellulitis [id number] L03.90 Status of condition: Exacerbati on/Acute on [...] Hall Member ID Guarantor Name 01/03/2022 1 [facility] (MEDICARE REPLACEMENT/A DVANTAGE - PPO) [id number] [place] [address] [id number] [facility] 10/09/2022 1 [facility] (MEDICARE REPLACEMENT/A DVANTAGE - PPO) [id number] [place] [address] [id number] [facility] 08/20/2020 1 *SELF PAY* [facility] [id number] [facility] 10/09/2021 1 [facility] (MEDICARE REPLACEMENT/A DVANTAGE - HMO) [id number] [place] [address] [id number] [facility] 12/17/2022 2 [place] [facility] [place] [id number] [facility] 01/03/2022 1 [facility] (MEDICARE REPLACEMENT/A DVANTAGE - HMO) [id number] [place] [address] [id number] [facility] 10/09/2021 1 [facility] (MEDICARE REPLACEMENT/A DVANTAGE - HMO) [address] [place] [address] [id number] [facility] 10/09/2021 1 [facility] (MEDICARE REPLACEMENT/A DVANTAGE - HMO) [address] [place] [address] [id number] [facility] Notes Date Note Type Note Provider [...] today.Of note does reports she [facility] ER [facility] night to get this looked at and she left after the wait was going to be 10+ hours, this was [facility]. FADI Young [address], [place], [address], [place] [facility] 10/04/2021 11:19:03 01/03/2022 text/html [...] well. ASIF LOVELL NP [address], [place], [address], [place] [facility] 01/03/2022 13:03:27 05/07/2022 text/html [...] showed RBBB. FADI NASCIMENTO [address], [place], [address], [place] [facility] 05/07/2022 10:38:42 07/04/2022 text/html [...] been helping. FADI Clemens [address], [place], [address], [place] [facility] 07/04/2022 12:45:03 10/06/2022 text/html [...] edema. Hollie Jiang NP [address], [place], [address], [place] [facility] 10/06/2022 12:38:29 OBGyn Episode No OBEpisode recorded.
[2024-11-24 09:23] VITALS: BP 131/69; PULSE 89; BMI 32.7
== END 2024-11-24 09:54 | disposition home or self-care (01) ==
LOC: HO.HGI 09:14
PROVIDERS: PCP Internal Medicine; Visit Provider Nurse Practitioner
DX: R11.0 Nausea (principal); K21.00 Gastro-esophageal reflux disease with esophagitis, without bleeding; K59.01 Slow transit constipation; K43.9 Ventral hernia without obstruction or gangrene
CPT/HCPCS: 99213

== ENCOUNTER → 2024-11-24 09:14 | Outpatient (BNVA) | payer MEDICARE, MEDICAID, SELFPAY | PROVIDERS: PCP Internal Medicine; Visit Provider Nurse Practitioner | DX: K21.00 Gastro-esophageal reflux disease with esophagitis, without bleeding (principal); K59.01 Slow transit constipation; K43.9 Ventral hernia without obstruction or gangrene; R11.0 Nausea | CPT/HCPCS: 99212 ==

== ENCOUNTER 2025-01-01 15:05 | Emergency (ER) | payer MEDICARE, MEDICAID, SELFPAY ==
--- NOTE | ~2025-01-01 | XR_ITS ---
EXAMINATION: XR CHEST CLINICAL INFORMATION: atrial fib, weakness COMPARISON: 10/05/2024. CT chest 08/17/2024. TECHNIQUE: 2 views of the chest were obtained. FINDINGS: Mild cardiac enlargement. Mediastinal and hilar contours are normal. Aortic mural calcifications. The lungs appear grossly clear bilaterally. Minimal atelectasis right base. There is no pneumothorax or pleural effusion. There is no focal osseous or soft tissue abnormality. Healed left rib fractures noted. Degenerative changes of the shoulder joints and spine. There are chronic thoracic spinal compression deformities, with a vertebral plana deformity in the midthoracic region. XR/XR chest 2V IMPRESSION: 1. Mild cardiac enlargement. 2. No active pulmonary disease. 3. Chronic thoracic compression deformities. Electronically signed by: Stevo Em MD 01/01/2025 04:34 PM EDT
[2025-01-01 15:10] VITALS: BP 150/92; PULSE 100; RESP 20; TEMP 36.6; O2SAT 97; BMI 35.3
--- NOTE | 2025-01-01 15:12 | ECG_ITS ---
Test Reason : ARRHTHMIA Blood Pressure : */* mmHG Vent. Rate : 94 BPM Atrial Rate : * BPM P-R Int : * ms QRS Dur : 128 ms QT Int : 356 ms P-R-T Axes : * 101 -15 degrees QTcB Int : 445 ms Atrial fibrillation Right bundle branch block Abnormal ECG When compared with ECG of 28-Sep-2024 14:19, No significant change was found Referred By: Darshana Grigsby Electronically Signed By: JESSICA MCDONALD
--- NOTE | 2025-01-01 15:12 | ED.GENADULT ---
HPI - General Adult General Chief complaint: Arrhythmia/Palpitations Stated complaint: A-Fib Time Seen by Provider: 01/01/25 19:02 Source: patient Mode of arrival: ambulatory Limitations: no limitations History of Present Illness ED Provider: Dr. Valeria Escobar HPI narrative: Patient comes to the emergency room complaining of high blood pressure. Patient states that earlier today, she checked her blood pressure earlier was in the 140s. Patient states that she Googled htn and history of a fib, [employer] said she could stroke out, made the patient anxious, came to the hospital. Patient denies any chest pain or palpitations, no shortness of breath, no visual changes, no headache. Patient states that she is asymptomatic Related Data Home Medications ?Medication ?Instructions ?Recorded ?Confirmed ferrous sulfate 325 mg (65 mg 325 mg PO BEDTIME 04/02/20 12/18/24 iron) tablet (Feosol) escitalopram oxalate 20 mg tablet 20 mg PO DAILY 07/30/20 12/18/24 (Lexapro) lorazepam 0.5 mg tablet 0.25 mg PO DAILY PRN Anxiety 06/24/22 12/18/24 primidone 50 mg tablet 50 mg PO BEDTIME 10/12/23 12/18/24 ascorbic acid (vitamin C) 250 mg 1,000 mg PO DAILY 09/08/24 12/18/24 tablet cholecalciferol (vitamin D3) 50 50 mcg PO DAILY 09/22/24 12/18/24 mcg (2,000 unit) capsule acetaminophen 325 mg tablet 650 mg PO Q6H PRN Pain 09/28/24 12/18/24 omeprazole 40 mg capsule,delayed 40 mg PO DAILY@0630 09/28/24 12/18/24 release Previous Rx's ?Medication ?Instructions ?Recorded Motegrity 2 mg tablet 2 mg PO DAILY #90 tabs 08/30/24 (prucalopride) apixaban 5 mg tablet (Eliquis) 5 mg PO BID #60 tabs 10/10/24 ropinirole 0.25 mg tablet 0.25 mg PO DAILY #90 tabs 11/15/24 metoprolol tartrate 25 mg tablet 25 mg PO .COMPLEX 90 days #270 tabs 12/12/24 alendronate 70 mg tablet (Fosamax) 70 mg PO [place] 90 days #13 tabs 12/27/24 Allergies Allergy/AdvReac Type Severity Reaction Status Date / Time sucralfate (Carafate) Allergy Intermediate hives Verified 01/01/25 15:14 NSAIDS (Non-Steroidal AdvReac Intermediate cannot Verified 01/01/25 15:14 Anti-Inflamma take due to gastric bypass history Review of Systems Review of Systems: Constitutional : No Weight loss, No Fever, No Chills, No Night Sweats, No Fatigue, No Malaise ENT/Mouth : No Hearing loss, No Ear Pain, No Nasal Congestion, No Sinus Pain, No Hoarseness, No sore throat, No Rhinorrhea, No Swallowing Difficulty Eyes: No Eye Pain, No Swelling, No Redness, No Foreign Body, No Discharge, No Vision Changes Cardiovascular : No Chest Pain, No SOB, No Dyspnea on Exertion, No Orthopnea, No Edema, No Palpitations, complaining of high blood pressure than usual Respiratory : No Cough, No Sputum, No Wheezing, No Smoke Exposure, No Dyspnea Gastrointestinal : No Nausea, No Vomiting, No Diarrhea, No Constipation, No abdominal Pain, No Hematochezia, No Melena Genitourinary : no irregular bleeding, No Dysuria, No Urinary Frequency, No Hematuria, No Urinary Incontinence, No Urgency, No Flank Pain, No Urinary Flow Changes, No Hesitancy Musculoskeletal : No joint pain, No Myalgias, No Joint Swelling Skin : No Skin Lesions, No rash Neuro : No Weakness, No Numbness, No Paresthesias, No Loss of Consciousness, No Dizziness, No Headache Psych : Complaining of anxiety, No Depression, No SI/HI/AH/VH, No Social Issues, Heme/Lymph: No Bruising, No Bleeding,No Lymphadenopathy Endocrine : No Polyuria, No Polydipsia, No Temperature Intolerance [facility] Past Medical History Medical History Hospital discharge follow-up Sepsis with acute renal failure and septic shock Streptococcal bacteremia Bacteremia due to Staphylococcus aureus MSSA bacteremia Atrial fibrillation with rapid ventricular response Atrial fibrillation CKD stage 3a, GFR 45-59 ml/min Osteoporosis Acute kidney injury superimposed on CKD Thoracolumbar back pain Decreased GFR ANIYA (acute kidney injury) Self-care deficit in patient living alone Chronic wound Seroma of musculoskeletal structure after musculoskeletal system procedure New onset a-fib History of septic shock Unspecified open wound, right hip, initial encounter Sleep disorder Abnormal skin growth Tubular adenoma of colon Ex-smoker Mitral annular calcification Aortic valve calcification Stasis edema of both lower extremities Family history of colon cancer Nail fungus Nocturnal hypoxemia Right bundle branch block Premature atrial contractions Hip pain, right Soft tissue infection Sepsis Septic shock Acute hypotension Oropharyngeal dysphagia Post-COVID chronic dyspnea Chronic GERD Peripheral vascular disease SOULEYMANE (obstructive sleep apnea) Wound, open, hip or thigh with complication Encounter for general adult medical examination with abnormal findings Preoperative cardiovascular examination Change in bowel movement Traumatic seroma of right thigh Postprocedural seroma of skin and subcutaneous tissue following other procedure Open wound of right hip and thigh Right rib fracture Menopause Pain management Pain management contract agreement Open wound of right lower leg with complication Shortness of breath Cough Edema Influenza A H1N1 infection Cellulitis of right leg Varicose veins of right lower extremity with inflammation Enterococcus faecalis infection Abscess Hip pain, right Obesity Lymphedema Morbid obesity due to excess calories Pre-op evaluation Colon cancer screening Medicare annual wellness visit, subsequent Family history of anesthesia complication Back pain Arthritis Renal calculi Post-influenza syndrome Tremor Peripheral vascular disease Right bundle branch block (RBBB) Aortic valve calcification Mitral annular calcification COPD (chronic obstructive pulmonary disease) Restrictive lung disease Depression, major, recurrent Hypertension, essential Surgical History S/P total right hip arthroplasty History of excision of lesion (10/20/23) History of total hip arthroplasty S/P gastric bypass History of surgery on lower extremity (01/25/23) History of surgery H/O colonoscopy History of cataract extraction History of bilateral tubal ligation History of tonsillectomy Family History Family History Father No problems noted. Mother Alzheimer's disease Maternal Grandmother Cancer Maternal Grandfather No problems noted. Paternal Grandfather No problems noted. Paternal Grandmother No problems noted. Maternal Aunt Cancer Sister Colon cancer Son No problems noted. Daughter No problems noted. Social History Social History Household Members: None Housing: Other Housing Other:: Mobile home Are you a primary caregiver services home to a significant other at home: No Do you presently have visiting nurse or other home services: Yes (Wound Care) Alcohol intake: former Patient Tobacco Use Status: Former Tobacco user Tobacco use type: Cigarette Years Smoked: 40 Smoked in Last 30 Days: No e-Cigarette/Vaping Use: Former Use Second Hand Smoke Exposure: No Use of substances other than those prescribed or required for medical reasons: No Advance Directives: Yes Advance Directives on File: Yes Advance Directives Date on File: 03/13/15 Do you have a plan to hurt others: No Plan service: No Current occupational status: retired and other Current occupation: right handed Cognitive needs: No Hearing needs: No Vision needs: No Physical Exam ED Exam Exam: Appearance: Alert. Oriented X3. No acute distress. Eyes: Pupils equal, round and reactive to light. ENT: Pharynx normal. Neck: Normal inspection. Neck supple. No lymph nodes noted. No crepitus CVS: Normal heart rate and rhythm. Pulses normal. Normal S1 and S2 Respiratory: No respiratory distress. Breath sounds normal. No Wheezing. No rales Abdomen: Soft and nontender. No rigidity. No distention. Skin: Skin warm and dry. Normal skin color. Normal skin turgor. Extremities: No lower extremity edema. No Lacerations. No Rash Neuro: Oriented X 3. No motor deficit. No sensory deficit. Moving all extremities. No slurred speech. CN 2 through 12 grossly intact Psych: calm, cooperative, normal affect Vital Signs: Vital Signs - 24 hr 01/01/25 15:10 01/01/25 18:37 01/01/25 20:14 Temperature 98 F 98.2 F 98.3 F Pulse Rate 100 84 99 Respiratory Rate 20 19 16 Blood Pressure 150/92 H 131/76 Pulse Oximetry 97 95 96 Oxygen Delivery Method Room Air Room Air Room Air BMI result Body Mass Index 35.3 Course Course Course Narrative: Rapid medical examination performed in triage by Darshana Grigsby PA-C. Patient is a 79 year old assigned female at presenting to the emergency department with weakness and concerns for atrial fib. Detailed physical exam and review of systems are deferred to the bit grinder. EKG, labs, imaging, and swabs ordered. Patient placed back in the waiting room pending room availability and results. Medical Decision Making Medical Decision Making [facility] Narrative: My interpretation of EKG: Atrial fibrillation, heart rate 94, atrial fibrillation, no EKG changes No significant abnormality in patient's hematology or chemistry, normal LFTs Chest x-ray does not show any acute abnormality Patient states that she is completely asymptomatic, she was just concerned about her blood pressure being so high. At this time, patient's blood pressure in the 130s, no palpitations. Still in AFib. Patient states that she is currently in AFib and that is a regular rhythm. Patient states that overall she feels well, hungry, requesting to have something to eat before being discharged. Differential Diagnosis Differential Diagnoses: The differential diagnosis associated with the presentation includes (Atrial fibrillation, atrial flutter, hypertension) Admission/Observation Consideration of admission/observation: Escalation of care including admission/observation considered (Given patient's age and symptoms, observation was considered.) Lab Data MDM Lab Attestation statement: I reviewed the patient's lab results. 01/01/25 16:02 01/01/25 16:02 Labs: Lab Results 01/01/25 Range/Units 16:02 WBC 5.8 (4.8-10.8) X10*3/uL RBC 3.92 L (4.20-5.50) X10*6/uL Hgb 11.8 L (12.0-16.0) g/dl Hct 36.8 L (37.0-47.0) % MCV 93.9 (80.0-98.0) fL MCH 30.1 (27.0-33.0) pg MCHC 32.1 (31.0-35.0) g/dl RDW 13.3 (11.0-16.0) % Plt Count 199 (160-400) X10*3/uL MPV 8.5 L (9.4-12.3) fL Immature Gran % (Auto) 0.5 H (0.0-0.4) % Neut % (Auto) 60.6 (45-73) % Lymph % (Auto) 26.7 (20-40) % Cassia % (Auto) 6.5 (2-11) % Eos % (Auto) 5.2 H (0-4) % Baso % (Auto) 0.5 (0-2) % Lymph # (Auto) 1.6 (1.2-4.9) X10*3/uL Cassia # (Auto) 0.4 (0.1-1.2) X10*3/uL Eos # (Auto) 0.3 (0.0-0.4) X10*3/uL Baso # (Auto) 0.0 (0.0-0.2) X10*3/uL Abs Immat Gran (auto) 0.03 (0.00-0.03) X10*3/uL Absolute Neuts (auto) 3.5 (2.0-8.3) x10*3/uL Absolute Nucleated RBC 0.000 (0.0-0.012) X10*3/uL Nucleated RBC % (auto) 0.0 (0.0-0.2) /100WBC PT 13.2 H D (10.9-12.4) SEC INR 1.2 H (0.9-1.1) Sodium 141 (135-145) mmol/L Potassium 5.0 (3.3-5.1) mmol/L Chloride 107 (96-108) mmol/L Carbon Dioxide 25 (22-29) mmol/L Anion Gap 14 (12-20) BUN 20 H (9-16) mg/dL Creatinine 1.12 (0.5-1.4) mg/dL Estim Creat Clear Calc 36.0 Estimated GFR 47 Random Glucose 92 (60-115) mg/dL Calcium 9.1 (8.4-10.2) mg/dL Magnesium 1.9 (1.6-2.6) mg/dL Total Bilirubin 0.2 (0.0-1.0) mg/dL AST 20 (5-31) U/L ALT 8 (0-31) U/L Alkaline Phosphatase 79 (39-117) U/L Troponin I High Sens 2.7 D (<3.5-17.0) ng/L Total Protein 6.7 (6.5-8.0) g/dL Albumin 3.9 (3.5-5.0) g/dL Independent Interpretation I performed an independent interpretation of an: Plain X-Ray Radiology Impression Discussion of test interpretation with radiology: I have reviewed the radiologist's reading. Radiologist Impression: Mild cardiac enlargement. Mediastinal and hilar contours are normal. Aortic mural calcifications. The lungs appear grossly clear bilaterally. Minimal atelectasis right base. There is no pneumothorax or pleural effusion. There is no focal osseous or soft tissue abnormality. Healed left rib fractures noted. Degenerative changes of the shoulder joints and spine. There are chronic thoracic spinal compression deformities, with a vertebral plana deformity in the midthoracic region. XR/XR chest 2V IMPRESSION: 1. Mild cardiac enlargement. 2. No active pulmonary disease. 3. Chronic thoracic compression deformities. Critical Care Time Critical Care Time Critical Care Time: Yes Total Critical Care Time: 35 Attestation: I have personally provided critical care time. Time includes review of lab data, radiology results, discussion with consultants, and monitoring for potential decompensation. Intervention performed as documented. Discharge Plan Discharge Clinical Impression: Chronic hypertension Patient Disposition: Home, Self-Care Instructions: Chronic Hypertension (ED) Prescriptions: No Action ropinirole 0.25 mg tablet 0.25 mg PO DAILY Qty: 90 1RF metoprolol tartrate 25 mg tablet 25 mg PO .COMPLEX 90 Days Qty: 270 3RF Rx Instructions: 25 mg orally 2 tabs in am and 1 tab in pm; alendronate [Fosamax] 70 mg tablet 70 mg PO [place] 90 Days Qty: 13 3RF primidone 50 mg Tablet 50 mg PO BEDTIME acetaminophen 325 mg Tablet 650 mg PO Q6H PRN (Reason: Pain) omeprazole 40 mg capsule,delayed release(DR/EC) 40 mg PO DAILY@0630 escitalopram oxalate [Lexapro] 20 mg tablet 20 mg PO DAILY ferrous sulfate [Feosol] 325 mg (65 mg iron) tablet 325 mg PO BEDTIME lorazepam 0.5 mg tablet 0.25 mg PO DAILY PRN (Reason: Anxiety) Motegrity 2 mg tablet 2 mg PO DAILY Qty: 90 3RF cholecalciferol (vitamin D3) 50 mcg (2,000 unit) capsule 50 mcg PO DAILY Eliquis 5 mg tablet 5 mg PO BID Qty: 60 5RF ascorbic acid (vitamin C) 250 mg tablet 1,000 mg PO DAILY Print Language: Serbian
[2025-01-01 16:06] LABS: MANUAL DIFF FLAG NO
[2025-01-01 16:08] LABS: Hematocrit 36.8 % (37.0-47.0); Hemoglobin 11.8 g/dl (12.0-16.0); Imm Gran Abs Auto 0.03 X10*3/uL (0.00-0.03); Imm Gran Pct Auto 0.5 % (0.0-0.4); Lymphocytes Absolute Auto 1.6 X10*3/uL (1.2-4.9); Mean Corpuscular HGB Conc 32.1 g/dl (31.0-35.0); Mean Corpuscular Hemoglobin 30.1 pg (27.0-33.0); Mean Corpuscular Volume 93.9 fL (80.0-98.0); NRBC Abs Auto 0.000 X10*3/uL (0.0-0.012); NRBC Pct Auto 0.0 /100WBC (0.0-0.2); Platelet Count 199 X10*3/uL (160-400); Red Blood Count 3.92 X10*6/uL (4.20-5.50); White Blood Count 5.8 X10*3/uL (4.8-10.8)
[2025-01-01 16:22] LABS: INTERNATIONAL NORM RATIO 1.2 (0.9-1.1); Prothrombin Time 13.2 SEC (10.9-12.4)
[2025-01-01 16:23] LABS: Alanine Aminotransferase 8 U/L (0-31); Albumin Level 3.9 g/dL (3.5-5.0); Alkaline Phosphatase 79 U/L (39-117); Anion Gap 14 (12-20); Aspartate Amino Transferase 20 U/L (5-31); Blood Urea Nitrogen 20 mg/dL (9-16); Calcium 9.1 mg/dL (8.4-10.2); Carbon Dioxide 25 mmol/L (22-29); Chloride 107 mmol/L (96-108); Creatinine Clr Calc Pharmacy 36.0; Estimated Glomerular Filt Rate 47; Magnesium 1.9 mg/dL (1.6-2.6); Potassium 5.0 mmol/L (3.3-5.1); Sodium 141 mmol/L (135-145); Total Protein 6.7 g/dL (6.5-8.0)
[2025-01-01 16:30] LABS: Troponin-I High Sensitivity 2.7 ng/L (<3.5-17.0)
[2025-01-01 18:37] VITALS: PULSE 84; RESP 19; TEMP 36.8; O2SAT 95
[2025-01-01 20:14] VITALS: BP 131/76; PULSE 99; RESP 16; TEMP 36.8; O2SAT 96
[2025-01-01 21:35] VITALS: BP 131/76; PULSE 99; RESP 16; TEMP 36.8; O2SAT 96
== END 2025-01-01 21:52 | disposition home or self-care (01) ==
PROVIDERS: Physician Assistant Medical; Emergency Provider Emergency Medicine; PCP Internal Medicine
DX: I49.9 Cardiac arrhythmia, unspecified (principal); I48.91 Unspecified atrial fibrillation; I45.10 Unspecified right bundle-branch block; I10 Essential (primary) hypertension; R94.31 Abnormal electrocardiogram [ECG] [EKG]; Z79.899 Other long term (current) drug therapy; Z87.891 Personal history of nicotine dependence
CPT/HCPCS: 36415; 71046; 80053; 83735; 84484; 85025; 85610; 93005; 96372; 99284; 99285

== ENCOUNTER → 2025-01-01 15:12 | Outpatient (BNV) | payer MEDICARE, MEDICAID, SELFPAY | PROVIDERS: Emergency Provider Emergency Medicine; PCP Internal Medicine; Visit Provider Internal Medicine | DX: I48.91 Unspecified atrial fibrillation (principal); I45.10 Unspecified right bundle-branch block | CPT/HCPCS: 93010 ==

== ENCOUNTER → 2025-01-01 15:12 | Outpatient (BNV) | payer MEDICARE, MEDICAID, SELFPAY | PROVIDERS: PCP Internal Medicine; Visit Provider Radiology Diagnostic Radiology | DX: I48.91 Unspecified atrial fibrillation (principal); R53.1 Weakness | CPT/HCPCS: 71046 ==

== ENCOUNTER 2025-01-18 06:04 | Outpatient (REF) | payer MEDICARE, MEDICAID, SELFPAY ==
[2025-01-18 11:38] LABS: Anion Gap 13 (12-20); Blood Urea Nitrogen 28 mg/dL (9-16); Calcium 8.5 mg/dL (8.4-10.2); Carbon Dioxide 24 mmol/L (22-29); Chloride 107 mmol/L (96-108); Estimated Glomerular Filt Rate 58; Potassium 3.9 mmol/L (3.3-5.1); Sodium 140 mmol/L (135-145)
[2025-01-18 12:03] LABS: Total Protein Urine Random < 7 mg/dL (<12)
== END 2025-01-18 06:05 | disposition home or self-care (01) ==
LOC: HO.HMGCLDS 06:04
PROVIDERS: PCP Internal Medicine; Visit Provider Internal Medicine Nephrology
DX: I12.9 Hypertensive chronic kidney disease with stage 1 through stage 4 chronic kidney disease, or unspecified chronic kidney disease (principal); N18.31 Chronic kidney disease, stage 3a; N17.9 Acute kidney failure, unspecified
CPT/HCPCS: 36415; 80051; 82310; 82565; 82570; 84156; 84520

== ENCOUNTER 2025-01-22 08:57 | Outpatient (AMB) | payer MEDICARE, MEDICAID, SELFPAY ==
--- NOTE | 2025-01-22 09:18 | MHC.OFFVIS ---
Vital Signs 01/22/25 09:21 Height 4 ft 10 in Weight 157 lb 13.616 oz BMI 33.0 BP 120/74 Blood Pressure Location Lt brachial Position Sitting Pulse 65 Pulse Source Pulse Oximeter Intake Visit Reasons: 3+ mth f/up holter Coat Finisher Required: No Allergies sucralfate (Carafate) Allergy (Intermediate, Verified 01/22/25 09:22) hives NSAIDS (Non-Steroidal Anti-Inflamma Adverse Reaction (Intermediate, Verified 01/22/25 09:22) cannot take due to gastric bypass history Medication List - Last Reconciled 01/22/25 by Sandrita Gomez, JEAN-C acetaminophen 650 mg PO Q6H PRN alendronate (Fosamax) 70 mg PO [place] 90 days apixaban (Eliquis) 5 mg PO BID ascorbic acid (vitamin C) 1,000 mg PO DAILY cholecalciferol (vitamin D3) 50 mcg PO DAILY escitalopram oxalate (Lexapro) 20 mg PO DAILY ferrous sulfate (Feosol) 325 mg PO BEDTIME lorazepam 0.25 mg PO DAILY PRN metoprolol tartrate 25 mg orally 2 tabs in am and 1 tab in pm; 90 days Motegrity (prucalopride) 2 mg PO DAILY NS primidone 50 mg PO BEDTIME ropinirole 0.25 mg PO DAILY HPI HPI 3+ mth f/up holter: Details: Mayra is a 79 year-old female with past medical history of morbid obesity with prior bariatric surgery, obstructive sleep apnea, hypertension, CKD, persistent atrial fibrillation who presents for follow-up. Today she reports she has been doing well since her last visit in October. She reports good activity tolerance with no concerning symptoms. She has been going to the gym a few times weekly and using the treadmill, stationary bike and rowing machine. She denies shortness of breath with activity. No chest discomfort, heart palpitations, lightheadedness. She is taking all meds as directed and denies any bleeding issues. She has chronic lymphedema in her legs and uses Vel wraps throughout the day and pumping wraps for 1 hour each day. She has had no recent increase in her swelling. [facility] Medical History Hospital discharge follow-up Sepsis with acute renal failure and septic shock Streptococcal bacteremia Bacteremia due to Staphylococcus aureus MSSA bacteremia Atrial fibrillation with rapid ventricular response Atrial fibrillation CKD stage 3a, GFR 45-59 ml/min Osteoporosis Acute kidney injury superimposed on CKD Thoracolumbar back pain Decreased GFR ANIYA (acute kidney injury) Self-care deficit in patient living alone Chronic wound Seroma of musculoskeletal structure after musculoskeletal system procedure New onset a-fib History of septic shock Unspecified open wound, right hip, initial encounter Sleep disorder Abnormal skin growth Tubular adenoma of colon Ex-smoker Mitral annular calcification Aortic valve calcification Stasis edema of both lower extremities Family history of colon cancer Nail fungus Nocturnal hypoxemia Right bundle branch block Premature atrial contractions Hip pain, right Soft tissue infection Sepsis Septic shock Acute hypotension Oropharyngeal dysphagia Post-COVID chronic dyspnea Chronic GERD Peripheral vascular disease SOULEYMANE (obstructive sleep apnea) Wound, open, hip or thigh with complication Encounter for general adult medical examination with abnormal findings Preoperative cardiovascular examination Change in bowel movement Traumatic seroma of right thigh Postprocedural seroma of skin and subcutaneous tissue following other procedure Open wound of right hip and thigh Right rib fracture Menopause Pain management Pain management contract agreement Open wound of right lower leg with complication Shortness of breath Cough Edema Influenza A H1N1 infection Cellulitis of right leg Varicose veins of right lower extremity with inflammation Enterococcus faecalis infection Abscess Hip pain, right Obesity Lymphedema Morbid obesity due to excess calories Pre-op evaluation Colon cancer screening Medicare annual wellness visit, subsequent Family history of anesthesia complication Back pain Arthritis Renal calculi Post-influenza syndrome Tremor Peripheral vascular disease Right bundle branch block (RBBB) Aortic valve calcification Mitral annular calcification COPD (chronic obstructive pulmonary disease) Restrictive lung disease Depression, major, recurrent Hypertension, essential Surgical History S/P total right hip arthroplasty History of excision of lesion (10/20/23) History of total hip arthroplasty S/P gastric bypass History of surgery on lower extremity (01/25/23) History of surgery H/O colonoscopy History of cataract extraction History of bilateral tubal ligation History of tonsillectomy Family History Father No problems noted. Mother Alzheimer's disease Maternal Grandmother Cancer Maternal Grandfather No problems noted. Paternal Grandfather No problems noted. Paternal Grandmother No problems noted. Maternal Aunt Cancer Sister Colon cancer Son No problems noted. Daughter No problems noted. Social History Household Members: None Housing: Other Housing Other:: Mobile home Are you a primary child care teacher to a significant other at home: No Do you presently have visiting nurse or other home services: Yes (Wound Care) Alcohol intake: former Patient Tobacco Use Status: Former Tobacco user Tobacco use type: Cigarette Years Smoked: 40 e-Cigarette/Vaping Use: Former Use Second Hand Smoke Exposure: No Advance Directives Date on File: 03/13/15 service: No Current occupational status: retired and other Current occupation: right handed Cognitive needs: No Hearing needs: No Vision needs: No Female Reproductive History Menstrual Age of Menarche: 13 Review of Systems Const All systems reviewed & are unremarkable except as noted in HPI and below ENT Denies dizziness Card Denies chest pain, Denies chest pain at rest, Denies chest pain with activity, Denies rapid heart rate, Denies pedal edema, Denies edema, Denies leg edema, Denies lightheadedness, Denies palpitations, Denies dyspnea, Denies dyspnea on exertion and Denies orthopnea Resp Denies cough, Denies dyspnea and Denies dyspnea on exertion GI Denies hematochezia and Denies change in stool character Musc Denies abnormal gait, Denies limited range of motion, Denies muscle cramps, Denies muscle weakness, Denies numbness, Denies radiating pain into limb, Denies stiffness and Denies tingling Neuro Denies abnormal gait, Denies dizziness, Denies numbness and Denies tingling Endo Denies palpitations Physical Exam Vital Signs: Last Vital Signs Pulse 65 01/22/25 09:21 BP 120/74 01/22/25 09:21 BMI result Body Mass Index 33.0 Const General: cooperative, healthy appearing, comfortable and no acute distress Orientation/consciousness: patient oriented x3 Neck Neck: Yes normal visual inspection and Yes no JVD Resp Effort & Inspection: normal respiratory effort Auscultation: clear to auscultation bilaterally, no rales, no rhonchi and no wheezes Cardio Rate: regular rate Rhythm: abnormal rhythm Heart sounds: S1 normal heart sound present, S2 normal heart sound present, no gallops, no murmurs and no rubs Neuro General: patient oriented x3 Extrem General: Yes normal to inspection, No no pedal edema and No calf tenderness Psych Appearance: grossly normal Mental Status: mental status grossly normal Speech and movement: Normal speech and movement present Office Procedures EKG Details: Today, read by me, atrial fibrillation with right bundle branch block, rate 65, QTC 386 milliseconds [id number], Complete Assessment & Plan Assessment & Plan (1) Atrial fibrillation: Code(s): I48.91 - Unspecified atrial fibrillation Category: Medical Qualifiers: Atrial fibrillation type: paroxysmal Qualified Code(s): I48.0 - Paroxysmal atrial fibrillation Plan: Newer finding of atrial fibrillation at time of sepsis admission August 2023. Prior to that last sinus ECG strip was 04/14/2024. Her rhythm has been persistent and metoprolol has been adjusted for heart rate control. Last Holter monitor done 11/21/2024 for 3 days shows atrial fibrillation with average heart rate 89 beats per minute. She has been on Eliquis for anticoagulation and she is tolerating it well. Labs 01/01/2025 showed hematocrit 36.8, labs 01/18/2025 shows creatinine 0.93. Last echo 10/04/2024 shows EF 60-65%, mild LVH, possible early mild aortic stenosis, left atrium severely dilated and right atrium moderately dilated. Since she is asymptomatic and has atrial enlargement, will continue to pursue rate control. We may have difficulty maintaining rhythm control with her enlarged atrial sizes. Continue metoprolol tartrate 50 mg in the a.m. and 25 mg in the p.m.. Continue Eliquis 5 mg b.i.d.. Cardiology follow-up 3-4 months, sooner if needed to reassess for symptoms. (2) Hypertension, essential: Code(s): I10 - Essential (primary) hypertension Category: Medical Plan: Blood pressure goal less than 130/80. Well controlled at this time. No med changes made. (3) SOULEYMANE (obstructive sleep apnea): Comment: PATIENT HAS PAST HISTORY OF OBSTRUCTIVE SLEEP APNEA AND STOPPED USING THE CPAP ABOUT 6 YEARS AGO. NOW SHE IS BACK ON CPAP USAGE. SHE IS VERY COMPLIANT AND SLEEPS WELL. Code(s): G47.33 - Obstructive sleep apnea (adult) (pediatric) Category: Medical Plan: She reports compliance with CPAP. Plan We discussed the current management of atrial fibrillation, including the use of metoprolol and a blood thinner. The potential for rhythm control with amiodarone and cardioversion was considered, but given the patient's stability, we decided to monitor the situation. The patient was advised to continue her current lifestyle and exercise routine, with a follow-up scheduled in three months. Patient Instructions: - Continue taking metoprolol and blood thinner as prescribed. - Maintain regular exercise routine at the gym. - Monitor for any new or worsening symptoms such as palpitations or shortness of breath. - Follow up in three months or sooner if symptoms change. Patient was informed and verbally consented to the use of an ambient scribe for clinic note documentation during this visit. Visit time spent on chart review, interview, assessment, orders, documentation. Coding Level of Care Code Est Pt Level 4 (82314) Complex EM visit Add On G2211 Diagnoses Paroxysmal atrial fibrillation I48.0 Atrial fibrillation type: paroxysmal Hypertension, essential I10 SOULEYMANE (obstructive sleep apnea) G47.33 CPT Codes EKG - CPT: 97882-[id number], Complete ([id number]) Time Spent (min) 30
[2025-01-22 09:21] VITALS: BP 120/74; PULSE 65; BMI 33.0
== END 2025-01-22 10:04 | disposition home or self-care (01) ==
LOC: HO.HCS 08:58
PROVIDERS: PCP Internal Medicine; Visit Provider Nurse Practitioner Family
DX: I48.0 Paroxysmal atrial fibrillation (principal); I10 Essential (primary) hypertension; G47.33 Obstructive sleep apnea (adult) (pediatric)
CPT/HCPCS: 93010; 99214; G2211

== ENCOUNTER → 2025-01-22 08:57 | Outpatient (BNVA) | payer MEDICARE, MEDICAID, SELFPAY | PROVIDERS: PCP Internal Medicine; Visit Provider Nurse Practitioner Family | DX: I48.0 Paroxysmal atrial fibrillation (principal); I10 Essential (primary) hypertension; G47.33 Obstructive sleep apnea (adult) (pediatric); Z99.89 Dependence on other enabling machines and devices | CPT/HCPCS: 93005; 99212 ==

== ENCOUNTER 2025-01-24 09:28 | Outpatient (AMB) | payer MEDICARE, MEDICAID, SELFPAY ==
--- NOTE | 2025-01-24 09:45 | HO.NEPHOV_ITS ---
Vital Signs 01/24/25 09:49 Height 4 ft 10 in Weight 159 lb 2 oz BMI 33.3 BP 110/62 Blood Pressure Location Rt brachial Position Sitting Pulse 64 Pulse Source Pulse Oximeter Pulse Oximetry (%) 98 Oxygen Delivery Method Room Air Intake Visit Reasons: 3 MO FU-Conf Prosthodontist/Educator Required: No Accompanied by: Self / Same As Patient Allergies sucralfate (Carafate) Allergy (Intermediate, Verified 01/24/25 09:49) hives NSAIDS (Non-Steroidal Anti-Inflamma Adverse Reaction (Intermediate, Verified 01/24/25 09:49) cannot take due to gastric bypass history HPI Comments Details: 78-year-old female with hypertension, peripheral vascular disease as well as CKD was seen in follow up today.Her last ECHO showed normal LV ejection fraction of 65-70% with severe biatrial enlargement with severe dilated right ventricle with preserved contractility . Her RV systolic pressure was normal. She had ANIYA was thought to be due to acute tubular injury from septic shock. Her serum creatinine plateaued at that time around 5.7. She did not need any renal replacement during her hospital stay. She feels improved and her serum creatinine now is 0.93 COUNT INCLUDES THE [facility] Medical History Hospital discharge follow-up Sepsis with acute renal failure and septic shock Streptococcal bacteremia Bacteremia due to Staphylococcus aureus MSSA bacteremia Atrial fibrillation with rapid ventricular response Atrial fibrillation CKD stage 3a, GFR 45-59 ml/min Osteoporosis Acute kidney injury superimposed on CKD Thoracolumbar back pain Decreased GFR ANIYA (acute kidney injury) Self-care deficit in patient living alone Chronic wound Seroma of musculoskeletal structure after musculoskeletal system procedure New onset a-fib History of septic shock Unspecified open wound, right hip, initial encounter Sleep disorder Abnormal skin growth Tubular adenoma of colon Ex-smoker Mitral annular calcification Aortic valve calcification Stasis edema of both lower extremities Family history of colon cancer Nail fungus Nocturnal hypoxemia Right bundle branch block Premature atrial contractions Hip pain, right Soft tissue infection Sepsis Septic shock Acute hypotension Oropharyngeal dysphagia Post-COVID chronic dyspnea Chronic GERD Peripheral vascular disease SOULEYMANE (obstructive sleep apnea) Wound, open, hip or thigh with complication Encounter for general adult medical examination with abnormal findings Preoperative cardiovascular examination Change in bowel movement Traumatic seroma of right thigh Postprocedural seroma of skin and subcutaneous tissue following other procedure Open wound of right hip and thigh Right rib fracture Menopause Pain management Pain management contract agreement Open wound of right lower leg with complication Shortness of breath Cough Edema Influenza A H1N1 infection Cellulitis of right leg Varicose veins of right lower extremity with inflammation Enterococcus faecalis infection Abscess Hip pain, right Obesity Lymphedema Morbid obesity due to excess calories Pre-op evaluation Colon cancer screening Medicare annual wellness visit, subsequent Family history of anesthesia complication Back pain Arthritis Renal calculi Post-influenza syndrome Tremor Peripheral vascular disease Right bundle branch block (RBBB) Aortic valve calcification Mitral annular calcification COPD (chronic obstructive pulmonary disease) Restrictive lung disease Depression, major, recurrent Hypertension, essential Surgical History S/P total right hip arthroplasty History of excision of lesion (10/20/23) History of total hip arthroplasty S/P gastric bypass History of surgery on lower extremity (01/25/23) History of surgery H/O colonoscopy History of cataract extraction History of bilateral tubal ligation History of tonsillectomy Family History Father No problems noted. Mother Alzheimer's disease Maternal Grandmother Cancer Maternal Grandfather No problems noted. Paternal Grandfather No problems noted. Paternal Grandmother No problems noted. Maternal Aunt Cancer Sister Colon cancer Son No problems noted. Daughter No problems noted. Social History Household Members: None Housing: Other Housing Other:: Mobile home Are you a primary animal care provider to a significant other at home: No Do you presently have visiting nurse or other home services: Yes (Wound Care) Alcohol intake: former Patient Tobacco Use Status: Former Tobacco user Tobacco use type: Cigarette Years Smoked: 40 e-Cigarette/Vaping Use: Former Use Second Hand Smoke Exposure: No Advance Directives Date on File: 03/13/15 service: No Current occupational status: retired and other Current occupation: right handed Cognitive needs: No Hearing needs: No Vision needs: No Female Reproductive History Menstrual Age of Menarche: 13 Review of Systems Const All systems reviewed & are unremarkable except as noted in HPI and below Physical Exam Vital Signs: Last Vital Signs Pulse 64 01/24/25 09:49 BP 110/62 01/24/25 09:49 Pulse Ox 98 01/24/25 09:49 Oxygen Delivery Method Room Air 01/24/25 09:49 BMI result Body Mass Index 33.3 Const General: comfortable and no acute distress Orientation/consciousness: patient oriented x3 HEENT Head: Yes normocephalic Mouth: Normal oral and palatal mucosa present Eyes EOM: EOMs intact bilaterally Neck Neck: Yes supple Resp Auscultation: clear to auscultation bilaterally Cardio Jugular venous distension: no JVD Rate: regular rate GI Palpation (GI): Soft to palpation Auscultation: normal bowel sounds General: Yes no CVA tenderness Back/Spine/Pelvis Back: no CVA tenderness Skin General skin exam: no rashes or lesions noted Neuro General: patient oriented x3 and moves all extremities Extrem General: Yes no pedal edema Results Reviewed Nephrology Results: Hgb, (12.0-16.0) 11.8 g/dl L 01/01/25 WBC, (4.8-10.8) 5.8 X10*3/uL 01/01/25 Plt Count, (160-400) 199 X10*3/uL 01/01/25 Sodium, (135-145) 140 mmol/L 01/18/25 Potassium, (3.3-5.1) 3.9 mmol/L Δ 01/18/25 Chloride, (96-108) 107 mmol/L 01/18/25 Carbon Dioxide, (22-29) 24 mmol/L 01/18/25 BUN, (9-16) 28 mg/dL H 01/18/25 Creatinine, (0.5-1.4) 0.93 mg/dL 01/18/25 Calcium, (8.4-10.2) 8.5 mg/dL Δ 01/18/25 Urine Creatinine 28.27 mg/dL 01/18/25 Protein/Creatinin Ratio TNP 01/18/25 Assessment & Plan Assessment & Plan (1) Hypertension: Code(s): I10 - Essential (primary) hypertension Category: Medical Qualifiers: Hypertension type: primary hypertension Qualified Code(s): I10 - Essential (primary) hypertension Plan ANIYA due to compromise in renal perfusion with resultant tubular injury- resolved No hydronephrosis by imaging. Hemodynamics better/ stable; Continue to hold HCTZ Hemodynamics stable; C/W current management for now No medication changes made today;F/U labs ordered Answered all questions. F/U given Orders: Orders Blood Urea Nitrogen 8 Months I10 - Essential (primary) hypertension Creatinine 8 Months I10 - Essential (primary) hypertension Electrolytes 8 Months I10 - Essential (primary) hypertension Protein Creatinine Ratio, Ur 8 Months I10 - Essential (primary) hypertension Coding Level of Care Code Est Pt Level 4 (62311) Diagnoses Primary hypertension I10 Hypertension type: primary hypertension
[2025-01-24 09:49] VITALS: BP 110/62; PULSE 64; O2SAT 98; BMI 33.3
== END 2025-01-24 10:07 | disposition home or self-care (01) ==
LOC: HO.HKA 09:29
PROVIDERS: PCP Internal Medicine; Visit Provider Internal Medicine Nephrology
DX: I10 Essential (primary) hypertension (principal)
CPT/HCPCS: 99214

== ENCOUNTER → 2025-01-24 09:28 | Outpatient (BNVA) | payer MEDICARE, MEDICAID, SELFPAY | PROVIDERS: PCP Internal Medicine; Visit Provider Internal Medicine Nephrology | DX: I10 Essential (primary) hypertension (principal) | CPT/HCPCS: 99212 ==

== ENCOUNTER 2025-02-23 07:46 | Outpatient (AMB) | payer MEDICARE, MEDICAID, SELFPAY ==
--- OUTSIDE RECORDS SUMMARY | 2025-02-23 07:49 | XMS_ITS | Data Portability ---
Author Organization [place] - Replaced by [facility] Address [address] [place] [address] Care Team Providers Care Boarding Specialist Name Role Phone STEPHANIE MARIE Primary Care Provider [phone] [facility] OTHER [phone] Assessment Encounter Date Assessment Date Assessment LastModified [...] be 10+ hours, this was [facility]. Exam: Vitals: VSS and afebrile Constitutional: 75 [...] scheduled Time On Scene with Patient: 00:42:25 [email or web address] Not available 05/07/2022 10:35:29 07/04/2022 07/04/2022 Brief [...] after care of this patient according to [facility]'s infection prevention protocols. [email or web address] Not available 07/04/2022 12:44:13 10/06/2022 10/06/2022 Brief [...] to patient. All questions answered. wound care [phone] - wound care states that they have no apts sooner than but will place pt on cancellation list [email or web address] Not available 10/06/2022 12:38:07 Plan of Treatment Reminders Order Date Submit Date Provider Last Modified By Organization Details Last Modified Time Details Appointments None recorded. Lab rapid SARS CoV 2 Ag, QL IA, respiratory specimen 2022 023 [email or web address] 5 [facility], [address] [place] [address], [address], 12:38:31 Referral None recorded. Procedures None recorded. Surgeries None recorded. Imaging XR, pelvis, 3 or more view - rule out osteomyelit is. tunneling wound over prosthetic hip joint 2022 023 [facility] [address], [place], [address], 3 11:01:28 XR, chest, 2 view 2021 022 [facility] [address], [place], [address], 2 11:58:06 Medication Orders doxycycline hyclate 100 mg capsule 2022 023 [facility]acy #[id number], [address] [place], [address], 3 12:35:07 albuterol sulfate concentrate 2.5 mg/0.5 mL solution for nebulizatio n 2022 023 [email or web address] [facility]/Pharmacy #0693, [address] [place], [address], 3 12:38:23 ipratropium bromide 0.02 % solution for inhalation 2022 023 [email or web address] 5 [facility]/Pharmacy #0693, [address] [place], [address], 3 12:38:34 prednisone 20 mg tablet 2022 023 [facility], [address] [place], [address], 3 12:02:14 prednisone 10 mg tablet 2022 023 [email or web address] [facility]/Pharmacy #0693, [address] [place], [address], 3 12:02:10 amoxicillin 875 mg-potassiu m clavulanate 125 mg tablet 2021 022 [email or web address] 5 [facility]/Pharmacy #0693, [address] [place], [address], 3 11:35:26 azithromyci n 250 mg tablet 2021 022 [email or web address] 5 [facility]/Pharmacy #0693, [address] [place], [address], 3 11:35:33 albuterol sulfate concentrate 2.5 mg/0.5 mL solution for nebulizatio n [address]/Pharmacy #0693, [address] [place], [address], 2 10:12:45 ipratropium bromide 0.02 % solution for inhalation [address]/Pharmacy #0693, [address] [place], [address], 2 10:12:42 nystatin 100,000 unit/gram topical cream [address]/Pharmacy #0693, [address] [place], [address], 2 09:43:56 cephalexin 500 mg capsule 2021 022 [email or web address] 5 [facility]/Pharmacy #0693, [address] [place], [address], 3 11:35:49 cephalexin 500 mg capsule 2021 022 [email or web address] 5 [facility]/Pharmacy #0693, [address] [place], [address], 3 11:35:49 Patient TargetsNo targets recorded. Patient Instructions Encounter Date Encounter Id Patient Instructions Last Modified By Organization Details Last Modified Time 01/03/2022 [id number] candidiasis: car e instructions [email or web address] Not available [...] pain. [email or web address] Not available 01/03/2022 13:03:10 05/07/2022 [id number] start mucinex as directed to help thin mucous drink plenty of fluids continue humidifier/steam rest continue albuterol inhaler four times per day for cough/breathing can use peppermints for cough can use honey for cough *[facility] will call to schedule chest xray. Should be complete within the next 24hrs *[facility] will follow up on Wednesday for recheck Please get to the ER if you are feeling worse [email or web address] Not available 05/07/2022 10:16:40 10/06/2022 [id number] Thank you for yo ur visit with [facility] today. You were seen today for [...] in your condition between 8am-10pm, please call [facility] at [phone] to help navigate your care. [email or web address] Not available 10/06/2022 12:03:22 Reason for Referral None Reported. Results Created Date Observation Date Name Description Value Unit Range Abnormal Flag Note LastModifiedBy Organization Detail LastModifiedTime 07/04/19 23 07/04/2022 rapid SARS CoV 2 Ag, QL IA, respi rator y speci men Covid-19 (ref: neg) negati ve Not Available [facility] [address] [facility], [place], [address], 07/04/2022 11:44:48 07/04/19 23 07/04/2022 rapid SARS CoV 2 Ag, QL IA, respi rator y speci men Control Visual ized/V alid Not Available [facility] [address] [facility], [place], [address], 07/04/2022 11:44:48 07/04/19 23 07/04/2022 rapid SARS CoV 2 Ag, QL IA, respi rator y speci men Location [facility], [address], [place] [address], [id number] Not Available [facility] [address] [facility], [place], [address], 07/04/2022 11:44:48 05/08/20 22 05/08/2022 XR, chest [...] Leone M.D. 2021 11:53: 41 AM EST. [email or web address] [employer] [address], [place], [address], 08/06/2022 12:49:04 10/08/1910/07/2022 XR, pelvi s, 3 [...] NGUYEN M.D. 023 10:47: 33 AM EDT. [email or web address] [facility] [address], [place], [address], 10/07/2022 18:32:41 10/08/1910/07/2022 hip uni W or [...] NGUYEN M.D. 023 10:47: 33 AM EDT. [email or web address] [facility] [address], [place], [address], 10/07/2022 18:32:16 Result Notes Documentation Provider Name [...] AM EST. FADI NASCIMENTO [address], [place], [address], [place] [facility] 08/06/2022 12:49:04 Xr, Pelvis, [...] AM EDT. 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 FADI Young [address], [place], [address], [place] [facility] 10/04/2021 10:27:45 Gastric bypass for obesity completed FADI Young [address] [place], [address], [place] [facility] 10/04/2021 10:28:00 bilateral extraction of cataracts completed FADI Young [address], [place], [address], [place] [facility] 10/04/2021 10:28:07 biopsy of breast completed FADI Young [address], [place], [address], [place] [facility] 10/04/2021 10:28:14 tonsilectomy/a denoids completed FADI Young [address], [place], [address], [place] [facility] 10/04/2021 10:29:26 Imaging Results None recorded. Procedure Notes None recorded. Medical Equipment None Reported. Allergies Allergen ID Allergen Name Allergen Category Reaction Reaction Severity Criticality Documentation Date Start Date Code Code System Note Provider Name and Address Organization Details Recorded Time [id number] Non-stero idal anti-infl ammatory agent (substanc e) medicatio n Not available Not available Not available 10/04/2021 56505 5008 SNOMED FADI Santiago [address] [place], [address], [place] [facility] 2 10:52:20 [id number] sucralfat e medicatio n Not available Not available Not available 10/06/2022 [id number] RxNorm Hollie Jiang NP [address] [place], [address], [place] [facility] 3 12:01:45 [...] % 60 /min 108/62 mm[Hg] Not Available [facility] 10:29:44 Date Recorded Oxygen saturation Oxygen saturation in Arterial blood by Pulse oximetry Body temperature Respiratory rate Heart rate Systolic And Diastolic Provider Name and Address Organization Details Last Updated DateTime 3 97 % 97 % 98.2 [degF] 18 /min 65 /min 124/68 mm[Hg] Not Available [facility] 3 12:06:44 Date Recorded Body temperature Oxygen saturation Oxygen saturation in Arterial blood by Pulse oximetry Respiratory rate Heart rate Systolic And Diastolic Provider Name and Address Organization Details Last Updated DateTime 2 98.3 [degF] 98 % 98 % 16 /min 82 /min 126/74 mm[Hg] Not Available [facility] 2 12:32:06 Date Recorded Respiratory rate Provider Name a wi Address Organization Details Last Updated DateTime 05/07/2022 20 /min FADI NASCIMENTO [address] [place], [address], [place] [facility] 05/07/2022 10:29:35 Date Recorded [...] % 96 % 110/72 mm[Hg] Not Available [facility] 2 09:48:07 Social History Question Answer Notes LastModified by Organizat ion Details LastModified Time Tobacco Smoking Status Former Smoker FADI Young [address], [place], [address], [place] [facility] 10/04/2021 10:29:06 Do You Have An Advance Directive? Yes [email or web address] Information not available 10/06/2022 What Is Your Code Status? Full Code [email or web address] Information not available 10/06/2022 Within The Past 12 Months, Has It Happened That The Food You Bought Just Didn't Last And You Didn't Have Money To Get More. Never True Information not available 10/06/2022 Within The Past 12 Months, Have You Worried That Your Food Would Run Out Before You Got Money To Buy More. Never True Information not available 10/06/2022 Fall Risk: Do You Feel Unsteady When Standing Or Walking? No [email or web address] Information not available 10/06/2022 Excessive Alcohol Or Drug Use No Information not available 10/06/2022 Does This Patient Have A PCP? Yes Information not available 10/06/2022 ADL: Do You Need Help With Daily Activities Such As Bathing, Preparing Meals, Dressing, Or Cleaning? No [email or web address] Information not available 10/06/2022 What Is Your Current Pack Years? 10-19packye ars [email or web address] Information not available 10/06/2022 Sex: Unknown Functional [...] by Organization Details LastModified Time Sister Malignant neoplasm of colon [email or web address] Not available 2021 10:28:51 Medical History Condition Response Diabetes N Coronary Artery Disease N CHF N Parkinson's Disease N Cancer N Stroke N Dementia N Hypothyroidism N Asthma N COPD N Depression Y High Cholesterol N Rheumatoid Arthritis N Pulmonary Embolism N Hypertension Y Osteoporosis N A-fib N Kidney Disease N Gynecological HistoryNo gynecological history recorded. Obstetrics History GPAL:G 0 P 0 0 0 0 Past Encounters Encounter ID Performer Location Encounter Start Date Encounter Closed Date Diagnosis/Indication Diagnosis SNOMED-CT Code Diagnosis ICD10 Code Diagnosis IMO Codes Diagnosis Note [id number] FADI Arevlao [facility] - [address] [place] [address] 10/04/2021 09:57:17 10/09/2021 09:37:20 Wound cellulitis 897163093 L03.90 [id number] ASIF LOVELL NP [facility] [address] [place] [address] 01/03/2022 12:26:14 01/05/2022 09:24:30 Candidal intertrigo 639743427 B37.2 [id number] FADI NASCIMENTO [facility] [address] [place] [address] 05/07/2022 09:43:13 05/10/2022 20:18:20 Community acquired pneumonia 724145408 J18.9 Status of condition: Acute. Testing/Re sults:CXR [...] up precaution s Bilateral lower limb edema 103603803 R60.0 Status of condition: Chronic. Testing/Re sults:none Discussion :ddx includes CHF, PVD, DVT Plan, Medication Management & Follow-up recommenda tions:Cont inue eval and work up with pcp [id number] FADI Clemens [facility] [address] [place] [address] 07/04/2022 11:34:05 07/06/2022 08:32:25 Acute bronchitis 54673426 J20.9 Essential hypertension 94449696 I10 [id number] Hollie Jiang NP [facility] [address] [place] [address] 10/06/2022 11:52:31 10/08/2022 18:44:12 Wound cellulitis 038777074 L03.90 Status of condition: Exacerbati on/Acute on [...] Hall Member ID Guarantor Name 01/03/2022 1 [facility] (MEDICARE REPLACEMENT/A DVANTAGE - PPO) [id number] [facility] [id number] [facility] 10/09/2022 1 [facility] (MEDICARE REPLACEMENT/A DVANTAGE - PPO) [id number] Mayra Rodriguez [id number] [facility] 08/20/2020 1 *SELF PAY* Mayra Rodriguez [id number] [facility] 10/09/2021 1 [facility] (MEDICARE REPLACEMENT/A DVANTAGE - HMO) [id number] Mayra Rodriguez [id number] [facility] 12/17/2022 2 [place] [facility] Mayra Gatesman [id number] [facility] 01/03/2022 1 [facility] (MEDICARE REPLACEMENT/A DVANTAGE - HMO) [id number] Mayra Rodriguez [id number] [facility] 10/09/2021 1 [facility] (MEDICARE REPLACEMENT/A DVANTAGE - HMO) [facility] Mayra Rodriguez [id number] [facility] 10/09/2021 1 [facility] (MEDICARE REPLACEMENT/A DVANTAGE - HMO) [facility] Mayra Rodriguez [id number] Mayra Rodriguez Notes Date Note Type Note Provider Name and Address Organization Details Recorded Time 10/04/2021 text/html 75 YO F new to and new to providerShe is being seen [...] today.Of note does reports she went to [facility] ER last night to get this looked at and she left after the wait was going to be 10+ hours, this was [facility]. FADI Young [address], [place], [address], [place] [facility] 10/04/2021 11:19:03 01/03/2022 text/html [...] well. ASIF LOVELL NP [address], [place], [address], [place] [facility] 01/03/2022 13:03:27 05/07/2022 text/html 76 yo female with cough, congestion, fatigue, shortness of breath, and [...] showed RBBB. FADI NASCIMENTO [address], [place], [address], [place] [facility] 05/07/2022 10:38:42 07/04/2022 text/html [...] does not feel it has been helping. Madeleine Pitts, FADI [address], [place], [address], [place] [facility] 07/04/2022 12:45:03 10/06/2022 text/html R hip replacement 7 years ago and at that time [...] edema. Hollie Jiang NP [address], [place], [address], [place] [facility] 10/06/2022 12:38:29 OBGyn Episode No OBEpisode recorded.
[2025-02-23 07:58] VITALS: BP 120/78; PULSE 100; RESP 17; TEMP 36.5; O2SAT 100; BMI 33.2
--- NOTE | 2025-02-23 07:58 | A.OFFPC_ITS ---
Vital Signs 02/23/25 07:58 Height 4 ft 10 in Weight 159 lb BMI 33.2 BP 120/78 Blood Pressure Location Lt brachial Position Sitting Respiration 17 Pulse 100 Pulse Source Pulse Oximeter Temp 97.7 F Temp Source Oral Pulse Oximetry (%) 100 Oxygen Delivery Method Room Air Intake Visit Reasons: PE - see comments Allergies sucralfate (Carafate) Allergy (Intermediate, Verified 02/23/25 07:58) hives NSAIDS (Non-Steroidal Anti-Inflamma Adverse Reaction (Intermediate, Verified 02/23/25 07:58) cannot take due to gastric bypass history Medication List - Last Reconciled 02/23/25 by Kayla Smith MD acetaminophen 650 mg PO Q6H PRN alendronate (Fosamax) 70 mg PO [place] 90 days apixaban (Eliquis) 5 mg PO BID ascorbic acid (vitamin C) 200 mg PO DAILY bisacodyl 10 mg PO BEDTIME cholecalciferol (vitamin D3) 50 mcg PO DAILY dexlansoprazole (Dexilant) 60 mg PO DAILY 30 days escitalopram oxalate (Lexapro) 20 mg PO DAILY ferrous sulfate (Feosol) 325 mg PO BEDTIME iron,[id number]-NB-bjpbfbcw-min 30 mg iron- 800 mcg (Opurity Multivitamin) 1 tab PO DAILY lorazepam 0.25 mg PO DAILY PRN metoprolol tartrate 50 mg PO BID 90 days Motegrity (prucalopride) 2 mg PO DAILY NS primidone 50 mg PO BEDTIME ropinirole 0.25 mg PO DAILY Tobacco use date assessed: 02/23/25 Fall risk assessment: No Falls in past year Last assessed Fall Risk: 02/23/25 Dental Screening Dental Screen Date: 10/20/24 HPI PE - see comments HPI Details History of Present Illness The patient is a 79-year-old female presenting with a six-month follow-up and physical examination. Atrial Fibrillation: - The patient reports persistent Atrial Fibrillation after an episode of septic shock. - No current symptoms such as palpitatio ns or dyspnea reported. - Monitored by her healthcare team; card ioversion not deemed necessary at present. Significant Obesity: - History of significant weight loss; pr eviously weighed 305 pounds, now maintaining at 159 pounds. - Patient has been exercising regularly for the past month, attending the gym three to four times weekly. - Reports maintaining current weight mahnaz pite ongoing stress and personal challenges. Major Depressive Disorder: - Patient is currently under treatment w patti Lexaprjohnny. - Reports stress related to the recent p assing of her son and her daughter's hospitalization due to alcoholism. Osteoporosis: - Being managed with Fosamax and Vitamin D supplementation. Restless Leg Syndrome: - Managed with Ropinirole; effectiveness and compliance not explicitly discussed. Gastroesophageal Reflux Disease: - Currently taking Dexilant for manageme nt. Essential Tremor: - Managed with Primidone; current status not detailed. Medical History: - Atrial Fibrillation - Past Septic Shock resolved - Major Depressive Disorder - Significant weight loss from obesity - Osteoporosis - Gastroesophageal Reflux Disease - Restless Leg Syndrome - Essential Tremor Social History: - Reports loss of 100 pounds through exe rcise and diet changes. - Exercises regularly, attending the gym three to four days a week. - Experiences notable stress due to the recent of her son and her daughter's ongoing maloney with alcoholism. - Uses a cane for balance but remains ac tive with gym activities like treadmill and rowing. Family History: - Son: ; history of heart condit ion and diabetes. - Daughter: Hospitalized due to alcoholi sm. - Sister: of colon cancer, possibly linked to Merino syndrome. Health Maintenance - Mammogram performed in August; next due soon. - Colonoscopy is pending discussion due to prior septic shock and anticoagulant medication. - Flu vaccine discussed but declined by the patient. Patient Instructions - Continue current medication regimen as prescribed. - Maintain current exercise routine and weight management efforts. - Discuss colonoscopy and Merino syndrome discussion with Gastro upcoming appointment - Monitor any symptoms related to Atrial Fibrillation and report changes. Continue follow up with the Cardiology - Continue to manage stress and support mental health. No medications from PCP office Review of Systems - General: No fever no chills - Neurological: No headaches no dizzin ess - Ear nose throat: No sore throat no hearing difficulty no ear pain - Cardiovascular: No syncope, no chest pain, no palpitations - Gastrointestinal: No nausea vomiting or diarrhea - Endocrine: No polyuria polydipsia no heat intolerance - Genitourinary: No dysuria - Skin: No new complaints Physical Exam General: Cooperative, healthy appearing, comfortable, no acute distress Orientation: Patient oriented x3 Head: Normal to inspection Ears: Within normal limit visually Nose: Normal external nose present Face and sinus: Normal facial exam Eyes: Appearance normal, extraocular movement intact pupils reactive Neck: Normal visual inspection and supple Respiratory: Normal respiratory effort and able to speak in complete sentences. Clear to auscultation, no stridor Cardiovascular: S1 and S2 irregularly irregular Breast exam benign GI: Normal to inspection. Soft to palpation and nontender. Small ventral Hernia present Skin: Turgor normal, no acute findings Neuro: Patient oriented x3, motor intact, balance intact uses cane for ambulation Extremities: Normal to inspection . [facility] Medical History (Updated 02/23/25 @ 10:31 by Kayla Smith MD) Encounter for general adult medical examination with abnormal findings Hospital discharge follow-up Sepsis with acute renal failure and septic shock Streptococcal bacteremia Bacteremia due to Staphylococcus aureus MSSA bacteremia Atrial fibrillation with rapid ventricular response Atrial fibrillation CKD stage 3a, GFR 45-59 ml/min Osteoporosis Acute kidney injury superimposed on CKD Thoracolumbar back pain Decreased GFR ANIYA (acute kidney injury) Self-care deficit in patient living alone Chronic wound Seroma of musculoskeletal structure after musculoskeletal system procedure New onset a-fib History of septic shock Unspecified open wound, right hip, initial encounter Sleep disorder Abnormal skin growth Tubular adenoma of colon Ex-smoker Mitral annular calcification Aortic valve calcification Stasis edema of both lower extremities Family history of colon cancer Nail fungus Nocturnal hypoxemia Right bundle branch block Premature atrial contractions Hip pain, right Soft tissue infection Sepsis Septic shock Acute hypotension Oropharyngeal dysphagia Post-COVID chronic dyspnea Chronic GERD Peripheral vascular disease SOULEYMANE (obstructive sleep apnea) Wound, open, hip or thigh with complication Preoperative cardiovascular examination Change in bowel movement Traumatic seroma of right thigh Postprocedural seroma of skin and subcutaneous tissue following other procedure Open wound of right hip and thigh Right rib fracture Menopause Pain management Pain management contract agreement Open wound of right lower leg with complication Shortness of breath Cough Edema Influenza A H1N1 infection Cellulitis of right leg Varicose veins of right lower extremity with inflammation Enterococcus faecalis infection Abscess Hip pain, right Obesity Lymphedema Morbid obesity due to excess calories Pre-op evaluation Colon cancer screening Medicare annual wellness visit, subsequent Family history of anesthesia complication Back pain Arthritis Renal calculi Post-influenza syndrome Tremor Peripheral vascular disease Right bundle branch block (RBBB) Aortic valve calcification Mitral annular calcification COPD (chronic obstructive pulmonary disease) Restrictive lung disease Depression, major, recurrent Hypertension, essential Surgical History S/P total right hip arthroplasty History of excision of lesion (10/20/23) History of total hip arthroplasty S/P gastric bypass History of surgery on lower extremity (01/25/23) History of surgery H/O colonoscopy History of cataract extraction History of bilateral tubal ligation History of tonsillectomy Family History Father No problems noted. Mother Alzheimer's disease Maternal Grandmother Cancer Maternal Grandfather No problems noted. Paternal Grandfather No problems noted. Paternal Grandmother No problems noted. Maternal Aunt Cancer Sister Colon cancer Son No problems noted. Daughter No problems noted. Social History Household Members: None Housing: Other Housing Other:: Mobile home Are you a primary adult day care worker to a significant other at home: No Do you presently have visiting nurse or other home services: Yes (Wound Care) Alcohol intake: former Patient Tobacco Use Status: Former Tobacco user Tobacco use type: Cigarette Years Smoked: 40 e-Cigarette/Vaping Use: Former Use Second Hand Smoke Exposure: No Advance Directives Date on File: 03/13/15 service: No Current occupational status: retired and other Current occupation: right handed Cognitive needs: No Hearing needs: No Vision needs: No Female Reproductive History Menstrual Age of Menarche: 13 Questionnaire PHQ-9 Over the last 2 weeks, how often have you been bothered by any of the following problems? 1. Little interest or pleasure in doing things: not at all 2. Feeling down, depressed, or hopeless: not at all 3. Trouble falling or staying asleep, or sleeping too much: more than half the days 4. Feeling tired or having little energy: several days 5. Poor appetite or overeating: several days 6. Feeling bad about yourself - or that you are a failure or have let yourself or your family down: not at all 7. Trouble concentrating on things, such as reading the newspaper or watching television: not at all 8. Moving or speaking so slowly that other people could have noticed. Or the opposite - being so fidgety or restless that you have been moving around a lot more than usual: not at all 9. Thoughts that you would be better off or of hurting yourself in some way: not at all Total score: 4 Depression Screening Interpretation: Negative Depression Screening Done: Yes [id number] - PHQ-9 Billing: Yes Source: Developed by Drs. Francisco Mendoza, Edyta Moctezuma, Kam Mills and colleagues, with an educational desi from [employer] Thrive Questionnaire Date Thrive assessed: 08/29/24 I am a: Patient What is your living situation today?: I have a steady place to live Within the past 12 months, did the food you bought not last and you didn't have the money to get more?: Sometimes True Within the past 12 months, did you worry whether your food would run out before you got money to buy more?: Sometimes True Do you have trouble paying for medicines?: No Do you have trouble getting transportation to medical appointments?: No Do you have trouble paying your heating and electricity bill?: Yes Do you have trouble taking care of your child, family member or friend?: No Do you have trouble with day-to-day activities such as bathing, preparing meals, shopping, managing finances, etc.?: No Are you currently unemployed and looking for a job?: No Are you interested in more education?: No Please select the resources that you would like help with: None Currently or been in a relationship where the following occur: No concerns reported THRIVE Score: 3 AUDIT C Alcohol Use Questionnaire (AUDIT-C) 1. How often do you have a drink containing alcohol?: Never 3. How often do you have six or more drinks on one occasion?: Never Total Score: 0 GERMÁN-7 AMB Questionnaire GERMÁN-7 Date GERMÁN - 7 assessed: 09/08/24 Source: Developed by Drs. Francisco Mendoza, Edyta Moctezuma, Kam Mills and colleagues, with an educational desi from [employer] Physical exam (Primary Care) Vital Signs: Last Vital Signs Temp 97.7 F 02/23/25 07:58 Pulse 100 02/23/25 07:58 Resp 17 02/23/25 07:58 BP 120/78 02/23/25 07:58 Pulse Ox 100 02/23/25 07:58 Oxygen Delivery Method Room Air 02/23/25 07:58 BMI result Body Mass Index 33.2 Tobacco/Smoking Status: Tobacco use Status Tobacco use date assessed 02/23/25 02/23/25 08:04 Patient Tobacco Use Status Former Tobacco user 02/23/25 08:00 Tobacco use type Cigarette 02/23/25 08:00 e-Cigarette/Vaping Use Former Use 02/23/25 08:00 PHQ-9: PHQ-9 Score PHQ-9: Total score 4 02/23/25 08:29 Depression Screening Interpretation: Negative Thrive Assessment: Date of Thrive Assessment Date Thrive assessed 08/29/24 02/23/25 08:00 Currently or been in a relationship where the following occur: No concerns reported Coding Level of Care Code Est Pt Level 3 (55037) Est Pt Prev Care >65y(18173) Diagnoses Encounter for general adult medical examination with abnormal findings Z00.01 Gastroesophageal reflux disease with esophagitis without hemorrhage K21.00 Esophagitis bleeding: without hemorrhage Paroxysmal atrial fibrillation I48.0 Atrial fibrillation type: paroxysmal Hypertension, essential I10 Recurrent major depressive disorder, in partial remission F33.41 Active/Remission status: in partial remission Risk for falls Z91.81 Lymphedema I89.0 Use of cane as ambulatory aid Z99.89 SOULEYMANE (obstructive sleep apnea) G47.33 Additional Codes PHQ-9 - 64381 - PHQ-9 Billing: Yes ([id number]) Assessment & Plan Assessment & Plan (1) Encounter for general adult medical examination with abnormal findings: Code(s): Z00.01 - Encounter for general adult medical examination with abnormal findings Category: Medical (2) GERD with esophagitis: Code(s): K21.00 - Gastro-esophageal reflux disease with esophagitis, without bleeding Category: Medical Qualifiers: Esophagitis bleeding: without hemorrhage Qualified Code(s): K21.00 - Gastro-esophageal reflux disease with esophagitis, without bleeding (3) Atrial fibrillation: Code(s): I48.91 - Unspecified atrial fibrillation Category: Medical Qualifiers: Atrial fibrillation type: paroxysmal Qualified Code(s): I48.0 - Paroxysmal atrial fibrillation (4) Hypertension, essential: Code(s): I10 - Essential (primary) hypertension Category: Medical (5) Depression, major, recurrent: Code(s): F33.9 - Major depressive disorder, recurrent, unspecified Category: Medical Qualifiers: Active/Remission status: in partial remission Qualified Code(s): F33.41 - Major depressive disorder, recurrent, in partial remission (6) Risk for falls: Code(s): Z91.81 - History of falling Category: Medical (7) Lymphedema: Code(s): I89.0 - Lymphedema, not elsewhere classified Category: Medical (8) Use of cane as ambulatory aid: Code(s): Z99.89 - Dependence on other enabling machines and devices Category: Medical (9) SOULEYMANE (obstructive sleep apnea): Comment: PATIENT HAS PAST HISTORY OF OBSTRUCTIVE SLEEP APNEA AND STOPPED USING THE CPAP ABOUT 6 YEARS AGO. NOW SHE IS BACK ON CPAP USAGE. SHE IS VERY COMPLIANT AND SLEEPS WELL. Code(s): G47.33 - Obstructive sleep apnea (adult) (pediatric) Category: Medical Plan Atrial Fibrillation: - The patient reports persistent Atrial Fibrillation after an episode of septic shock. - No current symptoms such as palpitations or dyspnea reported. - Monitored by her healthcare team; cardioversion not deemed necessary at present. Significant Obesity: - History of significant weight loss; previously weighed 305 pounds, now maintaining at 159 pounds. - Patient has been exercising regularly for the past month, attending the gym three to four times weekly. - Reports maintaining current weight despite ongoing stress and personal challenges. Major Depressive Disorder: - Patient is currently under treatment with Lexapro. - Reports stress related to the recent passing of her son and her daughter's hospitalization due to alcoholism. Osteoporosis: - Being managed with Fosamax and Vitamin D supplementation. Restless Leg Syndrome: - Managed with Ropinirole; effectiveness and compliance not explicitly discus sed. Gastroesophageal Reflux Disease: - Currently taking Dexilant for management. Essential Tremor: - Managed with Primidone; current status not detailed. Health Maintenance - Mammogram performed in August; next due soon. - Colonoscopy is pending discussion due to prior septic shock and anticoagulant medication. - Flu vaccine discussed but declined by the patient. Patient Instructions - Continue current medication regimen as prescribed. - Maintain current exercise routine and weight management efforts. - Discuss colonoscopy and Merino syndrome discussion with Gastro upcoming appointment - Monitor any symptoms related to Atrial Fibrillation and report changes. Continue follow up with the Cardiology - Continue to manage stress and support mental health. No medications from PCP office
== END 2025-02-23 08:24 | disposition home or self-care (01) ==
LOC: HO.HMCC 07:47
PROVIDERS: PCP Internal Medicine; Visit Provider Internal Medicine
DX: Z00.01 Encounter for general adult medical examination with abnormal findings (principal); K21.00 Gastro-esophageal reflux disease with esophagitis, without bleeding; I48.0 Paroxysmal atrial fibrillation; I10 Essential (primary) hypertension; F33.41 Major depressive disorder, recurrent, in partial remission; Z91.81 History of falling; I89.0 Lymphedema, not elsewhere classified; Z99.89 Dependence on other enabling machines and devices; G47.33 Obstructive sleep apnea (adult) (pediatric)

== ENCOUNTER → 2025-02-23 07:46 | Outpatient (BNVA) | payer MEDICARE, MEDICAID, SELFPAY | PROVIDERS: PCP Internal Medicine; Visit Provider Internal Medicine | DX: Z00.01 Encounter for general adult medical examination with abnormal findings (principal); E66.9 Obesity, unspecified; M81.0 Age-related osteoporosis without current pathological fracture; G25.81 Restless legs syndrome; G25.0 Essential tremor; K21.00 Gastro-esophageal reflux disease with esophagitis, without bleeding; I48.0 Paroxysmal atrial fibrillation; I10 Essential (primary) hypertension; F33.41 Major depressive disorder, recurrent, in partial remission; I89.0 Lymphedema, not elsewhere classified; G47.33 Obstructive sleep apnea (adult) (pediatric); Z99.89 Dependence on other enabling machines and devices; Z91.81 History of falling; Z68.33 Body mass index [BMI] 33.0-33.9, adult | CPT/HCPCS: 96127; 99397 ==

== ENCOUNTER 2025-02-27 10:17 | Outpatient (AMB) | payer MEDICARE, MEDICAID, SELFPAY ==
--- NOTE | 2025-02-27 10:28 | A.OFFVIS_ITS ---
Vital Signs 02/27/25 10:30 Height 4 ft 10 in Weight 158 lb BMI 33.0 BP 122/74 Blood Pressure Location Lt brachial Position Sitting Pulse 89 Intake Visit Reasons: cic Intake Note: Mayra presents to in office follow up of CIC. CC: Patient denies having any GI symptoms or concerns today. She states that she went to ER in August and September for hypotension and sepsis. She states that she is now doing well and started going to the gym and working out. Dairy Nutrition Specialist Required: No Accompanied by: Self / Same As Patient Allergies sucralfate (Carafate) Allergy (Intermediate, Verified 02/27/25 10:49) hives NSAIDS (Non-Steroidal Anti-Inflamma Adverse Reaction (Intermediate, Verified 02/27/25 10:49) cannot take due to gastric bypass history HPI HPI cic: Details: Assessment & Plan (1) Nausea: Code(s): R11.0 - Nausea Category: Medical (2) GERD with esophagitis: Code(s): K21.00 - Gastro-esophageal reflux disease with esophagitis, without bleeding Category: Medical (3) Constipation: Code(s): K59.00 - Constipation, unspecified Category: Medical Qualifiers: Constipation type: slow transit constipation Qualified Code(s): K59.01 - Slow transit constipation (4) Supraumbilical hernia: Comment: small, 16mm fat containing on 11/2024 Code(s): K43.9 - Ventral hernia without obstruction or gangrene Category: Medical Plan She is doing better now! She had severe staff septicemia and was hospitalized shortly after our last visit. 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 This is the likely source of her nausea, this has resolved. She is not on the lansoprazole, she is back on the omeprazole. She had a rash from carafate, maybe, but also could have been a septic rash. She was waiting for homecare/wound care during this period. She will be due for repeat colonoscopy in 08/2025, we will wait on this so that she can completely recover and discuss this later next year. ROV 6 mos. TODAYS VISIT [facility] Medical History (Updated 02/27/25 @ 10:40 by DELORES Pérez) Encounter for general adult medical examination with abnormal findings Abdominal wall bulge Hospital discharge follow-up Sepsis with acute renal failure and septic shock Streptococcal bacteremia Bacteremia due to Staphylococcus aureus MSSA bacteremia Atrial fibrillation with rapid ventricular response Atrial fibrillation CKD stage 3a, GFR 45-59 ml/min Osteoporosis Acute kidney injury superimposed on CKD Thoracolumbar back pain Decreased GFR ANIYA (acute kidney injury) Self-care deficit in patient living alone Chronic wound Seroma of musculoskeletal structure after musculoskeletal system procedure New onset a-fib History of septic shock Unspecified open wound, right hip, initial encounter Sleep disorder Abnormal skin growth Tubular adenoma of colon Ex-smoker Mitral annular calcification Aortic valve calcification Stasis edema of both lower extremities Family history of colon cancer Nail fungus Nocturnal hypoxemia Right bundle branch block Premature atrial contractions Hip pain, right Soft tissue infection Sepsis Septic shock Acute hypotension Oropharyngeal dysphagia Post-COVID chronic dyspnea Chronic GERD Peripheral vascular disease SOULEYMANE (obstructive sleep apnea) Wound, open, hip or thigh with complication Preoperative cardiovascular examination Change in bowel movement Traumatic seroma of right thigh Postprocedural seroma of skin and subcutaneous tissue following other procedure Open wound of right hip and thigh Right rib fracture Menopause Pain management Pain management contract agreement Open wound of right lower leg with complication Shortness of breath Cough Edema Influenza A H1N1 infection Cellulitis of right leg Varicose veins of right lower extremity with inflammation Enterococcus faecalis infection Abscess Hip pain, right Obesity Lymphedema Morbid obesity due to excess calories Pre-op evaluation Colon cancer screening Medicare annual wellness visit, subsequent Family history of anesthesia complication Back pain Arthritis Renal calculi Post-influenza syndrome Tremor Peripheral vascular disease Right bundle branch block (RBBB) Aortic valve calcification Mitral annular calcification COPD (chronic obstructive pulmonary disease) Restrictive lung disease Depression, major, recurrent Hypertension, essential Surgical History S/P total right hip arthroplasty History of excision of lesion (10/20/23) History of total hip arthroplasty S/P gastric bypass History of surgery on lower extremity (01/25/23) History of surgery H/O colonoscopy History of cataract extraction History of bilateral tubal ligation History of tonsillectomy Family History Father No problems noted. Mother Alzheimer's disease Maternal Grandmother Cancer Maternal Grandfather No problems noted. Paternal Grandfather No problems noted. Paternal Grandmother No problems noted. Maternal Aunt Cancer Sister Colon cancer Son No problems noted. Daughter No problems noted. Social History Household Members: None Housing: Other Housing Other:: Mobile home Are you a primary child care assistant to a significant other at home: No Do you presently have visiting nurse or other home services: Yes (Wound Care) Alcohol intake: former Patient Tobacco Use Status: Former Tobacco user Tobacco use type: Cigarette Years Smoked: 40 e-Cigarette/Vaping Use: Former Use Second Hand Smoke Exposure: No Advance Directives Date on File: 03/13/15 service: No Current occupational status: retired and other Current occupation: right handed Cognitive needs: No Hearing needs: No Vision needs: No Female Reproductive History Menstrual Age of Menarche: 13 Review of Systems Const Denies fatigue, Denies fever(s), Denies night sweats, Denies poor appetite and Denies weight loss ENT Reports Normal hearing present, Denies dental pain, Denies dysphagia, Denies hearing loss, Denies mouth pain, Denies odynophagia, Denies throat swelling, Denies tongue swelling and Reports other (Dentition adequate) Card Reports no additional complaints Resp Reports no additional complaints GI Details: Denies abdominal pain, Denies melena, Denies bloating, Denies hematochezia, Reports constipation, Denies GI cramping, Denies dysphagia, Denies excessive flatus, Denies early satiety, Reports heartburn, Denies diarrhea, Denies nausea, Denies odynophagia, Denies vomiting and Denies hematemesis Musc Reports abnormal gait, Reports back pain and Reports arthralgias Skin/Breast Denies pruritus, Denies lesions, Denies rash and Denies jaundice Neuro Reports Normal hearing present, Denies Abnormal speech present and Reports abnormal gait Endo Denies fatigue Aller/Immun Denies throat swelling and Denies tongue swelling Physical Exam Vital Signs: Last Vital Signs Pulse 89 02/27/25 10:30 BP 122/74 02/27/25 10:30 BMI result Body Mass Index 33.0 Const General: cooperative, no acute distress, well developed and well groomed Nutritional Appearance: well nourished and obese Orientation/consciousness: oriented to person, oriented to place and oriented to time Limitations: No language barrier and ambulation with cane HEENT Head: Yes normocephalic and Yes atraumatic Eyes General: appearance normal, both eyes and all related structures Pupils: Equal, round and reactive pupils present Neck Neck: Yes normal visual inspection and Yes no lymphadenopathy Thyroid: Thyroid normal Resp Effort & Inspection: normal respiratory effort and able to speak in complete sentences Auscultation: clear to auscultation bilaterally Cardio Rate: regular rate Rhythm: regular rhythm Heart sounds: Normal, physiologic split S2 sound present Peripheral pulses: radial pulses present and posterior tibial pulses present GI Inspection: No distended, Yes Abdominal panniculus present and Yes obesity Palpation (GI): Soft to palpation, nontender, no guarding, not rigid and No hepatosplenomegaly present Percussion: Yes normal to percussion Auscultation: normal bowel sounds Rectal Exam - Female: deferred Skin General skin exam: no rashes or lesions noted, turgor normal, skin not dry, no jaundice, No spider nevi and no striae Rashes: no rashes Nails: normal Neuro General: oriented to person, oriented to place and oriented to time Cranial nerves: Yes Equal, round and reactive pupils present and Yes Normal hearing present Speech: No Abnormal speech present Extrem General: Yes normal to inspection, No clubbing, No cyanosis and No edema Psych Appearance: grossly normal and well kempt Mental Status: mental status grossly normal Speech and movement: Normal speech and movement present Affect: normal affect Attitude: cooperative Thought process: Normal thought process present and not confabulating Thought content: Normal thought content present Insight: Good insight present (Psych) Judgement: Good judgement present (Psych) Assessment & Plan Assessment & Plan (1) Constipation: Code(s): K59.00 - Constipation, unspecified Category: Medical Qualifiers: Constipation type: slow transit constipation Qualified Code(s): K59.01 - Slow transit constipation (2) GERD with esophagitis: Code(s): K21.00 - Gastro-esophageal reflux disease with esophagitis, without bleeding Category: Medical Qualifiers: Esophagitis bleeding: without hemorrhage Qualified Code(s): K21.00 - Gastro-esophageal reflux disease with esophagitis, without bleeding Plan on the omeprazole. She will be due for repeat colonoscopy in 08/2025. - The patient is a 79-year-old female presenting with GERD. - GERD is effectively managed with dexlansoprazole. - Uses bisacodyl for constipation; effective at two tablets at bedtime. - Concerns regarding loss of insurance coverage for [employer], exploring alternatives like Linzess. - Successfully healed from a previous wound attributed to sepsis. - Family history reveals potential genetic conditions pertinent to gastrointestinal cancer, notably possible Merino syndrome. She asks about genetic testing but we do not perform it through this office as we do not have a qualified rfid analyst to offer counseling about what positive result findings may mean. I also do not know how this is covered in terms of insurance. She says she will ask her oncologist about this. Since her colonoscopy was in August of 2022 we will plan on ordering it after I see her at the next six-month visit. Return office visit in 6 months Medications: New linaclotide (Linzess) 290 mcg PO QAM 30 caps 3RF 30 days Refilled dexlansoprazole (Dexilant) 60 mg PO DAILY 30 caps 3RF 30 days K21.00 - Gastro- esophageal reflux disease with esophagitis, without bleeding Coding Level of Care Code Est Pt Level 3 (25544) Diagnoses Slow transit constipation K59.01 Constipation type: slow transit constipation Gastroesophageal reflux disease with esophagitis without hemorrhage K21.00 Esophagitis bleeding: without hemorrhage
[2025-02-27 10:30] VITALS: BP 122/74; PULSE 89; BMI 33.0
--- OUTSIDE RECORDS SUMMARY | 2025-02-27 12:09 | XMS_ITS | Data Portability ---
Author Organization [place] [facility] Address [address] [place] [id number] Care Team Providers Care Drain Cleaner Name Role Phone STEPHANIE MARIE Primary Care [...] to be 10+ hours, this was [facility] Exam: Vitals: VSS and afebrile Constitutional: 74 [...] scheduled Time On Scene with Patient: 00:42:25 [email or web address] Not available 05/07/2022 10:35:29 07/04/2022 07/04/2022 Brief [...] after care of this patient according to [facility]'s infection prevention protocols. [email or web address] Not available 07/04/2022 12:44:13 10/06/2022 10/06/2022 Brief [...] to patient. All questions answered. wound care [phone] - wound care states that they have no apts sooner than but will place pt on cancellation list Not available 10/06/2022 12:38:07 Plan of Treatment Reminders Order Date Submit Date Provider Last Modified By Organization Details Last Modified Time Details Appointments None recorded. Lab rapid SARS CoV 2 Ag, QL IA, respiratory specimen [email or web address] [facility], [address] [place] [address], [id number], 12:38:31 Referral None recorded. Procedures None recorded. Surgeries None recorded. Imaging XR, pelvis, 3 or more view - rule out osteomyelit is. tunneling wound over prosthetic hip joint 2022 023 [facility] [address], [place], [address], 3 11:01:28 XR, chest, 2 view 2021 022 [facility]), [address], [place], [address], 2 11:58:06 Medication Orders doxycycline hyclate 100 mg capsule 2022 023 [id number], [address] [place], [address], 3 12:35:07 albuterol sulfate concentrate 2.5 mg/0.5 mL solution for nebulizatio n [email or web address] [facility] #0693, [address] [place], [address], 3 12:38:23 ipratropium bromide 0.02 % solution for inhalation 2022 023 [email or web address] 5 [facility] #0693, [address] [place], [address], 3 12:38:34 prednisone 20 mg tablet 2022 023 [email or web address] [facility], [address] [place], [address], 3 12:02:14 prednisone 10 mg tablet 2022 023 [email or web address] [facility] #0693, [address] [place], [address], 3 12:02:10 amoxicillin 875 mg-potassiu m clavulanate 125 mg tablet 2021 022 [email or web address] 5 [facility] #0693, [address] [place], [address], 3 11:35:26 azithromyci n 250 mg tablet 2021 022 [email or web address] 5 [facility] #0693, [address] [place], [address], 3 11:35:33 albuterol sulfate concentrate 2.5 mg/0.5 mL solution for nebulizatio n [address]/Pharmacy #0693, [address] [place], [address], 2 10:12:45 ipratropium bromide 0.02 % solution for inhalation [address]/Pharmacy #0693, [address] [place], [address], 2 10:12:42 nystatin 100,000 unit/gram topical cream [address]/Pharmacy #0693, [address] [place], [address], 2 09:43:56 cephalexin 500 mg capsule 2021 022 [email or web address] 5 [facility] #0693, [address] [place], [address], 3 11:35:49 cephalexin 500 mg capsule 2021 022 [email or web address] 5 [facility] #0693, [address] [place], [address], 3 11:35:49 Patient TargetsNo targets recorded. Patient Instructions Encounter Date Encounter Id Patient Instructions Last Modified By Organization Details Last Modified Time 01/03/2022 [id number] candidiasis: car e instructions [email or web address] Not available [...] pain. [email or web address] Not available 01/03/2022 13:03:10 05/07/2022 [id number] start mucinex as directed to help thin mucous drink plenty of fluids continue humidifier/steam rest continue albuterol inhaler four times per day for cough/breathing can use peppermints for cough can use honey for cough *Ltac, Located Within [facility] will call to schedule chest xray. Should be complete within the next 24hrs *[facility] will follow up on Wednesday for recheck Please get to the ER if you are feeling worse [email or web address] Not available 05/07/2022 10:16:40 10/06/2022 [id number] Thank you for yo ur visit with [facility] today. You were seen today [...] in your condition between 8am-10pm, please call [facility] at [phone] to help navigate your care. Not available 10/06/2022 12:03:22 Reason for Referral None Reported. Results Created Date Observation Date Name Description Value Unit Range Abnormal Flag Note LastModifiedBy Organization Detail LastModifiedTime 07/04/19 23 07/04/2022 rapid SARS CoV 2 Ag, QL IA, respi rator y speci men Covid-19 (ref: neg) negati ve Not Available [facility] [address], [place], [address], 07/04/2022 11:44:48 07/04/19 23 07/04/2022 rapid SARS CoV 2 Ag, QL IA, respi rator y speci men Control Visual ized/V alid Not Available [facility] [address], [place], [address], 07/04/2022 11:44:48 07/04/19 23 07/04/2022 rapid SARS CoV 2 Ag, QL IA, respi rator y speci men Location [facility], [facility], [address], [place] [address], [phone] Not Available [facility] [address], [place], [address], 07/04/2022 11:44:48 05/08/20 22 05/08/2022 XR, chest [...] Leone M.D. 2021 11:53: 41 AM EST. [email or web address] [employer] [address], [place], [address], 08/06/2022 12:49:04 10/08/1910/07/2022 XR, pelvi s, 3 [...] NGUYEN M.D. 023 10:47: 33 AM EDT. [email or web address] [facility] [address], [place], [address], 10/07/2022 18:32:41 10/08/1910/07/2022 hip uni W or [...] NGUYEN M.D. 023 10:47: 33 AM EDT. [email or web address] [facility] [address], [place], [address], 10/07/2022 18:32:16 Result Notes Documentation Provider Name [...] AM EST. FADI NASCIMENTO [address], [place], [address], [place] [facility] 08/06/2022 12:49:04 Xr, Pelvis, [...] AM EDT. FADI Clemens [address], [place], [address], [place] [facility] 10/07/2022 18:32:41 Procedures Surgical History Date Name Laterality Status Provider Name and Address Organization Details Recorded Time 07/04/19 23 Nebulizer treatment - DH completed FADI Clemens [address], [place], [address], [place] [facility] 07/04/2022 12:38:06 05/07/20 22 Nebulizer treatment - DH completed FADI NASCIMENTO [address], [place], [address], [place] [facility] 05/07/2022 10:29:59 total replacement of right hip joint completed FADI Young [address], [place], [address], [place] [facility] 10/04/2021 10:27:45 Gastric bypass for obesity completed FADI Young [address] [place], [address], [place] [facility] 10/04/2021 10:28:00 bilateral extraction of cataracts completed FADI Young [address], [place], [address], [place] [facility] 10/04/2021 10:28:07 biopsy of breast completed FADI Young [address], [place], [address], [place] [facility] 10/04/2021 10:28:14 tonsilectomy/a denoids completed FADI Young [address], [place], [address], [place] [facility] 10/04/2021 10:29:26 Imaging Results None recorded. Procedure Notes None recorded. Medical Equipment None Reported. Allergies Allergen ID Allergen Name Allergen Category Reaction Reaction Severity Criticality Documentation Date Start Date Code Code System Note Provider Name and Address Organization Details Recorded Time [id number] Non-stero idal anti-infl ammatory agent (substanc e) medicatio n Not available Not available Not available 10/04/2021 92449 5008 SNOMED FADI Santiago [address] [place], [address], [place] [facility] 2 10:52:20 [id number] sucralfat e medicatio n Not available Not available Not available 10/06/2022 [id number] RxNorm Hollie Jiang NP [address] [place], [address], [place] [facility] 3 12:01:45 [...] % 60 /min 108/62 mm[Hg] Not Available [facility] 2 10:29:44 Date Recorded Oxygen saturation Oxygen saturation in Arterial blood by Pulse oximetry Body temperature Respiratory rate Heart rate Systolic And Diastolic Provider Name and Address Organization Details Last Updated DateTime 3 97 % 97 % 98.2 [degF] 18 /min 65 /min 124/68 mm[Hg] Not Available [facility] 3 12:06:44 Date Recorded Body temperature Oxygen saturation Oxygen saturation in Arterial blood by Pulse oximetry Respiratory rate Heart rate Systolic And Diastolic Provider Name and Address Organization Details Last Updated DateTime 2 98.3 [degF] 98 % 98 % 16 /min 82 /min 126/74 mm[Hg] Not Available [facility] 2 12:32:06 Date Recorded Respiratory rate Provider Name a vt Address Organization Details Last Updated DateTime 05/07/2022 20 /min FADI NASCIMENTO [address] [place], [address], [place] [facility] 05/07/2022 10:29:35 Date Recorded [...] % 96 % 110/72 mm[Hg] Not Available [facility] 2 09:48:07 Social History Question Answer Notes LastModified by Organizat ion Details LastModified Time Tobacco Smoking Status Former Smoker FADI Young [address], [place], [address], [place] [facility] 10/04/2021 10:29:06 Do You Have An Advance Directive? Yes [email or web address] Information not available 10/06/2022 What Is Your Code Status? Full Code [email or web address] Information not available 10/06/2022 Within The Past 12 Months, Has It Happened That The Food You Bought Just Didn't Last And You Didn't Have Money To Get More. Never True Information not available 10/06/2022 Within The Past 12 Months, Have You Worried That Your Food Would Run Out Before You Got Money To Buy More. Never True [email or web address] Information not available 10/06/2022 Fall Risk: Do You Feel Unsteady When Standing Or Walking? No [email or web address] Information not available 10/06/2022 Excessive Alcohol Or Drug Use No [email or web address] Information not available 10/06/2022 Does This Patient Have A PCP? Yes [email or web address] Information not available 10/06/2022 ADL: Do You Need Help With Daily Activities Such As Bathing, Preparing Meals, Dressing, Or Cleaning? No Information not available 10/06/2022 What Is Your Current Pack Years? 10-19packye ars [email or web address] Information not available 10/06/2022 Sex: Unknown Functional [...] ICD10 Code Diagnosis IMO Codes Diagnosis Note [id number] FADI Arevalo [facility] - [address] [place] [address] 10/04/2021 09:57:17 10/09/2021 09:37:20 Wound cellulitis [id number] L03.90 [id number] ASIF LOVELL NP [facility] [address] [place] [address] 01/03/2022 12:26:14 01/05/2022 09:24:30 Candidal intertrigo [id number] B37.2 [id number] FADI NASCIMENTO [facility] [address] [place] [address] 05/07/2022 09:43:13 05/10/2022 20:18:20 Community acquired pneumonia [id number] J18.9 Status of condition: Acute. Testing/Re sults:CXR [...] up precaution s Bilateral lower limb edema [id number] R60.0 Status of condition: Chronic. Testing/Re sults:none Discussion :ddx includes CHF, PVD, DVT Plan, Medication Management & Follow-up recommenda tions:Cont inue eval and work up with pcp [id number] FADI Clemens [facility] [address] [facility] [place] [address] 07/04/2022 11:34:05 07/06/2022 08:32:25 Acute bronchitis [id number] J20.9 Essential hypertension 99148163 I10 [id number] Hollei Jiang NP [facility] [address] [facility] [place] [address] 10/06/2022 11:52:31 10/08/2022 18:44:12 Wound cellulitis [id number] L03.90 Status of condition: Exacerbati on/Acute on [...] Hall Member ID Guarantor Name 01/03/2022 1 [facility] (MEDICARE REPLACEMENT/A DVANTAGE - PPO) [id number] Mayra Rodriguez [id number] [facility] 10/09/2022 1 [facility] (MEDICARE REPLACEMENT/A DVANTAGE - PPO) [id number] Mayra Rodriguez [id number] [facility] 08/20/2020 1 *SELF PAY* Mayra Rodriguez [id number] [facility] 10/09/2021 1 [facility] (MEDICARE REPLACEMENT/A DVANTAGE - HMO) [id number] Mayra Rodriguez [id number] [facility] 12/17/2022 2 [place]: [facility] Mayra Gatesman [id number] [facility] 01/03/2022 1 [facility] (MEDICARE REPLACEMENT/A DVANTAGE - HMO) [id number] Mayra Rodriguez [id number] [facility] 10/09/2021 1 [facility] (MEDICARE REPLACEMENT/A DVANTAGE - HMO) [facility] Mayra Rodriguez [id number] [facility] 10/09/2021 1 [facility] (MEDICARE REPLACEMENT/A DVANTAGE - HMO) [facility] Mayra Rodriguez [id number] Mayra Rodriguez Notes Date Note Type Note [...] today.Of note does reports she went to [facility] ER last night to get this looked at and she left after the wait was going to be 10+ hours, this was [facility]. FADI Young [address], [place], [address], [place] [facility] 10/04/2021 11:19:03 01/03/2022 text/html [...] well. ASIF LOVELL NP [address], [place], [address], [place] [facility] 01/03/2022 13:03:27 05/07/2022 text/html [...] showed RBBB. FADI NASCIMENTO [address], [place], [address], [place] [facility] 05/07/2022 10:38:42 07/04/2022 text/html [...] helping. Madeleine Pitts, FADI [address], [place], [address], [place] [facility] 07/04/2022 12:45:03 10/06/2022 text/html [...] edema. Hollie Jiang NP [address], [place], [address], [place] [facility] 10/06/2022 12:38:29 OBGyn Episode No OBEpisode recorded.
== END 2025-02-27 11:15 | disposition home or self-care (01) ==
LOC: HO.HGI 10:18
PROVIDERS: PCP Internal Medicine; Visit Provider Nurse Practitioner
DX: K59.01 Slow transit constipation (principal); K21.00 Gastro-esophageal reflux disease with esophagitis, without bleeding
CPT/HCPCS: 99213

== ENCOUNTER → 2025-02-27 10:17 | Outpatient (BNVA) | payer MEDICARE, MEDICAID, SELFPAY | PROVIDERS: PCP Internal Medicine; Visit Provider Nurse Practitioner | DX: K59.01 Slow transit constipation (principal); K21.00 Gastro-esophageal reflux disease with esophagitis, without bleeding; K43.9 Ventral hernia without obstruction or gangrene; I10 Essential (primary) hypertension; Z98.84 Bariatric surgery status; Z86.19 Personal history of other infectious and parasitic diseases | CPT/HCPCS: 99212 ==

== ENCOUNTER 2025-03-15 09:49 | Outpatient (AMB) | payer OTHER, MEDICAID, SELFPAY ==
--- NOTE | 2025-03-15 10:01 | MHC.OFFVIS ---
Intake Visit Reasons: 6m Allergies sucralfate (Carafate) Allergy (Intermediate, Verified 02/27/25 10:49) hives NSAIDS (Non-Steroidal Anti-Inflamma Adverse Reaction (Intermediate, Verified 02/27/25 10:49) cannot take due to gastric bypass history HPI Comments Details: 79 y/o woman with obesity, depression RLS, and familial tremor. She is presenting with insomnia. She reports difficulty sleeping, citing too much activity in her life as a contributing factor. She indicated that her current medication is helping with this issue. Currently, she is on Prevodone along with another medication identified as her MRL, reflecting satisfaction with the therapeutic effects of this regimen. The need for prescription refills was derived from this interaction and she clarified that she has new mail order arrangements for these medications with [employer]. [facility] Medical History (Updated 03/15/25 @ 10:03 by Sabas Smith MD) Encounter for general adult medical examination with abnormal findings Abdominal wall bulge Hospital discharge follow-up Sepsis with acute renal failure and septic shock Streptococcal bacteremia Bacteremia due to Staphylococcus aureus MSSA bacteremia Atrial fibrillation with rapid ventricular response Atrial fibrillation CKD stage 3a, GFR 45-59 ml/min Osteoporosis Acute kidney injury superimposed on CKD Thoracolumbar back pain Decreased GFR ANIYA (acute kidney injury) Self-care deficit in patient living alone Chronic wound Seroma of musculoskeletal structure after musculoskeletal system procedure New onset a-fib History of septic shock Unspecified open wound, right hip, initial encounter Sleep disorder Abnormal skin growth Tubular adenoma of colon Ex-smoker Mitral annular calcification Aortic valve calcification Stasis edema of both lower extremities Family history of colon cancer Nail fungus Nocturnal hypoxemia Right bundle branch block Premature atrial contractions Hip pain, right Soft tissue infection Sepsis Septic shock Acute hypotension Oropharyngeal dysphagia Post-COVID chronic dyspnea Chronic GERD Peripheral vascular disease SOULEYMANE (obstructive sleep apnea) Wound, open, hip or thigh with complication Preoperative cardiovascular examination Change in bowel movement Traumatic seroma of right thigh Postprocedural seroma of skin and subcutaneous tissue following other procedure Open wound of right hip and thigh Right rib fracture Menopause Pain management Pain management contract agreement Open wound of right lower leg with complication Shortness of breath Cough Edema Influenza A H1N1 infection Cellulitis of right leg Varicose veins of right lower extremity with inflammation Enterococcus faecalis infection Abscess Hip pain, right Obesity Lymphedema Morbid obesity due to excess calories Pre-op evaluation Colon cancer screening Medicare annual wellness visit, subsequent Family history of anesthesia complication Back pain Arthritis Renal calculi Post-influenza syndrome Tremor Peripheral vascular disease Right bundle branch block (RBBB) Aortic valve calcification Mitral annular calcification COPD (chronic obstructive pulmonary disease) Restrictive lung disease Depression, major, recurrent Hypertension, essential Surgical History S/P total right hip arthroplasty History of excision of lesion (10/20/23) History of total hip arthroplasty S/P gastric bypass History of surgery on lower extremity (01/25/23) History of surgery H/O colonoscopy History of cataract extraction History of bilateral tubal ligation History of tonsillectomy Family History Father No problems noted. Mother Alzheimer's disease Maternal Grandmother Cancer Maternal Grandfather No problems noted. Paternal Grandfather No problems noted. Paternal Grandmother No problems noted. Maternal Aunt Cancer Sister Colon cancer Son No problems noted. Daughter No problems noted. Social History Household Members: None Housing: Other Housing Other:: Mobile home Are you a primary health care consultant to a significant other at home: No Do you presently have visiting nurse or other home services: Yes (Wound Care) Alcohol intake: former Patient Tobacco Use Status: Former Tobacco user Tobacco use type: Cigarette Years Smoked: 40 e-Cigarette/Vaping Use: Former Use Second Hand Smoke Exposure: No Advance Directives Date on File: 03/13/15 service: No Current occupational status: retired and other Current occupation: right handed Cognitive needs: No Hearing needs: No Vision needs: No Female Reproductive History Menstrual Age of Menarche: 13 Review of Systems Narrative - Neurological: Reports difficulty with sleep. - Psychiatric: Reports a good mood; no alterations indicated. Physical Exam Neuro Other: Mental Status: Alert and oriented to person, place, and time. Normal attention. Normal spontaneous speech, fluency, and comprehension. Cranial Nerves: CN II: Visual nelson full to confrontation, visual acuity intact. CN III, IV, : Pupils equal, round, reactive to light and accommodation. Extraocular movements are normal. CN V: Facial sensation is normal. CN VII: Facial movements symmetrical. CN VIII: Hearing intact to bedside conversation is normal. CN IX, X: Palate elevates symmetrically. CN XI: Shoulder shrug and head turn symmetrical. CN XII: Tongue midline without atrophy or fasciculations. Gait and Station: Cautious gait with a cane Extrapyramidal: Mild bilateral hand postural tremor Speech: Normal; no dysarthria or tremor. Assessment & Plan Assessment & Plan (1) Familial tremor: Code(s): G25.0 - Essential tremor Category: Medical (2) RLS (restless legs syndrome): Comment: PSG at [facility] [place] in 2019: PLMS arousal ind: 8.3. Code(s): G25.81 - Restless legs syndrome Category: Medical Plan Impression: 1. Familial essential tremor affecting her hands 2. Restless legs syndrome Recommendations: 1. Primidone 50 mg 1 at night for tremor 2. Ropinirole 0.25 mg 1 at bedtime for restless legs syndrome Medications: Refilled primidone 50 mg PO BEDTIME 90 tabs 1RF ropinirole 0.25 mg PO DAILY 90 tabs 1RF Coding Level of Care Code Est Pt Level 4 (01276) Diagnoses Familial tremor G25.0 RLS (restless legs syndrome) G25.81
--- OUTSIDE RECORDS SUMMARY | 2025-03-15 11:08 | XMS_ITS | Data Portability ---
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 Exam: Vitals: VSS and [...] scheduled Time On Scene with Patient: 00:42:25 [email or web address] Not available 05/07/2022 10:35:29 07/04/2022 07/04/2022 Brief [...] according to [facility]'s infection prevention protocols. [email or web address] Not available 07/04/2022 12:44:13 10/06/2022 10/06/2022 Brief [...] to patient. All questions answered. wound care [phone] - wound care states that they have [...] [facility] - [facility], [address] [place] [address], [address], 12:38:31 Referral None recorded. Procedures None recorded. Surgeries None recorded. Imaging XR, pelvis, 3 or more view - rule out osteomyelit is. tunneling wound over [facility] hip [facility] 20[facility]23 [facility] [address], [place], [address], 3 11:01:28 XR, chest, 2 view 2021 022 [facility]), [address], [place], [address], 2 11:58:06 Medication Orders doxycycline hyclate 100 mg capsule 2022 023 [facility]acy #[id number], [address] [place], [address], 3 12:35:07 albuterol sulfate concentrate 2.5 mg/0.5 mL solution for nebulizatio n 2022 023 [email or web address]/Pharmacy #0693, [address] [place], [address], 3 12:38:23 ipratropium bromide 0.02 % solution for inhalation [email or web address] [facility]/Pharmacy #0693, [address] [place], [address], 3 12:38:34 prednisone 20 mg tablet 2022 023 [email or web address] [facility]0693, [address] [place], [address], 3 12:02:14 prednisone 10 mg tablet [email or web address] [facility]armacy #0693, [address] [place], [address], 3 12:02:10 amoxicillin 875 mg-potassiu m clavulanate 125 mg tablet [email or web address] [facility]armacy #0693, [address] [place], [address], 3 11:35:26 azithromyci n 250 mg tablet [email or web address] [facility]armacy #0693, [address] [place], [address], 3 11:35:33 albuterol sulfate concentrate 2.5 mg/0.5 mL solution for nebulizatio n [address]/Pharmacy #0693, [address] [place], [address], 2 10:12:45 ipratropium bromide 0.02 % solution for inhalation [address]/Pharmacy #0693, [address] [place], [address], 2 10:12:42 nystatin 100,000 unit/gram topical cream [address]/Pharmacy #0693, [address] [place], [address], 2 09:43:56 cephalexin 500 mg capsule [email or web address] [facility]/Pharmacy #0693, [address] [place], [address], 3 11:35:49 cephalexin 500 mg capsule [email or web address] [facility]/Pharmacy #0693, [address] [place], [address], 3 11:35:49 Patient TargetsNo targets recorded. Patient Instructions Encounter Date Encounter Id Patient Instructions Last Modified By Organization Details Last Modified Time 01/03/2022 [id number] candidiasis: car e instructions [email or web address] Not available [...] pain. [email or web address] Not available 01/03/2022 13:03:10 05/07/2022 [id number] start mucinex as directed to help thin mucous drink plenty of fluids continue humidifier/steam rest continue albuterol inhaler four times per day for cough/breathing can use peppermints for cough can use honey for cough *[facility] will call to schedule chest xray. Should be complete within the next 24hrs *[facility] will follow up on Wednesday for recheck Please get to the ER if you are feeling worse [email or web address] Not available 05/07/2022 10:16:40 10/06/2022 [id number] Thank you for yo ur visit with [facility] today. You were seen today [...] in your condition between 8am-10pm, [facility] at [phone] to help navigate your care. [email or web address] Not available 10/06/2022 12:03:22 Reason for Referral None Reported. Results Created Date Observation Date Name Description Value Unit Range Abnormal Flag Note LastModifiedBy Organization Detail LastModifiedTime 07/04/19 23 07/04/2022 rapid SARS CoV 2 Ag, QL IA, respi rator y speci men Covid-19 (ref: neg) negati ve Not Available [facility] [address], [place], [address], 07/04/2022 11:44:48 07/04/19 23 07/04/2022 rapid SARS CoV 2 Ag, QL IA, respi rator y speci men Control Visual ized/V alid Not Available [facility] [address], [place], [address], 07/04/2022 11:44:48 07/04/19 23 07/04/2022 rapid SARS CoV 2 Ag, QL IA, respi rator y speci men Location [facility], [address], [place] [address], [id number] Not Available [facility] [address], [place], [address], 07/04/2022 11:44:48 05/08/20 22 05/08/2022 XR, chest [...] Leone M.D. 2021 11:53: 41 AM EST. [email or web address] [employer] [address], [place], [address], 08/06/2022 12:49:04 10/08/1910/07/2022 XR, pelvi s, 3 [...] NGUYEN M.D. 023 10:47: 33 AM EDT. [employer] [address] [facility], [place], [address], 10/07/2022 18:32:41 10/08/1910/07/2022 hip uni W or [...] NGUYEN M.D. 023 10:47: 33 AM EDT. [email or web address] [employer] [address] [facility] [address], [place], [address], 10/07/2022 18:32:16 Result Notes Documentation Provider Name [...] AM EST. FADI NASCIMENTO [address], [place], [address], [place] [facility] 08/06/2022 12:49:04 Xr, Pelvis, [...] AM EDT. FADI Clemens [address], [place], [address], [place] [facility] 10/07/2022 18:32:41 Procedures Surgical History Date Name Laterality Status Provider Name and Address Organization Details Recorded Time 07/04/19 23 Nebulizer treatment - DH completed FADI Clemens [address], [place], [address], [place] [facility] 07/04/2022 12:38:06 05/07/20 22 Nebulizer treatment - DH completed FADI NASCIMENTO [address], [place], [address], [place] [facility] 05/07/2022 10:29:59 total replacement of right hip joint completed FADI Young [address], [place], [address], [place] [facility] 10/04/2021 10:27:45 Gastric bypass for obesity completed FADI Young [address] [place], [address], [place] [facility] 10/04/2021 10:28:00 bilateral extraction of cataracts completed FADI Young [address], [place], [address], [place] [facility] 10/04/2021 10:28:07 biopsy of breast completed FADI Young [address], [place], [address], [place] [facility] 10/04/2021 10:28:14 tonsilectomy/a denoids completed FADI Young [address], [place], [address], [place] [facility] 10/04/2021 10:29:26 Imaging Results None recorded. Procedure Notes None recorded. Medical Equipment None Reported. Allergies Allergen ID Allergen Name Allergen Category Reaction Reaction Severity Criticality Documentation Date Start Date Code Code System Note Provider Name and Address Organization Details Recorded Time 026947 Non-stero idal anti-infl ammatory agent (substanc e) medicatio n Not available Not available Not available 10/04/2021 94634 5008 SNOMED FADI Santiago [address] [place], [address], [place] [facility] 2 10:52:20 [id number] sucralfat e medicatio n Not available Not available Not available 10/06/2022 10000 RxNorm Hollie Jiang NP [address] [place], [address], [place] [facility] 3 12:01:45 [...] % 60 /min 108/62 mm[Hg] Not Available [facility] 2 10:29:44 Date Recorded Oxygen saturation Oxygen saturation in Arterial blood by Pulse oximetry Body temperature Respiratory rate Heart rate Systolic And Diastolic Provider Name and Address Organization Details Last Updated DateTime 3 97 % 97 % 98.2 [degF] 18 /min 65 /min 124/68 mm[Hg] Not Available [facility] 3 12:06:44 Date Recorded Body temperature Oxygen saturation Oxygen saturation in Arterial blood by Pulse oximetry Respiratory rate Heart rate Systolic And Diastolic Provider Name and Address Organization Details Last Updated DateTime 2 98.3 [degF] 98 % 98 % 16 /min 82 /min 126/74 mm[Hg] Not Available [facility] 2 12:32:06 Date Recorded Respiratory rate Provider Name a md Address Organization Details Last Updated DateTime 05/07/2022 20 /min FADI NASCIMENTO [address] [place], [address], [place] [facility] 05/07/2022 10:29:35 Date Recorded [...] % 96 % 110/72 mm[Hg] Not Available [facility] 2 09:48:07 Social History Question Answer Notes LastModified by Organizat ion Details LastModified Time Tobacco Smoking Status Former Smoker FADI Young [address], [place], [address], [place] [facility] 10/04/2021 10:29:06 Do You Have An Advance Directive? Yes [email or web address] Information not available 10/06/2022 What Is Your Code Status? Full Code [email or web address] Information not available 10/06/2022 Within The Past 12 Months, Has It Happened That The Food You Bought Just Didn't Last And You Didn't Have Money To Get More. Never True Information not available 10/06/2022 Within The Past 12 Months, Have You Worried That Your Food Would Run Out Before You Got Money To Buy More. Never True [email or web address] Information not available 10/06/2022 Fall Risk: Do You Feel Unsteady When Standing Or Walking? No [email or web address] Information not available 10/06/2022 Excessive Alcohol Or Drug Use No [email or web address] Information not available 10/06/2022 Does This Patient Have A PCP? Yes [email or web address] Information not available 10/06/2022 ADL: Do You Need Help With Daily Activities Such As Bathing, Preparing Meals, Dressing, Or Cleaning? No [email or web address] Information not available 10/06/2022 What Is Your Current Pack Years? 10-19packye ars [email or web address] Information not available 10/06/2022 Sex: Unknown Functional [...] ICD10 Code Diagnosis IMO Codes Diagnosis Note [id number] FADI Arevalo [facility] - [address] [place] [address] 10/04/2021 09:57:17 10/09/2021 09:37:20 Wound cellulitis [id number] L03.90 [id number] ASIF LOVELL NP [facility] [address] [place] [address] 01/03/2022 12:26:14 01/05/2022 09:24:30 Candidal intertrigo [id number] B37.2 [id number] FADI NASCIMENTO [facility] [address] [place] [address] 05/07/2022 09:43:13 05/10/2022 20:18:20 Community acquired pneumonia [id number] J18.9 Status of condition: Acute. Testing/Re sults:CXR [...] up precaution s Bilateral lower limb edema [id number] R60.0 Status of condition: Chronic. Testing/Re sults:none Discussion :ddx includes CHF, PVD, DVT Plan, Medication Management & Follow-up recommenda tions:Cont inue eval and work up with pcp [id number] FADI Clemens [facility] [address] [place] [address] 07/04/2022 11:34:05 07/06/2022 08:32:25 Acute bronchitis [id number] J20.9 Essential hypertension [id number] I10 [id number] Hollie Jiang NP [facility] [address] [place] [address] 10/06/2022 11:52:31 10/08/2022 18:44:12 Wound cellulitis [id number] L03.90 Status of condition: Exacerbati on/Acute on [...] Hall Member ID Guarantor Name 01/03/2022 1 [facility] (MEDICARE REPLACEMENT/A DVANTAGE - PPO) [id number] Mayra Rodriguez [id number] [facility] 10/09/2022 1 [facility] (MEDICARE REPLACEMENT/A DVANTAGE - PPO) [id number] Mayra Rodriguez [id number] [facility] 08/20/2020 1 *SELF PAY* Mayra Rodriguez [id number] [facility] 10/09/2021 1 [facility] (MEDICARE REPLACEMENT/A DVANTAGE - HMO) [id number] Mayra Rodriguez [id number] [facility] 12/17/2022 2 [place] [facility] Mayra Gatesman [id number] [facility] 01/03/2022 1 [facility] (MEDICARE REPLACEMENT/A DVANTAGE - HMO) [id number] Mayra Rodriguez [id number] [facility] 10/09/2021 1 [facility] (MEDICARE REPLACEMENT/A DVANTAGE - HMO) [facility] Mayra Rodriguez [id number] [facility] 10/09/2021 1 [facility] (MEDICARE REPLACEMENT/A DVANTAGE - HMO) [facility] Mayra Rodriguez [id number] Mayra Rodriguez Notes Date Note Type Note [...] be 10+ hours, this was [facility]. FADI Young [address], [place], [address], [place] [facility] 10/04/2021 11:19:03 01/03/2022 text/html [...] well. ASIF LOVELL NP [address], [place], [address], [place] [facility] 01/03/2022 13:03:27 05/07/2022 text/html [...] showed RBBB. FADI NASCIMENTO [address], [place], [address], [place] [facility] 05/07/2022 10:38:42 07/04/2022 text/html [...] been helping. Madeleine Pitts, FADI [address], [place], [address], [place] [facility] 07/04/2022 12:45:03 10/06/2022 text/html [...] edema. Hollie Jiang NP [address], [place], [address], [place] [facility] 10/06/2022 12:38:29 OBGyn Episode No OBEpisode recorded.
== END 2025-03-15 10:29 | disposition home or self-care (01) ==
PROVIDERS: PCP Internal Medicine; Referring Provider Internal Medicine; Visit Provider Psychiatry & Neurology Neurology
DX: G25.0 Essential tremor (principal); G25.81 Restless legs syndrome
CPT/HCPCS: 99214

== ENCOUNTER → 2025-03-15 09:49 | Outpatient (BNVA) | payer OTHER, SELFPAY | PROVIDERS: PCP Internal Medicine; Referring Provider Internal Medicine; Visit Provider Psychiatry & Neurology Neurology | DX: G25.81 Restless legs syndrome (principal); G25.0 Essential tremor | CPT/HCPCS: 99212 ==

== ENCOUNTER 2025-03-23 11:10 | Outpatient (AMB) | payer OTHER, SELFPAY ==
[2025-03-23 11:12] VITALS: BP 110/67; PULSE 91; BMI 32.6
--- NOTE | 2025-03-23 11:12 | A.OFFVIS_ITS ---
Vital Signs 03/23/25 11:12 Height 4 ft 10 in Weight 156 lb BMI 32.6 BP 110/67 Blood Pressure Location Rt brachial Position Sitting Pulse 91 Intake Visit Reasons: Follow up on medication Intake Note: Mayra presents to in office visit today in follow up of constipation. CC: Patient reports that since she still has motegrity she did not start the Linzess. She is doing well and denies having any new GI symptoms. 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: No Accompanied by: Self / Same As Patient Allergies sucralfate (Carafate) Allergy (Intermediate, Verified 03/23/25 11:25) hives NSAIDS (Non-Steroidal Anti-Inflamma Adverse Reaction (Intermediate, Verified 03/23/25 11:25) cannot take due to gastric bypass history HPI HPI Follow up on medication: Details: Assessment & Plan (1) Constipation: Code(s): K59.00 - Constipation, unspecified Category: Medical Qualifiers: Constipation type: slow transit constipation Qualified Code(s): K59.01 - Slow transit constipation (2) GERD with esophagitis: Code(s): K21.00 - Gastro-esophageal reflux disease with esophagitis, without bleeding Category: Medical Qualifiers: Esophagitis bleeding: without hemorrhage Qualified Code(s): K21.00 - Gastro-esophageal reflux disease with esophagitis, without bleeding Plan on the omeprazole. She will be due for repeat colonoscopy in 08/2025. - The patient is a 79-year-old female presenting with GERD. - GERD is effectively managed with dexlansoprazole. - Uses bisacodyl for constipation; effective at two tablets at bedtime. - Concerns regarding loss of insurance coverage for Motegrity, exploring alternatives like Linzess. - Successfully healed from a previous wound attributed to sepsis. - Family history reveals potential genetic conditions pertinent to gastrointe stinal cancer, notably possible Merino syndrome. She asks about genetic testing but we do not perform it through this office as we do not have a qualified printed circuit board pcb designer to offer counseling about what positive result findings may mean. I also do not know how this is covered in terms of insurance. She says she will ask her oncologist about this. Since her colonoscopy was in August of 2022 we will plan on ordering it after I see her at the next six-month visit. Return office visit in 6 months Medications: New linaclotide (Linzess) 290 mcg PO QAM 30 caps 3RF 30 days Refilled dexlansoprazole (Dexilant) 60 mg PO DAILY 30 caps 3RF 30 days K21.00 - Gastro-esophageal reflux disease with esophagitis, without bleeding TODAY'S VISIT [facility] Medical History (Updated 03/23/25 @ 11:49 by DELORES Pérez) Tubular adenoma of colon Pre-op evaluation Supraumbilical hernia Nausea Encounter for general adult medical examination with abnormal findings Abdominal wall bulge Hospital discharge follow-up Sepsis with acute renal failure and septic shock Streptococcal bacteremia Bacteremia due to Staphylococcus aureus MSSA bacteremia Atrial fibrillation with rapid ventricular response Atrial fibrillation CKD stage 3a, GFR 45-59 ml/min Osteoporosis Acute kidney injury superimposed on CKD Thoracolumbar back pain Decreased GFR ANIYA (acute kidney injury) Self-care deficit in patient living alone Chronic wound Seroma of musculoskeletal structure after musculoskeletal system procedure New onset a-fib History of septic shock Unspecified open wound, right hip, initial encounter Sleep disorder Abnormal skin growth Ex-smoker Mitral annular calcification Aortic valve calcification Stasis edema of both lower extremities Family history of colon cancer Nail fungus Nocturnal hypoxemia Right bundle branch block Premature atrial contractions Hip pain, right Soft tissue infection Sepsis Septic shock Acute hypotension Oropharyngeal dysphagia Post-COVID chronic dyspnea Chronic GERD Peripheral vascular disease SOULEYMANE (obstructive sleep apnea) Wound, open, hip or thigh with complication Preoperative cardiovascular examination Change in bowel movement Traumatic seroma of right thigh Postprocedural seroma of skin and subcutaneous tissue following other procedure Open wound of right hip and thigh Right rib fracture Menopause Pain management Pain management contract agreement Open wound of right lower leg with complication Shortness of breath Cough Edema Influenza A H1N1 infection Cellulitis of right leg Varicose veins of right lower extremity with inflammation Enterococcus faecalis infection Abscess Hip pain, right Obesity Lymphedema Morbid obesity due to excess calories Colon cancer screening Medicare annual wellness visit, subsequent Family history of anesthesia complication Back pain Arthritis Renal calculi Post-influenza syndrome Tremor Peripheral vascular disease Right bundle branch block (RBBB) Aortic valve calcification Mitral annular calcification COPD (chronic obstructive pulmonary disease) Restrictive lung disease Depression, major, recurrent Hypertension, essential Surgical History S/P total right hip arthroplasty History of excision of lesion (10/20/23) History of total hip arthroplasty S/P gastric bypass History of surgery on lower extremity (01/25/23) History of surgery H/O colonoscopy History of cataract extraction History of bilateral tubal ligation History of tonsillectomy Family History Father No problems noted. Mother Alzheimer's disease Maternal Grandmother Cancer Maternal Grandfather No problems noted. Paternal Grandfather No problems noted. Paternal Grandmother No problems noted. Maternal Aunt Cancer Sister Colon cancer Son No problems noted. Daughter No problems noted. Social History Household Members: None Housing: Other Housing Other:: Mobile home Are you a primary acute care registered nurse to a significant other at home: No Do you presently have visiting nurse or other home services: Yes (Wound Care) Alcohol intake: former Patient Tobacco Use Status: Former Tobacco user Tobacco use type: Cigarette Years Smoked: 40 e-Cigarette/Vaping Use: Former Use Second Hand Smoke Exposure: No Advance Directives Date on File: 03/13/15 service: No Current occupational status: retired and other Current occupation: right handed Cognitive needs: No Hearing needs: No Vision needs: No Female Reproductive History Menstrual Age of Menarche: 13 Review of Systems Const Denies fatigue, Denies fever(s), Denies night sweats, Denies poor appetite and Denies weight loss ENT Reports Normal hearing present, Denies dental pain, Denies dysphagia, Denies hearing loss, Denies mouth pain, Denies odynophagia, Denies throat swelling, Denies tongue swelling and Reports other (Dentition adequate) Card Reports no additional complaints Resp Reports no additional complaints GI Details: Denies abdominal pain, Denies melena, Denies bloating, Denies hematochezia, Reports constipation, Denies GI cramping, Denies dysphagia, Denies excessive flatus, Denies early satiety, Reports heartburn, Denies diarrhea, Denies nausea, Denies odynophagia, Denies vomiting and Denies hematemesis Musc Reports back pain and Reports myalgias Skin/Breast Denies pruritus, Denies lesions, Denies rash and Denies jaundice Neuro Reports Normal hearing present and Denies Abnormal speech present Endo Denies fatigue Aller/Immun Denies throat swelling and Denies tongue swelling Physical Exam Vital Signs: Last Vital Signs Pulse 91 03/23/25 11:12 BP 110/67 03/23/25 11:12 BMI result Body Mass Index 32.6 Const General: cooperative, no acute distress, well developed and well groomed Nutritional Appearance: well nourished and obese Orientation/consciousness: oriented to person, oriented to place and oriented to time Limitations: No language barrier and ambulation with cane HEENT Head: Yes normocephalic and Yes atraumatic Eyes General: appearance normal, both eyes and all related structures Pupils: Equal, round and reactive pupils present Neck Neck: Yes normal visual inspection and Yes no lymphadenopathy Thyroid: Thyroid normal Resp Effort & Inspection: normal respiratory effort and able to speak in complete sentences Auscultation: clear to auscultation bilaterally Cardio Rate: regular rate Rhythm: regular rhythm Heart sounds: Normal, physiologic split S2 sound present Peripheral pulses: radial pulses present and posterior tibial pulses present GI Inspection: No distended, Yes Abdominal panniculus present and Yes obesity Palpation (GI): Soft to palpation, nontender, no guarding, not rigid and Hepatosplenomegaly present Percussion: Yes normal to percussion Auscultation: normal bowel sounds Rectal Exam - Female: deferred Skin General skin exam: no rashes or lesions noted, turgor normal, skin not dry, no jaundice, No spider nevi and no striae Rashes: no rashes Nails: normal Neuro General: oriented to person, oriented to place and oriented to time Cranial nerves: Yes Equal, round and reactive pupils present and Yes Normal hearing present Speech: No Abnormal speech present Extrem General: Yes normal to inspection, No clubbing, No cyanosis and No edema Psych Appearance: grossly normal and well kempt Mental Status: mental status grossly normal Speech and movement: Normal speech and movement present Affect: normal affect Attitude: cooperative Thought process: Normal thought process present and not confabulating Thought content: Normal thought content present Insight: Good insight present (Psych) Judgement: Good judgement present (Psych) Results Reviewed Results Reviewed: Laboratory Tests 01/01/25 01/18/25 16:02 06:18 WBC 5.8 RBC 3.92 L Hgb 11.8 L Hct 36.8 L MCV 93.9 MCH 30.1 Plt Count 199 Estimated GFR 47 58 Total Bilirubin 0.2 AST 20 ALT 8 Alkaline Phosphatase 79 Assessment & Plan Assessment & Plan (1) Pre-op evaluation: Code(s): Z01.818 - Encounter for other preprocedural examination Category: Medical (2) Tubular adenoma of colon: Comment: 2022= 2 large TA is repeat in 3 years Code(s): D12.6 - Benign neoplasm of colon, unspecified Category: Medical (3) GERD with esophagitis: Code(s): K21.00 - Gastro-esophageal reflux disease with esophagitis, without bleeding Category: Medical Qualifiers: Esophagitis bleeding: without hemorrhage Qualified Code(s): K21.00 - Gastro-esophageal reflux disease with esophagitis, without bleeding (4) SOULEYMANE (obstructive sleep apnea): Comment: PATIENT HAS PAST HISTORY OF OBSTRUCTIVE SLEEP APNEA AND STOPPED USING THE CPAP ABOUT 6 YEARS AGO. NOW SHE IS BACK ON CPAP USAGE. SHE IS VERY COMPLIANT AND SLEEPS WELL. Code(s): G47.33 - Obstructive sleep apnea (adult) (pediatric) Category: Medical Plan HE IS ON LINZESS (unsure if she has it was on Motegrity insurance issues) AND DEXILANT(which we had to change to lansoprazole twice a day related to insurance) AND WILL BE DUE FOR A SCREENING COLONOSCOPY. Cardiac or respiratory problems: Afib well controlled on Eliquis, SOULEYMANE controlled. Problems with anesthesia or sedation: No Infectious disease problems: No Family history of colon cancer colon: Sister CRC and had merino syndrome, Pt had 2 TA's in 2022 that were large Subjective Patient presents for medication management and care coordination in the setting of insurance changes. She reports confusion regarding alternatives to Motegrity after being told her prior insurance would not cover it; she subsequently changed insurance and continued Motegrity 2 mg, with a couple of weeks remaining, as she was unsure what to substitute. She recalls I had previously sent in linaclotide (Linzess) to try but is unsure if she received it. We discussed using Linzess if she runs out of Motegrity while coverage is being worked on. She also notes we had changed her acid suppression from Dexilant to lansoprazole due to insurance; she is unsure if she received lansoprazole and has just run out of Dexilant. She is agreeable to proceeding with colonoscopy scheduling. Associated history: obstructive sleep apnea; atrial fibrillation reported as well controlled; on Eliquis. Family history notable for a sister who of colon cancer and had Merino syndrome. Relevant Past Medical, Social, and Family History - Sleep apnea - Atrial fibrillation on Eliquis - Family history: sister with colon cancer and Merino syndrome Objective Assessment & Plan Chronic idiopathic constipation: Ongoing symptomatic benefit on Motegrity 2 mg; current issue is coverage with new insurance. - Continue Motegrity 2 mg daily while current supply lasts. - If Motegrity supply runs out before coverage is secured, use linaclotide (Linzess) as a bridge. - Send prescription information to [facility] mail order and initiate/coordinate prior authorization with insurer. - PA team to contact [facility] customer service as advised by patient to explore [id number] coverage mechanism. Gastroesophageal reflux disease: Previously on Dexilant; transition to lansoprazole recommended due to formulary constraints. Patient has just run out of Dexilant and is unsure if lansoprazole was received. - Send lansoprazole prescription to [facility]. - Use lansoprazole as Dexilant alternative per formulary. Colorectal cancer screening: Due for colonoscopy; strong family history (sister with colon cancer, Merino syndrome). - Order colonoscopy. - Provided preparation instructions: clear liquids only for 24 hours prior; ensure adequate hydration; bowel prep as directed. - Scheduling department to contact patient within approximately 8 weeks; current scheduling into June. - Anticoagulation: anticipate holding Eliquis approximately 3 days pre- procedure; endoscopy team to provide final periprocedural anticoagulation instructions. - Anesthesia/sedation history without issues; SOULEYMANE noted for anesthesia planning. Atrial fibrillation on Eliquis: Reported well controlled. - Continue Eliquis per cardiology/primary management. - Coordinate periprocedural anticoagulation plan with endoscopy team around colonoscopy date. Follow-up: Return in 3 months to reassess medication access/response and review colonoscopy scheduling status. Orders: Referrals GI Procedure Notification D12.6 - Benign neoplasm of colon, unspecified, G47.33 - Obstructive sleep apnea (adult) (pediatric), K21.00 - Gastro-esophageal reflux disease with esophagitis, without bleeding, Z01.818 - Encounter for other preprocedural examination Medications: New peg 3350-electrolytes 236-22.74-6.74 -5.86 gram (Golytely) until fecal effluent is clear; do not exceed a total volume of 2,000 mL 240 mL PO Q10M 4,000 mL 0RF 1 day Z12.11 - Encounter for screening for malignant neoplasm of colon bisacodyl (Dulcolax (bisacodyl)) 10 mg (2 x 5 mg) PO BEDTIME 4 tabs 0RF 2 days Refilled Motegrity (prucalopride) 2 mg PO DAILY 90 tabs 3RF NS K59.00 - Constipation, unspecified lansoprazole 30 mg PO BID 60 caps 6RF Coding Level of Care Code Est Pt Level 3 (68442) Diagnoses Pre-op evaluation Z01.818 Tubular adenoma of colon D12.6 Gastroesophageal reflux disease with esophagitis without hemorrhage K21.00 Esophagitis bleeding: without hemorrhage SOULEYMANE (obstructive sleep apnea) G47.33
--- OUTSIDE RECORDS SUMMARY | 2025-03-23 17:10 | XMS_ITS | Data Portability ---
Author Organization [place] [facility] Address [address] [place] [id number] Care Team Providers Care Jet Operator Name Role Phone STEPHANIE MARIE Primary Care Provider [phone] [facility] OTHER Assessment Encounter Date Assessment Date Assessment [...] going to be 10+ hours, this was [facility]. Exam: Vitals: VSS [...] scheduled Time On Scene with Patient: 00:42:25 [email or web address] Not available 05/07/2022 10:35:29 07/04/2022 07/04/2022 Brief [...] after care of this patient according to [facility]'s infection prevention protocols. [email or web address] Not available 07/04/2022 12:44:13 10/06/2022 10/06/2022 Brief [...] to patient. All questions answered. wound care [phone] - wound care states that they have no apts sooner than but will place pt on cancellation list [email or web address] Not available 10/06/2022 12:38:07 Plan of Treatment Reminders Order Date Submit Date Provider Last Modified By Organization Details Last Modified Time Details Appointments None recorded. Lab rapid SARS CoV 2 Ag, QL IA, respiratory specimen 2022 023 [email or web address] 5 [facility], [address] [place] [address], [address], 12:38:31 Referral None recorded. Procedures None recorded. Surgeries None recorded. Imaging XR, pelvis, 3 or more view - rule out osteomyelit is. tunneling wound over [facility] 2022 023 [facility] [address] [facility], [place], [address], 3 11:01:28 XR, chest, 2 view 2021 022 [facility]), [address], [place], [address], 2 11:58:06 Medication Orders doxycycline hyclate 100 mg capsule 2022 023 [facility]armacy #[id number], [address] [place], [address], 3 12:35:07 albuterol sulfate concentrate 2.5 mg/0.5 mL solution for nebulizatio n [email or web address] [facility]/Pharmacy #0693, [address] [place], [address], 3 12:38:23 ipratropium bromide 0.02 % solution for inhalation 2022 023 [email or web address] 5 [facility]/Pharmacy #0693, [address] [place], [address], 3 12:38:34 prednisone 20 mg tablet 2022 023 [email or web address] [facility] #0693, [address] [place], [address], 3 12:02:14 prednisone 10 mg tablet 2022 023 [email or web address] [facility]/Pharmacy #0693, [address] [place], [address], 3 12:02:10 amoxicillin 875 mg-potassiu m clavulanate 125 mg tablet 2021 022 [email or web address] 5 [facility]/Pharmacy #0693, [address] [place], [address], 3 11:35:26 azithromyci n 250 mg tablet 2021 022 [email or web address] 5 [facility]/Pharmacy #0693, [address] [place], [address], 3 11:35:33 albuterol sulfate concentrate 2.5 mg/0.5 mL solution for nebulizatio n [address]/Pharmacy #0693, [address] [place], [address], 2 10:12:45 ipratropium bromide 0.02 % solution for inhalation [address]/Pharmacy #0693, [address] [place], [address], 2 10:12:42 nystatin 100,000 unit/gram topical cream [address]/Pharmacy #0693, [address] [place], [address], 2 09:43:56 cephalexin 500 mg capsule 2021 022 [email or web address] 5 [facility]/Pharmacy #0693, [address] [place], [address], 3 11:35:49 cephalexin 500 mg capsule 2021 022 [email or web address] 5 [facility]/Pharmacy #0693, [address] [place], [address], 3 11:35:49 Patient TargetsNo targets recorded. Patient Instructions Encounter Date Encounter Id Patient Instructions Last Modified By Organization Details Last Modified Time 01/03/2022 [id number] candidiasis: car e instructions [email or web address] Not available [...] pain. [email or web address] Not available 01/03/2022 13:03:10 05/07/2022 [id number] start mucinex as directed to help thin mucous drink plenty of fluids continue humidifier/steam rest continue albuterol inhaler four times per day for cough/breathing can use peppermints for cough can use honey for cough *[facility] will call to schedule chest xray. Should be complete within the next 24hrs *[facility] will follow up on Wednesday for recheck Please get to the ER if you are feeling worse [email or web address] Not available 05/07/2022 10:16:40 10/06/2022 [id number] Thank you for yo ur visit with [facility] today. You were seen today for [...] in your condition between 8am-10pm, please call [facility] at [phone] to help navigate your care. Not available 10/06/2022 12:03:22 Reason for Referral None Reported. Results Created Date Observation Date Name Description Value Unit Range Abnormal Flag Note LastModifiedBy Organization Detail LastModifiedTime 07/04/19 23 07/04/2022 rapid SARS CoV 2 Ag, QL IA, respi rator y speci men Covid-19 (ref: neg) negati ve Not Available [facility] [address] [facility], [place], [address], 07/04/2022 11:44:48 07/04/19 23 07/04/2022 rapid SARS CoV 2 Ag, QL IA, respi rator y speci men Control Visual ized/V alid Not Available [facility] [address] [facility], [place], [address], 07/04/2022 11:44:48 07/04/19 23 07/04/2022 rapid SARS CoV 2 Ag, QL IA, respi rator y speci men Location [facility], [address] [facility], [place] [address], [id number] Not Available [facility] [address] [facility], [place], [address], 07/04/2022 11:44:48 05/08/20 22 05/08/2022 XR, chest [...] Leone M.D. 2021 11:53: 41 AM EST. [email or web address] [employer] [employer] [address] [address], [place], [address], 08/06/2022 12:49:04 10/08/1910/07/2022 XR, pelvi s, 3 [...] NGUYEN M.D. 023 10:47: 33 AM EDT. [email or web address] [facility] [address] [facility] [address], [place], [address], 10/07/2022 18:32:41 10/08/1910/07/2022 hip uni W or [...] NGUYEN M.D. 023 10:47: 33 AM EDT. [email or web address] [facility] [address] [facility] [address], [place], [address], 10/07/2022 18:32:16 Result Notes Documentation Provider Name [...] AM EST. FADI NASCIMENTO [address], [place], [address], [place] [facility] 08/06/2022 12:49:04 Xr, Pelvis, [...] AM EDT. FADI Clemens [address], [place], [address], [place] [facility] 10/07/2022 18:32:41 Procedures Surgical History Date Name Laterality Status Provider Name and Address Organization Details Recorded Time 07/04/19 23 Nebulizer treatment - DH completed FADI Clemens [address], [place], [address], [place] [facility] 07/04/2022 12:38:06 05/07/20 22 Nebulizer treatment - DH completed FADI NASCIMENTO [address], [place], [address], [place] [facility] 05/07/2022 10:29:59 total replacement of right hip joint completed FADI Young [address], [place], [address], [place] [facility] 10/04/2021 10:27:45 Gastric bypass for obesity completed FADI Young [address] [place], [address], [place] [facility] 10/04/2021 10:28:00 bilateral extraction of cataracts completed FADI Young [address], [place], [address], [place] [facility] 10/04/2021 10:28:07 biopsy of breast completed FADI Young [address], [place], [address], [place] [facility] 10/04/2021 10:28:14 tonsilectomy/a denoids completed FADI Young [address], [place], [address], [place] [facility] 10/04/2021 10:29:26 Imaging Results None recorded. Procedure Notes None recorded. Medical Equipment None Reported. Allergies Allergen ID Allergen Name Allergen Category Reaction Reaction Severity Criticality Documentation Date Start Date Code Code System Note Provider Name and Address Organization Details Recorded Time 018983 Non-stero idal anti-infl ammatory agent (substanc e) medicatio n Not available Not available Not available 10/04/2021 38701 5008 SNOMED FADI Santiago [address] [place], [address], [place] [facility] 2 10:52:20 [id number] sucralfat e medicatio n Not available Not available Not available 10/06/2022 [id number] RxNorm Hollie Jiang NP [address] [place], [address], [place] [facility] 3 12:01:45 [...] % 60 /min 108/62 mm[Hg] Not Available [facility] 2 10:29:44 Date Recorded Oxygen saturation Oxygen saturation in Arterial blood by Pulse oximetry Body temperature Respiratory rate Heart rate Systolic And Diastolic Provider Name and Address Organization Details Last Updated DateTime 3 97 % 97 % 98.2 [degF] 18 /min 65 /min 124/68 mm[Hg] Not Available [facility] 3 12:06:44 Date Recorded Body temperature Oxygen saturation Oxygen saturation in Arterial blood by Pulse oximetry Respiratory rate Heart rate Systolic And Diastolic Provider Name and Address Organization Details Last Updated DateTime 2 98.3 [degF] 98 % 98 % 16 /min 82 /min 126/74 mm[Hg] Not Available [facility] 2 12:32:06 Date Recorded Respiratory rate Provider Name a ar Address Organization Details Last Updated DateTime 05/07/2022 20 /min FADI NASCIMENTO [address] [place], [address], [place] [facility] 05/07/2022 10:29:35 Date Recorded [...] % 96 % 110/72 mm[Hg] Not Available [facility] 2 09:48:07 Social History Question Answer Notes LastModified by Organizat ion Details LastModified Time Tobacco Smoking Status Former Smoker FADI Young [address], [place], [address], [place] [facility] 10/04/2021 10:29:06 Do You Have An Advance Directive? Yes [email or web address] Information not available 10/06/2022 What Is Your Code Status? Full Code [email or web address] Information not available 10/06/2022 Within The Past 12 Months, Has It Happened That The Food You Bought Just Didn't Last And You Didn't Have Money To Get More. Never True [email or web address] Information not available 10/06/2022 Within The Past 12 Months, Have You Worried That Your Food Would Run Out Before You Got Money To Buy More. Never True Information not available 10/06/2022 Fall Risk: Do You Feel Unsteady When Standing Or Walking? No [email or web address] Information not available 10/06/2022 Excessive Alcohol Or Drug Use No [email or web address] Information not available 10/06/2022 Does This Patient Have A PCP? Yes [email or web address] Information not available 10/06/2022 ADL: Do You Need Help With Daily Activities Such As Bathing, Preparing Meals, Dressing, Or Cleaning? No [email or web address] Information not available 10/06/2022 What Is Your Current Pack Years? 10-19packye ars [email or web address] Information not available 10/06/2022 Sex: Unknown Functional [...] ICD10 Code Diagnosis IMO Codes Diagnosis Note [id number] FADI Arevalo [facility] - [address] [place] [address] 10/04/2021 09:57:17 10/09/2021 09:37:20 Wound cellulitis [id number] L03.90 [id number] ASIF LOVELL NP [facility] [address] [place] [address] 01/03/2022 12:26:14 01/05/2022 09:24:30 Candidal intertrigo [id number] B37.2 [id number] FADI NASCIMENTO [facility] [address] [place] [address] 05/07/2022 09:43:13 05/10/2022 20:18:20 Community acquired pneumonia [id number] J18.9 Status of condition: Acute. Testing/Re sults:CXR [...] up precaution s Bilateral lower limb edema [id number] R60.0 Status of condition: Chronic. Testing/Re sults:none Discussion :ddx includes CHF, PVD, DVT Plan, Medication Management & Follow-up recommenda tions:Cont inue eval and work up with pcp [id number] FADI Clemens [facility] [address] [place] [address] 07/04/2022 11:34:05 07/06/2022 08:32:25 Acute bronchitis [id number] J20.9 Essential hypertension [id number] I10 [id number] Hollie Jiang NP [facility] [address] [place] [address] 10/06/2022 11:52:31 10/08/2022 18:44:12 Wound cellulitis [id number] L03.90 Status of condition: Exacerbati on/Acute on [...] Hall Member ID Guarantor Name 01/03/2022 1 [facility] (MEDICARE REPLACEMENT/A DVANTAGE - PPO) [id number] Mayra Rodriguez [id number] [facility] 10/09/2022 1 [facility] (MEDICARE REPLACEMENT/A DVANTAGE - PPO) [id number] Mayra Rodriguez [id number] [facility] 08/20/2020 1 *SELF PAY* Mayra Rodriguez [id number] [facility] 10/09/2021 1 [facility] (MEDICARE REPLACEMENT/A DVANTAGE - HMO) [id number] Mayra Rodriguez [id number] [facility] 12/17/2022 2 [place] [facility] Mayra Gatesman [id number] [facility] 01/03/2022 1 [facility] (MEDICARE REPLACEMENT/A DVANTAGE - HMO) [id number] Mayra Rodriguez [id number] [facility] 10/09/2021 1 [facility] (MEDICARE REPLACEMENT/A DVANTAGE - HMO) [facility] Mayra Rodriguez [id number] [facility] 10/09/2021 1 [facility] (MEDICARE REPLACEMENT/A DVANTAGE - HMO) [facility] Mayra Rodriguez [id number] Mayra Rodriguez Notes Date Note Type Note [...] today.Of note does reports she went to [facility] ER last night to get this looked at and she left after the wait was going to be 10+ hours, this was [facility]. FADI Young [address], [place], [address], [place] [facility] 10/04/2021 11:19:03 01/03/2022 text/html [...] well. ASIF LOVELL NP [address], [place], [address], [place] [facility] 01/03/2022 13:03:27 05/07/2022 text/html [...] showed RBBB. FADI NASCIMENTO [address], [place], [address], [place] [facility] 05/07/2022 10:38:42 07/04/2022 text/html [...] helping. Madeleine Pitts, FADI [address], [place], [address], [place] [facility] 07/04/2022 12:45:03 10/06/2022 text/html [...] edema. Hollie Jiang NP [address], [place], [address], [place] [facility] 10/06/2022 12:38:29 OBGyn Episode No OBEpisode recorded.
== END 2025-03-23 12:05 | disposition home or self-care (01) ==
LOC: HO.HGI 11:11
PROVIDERS: PCP Internal Medicine; Visit Provider Nurse Practitioner
DX: K21.00 Gastro-esophageal reflux disease with esophagitis, without bleeding (principal); K59.00 Constipation, unspecified; Z86.0101 Personal history of adenomatous and serrated colon polyps; G47.33 Obstructive sleep apnea (adult) (pediatric)
CPT/HCPCS: 99213

== ENCOUNTER → 2025-03-23 11:10 | Outpatient (BNVA) | payer OTHER, SELFPAY | PROVIDERS: PCP Internal Medicine; Visit Provider Nurse Practitioner | DX: Z01.818 Encounter for other preprocedural examination (principal); G47.33 Obstructive sleep apnea (adult) (pediatric); K21.00 Gastro-esophageal reflux disease with esophagitis, without bleeding; D12.6 Benign neoplasm of colon, unspecified | CPT/HCPCS: 99212 ==

== ENCOUNTER 2025-04-16 08:57 | Outpatient (AMB) | payer OTHER, SELFPAY ==
[2025-04-16 09:06] VITALS: BP 114/72; PULSE 78; BMI 32.4
--- NOTE | 2025-04-16 09:06 | MHC.OFFVIS ---
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 Allergies sucralfate (Carafate) Allergy (Intermediate, Verified 04/16/25 09:11) hives NSAIDS (Non-Steroidal Anti-Inflamma Adverse Reaction (Intermediate, Verified 04/16/25 09:11) cannot take due to gastric bypass history Medication List - Last Reconciled 04/16/25 by DEB Rossi acetaminophen 650 mg PO Q6H PRN alendronate (Fosamax) 70 mg PO [place] 90 days apixaban (Eliquis) 5 mg PO BID ascorbic acid (vitamin C) 200 mg PO DAILY bisacodyl 10 mg PO BEDTIME bisacodyl (Dulcolax (bisacodyl)) 10 mg (2 x 5 mg) PO BEDTIME 2 days bupropion HCl SR (Wellbutrin SR) 150 mg PO QAM cholecalciferol (vitamin D3) 50 mcg PO DAILY escitalopram oxalate (Lexapro) 20 mg PO DAILY ferrous sulfate (Feosol) 325 mg PO BEDTIME iron,gddrsoco-WW-wlashzng-min 30 mg iron- 800 mcg (Opurity Multivitamin) 1 tab PO DAILY lansoprazole 30 mg PO BID lorazepam 0.25 mg PO DAILY PRN metoprolol tartrate 50 mg PO BID 90 days Motegrity (prucalopride) 2 mg PO DAILY NS peg 3350-electrolytes 236-22.74-6.74 -5.86 gram (Golytely) 240 mL PO Q10M 1 day ropinirole 0.25 mg PO DAILY HPI HPI 3 mth f/up: Details: Mayra is a 79 year-old female with past medical history of morbid obesity with prior bariatric surgery, obstructive sleep apnea, hypertension, CKD, persistent atrial fibrillation who presents for follow-up. Today she reports she has been doing well since her last visit in January. She reports good activity tolerance with no concerning symptoms. She is still going to the gym a few times weekly and using the treadmill, stationary bike and rowing machine. She denies shortness of breath with activity. No chest discomfort, heart palpitations, lightheadedness. She is taking all meds as directed and denies any bleeding issues. She has chronic lymphedema in her legs and uses Vel wraps throughout the day and electronic pumping wraps for 1 hour each day. She has had no recent increase in her swelling. Currently pleased with how she is feeling. [facility] Medical History Tubular adenoma of colon Pre-op evaluation Supraumbilical hernia Nausea Encounter for general adult medical examination with abnormal findings Abdominal wall bulge Hospital discharge follow-up Sepsis with acute renal failure and septic shock Streptococcal bacteremia Bacteremia due to Staphylococcus aureus MSSA bacteremia Atrial fibrillation with rapid ventricular response Atrial fibrillation CKD stage 3a, GFR 45-59 ml/min Osteoporosis Acute kidney injury superimposed on CKD Thoracolumbar back pain Decreased GFR ANIYA (acute kidney injury) Self-care deficit in patient living alone Chronic wound Seroma of musculoskeletal structure after musculoskeletal system procedure New onset a-fib History of septic shock Unspecified open wound, right hip, initial encounter Sleep disorder Abnormal skin growth Ex-smoker Mitral annular calcification Aortic valve calcification Stasis edema of both lower extremities Family history of colon cancer Nail fungus Nocturnal hypoxemia Right bundle branch block Premature atrial contractions Hip pain, right Soft tissue infection Sepsis Septic shock Acute hypotension Oropharyngeal dysphagia Post-COVID chronic dyspnea Chronic GERD Peripheral vascular disease SOULEYMANE (obstructive sleep apnea) Wound, open, hip or thigh with complication Preoperative cardiovascular examination Change in bowel movement Traumatic seroma of right thigh Postprocedural seroma of skin and subcutaneous tissue following other procedure Open wound of right hip and thigh Right rib fracture Menopause Pain management Pain management contract agreement Open wound of right lower leg with complication Shortness of breath Cough Edema Influenza A H1N1 infection Cellulitis of right leg Varicose veins of right lower extremity with inflammation Enterococcus faecalis infection Abscess Hip pain, right Obesity Lymphedema Morbid obesity due to excess calories Colon cancer screening Medicare annual wellness visit, subsequent Family history of anesthesia complication Back pain Arthritis Renal calculi Post-influenza syndrome Tremor Peripheral vascular disease Right bundle branch block (RBBB) Aortic valve calcification Mitral annular calcification COPD (chronic obstructive pulmonary disease) Restrictive lung disease Depression, major, recurrent Hypertension, essential Surgical History S/P total right hip arthroplasty History of excision of lesion (10/20/23) History of total hip arthroplasty S/P gastric bypass History of surgery on lower extremity (01/25/23) History of surgery H/O colonoscopy History of cataract extraction History of bilateral tubal ligation History of tonsillectomy Family History Father No problems noted. Mother Alzheimer's disease Maternal Grandmother Cancer Maternal Grandfather No problems noted. Paternal Grandfather No problems noted. Paternal Grandmother No problems noted. Maternal Aunt Cancer Sister Colon cancer Son No problems noted. Daughter No problems noted. Social History Household Members: None Housing: Other Housing Other:: Mobile home Are you a primary transitional care liaison to a significant other at home: No Do you presently have visiting nurse or other home services: Yes (Wound Care) Alcohol intake: former Patient Tobacco Use Status: Former Tobacco user Tobacco use type: Cigarette Years Smoked: 40 e-Cigarette/Vaping Use: Former Use Second Hand Smoke Exposure: No Advance Directives Date on File: 03/13/15 service: No Current occupational status: retired and other Current occupation: right handed Cognitive needs: No Hearing needs: No Vision needs: No Female Reproductive History Menstrual Age of Menarche: 13 Review of Systems ENT Reports dizziness Card Denies chest pain, Denies chest pain at rest, Denies chest pain with activity, Denies rapid heart rate, Denies pedal edema, Denies edema, Denies leg edema, Denies lightheadedness, Denies palpitations, Denies dyspnea, Denies dyspnea on exertion and Denies orthopnea Resp Denies cough, Denies dyspnea and Denies dyspnea on exertion GI Denies hematochezia and Denies change in stool character Musc Denies abnormal gait, Reports limited range of motion, Reports muscle cramps, Denies muscle weakness, Denies numbness, Denies radiating pain into limb, Denies stiffness and Denies tingling Neuro Denies abnormal gait, Reports dizziness, Denies numbness and Denies tingling Endo Denies palpitations Physical Exam Vital Signs: BMI result Body Mass Index 32.4 Const General: cooperative, healthy appearing, comfortable and no acute distress Orientation/consciousness: patient oriented x3 Neck Neck: Yes normal visual inspection Resp Effort & Inspection: normal respiratory effort Auscultation: clear to auscultation bilaterally, no crackles, no rales, no rhonchi and no wheezes Cardio Rate: regular rate Rhythm: regular rhythm Heart sounds: S1 normal heart sound present, S2 normal heart sound present, no gallops, no murmurs and no rubs Neuro General: patient oriented x3 Extrem General: Yes normal to inspection, No no pedal edema and No calf tenderness Psych Appearance: grossly normal Mental Status: mental status grossly normal Speech and movement: Normal speech and movement present Office Procedures EKG Details: Today, read by me, atrial fibrillation, right bundle branch block, T-wave abnormality inferiorly, rate 78, QTC 444 millisecond [id number], Complete Assessment & Plan Assessment & Plan (1) Atrial fibrillation: Code(s): I48.91 - Unspecified atrial fibrillation Category: Medical Qualifiers: Atrial fibrillation type: paroxysmal Qualified Code(s): I48.0 - Paroxysmal atrial fibrillation Plan: Finding of atrial fibrillation at time of sepsis admission August 2023. Her rhythm has been persistent and Treated with rate control using metoprolol. Last Holter monitor done 11/21/2024 for 3 days shows atrial fibrillation with average heart rate 89 beats per minute. She is on Eliquis for anticoagulation and is tolerating it well. Labs 01/01/2025 showed hematocrit 36.8, labs 01/18/2025 shows creatinine 0.93. Last echo 10/04/2024 shows EF 60-65%, mild LVH, possible early mild aortic stenosis, left atrium severely dilated and right atrium moderately dilated. Since she is asymptomatic and has atrial enlargement, will continue to treat with rate control. We may have difficulty maintaining rhythm control with her enlarged atrial sizes. Continue metoprolol tartrate 50 mg in the a.m. and 25 mg in the p.m.. Continue Eliquis 5 mg b.i.d.. Cardiology follow-up 6 months, sooner if needed. (2) Hypertension, essential: Code(s): I10 - Essential (primary) hypertension Category: Medical Plan: Blood pressure goal less than 130/80. Well controlled at this time. No med changes made. (3) SOULEYMANE (obstructive sleep apnea): Comment: PATIENT HAS PAST HISTORY OF OBSTRUCTIVE SLEEP APNEA AND STOPPED USING THE CPAP ABOUT 6 YEARS AGO. NOW SHE IS BACK ON CPAP USAGE. SHE IS VERY COMPLIANT AND SLEEPS WELL. Code(s): G47.33 - Obstructive sleep apnea (adult) (pediatric) Category: Medical Plan: She reports compliance with CPAP. Plan I discussed with the patient that her atrial fibrillation is a persistent condition, meaning her heart beats irregularly all the time. I explained that metoprolol helps keep her heart rate controlled and that Eliquis is important for preventing strokes. We reviewed that she is doing well, feeling good, and is encouraged to continue her medications and active lifestyle. A follow-up appointment is scheduled in six months, and she was advised to contact us sooner if any problems arise. Patient Instructions: - Continue taking your metoprolol and Eliquis as prescribed to manage your heart condition. - Keep up with your exercise routine at the gym, as it is good for your health. - Continue to manage your leg swelling (lymphedema) by using the wraps and electric pump for an hour each day. - Let us know if you develop any new problems or your symptoms change. - Your next follow-up appointment will be in six months. Patient was informed and verbally consented to the use of an ambient scribe for clinic note documentation during this visit. Visit time spent on chart review, interview, assessment, orders, documentation. Coding Level of Care Code Est Pt Level 4 (30106) Complex visit Add On G2211 Diagnoses Paroxysmal atrial fibrillation I48.0 Atrial fibrillation type: paroxysmal Hypertension, essential I10 SOULEYMANE (obstructive sleep apnea) G47.33 CPT Codes EKG - CPT: 69896-[id number], Complete ([id number]) Time Spent (min) 28
== END 2025-04-16 09:29 | disposition home or self-care (01) ==
LOC: HO.HCS 08:57
PROVIDERS: PCP Internal Medicine; Visit Provider Nurse Practitioner Family
DX: I48.0 Paroxysmal atrial fibrillation (principal); I10 Essential (primary) hypertension; G47.33 Obstructive sleep apnea (adult) (pediatric)
CPT/HCPCS: 93010; 99214; G2211

== ENCOUNTER → 2025-04-16 08:57 | Outpatient (BNVA) | payer OTHER, SELFPAY | PROVIDERS: PCP Internal Medicine; Visit Provider Nurse Practitioner Family | DX: I48.0 Paroxysmal atrial fibrillation (principal); I10 Essential (primary) hypertension; I45.10 Unspecified right bundle-branch block; G47.33 Obstructive sleep apnea (adult) (pediatric) | CPT/HCPCS: 93005; 99212 ==